=== PATIENT | female | born 1940 | race Caucasian/White ===

== ENCOUNTER 2016-09-05 10:53 | Inpatient (IN) | payer OTHER ==
[~2016-09-05] VITALS: Ht 162.6 cm; Wt 69.8 kg
[2016-09-05] MEDS ORDERED: SODIUM CHLORIDE 0.9% 1000ML 1,000 ML IV STA (11:17)
[2016-09-05] MEDS ORDERED: ONDANSETRON INJ 2 MG/ML 2 ML VIAL IV STA (11:17)
--- NOTE | 2016-09-05 11:19 | EMERGENCY ROOM VISIT NOTE ---
History Report prepared by Radha: Esteban Benjamin Under the Supervision of: Abril EstesO. First contact with patient: 11:10 Chief Complaint: DIARRHEA Stated Complaint: NAUSEA, WEAKNESS, PAGAN, DIARRHEA Nursing Triage Summary: Pt had a colonoscopy approx 1 mo ago, unable to do the whole thing. Pt reports ongoing nausea, diarrhea since May. Upper abd pain. Emesis last night. Also reports wheezing/coughing. History of Present Illness The patient is a 76 year old female who presents to the Emergency Room with complaints of a worsening illness that started around 3 months ago. The patient called her primary care physician's office today, and was recommended to be seen here for evaluation. She says that she has been having nausea, upper abdominal pain, diarrhea, and a cough. She notes that she has been wheezing as well. The patient had a colonoscopy a month ago, but it could not go the whole way. She says that her kidneys are off a bit. The patient says that her nausea and diarrhea have worsened recently, and she has been having trouble eating. She vomited last night. The patient says that her doctor wants the patient to get a CT of her chest. She states that she had an x-ray which showed a possible hiatal hernia. The patient denies any fevers or bleeding. She has diabetes and asthma. The patient does not use tobacco products or drink alcohol. She has a history of an appendectomy. Source of History: patient, family Onset: 3 months ago Position: other (global - illness) Timing: worsening Associated Symptoms: + abdominal pain, + cough, + diarrhea, + nausea, + vomiting, No fevers Note: Associated symptoms: Wheezing. Kidneys off a bit. Denies any bleeding. Review of Systems See HPI for pertinent positives & negatives. A total of 10 systems reviewed and were otherwise negative. Past Medical & Surgical Medical Problems: (1) Asthma (2) Cirrhosis (3) CKD (chronic kidney disease), stage IV (4) DM type 2 (diabetes mellitus, type 2) (5) Dyslipidemia (6) GERRY (generalized anxiety disorder) (7) GERD (gastroesophageal reflux disease) (8) HTN (hypertension) Surgical Problems: (1) H/O sinus surgery (2) History of hysterectomy (3) Hx of appendectomy (4) S/P cardiac cath (5) S/p rectocele repair Family History Family history omitted secondary to patient's advanced age. Social History Smoking Status: Never Smoker Alcohol Use: none Marital Status: Housing Status: lives with family Occupation Status: retired Current/Historical Medications Scheduled Amlodipine (Norvasc), 5 MG PO DAILY Atorvastatin (Lipitor), 10 MG PO HS Buspirone Hcl (Buspirone Hcl), 10 MG PO TID Fluoxetine (Prozac), 40 MG PO DAILY Fluoxetine (Prozac), 20 MG PO DAILY Lutein (Hm Lutein), 1 TAB PO DAILY Multiple Vitamins W/ Minerals (Icaps), 1 CAP PO DAILY Ranitidine Hcl (Zantac), 150 MG PO BID Scheduled PRN Albuterol (Ventolin Hfa), 2 PUFFS INH Q4 PRN for SOB/Wheezing Loperamide Hcl (Imodium), 2 MG PO UD PRN for Diarrhea Lorazepam (Ativan), 0.5 MG PO HS PRN for Anxiety Ondansetron Hcl (Zofran), 4 MG PO Q6H PRN for Nausea Allergies Coded Allergies: Erythromycin (Unverified Allergy, Mild, STOMACH PAIN, 09/05/16) Physical Exam Vital Signs Date Time Temp Pulse Resp B/P Pulse Ox O2 Delivery O2 Flow Rate FiO2 09/05/16 15:13 91 16 09/05/16 15:01 152/78 09/05/16 14:58 91 22 09/05/16 14:43 88 18 09/05/16 14:31 142/85 09/05/16 14:28 90 18 93 09/05/16 14:13 87 20 93 09/05/16 14:01 158/83 09/05/16 13:58 83 18 94 09/05/16 13:43 85 20 96 09/05/16 13:31 132/75 09/05/16 13:28 84 18 94 09/05/16 13:13 83 19 93 09/05/16 13:01 145/84 09/05/16 12:58 87 28 94 09/05/16 12:45 127/89 09/05/16 12:29 88 09/05/16 12:23 86 19 95 09/05/16 12:08 86 19 93 09/05/16 12:01 168/84 09/05/16 11:53 85 16 95 09/05/16 11:44 159/79 09/05/16 11:05 36.8 101 20 145/73 98 Room Air Physical Exam GENERAL: Patient is awake, alert, mildly anxious appearing but comfortable. EYES: The conjunctivae are clear. The pupils are round and reactive. EARS, NOSE, MOUTH AND THROAT: The nose is without any evidence of any deformity. Mucous membranes are moist tongue is midline NECK: The neck is nontender and supple. RESPIRATORY: Normal respiratory effort is noted there is no evidence of wheezing rhonchi or rales CARDIOVASCULAR: Regular rate and rhythm noted there no murmurs rubs or gallops normal S1 normal S2 GASTROINTESTINAL: The abdomen is moderately distended and diffusely tender. Epigastric tenderness to palpation but no guarding or rigidity. MUSCULOSKELETAL/EXTREMITIES: There is no evidence of gross deformity full range of motion is noted in the hips and shoulders SKIN: Trace pedal edema bilaterally. NEUROLOGIC: Patient is awake alert and oriented x3. Medical Decision & Procedures ER Provider Diagnostic Interpretation: CT results as stated below per my review and radiologist interpretation. CHEST CT WITHOUT CONTRAST CT DOSE: HISTORY: Pain chart and abd pain TECHNIQUE: Multiaxial CT images of the chest were performed without contrast. COMPARISON: None. FINDINGS: Fixed hiatal hernia. The bulk of the stomach is superior to the diaphragm. Moderate amount of surrounding and/or reactive fluid within the hiatal hernia. Trace amount of perihepatic ascites. No significant gastric distention. Esophagus is air-filled. Esophagus shows no significant distention. Minimal nonspecific interstitial changes in the left mid to lower lung. No well-defined focal infiltrate is appreciated. No significant mediastinal or hilar adenopathy. Partial substernal extension of the right thyroid. IMPRESSION: 1. Hiatal hernia with the bulk of the stomach superior to the diaphragmatic hiatus. 2. Moderate amount of free fluid surrounding the hiatal hernia presumably reactive. 3. Trace perihepatic ascites. 4. Subtle minimal interstitial change. Electronically signed by: Bud Short M.D. 09/05/2016 12:40 PM Dictated Date/Time: 09/05/2016 12:[address] SCAN OF THE ABDOMEN AND PELVIS WITHOUT IV CONTRAST CLINICAL HISTORY: Epigastric abdominal pain. COMPARISON STUDY: No priors. TECHNIQUE: CT scan of the abdomen and pelvis is performed from the lung bases to the proximal femora. Images are reviewed in the axial, sagittal, and coronal planes. IV contrast was not administered for this examination as per the referring clinician. Note that the examination was performed in significantly suboptimal fashion without oral and IV contrast. Automated dose control exposure was utilized. CT DOSE: 634.71 mGy.cm FINDINGS: Lung bases: The heart is normal in size and there is a small pericardial effusion. There is elevation of left hemidiaphragm with left basilar atelectasis. No airspace consolidation or pleural effusion is identified. Scattered calcified granulomas are noted at the right lung base. Liver: The unenhanced liver is cirrhotic in morphology and heterogeneous in attenuation. There is nodularity of the surface contour and widening of the fissures. There is recanalization of the periumbilical vein. There is mild central intrahepatic biliary ductal dilatation. Gallbladder: Surgically absent noting clips in the gallbladder fossa. Spleen: The spleen is enlarged measuring 15 cm in length. There are perisplenic collateral vessels with evidence of a splenorenal shunt. Pancreas: The unenhanced pancreas is atrophic and grossly unremarkable. Adrenal glands: Unremarkable. Kidneys: The unenhanced kidneys are atrophic and without hydronephrosis. There are least 3 small nonobstructing left renal calculi measuring up to 3 mm. No right renal calculi are identified. There is no evidence of contour deforming renal mass lesion. Subcentimeter cortical hypodensities likely represent cysts but are too small for definitive characterization. Abdominal vasculature: The abdominal aorta is normal in course and caliber noting moderate atherosclerotic calcification. Stomach and bowel: There is a large hiatal hernia with over half of the stomach located in the thoracic cavity. Ascitic fluid is also contained within a hiatal hernia. The duodenum is normal in configuration. A large duodenal diverticulum is noted. There is no bowel obstruction. The appendix is not identified and reported surgically absent. Peritoneum: There is a small volume of abdominopelvic ascites. No intraperitoneal free air is seen. Lymphadenopathy: None. Pelvic viscera: The bladder is decompressed and grossly unremarkable. The uterus is surgically absent. No adnexal lesion is seen. Skeletal structures: The skeletal structures are osteopenic. No lytic or blastic lesions are seen. There is mild lumbosacral spondylosis. Hemangiomas are noted in the lower thoracic levels. IMPRESSION: 1. Significantly suboptimal examination without oral and IV contrast. 2. There are no acute infectious or inflammatory findings in the abdomen or pelvis. 3. Cirrhotic liver morphology with evidence of portal hypertension including splenomegaly, a small volume of abdominopelvic ascites, omental collaterals, and a splenorenal shunt. 4. Large hiatal hernia with over half of the stomach located in the thoracic cavity. 5. Nonobstructing left renal calculi. 6. Additional findings as above. Electronically signed by: Ty Montano M.D. 09/05/2016 1:15 PM Dictated Date/Time: 09/05/2016 12:42 PM Laboratory Results 09/05/16 11:30 Red Blood Count 4.61, Mean Corpuscular Volume 89.2, Mean Corpuscular Hemoglobin 28.2, Mean Corpuscular Hemoglobin Concent 31.6, Mean Platelet Volume 10.4, Neutrophils (%) (Auto) 76.1, Lymphocytes (%) (Auto) 16.4, Monocytes (%) (Auto) 6.6, Eosinophils (%) (Auto) 0.4, Basophils (%) (Auto) 0.3, Neutrophils # (Auto) 10.51, Lymphocytes # (Auto) 2.26, Monocytes # (Auto) 0.91, Eosinophils # (Auto) 0.06, Basophils # (Auto) 0.04 09/05/16 11:30 Test 09/05/16 11:20 09/05/16 11:30 09/05/16 15:25 Urine Color DK YELLOW Urine Appearance CLEAR (CLEAR) Urine pH 5.0 (4.5-7.5) Urine Specific [place] 1.022 (1.000-1.030) Urine Protein NEG (NEG) Urine Glucose (UA) NEG (NEG) Urine Ketones TRACE (NEG) Urine Occult Blood NEG (NEG) Urine Nitrite NEG (NEG) Urine Bilirubin NEG (NEG) Urine Urobilinogen NEG (NEG) Urine Leukocyte Esterase NEG (NEG) White Blood Count 13.81 K/uL (4.8-10.8) Red Blood Count 4.61 M/uL (4.2-5.4) Hemoglobin 13.0 g/dL (12.0-16.0) Hematocrit 41.1 % (37-47) Mean Corpuscular Volume 89.2 fL (80-100) Mean Corpuscular Hemoglobin 28.2 pg (25-34) Mean Corpuscular Hemoglobin Concent 31.6 g/dl (32-36) Platelet Count 214 K/uL (130-400) Mean Platelet Volume 10.4 fL (7.4-10.4) Neutrophils (%) (Auto) 76.1 % Lymphocytes (%) (Auto) 16.4 % Monocytes (%) (Auto) 6.6 % Eosinophils (%) (Auto) 0.4 % Basophils (%) (Auto) 0.3 % Neutrophils # (Auto) 10.51 K/uL (1.4-6.5) Lymphocytes # (Auto) 2.26 K/uL (1.2-3.4) Monocytes # (Auto) 0.91 K/uL (0.11-0.59) Eosinophils # (Auto) 0.06 K/uL (0-0.5) Basophils # (Auto) 0.04 K/uL (0-0.2) RDW Standard Deviation 58.6 fL (36.4-46.3) RDW Coefficient of Variation 18.1 % (11.5-14.5) Immature Granulocyte % (Auto) 0.2 % Immature Granulocyte # (Auto) 0.03 K/uL (0.00-0.02) Prothrombin Time 12.3 SECONDS (9.0-12.0) Prothromb Time International Ratio 1.1 (0.9-1.1) Activated Partial Thromboplast Time 26.9 SECONDS (21.0-31.0) Partial Thromboplastin Ratio 1.0 Anion Gap 9.0 mmol/L (3-11) Est Creatinine Clear Calc Drug Dose 24.2 ml/min Estimated GFR () 29.2 Estimated GFR (Non- 25.2 BUN/Creatinine Ratio 11.7 (10-20) Calcium Level 8.9 mg/dl (8.5-10.1) Total Bilirubin 0.9 mg/dl (0.2-1) Direct Bilirubin 0.4 mg/dl (0-0.2) Aspartate Amino Transf (AST/SGOT) 100 U/L (15-37) Alanine Aminotransferase (ALT/SGPT) 46 U/L (12-78) Alkaline Phosphatase 202 U/L (45-117) Total Creatine Kinase 48 U/L (26-192) Creatine Kinase MB 0.9 ng/ml (0.5-3.6) Creatine Kinase MB Ratio 1.9 (0-3.0) Troponin I 0.023 ng/ml (0-0.045) Total Protein 8.2 gm/dl (6.4-8.2) Albumin 2.9 gm/dl (3.4-5.0) Lipase 177 U/L (73-393) Lactic Acid Level 0.9 mmol/L (0.4-2.0) Laboratory results per my review. Medications Administered Medications (Trade) Dose Ordered Sig/Edilson Route Start Time Stop Time Status Last Admin Dose Admin Sodium Chloride (Nss 1000ml) 1,000 ml @ 999 mls/hr Q1H1M STAT IV 09/05/16 11:17 09/05/16 12:17 DC 09/05/16 11:41 999 MLS/HR Ondansetron HCl 4 mg 4 mg NOW STAT IV 09/05/16 11:17 09/05/16 11:20 DC 09/05/16 11:42 4 MG Pantoprazole Sodium/Syringe (Protonix Inj/ Syringe) 10 ml @ 5 mls/min NOW ONCE IV 09/05/16 11:30 09/05/16 11:31 DC 09/05/16 12:17 5 MLS/MIN ECG Indication: nausea Rate (beats per minute): 96 Rhythm: normal sinus Findings: no ectopy, other (no acute ST segment abnormalities) Comparison ECG Date: no prior available ED Course 1111: The patient was evaluated in room C9. A complete history and physical examination were performed. 1117: Ordered Zofran Inj 4 mg IV, NSS 1000 ml @ 999 mls/hr IV. 1130: Ordered Pantoprazole Sodium 40 mg/Syringe 10 ml @ 5 mls/min IV. 1338: I reevaluated and updated the patient. 1347: I discussed the patient with [facility] - she recommends we discuss the patient with cardiothoracic surgery. 1427: I reevaluated and updated the patient. 1429: I discussed the patient with Dr. [place]derm[place] [facility] [place] - he recommends keeping the patient and doing a formal surgical evaluation to see if the hiatal hernia would be amenable to surgery. 1437: I reevaluated the patient and she is resting comfortably. The patient verbally expressed understanding and agreement with the treatment plan. The patient will be evaluated for further treatment. 1446: I discussed the patient with Dianne Dye. She will evaluate the patient for further treatment. Medical Decision Prior records/ancillary studies reviewed. Triage Nursing notes reviewed. Differential diagnosis: Etiologies such as appendicitis, diverticulitis, PUD, biliary pathology, UTI, pancreatitis, obstruction, mesenteric ischemia, aortic pathology, infections, inflammatory bowel disease, renal colic, as well as others were entertained. The patient is a 76-year-old female who presented to the emergency department for an evaluation of epigastric pain as well as lower chest pain. The patient has had ongoing symptoms for approximately 4 months. The symptoms appear to be significantly debilitating to her and she is unable to eat or drink without having significant pain. The patient had upper abdominal pain to palpation but does not have a surgical abdomen on palpation. The patient was found have a large hiatal hernia on x-ray. CT the abdomen and pelvis as well as chest reveals a very significant hiatal hernia. I feel this explains the patient's symptoms. She was treated with IV fluids as well as proton pump inhibitor in the emergency department. She was also given Zofran in the emergency department. On subsequent reevaluation she was somewhat improved. I initially discussed her case with the on-call airconditioning engineer group. I then discussed her case with cardiothoracic surgery. I feel the patient may require inpatient management for further disposition and possibly testing. Given the size and symptoms that she is having with this hiatal hernia and may be amenable to surgical treatment. The patient was agreeable to this. I discussed her case with the on-call [facility] hospitalist group. They've agreed to evaluate the patient in the emergency department for further management and disposition. Consults Time Called: 1344 Consulting Physician: [facility] Returned Call: 1340 I discussed the patient with [facility] - she recommends we discuss the patient with cardiothoracic surgery. Additional Consults: Time Called: 1415 Consulted Physician: Dr. Baldemar SANTOS CT surgery Returned Call: 1423 Additional Comments: I discussed the patient with Dr. Baldemar SANTOS CT surgery - he recommends keeping the patient and doing a formal surgical evaluation to see if the hiatal hernia would be amenable to surgery. Time Called: 1440 Consulted Physician: Dianne Dye Returned Call: 1443 Additional Comments: I discussed the patient with Dianne Dye. She will evaluate the patient for further treatment. Impression Primary Impression: Hiatal hernia Additional Impressions: Epigastric abdominal pain Nausea Scribe Attestation The scribe's documentation has been prepared under my direction and personally reviewed by me in its entirety. I confirm that the note above accurately reflects all work, treatment, procedures, and medical decision making performed by me. Departure Information Dispostion Being Evaluated By Hospitalist Referrals Marisol Sepulveda M.D. (PCP) Patient Instructions My [facility] Health Problem Qualifiers
[2016-09-05] MEDS ORDERED: PANTOprazole INJ 40 MG in SYRINGE 0 ML IV ONE (11:30)
[2016-09-05 11:42] LABS: BASO % 0.3 %; BASO ABS # 0.04 K/uL (0-0.2); COMPLETE YES; EOS % 0.4 %; HEMATOCRIT 41.1 % (37-47); IG% 0.2 %; LYMPH % 16.4 %; LYMPH ABS # 2.26 K/uL (1.2-3.4); MEAN CELL VOLUME 89.2 fL (80-100); MEAN CORPUSCULAR HEMOGLOBIN 28.2 pg (25-34); MEAN CORPUSCULAR HGB CONC 31.6 g/dl (32-36); MEAN PLATELET VOLUME 10.4 fL (7.4-10.4); MONO % 6.6 %; NEUT % 76.1 %; PLATELET COUNT 214 K/uL (130-400); RED BLOOD COUNT 4.61 M/uL (4.2-5.4); WHITE BLOOD COUNT 13.81 K/uL (4.8-10.8)
[2016-09-05] MEDS ORDERED: IMD/2 PO (11:43)
[2016-09-05] MEDS ORDERED: RANI150T3 PO (11:43)
[2016-09-05] MEDS ORDERED: ONDA4TAB46 PO (11:43)
[2016-09-05 11:46] LABS: URINE APPEARANCE CLEAR (CLEAR); URINE BILIRUBIN NEG (NEG); URINE COLOR DK YELLOW; URINE NITRITE NEG (NEG); URINE SPECIFIC GRAVITY 1.022 (1.000-1.030); UROBILINOGEN NEG (NEG)
[2016-09-05] MEDS ORDERED: ATOR10TA82 PO (11:46)
[2016-09-05] MEDS ORDERED: FLUO20CA35 PO (11:46)
[2016-09-05] MEDS ORDERED: AMLO-110 PO (11:46)
[2016-09-05] MEDS ORDERED: LUTE1CAP4 PO (11:46)
[2016-09-05] MEDS ORDERED: LORA-741 PO (11:46)
[2016-09-05] MEDS ORDERED: MULTCAP98 PO (11:46)
[2016-09-05] MEDS ORDERED: BUSP-8 PO (11:46)
[2016-09-05] MEDS ORDERED: FLUO40CA8 PO (11:46)
[2016-09-05 11:50] LABS: INR 1.1 (0.9-1.1); PROTHROMBIN TIME (PATIENT) 12.3 SECONDS (9.0-12.0)
[2016-09-05 11:55] LABS: MANUAL MICROSCOPIC REQUIRED? NO; REVIEW REQ? NO
[2016-09-05 11:59] LABS: BUN/CREATININE RATIO 11.7 (10-20); CALCIUM 8.9 mg/dl (8.5-10.1); CREATININE 1.9 mg/dl (0.60-1.20); POTASSIUM 4.2 mmol/L (3.5-5.1)
[2016-09-05 12:04] LABS: CKMB/CK RATIO 1.9 (0-3.0)
--- NOTE | 2016-09-05 12:42 | DIAGNOSTIC IMAGING REPORT ---
CHEST CT WITHOUT CONTRAST CT DOSE: HISTORY: Pain chart and abd pain TECHNIQUE: Multiaxial CT images of the chest were performed without contrast. COMPARISON: None. FINDINGS: Fixed hiatal hernia. The bulk of the stomach is superior to the diaphragm. Moderate amount of surrounding and/or reactive fluid within the hiatal hernia. Trace amount of perihepatic ascites. No significant gastric distention. Esophagus is air-filled. Esophagus shows no significant distention. Minimal nonspecific interstitial changes in the left mid to lower lung. No well-defined focal infiltrate is appreciated. No significant mediastinal or hilar adenopathy. Partial substernal extension of the right thyroid. IMPRESSION: 1. Hiatal hernia with the bulk of the stomach superior to the diaphragmatic hiatus. 2. Moderate amount of free fluid surrounding the hiatal hernia presumably reactive. 3. Trace perihepatic ascites. 4. Subtle minimal interstitial change. Electronically signed by: Bud Short M.D. 09/05/2016 12:40 PM Dictated Date/Time: 09/05/2016 12:36 PM
--- NOTE | 2016-09-05 13:16 | DIAGNOSTIC IMAGING REPORT ---
CT SCAN OF THE ABDOMEN AND PELVIS WITHOUT IV CONTRAST CLINICAL HISTORY: Epigastric abdominal pain. COMPARISON STUDY: No priors. TECHNIQUE: CT scan of the abdomen and pelvis is performed from the lung bases to the proximal femora. Images are reviewed in the axial, sagittal, and coronal planes. IV contrast was not administered for this examination as per the referring clinician. Note that the examination was performed in significantly suboptimal fashion without oral and IV contrast. Automated dose control exposure was utilized. CT DOSE: 634.71 mGy.cm FINDINGS: Lung bases: The heart is normal in size and there is a small pericardial effusion. There is elevation of left hemidiaphragm with left basilar atelectasis. No airspace consolidation or pleural effusion is identified. Scattered calcified granulomas are noted at the right lung base. Liver: The unenhanced liver is cirrhotic in morphology and heterogeneous in attenuation. There is nodularity of the surface contour and widening of the fissures. There is recanalization of the periumbilical vein. There is mild central intrahepatic biliary ductal dilatation. Gallbladder: Surgically absent noting clips in the gallbladder fossa. Spleen: The spleen is enlarged measuring 15 cm in length. There are perisplenic collateral vessels with evidence of a splenorenal shunt. Pancreas: The unenhanced pancreas is atrophic and grossly unremarkable. Adrenal glands: Unremarkable. Kidneys: The unenhanced kidneys are atrophic and without hydronephrosis. There are least 3 small nonobstructing left renal calculi measuring up to 3 mm. No right renal calculi are identified. There is no evidence of contour deforming renal mass lesion. Subcentimeter cortical hypodensities likely represent cysts but are too small for definitive characterization. Abdominal vasculature: The abdominal aorta is normal in course and caliber noting moderate atherosclerotic calcification. Stomach and bowel: There is a large hiatal hernia with over half of the stomach located in the thoracic cavity. Ascitic fluid is also contained within a hiatal hernia. The duodenum is normal in configuration. A large duodenal diverticulum is noted. There is no bowel obstruction. The appendix is not identified and reported surgically absent. Peritoneum: There is a small volume of abdominopelvic ascites. No intraperitoneal free air is seen. Lymphadenopathy: None. Pelvic viscera: The bladder is decompressed and grossly unremarkable. The uterus is surgically absent. No adnexal lesion is seen. Skeletal structures: The skeletal structures are osteopenic. No lytic or blastic lesions are seen. There is mild lumbosacral spondylosis. Hemangiomas are noted in the lower thoracic levels. IMPRESSION: 1. Significantly suboptimal examination without oral and IV contrast. 2. There are no acute infectious or inflammatory findings in the abdomen or pelvis. 3. Cirrhotic liver morphology with evidence of portal hypertension including splenomegaly, a small volume of abdominopelvic ascites, omental collaterals, and a splenorenal shunt. 4. Large hiatal hernia with over half of the stomach located in the thoracic cavity. 5. Nonobstructing left renal calculi. 6. Additional findings as above. Electronically signed by: Ty Montano M.D. 09/05/2016 1:15 PM Dictated Date/Time: 09/05/2016 12:42 PM
[2016-09-05] MEDS ORDERED: PRVHFAIN INH (16:00)
[2016-09-05] MEDS ORDERED: ONDANSETRON INJ 2 MG/ML 2 ML VIAL IV PRN (16:00)
[2016-09-05] MEDS ORDERED: LEVALBUTEROL/IPRATROPIUM NEB INH PRN (16:15)
[2016-09-05] MEDS ORDERED: LEVALBUTEROL 0.63MG/3 ML NEB INH PRN (16:45)
[2016-09-05] MEDS ORDERED: IPRATROPIUM BROMIDE NEB SOLN 0.02% 2.5 ML VIAL INH PRN (16:45)
[2016-09-05] MEDS ORDERED: GLUCOSE 40% GEL 15 GM TUBE PO PRN (17:00)
[2016-09-05] MEDS ORDERED: GLUCAGON FOR INJ 1 MG VIAL SQ PRN (17:00)
[2016-09-05] MEDS ORDERED: DEXTROSE 50% 50 ML SYR IV PRN (17:00)
[2016-09-05] MEDS ORDERED: GLUCOSE 10 TABS/TUBE PO PRN (17:00)
--- NOTE | 2016-09-05 17:13 | History and Physical ---
History & Physical Date & Time of Service: September 05, 2016 at 16:03 Chief Complaint: Nausea, Weakness, Pagan, Diarrhea Primary Care Physician: Marisol Sepulveda M.D. History of Present Illness Source: patient, clinic records This is a 76 y/o female with PMH of MD 2, HTN, HL, CKD IV, GERD, asthma, anxiety , and other problems listed below who presents to the ED for N/V. Patient states symptoms started 3 months ago with nausea, dry heaving, diarrhea, pain across the upper abdomen. She reports poor PO intake due to nausea. Only taking sips of liquids. Not able to take in food. She was previously dry heaving but last night developed vomiting and could not keep down her pills. Nausea is improved after IV Zofran given in ED. Abdominal pain is worse if she bends over. Pain is controlled currently. She received IV Protonix in ED. Has occasional reflux. Reports food "getting stuck" when swallowing. Diarrhea has been 4x per day. She reports cough with clear sputum x 2 weeks with wheezing/ SOB, rhinorrhea, PAGAN, chills. She was started on albuterol inhaler by PCP with improvement. Still becomes SOB when she bends forward. Patient has been seen by Dr. Walt Ang of [facility]. Reports having stool studies including culture and C. diff negative in July 2016. Had colonoscopy in [place] with no abnormalities but was only able to scope "part of the way" per patient. Had CXR through primary care on 09/01/16 which showed increase size of density in posterior mediastinum. Pt was informed of these results and was being arranged to have outpatient CT chest. She feels generally weak but has been able to ambulate. Wt trended up 5 lb in past few months per patient. She denies fever, ear ache, sore throat, odynophagia, chest pain, increased abdominal girth, hematemesis, coffee ground emesis, hematochezia, melena, dysuria, frequency, easy bruising, abnormal bleeding, jaundice, confusion, edema, calf pain. No prior dx of cirrhosis. She has never been an alcohol drinker. No hx IVDA. No sick contacts, travel, recent abx. Past Medical/Surgical History Medical Problems: (1) Asthma Status: Chronic (2) CKD (chronic kidney disease), stage IV Status: Chronic (3) DM type 2 (diabetes mellitus, type 2) Status: Chronic (4) Dyslipidemia Status: Chronic (5) GERRY (generalized anxiety disorder) Status: Chronic (6) GERD (gastroesophageal reflux disease) Status: Chronic (7) HTN (hypertension) Status: Chronic Surgical Problems: (1) H/O sinus surgery Status: Chronic (2) History of hysterectomy Status: Chronic (3) Hx of appendectomy Status: Resolved (4) S/P cardiac cath Status: Chronic (5) S/p rectocele repair Status: Chronic Family History Cardiac disorder MOTHER FH: cancer FATHER (lung CA) Social History Smoking Status: Never Smoker Alcohol Use: none Marital Status: Housing status: lives with significant other Occupational Status: retired Allergies Coded Allergies: Erythromycin (Unverified Allergy, Mild, STOMACH PAIN, 09/05/16) Home Medications Scheduled Amlodipine (Norvasc), 5 MG PO DAILY Atorvastatin (Lipitor), 10 MG PO HS Buspirone Hcl (Buspirone Hcl), 10 MG PO TID Fluoxetine (Prozac), 40 MG PO DAILY Fluoxetine (Prozac), 20 MG PO DAILY Lutein (Hm Lutein), 1 TAB PO DAILY Multiple Vitamins W/ Minerals (Icaps), 1 CAP PO DAILY Ranitidine Hcl (Zantac), 150 MG PO BID Scheduled PRN Albuterol (Ventolin Hfa), 2 PUFFS INH Q4 PRN for SOB/Wheezing Loperamide Hcl (Imodium), 2 MG PO UD PRN for Diarrhea Lorazepam (Ativan), 0.5 MG PO HS PRN for Anxiety Ondansetron Hcl (Zofran), 4 MG PO Q6H PRN for Nausea Review of Systems Constitutional: + chills, + weakness (generalized), No fever, No weight loss ENT: + nasal symptoms (rhinorrhea), + trouble swallowing (food "gets stuck" no odynophagia), No sore throat Respiratory: + cough, + shortness of breath (occurs with bending forward), + sputum (clear), + wheezing Cardiovascular: No chest pain, No edema, No orthopnea, No palpitations Abdomen: + diarrhea, + nausea, + pain, + vomiting, No GI bleeding Musculoskeletal: No calf pain Genitourinary - Female: No dysuria, No urinary frequency Neurologic: + problem reported (+ PAGAN intermittent. occasional dizziness with standing. no confusion. ) Psychiatric: + anxiety (worse lately due to illness) Hematologic / Lymphatic: No abnormal bleeding/bruising Integumentary: No color change (no jaundice), No new/changing skin lesions Physical Exam Vital Signs Date Time Temp Pulse Resp B/P Pulse Ox O2 Delivery O2 Flow Rate FiO2 09/05/16 15:13 91 16 09/05/16 15:01 152/78 09/05/16 14:58 91 22 09/05/16 14:43 88 18 09/05/16 14:31 142/85 09/05/16 14:28 90 18 93 09/05/16 14:13 87 20 93 09/05/16 14:01 158/83 09/05/16 13:58 83 18 94 09/05/16 13:43 85 20 96 09/05/16 13:31 132/75 09/05/16 13:28 84 18 94 09/05/16 13:13 83 19 93 09/05/16 13:01 145/84 09/05/16 12:58 87 28 94 09/05/16 12:45 127/89 09/05/16 12:29 88 09/05/16 12:23 86 19 95 09/05/16 12:08 86 19 93 09/05/16 12:01 168/84 09/05/16 11:53 85 16 95 09/05/16 11:44 159/79 09/05/16 11:05 36.8 101 20 145/73 98 Room Air General Appearance: WD/WN, + pertinent finding (alert pleasant anxious 76 year old female, family at bedside) Head: normocephalic, atraumatic Eyes: normal inspection, PERRL, sclerae normal ENT: normal ENT inspection, hearing grossly normal, pharynx normal Neck: supple, trachea midline Respiratory/Chest: lungs clear, normal breath sounds, no respiratory distress, no accessory muscle use Cardiovascular: regular rate, rhythm, no murmur Abdomen/GI: normal bowel sounds, non tender, soft Extremities/Musculoskelatal: no calf tenderness, + pertinent finding (trace pretibial edema bilaterally) Neurologic/Psych: alert, normal mood/affect, oriented x 3, + pertinent finding (no focal deficit on gross examination) Skin: normal color, warm/dry, + pertinent finding (no jaundice, no spider angiomata) Diagnostics Laboratory Results Results Past 24 Hours Test 09/05/16 11:20 09/05/16 11:30 09/05/16 15:25 Range/Units Urine Color DK YELLOW Urine Appearance CLEAR CLEAR Urine pH 5.0 4.5-7.5 Urine Specific [place] 1.022 1.000-1.030 Urine Protein NEG NEG Urine Glucose (UA) NEG NEG Urine Ketones TRACE NEG Urine Occult Blood NEG NEG Urine Nitrite NEG NEG Urine Bilirubin NEG NEG Urine Urobilinogen NEG NEG Urine Leukocyte Esterase NEG NEG White Blood Count 13.81 4.8-10.8 K/uL Red Blood Count 4.61 4.2-5.4 M/uL Hemoglobin 13.0 12.0-16.0 g/dL Hematocrit 41.1 37-47 % Mean Corpuscular Volume 89.2 80-100 fL Mean Corpuscular Hemoglobin 28.2 25-34 pg Mean Corpuscular Hemoglobin Concent 31.6 32-36 g/dl Platelet Count 214 130-400 K/uL Mean Platelet Volume 10.4 7.4-10.4 fL Neutrophils (%) (Auto) 76.1 % Lymphocytes (%) (Auto) 16.4 % Monocytes (%) (Auto) 6.6 % Eosinophils (%) (Auto) 0.4 % Basophils (%) (Auto) 0.3 % Neutrophils # (Auto) 10.51 1.4-6.5 K/uL Lymphocytes # (Auto) 2.26 1.2-3.4 K/uL Monocytes # (Auto) 0.91 0.11-0.59 K/uL Eosinophils # (Auto) 0.06 0-0.5 K/uL Basophils # (Auto) 0.04 0-0.2 K/uL RDW Standard Deviation 58.6 36.4-46.3 fL RDW Coefficient of Variation 18.1 11.5-14.5 % Immature Granulocyte % (Auto) 0.2 % Immature Granulocyte # (Auto) 0.03 0.00-0.02 K/uL Prothrombin Time 12.3 9.0-12.0 SECONDS Prothromb Time International Ratio 1.1 0.9-1.1 Activated Partial Thromboplast Time 26.9 21.0-31.0 SECONDS Partial Thromboplastin Ratio 1.0 Sodium Level 145 136-145 mmol/L Potassium Level 4.2 3.5-5.1 mmol/L Chloride Level 112 98-107 mmol/L Carbon Dioxide Level 24 21-32 mmol/L Anion Gap 9.0 3-11 mmol/L Blood Urea Nitrogen 22 7-18 mg/dl Creatinine 1.90 0.60-1.20 mg/dl Est Creatinine Clear Calc Drug Dose 24.2 ml/min Estimated GFR () 29.2 Estimated GFR (Non- 25.2 BUN/Creatinine Ratio 11.7 10-20 Random Glucose 136 70-99 mg/dl Calcium Level 8.9 8.5-10.1 mg/dl Total Bilirubin 0.9 0.2-1 mg/dl Direct Bilirubin 0.4 0-0.2 mg/dl Aspartate Amino Transf (AST/SGOT) 100 15-37 U/L Alanine Aminotransferase (ALT/SGPT) 46 12-78 U/L Alkaline Phosphatase 202 45-117 U/L Total Creatine Kinase 48 26-192 U/L Creatine Kinase MB 0.9 0.5-3.6 ng/ml Creatine Kinase MB Ratio 1.9 0-3.0 Troponin I 0.023 0-0.045 ng/ml Total Protein 8.2 6.4-8.2 gm/dl Albumin 2.9 3.4-5.0 gm/dl Lipase 177 73-393 U/L Lactic Acid Level 0.9 0.4-2.0 mmol/L Diagnostic Radiology CHEST CT WITHOUT CONTRAST IMPRESSION: 1. Hiatal hernia with the bulk of the stomach superior to the diaphragmatic hiatus. 2. Moderate amount of free fluid surrounding the hiatal hernia presumably reactive. 3. Trace perihepatic ascites. 4. Subtle minimal interstitial change. CT SCAN OF THE ABDOMEN AND PELVIS WITHOUT IV CONTRAST IMPRESSION: 1. Significantly suboptimal examination without oral and IV contrast. 2. There are no acute infectious or inflammatory findings in the abdomen or pelvis. 3. Cirrhotic liver morphology with evidence of portal hypertension including splenomegaly, a small volume of abdominopelvic ascites, omental collaterals, and a splenorenal shunt. 4. Large hiatal hernia with over half of the stomach located in the thoracic cavity. 5. Nonobstructing left renal calculi. 6. Additional findings as above. EKG NSR, 96 bpm, QT prolonged (qtc 490), no ST or T wave abnormality Impression Assessment and Plan ABDOMINAL PAIN Presents with 3 mo hx of upper abdominal pain with diarrhea, nausea, now with vomiting and inability to take in food and pills Outpatient CXR on 09/01/16 showed increase in size of large density in posterior mediastinum, ? worsening large hiatal hernia, space occupying mass cannot be totally excluded, CT chest recommended CT chest shows HH with bulk of stomach superior to diaphragm, moderate free fluid surrounding HH presumably reactive, trace perihepatic ascites, mild interstitial change CT a/p- suboptimal noncontrast exam, no acute infectious/ inflammatory findings , cirrhotic liver morphology with evidence portal hypertension including splenomegaly, small volume abdominopelvic ascites, omental collaterals, splenorenal shunt, large HH, nonobstructing L renal calculi Labs significant for total bili 0.4, AST = 100, alk phos = 202; noted to have normal coags and platelets Cirrhosis is a new diagnosis; non-drinker, low risk for hepatitis, possibly secondary to MORRISON? Clear liquid diet as tolerated IV PPI daily IV lorazepam PRN nausea (will avoid Zofran due to prolonged QT) Consult CT surgery- Dr. Mcdermott aware, next availability to proceed with surgery for HH if needed would be 09/10 Consult GI- June PHILLIPS aware- will see patient tomorrow DIARRHEA Per patient had neg C. diff and stool cx in July 2016 with [facility] Recent colonoscopy in [place] with no abnormalities but was only able to scope "part of the way" per patient Consult GI PROLONGED QT Qtc= 490 Avoid QT prolonging medications Recheck EKG in am HYPERTENSION BP moderately elevated in ER likely due to missed meds this am and anxiety Continue amlodipine 5 mg daily CKD STAGE IV Creat is 1.9; stable from baseline 1.7-2.0 Monitor renal function Avoid nephrotoxins DM TYPE 2 Diet controlled; last A1c 6.5 in 05/2016 Novolog sliding scale BSG AC HS Check A1c in am ASTHMA Not in exacerbation Xopenex nebs PRN ANXIETY Continue fluoxetine and Buspar DYSLIPIDEMIA Hold statin for now DVT PROPHYLAXIS Heparin SQ; needs to be held prior to any procedure CODE STATUS Full code per my discussion w/ the patient. Has a living will. Does not want prolonged life support. DISPOSITION Lives with Follows with Dr. Sepulveda for primary care Patient seen in collaboration with Dr. Dickson. Please see his addendum. VTE Prophylaxis VTE Risk Assessment Done? Y/N: Yes Risk Level: Moderate Note ATTENDING ADDENDUM Record reviewed. Patient interviewed and examined. Care coordinated with Antonia Jacobsen PA-C. Please refer to her documentation for patient's history. Briefly, 76 YO female with history of hypertension, CKD, DM, and other problems. Progressive epigastric discomfort, appetite, and coughing over past few months. EXAM: General- no acute distress VS- as noted HEENT- anicteric Lungs- clear Heart- RRR Abdomen- +BS, slightly distended, mild epigastric discomfort Extremities- 1+ pretibial edema Neuro- alert DATA: Lab studies as noted. CT chest, abdomen, & pelvis: no pulmonary infiltrates large hiatal hernia cirrhosis with portal hypertension, splenomegaly, ascites ASSESSMENT AND PLAN: HIATAL HERNIA Large, symptomatic hiatal hernia. PPI. Consult Thoracic Surgery. CIRRHOSIS Newly diagnosed cirrhosis with portal hypertension. No history of alcohol abuse. Probable NAFLD. Consult GI. DIARRHEA Frequent loose stools. Outpatient work-up negative. Ask GI for their input. Please refer to DANISHA Jacobsen's documentation for discussion of other issues. Louis Dickson MD .
[2016-09-05] MEDS ORDERED: LORAZEPAM 2 MG/ML 1 ML VIAL IV PRN (17:15)
[2016-09-05 17:20] VITALS: BP 164/83; PULSE 103; TEMP 36.7; O2SAT 95
[2016-09-05 18:00] VITALS: Ht 162.6 cm; Wt 69.8 kg
[2016-09-05] MEDS ORDERED: LORAZEPAM INJ 0.5 MG in SYRINGE 0.75 ML IV PRN (18:00)
[2016-09-05] MEDS: SODIUM CHLORIDE 0.9% 1000ML 1,000 ML IV SCH (19:35)
[2016-09-05 19:42] VITALS: BP 147/85; PULSE 90
[2016-09-05] MEDS ORDERED: PANTOprazole INJ 40 MG in SYRINGE 0 ML IV SCH (21:00)
[2016-09-05] MEDS: INSULIN ASPART 100 UNITS/ML 3 ML PEN SC SCH (21:00)
[2016-09-05] MEDS: HEPARIN SOD 5000 UNIT/0.5 ML CARP SQ SCH (21:45)
[2016-09-05 23:11] VITALS: BP 115/65; PULSE 87; TEMP 36.9; O2SAT 93
--- NOTE | 2016-09-06 00:16 | SURGICAL CONSULTATION ---
DATE OF CONSULTATION: 09/05/2016 REASON FOR CONSULTATION: Large hiatal hernia. HISTORY OF PRESENT ILLNESS: This is a very nice 76-year-old female who has multiple medical issues including diabetes mellitus, hypertension, renal insufficiency, gastroesophageal reflux disease and longstanding hiatal hernia who presented to the Emergency Room with a several day history of diarrhea. She then developed nausea, vomiting and then dry heaving. She had pain across her upper abdomen going into her chest. She states that due to her nausea, she took very little in. By the time I saw her on the floor, her abdominal pain had resolved. She did not feel nauseated and was tolerating liquids. She has had diarrhea on and off again for a long period of time and has been worked up by her gastroenterologists including testing her for Clostridium difficile colitis. She recently had a colonoscopy. She became weaker and weaker and finally was admitted here. She has had no fever or chills, no productive cough. She has never used alcohol. She has never used cigarettes. She denies jaundice. PAST MEDICAL HISTORY: 1. Renal insufficiency. 2. Diabetes mellitus. 3. Dyslipidemia. 4. Gastroesophageal reflux disease. 5. Hypertension. 6. Generalized anxiety disorder. 7. Asthma. PAST SURGICAL HISTORY: 1. 2, para 2. 2. History of sinus surgery. 3. Hysterectomy. 4. Appendectomy. 5. Rectocele repair. 6. Cardiac catheterization. MEDICATIONS: 1. Prozac. 2. HM Lutein. 3. Zantac. 4. Buspirone. 5. Lipitor. 6. Norvasc. ALLERGIES: ERYTHROMYCIN UPSETS HER STOMACH. SOCIAL HISTORY: She is and lives with her . She has never smoked cigarettes or used alcohol. Her 2 children and grandchildren are extremely supportive. FAMILY MEDICAL HISTORY: Her father of cancer of the lung. Her mother had "heart issues." Interestingly enough, she has a son who had a hiatal hernia repaired with a fundoplication several years ago. REVIEW OF SYSTEMS: The patient has lost several pounds in the last several weeks. She complains of weakness with some chills occasionally. She denies fevers or night sweats. She complains of food getting stuck in her upper chest. She does have dyspnea on exertion and really has problems bending forward. She also complains of a cough. She has had no yellow or green sputum. She has well-developed wheezing on occasion. She denies palpitations or chest pain other than that described in the history of present illness. She denies joint swelling, but she has had peripheral edema for the first time in her life. She has been quite anxious. She denies any skin breakdown. She has no symptoms. PHYSICAL EXAMINATION: GENERAL: This is a 5 feet 4 inches, 154 pound white female who is quite anxious. She is awake and alert. HEENT: Her extraocular movements are intact. Her pupils are equal, round and reactive. Her sclerae are anicteric. Her tongue is midline. She has no nasolabial flattening. NECK: Supple. She has no supraclavicular or cervical lymphadenopathy, neck vein distention, thyromegaly or carotid bruits. She is actually moving air fairly well. I detect no wheezing; however, she does have some bowel sounds in her chest. HEART: She has a regular rate and rhythm of her heart. She has no significant rub. ABDOMEN: Protuberant. She has active bowel sounds. She is really not tender. I detect no evidence of ascites. She has good femoral pulses. She has good pedal pulses. She has 1+ edema, but no hemosiderin deposition or joint effusions. NEUROLOGIC: She has no asterixis. She has no neuropathic findings. She is awake, alert and oriented. DATA: Her alkaline phosphatase is a bit elevated at 202, but her ALT is within normal limits. Her AST is a bit elevated at 100. Her white count is 13,810 with a hemoglobin of 13. Platelet count is 214,000. I reviewed her CT scan, she does have a very large hiatal hernia; however, she does not appear to have torsion. ASSESSMENT: Very large hiatal hernia. I believe this patient is a candidate for repair of this hiatal hernia. I would like for her to get a barium swallow or an upper endoscopy. The barium swallow would be important to determine whether we would offer her a partial or a full fundoplication. In addition, I believe her esophagus may be shortened, which increases the complexity of this case; however I would still offer it to her. The question of her liver is concerning to me. Gastroenterology will be evaluating her later. Their input on her hepatic issues will help determine her operability. I will be out of town for the next 48 hours. If the wet machine tender and hospitalist concur, I believe this patient could be held and I put her on the schedule early next week. We will perform a laparoscopic repair of her hiatal hernia. PETRA
[2016-09-06] MEDS: SODIUM CHLORIDE 0.9% 1000ML 1,000 ML IV SCH ×3 (03:54→22:05)
[2016-09-06 07:35] VITALS: BP 108/71; PULSE 83; TEMP 36.9; O2SAT 93
[2016-09-06] MEDS: INSULIN ASPART 100 UNITS/ML 3 ML PEN SC SCH ×4 (08:00→21:00)
--- NOTE | 2016-09-06 08:40 | Surgery Progress Note ---
Subjective Date of Service: September 06, 2016. Pt. notes no CP or SOB. She reports diarrhea. She is tolerating liquids well. She notes that at times she has difficulty swallowing solids. Objective Vitals Date Time Temp Pulse Resp B/P Pulse Ox O2 Delivery O2 Flow Rate FiO2 09/06/16 07:35 36.9 83 20 108/71 93 Room Air 09/05/16 23:18 Room Air 09/05/16 23:11 36.9 87 16 115/65 93 Room Air 09/05/16 21:45 Room Air 09/05/16 19:42 90 147/85 09/05/16 18:00 Room Air 09/05/16 17:20 36.7 103 18 164/83 95 Room Air 09/05/16 17:04 64 18 136/75 98 09/05/16 16:53 92 17 94 09/05/16 16:48 93 19 95 09/05/16 16:43 92 15 94 09/05/16 16:38 93 16 93 09/05/16 16:33 93 18 94 09/05/16 16:31 136/75 09/05/16 16:18 93 24 09/05/16 16:03 98 21 09/05/16 16:02 164/88 09/05/16 15:48 91 20 09/05/16 15:33 99 18 09/05/16 15:31 127/80 09/05/16 15:18 93 20 09/05/16 15:13 91 16 09/05/16 15:01 152/78 09/05/16 14:58 91 22 09/05/16 14:43 88 18 09/05/16 14:31 142/85 09/05/16 14:28 90 18 93 09/05/16 14:13 87 20 93 09/05/16 14:01 158/83 09/05/16 13:58 83 18 94 09/05/16 13:43 85 20 96 09/05/16 13:31 132/75 09/05/16 13:28 84 18 94 09/05/16 13:13 83 19 93 09/05/16 13:01 145/84 09/05/16 12:58 87 28 94 09/05/16 12:45 127/89 09/05/16 12:29 88 09/05/16 12:23 86 19 95 09/05/16 12:08 86 19 93 09/05/16 12:01 168/84 09/05/16 11:53 85 16 95 09/05/16 11:44 159/79 09/05/16 11:05 36.8 101 20 145/73 98 Room Air Physical Exam General: + well developed, + well nourished CV: + RRR Pulmonary: + lungs clear, No accessory muscle use, No respiratory distress Abdomen: + non tender, + non-distended, + soft Assessment & Plan 76 year old female with hiatal hernia -GI evaluation pending -consideration for surgical repair of hiatal hernia: -will await GI recommendations about whether barium swallow of EGD to be done
[2016-09-06 08:46] LABS: HEMATOCRIT 36.9 % (37-47); MEAN CELL VOLUME 90.9 fL (80-100); MEAN CORPUSCULAR HEMOGLOBIN 29.1 pg (25-34); MEAN PLATELET VOLUME 10.9 fL (7.4-10.4); PLATELET COUNT 162 K/uL (130-400); RED BLOOD COUNT 4.06 M/uL (4.2-5.4)
[2016-09-06 08:53] LABS: ESTIMATED AVERAGE GLUCOSE 146 mg/dl; HA1C FLAG Normal (Normal)
[2016-09-06] MEDS ORDERED: FLUOXETINE HCL 20 MG CAP PO SCH (09:00)
[2016-09-06] MEDS: AMLODIPINE BESYLATE 5 MG TAB PO SCH (09:03)
[2016-09-06] MEDS: FLUOXETINE HCL 20 MG CAP PO SCH (09:04)
[2016-09-06] MEDS: HEPARIN SOD 5000 UNIT/0.5 ML CARP SQ SCH ×2 (09:09→21:13)
[2016-09-06 09:25] LABS: ALKALINE PHOSPHATASE 167 U/L (45-117); ALT/SGPT 38 U/L (12-78); AST/SGOT 94 U/L (15-37); BLOOD UREA NITROGEN 21 mg/dl (7-18); BUN/CREATININE RATIO 12.1 (10-20); CALCIUM 8.4 mg/dl (8.5-10.1); CARBON DIOXIDE 24 mmol/L (21-32); CHLORIDE 114 mmol/L (98-107); GLUCOSE 120 mg/dl (70-99); POTASSIUM 4.3 mmol/L (3.5-5.1); SODIUM 145 mmol/L (136-145)
[2016-09-06] MEDS ORDERED: DICYCLOMINE HCL 20 MG TAB PO PRN (10:30)
[2016-09-06] MEDS: PANTOprazole INJ 40 MG in SYRINGE 0 ML IV SCH (10:48)
[2016-09-06 12:21] LABS: FERRITIN 64.4 ng/ml (8.0-388.0)
--- NOTE | 2016-09-06 13:07 | Gastrointestinal Consultation ---
Gastrointestinal Consultation Date of Consultation: September 06, 2016 Attending Physician: Kevyn Mcdonald Consulting Physician: Devin Varela Reason for Consultation: Hiatal hernia, nausea, diarrhea, new cirrhosis finding. History of Present Illness Patient is a 76 year old female who presented to ED yesterday w c/o nausea, diarrhea x 3 months. She has been evaluated by [facility] for the diarrhea recently. Denies any new med changes, travel, sick contact, antibx use. She was taking Metformin for DM II up till 6 months ago but this was stopped because of diarrhea. Had stool studies including Cdiff last month which were normal per pt. She also had a recent colonoscopy by Dr. Ang but report they can't "do full exam" and recommended a barium enema study ? virtual colonoscopy. She didn' t manage to get this done as she didn't receive the prep. She also had a previous colonoscopy by Dr. Rhodes 9 yrs ago, normal study per pt. She was told once she has a "spastic colon" tried on Imodium and Bentyl w/o much relief. She is s/p cholecystectomy. Regarding her nausea. She is experiencing trouble w fullness on epigastric area and occasionally getting food stuck around that area as well after eating. Does have reflux symptoms. She reports having SOB when she bends over. She had previously been started w Albuterol by PCP w/o symptoms improvement. She had Chest CT in ED as well as Abd/pelvis CT w/o contrast. Studies showed hiatal hernia w bulk of stomach superior to diaphragm. She has also mod amt of free fluid surrounding the hiatal hernia presumably reactive. She also has trace perihepatic ascites. Incidentally noted cirrhosis liver morphology w evidence of portal HTN including splenomegaly, omental collaterals, splenorenal shunt. Pt denies any known hx of liver disease. She denies hx of illicit drugs, blood transfusions, tattoos, body piercing. Also no family hx of autoimmune diseases. She takes APAP occasionally. LFTs noted to be mildly up: Tbili 0.9, AST 94 ALT 38 Alk phos 167 This AM she is able to tolerate CL diet, but still having diarrhea. Past Medical/Surgical History Medical Problems: (1) Epigastric abdominal pain Status: Acute (2) Hiatal hernia Status: Acute (3) Nausea Status: Acute Past Medical History: Asthma, CKD IV, DM II, Dyslipidemia, GERRY, GERD, HTN Past Surgical History: Sinus surgery, hysterectomy, appendectomy, cardiac cath, rectocele repair Family History Cardiac disorder MOTHER FH: cancer FATHER (lung CA) Social History Smoking Status: Never Smoker Alcohol Use: none Marital Status: Housing Status: lives with family Occupation Status: retired Allergies Coded Allergies: Erythromycin (Unverified Allergy, Mild, STOMACH PAIN, 09/05/16) Current Medications Home Meds and Scripts Medications Dose Route/Sig Max Daily Dose Days Date Category Ventolin Hfa (Albuterol) 60 Puffs/5400 Mcg Aers 2 Puffs INH Q4 PRN 09/05/16 Reported Icaps (Multiple Vitamins W/ Minerals) 1 Cap Cap 1 Cap PO DAILY 09/05/16 Reported Hm Lutein (Lutein) 20 Mg Cap 1 Tab PO DAILY 09/05/16 Reported Norvasc (Amlodipine Besylate) 5 Mg Tab 5 Mg PO DAILY 09/05/16 Reported Prozac (Fluoxetine HCl) 20 Mg Cap 20 Mg PO DAILY 09/05/16 Reported Lipitor (Atorvastatin Calcium) 10 Mg Tab 10 Mg PO HS 09/05/16 Reported Buspirone Hcl 10 Mg Tab 10 Mg PO TID 09/05/16 Reported Prozac (Fluoxetine HCl) 40 Mg Cap 40 Mg PO DAILY 09/05/16 Reported Ativan (Lorazepam) 0.5 Mg Tab 0.5 Mg PO HS PRN 09/05/16 Reported Zofran (Ondansetron HCl) 4 Mg Tab 4 Mg PO Q6H PRN 09/05/16 Reported Zantac (Ranitidine HCl) 150 Mg Tab 150 Mg PO BID 09/05/16 Reported Imodium (Loperamide HCl) 2 Mg Cap 2 Mg PO UD PRN 09/05/16 Reported Review of Systems Constitutional: No chills, No fever Respiratory: No cough, No shortness of breath Cardiac: No chest pain, No edema Abdomen: + diarrhea, + nausea, + pain (epigastric area), No vomiting Physical Exam Date Time Temp Pulse Resp B/P Pulse Ox O2 Delivery O2 Flow Rate FiO2 09/06/16 07:35 36.9 83 20 108/71 93 Room Air 09/06/16 07:15 Room Air 09/05/16 23:18 Room Air 09/05/16 23:11 36.9 87 16 115/65 93 Room Air 09/05/16 21:45 Room Air 09/05/16 19:42 90 147/85 09/05/16 18:00 Room Air 09/05/16 17:20 36.7 103 18 164/83 95 Room Air 09/05/16 17:04 64 18 136/75 98 09/05/16 16:53 92 17 94 09/05/16 16:48 93 19 95 09/05/16 16:43 92 15 94 09/05/16 16:38 93 16 93 09/05/16 16:33 93 18 94 09/05/16 16:31 136/75 09/05/16 16:18 93 24 09/05/16 16:03 98 21 09/05/16 16:02 164/88 09/05/16 15:48 91 20 09/05/16 15:33 99 18 09/05/16 15:31 127/80 09/05/16 15:18 93 20 09/05/16 15:13 91 16 09/05/16 15:01 152/78 09/05/16 14:58 91 22 09/05/16 14:43 88 18 09/05/16 14:31 142/85 09/05/16 14:28 90 18 93 09/05/16 14:13 87 20 93 09/05/16 14:01 158/83 09/05/16 13:58 83 18 94 09/05/16 13:43 85 20 96 09/05/16 13:31 132/75 09/05/16 13:28 84 18 94 09/05/16 13:13 83 19 93 09/05/16 13:01 145/84 09/05/16 12:58 87 28 94 General Appearance: WD/WN, no apparent distress Eyes: normal inspection, PERRL, EOMI Neck: supple, no JVD, trachea midline Respiratory/Chest: normal breath sounds, no respiratory distress, no accessory muscle use Cardiovascular: regular rate, rhythm, no gallop, no murmur Abdomen: normal bowel sounds, non tender, soft Extremities: normal inspection, no pedal edema, no calf tenderness Neurologic/Psych: alert, normal mood/affect, oriented x 3 Skin: normal color, no jaundice, no rash Laboratory Results Last 24 Hours Test 09/05/16 15:25 09/05/16 17:35 09/05/16 20:57 09/06/16 08:30 Lactic Acid Level 0.9 mmol/L Bedside Glucose 110 mg/dl 105 mg/dl White Blood Count 10.70 K/uL Red Blood Count 4.06 M/uL Hemoglobin 11.8 g/dL Hematocrit 36.9 % Mean Corpuscular Volume 90.9 fL Mean Corpuscular Hemoglobin 29.1 pg Mean Corpuscular Hemoglobin Concent 32.0 g/dl RDW Standard Deviation 60.7 fL RDW Coefficient of Variation 18.3 % Platelet Count 162 K/uL Mean Platelet Volume 10.9 fL Sodium Level 145 mmol/L Potassium Level 4.3 mmol/L Chloride Level 114 mmol/L Carbon Dioxide Level 24 mmol/L Anion Gap 7.0 mmol/L Blood Urea Nitrogen 21 mg/dl Creatinine 1.70 mg/dl Est Creatinine Clear Calc Drug Dose 27.0 ml/min Estimated GFR () 33.4 Estimated GFR (Non- 28.8 BUN/Creatinine Ratio 12.1 Random Glucose 120 mg/dl Estimated Average Glucose 146 mg/dl Hemoglobin A1c 6.7 % Calcium Level 8.4 mg/dl Total Bilirubin 0.8 mg/dl Direct Bilirubin mg/dl Aspartate Amino Transf (AST/SGOT) 94 U/L Alanine Aminotransferase (ALT/SGPT) 38 U/L Alkaline Phosphatase 167 U/L Total Protein 6.9 gm/dl Albumin 2.3 gm/dl Test 09/06/16 10:16 09/06/16 11:43 Direct Bilirubin 0.3 mg/dl Iron Level 49 mcg/dl Total Iron Binding Capacity 208 mcg/dl Transferrin 129 mg/dl Transferrin % Saturation 27 % Ferritin 64.4 ng/ml Impression Patient is a 76 year old female w: 1. Hiatal hernia, likely causing her nausea and epigastric abd pain: - CT Surgery following; possible repair next week by Dr. Mcdermott. - CT Surgery recommend Barium swallow vs EGD eval. Pt had CL diet this AM, likely won't clear her stomach well by afternoon given her hernia. Thus we will obtain barium swallow today. Plan for EGD eval tomorrow by Dr. Varela. Keep pt NPO after midnight pls. - Continue Protonix 40mg daily 2. Diarrhea: - Unclear etiology. Had previous Cdiff and stool cx by [facility] which were negative. Thus will defer repeating for now. - She had an incomplete colonoscopy at [facility] and set up for possible ? virtual colonoscopy. - Will try Colestipol 1g BID given cholecystectomy status and Dicyclomine 10mg BID 3. Cirrhosis, likely NAFLD. No signs of decompensation. - Obtain acute hepatitis, autoimmune/hereditary liver disease serologies. - No need for med use to prevent encephalopathy, or diuretics at this time. - Low salt diet, No more than 3g APAP - Encouraged f/u w PCP for management of DM and dyslipidemia - Plan to perform EGD tomorrow which will eval for varices as well. - Need Hep B and C vaccinations if not immune (may be done in outpt setting) - HCC screening [id number]. Plan ATtg addendum: I interviewed and examined pt, reviewed chart and labs. Pt with h/o unexplained diarrhea, also n/v, found to have a large hiatal hernia considering surgical repair. CT showed incidental finding of cirrhosis, splenomegaly, and ascites. Her labs show preserved synthetic function and normal platelets. Regarding her diarrhea - possible overflow diarrhea? pelvic floor dysfunction? microscopic colitis? Would try empiric colestipol. Regarding her surgical risk for HH repair - She is markedly hypoalbuminemic, has pre-existing renal insufficiency, and, despite preservation of bilirubin and plt count, she appears to have portal HTN by imaging. Her MELD score is 12 , and she is CP class B - she is considered at moderate risk for claudio-operative mortality. She is risk for claudio-operative encephalopathy, jaundice, bleeding, renal insufficiency. She is compensated at present, and other than nutritional support, would not recommend any other medical intervention. ASscites - Likely related to hypoalbuminemia, portal HTN. Will request tap.
--- NOTE | 2016-09-06 14:44 | Progress Note ---
Subjective Date of Service: September 06, 2016. Subjective Pt evaluation today including: conversation w/ patient, physical exam, lab review, review of studies, review of inpatient medication list Saw/examined the patient in room 375 She states that she's been having diarrhea since May failed colonoscopy in the past having trouble with nausea/vomiting and PO intake; presented to the ER and found to have hiatal hernia; also found to have cirrhosis Still having nausea/vomiting/diarrhea. No abdominal pain. Problem List Medical Problems: (1) Epigastric abdominal pain Status: Acute (2) Hiatal hernia Status: Acute (3) Nausea Status: Acute Review of Systems Constitutional: No chills, No fever, No weakness Respiratory: No cough, No shortness of breath, No sputum Cardiac: No chest pain Abdomen: + diarrhea, + nausea, + vomiting, No GI bleeding, No constipation, No pain Heme: No abnormal bleeding/bruising Medications Current Inpatient Medications Medications (Trade) Dose Ordered Sig/Edilson Route Start Time Stop Time Status Last Admin Dose Admin Sodium Chloride (Nss 1000ml) 1,000 ml @ 100 mls/hr Q10H IV 09/05/16 16:00 10/05/16 15:59 09/06/16 12:34 100 MLS/HR Amlodipine Besylate (Norvasc Tab) 5 mg DAILY PO 09/06/16 09:00 10/06/16 08:59 09/06/16 09:03 5 MG Fluoxetine HCl (Prozac Cap) 60 mg DAILY PO 09/06/16 09:00 10/06/16 08:59 09/06/16 09:04 60 MG Buspirone HCl 10 mg 10 mg TID PO 09/05/16 21:00 10/05/16 20:59 09/06/16 09:04 10 MG Pantoprazole Sodium/Syringe (Protonix Inj/ Syringe) 10 ml @ 5 mls/min DAILY@11 IV 09/06/16 11:00 10/06/16 10:59 09/06/16 10:48 5 MLS/MIN Heparin Sodium (Porcine) (Heparin Sq 5000 Unit/0.5ml) 5,000 unit Q12 SQ 09/05/16 21:00 10/05/16 20:59 09/06/16 09:09 5,000 UNIT Ipratropium Jenera (Atrovent 0.02% 0.5MG/2.5ML Neb) 0.5 mg Q4R PRN INH 09/05/16 16:45 10/05/16 16:44 Levalbuterol (Xopenex 0.63 Mg/ 3 Ml Neb) 0.63 mg Q4R PRN INH 09/05/16 16:45 10/05/16 16:44 Insulin Aspart (novoLOG ASPART) SLIDING SCALE If C... ACHS SC 09/05/16 21:00 10/05/16 20:59 Glucose (Glucose 40% Gel) 15-30 GRAMS 15 GRAMS... UD PRN PO 09/05/16 17:00 10/05/16 16:59 Glucose (Glucose Chew Tab) 4-8 Tablets 4 Tabl... UD PRN PO 09/05/16 17:00 10/05/16 16:59 Dextrose (Dextrose 50% 50ML Syringe) 25-50ML OF 50% DW IV FOR... UD PRN IV 09/05/16 17:00 10/05/16 16:59 Glucagon 1 mg 1 mg UD PRN SQ 09/05/16 17:00 10/05/16 16:59 Lorazepam/Syringe (Ativan Inj/ Syringe) 1 ml @ 1 mls/min Q6H PRN IV 09/05/16 18:00 10/05/16 17:59 Colestipol HCl (Colestid Tab) 1 gm BID@1000,2200 PO 09/06/16 22:00 10/06/16 21:59 Dicyclomine HCl (Bentyl Tab) 10 mg BID PRN PO 09/06/16 10:30 10/06/16 10:29 Objective Vital Signs Date Time Temp Pulse Resp B/P Pulse Ox O2 Delivery O2 Flow Rate FiO2 09/06/16 07:35 36.9 83 20 108/71 93 Room Air 09/06/16 07:15 Room Air 09/05/16 23:18 Room Air 09/05/16 23:11 36.9 87 16 115/65 93 Room Air 09/05/16 21:45 Room Air 09/05/16 19:42 90 147/85 09/05/16 18:00 Room Air 09/05/16 17:20 36.7 103 18 164/83 95 Room Air 09/05/16 17:04 64 18 136/75 98 5/24/17 16:53 92 17 94 09/05/16 16:48 93 19 95 09/05/16 16:43 92 15 94 09/05/16 16:38 93 16 93 09/05/16 16:33 93 18 94 09/05/16 16:31 136/75 09/05/16 16:18 93 24 09/05/16 16:03 98 21 09/05/16 16:02 164/88 09/05/16 15:48 91 20 09/05/16 15:33 99 18 09/05/16 15:31 127/80 09/05/16 15:18 93 20 09/05/16 15:13 91 16 09/05/16 15:01 152/78 09/05/16 14:58 91 22 09/05/16 14:43 88 18 09/05/16 14:31 142/85 09/05/16 14:28 90 18 93 Physical Exam General Appearance: no apparent distress Respiratory/Chest: no respiratory distress, no accessory muscle use, + decreased breath sounds Cardiovascular: regular rate, rhythm, no edema, no murmur Abdomen: normal bowel sounds, non tender, soft, no organomegaly Extremities: non-tender, normal inspection, no pedal edema Neurologic/Psychiatric: no motor/sensory deficits, alert, normal mood/affect Laboratory Results Last 24 Hours Test 09/05/16 15:25 09/05/16 17:35 09/05/16 20:57 09/06/16 08:04 Lactic Acid Level 0.9 mmol/L Bedside Glucose 110 mg/dl 105 mg/dl 112 mg/dl Test 09/06/16 08:30 09/06/16 10:16 09/06/16 11:43 09/06/16 12:23 White Blood Count 10.70 K/uL Red Blood Count 4.06 M/uL Hemoglobin 11.8 g/dL Hematocrit 36.9 % Mean Corpuscular Volume 90.9 fL Mean Corpuscular Hemoglobin 29.1 pg Mean Corpuscular Hemoglobin Concent 32.0 g/dl RDW Standard Deviation 60.7 fL RDW Coefficient of Variation 18.3 % Platelet Count 162 K/uL Mean Platelet Volume 10.9 fL Sodium Level 145 mmol/L Potassium Level 4.3 mmol/L Chloride Level 114 mmol/L Carbon Dioxide Level 24 mmol/L Anion Gap 7.0 mmol/L Blood Urea Nitrogen 21 mg/dl Creatinine 1.70 mg/dl Est Creatinine Clear Calc Drug Dose 27.0 ml/min Estimated GFR () 33.4 Estimated GFR (Non- 28.8 BUN/Creatinine Ratio 12.1 Random Glucose 120 mg/dl Estimated Average Glucose 146 mg/dl Hemoglobin A1c 6.7 % Calcium Level 8.4 mg/dl Total Bilirubin 0.8 mg/dl Direct Bilirubin mg/dl 0.3 mg/dl Aspartate Amino Transf (AST/SGOT) 94 U/L Alanine Aminotransferase (ALT/SGPT) 38 U/L Alkaline Phosphatase 167 U/L Total Protein 6.9 gm/dl Albumin 2.3 gm/dl Iron Level 49 mcg/dl Total Iron Binding Capacity 208 mcg/dl Transferrin 129 mg/dl Transferrin % Saturation 27 % Ferritin 64.4 ng/ml Hepatitis B Surface Antigen NEG Hepatitis C Antibody NEG Bedside Glucose 102 mg/dl Assessment and Plan This is a 76 year old female with a PMH of CKD stage IV, DM2, HTN, HLD, GERD, hiatal hernia presented with nausea/vomiting/diarrhea, decreased PO intake Large Hiatal Hernia abdominal CT performed - showed large hiatal hernia with half of stomach in thoracic cavity CT surgery following with possible repair next week appreciate GI input - barium swallow to be performed today EGD in AM (09/07) will continue IV PPI for now Zofran PRN NPO after midnight Liver Cirrhosis incidental finding of liver cirrhosis noted 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 colestipol and dicyclomine added as per GI; appreciate input HTN has been controlled today, continue current meds CKD, stage IV creat on admission = 1.9 today = 1.7 baseline is around 1.7-2.0 avoid nephrotoxic agents when able DM2 well controlled, Ha1c < 7% insulin sliding scale while inpatient diet controlled as outpatient Asthma cont. home inhalers Depression/Anxiety continue home medications DVT ppx subq heparin FULL CODE
--- NOTE | 2016-09-06 14:58 | DIAGNOSTIC IMAGING REPORT ---
DOUBLE CONTRAST UPPER GI SERIES CLINICAL HISTORY: Hiatal hernia. COMPARISON STUDY: Abdominal CT dated 09/05/2016. TECHNIQUE: A standard air contrast upper GI series was performed. Spot images of the esophagus and stomach were obtained in multiple obliquities both upright and prone. FINDINGS: The patient swallowed barium without difficulty. The esophagus is structurally normal without evidence of intrinsic or extrinsic mass. There is mild to moderate esophageal dysmotility. The esophageal mucosal pattern is normal. No gastroesophageal reflux was elicited by having the patient perform the Valsalva maneuver. No aspiration was observed during the examination. The gastroesophageal junction distends normally. There is a large hiatal hernia, with the majority of the stomach located above the diaphragm. The gastroesophageal junction is located above the diaphragm, and the right hemidiaphragm is elevated. There is no evidence of gastric mass or ulceration. There was no evidence of gastritis. The duodenal bulb and sweep are normal as imaged noting a large duodenal diverticulum. Fluoroscopy time: 1.4 minutes Fluoroscopic images: 27 IMPRESSION: 1. Esophageal dysmotility. 2. Large hiatal hernia with the majority of the stomach located in the thoracic cavity. This was better characterized on yesterday's abdominal CT. 3. Large duodenal diverticulum. Electronically signed by: Ty Montano M.D. 09/06/2016 2:56 PM Dictated Date/Time: 09/06/2016 2:51 PM
[2016-09-06 15:32] VITALS: BP 137/77; PULSE 89; TEMP 37.2; O2SAT 93
[2016-09-06 17:01] VITALS: BP 137/77; PULSE 89; TEMP 37.2; O2SAT 93
[2016-09-06] MEDS: COLESTIPOL HCL 1 GM TAB PO SCH (22:07)
[2016-09-06 23:06] VITALS: BP 105/64; PULSE 85; TEMP 36.8; O2SAT 94
[2016-09-07] MEDS ORDERED: NURSING VERBAL MED ORDER ONE ×2 (01:30→15:45)
[2016-09-07] MEDS: INSULIN ASPART 100 UNITS/ML 3 ML PEN SC SCH ×4 (06:00→20:53)
[2016-09-07 07:16] LABS: HEMATOCRIT 33.5 % (37-47); MEAN CORPUSCULAR HEMOGLOBIN 29.1 pg (25-34); MEAN CORPUSCULAR HGB CONC 31.9 g/dl (32-36); MEAN PLATELET VOLUME 11.1 fL (7.4-10.4); PLATELET COUNT 157 K/uL (130-400); RED BLOOD COUNT 3.68 M/uL (4.2-5.4)
[2016-09-07 07:41] VITALS: BP 147/81; PULSE 104; TEMP 36.7; O2SAT 94
[2016-09-07 07:42] LABS: CALCIUM 8.1 mg/dl (8.5-10.1); CREATININE 1.7 mg/dl (0.60-1.20); POTASSIUM 4.2 mmol/L (3.5-5.1)
[2016-09-07] MEDS: SODIUM CHLORIDE 0.9% 1000ML 1,000 ML IV SCH ×3 (07:56→22:32)
[2016-09-07 08:00] VITALS: O2SAT 94
[2016-09-07] MEDS ORDERED: ONDANSETRON INJ 2 MG/ML 2 ML VIAL IV STA (09:05)
--- NOTE | 2016-09-07 09:12 | Surgery Progress Note ---
Subjective Date of Service: September 07, 2016. Pt.denies N/V, abdominal pain, or SOB. Objective Vitals Date Time Temp Pulse Resp B/P Pulse Ox O2 Delivery O2 Flow Rate FiO2 09/07/16 07:41 36.7 104 19 147/81 94 Room Air 09/06/16 23:17 Room Air 09/06/16 23:06 36.8 85 18 105/64 94 Room Air 09/06/16 17:01 37.2 89 16 137/77 93 Room Air 09/06/16 17:00 Room Air 09/06/16 15:32 37.2 89 16 137/77 93 Room Air Physical Exam General: + well developed, + well nourished, No distress CV: + RRR Pulmonary: + lungs clear, No accessory muscle use, No respiratory distress Neurologic: + alert & oriented x 3 Assessment & Plan 76 year old female with hiatal hernia -GI evaluation noted: -barium swallow (09/06/16) showed no evidence of extrinsic or intrinsic lesions; dysmotility noted; large hiatal hernia noted; duodenal diverticulum noted -EGD planned for today -d/w hospitalist: -disposition pending findings/recovery from EGD -consideration for surgical repair of hiatal hernia in the future:
[2016-09-07] MEDS ORDERED: ONDANSETRON INJ 2 MG/ML 2 ML VIAL IV PRN (09:15)
[2016-09-07] MEDS: HEPARIN SOD 5000 UNIT/0.5 ML CARP SQ SCH ×2 (09:18→20:56)
[2016-09-07] MEDS ORDERED: PROPOFOL IV EMULSION 10 MG/ML 20 ML VIAL IV ONE (10:49)
[2016-09-07] MEDS ORDERED: LIDOCAINE HCL 2% 2 ML VIAL (20MG/ML) ONE (10:49)
--- NOTE | 2016-09-07 11:35 | Anesthesiology Progress Note ---
Anesthesia Post Op Note Date & Time September 07, 2016 at 11:35 Vital Signs Pain Intensity: 0.0 Vital Signs Past 12 Hours Date Time Temp Pulse Resp B/P Pulse Ox O2 Delivery O2 Flow Rate FiO2 09/07/16 10:44 36.2 82 18 177/79 99 Room Air 09/07/16 08:00 94 Room Air 09/07/16 07:41 36.7 104 19 147/81 94 Room Air Notes Mental Status: alert / awake / arousable, participated in evaluation Pt Amnestic to Procedure: Yes Nausea / Vomiting: adequately controlled Pain: adequately controlled Airway Patency, RR, SpO2: stable & adequate BP & HR: stable & adequate Hydration State: stable & adequate Anesthetic Complications: no major complications apparent
--- NOTE | 2016-09-07 11:59 | GI REPORT ---
Procedure Date: 09/07/2016 11:04 AM Procedure: Upper GI endoscopy Indications: Cirrhosis rule out esophageal varices Medicines: See the Anesthesia note for documentation of the administered medications Complications: No immediate complications. Estimated Blood Loss: Estimated blood loss: none. Procedure: Pre-Anesthesia Assessment: - ASA Grade Assessment: III - A patient with severe systemic disease. After obtaining informed consent, the endoscope was passed under direct vision. Throughout the procedure, the patient's blood pressure, pulse, and oxygen saturations were monitored continuously. The scope was introduced through the mouth, and advanced to the second part of duodenum. The upper GI endoscopy was accomplished without difficulty. The patient tolerated the procedure well. Findings: Three columns of grade II varices were found in the lower third of the esophagus; these were almost, but not quite confluent. No stigmata of recent bleeding were evident and red paola signs were present. One band was successfully placed with incomplete eradication of varices. Because the patient seems at high risk for dysphagia, I only placed one band. The GE junction was at 29 cm. There were no gastric varices. There was no portal gastropathy. There were stripes of nodular erosions in the antrum, suggestive of GAVE. The duodenum was normal. Impression: - Non-bleeding grade II esophageal varices. Incompletely eradicated. Banded. - GAVE. Recommendation: - EGD can be repeated in 4-6 weeks for further banding. I would plan on gradually eradicating her varices - given her age, she seems a poor candidate for aggressive beta blockade, and given her esophageal shortening and large hiatal hernia, she seems at high risk for significant dysphagia if aggressive banding is done. - Discharge patient to floor. Devin Varela M.D. Devin Varela MD 09/07/2016 11:59:23 AM This report has been signed electronically. Note Initiated On: 09/07/2016 11:04 AM I attest to the content of the Intraoperative Record and orders documented therein, exceptions below
[2016-09-07] MEDS ORDERED: BENZOCAIN/TETRACA/BUTAM SPRAY 200 APPLN/20 GM SPRY ONE (12:06)
[2016-09-07 12:40] VITALS: BP 143/83; PULSE 81; TEMP 36.9; O2SAT 93
--- NOTE | 2016-09-07 13:16 | Progress Note ---
Progress Note Date of Service September 07, 2016. Progress Note D/w surgery PA, Saran Freitas, results of EGD. Pt with shortened esophagus that would likely require a Michael gastroplasty, as well as large esophageal varices. She is at high risk for claudio-operative bleeding, based on these results. Would consider doing dx tap of ascites, if technically possible. She is ok for discharge pending these results. Please call with questions over weekend. We will arrange for f/u in our clinic.
[2016-09-07] MEDS: COLESTIPOL HCL 1 GM TAB PO SCH ×2 (14:11→22:32)
[2016-09-07] MEDS: FLUOXETINE HCL 20 MG CAP PO SCH (14:11)
[2016-09-07] MEDS: AMLODIPINE BESYLATE 5 MG TAB PO SCH (14:11)
[2016-09-07] MEDS: PANTOprazole INJ 40 MG in SYRINGE 0 ML IV SCH (14:12)
--- NOTE | 2016-09-07 15:30 | DIAGNOSTIC IMAGING REPORT ---
ULTRASOUND GUIDED PARACENTESIS CLINICAL HISTORY: diagnostic diagnostic paracentesis. Ascites. COMPARISON STUDY: No previous studies for comparison. PROCEDURE: The risks, benefits, and alternatives to the procedure were discussed with the patient including the risk of bleeding, infection and injury to adjacent structures. The patient agreed to the procedure and informed written consent was obtained. The procedure was performed by Dr. Short following a time out. Following real-time ultrasound localization, the skin was prepped and draped. Following local anesthesia with Xylocaine, the sheath paracentesis needle was inserted and approximately 60 cc of straw-colored fluid was removed by vacuum suction. The patient tolerated the procedure well and no immediate complications were evident. IMPRESSION: Ultrasound-guided paracentesis with removal of 60 cc of ascites. No evidence for complication. Electronically signed by: Bud Short M.D. 09/07/2016 3:28 PM Dictated Date/Time: 09/07/2016 3:27 PM
[2016-09-07 15:35] VITALS: BP 154/74; PULSE 85; TEMP 36.8; O2SAT 95
[2016-09-07 16:00] VITALS: O2SAT 95
[2016-09-07 17:15] LABS: PERIT FL WBC 167 /uL (0-300); PERITONEAL FLUID RBC 6000 /uL
--- NOTE | 2016-09-07 21:14 | Progress Note ---
Subjective Date of Service: September 07, 2016. Subjective Pt evaluation today including: conversation w/ patient, physical exam, lab review, review of studies, review of inpatient medication list Saw/examined the patient in room 375 she had her EGD and paracentesis performed today Varices noted and one was banded; 60mL ascitic fluid removed; diagnostic testing sent out She's doing okay today, would like to stay one night in the hospital to make sure she is tolerating her diet Problem List Medical Problems: (1) Epigastric abdominal pain Status: Acute (2) Hiatal hernia Status: Acute (3) Nausea Status: Acute Review of Systems Constitutional: No chills, No fever Respiratory: No shortness of breath Cardiac: No chest pain Abdomen: No GI bleeding, No constipation, No diarrhea, No nausea, No pain, No vomiting Medications Current Inpatient Medications Medications (Trade) Dose Ordered Sig/Edilson Route Start Time Stop Time Status Last Admin Dose Admin Sodium Chloride (Nss 1000ml) 1,000 ml @ 100 mls/hr Q10H IV 09/05/16 16:00 10/05/16 15:59 09/07/16 07:56 100 MLS/HR Amlodipine Besylate (Norvasc Tab) 5 mg DAILY PO 09/06/16 09:00 10/06/16 08:59 09/07/16 14:11 5 MG Fluoxetine HCl (Prozac Cap) 60 mg DAILY PO 09/06/16 09:00 10/06/16 08:59 09/07/16 14:11 60 MG Buspirone HCl 10 mg 10 mg TID PO 09/05/16 21:00 10/05/16 20:59 09/07/16 20:53 10 MG Pantoprazole Sodium/Syringe (Protonix Inj/ Syringe) 10 ml @ 5 mls/min DAILY@11 IV 09/06/16 11:00 10/06/16 10:59 09/07/16 14:12 5 MLS/MIN Heparin Sodium (Porcine) (Heparin Sq 5000 Unit/0.5ml) 5,000 unit Q12 SQ 09/05/16 21:00 10/05/16 20:59 09/07/16 20:56 5,000 UNIT Ipratropium [place] (Atrovent 0.02% 0.5MG/2.5ML Neb) 0.5 mg Q4R PRN INH 09/05/16 16:45 10/05/16 16:44 Levalbuterol (Xopenex 0.63 Mg/ 3 Ml Neb) 0.63 mg Q4R PRN INH 09/05/16 16:45 10/05/16 16:44 Glucose (Glucose 40% Gel) 15-30 GRAMS 15 GRAMS... UD PRN PO 09/05/16 17:00 10/05/16 16:59 Glucose (Glucose Chew Tab) 4-8 Tablets 4 Tabl... UD PRN PO 09/05/16 17:00 10/05/16 16:59 Dextrose (Dextrose 50% 50ML Syringe) 25-50ML OF 50% DW IV FOR... UD PRN IV 09/05/16 17:00 10/05/16 16:59 Glucagon 1 mg 1 mg UD PRN SQ 09/05/16 17:00 10/05/16 16:59 Lorazepam/Syringe (Ativan Inj/ Syringe) 1 ml @ 1 mls/min Q6H PRN IV 09/05/16 18:00 10/05/16 17:59 Colestipol HCl (Colestid Tab) 1 gm BID@1000,2200 PO 09/06/16 22:00 10/06/16 21:59 09/07/16 14:11 1 GM Dicyclomine HCl (Bentyl Tab) 10 mg BID PRN PO 09/06/16 10:30 10/06/16 10:29 Ondansetron HCl (Zofran Inj) 4 mg Q4H PRN IV 09/07/16 09:15 10/07/16 09:14 Insulin Aspart (novoLOG ASPART) SLIDING SCALE If C... ACHS SC 09/07/16 17:15 10/07/16 17:14 09/07/16 18:06 2 UNITS Objective Vital Signs Date Time Temp Pulse Resp B/P Pulse Ox O2 Delivery O2 Flow Rate FiO2 09/07/16 16:00 95 Room Air 09/07/16 15:35 36.8 85 18 154/74 95 Room Air 09/07/16 12:40 36.9 81 18 143/83 93 Room Air 09/07/16 11:50 80 16 144/78 94 Room Air 09/07/16 11:40 89 16 142/75 98 Room Air 09/07/16 11:30 82 16 122/59 94 Room Air 09/07/16 10:44 36.2 82 18 177/79 99 Room Air 09/07/16 08:00 94 Room Air 09/07/16 07:41 36.7 104 19 147/81 94 Room Air 09/06/16 23:17 Room Air 09/06/16 23:06 36.8 85 18 105/64 94 Room Air Physical Exam General Appearance: no apparent distress Respiratory/Chest: lungs clear, normal breath sounds, no respiratory distress, no accessory muscle use Cardiovascular: regular rate, rhythm, no edema, no murmur Abdomen: normal bowel sounds, non tender, soft Neurologic/Psychiatric: no motor/sensory deficits, alert, normal mood/affect Laboratory Results Last 24 Hours Test 09/07/16 00:00 09/07/16 06:02 09/07/16 07:00 09/07/16 12:45 Peritoneal Fluid Color PINKISH YELLOW Peritoneal Fluid Appearance CLOUDY Peritoneal Fluid WBC 167 /uL Peritoneal Fluid RBC 6000 /uL Peritoneal Fld Mononuclear WBCs (%) 79.3 % Peritoneal Fld Polynuclear WBCs (%) 20.7 % Peritoneal Fluid Total Protein 1.0 g/dl Peritoneal Fluid Albumin < 0.6 g/dl Bedside Glucose 121 mg/dl 111 mg/dl White Blood Count 9.40 K/uL Red Blood Count 3.68 M/uL Hemoglobin 10.7 g/dL Hematocrit 33.5 % Mean Corpuscular Volume 91.0 fL Mean Corpuscular Hemoglobin 29.1 pg Mean Corpuscular Hemoglobin Concent 31.9 g/dl RDW Standard Deviation 61.6 fL RDW Coefficient of Variation 18.4 % Platelet Count 157 K/uL Mean Platelet Volume 11.1 fL Nucleated RBC Absolute Count (auto) 0.09 K/uL Nucleated Red Blood Cells % 1.0 % Sodium Level 148 mmol/L Potassium Level 4.2 mmol/L Chloride Level 117 mmol/L Carbon Dioxide Level 25 mmol/L Anion Gap 6.0 mmol/L Blood Urea Nitrogen 20 mg/dl Creatinine 1.70 mg/dl Est Creatinine Clear Calc Drug Dose 27.0 ml/min Estimated GFR () 33.4 Estimated GFR (Non- 28.8 BUN/Creatinine Ratio 12.0 Random Glucose 122 mg/dl Calcium Level 8.1 mg/dl Test 09/07/16 17:11 09/07/16 20:35 Bedside Glucose 126 mg/dl 121 mg/dl Assessment and Plan This is a 76 year old female with a PMH of CKD stage IV, DM2, HTN, HLD, GERD, hiatal hernia presented with nausea/vomiting/diarrhea, decreased PO intake Large Hiatal Hernia 09/07 EGD performed, showing esophageal varices one banded; no b-destini, repeat EGD in 6 weeks for possible additional banding switch to Protonix on discharge, Zofran 09/[address] performed - showed large hiatal hernia with half of stomach in thoracic cavity CT surgery following with possible repair next week appreciate GI input - barium swallow to be performed today EGD in AM (09/07) will continue IV PPI for now Zofran PRN NPO after midnight Liver Cirrhosis 09/07 studies pending s/p paracentesis ascitic fluid sent out for diagnostic testing 09/06 incidental finding of liver cirrhosis noted 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 colestipol and dicyclomine added as per GI; appreciate input HTN has been controlled today, continue current meds CKD, stage IV creat on admission = 1.9 today = 1.7 baseline is around 1.7-2.0 avoid nephrotoxic agents when able DM2 well controlled, Ha1c < 7% insulin sliding scale while inpatient diet controlled as outpatient Asthma cont. home inhalers Depression/Anxiety continue home medications DVT ppx subq heparin FULL CODE
[2016-09-07 23:29] VITALS: BP 154/81; PULSE 85; TEMP 36.8; O2SAT 93
[2016-09-08 06:43] LABS: HEMATOCRIT 34.2 % (37-47); MEAN CELL VOLUME 91.7 fL (80-100); MEAN CORPUSCULAR HEMOGLOBIN 29.2 pg (25-34); MEAN CORPUSCULAR HGB CONC 31.9 g/dl (32-36); MEAN PLATELET VOLUME 10.8 fL (7.4-10.4); PLATELET COUNT 154 K/uL (130-400); RED BLOOD COUNT 3.73 M/uL (4.2-5.4); WHITE BLOOD COUNT 9.31 K/uL (4.8-10.8)
[2016-09-08 07:18] LABS: BUN/CREATININE RATIO 12.3 (10-20); CREATININE 1.6 mg/dl (0.60-1.20); POTASSIUM 3.9 mmol/L (3.5-5.1)
[2016-09-08 07:52] VITALS: BP 107/70; PULSE 79; TEMP 36.6; O2SAT 95
[2016-09-08 08:00] VITALS: O2SAT 95
[2016-09-08] MEDS: FLUOXETINE HCL 20 MG CAP PO SCH (08:40)
[2016-09-08] MEDS: AMLODIPINE BESYLATE 5 MG TAB PO SCH (08:40)
[2016-09-08] MEDS: INSULIN ASPART 100 UNITS/ML 3 ML PEN SC SCH ×2 (08:48→12:00)
[2016-09-08] MEDS: HEPARIN SOD 5000 UNIT/0.5 ML CARP SQ SCH (08:48)
[2016-09-08] MEDS: COLESTIPOL HCL 1 GM TAB PO SCH (11:13)
--- NOTE | 2016-09-08 11:38 | SURGERY PROGRESS NOTE ---
DATE: 09/08/2016 DATE: 09/08/2016. Dr. Varela's input has been greatly appreciated. I agree completely that a shortened esophagus which would require a Michael gastroplasty in the face of a patient with liver failure is a recipe for disaster. We will hold off any thoughts of surgical intervention at this point. I had a very long discussion with the patient. She understands. She does look better and from my standpoint can be discharged at the primary service's leisure. PETRA
--- NOTE | 2016-09-08 11:53 | Progress Note ---
Subjective Date of Service: September 08, 2016. Subjective Pt evaluation today including: conversation w/ patient, physical exam, lab review, review of studies, review of inpatient medication list Saw/examined the patient in room 375 She's doing well, had her breakfast, tolerated it with no nausea/vomiting had a BM this morning which was more solid than yesterday Problem List Medical Problems: (1) Epigastric abdominal pain Status: Acute (2) Hiatal hernia Status: Acute (3) Nausea Status: Acute Review of Systems Constitutional: No chills, No fever Respiratory: No shortness of breath Cardiac: No chest pain Abdomen: + diarrhea (improving), + nausea, No GI bleeding, No constipation, No pain, No vomiting Heme: No abnormal bleeding/bruising Medications Current Inpatient Medications Medications (Trade) Dose Ordered Sig/Edilson Route Start Time Stop Time Status Last Admin Dose Admin Sodium Chloride (Nss 1000ml) 1,000 ml @ 100 mls/hr Q10H IV 09/05/16 16:00 10/05/16 15:59 09/07/16 22:32 100 MLS/HR Amlodipine Besylate (Norvasc Tab) 5 mg DAILY PO 09/06/16 09:00 10/06/16 08:59 09/08/16 08:40 5 MG Fluoxetine HCl (Prozac Cap) 60 mg DAILY PO 09/06/16 09:00 10/06/16 08:59 09/08/16 08:40 60 MG Buspirone HCl 10 mg 10 mg TID PO 09/05/16 21:00 10/05/16 20:59 09/08/16 08:41 10 MG Pantoprazole Sodium/Syringe (Protonix Inj/ Syringe) 10 ml @ 5 mls/min DAILY@11 IV 09/06/16 11:00 10/06/16 10:59 09/07/16 14:12 5 MLS/MIN Heparin Sodium (Porcine) (Heparin Sq 5000 Unit/0.5ml) 5,000 unit Q12 SQ 09/05/16 21:00 10/05/16 20:59 09/08/16 08:48 5,000 UNIT Ipratropium [place] (Atrovent 0.02% 0.5MG/2.5ML Neb) 0.5 mg Q4R PRN INH 09/05/16 16:45 10/05/16 16:44 Levalbuterol (Xopenex 0.63 Mg/ 3 Ml Neb) 0.63 mg Q4R PRN INH 09/05/16 16:45 10/05/16 16:44 Glucose (Glucose 40% Gel) 15-30 GRAMS 15 GRAMS... UD PRN PO 09/05/16 17:00 10/05/16 16:59 Glucose (Glucose Chew Tab) 4-8 Tablets 4 Tabl... UD PRN PO 09/05/16 17:00 10/05/16 16:59 Dextrose (Dextrose 50% 50ML Syringe) 25-50ML OF 50% DW IV FOR... UD PRN IV 09/05/16 17:00 10/05/16 16:59 Glucagon 1 mg 1 mg UD PRN SQ 09/05/16 17:00 10/05/16 16:59 Lorazepam/Syringe (Ativan Inj/ Syringe) 1 ml @ 1 mls/min Q6H PRN IV 09/05/16 18:00 10/05/16 17:59 Colestipol HCl (Colestid Tab) 1 gm BID@1000,2200 PO 09/06/16 22:00 10/06/16 21:59 09/08/16 11:13 1 GM Dicyclomine HCl (Bentyl Tab) 10 mg BID PRN PO 09/06/16 10:30 10/06/16 10:29 Ondansetron HCl (Zofran Inj) 4 mg Q4H PRN IV 09/07/16 09:15 10/07/16 09:14 Insulin Aspart (novoLOG ASPART) SLIDING SCALE If C... ACHS SC 09/07/16 17:15 10/07/16 17:14 09/08/16 08:48 2 UNITS Objective Vital Signs Date Time Temp Pulse Resp B/P Pulse Ox O2 Delivery O2 Flow Rate FiO2 09/08/16 08:00 95 Room Air 09/08/16 07:52 36.6 79 16 107/70 95 Room Air 09/07/16 23:45 Room Air 09/07/16 23:29 36.8 85 16 154/81 93 Room Air 09/07/16 16:00 95 Room Air 09/07/16 15:35 36.8 85 18 154/74 95 Room Air 09/07/16 12:40 36.9 81 18 143/83 93 Room Air Physical Exam General Appearance: no apparent distress Respiratory/Chest: lungs clear, normal breath sounds, no respiratory distress, no accessory muscle use Cardiovascular: regular rate, rhythm, no edema Abdomen: normal bowel sounds, non tender, soft, no organomegaly Extremities: normal inspection, no pedal edema Neurologic/Psychiatric: no motor/sensory deficits, alert, normal mood/affect Laboratory Results Last 24 Hours Test 09/07/16 12:45 09/07/16 17:11 09/07/16 20:35 09/08/16 05:55 Bedside Glucose 111 mg/dl 126 mg/dl 121 mg/dl White Blood Count 9.31 K/uL Red Blood Count 3.73 M/uL Hemoglobin 10.9 g/dL Hematocrit 34.2 % Mean Corpuscular Volume 91.7 fL Mean Corpuscular Hemoglobin 29.2 pg Mean Corpuscular Hemoglobin Concent 31.9 g/dl RDW Standard Deviation 62.4 fL RDW Coefficient of Variation 18.5 % Platelet Count 154 K/uL Mean Platelet Volume 10.8 fL Sodium Level 149 mmol/L Potassium Level 3.9 mmol/L Chloride Level 119 mmol/L Carbon Dioxide Level 21 mmol/L Anion Gap 9.0 mmol/L Blood Urea Nitrogen 20 mg/dl Creatinine 1.60 mg/dl Est Creatinine Clear Calc Drug Dose 28.7 ml/min Estimated GFR () 35.9 Estimated GFR (Non- 31.0 BUN/Creatinine Ratio 12.3 Random Glucose 137 mg/dl Calcium Level 8.0 mg/dl Magnesium Level 2.0 mg/dl Test 09/08/16 07:57 Bedside Glucose 125 mg/dl Assessment and Plan This is a 76 year old female with a PMH of CKD stage IV, DM2, HTN, HLD, GERD, hiatal hernia presented with nausea/vomiting/diarrhea, decreased PO intake Large Hiatal Hernia 09/08 tolerated her dinner and breakfast No diarrhea, no nausea/vomiting can d/c home today 09/07 EGD performed, showing esophageal varices one banded; no b-destini, repeat EGD in 6 weeks for possible additional banding switch to Protonix on discharge, Zofran 09/[address] performed - showed large hiatal hernia with half of stomach in thoracic cavity CT surgery following with possible repair next week appreciate GI input - barium swallow to be performed today EGD in AM (09/07) will continue IV PPI for now Zofran PRN NPO after midnight Liver Cirrhosis 09/07 studies pending s/p paracentesis ascitic fluid sent out for diagnostic testing 09/06 incidental finding of liver cirrhosis noted 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 colestipol and dicyclomine added as per GI; appreciate input HTN has been controlled today, continue current meds CKD, stage IV creat on admission = 1.9 today = 1.7 baseline is around 1.7-2.0 avoid nephrotoxic agents when able DM2 well controlled, Ha1c < 7% insulin sliding scale while inpatient diet controlled as outpatient Asthma cont. home inhalers Depression/Anxiety continue home medications DVT ppx subq heparin FULL CODE
[2016-09-08] MEDS ORDERED: RANI150T3 PO (12:03)
[2016-09-08] MEDS ORDERED: PANT40TA PO (12:03)
[2016-09-08] MEDS ORDERED: ONDA8TAB62 SL (12:03)
[2016-09-08] MEDS ORDERED: CLS1 PO (12:03)
[2016-09-08] MEDS ORDERED: BNT20 PO (12:03)
--- NOTE | 2016-09-08 12:14 | Discharge Instructions ---
Discharge Instructions Date of Service September 08, 2016. Admission Reason for Admission: Cirrhosis Epigastric Abdominal Pain Niatal Hernia Discharge Discharge Diagnosis / Problem: Liver Cirrhosis, Hiatal Hernia, Ascites, Varices , Diarrhea Discharge Goals Goal(s): Decrease discomfort, Improve function, Diagnostic testing, Therapeutic intervention Activity Recommendations Activity Limitations: resume your previous activity . Instructions / Follow-Up Instructions / Follow-Up Please follow-up with Dr. Nunez (covering for Dr. Sepulveda) on September 14 at 2:45PM You will need to follow-up with gastroenterology - you will get a call for a follow-up Current Hospital Diet Patient's current hospital diet: Diabetes Type 2 Diet Discharge Diet Recommended Diet: Diabetes Type 2 Diet Procedures Procedures Performed: EGD WITH BANDING Pending Studies Studies pending at discharge: no Laboratory Results Hemoglobin A1c Test 09/06/16 08:30 Range/Units Estimated Average Glucose 146 mg/dl Hemoglobin A1c 6.7 H 4.5-5.6 % Medical Emergencies . Who to Call and When: Medical Emergencies: If at any time you feel your situation is an emergency, please call 911 immediately. . Non-Emergent Contact Non-Emergency issues call your: Primary Care Provider . . "Provider Documentation" section prepared by Kevyn Mcdonald. . VTE Core Measure Inpt VTE Proph given/why not?: Unfractionated heparin SQ
--- NOTE | 2016-09-08 12:21 | Discharge Summary ---
Discharge Summary Date of Service September 08, 2016. Discharge Summary Admission Date: September 05, 2016 at 15:55 Discharge Date: September 08, 2016 Discharge Disposition: Home Principal Diagnosis: Hiatal Hernia Liver Cirrhosis Ascites Esophageal Varices Medication Reconciliation New Medications: Ondansetron Odt (Zofran Odt) 8 Mg Soltab 8 MG SL Q6H PRN for Nausea for 15 Days, #60 TAB Pantoprazole Sodium (Protonix) 40 Mg Tab 40 MG PO DAILY for 30 Days, #30 TAB Colestipol HCl (Colestid) 1 Gm Tab 1 GM PO BID@1000,2200 for 30 Days, #60 TAB Dicyclomine HCl (Dicyclomine HCl) 20 Mg Tab 10 MG PO BID PRN for diarrhea for 30 Days, #30 TAB Changed Medications: Ranitidine Hcl (Zantac) 150 Mg Tab 150 MG PO DAILY for 30 Days, #30 TAB (Changed from: BID) Continued Medications: Albuterol (Ventolin Hfa) 60 Puffs/5400 Mcg Aers 2 PUFFS INH Q4 PRN for SOB/Wheezing Amlodipine (Norvasc) 5 Mg Tab 5 MG PO DAILY, TAB Atorvastatin (Lipitor) 10 Mg Tab 10 MG PO HS, TAB Buspirone Hcl (Buspirone Hcl) 10 Mg Tab 10 MG PO TID, TAB Fluoxetine (Prozac) 40 Mg Cap 40 MG PO DAILY, CAP Fluoxetine (Prozac) 20 Mg Cap 20 MG PO DAILY, CAP Lorazepam (Ativan) 0.5 Mg Tab 0.5 MG PO HS PRN for Anxiety, TAB Lutein (Hm Lutein) 20 Mg Cap 1 TAB PO DAILY Multiple Vitamins W/ Minerals (Icaps) 1 Cap Cap 1 CAP PO DAILY Ondansetron Hcl (Zofran) 4 Mg Tab 4 MG PO Q6H PRN for Nausea, TAB Discontinued Medications: Loperamide Hcl (Imodium) 2 Mg Cap 2 MG PO UD PRN for Diarrhea, CAP Admission Information HPI (per Admitting provider): This is a 76 y/o female with PMH of MD 2, HTN, HL, CKD IV, GERD, asthma, anxiety , and other problems listed below who presents to the ED for N/V. Patient states symptoms started 3 months ago with nausea, dry heaving, diarrhea, pain across the upper abdomen. She reports poor PO intake due to nausea. Only taking sips of liquids. Not able to take in food. She was previously dry heaving but last night developed vomiting and could not keep down her pills. Nausea is improved after IV Zofran given in ED. Abdominal pain is worse if she bends over. Pain is controlled currently. She received IV Protonix in ED. Has occasional reflux. Reports food "getting stuck" when swallowing. Diarrhea has been 4x per day. She reports cough with clear sputum x 2 weeks with wheezing/ SOB, rhinorrhea, PAGAN, chills. She was started on albuterol inhaler by PCP with improvement. Still becomes SOB when she bends forward. Patient has been seen by Dr. Walt Ang of [facility]. Reports having stool studies including culture and C. diff negative in July 2016. Had colonoscopy in [place] with no abnormalities but was only able to scope "part of the way" per patient. Had CXR through primary care on 09/01/16 which showed increase size of density in posterior mediastinum. Pt was informed of these results and was being arranged to have outpatient CT chest. She feels generally weak but has been able to ambulate. Wt trended up 5 lb in past few months per patient. She denies fever, ear ache, sore throat, odynophagia, chest pain, increased abdominal girth, hematemesis, coffee ground emesis, hematochezia, melena, dysuria, frequency, easy bruising, abnormal bleeding, jaundice, confusion, edema, calf pain. No prior dx of cirrhosis. She has never been an alcohol drinker. No hx IVDA. No sick contacts, travel, recent abx. Physical Exam (per Admitting): General Appearance: WD/WN, + pertinent finding (alert pleasant anxious 76 year old female, family at bedside) Head: normocephalic, atraumatic Eyes: normal inspection, PERRL, sclerae normal ENT: normal ENT inspection, hearing grossly normal, pharynx normal Neck: supple, trachea midline Respiratory/Chest: lungs clear, normal breath sounds, no respiratory distress, no accessory muscle use Cardiovascular: regular rate, rhythm, no murmur Abdomen/GI: normal bowel sounds, non tender, soft Extremities/Musculoskelatal: no calf tenderness, + pertinent finding (trace pretibial edema bilaterally) Neurologic/Psych: alert, normal mood/affect, oriented x 3, + pertinent finding (no focal deficit on gross examination) Skin: normal color, warm/dry, + pertinent finding (no jaundice, no spider angiomata) Hospital Course This is a 76 year old female with a PMH of CKD stage IV, DM2, HTN, HLD, GERD, hiatal hernia presented with nausea/vomiting/diarrhea, decreased PO intake Large Hiatal Hernia 09/08 tolerated her dinner and breakfast No diarrhea, no nausea/vomiting can d/c home today 09/07 EGD performed, showing esophageal varices one banded; no b-destini, repeat EGD in 6 weeks for possible additional banding switch to Protonix on discharge, Zofran 09/[address] performed - showed large hiatal hernia with half of stomach in thoracic cavity CT surgery following with possible repair next week appreciate GI input - barium swallow to be performed today EGD in AM (09/07) will continue IV PPI for now Zofran PRN NPO after midnight Liver Cirrhosis 09/07 studies pending s/p paracentesis ascitic fluid sent out for diagnostic testing 09/06 incidental finding of liver cirrhosis noted 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 colestipol and dicyclomine added as per GI; appreciate input HTN has been controlled today, continue current meds CKD, stage IV creat on admission = 1.9 today = 1.7 baseline is around 1.7-2.0 avoid nephrotoxic agents when able DM2 well controlled, Ha1c < 7% insulin sliding scale while inpatient diet controlled as outpatient Asthma cont. home inhalers Depression/Anxiety continue home medications DVT ppx subq heparin FULL CODE Total time spent on discharge = 40 minutes This includes examination of the patient, discharge planning, medication reconciliation, and communication with other providers. Discharge Instructions Please follow-up with Dr. Nunez (covering for Dr. Sepulveda) on September 14 at 2:45PM You will need to follow-up with gastroenterology - you will get a call for a follow-up
[2016-09-08] MEDS: PANTOprazole INJ 40 MG in SYRINGE 0 ML IV SCH (12:25)
[2016-09-08 13:13] VITALS: BP 107/70; PULSE 79; TEMP 36.6; O2SAT 95
[2016-09-11 14:39] LABS: ALBUMIN 2.5 G/DL (3.8-4.8); ALPHA-1-ANTITRYPSIN TC 67710E 141 MG/DL (83-199); GAMMA GLOBULIN 1.6 G/DL (0.8-1.7); IGA SERUM 529 mg/dL (81-463); TIS TRANS IGA 1 U/mL (<4); TOTAL PROTEIN 6.1 G/DL (6.2-8.3)
[2016-10-29] MEDS ORDERED: PRMT25 PO (11:34)
[2016-10-29] MEDS ORDERED: QSTP PO (11:34)
[2016-10-29] MEDS ORDERED: POTTAB2 PO (11:34)
[2016-12-11] MEDS ORDERED: ATV5 PO (12:18)
[2016-12-11] MEDS ORDERED: BENZ100C7 PO (12:18)
[2016-12-11] MEDS ORDERED: NUTR-7 PO (12:18)
[2016-12-11] MEDS ORDERED: BUSP-8 PO (12:18)
[2016-12-11] MEDS ORDERED: PRMT10 PO (12:18)
[2016-12-11] MEDS ORDERED: OXYC-57 PO (12:18)
[2016-12-11] MEDS ORDERED: RMR15 PO (12:18)
[2016-12-11] MEDS ORDERED: AFRIN (12:18)
[2016-12-11] MEDS ORDERED: POLY335019 PO (12:19)
== END 2016-09-08 13:53 | disposition home health service (06) | DRG 392 ==
LOC: ENRESERVTM → ENRESERVDT → C.EDB 10:56 → C.MSN 15:55 → EDBEDREQSVC 16:01
PROVIDERS: ADMIT Hospitalist; ATTEND Family Medicine
PROC: 06L34CZ Occlusion of Esophageal Vein with Extraluminal Device, Percutaneous Endoscopic Approach (ICD-10-PCS; 2016-09-07)
PROC: 0W9G3ZZ Drainage of Peritoneal Cavity, Percutaneous Approach (ICD-10-PCS; principal; 2016-09-07 11:15)
DX: K44.9 Diaphragmatic hernia without obstruction or gangrene (principal); K76.6 Portal hypertension; N18.4 Chronic kidney disease, stage 4 (severe); I85.00 Esophageal varices without bleeding; K74.60 Unspecified cirrhosis of liver; E11.22 Type 2 diabetes mellitus with diabetic chronic kidney disease; K21.9 Gastro-esophageal reflux disease without esophagitis; I12.9 Hypertensive chronic kidney disease with stage 1 through stage 4 chronic kidney disease, or unspecified chronic kidney disease; E78.5 Hyperlipidemia, unspecified; R19.7 Diarrhea, unspecified; J45.909 Unspecified asthma, uncomplicated; Z79.899 Other long term (current) drug therapy; F41.1 Generalized anxiety disorder; K31.819 Angiodysplasia of stomach and duodenum without bleeding

== ENCOUNTER 2016-09-21 22:59 | Emergency (ER) | payer OTHER ==
[~2016-09-21] VITALS: Ht 162.6 cm; Wt 71.9 kg
[~2016-09-21 22:59] MED LIST: AMLO-110 PO; ATOR10TA82 PO; BNT20 PO; BUSP-8 PO; CLS1 PO; FLUO20CA35 PO; FLUO40CA8 PO; LORA-741 PO; LUTE1CAP4 PO; MULTCAP98 PO; ONDA4TAB46 PO; ONDA8TAB62 SL; PANT40TA PO; PRVHFAIN INH; RANI150T3 PO
[2016-09-21 23:03] VITALS: TEMP 36.5; Ht 162.6 cm; Wt 71.9 kg
--- NOTE | 2016-09-21 23:20 | EMERGENCY ROOM VISIT NOTE ---
History Report prepared by Radha: Gregg Duncan Under the Supervision of: Dr. Gregory Connell D.O. First contact with patient: 23:08 Chief Complaint: URINARY SYMPTOMS Stated Complaint: LEFT FRONT PELVIC AND SIDE PAIN History of Present Illness The patient is a 76 year old female who presents to the Emergency Room with complaints of pressure-like pelvic pain that began 5 hours ago. She rates her current pain a 9/10 in severity. The patient states that her pain began in her back and radiated into her pelvis. She is also having abnormal urinary symptoms. She is having difficulty urinating. She denies any color changes in her urine. She is also feeling very nauseated. She was just placed onto Lasix. She denies any fevers. She has a history of a 50% hiatal hernia and hepatic steatosis. Source of History: patient Onset: 5 hours ago Position: other (Pelvis) Symptom Intensity: 9/10 Quality: pressure Timing: constant Associated Symptoms: + nausea, + urinary symptoms, No fevers Review of Systems See HPI for pertinent positives and negatives. A total of ten systems were reviewed and were otherwise negative. Past Medical & Surgical Medical Problems: (1) Asthma (2) Cirrhosis (3) CKD (chronic kidney disease), stage IV (4) DM type 2 (diabetes mellitus, type 2) (5) Dyslipidemia (6) GERRY (generalized anxiety disorder) (7) GERD (gastroesophageal reflux disease) (8) HTN (hypertension) Surgical Problems: (1) H/O sinus surgery (2) History of hysterectomy (3) Hx of appendectomy (4) S/P cardiac cath (5) S/p rectocele repair Family History Cardiac disorder MOTHER FH: cancer FATHER (lung [place]) Social History Smoking Status: Never Smoker Alcohol Use: none Marital Status: Housing Status: lives with family Occupation Status: retired Current/Historical Medications Scheduled Amlodipine (Norvasc), 5 MG PO DAILY Atorvastatin (Lipitor), 10 MG PO HS Buspirone Hcl (Buspirone Hcl), 10 MG PO TID Colestipol HCl (Colestid), 1 GM PO BID@1000,2200 Fluoxetine (Prozac), 40 MG PO DAILY Fluoxetine (Prozac), 20 MG PO DAILY Lutein (Hm Lutein), 1 TAB PO DAILY Multiple Vitamins W/ Minerals (Icaps), 1 CAP PO DAILY Pantoprazole Sodium (Protonix), 40 MG PO DAILY Ranitidine Hcl (Zantac), 150 MG PO DAILY Scheduled PRN Albuterol (Ventolin Hfa), 2 PUFFS INH Q4 PRN for SOB/Wheezing Dicyclomine HCl (Dicyclomine HCl), 10 MG PO BID PRN for diarrhea Lorazepam (Ativan), 0.5 MG PO HS PRN for Anxiety Ondansetron Hcl (Zofran), 4 MG PO Q6H PRN for Nausea Ondansetron Odt (Zofran Odt), 8 MG SL Q6H PRN for Nausea Allergies Coded Allergies: Erythromycin (Unverified Allergy, Mild, STOMACH PAIN, 09/21/16) Physical Exam Vital Signs Date Time Temp Pulse Resp B/P (MAP) Pulse Ox O2 Delivery O2 Flow Rate FiO2 09/22/16 01:08 90 09/22/16 00:39 93 18 138/78 97 Room Air 09/21/16 23:03 36.5 98 20 138/77 95 Room Air Physical Exam GENERAL: Awake, alert, well-appearing, in no distress HENT: Normocephalic, atraumatic. Oropharynx unremarkable. EYES: Normal conjunctiva. Sclera non-icteric. NECK: Supple. No nuchal rigidity. FROM. No JVD. RESPIRATORY: Clear to auscultation. CARDIAC: Regular rate, normal rhythm. Extremities warm and well perfused. Pulses equal. ABDOMEN: Soft, mildly distended lower quadrant. Tenderness over the bladder to palpation. No rebound or guarding. No masses. RECTAL: Deferred. MUSCULOSKELETAL: Chest examination reveals no tenderness. The back is symmetrical on inspection without obvious abnormality. There is no CVA tenderness to palpation. No joint edema. LOWER EXTREMITIES: Calves are equal size bilaterally and non-tender. No edema. No discoloration. NEURO: Normal sensorium. No sensory or motor deficits noted. SKIN: No rash or jaundice noted. Medical Decision & Procedures ER Provider Diagnostic Interpretation: X ray results as stated below per my interpretation and radiologist interpretation. Other radiology results as stated below per my review and radiologist interpretation CT ABDOMEN & PELVIS: Comparison 09/05/16. Obstructive distal left ureteral stone measuring about 3 mm in size. Nonobstructive left renal stones. Small pleural effusions. Similar-sized small pericardial effusion. Prominent hiatal hernia again noted. Suspected atelectasis. Cirrhotic morphology to liver with evidence of portal hypertension again noted with ascites, splenomegaly and varices. Ascites limits evaluation for localized inflammatory process. Suggest correlation with pancreatic enzymes and other labs. Body wall edema and ascites appear increased compared to the previous. No bowel obstruction. Diverticulosis. Pericolonic fluid is nonspecific given ascites. Cannot completely exclude diverticulitis though not suspected. Portions of bowel appear thick walled. This may be related to under distention and/or liver disease. Correlate for any evidence of enterocolitis. Cholecystectomy, duodenal diverticulum and other unchanged findings. Radiologist: Adam Gavin M.D. Laboratory Results 09/21/16 23:28 Red Blood Count 4.03, Mean Corpuscular Volume 88.6, Mean Corpuscular Hemoglobin 28.5, Mean Corpuscular Hemoglobin Concent 32.2, Mean Platelet Volume 10.4, Neutrophils (%) (Auto) 80.6, Lymphocytes (%) (Auto) 9.8, Monocytes (%) (Auto) 8.5, Eosinophils (%) (Auto) 0.7, Basophils (%) (Auto) 0.2, Neutrophils # (Auto) 10.35, Lymphocytes # (Auto) 1.26, Monocytes # (Auto) 1.09, Eosinophils # (Auto) 0.09, Basophils # (Auto) 0.02 09/21/16 23:28 Test 09/21/16 23:28 09/21/16 23:50 White Blood Count 12.84 K/uL (4.8-10.8) Red Blood Count 4.03 M/uL (4.2-5.4) Hemoglobin 11.5 g/dL (12.0-16.0) Hematocrit 35.7 % (37-47) Mean Corpuscular Volume 88.6 fL (80-100) Mean Corpuscular Hemoglobin 28.5 pg (25-34) Mean Corpuscular Hemoglobin Concent 32.2 g/dl (32-36) Platelet Count 146 K/uL (130-400) Mean Platelet Volume 10.4 fL (7.4-10.4) Neutrophils (%) (Auto) 80.6 % Lymphocytes (%) (Auto) 9.8 % Monocytes (%) (Auto) 8.5 % Eosinophils (%) (Auto) 0.7 % Basophils (%) (Auto) 0.2 % Neutrophils # (Auto) 10.35 K/uL (1.4-6.5) Lymphocytes # (Auto) 1.26 K/uL (1.2-3.4) Monocytes # (Auto) 1.09 K/uL (0.11-0.59) Eosinophils # (Auto) 0.09 K/uL (0-0.5) Basophils # (Auto) 0.02 K/uL (0-0.2) RDW Standard Deviation 61.9 fL (36.4-46.3) RDW Coefficient of Variation 19.1 % (11.5-14.5) Immature Granulocyte % (Auto) 0.2 % Immature Granulocyte # (Auto) 0.03 K/uL (0.00-0.02) Anion Gap 11.0 mmol/L (3-11) Est Creatinine Clear Calc Drug Dose 23.3 ml/min Estimated GFR () 27.4 Estimated GFR (Non- 23.7 BUN/Creatinine Ratio 11.3 (10-20) Calcium Level 8.3 mg/dl (8.5-10.1) Urine Color BROWN Urine Appearance CLOUDY (CLEAR) Urine pH 5.5 (4.5-7.5) Urine Specific [place] 1.025 (1.000-1.030) Urine Protein 1+ (NEG) Urine Glucose (UA) NEG (NEG) Urine Ketones NEG (NEG) Urine Occult Blood 3+ (NEG) Urine Nitrite NEG (NEG) Urine Bilirubin NEG (NEG) Urine Urobilinogen NEG (NEG) Urine Leukocyte Esterase NEG (NEG) Urine RBC >30 /hpf (0-4) Urine WBC 1-5 /hpf (0-5) Urine Epithelial Cells >30 /lpf (0-5) Urine Bacteria NEG (NEG) Urine Hyaline Casts 10-30 /lpf (0-5) Laboratory results reviewed by me Medications Administered Medications (Trade) Dose Ordered Sig/Edilson Route Start Time Stop Time Status Last Admin Dose Admin Ondansetron HCl (Zofran Inj) 4 mg NOW STAT IV 09/22/16 01:26 09/22/16 01:27 DC 09/22/16 01:33 4 MG Morphine Sulfate (MoRPHine SULFATE INJ) 4 mg NOW STAT IV 09/22/16 01:26 09/22/16 01:27 DC 09/22/16 01:33 4 MG Tamsulosin HCl (Flomax Cap) 0.4 mg NOW ONCE PO 09/22/16 01:30 09/22/16 01:31 DC 09/22/16 01:33 0.4 MG ED Course 2308: The patient was evaluated in room A2. A complete history and physical exam was performed. 0126: Ordered Morphine Sulfate 4 mg IV, Zofran Inj 4 mg IV 0130: Ordered Flomax Cap 0.4 mg PO 0140: I reevaluated the patient. She is in no distress. Discussed results and discharge instructions: She and her family verbalized understanding and agreement. The patient is ready for discharge. Medical Decision Differential diagnoses include but are not limited to; kidney stone, UTI, pyelonephritis, urinary retention, and renal insufficiency. Medication Reconciliation: I attest that I have personally reviewed the patient' s current medication list. Blood pressure screening: Patient was found to have normal blood pressure on screening and does not require follow-up. Patient resting on reexamination no distress. I discussed the workup with the patient and the patient's family at bedside. Patient has a 3 mm stone without any evidence of infection at this time. Patient has a baseline creatinine around 2. Patient was given IV pain medicine as well as nausea medicine. Patient will be referred to urology for follow-up Impression Primary Impression: Ureterolithiasis Scribe Attestation The scribe's documentation has been prepared under my direction and personally reviewed by me in its entirety. I confirm that the note above accurately reflects all work, treatment, procedures, and medical decision making performed by me. Departure Information Dispostion Home / Self-Care Prescriptions Tamsulosin Hcl (FLOMAX) 0.4 Mg Cap 0.4 MG PO DAILY, #10 CAP Prov: Gregory Connell, DO 09/22/16 Hydrocodone/Acetaminophen 5MG/325MG ([place] 5MG/325MG) Tab 1 TABLET PO Q6H Y for Pain, #14 TAB Prov: Gregory Connell, DO 09/22/16 Ondasetron Odt (ZOFRAN ODT) 4 Mg Tab 4 MG SL Q6H for Nausea, #6 TAB Prov: Gregory Connell, DO 09/22/16 Referrals Marisol Sepulveda M.D. (PCP) Edmar Jasso M.D. Forms HOME CARE DOCUMENTATION FORM, IMPORTANT VISIT INFORMATION Patient Instructions Kidney Stones - [facility], [facility]
[2016-09-21 23:40] LABS: BASO % 0.2 %; BASO ABS # 0.02 K/uL (0-0.2); COMPLETE YES; EOS % 0.7 %; HEMATOCRIT 35.7 % (37-47); IG% 0.2 %; LYMPH % 9.8 %; LYMPH ABS # 1.26 K/uL (1.2-3.4); MEAN CELL VOLUME 88.6 fL (80-100); MEAN CORPUSCULAR HEMOGLOBIN 28.5 pg (25-34); MEAN CORPUSCULAR HGB CONC 32.2 g/dl (32-36); MEAN PLATELET VOLUME 10.4 fL (7.4-10.4); MONO % 8.5 %; NEUT % 80.6 %; PLATELET COUNT 146 K/uL (130-400); RED BLOOD COUNT 4.03 M/uL (4.2-5.4); WHITE BLOOD COUNT 12.84 K/uL (4.8-10.8)
[2016-09-22 00:12] LABS: MANUAL MICROSCOPIC REQUIRED? YES; URINE APPEARANCE CLOUDY (CLEAR); URINE BILIRUBIN NEG (NEG); URINE COLOR BROWN; URINE NITRITE NEG (NEG); URINE PH 5.5 (4.5-7.5); URINE SPECIFIC GRAVITY 1.025 (1.000-1.030); UROBILINOGEN NEG (NEG)
[2016-09-22 00:13] LABS: REVIEW REQ? NO
[2016-09-22 00:14] LABS: URINE RBC >30 /hpf (0-4)
[2016-09-22 00:16] LABS: BUN/CREATININE RATIO 11.3 (10-20); CALCIUM 8.3 mg/dl (8.5-10.1); POTASSIUM 3.7 mmol/L (3.5-5.1)
[2016-09-22 00:16] LABS: URINE BACTERIA NEG (NEG)
[2016-09-22 00:20] LABS: ZZUR CULT IF INDIC CLEAN CATCH NO
[2016-09-22] MEDS ORDERED: MoRPHine SULFATE 4 MG/ML 1 ML CARP\\VIAL IV STA (01:26)
[2016-09-22] MEDS ORDERED: ONDANSETRON INJ 2 MG/ML 2 ML VIAL IV STA (01:26)
[2016-09-22] MEDS ORDERED: TAMSULOSIN HCL 0.4 MG CAP PO ONE (01:30)
[2016-09-22] MEDS ORDERED: ONDANSETRON HOME PACK 4MG OD TAB PO ONE (01:45)
[2016-09-22] MEDS ORDERED: NORCO 5/325MG HOME PACK PO ONE (01:45)
[2016-09-22] MEDS ORDERED: ONDA4TAB10 SL (01:51)
[2016-09-22] MEDS ORDERED: TAMS0.4C38 PO (01:51)
[2016-09-22] MEDS ORDERED: HYDR-5688 PO (01:51)
[2016-09-22 02:00] VITALS: BP 137/75; PULSE 94; O2SAT 96
--- NOTE | 2016-09-22 07:46 | DIAGNOSTIC IMAGING REPORT ---
CT OF THE ABDOMEN AND PELVIS WITHOUT CONTRAST, STONE PROTOCOL CLINICAL HISTORY: Left flank pain. COMPARISON STUDY: CT of the abdomen and pelvis September 05, 2016. TECHNIQUE: Helical axial images of the abdomen and pelvis were obtained without IV or oral contrast according to renal stone protocol. FINDINGS: A small right pleural effusion is noted with a trace left pleural effusion. A large lateral hernia with intrathoracic stomach is partially imaged. There is ascites within the hernia sac. The liver is cirrhotic. Liver is suboptimally assessed on this unenhanced exam but no hepatic lesions are identified on this exam. Moderate splenomegaly and extensive varices are noted. Small to moderate abdominal and pelvic ascites is noted. There is no evidence for a bowel obstruction. Malrotation of the right kidney is noted. There is moderate right renal atrophy. A 3 mm distal left ureteral calculus results in mild left hydroureteronephrosis. There are several additional left renal calculi that measure up to 4 mm. No suspicious osseous lesions are present. There is no pneumatosis, free air or portal venous gas. Submucosal fat deposition within the colon is a chronic finding. IMPRESSION: 1. 3 mm distal left ureteral calculus with mild left hydroureteronephrosis. 2. Left-sided nephrolithiasis. 3. Cirrhosis with manifestations of portal hypertension including splenomegaly, varices and small to moderate ascites. 4. Small right and trace left pleural effusions. 5. Large hiatal hernia with partially intrathoracic stomach which is partially imaged on this exam. 6. Colonic diverticulosis. Electronically signed by: Gabriel Vieyra M.D. 09/22/2016 7:44 AM Dictated Date/Time: 09/22/2016 7:37 AM
[2016-10-29] MEDS ORDERED: POTTAB2 PO (11:34)
[2016-10-29] MEDS ORDERED: PRMT25 PO (11:34)
[2016-10-29] MEDS ORDERED: QSTP PO (11:34)
[2016-12-11] MEDS ORDERED: PRMT10 PO (12:18)
[2016-12-11] MEDS ORDERED: AFRIN (12:18)
[2016-12-11] MEDS ORDERED: BUSP-8 PO (12:18)
[2016-12-11] MEDS ORDERED: NUTR-7 PO (12:18)
[2016-12-11] MEDS ORDERED: RMR15 PO (12:18)
[2016-12-11] MEDS ORDERED: BENZ100C7 PO (12:18)
[2016-12-11] MEDS ORDERED: ATV5 PO (12:18)
[2016-12-11] MEDS ORDERED: OXYC-57 PO (12:18)
[2016-12-11] MEDS ORDERED: POLY335019 PO (12:19)
== END 2016-09-22 02:02 | disposition home or self-care (01) ==
LOC: C.EDB 23:00 → C.EDA 09-22 02:02
DX: N20.1 Calculus of ureter (principal); K74.60 Unspecified cirrhosis of liver; J45.909 Unspecified asthma, uncomplicated; I12.9 Hypertensive chronic kidney disease with stage 1 through stage 4 chronic kidney disease, or unspecified chronic kidney disease; E11.22 Type 2 diabetes mellitus with diabetic chronic kidney disease; N18.4 Chronic kidney disease, stage 4 (severe); E78.5 Hyperlipidemia, unspecified; F41.1 Generalized anxiety disorder; Z90.89 Acquired absence of other organs; Z90.710 Acquired absence of both cervix and uterus; Z98.890 Other specified postprocedural states; Z80.1 Family history of malignant neoplasm of trachea, bronchus and lung; Z79.899 Other long term (current) drug therapy

== ENCOUNTER 2016-10-18 16:55 | Emergency (ER) | payer OTHER ==
[~2016-10-18] VITALS: Ht 152.4 cm; Wt 68.0 kg
[~2016-10-18 16:55] MED LIST changes: -ATOR10TA82 PO; +ATOR10TA88 PO; +HYDR-5688 PO; +ONDA4TAB10 SL; -ONDA8TAB62 SL; -PANT40TA PO
[2016-10-18 17:01] VITALS: TEMP 36.7; Ht 152.4 cm; Wt 68.0 kg
[2016-10-18] MEDS ORDERED: SODIUM CHLORIDE 0.9% 1000ML 1,000 ML IV STA (17:12)
--- NOTE | 2016-10-18 17:18 | EMERGENCY ROOM VISIT NOTE ---
History Report prepared by Radha: Jeannette Iyer Under the Supervision of: Dr. Steve King M.D. First contact with patient: 17:05 Chief Complaint: REFERRED BY DOCTOR Stated Complaint: DEHYDRATION- PHYSICIAN REFERRED History of Present Illness The patient is a 76 year old female who presents to the Emergency Room with complaints of dehydration beginning today. The patient also reports feeling weak and nauseous this morning. The patient states that she went from taking 20 mg to 40 mg of Lasix beginning 1 week ago. She reports that she went to the doctor's office today and had blood work done that showed kidney failure and was referred to the emergency department. She states that she had a kidney stone that passed last month and also has a scarred liver. The patient denies fevers, vomiting, syncope, abdominal pain, and urinary symptoms. Source of History: patient Onset: today Position: other (global) Quality: other (dehydration ) Associated Symptoms: + nausea, + weakness, No fevers, No vomiting, No abdominal pain, No urinary symptoms Note: also denies: syncope Review of Systems See HPI for pertinent positives & negatives. A total of 10 systems reviewed and were otherwise negative. Past Medical & Surgical Medical Problems: (1) Asthma (2) Cirrhosis (3) CKD (chronic kidney disease), stage IV (4) DM type 2 (diabetes mellitus, type 2) (5) Dyslipidemia (6) GERRY (generalized anxiety disorder) (7) GERD (gastroesophageal reflux disease) (8) HTN (hypertension) Surgical Problems: (1) H/O sinus surgery (2) History of hysterectomy (3) Hx of appendectomy (4) S/P cardiac cath (5) S/p rectocele repair Family History Cardiac disorder MOTHER FH: cancer FATHER (lung [place]) Social History Smoking Status: Never Smoker Alcohol Use: none Marital Status: Housing Status: lives with family Occupation Status: retired Current/Historical Medications Scheduled Amlodipine (Norvasc), 5 MG PO DAILY Atorvastatin (Lipitor), 10 MG PO HS Buspirone Hcl (Buspirone Hcl), 10 MG PO TID Fluoxetine (Prozac), 40 MG PO DAILY Fluoxetine (Prozac), 20 MG PO DAILY Lutein (Hm Lutein), 1 TAB PO DAILY Multiple Vitamins W/ Minerals (Icaps), 1 CAP PO DAILY Ranitidine Hcl (Zantac), 150 MG PO DAILY Scheduled PRN Albuterol (Ventolin Hfa), 2 PUFFS INH Q4 PRN for SOB/Wheezing Dicyclomine HCl (Dicyclomine HCl), 10 MG PO BID PRN for diarrhea Hydrocodone/Acetaminophen 5MG/325MG ([place] 5MG/325MG), 1 TABLET PO Q6H PRN for Pain Ondansetron Hcl (Zofran), 4 MG PO Q6H PRN for Nausea Allergies Coded Allergies: Erythromycin (Unverified Allergy, Mild, STOMACH PAIN, 10/18/16) Butorphanol (Unverified Allergy, Unknown, LOOPY, 10/18/16) Physical Exam Vital Signs Date Time Temp Pulse Resp B/P (MAP) Pulse Ox O2 Delivery O2 Flow Rate FiO2 10/18/16 21:00 89 20 124/68 94 Room Air 10/18/16 19:00 95 20 141/62 93 Room Air 10/18/16 17:01 36.7 98 18 132/68 94 Room Air Physical Exam GENERAL: Patient is tired appearing and in no acute distress. HEENT: No acute trauma, normocephalic atraumatic, mucous membranes moist, no nasal congestion, no scleral icterus. NECK: No stridor, no adenopathy, no meningismus, trachea is midline. LUNGS: No dyspnea. Clear to auscultation and equal bilaterally. No wheeze, no rhonchi. HEART: Regular rate and rhythm. No murmurs, rubs, gallops appreciated. ABDOMEN: Soft, nontender, bowel sounds positive, no masses appreciated, no peritonitis. BACK: No midline tenderness, no CVA tenderness EXTREMITIES: Normal motion all extremities, no cyanosis. Bilateral lower leg edema left greater than right. NEUROLOGIC: Alert and oriented, no acute motor or sensory deficits, no focal weakness, cranial nerves grossly intact. SKIN: No rash, no jaundice, no diaphoresis. Medical Decision & Procedures Laboratory Results 10/18/16 17:35 Red Blood Count 3.92, Mean Corpuscular Volume 89.8, Mean Corpuscular Hemoglobin 28.8, Mean Corpuscular Hemoglobin Concent 32.1, Mean Platelet Volume 10.5, Neutrophils (%) (Auto) 78.7, Lymphocytes (%) (Auto) 9.8, Monocytes (%) (Auto) 10.6, Eosinophils (%) (Auto) 0.6, Basophils (%) (Auto) 0.1, Neutrophils # (Auto ) 10.92, Lymphocytes # (Auto) 1.36, Monocytes # (Auto) 1.47, Eosinophils # (Auto ) 0.09, Basophils # (Auto) 0.02 10/18/16 17:35 Test 10/18/16 17:35 10/18/16 18:00 White Blood Count 13.89 K/uL (4.8-10.8) Red Blood Count 3.92 M/uL (4.2-5.4) Hemoglobin 11.3 g/dL (12.0-16.0) Hematocrit 35.2 % (37-47) Mean Corpuscular Volume 89.8 fL (80-100) Mean Corpuscular Hemoglobin 28.8 pg (25-34) Mean Corpuscular Hemoglobin Concent 32.1 g/dl (32-36) Platelet Count 142 K/uL (130-400) Mean Platelet Volume 10.5 fL (7.4-10.4) Neutrophils (%) (Auto) 78.7 % Lymphocytes (%) (Auto) 9.8 % Monocytes (%) (Auto) 10.6 % Eosinophils (%) (Auto) 0.6 % Basophils (%) (Auto) 0.1 % Neutrophils # (Auto) 10.92 K/uL (1.4-6.5) Lymphocytes # (Auto) 1.36 K/uL (1.2-3.4) Monocytes # (Auto) 1.47 K/uL (0.11-0.59) Eosinophils # (Auto) 0.09 K/uL (0-0.5) Basophils # (Auto) 0.02 K/uL (0-0.2) RDW Standard Deviation 65.7 fL (36.4-46.3) RDW Coefficient of Variation 20.2 % (11.5-14.5) Immature Granulocyte % (Auto) 0.2 % Immature Granulocyte # (Auto) 0.03 K/uL (0.00-0.02) Neutrophils % (Manual) 87.8 % Lymphocytes % (Manual) 8.7 % Monocytes % (Manual) 2.6 % Eosinophils % (Manual) 0.9 % Neutrophils # (Manual) 12.20 K/uL (1.4-6.5) Total Absolute Neutrophils 12.20 K/uL (1.4-6.5) Lymphocytes # (Manual) 1.21 K/uL (1.2-3.4) Total Absolute Lymphocytes 1.21 K/uL (1.2-3.4) Monocytes # (Manual) 0.36 K/uL (0.11-0.59) Eosinophils # (Manual) 0.13 K/uL (0-0.5) Toxic Granulation 1+ Anisocytosis PRESENT Anion Gap 9.0 mmol/L (3-11) Est Creatinine Clear Calc Drug Dose 15.8 ml/min Estimated GFR () 20.0 Estimated GFR (Non- 17.2 BUN/Creatinine Ratio 14.0 (10-20) Calcium Level 8.8 mg/dl (8.5-10.1) Phosphorus Level 2.5 mg/dl (2.5-4.9) Magnesium Level 2.1 mg/dl (1.8-2.4) Total Bilirubin 1.0 mg/dl (0.2-1) Direct Bilirubin 0.5 mg/dl (0-0.2) Aspartate Amino Transf (AST/SGOT) 106 U/L (15-37) Alanine Aminotransferase (ALT/SGPT) 46 U/L (12-78) Alkaline Phosphatase 219 U/L (45-117) Troponin I 0.029 ng/ml (0-0.045) Total Protein 7.1 gm/dl (6.4-8.2) Albumin 2.2 gm/dl (3.4-5.0) Lipase 187 U/L (73-393) Urine Color DK YELLOW Urine Appearance CLOUDY (CLEAR) Urine pH 5.0 (4.5-7.5) Urine Specific [place] 1.021 (1.000-1.030) Urine Protein NEG (NEG) Urine Glucose (UA) NEG (NEG) Urine Ketones NEG (NEG) Urine Occult Blood NEG (NEG) Urine Nitrite NEG (NEG) Urine Bilirubin NEG (NEG) Urine Urobilinogen NEG (NEG) Urine Leukocyte Esterase NEG (NEG) Urine WBC (Auto) 1-5 /hpf (0-5) Urine RBC (Auto) 0-4 /hpf (0-4) Urine Hyaline Casts (Auto) 10-30 /lpf (0-5) Urine Epithelial Cells (Auto) >30 /lpf (0-5) Urine Bacteria (Auto) NEG (NEG) Urine Pathogenic Casts /lpf (0) Laboratory results as reviewed by me. Medications Administered Medications (Trade) Dose Ordered Sig/Edilson Route Start Time Stop Time Status Last Admin Dose Admin Sodium Chloride 1,000 ml @ 75 mls/hr [id number] STAT IV 10/18/16 17:12 10/18/16 21:51 DC 10/18/16 18:07 75 MLS/HR Sodium Chloride 500 ml @ 999 mls/hr Q31M STAT IV 10/18/16 19:43 10/18/16 20:13 DC 10/18/16 20:05 999 MLS/HR ECG Indication: weakness Rate (beats per minute): 93 Rhythm: normal sinus Findings: no acute ischemic change, no ectopy ED Course 1705: The patient was evaluated in room B3. A complete history and physical exam was performed. 1711: Ordered Sodium Chloride 1,000 ml @ 75 mls/hr IV. 0: Discussed the patient's case with Dr. Sanderson. The patient will be evaluated for further treatment and disposition. 0: The patient states that she would be comfortable going home so we re- paged Marnie. 1942: Ordered Sodium Chloride 500 ml @ 999 mls/hr IV. 1999: Discussed the patient's case with Dr. Mcdonald and he said to give her 500 bolus of fluid. 2031:The patient states that she would feel comfortable going home. She will be given 500 ml of fluid and will follow up with a clinic tomorrow for repeat labs. 2039: Reevaluated the patient. Discussed results and discharge instructions: She verbalized understanding and agreement. The patient is ready for discharge. Medical Decision Differential: Sepsis, Infectious (UTI/Pneumonia/Meningitis/etc), Metabolic/ Electrolyte Abnormality, Cardiac, Hepatic, Endocrine, Toxicologic, Neurologic, amongst other pathologies entertained. Blood pressure screening: Patient was found to have a mildly elevated blood pressure and will be evaluated by the hospitalist. Medication Reconciliation: I attest that I have personally reviewed the patient 's current medication list. 76 yr old female sent over by clinic for evaluation of elevated Cr. Double dose lasix over last week with some diarrhea. Cr 2.6, which is up from 2 previously. She is dehydrated but not in overt failure. Some leg swelling which is improved and chronic. She is feeling vastly better after some fluids. Reviewed with Hospitalist and they feel outpatient monitoring reasonable and I think that is OK. Patient agreeable and very much prefers to go home and will contact outpatient office in morning. Reviewed symptoms requiring return and she understands. Consults Time Called: [id number] Consulting Physician: Dr. Sanderson Returned Call: [phone] Discussed the patient's case. The patient will be evaluated for further treatment and disposition. Additional Consults: Time Called: 1949 Consulted Physician: Dr. Mcdonald Returned Call: [phone] Additional Comments: Discussed the patient's case. The patient will be evaluated for further treatment and disposition. Impression Primary Impression: Acute on chronic renal insufficiency Additional Impression: Dehydration Scribe Attestation The scribe's documentation has been prepared under my direction and personally reviewed by me in its entirety. I confirm that the note above accurately reflects all work, treatment, procedures, and medical decision making performed by me. Departure Information Dispostion Home / Self-Care Referrals Marisol Sepulveda M.D. (PCP) Patient Instructions [facility] Additional Instructions Do not take your Lasix tomorrow morning. The next day start back on your normal 20mg Lasix dose. Follow up with your Primary Provider or Iron Installer tomorrow morning to discuss having repeat labs. Return if fevers, vomiting, passing out, weakness or other concerns. We are always here to help. If you develop shortness of breath return for further evaluation. Problem Qualifiers
[2016-10-18 18:16] LABS: BASO % 0.1 %; BASO ABS # 0.02 K/uL (0-0.2); EOS % 0.6 %; HEMATOCRIT 35.2 % (37-47); IG% 0.2 %; LYMPH % 9.8 %; LYMPH ABS # 1.36 K/uL (1.2-3.4); MEAN CELL VOLUME 89.8 fL (80-100); MEAN CORPUSCULAR HEMOGLOBIN 28.8 pg (25-34); MEAN CORPUSCULAR HGB CONC 32.1 g/dl (32-36); MEAN PLATELET VOLUME 10.5 fL (7.4-10.4); MONO % 10.6 %; NEUT % 78.7 %; PLATELET COUNT 142 K/uL (130-400); RED BLOOD COUNT 3.92 M/uL (4.2-5.4); WHITE BLOOD COUNT 13.89 K/uL (4.8-10.8)
[2016-10-18 18:34] LABS: CALCIUM 8.8 mg/dl (8.5-10.1); CREATININE 2.6 mg/dl (0.60-1.20); MAGNESIUM 2.1 mg/dl (1.8-2.4); POTASSIUM 4.2 mmol/L (3.5-5.1)
[2016-10-18 18:37] LABS: PHOSPHORUS 2.5 mg/dl (2.5-4.9)
[2016-10-18 18:39] LABS: URINE APPEARANCE CLOUDY (CLEAR); URINE BILIRUBIN NEG (NEG); URINE COLOR DK YELLOW; URINE EPITHELIAL CELL AUTO >30 /lpf (0-5); URINE NITRITE NEG (NEG); URINE SPECIFIC GRAVITY 1.021 (1.000-1.030); UROBILINOGEN NEG (NEG); ZZUR CULT IF INDIC CLEAN CATCH NO
[2016-10-18 18:41] LABS: MANUAL MICROSCOPIC REQUIRED? NO; REVIEW REQ? YES
[2016-10-18 18:42] LABS: ANISOCYTOSIS PRESENT; COMPLETE YES; EOSINOPHIL % 0.9 %; LYMPH ABS # 1.21 K/uL (1.2-3.4); LYMPHOCYTE % 8.7 %; NEUTROPHILS % 87.8 %; TOXIC GRANULATION 1+
[2016-10-18] MEDS ORDERED: SODIUM CHLORIDE 0.9% 500ML 500 ML IV STA (19:43)
[2016-10-18 21:00] VITALS: BP 124/68; PULSE 89; O2SAT 94
[2016-10-29] MEDS ORDERED: PRMT25 PO (11:34)
[2016-10-29] MEDS ORDERED: QSTP PO (11:34)
[2016-10-29] MEDS ORDERED: POTTAB2 PO (11:34)
[2016-12-11] MEDS ORDERED: ATV5 PO (12:18)
[2016-12-11] MEDS ORDERED: RMR15 PO (12:18)
[2016-12-11] MEDS ORDERED: BENZ100C7 PO (12:18)
[2016-12-11] MEDS ORDERED: AFRIN (12:18)
[2016-12-11] MEDS ORDERED: NUTR-7 PO (12:18)
[2016-12-11] MEDS ORDERED: BUSP-8 PO (12:18)
[2016-12-11] MEDS ORDERED: OXYC-57 PO (12:18)
[2016-12-11] MEDS ORDERED: PRMT10 PO (12:18)
[2016-12-11] MEDS ORDERED: POLY335019 PO (12:19)
== END 2016-10-18 21:22 | disposition home or self-care (01) ==
LOC: C.EDB 16:56
DX: E86.0 Dehydration (principal); Z87.442 Personal history of urinary calculi; J45.909 Unspecified asthma, uncomplicated; K74.60 Unspecified cirrhosis of liver; N18.4 Chronic kidney disease, stage 4 (severe); E11.9 Type 2 diabetes mellitus without complications; E78.5 Hyperlipidemia, unspecified; F41.1 Generalized anxiety disorder; K21.9 Gastro-esophageal reflux disease without esophagitis; I12.9 Hypertensive chronic kidney disease with stage 1 through stage 4 chronic kidney disease, or unspecified chronic kidney disease; Z90.710 Acquired absence of both cervix and uterus; Z80.9 Family history of malignant neoplasm, unspecified; Z79.899 Other long term (current) drug therapy

== ENCOUNTER 2016-10-23 11:32 | Inpatient (IN) | payer OTHER ==
[~2016-10-23] VITALS: Ht 162.6 cm; Wt 69.5 kg
[~2016-10-23 11:32] MED LIST changes: -CLS1 PO; -LORA-741 PO; -ONDA4TAB10 SL
[2016-10-23] MEDS ORDERED: LOPE1TAB25 PO (11:51)
[2016-10-23] MEDS ORDERED: RANI150T3 PO (11:51)
[2016-10-23] MEDS ORDERED: FURO-85 PO (11:51)
--- NOTE | 2016-10-23 12:47 | DIAGNOSTIC IMAGING REPORT ---
SINGLE VIEW CHEST CLINICAL HISTORY: Dyspnea. FINDINGS: An AP, portable, upright chest radiograph is correlated with chest CT dated 09/05/2016. The examination is degraded by portable technique, apical positioning, and patient rotation. The heart is top normal for projection. A large hiatal hernia is identified. There is a left pleural effusion with left basilar consolidation. The right lung appears clear. No pneumothorax is seen. The skeletal structures are osteopenic. The bony thorax is grossly intact. IMPRESSION: 1. There is a left pleural effusion with left basilar consolidation which likely represents atelectasis. Clinical correlation will be required. This is similar to the 09/05/2016 CT scan. 2. Hiatal hernia. Electronically signed by: Ty Montano M.D. 10/23/2016 12:45 PM Dictated Date/Time: 10/23/2016 12:41 PM
[2016-10-23 12:51] LABS: BASO % 0.1 %; BASO ABS # 0.02 K/uL (0-0.2); EOS % 0.4 %; HEMATOCRIT 33.9 % (37-47); IG% 0.3 %; LYMPH % 9.6 %; LYMPH ABS # 1.34 K/uL (1.2-3.4); MEAN CELL VOLUME 87.4 fL (80-100); MEAN CORPUSCULAR HEMOGLOBIN 28.9 pg (25-34); MEAN PLATELET VOLUME 11.4 fL (7.4-10.4); MONO % 8.6 %; PLATELET COUNT 166 K/uL (130-400); RED BLOOD COUNT 3.88 M/uL (4.2-5.4); WHITE BLOOD COUNT 13.91 K/uL (4.8-10.8)
[2016-10-23 13:03] LABS: INR 1.3 (0.9-1.1); PARTIAL THROMBOPLASTIN RATIO 1.1; PROTHROMBIN TIME (PATIENT) 13.7 SECONDS (9.0-12.0)
[2016-10-23 13:12] LABS: URINE APPEARANCE CLOUDY (CLEAR); URINE BILIRUBIN NEG (NEG); URINE COLOR DK YELLOW; URINE EPITHELIAL CELL AUTO >30 /lpf (0-5); URINE NITRITE NEG (NEG); UROBILINOGEN NEG (NEG)
[2016-10-23 13:13] LABS: ANISOCYTOSIS PRESENT; COMPLETE YES
[2016-10-23 13:26] LABS: MANUAL MICROSCOPIC REQUIRED? NO; REVIEW REQ? NO
[2016-10-23 13:30] LABS: BUN/CREATININE RATIO 14.6 (10-20); CALCIUM 8.6 mg/dl (8.5-10.1); CREATININE 2.7 mg/dl (0.60-1.20); POTASSIUM 4.3 mmol/L (3.5-5.1)
[2016-10-23 13:35] LABS: ALB/GLOB RATIO 0.5 (0.9-2)
--- NOTE | 2016-10-23 14:27 | DIAGNOSTIC IMAGING REPORT ---
CT SCAN OF THE ABDOMEN AND PELVIS WITHOUT CONTRAST CLINICAL HISTORY: Abdominal pain. Nausea. COMPARISON STUDY: 09/22/2016 TECHNIQUE: CT scan of the abdomen and pelvis was performed from the lung bases to the proximal femurs. Images are reviewed in the axial, sagittal, and coronal planes. IV contrast was not administered for this examination. CT DOSE: 405.61 mGy.cm FINDINGS: Lower chest: There is a moderate hiatal hernia. There is an increasing moderate right pleural effusion. Liver: The liver has a cirrhotic morphology. No masses are visualized in this noncontrast study. Gallbladder: Surgically absent Spleen: There is mild splenomegaly Pancreas: Unremarkable. Adrenal glands: Unremarkable. Kidneys: There are punctate nonobstructing left renal calculi. There is no hydronephrosis.. 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 No ureteral or bladder calculi are visualized. Bowel: There are no transition zones indicate bowel obstruction. There is subserosal fatty hypertrophy of the colon. By history the appendix is absent. There is no acute diverticulitis. Peritoneum: There is moderate ascites similar to the preceding study. Vasculature: There is no evidence of abdominal aortic aneurysm. Upper abdominal varices remain stable Adenopathy: None. Pelvic viscera: The uterus appears surgically absent Skeletal structures: No destructive osseous lesions are seen. IMPRESSION: 1. Interval passage of the previously identified 3 mm distal left ureteral calculus 2. Punctate nonobstructing left renal calculi 3. No evidence of bowel obstruction. No evidence of free air 4. Increasing moderate right pleural effusion 5. Stable moderate ascites 6. Cirrhotic morphology of the liver. Upper abdominal varices. 7. Large hiatal hernia Electronically signed by: Shayan Bhatt M.D. 10/23/2016 2:25 PM Dictated Date/Time: 10/23/2016 2:17 PM
[2016-10-23] MEDS ORDERED: SODIUM CHLORIDE 0.9% 500ML 500 ML IV STA ×2 (14:38→14:48)
[2016-10-23] MEDS ORDERED: ONDANSETRON INJ 2 MG/ML 2 ML VIAL ONE (15:04)
[2016-10-23] MEDS ORDERED: ACETAMINOPHEN 325 MG TAB PO PRN (15:45)
[2016-10-23] MEDS ORDERED: LOPERAMIDE HCL 2 MG CAP PO PRN (15:45)
[2016-10-23] MEDS ORDERED: PANT40TA PO (15:58)
[2016-10-23] MEDS ORDERED: AMLO2.5T PO (15:58)
[2016-10-23] MEDS ORDERED: FLVHFA110 INH (15:58)
--- NOTE | 2016-10-23 16:04 | Gastrointestinal Consultation ---
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 She was referred to ED by myself last week when her Cr was noted to be increased from 1.8 to 2.5 after her Lasix dose was increased from 20mg to 40mg daily for better ascites/leg edema control. She was treated then w 2L NS bolus, then discharged home. Repeat BMP last Saturday showed Cr increased to 2.7. I had contacted her yesterday to discuss possible admission, though she would like to avoid this but agreeable to repeat labs today and if Cr not improved she is open to hospital admission. Also had discussed about possibly setting her up for paracentesis given her recent outpt u/s showed mod ascites but she refused this as well. She called me this morning stating that she is going to ED due to SOB. Pt's hemodynamically stable. Labs showed mild leukocytosis WBC, anemia (chronic , same as baseline) H/H , INR 1.3, BUN 39, Cr 2.7, Tbili 1.5, AST 108, ALT 40, AP 122. CXR & CT abd/pelvis showed pleural effusions, mod ascites, large hiatal hernia, no bowel obstruction. Pt reports having nausea, vomiting, diarrhea somewhat returning though yesterday seems to be slowed down. She was having good control of the diarrhea on Colestipol and Imodium previously. She denies any abd pain but does feel abd pressure. Denies fever, chills. - EGD on 09/07/[address] Varela Grade II esophageal varices, banded, GAVE, no portal HTN. Repeat EGD on 11/30/16 for variceal banding. She's not a good candidate for beta destini per Dr. Varela. Given varices, her hiatal hernia surgery was also deferred. Previously seen by Dr. Mcdermott. Past Medical/Surgical History Medical Problems: (1) Acute on chronic renal insufficiency Status: Acute (2) Epigastric abdominal pain Status: Acute (3) Hiatal hernia Status: Acute (4) Nausea Status: Acute (5) Ureterolithiasis Status: Acute Past Medical History: Asthma, severity to be determined Benign essential hypertension with target blood pressure below 140/90 Dyslipidemia, goal LDL below 100 Hiatal hernia bulk of stomach above diaphragm Other anxiety states Past Surgical History: COLONOSCOPY 1993 clfd COLONOSCOPY 08/11/2007 internal hemorrhoids; Dr. Freitas CYSTOSCOPY 2004 [facility] EXPLORATION OF MAXILLARY SINUS 2000 Sinus Surgery,and deviated septum MAMMOGRAM, SCREENING, BILAT 03/04/12 fibroglandular densities, simple cyst left breast OTHER 1997 cardiac cath. REPAIR RECTOCELE 1994 Dr. Batista along with hysterectomy TOTAL ABD HYSTERECTOMY W/WO REMOVAL OF TUBE(S) 1994 clfd Family History Cardiac disorder MOTHER FH: cancer FATHER (lung CA) Social History Smoking Status: Never Smoker Alcohol Use: none Drug Use: none Marital Status: Housing Status: lives with family Occupation Status: retired Allergies Coded Allergies: Erythromycin (Unverified Allergy, Mild, STOMACH PAIN, 10/23/16) Butorphanol (Unverified Allergy, Unknown, LOOPY, 10/23/16) Current Medications Home Meds and Scripts Medications Dose Route/Sig Max Daily Dose Days Date Category Dose Instructions Lasix (Furosemide) 20 Mg Tab 20 Mg PO DAILY 10/23/16 Reported Zantac (Ranitidine HCl) 150 Mg Tab 150 Mg PO BID 10/23/16 Reported Loperamide Hcl 2 Mg Tab 2 Mg PO UD PRN 10/23/16 Reported Ventolin Hfa (Albuterol) 60 Puffs/5400 Mcg Aers 2 Puffs INH Q4 PRN 09/05/16 Reported Icaps (Multiple Vitamins W/ Minerals) 1 Cap Cap 1 Cap PO DAILY 09/05/16 Reported Hm Lutein (Lutein) 20 Mg Cap 20 Mg PO DAILY 09/05/16 Reported Norvasc (Amlodipine Besylate) 5 Mg Tab 5 Mg PO HS 09/05/16 Reported Prozac (Fluoxetine HCl) 20 Mg Cap 20 Mg PO DAILY 09/05/16 Reported WITH 40MG CAPS Lipitor (Atorvastatin Calcium) 10 Mg Tab 10 Mg PO HS 09/05/16 Reported Buspirone Hcl 10 Mg Tab 10 Mg PO TID 09/05/16 Reported Prozac (Fluoxetine HCl) 40 Mg Cap 40 Mg PO DAILY 09/05/16 Reported WITH 20MG CAPS Zofran (Ondansetron HCl) 4 Mg Tab 4 Mg PO Q6H PRN 5/24/17 Reported Review of Systems Constitutional: No fever, No chills Respiratory: + shortness of breath, + dyspnea on exertion, No cough Cardiac: No chest pain Abdomen: + nausea, + vomiting, + diarrhea, No pain, No GI bleeding Endo: + fatigue Skin: No rash, No itch, No jaundice Physical Exam Date Time Temp Pulse Resp B/P (MAP) Pulse Ox O2 Delivery O2 Flow Rate FiO2 10/23/16 14:31 91 20 128/66 97 Room Air 10/23/16 13:00 88 20 161/87 98 Room Air 10/23/16 12:39 97 Room Air 10/23/16 12:33 88 10/23/16 12:32 97 Room Air 10/23/16 11:40 36.6 97 18 134/60 95 General Appearance: WD/WN, no apparent distress, + obese Eyes: normal inspection, PERRL, EOMI Neck: supple, no JVD, trachea midline Respiratory/Chest: no respiratory distress, no accessory muscle use, + decreased breath sounds Cardiovascular: regular rate, rhythm, no gallop, no murmur Abdomen: normal bowel sounds, non tender, + distended (mild) Extremities: + swelling (generalized edema on legd) Neurologic/Psych: alert, normal mood/affect, oriented x 3 Skin: normal color, no jaundice, no rash Laboratory Results Last 24 Hours Test 10/23/16 12:15 10/23/16 12:50 White Blood Count 13.91 K/uL Red Blood Count 3.88 M/uL Hemoglobin 11.2 g/dL Hematocrit 33.9 % Mean Corpuscular Volume 87.4 fL Mean Corpuscular Hemoglobin 28.9 pg Mean Corpuscular Hemoglobin Concent 33.0 g/dl Platelet Count 166 K/uL Mean Platelet Volume 11.4 fL Neutrophils (%) (Auto) 81.0 % Lymphocytes (%) (Auto) 9.6 % Monocytes (%) (Auto) 8.6 % Eosinophils (%) (Auto) 0.4 % Basophils (%) (Auto) 0.1 % Neutrophils # (Auto) 11.27 K/uL Lymphocytes # (Auto) 1.34 K/uL Monocytes # (Auto) 1.19 K/uL Eosinophils # (Auto) 0.05 K/uL Basophils # (Auto) 0.02 K/uL RDW Standard Deviation 64.3 fL RDW Coefficient of Variation 20.2 % Immature Granulocyte % (Auto) 0.3 % Immature Granulocyte # (Auto) 0.04 K/uL Anisocytosis PRESENT Prothrombin Time 13.7 SECONDS Prothromb Time International Ratio 1.3 Activated Partial Thromboplast Time 28.5 SECONDS Partial Thromboplastin Ratio 1.1 Sodium Level 140 mmol/L Potassium Level 4.3 mmol/L Chloride Level 107 mmol/L Carbon Dioxide Level 21 mmol/L Anion Gap 12.0 mmol/L Blood Urea Nitrogen 39 mg/dl Creatinine 2.70 mg/dl Est Creatinine Clear Calc Drug Dose 16.8 ml/min Estimated GFR () 19.1 Estimated GFR (Non- 16.5 BUN/Creatinine Ratio 14.6 Random Glucose 110 mg/dl Calcium Level 8.6 mg/dl Total Bilirubin 1.3 mg/dl Aspartate Amino Transf (AST/SGOT) 108 U/L Alanine Aminotransferase (ALT/SGPT) 40 U/L Alkaline Phosphatase 192 U/L Troponin I 0.035 ng/ml Pro-B-Type Natriuretic Peptide 1017 pg/ml Total Protein 6.6 gm/dl Albumin 2.2 gm/dl Globulin 4.4 gm/dl Albumin/Globulin Ratio 0.5 Lipase 233 U/L Urine Color DK YELLOW Urine Appearance CLOUDY Urine pH 5.0 Urine Specific [place] 1.020 Urine Protein NEG Urine Glucose (UA) NEG Urine Ketones TRACE Urine Occult Blood NEG Urine Nitrite NEG Urine Bilirubin NEG Urine Urobilinogen NEG Urine Leukocyte Esterase SMALL Urine WBC (Auto) 10-30 /hpf Urine RBC (Auto) 0-4 /hpf Urine Hyaline Casts (Auto) 5-10 /lpf Urine Epithelial Cells (Auto) >30 /lpf Urine Bacteria (Auto) NEG Impression Patient is a 76 year old female w 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 Cr also up from baseline 1.8 to 2.5 -> noted this from last week and suspected to maybe from diuretic increase. Plan - Hold diuretics, consult Nephrology. - Start Albumin 25% 25g q6hrs. - U/S paracentesis (diagnostic and therapeutic) w fluid analysis. - Check stool cx, Cdiff, giardia - Questran 4g BID, Imodium 2 tabs TID prn diarrhea. - Low salt, heart healthy diet. - Will continue to follow
--- NOTE | 2016-10-23 17:37 | DIAGNOSTIC IMAGING REPORT ---
ULTRASOUND GUIDED DIAGNOSTIC AND THERAPEUTIC PARACENTESIS CLINICAL HISTORY: Ascites. COMPARISON STUDY: CT of the abdomen and pelvis October 23, 2016. PROCEDURE: The risks, benefits, and alternatives to the procedure were discussed with the patient including the risk of bleeding, infection and injury to adjacent structures. The patient agreed to the procedure and informed written consent was obtained. Following real-time ultrasound localization, the skin of the right lower quadrant was prepped and draped. Following local anesthesia with Xylocaine, the sheath paracentesis needle was inserted and approximately 2 liters of straw-colored fluid was removed by vacuum suction. No additional fluid could be withdrawn. Postprocedure ultrasound demonstrated a small amount of residual ascites. The patient tolerated the procedure well and no immediate complications were evident. IMPRESSION: Ultrasound-guided paracentesis with removal of 2 liters of ascites. Electronically signed by: Gabriel Vieyra M.D. 10/23/2016 5:36 PM Dictated Date/Time: 10/23/2016 5:34 PM
--- NOTE | 2016-10-23 17:40 | DIAGNOSTIC IMAGING REPORT ---
BILATERAL CHEST ULTRASOUND TO EVALUATE FOR PLEURAL EFFUSIONS CLINICAL HISTORY: Right-sided pleural effusion. COMPARISON STUDY: CT of the abdomen and pelvis performed earlier today. FINDINGS: Sonography of the right hemithorax demonstrated a moderate right pleural effusion with estimated volume of 606 cc. A suitable right rib interspace was marked for possible subsequent thoracentesis. An apparent left pleural effusion represents abdominal ascites within a hiatal hernia, as demonstrated on abdominal CT. There is no significant left pleural effusion. IMPRESSION: 1. Moderate size right pleural effusion with estimated volume of 606 cc. Suitable right rib interspace marked for possible subsequent thoracentesis. 2. No significant left pleural fluid. Electronically signed by: Gabriel Vieyra M.D. 10/23/2016 5:38 PM Dictated Date/Time: 10/23/2016 5:36 PM
--- NOTE | 2016-10-23 17:50 | EMERGENCY ROOM VISIT NOTE ---
History Report prepared by Radha: Venu Rodriguez Under the Supervision of: Dr. Jeffery Rodirguez D.O. First contact with patient: 12:15 Chief Complaint: NAUSEA Stated Complaint: NAUSEA,WEAKNESS-DOCTOR REFERRED Nursing Triage Summary: pt to the ED with nausea, sob and sent in by PMD for renal failure see orange sheet History of Present Illness The patient is a 76 year old female who presents to the Emergency Room with complaints of persistent generalized weakness beginning last week. She also complains of nausea, abdominal bloating, leg swelling, and SOB. She was referred to the ED by her PCP today after receiving the results of blood work drawn four days ago. The patient states that she has felt nauseated and weak for "a long time", and has had abdominal bloating and leg swelling for about 1.5 months. She has a history of asthma. Her last normal bowel movement was earlier today. Pt denies headache, cough, change in vision, fevers, chest pain, abdominal pain, vomiting, pain with urination, and melena. The patient states that she has been having problems with diarrhea for six months. Source of History: patient Onset: Last week Position: other (generalized) Quality: other (weakness) Timing: other (persistent) Associated Symptoms: + SOB, + nausea, No fevers, No headache, No chest pain , No vomiting, No urinary symptoms Note: The patient also complains of abdominal bloating and leg swelling. Review of Systems See HPI for pertinent positives & negatives. A total of 10 systems reviewed and were otherwise negative. Past Medical & Surgical Medical Problems: (1) ROSANGELA (acute kidney injury) (2) Asthma (3) Cirrhosis (4) CKD (chronic kidney disease), stage IV (5) DM type 2 (diabetes mellitus, type 2) (6) Dyslipidemia (7) GERRY (generalized anxiety disorder) (8) GERD (gastroesophageal reflux disease) (9) HTN (hypertension) Surgical Problems: (1) H/O sinus surgery (2) History of hysterectomy (3) Hx of appendectomy (4) S/P cardiac cath (5) S/p rectocele repair Family History Cardiac disorder MOTHER FH: cancer FATHER (lung CA) Social History Smoking Status: Never Smoker Alcohol Use: none Marital Status: Housing Status: lives with family Occupation Status: retired Current/Historical Medications Scheduled Amlodipine (Norvasc), 2.5 MG PO DAILY Atorvastatin (Lipitor), 10 MG PO HS Buspirone Hcl (Buspirone Hcl), 10 MG PO TID Fluoxetine (Prozac), 40 MG PO DAILY Fluoxetine (Prozac), 20 MG PO DAILY Fluticasone Propionate (Flovent Hfa), 2 PUFFS INH BID Furosemide (Lasix), 20 MG PO DAILY Lutein (Hm Lutein), 20 MG PO DAILY Multiple Vitamins W/ Minerals (Icaps), 1 CAP PO DAILY Pantoprazole (Protonix), 40 MG PO DAILY Scheduled PRN Albuterol (Ventolin Hfa), 2 PUFFS INH Q4 PRN for SOB/Wheezing Loperamide Hcl (Loperamide Hcl), 2 MG PO UD PRN for Constipation Ondansetron Hcl (Zofran), 4 MG PO Q6H PRN for Nausea Allergies Coded Allergies: Erythromycin (Unverified Allergy, Mild, STOMACH PAIN, 10/23/16) Butorphanol (Unverified Allergy, Unknown, LOOPY, 10/23/16) Physical Exam Vital Signs Date Time Temp Pulse Resp B/P (MAP) Pulse Ox O2 Delivery O2 Flow Rate FiO2 10/23/16 14:31 91 20 128/66 97 Room Air 10/23/16 13:00 88 20 161/87 98 Room Air 10/23/16 12:39 97 Room Air 10/23/16 12:33 88 10/23/16 12:32 97 Room Air 10/23/16 11:40 36.6 97 18 134/60 95 Physical Exam GENERAL: Disheveled, chronically ill appearing, talking in full sentences. EYE EXAM: normal conjunctiva. OROPHARYNX: no exudate, no erythema, lips, buccal mucosa, and tongue normal and mucous membranes are moist NECK: supple, no nuchal rigidity, no adenopathy, non-tender LUNGS: Normal chest wall mechanics. Rhonchi bilateral bases. HEART: no murmurs, S1 normal and S2 normal ABDOMEN: abdomen distended, non-tender, normo-active bowel sounds, no masses, no rebound or guarding. BACK: Back is symmetrical on inspection and there is no deformity, no midline tenderness, no CVA tenderness. SKIN: no rashes and no bruising UPPER EXTREMITIES: upper extremities are grossly normal. LOWER EXTREMITIES: Faint pitting edema. NEURO EXAM: Normal sensorium, cranial nerves II-XII grossly intact, normal speech, no gross weakness of arms, no gross weakness of legs. Medical Decision & Procedures ER Provider Diagnostic Interpretation: Radiology results as stated below per my review and the radiologist's interpretation: SINGLE VIEW CHEST FINDINGS: An AP, portable, upright chest radiograph is correlated with chest CT dated 09/05/2016. The examination is degraded by portable technique, apical positioning, and patient rotation. The heart is top normal for projection. A large hiatal hernia is identified. There is a left pleural effusion with left basilar consolidation. The right lung appears clear. No pneumothorax is seen. The skeletal structures are osteopenic. The bony thorax is grossly intact. IMPRESSION: 1. There is a left pleural effusion with left basilar consolidation which likely represents atelectasis. Clinical correlation will be required. This is similar to the 09/05/2016 CT scan. 2. Hiatal hernia. Electronically signed by: Ty Montano M.D. CT SCAN OF THE ABDOMEN AND PELVIS WITHOUT CONTRAST FINDINGS: Lower chest: There is a moderate hiatal hernia. There is an increasing moderate right pleural effusion. Liver: The liver has a cirrhotic morphology. No masses are visualized in this noncontrast study. Gallbladder: Surgically absent Spleen: There is mild splenomegaly Pancreas: Unremarkable. Adrenal glands: Unremarkable. Kidneys: There are punctate nonobstructing left renal calculi. There is no hydronephrosis.. 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 No ureteral or bladder calculi are visualized. Bowel: There are no transition zones indicate bowel obstruction. There is subserosal fatty hypertrophy of the colon. By history the appendix is absent. There is no acute diverticulitis. Peritoneum: There is moderate ascites similar to the preceding study. Vasculature: There is no evidence of abdominal aortic aneurysm. Upper abdominal varices remain stable Adenopathy: None. Pelvic viscera: The uterus appears surgically absent Skeletal structures: No destructive osseous lesions are seen. IMPRESSION: 1. Interval passage of the previously identified 3 mm distal left ureteral calculus 2. Punctate nonobstructing left renal calculi 3. No evidence of bowel obstruction. No evidence of free air 4. Increasing moderate right pleural effusion 5. Stable moderate ascites 6. Cirrhotic morphology of the liver. Upper abdominal varices. 7. Large hiatal hernia Electronically signed by: Shayan Bhatt M.D Laboratory Results 10/23/16 12:15 Red Blood Count 3.88, Mean Corpuscular Volume 87.4, Mean Corpuscular Hemoglobin 28.9, Mean Corpuscular Hemoglobin Concent 33.0, Mean Platelet Volume 11.4, Neutrophils (%) (Auto) 81.0, Lymphocytes (%) (Auto) 9.6, Monocytes (%) (Auto) 8.6, Eosinophils (%) (Auto) 0.4, Basophils (%) (Auto) 0.1, Neutrophils # (Auto) 11.27, Lymphocytes # (Auto) 1.34, Monocytes # (Auto) 1.19, Eosinophils # (Auto) 0.05, Basophils # (Auto) 0.02 10/23/16 12:15 Test 10/23/16 12:15 10/23/16 12:50 White Blood Count 13.91 K/uL (4.8-10.8) Red Blood Count 3.88 M/uL (4.2-5.4) Hemoglobin 11.2 g/dL (12.0-16.0) Hematocrit 33.9 % (37-47) Mean Corpuscular Volume 87.4 fL (80-100) Mean Corpuscular Hemoglobin 28.9 pg (25-34) Mean Corpuscular Hemoglobin Concent 33.0 g/dl (32-36) Platelet Count 166 K/uL (130-400) Mean Platelet Volume 11.4 fL (7.4-10.4) Neutrophils (%) (Auto) 81.0 % Lymphocytes (%) (Auto) 9.6 % Monocytes (%) (Auto) 8.6 % Eosinophils (%) (Auto) 0.4 % Basophils (%) (Auto) 0.1 % Neutrophils # (Auto) 11.27 K/uL (1.4-6.5) Lymphocytes # (Auto) 1.34 K/uL (1.2-3.4) Monocytes # (Auto) 1.19 K/uL (0.11-0.59) Eosinophils # (Auto) 0.05 K/uL (0-0.5) Basophils # (Auto) 0.02 K/uL (0-0.2) RDW Standard Deviation 64.3 fL (36.4-46.3) RDW Coefficient of Variation 20.2 % (11.5-14.5) Immature Granulocyte % (Auto) 0.3 % Immature Granulocyte # (Auto) 0.04 K/uL (0.00-0.02) Anisocytosis PRESENT Prothrombin Time 13.7 SECONDS (9.0-12.0) Prothromb Time International Ratio 1.3 (0.9-1.1) Activated Partial Thromboplast Time 28.5 SECONDS (21.0-31.0) Partial Thromboplastin Ratio 1.1 Anion Gap 12.0 mmol/L (3-11) Est Creatinine Clear Calc Drug Dose 16.8 ml/min Estimated GFR () 19.1 Estimated GFR (Non- 16.5 BUN/Creatinine Ratio 14.6 (10-20) Calcium Level 8.6 mg/dl (8.5-10.1) Total Bilirubin 1.3 mg/dl (0.2-1) Aspartate Amino Transf (AST/SGOT) 108 U/L (15-37) Alanine Aminotransferase (ALT/SGPT) 40 U/L (12-78) Alkaline Phosphatase 192 U/L (45-117) Troponin I 0.035 ng/ml (0-0.045) Pro-B-Type Natriuretic Peptide 1017 pg/ml (0-1800) Total Protein 6.6 gm/dl (6.4-8.2) Albumin 2.2 gm/dl (3.4-5.0) Globulin 4.4 gm/dl (2.5-4.0) Albumin/Globulin Ratio 0.5 (0.9-2) Lipase 233 U/L (73-393) Urine Color DK YELLOW Urine Appearance CLOUDY (CLEAR) Urine pH 5.0 (4.5-7.5) Urine Specific [place] 1.020 (1.000-1.030) Urine Protein NEG (NEG) Urine Glucose (UA) NEG (NEG) Urine Ketones TRACE (NEG) Urine Occult Blood NEG (NEG) Urine Nitrite NEG (NEG) Urine Bilirubin NEG (NEG) Urine Urobilinogen NEG (NEG) Urine Leukocyte Esterase SMALL (NEG) Urine WBC (Auto) 10-30 /hpf (0-5) Urine RBC (Auto) 0-4 /hpf (0-4) Urine Hyaline Casts (Auto) 5-10 /lpf (0-5) Urine Epithelial Cells (Auto) >30 /lpf (0-5) Urine Bacteria (Auto) NEG (NEG) Laboratory results per my review. Medications Administered Medications (Trade) Dose Ordered Sig/Edilson Route Start Time Stop Time Status Last Admin Dose Admin Sodium Chloride 500 ml @ 999 mls/hr Q31M STAT IV 10/23/16 14:38 10/23/16 15:35 DC 10/23/16 15:01 999 MLS/HR Sodium Chloride 500 ml @ 999 mls/hr Q31M STAT IV 10/23/16 14:48 10/23/16 15:35 DC 10/23/16 15:01 999 MLS/HR Ondansetron HCl (Zofran Inj) 4 mg STK-MED ONCE .ROUTE 10/23/16 15:04 10/23/16 15:05 DC 10/23/16 15:08 4 MG ECG Indication: weakness Rate (beats per minute): 89 Rhythm: sinus rhythm Findings: no ectopy, other (Early R-wave progression) ED Course ED COURSE: Vital signs were reviewed and showed hypertension The patients medical record was reviewed The above diagnostic studies were performed and reviewed. ED treatments and interventions as stated above. 1220: The patient was evaluated in room C12B. A complete history and physical examination was performed. 1440: Upon reevaluation, the patient is resting comfortably. I discussed my findings with the patient and she understands and agrees with the treatment plan. Case management set up an appointment with her primary care tomorrow, but the patient declined as she does not like the PA-C. She will follow up in three days. Based on the patients age, coexisting illnesses, exam and lab findings the decision to treat as an inpatient was made. The patient remained stable while under my care. The patient will be evaluated for further management. Medical Decision Differential Diagnosis includes but is not limited to dehydration, stroke, anemia, hypoglycemia, hyponatremia, hypernatremia, urinary tract infection, pneumonia, bronchitis, sepsis, gastroenteritis, additional abdominal pathology, metabolic abnormalities and infections. Blood pressure screening: Patient was found to have an elevated blood pressure and was referred to their primary doctor for recheck and further treatment. Medication Reconciliation: I attest that I have personally reviewed the patient' s current medication list. Patient is a 76-year-old female who presents the ER for weakness associated with nausea sent in by the primary care doctor for persistent elevation in her creatinine. Baseline appears to be around 1.6-1.8. She was seen here previously in the ER was found to have a creatinine of 2.7. She refused admission. She went home her creatinine has continued to elevate today is 2.7. She has not been eating and drinking much. She has no abdominal pain but does admit to nausea. UA has multiple epithelial cells with a small amount of whites. Will not treat at this time. Patient was evaluated by GI. CT of the abd/pelvis shows no acute pathology. Patient was admitted for further workup. Consults Time Called: 1440 Consulting Physician: Ladonna Ridley Returned Call: [phone] I reviewed the patient's case with Ladonna PHILLIPS. Marnie will evaluate the patient for further management. Impression Primary Impression: Acute kidney injury Additional Impression: Nausea Scribe Attestation The scribe's documentation has been prepared under my direction and personally reviewed by me in its entirety. I confirm that the note above accurately reflects all work, treatment, procedures, and medical decision making performed by me. Departure Information Dispostion Being Evaluated By Hospitalist Referrals Marisol Sepulveda M.D. (PCP) Patient Instructions My [facility] Problem Qualifiers
[2016-10-23 17:55] VITALS: BP 147/78; PULSE 87; TEMP 36.5; O2SAT 94; Ht 162.6 cm; Wt 69.5 kg
[2016-10-23] MEDS ORDERED: ALBUMIN HUMAN 25% 12.5 GM/50 ML VIAL IV SCH (18:00)
--- NOTE | 2016-10-23 18:53 | History and Physical ---
History & Physical Date & Time of Service: Oct 23, 2016 ~ 15:30 Chief Complaint: Shortness of Breath Primary Care Physician: Dr. Sepulveda History of Present Illness Source: patient 76 year old female who presents to the ER with shortness of breath. Patient was recently diagnosed with MORRISON a few months ago. A couple of weeks ago, her Lasix was increased from 20mg daily to 40mg daily to help manage ascites. Outpatient labs showed that her creatine went up to 2.5 from a high 1 baseline. She was evaluated in the ED and given IVF and discharged home, Lasix was then reduced back to 20mg daily. Despite these measures, creat remains elevated. Patient reports increasing shortness of breath. She feels as though her abdomen is becoming more distended and pushing on her lungs making it hard to breath. She denies cough or sputum production. No fever or chills. She does not feel as though she is drinking enough water. She denies chest pain, lightheadedness, dizziness, diaphoresis, or syncopal events. She reports chronic diarrhea for the past 6 months. Reports some occasional abdominal cramping before bowel movements otherwise denies abdominal pain. She sometimes has mild regurgitation after eating. She denies hematemesis, coffee ground emesis, BRBPR, or dark tarry stools. She denies urinary symptoms. In the ER, creat is 2.7. CT abd/ pelvis is showing a moderate amount of ascites and right pleural effusion. Past Medical/Surgical History Medical Problems: (1) Asthma Status: Chronic (2) CKD (chronic kidney disease), stage IV Status: Chronic (3) DM type 2 (diabetes mellitus, type 2) Status: Chronic (4) Dyslipidemia Status: Chronic (5) GERRY (generalized anxiety disorder) Status: Chronic (6) GERD (gastroesophageal reflux disease) Status: Chronic (7) HTN (hypertension) Status: Chronic (8) MORRISON (nonalcoholic steatohepatitis) Status: Chronic (9) Varices, esophageal Status: Chronic Surgical Problems: (1) H/O sinus surgery Status: Chronic (2) History of esophagogastroduodenoscopy (EGD) Permanent Comment: 09/07/16 - Grade II esophageal varices banded, GAVE, 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 HTN Status: Chronic (3) History of hysterectomy Status: Chronic (4) Hx of appendectomy Status: Resolved (5) S/P cardiac cath Status: Chronic (6) S/p rectocele repair Status: Chronic Family History Cardiac disorder MOTHER FH: cancer FATHER (lung [place]) Social History Smoking Status: Never Smoker Alcohol Use: none Marital Status: Housing status: lives with significant other Immunizations History of Tetanus Vaccine?: Yes Tetanus Immunization Date: Feb 20, 2013 History of Pneumococcal: Yes Pneumococcal Date: Aug 02, 2015 History of Hepatitis B Vaccine: Yes Hepatitis Immunization Date: Oct 18, 2016 Allergies Coded Allergies: Erythromycin (Unverified Allergy, Mild, STOMACH PAIN, 10/23/16) Butorphanol (Unverified Allergy, Unknown, LOOPY, 10/23/16) Home Medications Scheduled Amlodipine (Norvasc), 2.5 MG PO DAILY Atorvastatin (Lipitor), 10 MG PO HS Buspirone Hcl (Buspirone Hcl), 10 MG PO TID Fluoxetine (Prozac), 40 MG PO DAILY Fluoxetine (Prozac), 20 MG PO DAILY Fluticasone Propionate (Flovent Hfa), 2 PUFFS INH BID Furosemide (Lasix), 20 MG PO DAILY Lutein (Hm Lutein), 20 MG PO DAILY Multiple Vitamins W/ Minerals (Icaps), 1 CAP PO DAILY Pantoprazole (Protonix), 40 MG PO DAILY Scheduled PRN Albuterol (Ventolin Hfa), 2 PUFFS INH Q4 PRN for SOB/Wheezing Loperamide Hcl (Loperamide Hcl), 2 MG PO UD PRN for Constipation Ondansetron Hcl (Zofran), 4 MG PO Q6H PRN for Nausea Review of Systems ROS per HPI, all other systems reviewed and negative Physical Exam Vital Signs Date Time Temp Pulse Resp B/P (MAP) Pulse Ox O2 Delivery O2 Flow Rate FiO2 10/23/16 17:55 36.5 87 16 147/78 94 Room Air 10/23/16 16:16 61 20 128/78 98 Room Air 10/23/16 14:31 91 20 128/66 97 Room Air 10/23/16 13:00 88 20 161/87 98 Room Air 10/23/16 12:39 97 Room Air 10/23/16 12:33 88 10/23/16 12:32 97 Room Air 10/23/16 11:40 36.6 97 18 134/60 95 General Appearance: no apparent distress Head: normocephalic Eyes: normal inspection ENT: hearing grossly normal Neck: supple, no JVD Respiratory/Chest: no respiratory distress, + decreased breath sounds (BL) Cardiovascular: regular rate, rhythm, no edema, normal peripheral pulses Abdomen/GI: normal bowel sounds, + distended (semi firm) Extremities/Musculoskelatal: normal inspection, no calf tenderness Neurologic/Psych: no motor/sensory deficits, alert, normal mood/affect, oriented x 3 Skin: normal color, warm/dry Diagnostics Laboratory Results Results Past 24 Hours Test 10/23/16 12:15 10/23/16 12:50 10/23/16 18:02 Range/Units White Blood Count 13.91 4.8-10.8 K/uL Red Blood Count 3.88 4.2-5.4 M/uL Hemoglobin 11.2 12.0-16.0 g/dL Hematocrit 33.9 37-47 % Mean Corpuscular Volume 87.4 80-100 fL Mean Corpuscular Hemoglobin 28.9 25-34 pg Mean Corpuscular Hemoglobin Concent 33.0 32-36 g/dl Platelet Count 166 130-400 K/uL Mean Platelet Volume 11.4 7.4-10.4 fL Neutrophils (%) (Auto) 81.0 % Lymphocytes (%) (Auto) 9.6 % Monocytes (%) (Auto) 8.6 % Eosinophils (%) (Auto) 0.4 % Basophils (%) (Auto) 0.1 % Neutrophils # (Auto) 11.27 1.4-6.5 K/uL Lymphocytes # (Auto) 1.34 1.2-3.4 K/uL Monocytes # (Auto) 1.19 0.11-0.59 K/uL Eosinophils # (Auto) 0.05 0-0.5 K/uL Basophils # (Auto) 0.02 0-0.2 K/uL RDW Standard Deviation 64.3 36.4-46.3 fL RDW Coefficient of Variation 20.2 11.5-14.5 % Immature Granulocyte % (Auto) 0.3 % Immature Granulocyte # (Auto) 0.04 0.00-0.02 K/uL Anisocytosis PRESENT Prothrombin Time 13.7 9.0-12.0 SECONDS Prothromb Time International Ratio 1.3 0.9-1.1 Activated Partial Thromboplast Time 28.5 21.0-31.0 SECONDS Partial Thromboplastin Ratio 1.1 Sodium Level 140 136-145 mmol/L Potassium Level 4.3 3.5-5.1 mmol/L Chloride Level 107 98-107 mmol/L Carbon Dioxide Level 21 21-32 mmol/L Anion Gap 12.0 3-11 mmol/L Blood Urea Nitrogen 39 7-18 mg/dl Creatinine 2.70 0.60-1.20 mg/dl Est Creatinine Clear Calc Drug Dose 16.8 ml/min Estimated GFR () 19.1 Estimated GFR (Non- 16.5 BUN/Creatinine Ratio 14.6 10-20 Random Glucose 110 70-99 mg/dl Calcium Level 8.6 8.5-10.1 mg/dl Total Bilirubin 1.3 0.2-1 mg/dl Aspartate Amino Transf (AST/SGOT) 108 15-37 U/L Alanine Aminotransferase (ALT/SGPT) 40 12-78 U/L Alkaline Phosphatase 192 45-117 U/L Troponin I 0.035 0-0.045 ng/ml Pro-B-Type Natriuretic Peptide 1017 0-1800 pg/ml Total Protein 6.6 6.4-8.2 gm/dl Albumin 2.2 3.4-5.0 gm/dl Globulin 4.4 2.5-4.0 gm/dl Albumin/Globulin Ratio 0.5 0.9-2 Lipase 233 73-393 U/L Urine Color DK YELLOW Urine Appearance CLOUDY CLEAR Urine pH 5.0 4.5-7.5 Urine Specific [place] 1.020 1.000-1.030 Urine Protein NEG NEG Urine Glucose (UA) NEG NEG Urine Ketones TRACE NEG Urine Occult Blood NEG NEG Urine Nitrite NEG NEG Urine Bilirubin NEG NEG Urine Urobilinogen NEG NEG Urine Leukocyte Esterase SMALL NEG Urine WBC (Auto) 10-30 0-5 /hpf Urine RBC (Auto) 0-4 0-4 /hpf Urine Hyaline Casts (Auto) 5-10 0-5 /lpf Urine Epithelial Cells (Auto) >30 0-5 /lpf Urine Bacteria (Auto) NEG NEG Diagnostic Radiology CXR IMPRESSION: 1. There is a left pleural effusion with left basilar consolidation which likely represents atelectasis. Clinical correlation will be required. This is similar to the 09/05/2016 CT scan. 2. Hiatal hernia. CT ABD/PELVIS IMPRESSION: 1. Interval passage of the previously identified 3 mm distal left ureteral calculus 2. Punctate nonobstructing left renal calculi 3. No evidence of bowel obstruction. No evidence of free air 4. Increasing moderate right pleural effusion 5. Stable moderate ascites 6. Cirrhotic morphology of the liver. Upper abdominal varices. 7. Large hiatal hernia Impression Assessment and Plan ASCITES, PLEURAL EFFUSION, HX MORRISON W/ VARICES ROSANGELA ON CKD STAGE IV - admit to med/surg - patient presenting with increasing shortness of breath; as an outpatient Lasix was increased a couple of weeks ago that resulted in worsening renal function and despite reducing Lasix and receiving IVF, creatinine remains elevated - ? hepatorenal syndrome - prior baseline creat ran in the high 1's, now up to the mid 2's - CT today showing moderate ascites and pleural effusion - both due to MORRISON - will obtain US to quantify effusion - consider therapeutic thoracentesis - case discussed with JACQUELINE Da Silva - will plan for IV Albumin and paracentesis - no not suspect SBP - hold Lasix for now - case discussed with Dr. Seo DIARRHEA - chronic for the past 6 months - check stool studies HIATAL HERNIA - has been evaluated by CT surgery who said she was not a good candidate for repair due to varices HTN - BP controlled, continue amlodipine DEPRESSION / ANXIETY - continue fluoxetine and buspirone HLD - continue statin DVT PROPHYLAXIS - SCDs due to esophageal varices CODE STATUS - Patient is a full code as per my discussion with her. DISPO - In my clinical judgment this beneficiary meets acute admission criteria, established by [facility], that includes being hospitalized through two midnights. Attending Note: Assessment and Plan: Patient is a 76 Yr female who presents for evaluation of worsening SOB, leg swelling, Cr levels, Abdominal distention, nausea and generalized weakness. She had paracentesis in ED per recommendations from GI and currently feels better. Physical Exam: Vitals signs as noted above General Appearance:Moderately built and nourished, no apparent distress Head: normocephalic, Atraumatic Eyes: normal inspection, EOMI, PERRL Neck: supple, Trachea midline Respiratory/Chest: Normal breath sounds, Left base minimal creps, R base decreased BS Cardiovascular: S1, S2, No murmur Abdomen/GI:Soft, Non tender, Bowel sounds present, +Protuberant Extremities/Musculoskelatal:normal inspection, + Non pitting B/L edema Neurologic/Psych:AAOX3, grossly no focal neurological deficits Skin:normal color,warm Volume overload status: Ascites and Pleural effusion S/P paracentesis CT surgery consulted for thoracentesis ROSANGELA on CKD IV Planned for Albumin Infusion GI and Nephrology consulted CXR: Possible Left basilar consolidation Vs atelectasis Denies cough, chest pain, fever, chills Has leukocytosis Check procalcitonin Consider antibiotics if clinically warranted I personally reviewed the record. Patient is interviewed and examined at bedside. Patient's care is coordinated with Ladonna Quiroz ELECTRICAL MAINTENANCE TECHNICIAN. Please refer to the documentation above for details of patient's presentation and for discussion of other issues. Advanced Directives Existing Living Will: No Existing Power of Design Analyst: No VTE Prophylaxis VTE Risk Assessment Done? Y/N: Yes Risk Level: Moderate
[2016-10-23] MEDS: ALBUMIN HUMAN 25% 12.5 GM/50 ML VIAL IV SCH ×3 (19:15→23:38)
[2016-10-23 19:59] LABS: PERIT FL WBC 106 /uL (0-300); PERITONEAL FLUID RBC < 3000 /uL
[2016-10-23] MEDS: FLUTICASONE HFA 110MCG INHALER INH SCH (20:21)
[2016-10-23] MEDS: ATORVASTATIN 10 MG TAB PO SCH (20:22)
[2016-10-23] MEDS: CHOLESTYRAMINE LIGHT 4 GM PKT PO SCH (21:35)
[2016-10-23 23:17] VITALS: BP 144/72; PULSE 87; TEMP 36.7; O2SAT 95
[2016-10-24] VITALS (8 sets, daily range): BP systolic 119–150; BP diastolic 62–81; PULSE 79–90; TEMP 36.4–36.8; O2SAT 93–95
[2016-10-24] MEDS: ALBUMIN HUMAN 25% 12.5 GM/50 ML VIAL IV SCH ×6 (01:48→23:58)
[2016-10-24 06:19] LABS: HEMATOCRIT 31.5 % (37-47); MEAN CELL VOLUME 88.5 fL (80-100); MEAN CORPUSCULAR HEMOGLOBIN 28.4 pg (25-34); MEAN CORPUSCULAR HGB CONC 32.1 g/dl (32-36); MEAN PLATELET VOLUME 10.3 fL (7.4-10.4); PLATELET COUNT 112 K/uL (130-400); RED BLOOD COUNT 3.56 M/uL (4.2-5.4); WHITE BLOOD COUNT 11.62 K/uL (4.8-10.8)
[2016-10-24 06:47] LABS: BUN/CREATININE RATIO 14.4 (10-20); CALCIUM 8.6 mg/dl (8.5-10.1); CREATININE 2.7 mg/dl (0.60-1.20); POTASSIUM 4.1 mmol/L (3.5-5.1)
[2016-10-24 06:58] LABS: ALB/GLOB RATIO 0.7 (0.9-2)
[2016-10-24] MEDS: CEROVITE ADV FORMULA TAB PO SCH (08:00)
[2016-10-24] MEDS ORDERED: FLUOXETINE HCL 20 MG CAP PO SCH (08:00)
[2016-10-24] MEDS ORDERED: LUTEIN 20 MG PO SCH (08:00)
[2016-10-24] MEDS: PANTOprazole SOD 40 MG TAB PO SCH (08:47)
[2016-10-24] MEDS: AMLODIPINE BESYLATE 5 MG TAB PO SCH (08:48)
[2016-10-24] MEDS: FLUOXETINE HCL 20 MG CAP PO SCH (08:49)
[2016-10-24] MEDS: FLUTICASONE HFA 110MCG INHALER INH SCH ×2 (08:50→20:26)
[2016-10-24] MEDS ORDERED: NURSING VERBAL MED ORDER ONE (09:15)
[2016-10-24] MEDS: ONDANSETRON INJ 2 MG/ML 2 ML VIAL IV PRN (09:43)
[2016-10-24] MEDS: CHOLESTYRAMINE LIGHT 4 GM PKT PO SCH ×2 (09:43→21:37)
--- NOTE | 2016-10-24 12:20 | Gastroenterology Progress Note ---
Progress Note Date of Service: Oct 24, 2016 Subjective Pt evaluation today including: conversation w/ patient, physical exam, chart review, lab review, review of inpatient medication list Pt felt tired, reports diarrhea last night. Also some SOB. 2L ascites removal via paracentesis yesterday, fluid analysis w/o SBP. Review of Systems Constitutional: No fever, No chills Respiratory: + shortness of breath, No cough Cardiac: No chest pain Abdomen: + nausea, + diarrhea, No pain, No vomiting Endo: + fatigue Medications Current Inpatient Medications Medications (Trade) Dose Ordered Sig/Edilson Route Start Time Stop Time Status Last Admin Dose Admin Cholestyramine Resin (Questran Powder Light) 4 gm BID@ PO 10/23/16 22:00 11/22/16 21:59 10/24/16 09:43 4 GM Loperamide HCl (Imodium Cap) 2 mg TID PRN PO 10/23/16 15:45 11/22/16 15:44 10/24/16 10:54 2 MG Acetaminophen (Tylenol Tab) 650 mg Q4H PRN PO 10/23/16 15:45 11/22/16 15:44 Ondansetron HCl (Zofran Inj) 4 mg Q6H PRN IV 10/23/16 15:45 11/22/16 15:44 10/24/16 09:43 4 MG Albumin Human (Albumin 25%) 12.5 gm Q6H IV 10/23/16 18:00 10/26/16 17:59 10/24/16 05:52 12.5 GM Amlodipine Besylate (Norvasc Tab) 2.5 mg DAILY PO 10/24/16 08:00 11/23/16 08:59 10/24/16 08:48 2.5 MG Atorvastatin Calcium (Lipitor Tab) 10 mg HS PO 10/23/16 21:00 11/22/16 20:59 10/23/16 20:22 10 MG Fluoxetine HCl (Prozac Cap) 60 mg DAILY PO 10/24/16 08:00 11/23/16 08:59 10/24/16 08:49 60 MG Fluticasone Propionate (Flovent Hfa 110MCG Inhaler) 2 puffs BID INH 10/23/16 20:00 11/22/16 20:59 10/24/16 08:50 2 PUFFS Pantoprazole Sodium (Protonix Tab) 40 mg DAILY PO 10/24/16 08:00 11/23/16 08:59 10/24/16 08:47 40 MG Buspirone HCl (Buspar Tab) 10 mg TID PO 10/23/16 20:00 11/22/16 19:59 10/24/16 08:49 10 MG Multivitamins/ Minerals (Multivitamin W/ Minerals Tab) 1 tab DAILY PO 10/24/16 08:00 11/23/16 07:59 Objective Vital Signs Date Time Temp Pulse Resp B/P (MAP) Pulse Ox O2 Delivery O2 Flow Rate FiO2 10/24/16 08:00 Room Air 10/24/16 07:12 36.8 86 18 121/68 (85) 93 Room Air 10/24/16 05:50 36.6 84 18 119/65 (83) 93 Room Air 10/24/16 03:00 36.7 79 16 126/62 (83) 93 Room Air 10/24/16 01:50 36.8 82 18 122/64 (83) 94 Room Air 10/23/16 23:45 Room Air 10/23/16 23:17 36.7 87 16 144/72 (96) 95 Room Air 10/23/16 17:55 36.5 87 16 147/78 94 Room Air 10/23/16 16:16 61 20 128/78 98 Room Air 10/23/16 14:31 91 20 128/66 97 Room Air 10/23/16 13:00 88 20 161/87 98 Room Air 10/23/16 12:39 97 Room Air 10/23/16 12:33 88 10/23/16 12:32 97 Room Air Physical Exam General Appearance: WD/WN, + mild distress Eyes: normal inspection, PERRL, EOMI Neck: supple, no JVD, trachea midline Respiratory/Chest: no respiratory distress, no accessory muscle use, + decreased breath sounds Cardiovascular: regular rate, rhythm, no gallop, no murmur Abdomen: normal bowel sounds, non tender, soft Extremities: normal inspection, no pedal edema, no calf tenderness Neurologic/Psych: alert, normal mood/affect, oriented x 3 Skin: normal color, no jaundice, no rash Laboratory Results Last 24 Hours Test 10/23/16 12:50 10/23/16 19:02 10/23/16 21:00 10/24/16 04:25 Urine Color DK YELLOW Urine Appearance CLOUDY Urine pH 5.0 Urine Specific [place] 1.020 Urine Protein NEG Urine Glucose (UA) NEG Urine Ketones TRACE Urine Occult Blood NEG Urine Nitrite NEG Urine Bilirubin NEG Urine Urobilinogen NEG Urine Leukocyte Esterase SMALL Urine WBC (Auto) 10-30 /hpf Urine RBC (Auto) 0-4 /hpf Urine Hyaline Casts (Auto) 5-10 /lpf Urine Epithelial Cells (Auto) >30 /lpf Urine Bacteria (Auto) NEG Procalcitonin 1.46 ng/ml Bedside Glucose 110 mg/dl Test 10/24/16 06:05 White Blood Count 11.62 K/uL Red Blood Count 3.56 M/uL Hemoglobin 10.1 g/dL Hematocrit 31.5 % Mean Corpuscular Volume 88.5 fL Mean Corpuscular Hemoglobin 28.4 pg Mean Corpuscular Hemoglobin Concent 32.1 g/dl RDW Standard Deviation 64.9 fL RDW Coefficient of Variation 20.1 % Platelet Count 112 K/uL Mean Platelet Volume 10.3 fL Sodium Level 142 mmol/L Potassium Level 4.1 mmol/L Chloride Level 110 mmol/L Carbon Dioxide Level 24 mmol/L Anion Gap 8.0 mmol/L Blood Urea Nitrogen 39 mg/dl Creatinine 2.70 mg/dl Est Creatinine Clear Calc Drug Dose 16.8 ml/min Estimated GFR () 19.1 Estimated GFR (Non- 16.5 BUN/Creatinine Ratio 14.4 Random Glucose 122 mg/dl Calcium Level 8.6 mg/dl Total Bilirubin 1.2 mg/dl Aspartate Amino Transf (AST/SGOT) 70 U/L Alanine Aminotransferase (ALT/SGPT) 31 U/L Alkaline Phosphatase 145 U/L Total Protein 6.2 gm/dl Albumin 2.6 gm/dl Globulin 3.6 gm/dl Albumin/Globulin Ratio 0.7 Assessment and Plan Patient is a 76 year old female w 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 Cr also up from baseline 1.8 to 2.5 -> noted this from last week and suspected to maybe from diuretic increase. 10/23 - 2L ascites removal via paracentesis Plans - [facility] consult to help manage diuretics, monitor renal function - Possible thoracentesis by CT sx today (R pleural effusion) - Albumin 25% 12.5g q6hrs. - Check stool cx, Cdiff (-), giardia - Questran 4g BID, Imodium 2 tabs TID prn diarrhea. - Low salt, heart healthy diet. - Will continue to follow Late entry: Patient was seen and examined with June Perkins on 10/24. Her note reflects our findings and plan.
--- NOTE | 2016-10-24 13:01 | Medical Consult ---
Consultation Note Date of Service Oct 24, 2016. Consultation Note Thoracic surgery consultation note: Reason for consultation: Bilateral pleural effusions right greater than left. History of present illness: This is 76 that I met about 6 weeks ago when she presented with a large hiatal hernia. 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 I agreed with gastroenterology that she was extremely high risk for a problem with this especially in view of her ascites. Surgery was held and she's done well from a hiatal hernia standpoint however the patient presented with shortness of breath and has been seen to have increasing ascites. She also has pleural effusions. She denies nausea vomiting diarrhea. She does have increasing abdominal girth and increasing dyspnea on exertion. She has not required oxygen. She denies palpitations. She had no fevers or chills or productive cough. No hemoptysis. No epistaxis. She does have edema of her lower extremities left greater than right. No wound breakdown. She denies any visual or auditory symptoms I was asked to evaluate her. This morning the patient is on room air. Saturations are 94%. She states that her dyspnea and her shortness of breath is much improved since she had paracentesis for 2 L last night. I have been asked to comment on this pleural effusion. Past medical history : #1: MORRISON #2: Hiatal hernia #3: Gastroesophageal reflux disease #4: diabetes mellitus #5: generalized anxiety disorder #6: Esophageal varices #7: Dyslipidemia #8: chronic renal insufficiency #9: Hypertension Past surgical history: #1: Cardiac catheterization #2: Repair rectocele #3: appendectomy #4: history of sinus surgery Medications: See chart Allergies: Erythromycin, Butorphanol Social: Patient lives with her . She's never smoked cigarettes. Family medical history: Patient's father from lung cancer in her mother had apparent coronary artery disease. Review of systems: Patient's weight is been relatively stable. She denies night sweats or fevers. She denies hemoptysis, hematemesis, or hematochezia. She denies nausea and vomiting. She's had no neurologic symptoms such as amaurosis fugax or seizure. No visual or auditory symptoms. She's had no wound breakdown. She complained of increasing abdominal girth and increasing dyspnea on exertion. She also had edema of her lower extremities left greater than right. She denies hemoptysis. She does have some increasing dyspnea on exertion. Physical exam: This well-developed well-nourished female. Her stated age. She is awake and alert. Her extraocular movements are intact. Her sclerae are are anicteric. (Her bilirubin is 1.2). She has no nasolabial flattening. Tongue is midline. She is edentulous. Her oral mucosa is dry. Neck is supple. Thickness of the cervical lymphadenopathy. She has a regular rate and rhythm of heart without a rub. She decreased breath sounds at both bases right greater than left. She has no wheezing. Abdomen rate and rhythm her heart. Her abdomen is is obese soft she does have a fluid wave. She has relatively mild tenderness but complains of abdominal distention. She has easily palpable pedal pulses and has 1+ edema on the left and trace edema on the right with no hemosiderin deposition. She has no wound breakdown. Neurologically she is awake alert oriented. She has no asterixis. Assessment/plan: Enlarging right pleural effusion. I agree with gastroenterology and this may well be due to hepatic hydrothorax. In addition her chronic renal insufficiency is been exacerbated. At room air she was 94%. I certainly would not chest tube or an indwelling pleural catheter into this patient however, if her symptoms warrant we can do a diagnostic and therapeutic thoracentesis, however the problem with continuously draining a patient with hepatic hydrothorax is that it never stops. At this point, unless her symptoms warrant it, I would hold off intervening in her chest. She feels subjectively much better since her paracentesis.
--- NOTE | 2016-10-24 17:11 | Progress Note ---
Internal Med Progress Note Date of Service: Oct 24, 2016. Provider Documentation: SUBJECTIVE: The patient was seen and examined S/P Paracentesis SOB is a little better Feels tired OBJECTIVE: Vital Signs-as noted below Exam: General-No distress at rest Eyes-Normal ENT-normal Neck-supple Lungs-decreased breath sound bilateral at the bases ,right more than the left Heart-Regular,no murmur Abdomen-Distended,soft,bowel sound present Extremities-Trace edema bilaterally Neuro-AAOx3 Lab data as noted below. CT of The Abdomen and Pelvis:: IMPRESSION: 1. Interval passage of the previously identified 3 mm distal left ureteral calculus 2. Punctate nonobstructing left renal calculi 3. No evidence of bowel obstruction. No evidence of free air 4. Increasing moderate right pleural effusion 5. Stable moderate ascites 6. Cirrhotic morphology of the liver. Upper abdominal varices. 7. Large hiatal hernia ASSESSMENT & PLAN: ASCITES, PLEURAL EFFUSION, HX MORRISON W/ VARICES Patient presenting with increasing shortness of breath; as an outpatient Lasix was increased a couple of weeks ago that resulted in worsening renal function CT today showing moderate ascites and pleural effusion - both due to MORRISON 10/23 - 2L ascites removal via paracentesis:NO evidence SBP US to quantify effusion >600mls effusion -does not need to be drained as per Thoracic Surgery Appreciate GI input ROSANGELA ON CKD STAGE IV Prior baseline creat ran in the high 1's, now up to the mid 2's Nephrology Consulted Monitor Renal function DIARRHEA Chronic for the past 6 months Check stool studies-culture pending C Diff -negative HIATAL HERNIA has been evaluated by CT surgery who said she was not a good candidate for repair due to varices HTN - BP controlled, continue amlodipine DEPRESSION / ANXIETY - continue fluoxetine and buspirone HLD - continue statin DVT PROPHYLAXIS - SCDs due to esophageal varices CODE STATUS - Patient is a full code as per my discussion with her. DISPO - In my clinical judgment this beneficiary meets acute admission criteria, established by [facility], that includes being hospitalized through two midnights. -likely discharge home Vital Signs: Date Time Temp Pulse Resp B/P (MAP) Pulse Ox O2 Delivery O2 Flow Rate FiO2 10/24/16 16:11 Room Air 10/24/16 15:14 36.4 88 19 145/74 (97) 95 Room Air 10/24/16 12:20 90 16 148/81 (103) 95 Room Air 10/24/16 08:00 Room Air 10/24/16 07:12 36.8 86 18 121/68 (85) 93 Room Air 10/24/16 05:50 36.6 84 18 119/65 (83) 93 Room Air 10/24/16 03:00 36.7 79 16 126/62 (83) 93 Room Air 10/24/16 01:50 36.8 82 18 122/64 (83) 94 Room Air 10/23/16 23:45 Room Air 10/23/16 23:17 36.7 87 16 144/72 (96) 95 Room Air 10/23/16 17:55 36.5 87 16 147/78 94 Room Air Lab Results: Results Past 24 Hours Test 10/23/16 19:02 10/23/16 21:00 10/24/16 04:25 10/24/16 06:05 Range/Units Procalcitonin 1.46 0-0.5 ng/ml Bedside Glucose 110 70-90 mg/dl White Blood Count 11.62 4.8-10.8 K/uL Red Blood Count 3.56 4.2-5.4 M/uL Hemoglobin 10.1 12.0-16.0 g/dL Hematocrit 31.5 37-47 % Mean Corpuscular Volume 88.5 80-100 fL Mean Corpuscular Hemoglobin 28.4 25-34 pg Mean Corpuscular Hemoglobin Concent 32.1 32-36 g/dl RDW Standard Deviation 64.9 36.4-46.3 fL RDW Coefficient of Variation 20.1 11.5-14.5 % Platelet Count 112 130-400 K/uL Mean Platelet Volume 10.3 7.4-10.4 fL Sodium Level 142 136-145 mmol/L Potassium Level 4.1 3.5-5.1 mmol/L Chloride Level 110 98-107 mmol/L Carbon Dioxide Level 24 21-32 mmol/L Anion Gap 8.0 3-11 mmol/L Blood Urea Nitrogen 39 7-18 mg/dl Creatinine 2.70 0.60-1.20 mg/dl Est Creatinine Clear Calc Drug Dose 16.8 ml/min Estimated GFR () 19.1 Estimated GFR (Non- 16.5 BUN/Creatinine Ratio 14.4 10-20 Random Glucose 122 70-99 mg/dl Calcium Level 8.6 8.5-10.1 mg/dl Total Bilirubin 1.2 0.2-1 mg/dl Aspartate Amino Transf (AST/SGOT) 70 15-37 U/L Alanine Aminotransferase (ALT/SGPT) 31 12-78 U/L Alkaline Phosphatase 145 45-117 U/L Total Protein 6.2 6.4-8.2 gm/dl Albumin 2.6 3.4-5.0 gm/dl Globulin 3.6 2.5-4.0 gm/dl Albumin/Globulin Ratio 0.7 0.9-2 Test 10/24/16 07:40 10/24/16 11:28 Range/Units Bedside Glucose 119 150 70-90 mg/dl Microbiology Results 10/24/16 C.difficile Toxin B Gene (PCR) - Final, Complete No C. difficile toxin B gene detected 10/24/16 Shiga Toxin Test, Received Pending 10/24/16 Stool Culture, Received Pending
--- NOTE | 2016-10-24 17:33 | Nephrology Consultation ---
Nephrology Consultation Date of Consultation: Oct 24, 2016. Attending Physician: Deloris Reason for Consultation: arturo History of Present Illness Patient is a 76 year old female with NAFLD with underlying ascites and varices with ckd stage 3 with creatinine of 1.7 at baseline and worsened into the mid 2s in setting of higher doses of lasix. pt feels weak. has more sob. has worsening abdominal distention. sent to the ER earlier in the week and given a liter of fluids and creatinine unchanged. pt underwent a paracentesis on day of admission. holding diuretics and giving albumin. pt breathing better today after paracentesis but overall is very tired. Past Medical/Surgical History Medical Problems: (1) Acute on chronic renal insufficiency Status: Acute (2) Epigastric abdominal pain Status: Acute (3) Hiatal hernia Status: Acute (4) Nausea Status: Acute (5) Ureterolithiasis Status: Acute CKD stage 3/4 with creatinine of 1.8 baseline hiatal hernia nephrolithiasis nafld Family History Cardiac disorder MOTHER FH: cancer FATHER (lung CA) Social History Smoking Status: Never Smoker Alcohol Use: none Drug Use: none Marital Status: Housing Status: lives with family Allergies Coded Allergies: Erythromycin (Unverified Allergy, Mild, STOMACH PAIN, 10/23/16) Butorphanol (Unverified Allergy, Unknown, LOOPY, 10/23/16) Medications Current Inpatient Medications Medications (Trade) Dose Ordered Sig/Edilson Route Start Time Stop Time Status Last Admin Dose Admin Cholestyramine Resin (Questran Powder Light) 4 gm BID@ PO 10/23/16 22:00 11/22/16 21:59 10/24/16 09:43 4 GM Loperamide HCl (Imodium Cap) 2 mg TID PRN PO 10/23/16 15:45 11/22/16 15:44 10/24/16 10:54 2 MG Acetaminophen (Tylenol Tab) 650 mg Q4H PRN PO 10/23/16 15:45 11/22/16 15:44 Ondansetron HCl (Zofran Inj) 4 mg Q6H PRN IV 10/23/16 15:45 11/22/16 15:44 10/24/16 09:43 4 MG Albumin Human (Albumin 25%) 12.5 gm Q6H IV 10/23/16 18:00 10/26/16 17:59 10/24/16 12:23 12.5 GM Amlodipine Besylate (Norvasc Tab) 2.5 mg DAILY PO 10/24/16 08:00 11/23/16 08:59 10/24/16 08:48 2.5 MG Atorvastatin Calcium (Lipitor Tab) 10 mg HS PO 10/23/16 21:00 11/22/16 20:59 10/23/16 20:22 10 MG Fluoxetine HCl (Prozac Cap) 60 mg DAILY PO 10/24/16 08:00 11/23/16 08:59 10/24/16 08:49 60 MG Fluticasone Propionate (Flovent Hfa 110MCG Inhaler) 2 puffs BID INH 10/23/16 20:00 11/22/16 20:59 10/24/16 08:50 2 PUFFS Pantoprazole Sodium (Protonix Tab) 40 mg DAILY PO 10/24/16 08:00 11/23/16 08:59 10/24/16 08:47 40 MG Buspirone HCl (Buspar Tab) 10 mg TID PO 10/23/16 20:00 11/22/16 19:59 10/24/16 15:07 10 MG Multivitamins/ Minerals (Multivitamin W/ Minerals Tab) 1 tab DAILY PO 10/24/16 08:00 11/23/16 07:59 Home Meds and Scripts Medications Dose Route/Sig Max Daily Dose Days Date Category Dose Instructions Norvasc (Amlodipine Besylate) 2.5 Mg Tab 2.5 Mg PO DAILY 10/23/16 Reported Protonix (Pantoprazole Sodium) 40 Mg Tab 40 Mg PO DAILY 10/23/16 Reported Flovent Hfa (Fluticasone Propionate) 120 Puffs/80819 Mcg Aero 2 Puffs INH BID 30 10/23/16 Reported Lasix (Furosemide) 20 Mg Tab 20 Mg PO DAILY 10/23/16 Reported Loperamide Hcl 2 Mg Tab 2 Mg PO UD PRN 10/23/16 Reported Ventolin Hfa (Albuterol) 60 Puffs/5400 Mcg Aers 2 Puffs INH Q4 PRN 09/05/16 Reported Icaps (Multiple Vitamins W/ Minerals) 1 Cap Cap 1 Cap PO DAILY 09/05/16 Reported Hm Lutein (Lutein) 20 Mg Cap 20 Mg PO DAILY 09/05/16 Reported Prozac (Fluoxetine HCl) 20 Mg Cap 20 Mg PO DAILY 09/05/16 Reported WITH 40MG CAPS Lipitor (Atorvastatin Calcium) 10 Mg Tab 10 Mg PO HS 09/05/16 Reported Buspirone Hcl 10 Mg Tab 10 Mg PO TID 09/05/16 Reported Prozac (Fluoxetine HCl) 40 Mg Cap 40 Mg PO DAILY 09/05/16 Reported WITH 20MG CAPS Zofran (Ondansetron HCl) 4 Mg Tab 4 Mg PO Q6H PRN 09/05/16 Reported Review of Systems Constitutional: + fatigue, No fever, No chills ENT: No hearing loss Respiratory: + shortness of breath Cardiac: + edema Abdomen: + nausea, No vomiting Female : No dysuria Neuro: + weakness Endo: + fatigue all other review of systems otherwise negative Physical Exam Date Time Temp Pulse Resp B/P (MAP) Pulse Ox O2 Delivery O2 Flow Rate FiO2 10/24/16 16:11 Room Air 10/24/16 15:14 36.4 88 19 145/74 (97) 95 Room Air 10/24/16 12:20 90 16 148/81 (103) 95 Room Air 10/24/16 08:00 Room Air 10/24/16 07:12 36.8 86 18 121/68 (85) 93 Room Air 10/24/16 05:50 36.6 84 18 119/65 (83) 93 Room Air 10/24/16 03:00 36.7 79 16 126/62 (83) 93 Room Air 10/24/16 01:50 36.8 82 18 122/64 (83) 94 Room Air 10/23/16 23:45 Room Air 10/23/16 23:17 36.7 87 16 144/72 (96) 95 Room Air 10/23/16 17:55 36.5 87 16 147/78 94 Room Air 24-Hour Column 10/25/16 08:00 Intake Total 260 ml Balance 260 ml General Appearance: + mild distress Eyes: normal inspection ENT: normal ENT inspection Neck: supple Respiratory/Chest: + decreased breath sounds Cardiovascular: regular rate, rhythm Abdomen: + distended Extremities: + pedal edema 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, no motor/sensory deficits, alert Skin: normal color Diagnostics Last 24 Hours Test 10/23/16 19:02 10/23/16 21:00 10/24/16 04:25 10/24/16 06:05 Procalcitonin 1.46 ng/ml Bedside Glucose 110 mg/dl White Blood Count 11.62 K/uL Red Blood Count 3.56 M/uL Hemoglobin 10.1 g/dL Hematocrit 31.5 % Mean Corpuscular Volume 88.5 fL Mean Corpuscular Hemoglobin 28.4 pg Mean Corpuscular Hemoglobin Concent 32.1 g/dl RDW Standard Deviation 64.9 fL RDW Coefficient of Variation 20.1 % Platelet Count 112 K/uL Mean Platelet Volume 10.3 fL Sodium Level 142 mmol/L Potassium Level 4.1 mmol/L Chloride Level 110 mmol/L Carbon Dioxide Level 24 mmol/L Anion Gap 8.0 mmol/L Blood Urea Nitrogen 39 mg/dl Creatinine 2.70 mg/dl Est Creatinine Clear Calc Drug Dose 16.8 ml/min Estimated GFR () 19.1 Estimated GFR (Non- 16.5 BUN/Creatinine Ratio 14.4 Random Glucose 122 mg/dl Calcium Level 8.6 mg/dl Total Bilirubin 1.2 mg/dl Aspartate Amino Transf (AST/SGOT) 70 U/L Alanine Aminotransferase (ALT/SGPT) 31 U/L Alkaline Phosphatase 145 U/L Total Protein 6.2 gm/dl Albumin 2.6 gm/dl Globulin 3.6 gm/dl Albumin/Globulin Ratio 0.7 Test 10/24/16 07:40 10/24/16 11:28 Bedside Glucose 119 mg/dl 150 mg/dl Assessment & Plan arturo on ckd stage 3 with baseline creatinine of 1.8 and has worsened into the mid 2s in the setting of liver disease/volume overload/titration up of diuretics. underwent paracentesis yesterday. on albumin. holding diuretics. creatinine not improved and still 2.7. checking random urine sodium. serum albumin temporarily improving with the iv albumin. question if there is an element of hepatorenal syndrome. chekcing urine sodium. for now, giving albumin and holding diuretics. 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 creatinine may need to be higher to allow for more comfort in terms of her volume overload and sob. likely will need diuretics increased as an output and as a consequence will need to settle for a higher creatinine. for now, hodling diuretics and follow creatinine trend. case discussed with JACQUELINE Da Silva.
[2016-10-24] MEDS: ATORVASTATIN 10 MG TAB PO SCH (21:37)
[2016-10-25] VITALS (7 sets, daily range): BP systolic 117–148; BP diastolic 61–75; PULSE 76–86; TEMP 36.8–37.2; O2SAT 92–95
[2016-10-25] MEDS: ALBUMIN HUMAN 25% 12.5 GM/50 ML VIAL IV SCH ×4 (06:00→23:42)
[2016-10-25 06:53] LABS: MEAN CELL VOLUME 89.6 fL (80-100); MEAN CORPUSCULAR HEMOGLOBIN 29.5 pg (25-34); MEAN CORPUSCULAR HGB CONC 32.9 g/dl (32-36); MEAN PLATELET VOLUME 11.4 fL (7.4-10.4); PLATELET COUNT 111 K/uL (130-400); RED BLOOD COUNT 3.46 M/uL (4.2-5.4); WHITE BLOOD COUNT 11.39 K/uL (4.8-10.8)
[2016-10-25 07:26] LABS: BUN/CREATININE RATIO 14.2 (10-20); CALCIUM 8.6 mg/dl (8.5-10.1); CREATININE 2.4 mg/dl (0.60-1.20); MAGNESIUM 2.1 mg/dl (1.8-2.4); PHOSPHORUS 2.3 mg/dl (2.5-4.9); POTASSIUM 4.4 mmol/L (3.5-5.1)
[2016-10-25] MEDS: PANTOprazole SOD 40 MG TAB PO SCH (08:41)
[2016-10-25] MEDS: CEROVITE ADV FORMULA TAB PO SCH (08:41)
[2016-10-25] MEDS: AMLODIPINE BESYLATE 5 MG TAB PO SCH (08:42)
[2016-10-25] MEDS: FLUOXETINE HCL 20 MG CAP PO SCH (08:43)
[2016-10-25] MEDS: FLUTICASONE HFA 110MCG INHALER INH SCH ×2 (08:43→21:12)
--- NOTE | 2016-10-25 10:21 | DIAGNOSTIC IMAGING REPORT ---
CHEST 2 VIEWS ROUTINE CLINICAL HISTORY: 76 years-old Female presenting with pleural effusion . TECHNIQUE: PA and lateral views of the chest were obtained. COMPARISON: 10/23/2016. FINDINGS: Atherosclerosis of the aortic arch. Mildly prominent cardiac silhouette. Eventration of the left hemidiaphragm with hiatal hernia again noted. Minimal left basilar opacity likely atelectasis. Small bilateral pleural effusion present. No pneumothorax. Osseous structures normal. Cholecystectomy clips noted. IMPRESSION: 1. Small bilateral pleural effusions with left basilar atelectasis. Electronically signed by: River Maguire M.D. 10/25/2016 10:20 AM Dictated Date/Time: 10/25/2016 10:17 AM
--- NOTE | 2016-10-25 10:41 | Gastroenterology Progress Note ---
Progress Note Date of Service: Oct 25, 2016 Subjective Pt evaluation today including: conversation w/ patient, physical exam, chart review, lab review, review of inpatient medication list Pt still having some SOB, states not much improved as when she was admitted. Formed BM this AM, no n/v. She admits to feeling depressed since she has many stressors at home and also had been dealing w her illness. Is willing to see someone from psychiatry. Review of Systems Constitutional: No fever, No chills Respiratory: + shortness of breath, No cough Cardiac: No chest pain, No edema Abdomen: No pain, No nausea, No vomiting Psych: + depression symptoms Medications Current Inpatient Medications Medications (Trade) Dose Ordered Sig/Edilson Route Start Time Stop Time Status Last Admin Dose Admin Cholestyramine Resin (Questran Powder Light) 4 gm BID@ PO 10/23/16 22:00 11/22/16 21:59 10/24/16 21:37 4 GM Loperamide HCl (Imodium Cap) 2 mg TID PRN PO 10/23/16 15:45 11/22/16 15:44 10/24/16 10:54 2 MG Acetaminophen (Tylenol Tab) 650 mg Q4H PRN PO 10/23/16 15:45 11/22/16 15:44 Ondansetron HCl (Zofran Inj) 4 mg Q6H PRN IV 10/23/16 15:45 11/22/16 15:44 10/24/16 09:43 4 MG Albumin Human (Albumin 25%) 12.5 gm Q6H IV 10/23/16 18:00 10/26/16 17:59 10/25/16 06:00 12.5 GM Amlodipine Besylate (Norvasc Tab) 2.5 mg DAILY PO 10/24/16 08:00 11/23/16 08:59 10/25/16 08:42 2.5 MG Atorvastatin Calcium (Lipitor Tab) 10 mg HS PO 10/23/16 21:00 11/22/16 20:59 10/24/16 21:37 10 MG Fluoxetine HCl (Prozac Cap) 60 mg DAILY PO 10/24/16 08:00 11/23/16 08:59 10/25/16 08:43 60 MG Fluticasone Propionate (Flovent Hfa 110MCG Inhaler) 2 puffs BID INH 10/23/16 20:00 11/22/16 20:59 10/25/16 08:43 2 PUFFS Pantoprazole Sodium (Protonix Tab) 40 mg DAILY PO 10/24/16 08:00 11/23/16 08:59 10/25/16 08:41 40 MG Buspirone HCl (Buspar Tab) 10 mg TID PO 10/23/16 20:00 11/22/16 19:59 10/25/16 08:41 10 MG Multivitamins/ Minerals (Multivitamin W/ Minerals Tab) 1 tab DAILY PO 10/24/16 08:00 11/23/16 07:59 10/25/16 08:41 1 TAB Objective Vital Signs Date Time Temp Pulse Resp B/P (MAP) Pulse Ox O2 Delivery O2 Flow Rate FiO2 10/25/16 08:00 Room Air 10/25/16 07:14 36.9 86 18 148/70 (96) 93 Room Air 10/25/16 07:06 36.8 83 18 135/71 (92) 94 Room Air 10/25/16 00:00 Room Air 10/24/16 23:07 36.7 80 18 133/76 (95) 93 Room Air 10/24/16 20:00 Room Air 10/24/16 17:41 36.8 86 18 150/74 (99) 94 Room Air 10/24/16 16:11 Room Air 10/24/16 15:14 36.4 88 19 145/74 (97) 95 Room Air 10/24/16 12:20 90 16 148/81 (103) 95 Room Air Physical Exam General Appearance: WD/WN, no apparent distress Eyes: normal inspection, PERRL, EOMI Neck: supple, no JVD, trachea midline Respiratory/Chest: no respiratory distress, no accessory muscle use, + decreased breath sounds Cardiovascular: regular rate, rhythm, no gallop, no murmur Abdomen: normal bowel sounds, non tender, soft Extremities: + swelling (+1 pitting edema on legs) Neurologic/Psych: alert, oriented x 3, + depressed affect Skin: normal color, no jaundice, no rash Laboratory Results Last 24 Hours Test 10/24/16 11:28 10/24/16 16:35 10/24/16 20:12 10/24/16 22:00 Bedside Glucose 150 mg/dl 135 mg/dl 168 mg/dl Urine Random Sodium 20 mEq/L Test 10/25/16 06:27 White Blood Count 11.39 K/uL Red Blood Count 3.46 M/uL Hemoglobin 10.2 g/dL Hematocrit 31.0 % Mean Corpuscular Volume 89.6 fL Mean Corpuscular Hemoglobin 29.5 pg Mean Corpuscular Hemoglobin Concent 32.9 g/dl RDW Standard Deviation 66.4 fL RDW Coefficient of Variation 20.5 % Platelet Count 111 K/uL Mean Platelet Volume 11.4 fL Sodium Level 145 mmol/L Potassium Level 4.4 mmol/L Chloride Level 113 mmol/L Carbon Dioxide Level 24 mmol/L Anion Gap 8.0 mmol/L Blood Urea Nitrogen 34 mg/dl Creatinine 2.40 mg/dl Est Creatinine Clear Calc Drug Dose 19.1 ml/min Estimated GFR () 22.0 Estimated GFR (Non- 19.0 BUN/Creatinine Ratio 14.2 Random Glucose 132 mg/dl Calcium Level 8.6 mg/dl Phosphorus Level 2.3 mg/dl Magnesium Level 2.1 mg/dl Assessment and Plan Patient is a 76 year old female w 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 Cr also up from baseline 1.8 to 2.5 -> noted this from last week and suspected to maybe from diuretic increase. Still having some SOB, nausea improved, no vomiting, no diarrhea w BM this morning. She is feeling depressed due to stressors at home and chronic illness. Cr noted to be down to 2.4 10/23 - 2L ascites removal via paracentesis Plans - Appreciate Nephrology's help to manage diuretics, monitor renal function - Possible thoracentesis by CT sx today (R pleural effusion) -> deferred - Albumin 25% 12.5g q6hrs. - Check stool cx, Cdiff (-), giardia - Questran 4g BID, Imodium 2 tabs TID prn diarrhea. - Low salt, heart healthy diet. - Consult Psych for depression - Will continue to follow Late entry: Patient was seen and examined with June Perkins on 10/25. Her note reflects our findings and plan.
[2016-10-25] MEDS: CHOLESTYRAMINE LIGHT 4 GM PKT PO SCH ×2 (10:43→21:12)
--- NOTE | 2016-10-25 13:54 | Progress Note ---
Internal Med Progress Note Date of Service: Oct 25, 2016. Provider Documentation: SUBJECTIVE: The patient was seen and examined S/P Paracentesis SOB is a little better Feels tired Remains stable with no new symptoms OBJECTIVE: Vital Signs-as noted below Exam: General-No distress at rest Eyes-Normal ENT-normal Neck-supple Lungs-decreased breath sound bilateral at the bases No crackles Heart-Regular,no murmur Abdomen-Distended,soft,bowel sound present Extremities-Trace edema bilaterally Neuro-AAOx3 Lab data as noted below. CT of The Abdomen and Pelvis:: IMPRESSION: 1. Interval passage of the previously identified 3 mm distal left ureteral calculus 2. Punctate nonobstructing left renal calculi 3. No evidence of bowel obstruction. No evidence of free air 4. Increasing moderate right pleural effusion 5. Stable moderate ascites 6. Cirrhotic morphology of the liver. Upper abdominal varices. 7. Large hiatal hernia ASSESSMENT & PLAN: ASCITES, PLEURAL EFFUSION, HX MORRISON W/ VARICES Patient presenting with increasing shortness of breath; as an outpatient Lasix was increased a couple of weeks ago that resulted in worsening renal function CT today showing moderate ascites and pleural effusion - both due to MORRISON 10/23 - 2L ascites removal via paracentesis:NO evidence SBP US to quantify effusion >600mls effusion -does not need to be drained as per Thoracic Surgery Appreciate GI input Repeat CXR-pleural fluid is decreased/stable Continue current treatment ROSANGELA ON CKD STAGE IV Prior baseline creat ran in the high 1's, now up to the mid 2's Could have Hepatorenal syndrome Nephrology Consulted Monitor Renal function Getting Albumin and Lasix is on Hold DIARRHEA Chronic for the past 6 months Check stool [id number] C Diff -negative HIATAL HERNIA has been evaluated by CT surgery who said she was not a good candidate for repair due to varices HTN - BP controlled, continue amlodipine DEPRESSION / ANXIETY - continue fluoxetine and buspirone -psychiatry consulted HLD - continue statin DVT PROPHYLAXIS - SCDs due to esophageal varices CODE STATUS - Patient is a full code as per my discussion with her. DISPO - In my clinical judgment this beneficiary meets acute admission criteria, established by [facility], that includes being hospitalized through two midnights. -likely discharge home -discussed with the and Daughter -discussed about the disease process of Cirrhosis. -Lorena Albumin is causing fluid retention and Liver can not make it adequately and can not be supplied from outside source.Symptomatic management Vital Signs: Date Time Temp Pulse Resp B/P (MAP) Pulse Ox O2 Delivery O2 Flow Rate FiO2 10/25/16 11:42 82 16 131/61 (84) 95 Room Air 10/25/16 08:00 Room Air 10/25/16 07:14 36.9 86 18 148/70 (96) 93 Room Air 10/25/16 07:06 36.8 83 18 135/71 (92) 94 Room Air 10/25/16 00:00 Room Air 10/24/16 23:07 36.7 80 18 133/76 (95) 93 Room Air 10/24/16 20:00 Room Air 10/24/16 17:41 36.8 86 18 150/74 (99) 94 Room Air 10/24/16 16:11 Room Air 10/24/16 15:14 36.4 88 19 145/74 (97) 95 Room Air Lab Results: Results Past 24 Hours Test 10/24/16 16:35 10/24/16 20:12 10/24/16 22:00 10/25/16 06:27 Range/Units Bedside Glucose 135 168 70-90 mg/dl Urine Random Sodium 20 mEq/L White Blood Count 11.39 4.8-10.8 K/uL Red Blood Count 3.46 4.2-5.4 M/uL Hemoglobin 10.2 12.0-16.0 g/dL Hematocrit 31.0 37-47 % Mean Corpuscular Volume 89.6 80-100 fL Mean Corpuscular Hemoglobin 29.5 25-34 pg Mean Corpuscular Hemoglobin Concent 32.9 32-36 g/dl RDW Standard Deviation 66.4 36.4-46.3 fL RDW Coefficient of Variation 20.5 11.5-14.5 % Platelet Count 111 130-400 K/uL Mean Platelet Volume 11.4 7.4-10.4 fL Sodium Level 145 136-145 mmol/L Potassium Level 4.4 3.5-5.1 mmol/L Chloride Level 113 98-107 mmol/L Carbon Dioxide Level 24 21-32 mmol/L Anion Gap 8.0 3-11 mmol/L Blood Urea Nitrogen 34 7-18 mg/dl Creatinine 2.40 0.60-1.20 mg/dl Est Creatinine Clear Calc Drug Dose 19.1 ml/min Estimated GFR () 22.0 Estimated GFR (Non- 19.0 BUN/Creatinine Ratio 14.2 10-20 Random Glucose 132 70-99 mg/dl Calcium Level 8.6 8.5-10.1 mg/dl Phosphorus Level 2.3 2.5-4.9 mg/dl Magnesium Level 2.1 1.8-2.4 mg/dl Test 10/25/16 11:39 Range/Units Bedside Glucose 161 70-90 mg/dl
[2016-10-25 14:19] LABS: O&P GIARDIA AG NOT DETECTED (NOT DETECTED)
--- NOTE | 2016-10-25 14:48 | Progress Note ---
Progress Note Date of Service Oct 25, 2016. Progress Note Thoracic surgery progress note: Patient was seen this morning after eating breakfast. She states that she is a bit more short of breath and she was after her paracentesis. Her chest x- ray today shows her hiatal hernia. I was surprised that her CT scan from 2 days ago did not show much of her stomach in her chest. At any rate, she has very little in the way of pleural effusions on her chest x-ray today. Her subjective shortness of breath I believe has more to do with her ascites than her pleural effusions. Her oxygen saturation is 95% on room air. Having said that, I would be willing to do a thoracentesis under bedside ultrasound guidance , however the effects will be short lived. We will see how she looks in the morning.
--- NOTE | 2016-10-25 15:13 | Nephrology Progress Note ---
Nephrology Progress Note Date of Service: Oct 25, 2016. Subjective 76 yo female with liver disease with arturo on ckd in the setting of higher dose diuretics. diuretics on hold and on albumin now. not enough fluid to do thoracentesis. in room. pt not interested in dialysis if necessary. Objective Date Time Temp Pulse Resp B/P (MAP) Pulse Ox O2 Delivery O2 Flow Rate FiO2 10/25/16 11:42 82 16 131/61 (84) 95 Room Air 10/25/16 08:00 Room Air 10/25/16 07:14 36.9 86 18 148/70 (96) 93 Room Air 10/25/16 07:06 36.8 83 18 135/71 (92) 94 Room Air 10/25/16 00:00 Room Air 10/24/16 23:07 36.7 80 18 133/76 (95) 93 Room Air 10/24/16 20:00 Room Air 10/24/16 17:41 36.8 86 18 150/74 (99) 94 Room Air 10/24/16 16:11 Room Air 10/24/16 15:14 36.4 88 19 145/74 (97) 95 Room Air Physical Exam: General-aaox3 Eyes-no scleral icterus ENT-mmm Neck-supple Lungs-decreased breath sounds at bases Heart-rrr Abdomen-bs+ +distention Extremities-no c/c/e Neuro-nonfocal Current Inpatient Medications Medications (Trade) Dose Ordered Sig/Edilson Route Start Time Stop Time Status Last Admin Dose Admin Cholestyramine Resin (Questran Powder Light) 4 gm BID@, PO 10/23/16 22:00 11/22/16 21:59 10/25/16 10:43 4 GM Loperamide HCl (Imodium Cap) 2 mg TID PRN PO 10/23/16 15:45 11/22/16 15:44 10/24/16 10:54 2 MG Acetaminophen (Tylenol Tab) 650 mg Q4H PRN PO 10/23/16 15:45 11/22/16 15:44 Ondansetron HCl (Zofran Inj) 4 mg Q6H PRN IV 10/23/16 15:45 11/22/16 15:44 10/24/16 09:43 4 MG Albumin Human (Albumin 25%) 12.5 gm Q6H IV 10/23/16 18:00 10/26/16 17:59 10/25/16 11:42 12.5 GM Amlodipine Besylate (Norvasc Tab) 2.5 mg DAILY PO 10/24/16 08:00 11/23/16 08:59 10/25/16 08:42 2.5 MG Atorvastatin Calcium (Lipitor Tab) 10 mg HS PO 10/23/16 21:00 11/22/16 20:59 10/24/16 21:37 10 MG Fluoxetine HCl (Prozac Cap) 60 mg DAILY PO 10/24/16 08:00 11/23/16 08:59 10/25/16 08:43 60 MG Fluticasone Propionate (Flovent Hfa 110MCG Inhaler) 2 puffs BID INH 10/23/16 20:00 11/22/16 20:59 10/25/16 08:43 2 PUFFS Pantoprazole Sodium (Protonix Tab) 40 mg DAILY PO 10/24/16 08:00 11/23/16 08:59 10/25/16 08:41 40 MG Buspirone HCl (Buspar Tab) 10 mg TID PO 10/23/16 20:00 11/22/16 19:59 10/25/16 13:39 10 MG Multivitamins/ Minerals (Multivitamin W/ Minerals Tab) 1 tab DAILY PO 10/24/16 08:00 11/23/16 07:59 10/25/16 08:41 1 TAB Last 24 Hours Test 10/24/16 16:35 10/24/16 20:12 10/24/16 22:00 10/25/16 06:27 Bedside Glucose 135 mg/dl 168 mg/dl Urine Random Sodium 20 mEq/L White Blood Count 11.39 K/uL Red Blood Count 3.46 M/uL Hemoglobin 10.2 g/dL Hematocrit 31.0 % Mean Corpuscular Volume 89.6 fL Mean Corpuscular Hemoglobin 29.5 pg Mean Corpuscular Hemoglobin Concent 32.9 g/dl RDW Standard Deviation 66.4 fL RDW Coefficient of Variation 20.5 % Platelet Count 111 K/uL Mean Platelet Volume 11.4 fL Sodium Level 145 mmol/L Potassium Level 4.4 mmol/L Chloride Level 113 mmol/L Carbon Dioxide Level 24 mmol/L Anion Gap 8.0 mmol/L Blood Urea Nitrogen 34 mg/dl Creatinine 2.40 mg/dl Est Creatinine Clear Calc Drug Dose 19.1 ml/min Estimated GFR () 22.0 Estimated GFR (Non- 19.0 BUN/Creatinine Ratio 14.2 Random Glucose 132 mg/dl Calcium Level 8.6 mg/dl Phosphorus Level 2.3 mg/dl Magnesium Level 2.1 mg/dl Test 10/25/16 11:39 Bedside Glucose 161 mg/dl Assessment & Plan arturo on ckd stage 3 with baseline creatinine of 1.8 and has worsened into the mid 2s in the setting of liver disease/volume overload/titration up of diuretics. on albumin. creatinine slowly improving. urine sodium low and going to start midodrine and octreotide for possible HRS. continue the albumin. pt not interested in dialysis. concerned about her residential prognosis since creatinine worsened with mild increase in diuretics as an outpt. may have issues controlling her ascites and volume while still preserving kidney function.
--- NOTE | 2016-10-25 16:20 | Psychiatric Consultation ---
Consultation Date of Consultation Oct 25, 2016. Identifying Data 76 yo female admitted with MORRISON. Consult requested to evaluate depression. Information is obtained from the patient, her and the electronic medical record, and all considered to be reliable Chief Complaint "I just feel so sick. ". History of Present Illness 76-year-old woman with medical conditions including chronic kidney disease stage IV, type 2 diabetes, dyslipidemia, GERD, hypertension, nonalcoholic steatohepatitis with esophageal varices, is admitted to the hospital with increasing shortness of breath. Apparently she has been on Lasix for ascites which has worsened her renal condition. Lasix was reduced but she has continued to struggle with ascites leading to shortness of breath. We are consulted to evaluate depression. She admits that she has been increasingly depressed since April when her medical conditions started to worsen. She was diagnosed in August with MORRISON. She laments the fact that she gets up in the morning, is short of breath, feeling that she is unable to do anything she used to do. She says she has nothing to look forward to but an increase in the number of physicians visits and is now being asked if she would consider dialysis. She says that she told Dr. Seo that she would rather than consider dialysis. Her and her niece are at the bedside, and encouraged her to reconsider this. She admits that her chronic anxiety, which she started receiving treatment for many years ago through [facility], has worsened as well. She notes a very long chronic pattern of anxiety and at one point had panic attacks, but after being started on Prozac, the panic attacks stopped. She does not currently have any outpatient psychiatric support and has her medications refilled by her PCP. She admits that she has had thoughts of suicide but denies that she has ever had a plan or intent to follow through. She reports that she has felt physically ill with nausea, vomiting, shortness of breath. Today she rates her mood a 1 or 2 out of 10 with 10 being the best mood ever. She reports good sleep but poor appetite. She denies ever having had auditory or visual hallucinations. She denies any symptoms that would be congruent with a bipolar disorder. PHQ9=24 Past Psychiatric History Current OP Treatment: no current treatment Prior OP Treatment: psychiatrist Prior Psych Hospitalizations: none Access to a Gun: Yes Suicide Attempts: No Past Medication Trials Valium in her 30s Past Medical/Surgical History History of Concussion/Seizure: No (1) DM type 2 (diabetes mellitus, type 2) (2) Dyslipidemia (3) HTN (hypertension) (4) CKD (chronic kidney disease), stage IV (5) GERD (gastroesophageal reflux disease) (6) Varices, esophageal (7) Asthma (8) MORRISON (nonalcoholic steatohepatitis) Allergies Allergies: Coded Allergies: Erythromycin (Unverified Allergy, Mild, STOMACH PAIN, 10/23/16) Butorphanol (Unverified Allergy, Unknown, LOOPY, 10/23/16) Home Medications Scheduled Amlodipine (Norvasc), 2.5 MG PO DAILY Atorvastatin (Lipitor), 10 MG PO HS Buspirone Hcl (Buspirone Hcl), 10 MG PO TID Fluoxetine (Prozac), 40 MG PO DAILY Fluoxetine (Prozac), 20 MG PO DAILY Fluticasone Propionate (Flovent Hfa), 2 PUFFS INH BID Furosemide (Lasix), 20 MG PO DAILY Lutein (Hm Lutein), 20 MG PO DAILY Multiple Vitamins W/ Minerals (Icaps), 1 CAP PO DAILY Pantoprazole (Protonix), 40 MG PO DAILY Scheduled PRN Albuterol (Ventolin Hfa), 2 PUFFS INH Q4 PRN for SOB/Wheezing Loperamide Hcl (Loperamide Hcl), 2 MG PO UD PRN for Constipation Ondansetron Hcl (Zofran), 4 MG PO Q6H PRN for Nausea Family History Cardiac disorder MOTHER FH: cancer FATHER (lung CA) History of Suicide: No History of Substance Abuse: No Psychiatric History: Yes (Sr. with depression) Alcohol Use Alcohol Use In Past 12 Months: No Smoking Use Smoking Status: Never Smoker Substance History None Personal History Lives in: [facility]. Education: graduated from high school Work History: Retired. Ran a [employer] home. Relationship History: Children: 2 Spiritual Affiliation: Yazidi Legal History: none Psychological Trauma History: Denies Hx Traumatic Event Review of Systems Constitutional: malaise Eyes: denies: no symptoms, as stated in HPI, eye pain, tearing, itching, redness, discharge, double vision, visual changes, blurred vision, photophobia, other ENT: denies: no symptoms reported, see HPI, ear pain, ear discharge, loss of hearing, tinnitus, nasal pain, nasal congestion, rhinorrhea, epistaxis, sore throat, stidor, throat swelling, mouth pain, mouth swelling, dental pain, gum swelling, other Cardiovascular: denies: no symptoms reported, see HPI, chest pain, chest tightness, chest pressure, diaphoresis, palpitations, syncope, other Respiratory: reports: short of breath Gastrointestinal: denies no symptoms reported, denies see HPI, denies abdominal pain, denies constipation, denies diarrhea, denies nausea, denies vomiting, denies other Genitourinary - Female: denies: no symptoms, see HPI, rash, amenorrhea, dysmenorrhea, menorrhagia, metrorrhagia, , vaginal bleeding, vaginal itching, vaginal discharge, vulvadynia, other Musculoskeletal: denies no symptoms reported, denies see HPI, denies back pain , denies gout, denies joint pain, denies joint swelling, denies muscle pain, denies muscle stiffness, denies neck pain, denies other Integumentary: denies no symptoms reported, denies see HPI, denies change in color, denies change in hair/nails, denies dryness, denies lesions, denies lumps , denies rash, denies other Neurologic: denies: no symptoms, see HPI, headache, numbness, paresthesias, pre -existing deficit, seizure, tingling, tremors, general weakness, tics, focal weakness, vertigo, lethargy, memory loss, dizziness, other Endocrine: denies: no symptoms, as stated in HPI, cold intolerance, heat intolerance, hair changes, goiter, polydipsia, polyuria, skin changes, other Hematologic / Lymphatic: denies: no symptoms, as stated in HPI, abnormal clotting, adenopathy, anemia, easy bleeding, easy bruising, gums bleeding, petechiae, other Examination Physical Examination As per Dr. Seo Vital Signs Vital Signs Past 12 Hours Date Time Temp Pulse Resp B/P (MAP) Pulse Ox O2 Delivery O2 Flow Rate FiO2 10/25/16 11:42 82 16 131/61 (84) 95 Room Air 10/25/16 08:00 Room Air 10/25/16 07:14 36.9 86 18 148/70 (96) 93 Room Air 10/25/16 07:06 36.8 83 18 135/71 (92) 94 Room Air Laboratory Results Last 24 Hours Test 7/12/17 16:35 10/24/16 20:12 10/24/16 22:00 10/25/16 06:27 Bedside Glucose 135 mg/dl 168 mg/dl Urine Random Sodium 20 mEq/L White Blood Count 11.39 K/uL Red Blood Count 3.46 M/uL Hemoglobin 10.2 g/dL Hematocrit 31.0 % Mean Corpuscular Volume 89.6 fL Mean Corpuscular Hemoglobin 29.5 pg Mean Corpuscular Hemoglobin Concent 32.9 g/dl RDW Standard Deviation 66.4 fL RDW Coefficient of Variation 20.5 % Platelet Count 111 K/uL Mean Platelet Volume 11.4 fL Sodium Level 145 mmol/L Potassium Level 4.4 mmol/L Chloride Level 113 mmol/L Carbon Dioxide Level 24 mmol/L Anion Gap 8.0 mmol/L Blood Urea Nitrogen 34 mg/dl Creatinine 2.40 mg/dl Est Creatinine Clear Calc Drug Dose 19.1 ml/min Estimated GFR () 22.0 Estimated GFR (Non- 19.0 BUN/Creatinine Ratio 14.2 Random Glucose 132 mg/dl Calcium Level 8.6 mg/dl Phosphorus Level 2.3 mg/dl Magnesium Level 2.1 mg/dl Test 10/25/16 11:39 Bedside Glucose 161 mg/dl Mental Examination During interview pt is: alert and oriented, cooperative Appearance: appropriately groomed Eye contact is: good Motor behavior is: no abnormal motor movements Speech: normal in rate, rhythm & volume Affect: flat Mood is: depressed, anxious Thought process: goal directed Thought content: reality based without delusions Suicidal thought are: present, Plan: denied, Intent: denied Homicidal thoughts are: denied Hallucinations: denies auditory, denies visual Cognition: memory grossly intact, attention grossly intact, language grossly intact Intelligence estimated to be: average Insight: limited Judgement: limited Impression / Recommendations Impression 76-year-old with multiple medical problems including MORRISON, and renal failure, possibly facing dialysis. We are consulted to evaluate depression. Clearly the patient acknowledges worsening depression and anxiety in the context of her medical conditions. She is not wanting to consider dialysis, feeling overwhelmed with all that would be needed. I had a long discussion with she and her family about treating her anxiety and depression so that she can make the best decisions possible for herself, and not see her medical decisions through depression colored glasses. She agrees to have her Prozac increased 80 mg daily. I have suggested that she may want to return to proper psychiatric care post discharge in order to have her meds adjusted and she seems to be in agreement with this, but again is overwhelmed with having to add one more appointment to the roster. I've asked her to think about this and if she changes her mind and would like for us to establish her with an outpatient psychiatrist, we can do that prior to discharge. Although she has suicidal ideation, she denies plan or intent. I do not think she meets criteria for inpatient mental health treatment. 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 No dosage adjustment necessary in renal disease -I have suggested outpatient psychiatric follow-up. She will think about this. -She meets no criteria for inpatient mental health treatment at this time (2) Generalized anxiety disorder 10/25 -Increase Prozac as above -Encourage to think about outpatient psychiatric follow-up. Has been reviewed with Dr. Gregory Spicer
[2016-10-25] MEDS: MIDODRINE 2.5 MG TAB PO SCH (17:19)
[2016-10-25] MEDS: OCTREOTIDE ACETATE 100 MCG/ML VIAL SQ SCH (17:21)
[2016-10-25] MEDS: ATORVASTATIN 10 MG TAB PO SCH (21:12)
[2016-10-26] VITALS (7 sets, daily range): BP systolic 131–146; BP diastolic 65–80; PULSE 75–85; TEMP 36.6–37.2; O2SAT 92–93
[2016-10-26] MEDS: OCTREOTIDE ACETATE 100 MCG/ML VIAL SQ SCH ×3 (02:09→18:18)
[2016-10-26] MEDS: ALBUMIN HUMAN 25% 12.5 GM/50 ML VIAL IV SCH ×2 (06:03→12:20)
[2016-10-26 07:59] LABS: BUN/CREATININE RATIO 12.9 (10-20); CALCIUM 8.9 mg/dl (8.5-10.1); CREATININE 2.3 mg/dl (0.60-1.20); MAGNESIUM 2.2 mg/dl (1.8-2.4); PHOSPHORUS 2.2 mg/dl (2.5-4.9); POTASSIUM 4.3 mmol/L (3.5-5.1)
[2016-10-26] MEDS: CEROVITE ADV FORMULA TAB PO SCH (08:04)
[2016-10-26] MEDS: FLUTICASONE HFA 110MCG INHALER INH SCH ×2 (08:05→21:03)
[2016-10-26] MEDS: MIDODRINE 2.5 MG TAB PO SCH ×3 (08:05→17:18)
[2016-10-26] MEDS: PANTOprazole SOD 40 MG TAB PO SCH (08:05)
[2016-10-26] MEDS: FLUOXETINE HCL 20 MG CAP PO SCH (08:05)
[2016-10-26] MEDS: AMLODIPINE BESYLATE 5 MG TAB PO SCH (08:05)
--- NOTE | 2016-10-26 08:36 | Surgery Progress Note ---
Subjective Date of Service: Oct 26, 2016. No SOB reported this am. Objective Vitals Date Time Temp Pulse Resp B/P (MAP) Pulse Ox O2 Delivery O2 Flow Rate FiO2 10/26/16 07:29 36.9 75 16 144/78 (100) 92 Room Air 10/26/16 07:04 85 136/74 (94) 10/26/16 06:07 84 131/80 (97) 10/26/16 00:27 83 146/66 (92) 10/26/16 00:01 Room Air 10/25/16 23:49 36.8 79 18 117/65 (82) 93 Room Air 10/25/16 20:00 Room Air 10/25/16 18:41 84 18 133/73 (93) 94 Room Air 10/25/16 18:00 37.2 84 18 127/73 (91) 93 Room Air 10/25/16 16:20 36.8 76 18 126/75 (92) 92 Room Air 10/25/16 15:45 Room Air 10/25/16 11:42 82 16 131/61 (84) 95 Room Air Physical Exam General: + well developed, + well nourished, No distress CV: + RRR Pulmonary: No accessory muscle use, No respiratory distress Neurologic: + alert & oriented x 3 Assessment & Plan 76 year old female with right pleural effusion -pt.'s breathing improved after paracentesis -will hold on any thoracentesis at this time
--- NOTE | 2016-10-26 08:42 | Nephrology Progress Note ---
Nephrology Progress Note Date of Service: Oct 26, 2016. Subjective 76 yo female with liver disease with arturo on ckd in the setting of higher dose diuretics. diuretics on hold and on albumin and midodrine and octreotide. pt depressed this morning. although eating well. Objective Date Time Temp Pulse Resp B/P (MAP) Pulse Ox O2 Delivery O2 Flow Rate FiO2 10/26/16 07:29 36.9 75 16 144/78 (100) 92 Room Air 10/26/16 07:04 85 136/74 (94) 10/26/16 06:07 84 131/80 (97) 10/26/16 00:27 83 146/66 (92) 10/26/16 00:01 Room Air 10/25/16 23:49 36.8 79 18 117/65 (82) 93 Room Air 10/25/16 20:00 Room Air 10/25/16 18:41 84 18 133/73 (93) 94 Room Air 10/25/16 18:00 37.2 84 18 127/73 (91) 93 Room Air 10/25/16 16:20 36.8 76 18 126/75 (92) 92 Room Air 10/25/16 15:45 Room Air 10/25/16 11:42 82 16 131/61 (84) 95 Room Air Physical Exam: General-aaox3 Eyes-no scleral icterus ENT-mmm Neck-supple Lungs-decreased breath sounds at bases Heart-regular Abdomen-bs+ +distention Extremities-no c/c, +2 edema Neuro-nonfocal Current Inpatient Medications Medications (Trade) Dose Ordered Sig/Edilson Route Start Time Stop Time Status Last Admin Dose Admin Cholestyramine Resin (Questran Powder Light) 4 gm BID@ PO 10/23/16 22:00 11/22/16 21:59 10/25/16 21:12 4 GM Loperamide HCl (Imodium Cap) 2 mg TID PRN PO 10/23/16 15:45 11/22/16 15:44 10/24/16 10:54 2 MG Acetaminophen (Tylenol Tab) 650 mg Q4H PRN PO 10/23/16 15:45 11/22/16 15:44 Ondansetron HCl (Zofran Inj) 4 mg Q6H PRN IV 10/23/16 15:45 11/22/16 15:44 10/24/16 09:43 4 MG Albumin Human (Albumin 25%) 12.5 gm Q6H IV 10/23/16 18:00 10/26/16 17:59 10/26/16 06:03 12.5 GM Amlodipine Besylate (Norvasc Tab) 2.5 mg DAILY PO 10/24/16 08:00 11/23/16 08:59 10/26/16 08:05 2.5 MG Atorvastatin Calcium (Lipitor Tab) 10 mg HS PO 10/23/16 21:00 11/22/16 20:59 10/25/16 21:12 10 MG Fluticasone Propionate (Flovent Hfa 110MCG Inhaler) 2 puffs BID INH 10/23/16 20:00 11/22/16 20:59 10/26/16 08:05 2 PUFFS Pantoprazole Sodium (Protonix Tab) 40 mg DAILY PO 10/24/16 08:00 11/23/16 08:59 10/26/16 08:05 40 MG Buspirone HCl (Buspar Tab) 10 mg TID PO 10/23/16 20:00 11/22/16 19:59 10/26/16 08:05 10 MG Multivitamins/ Minerals (Multivitamin W/ Minerals Tab) 1 tab DAILY PO 10/24/16 08:00 11/23/16 07:59 10/26/16 08:04 1 TAB Midodrine (Proamatine Tab) 5 mg TID@08,,17 PO 10/25/16 17:00 11/24/16 16:59 10/26/16 08:05 5 MG Octreotide Acetate (Sandostatin Inj) 100 mcg Q8H SQ 10/25/16 18:00 11/24/16 17:59 10/26/16 02:09 100 MCG Fluoxetine HCl (Prozac Cap) 80 mg QAM PO 10/26/16 08:00 11/25/16 07:59 10/26/16 08:05 80 MG Potassium/ Phosphorus/Sodium (Phospha 250 Neutral 155-852-130 Mg) 1 tab QID PO 10/26/16 12:00 11/25/16 11:59 Last 24 Hours Test 10/25/16 11:39 10/25/16 16:29 10/26/16 07:03 Bedside Glucose 161 mg/dl 123 mg/dl Sodium Level 143 mmol/L Potassium Level 4.3 mmol/L Chloride Level 113 mmol/L Carbon Dioxide Level 21 mmol/L Anion Gap 9.0 mmol/L Blood Urea Nitrogen 30 mg/dl Creatinine 2.30 mg/dl Est Creatinine Clear Calc Drug Dose 19.9 ml/min Estimated GFR () 23.2 Estimated GFR (Non- 20.0 BUN/Creatinine Ratio 12.9 Random Glucose 133 mg/dl Calcium Level 8.9 mg/dl Phosphorus Level 2.2 mg/dl Magnesium Level 2.2 mg/dl Assessment & Plan arturo on ckd stage 3 with baseline creatinine of 1.8 and has worsened into the high 2s and improved to 2.3 off diuretics and on albumin/midodrine/octreotide. hypophos-phos is low and started on phosphate supplements. ESLD-need to restart diuretics to help control the volume. would restart lasix 40mg a day and follow creatinine. may need to accept a higher creatinine to balance volume status.
[2016-10-26] MEDS: CHOLESTYRAMINE LIGHT 4 GM PKT PO SCH ×2 (11:19→21:55)
--- NOTE | 2016-10-26 11:37 | Gastroenterology Progress Note ---
Progress Note Date of Service: Oct 26, 2016 Subjective Pt evaluation today including: conversation w/ patient, physical exam, chart review, lab review, review of inpatient medication list Pt reports having some TAVARES, wheezing last night but improved after sleeping. Denies n/v, no more loose stools. Denies abd pain, n/v. Review of Systems Constitutional: No fever, No chills Respiratory: + wheezing, + dyspnea on exertion, No cough Cardiac: No chest pain Abdomen: No pain, No nausea, No vomiting Psych: + depression symptoms Endo: + fatigue Medications Current Inpatient Medications Medications (Trade) Dose Ordered Sig/Edilson Route Start Time Stop Time Status Last Admin Dose Admin Cholestyramine Resin (Questran Powder Light) 4 gm BID@ PO 10/23/16 22:00 11/22/16 21:59 10/26/16 11:19 4 GM Loperamide HCl (Imodium Cap) 2 mg TID PRN PO 10/23/16 15:45 11/22/16 15:44 10/24/16 10:54 2 MG Acetaminophen (Tylenol Tab) 650 mg Q4H PRN PO 10/23/16 15:45 11/22/16 15:44 Ondansetron HCl (Zofran Inj) 4 mg Q6H PRN IV 10/23/16 15:45 11/22/16 15:44 10/24/16 09:43 4 MG Albumin Human (Albumin 25%) 12.5 gm Q6H IV 10/23/16 18:00 10/26/16 17:59 10/26/16 06:03 12.5 GM Amlodipine Besylate (Norvasc Tab) 2.5 mg DAILY PO 10/24/16 08:00 11/23/16 08:59 10/26/16 08:05 2.5 MG Atorvastatin Calcium (Lipitor Tab) 10 mg HS PO 10/23/16 21:00 11/22/16 20:59 10/25/16 21:12 10 MG Fluticasone Propionate (Flovent Hfa 110MCG Inhaler) 2 puffs BID INH 10/23/16 20:00 11/22/16 20:59 10/26/16 08:05 2 PUFFS Pantoprazole Sodium (Protonix Tab) 40 mg DAILY PO 10/24/16 08:00 11/23/16 08:59 10/26/16 08:05 40 MG Buspirone HCl (Buspar Tab) 10 mg TID PO 10/23/16 20:00 11/22/16 19:59 10/26/16 08:05 10 MG Multivitamins/ Minerals (Multivitamin W/ Minerals Tab) 1 tab DAILY PO 10/24/16 08:00 11/23/16 07:59 10/26/16 08:04 1 TAB Midodrine (Proamatine Tab) 5 mg TID@,, PO 10/25/16 17:00 11/24/16 16:59 10/26/16 08:05 5 MG Octreotide Acetate (Sandostatin Inj) 100 mcg Q8H SQ 10/25/16 18:00 11/24/16 17:59 10/26/16 11:19 100 MCG Fluoxetine HCl (Prozac Cap) 80 mg QAM PO 10/26/16 08:00 11/25/16 07:59 10/26/16 08:05 80 MG Potassium/ Phosphorus/Sodium (Phospha 250 Neutral 155-852-130 Mg) 1 tab QID PO 10/26/16 12:00 11/25/16 11:59 Furosemide (Lasix Tab) 40 mg QAM PO 10/27/16 08:00 11/26/16 07:59 Objective Vital Signs Date Time Temp Pulse Resp B/P (MAP) Pulse Ox O2 Delivery O2 Flow Rate FiO2 10/26/16 08:20 Room Air 10/26/16 07:29 36.9 75 16 144/78 (100) 92 Room Air 10/26/16 07:04 85 136/74 (94) 10/26/16 06:07 84 131/80 (97) 10/26/16 00:27 83 146/66 (92) 10/26/16 00:01 Room Air 10/25/16 23:49 36.8 79 18 117/65 (82) 93 Room Air 10/25/16 20:00 Room Air 10/25/16 18:41 84 18 133/73 (93) 94 Room Air 10/25/16 18:00 37.2 84 18 127/73 (91) 93 Room Air 10/25/16 16:20 36.8 76 18 126/75 (92) 92 Room Air 10/25/16 15:45 Room Air 10/25/16 11:42 82 16 131/61 (84) 95 Room Air Physical Exam General Appearance: WD/WN, no apparent distress Eyes: normal inspection, PERRL, EOMI Neck: supple, no JVD, trachea midline Respiratory/Chest: no respiratory distress, no accessory muscle use, + decreased breath sounds (RLL) Cardiovascular: regular rate, rhythm, no gallop, no murmur Abdomen: normal bowel sounds, non tender, soft Extremities: no calf tenderness, + swelling (Non pitting edema on legs) Neurologic/Psych: alert, oriented x 3, + depressed affect Skin: normal color, no jaundice, no rash Laboratory Results Last 24 Hours Test 10/25/16 11:39 10/25/16 16:29 10/26/16 07:03 Bedside Glucose 161 mg/dl 123 mg/dl Sodium Level 143 mmol/L Potassium Level 4.3 mmol/L Chloride Level 113 mmol/L Carbon Dioxide Level 21 mmol/L Anion Gap 9.0 mmol/L Blood Urea Nitrogen 30 mg/dl Creatinine 2.30 mg/dl Est Creatinine Clear Calc Drug Dose 19.9 ml/min Estimated GFR () 23.2 Estimated GFR (Non- 20.0 BUN/Creatinine Ratio 12.9 Random Glucose 133 mg/dl Calcium Level 8.9 mg/dl Phosphorus Level 2.2 mg/dl Magnesium Level 2.2 mg/dl Assessment and Plan Patient is a 76 year old female w 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 Cr also up from baseline 1.8 to 2.5 -> noted this from last week and suspected to maybe from diuretic increase. Still having some SOB, nausea improved, no vomiting, no diarrhea. She is feeling depressed due to stressors at home and chronic illness. Cr noted to be down to 2.3. Urine Na 20. She was started on Midodrine 5mg TID and Octreotide 100mcg q8hrs yesterday, also Lasix 40mg daily. 10/23 - 2L ascites removal via paracentesis Plans - Appreciate Nephrology's help to manage diuretics, monitor renal function - Possible thoracentesis by CT sx today (R pleural effusion) -> deferred - Albumin 25% 12.5g q6hrs. - Questran 4g BID, Imodium 2 tabs TID prn diarrhea. Stool studied negative. - Low salt, heart healthy diet. - Consult Psych for depression -> Prozac increased to 80mg daily - Will continue to follow; she is not ready for DC home today, anticipate DC over weekend or Saturday
[2016-10-26] MEDS: POT PHOSPHATE MONOBASIC W/ SOD TAB PO SCH ×3 (12:20→21:04)
--- NOTE | 2016-10-26 15:47 | Progress Note ---
Internal Med Progress Note Date of Service: Oct 26, 2016. Provider Documentation: SUBJECTIVE: The patient was seen and examined S/P Paracentesis SOB is a little better Does not feel well and not yet ready to be discharged OBJECTIVE: Vital Signs-as noted below Exam: General-No distress at rest Eyes-Normal ENT-normal Neck-supple Lungs-decreased breath sound bilateral at the bases No crackles Heart-Regular,no murmur Abdomen-Distended,soft,bowel sound present ,no masses Extremities-Trace edema bilaterally Neuro-AAOx3 Lab data as noted below. CT of The Abdomen and Pelvis:: IMPRESSION: 1. Interval passage of the previously identified 3 mm distal left ureteral calculus 2. Punctate nonobstructing left renal calculi 3. No evidence of bowel obstruction. No evidence of free air 4. Increasing moderate right pleural effusion 5. Stable moderate ascites 6. Cirrhotic morphology of the liver. Upper abdominal varices. 7. Large hiatal hernia ASSESSMENT & PLAN: ASCITES, PLEURAL EFFUSION, HX MORRISON W/ VARICES Patient presenting with increasing shortness of breath; as an outpatient Lasix was increased a couple of weeks ago that resulted in worsening renal function CT today showing moderate ascites and pleural effusion - both due to MORRISON 10/23 - 2L ascites removal via paracentesis:NO evidence SBP US to quantify effusion >600mls effusion -does not need to be drained as per Thoracic Surgery Appreciate GI input Repeat CXR-pleural fluid is decreased/stable Continue current treatment ROSANGELA ON CKD STAGE IV Prior baseline creat ran in the high 1's, now up to the mid 2's Could have Hepatorenal syndrome Nephrology Consulted Monitor Renal function Getting Albumin and Lasix is on Hold Renal function is a little better DIARRHEA Chronic for the past 6 months Check stool ilythtp-alpjudy-yakarokw C Diff -negative Settled HIATAL HERNIA has been evaluated by CT surgery who said she was not a good candidate for repair due to varices HTN - BP controlled, continue amlodipine DEPRESSION / ANXIETY - continue fluoxetine and buspirone -psychiatry consulted -appreciate input HLD - continue statin DVT PROPHYLAXIS - SCDs due to esophageal varices CODE STATUS - Patient is a full code as per my discussion with her. DISPO - In my clinical judgment this beneficiary meets acute admission criteria, established by [facility], that includes being hospitalized through two midnights. -likely discharge home -discussed with the and Daughter -discussed about the disease process of Cirrhosis. -Lorena Albumin is causing fluid retention and Liver can not make it adequately and can not be supplied from outside source.Symptomatic management Not yet ready to be discharged Will need to stay over the Week End Vital Signs: Date Time Temp Pulse Resp B/P (MAP) Pulse Ox O2 Delivery O2 Flow Rate FiO2 10/26/16 15:33 37.0 83 18 146/77 (100) 92 Room Air 10/26/16 12:21 36.6 82 18 131/75 (93) 93 Room Air 10/26/16 08:20 Room Air 10/26/16 07:29 36.9 75 16 144/78 (100) 92 Room Air 10/26/16 07:04 85 136/74 (94) 10/26/16 06:07 84 131/80 (97) 10/26/16 00:27 83 146/66 (92) 10/26/16 00:01 Room Air 10/25/16 23:49 36.8 79 18 117/65 (82) 93 Room Air 10/25/16 20:00 Room Air 10/25/16 18:41 84 18 133/73 (93) 94 Room Air 10/25/16 18:00 37.2 84 18 127/73 (91) 93 Room Air 10/25/16 16:20 36.8 76 18 126/75 (92) 92 Room Air 10/25/16 15:45 Room Air Lab Results: Results Past 24 Hours Test 10/25/16 16:29 10/26/16 07:03 Range/Units Bedside Glucose 123 70-90 mg/dl Sodium Level 143 136-145 mmol/L Potassium Level 4.3 3.5-5.1 mmol/L Chloride Level 113 98-107 mmol/L Carbon Dioxide Level 21 21-32 mmol/L Anion Gap 9.0 3-11 mmol/L Blood Urea Nitrogen 30 7-18 mg/dl Creatinine 2.30 0.60-1.20 mg/dl Est Creatinine Clear Calc Drug Dose 19.9 ml/min Estimated GFR () 23.2 Estimated GFR (Non- 20.0 BUN/Creatinine Ratio 12.9 10-20 Random Glucose 133 70-99 mg/dl Calcium Level 8.9 8.5-10.1 mg/dl Phosphorus Level 2.2 2.5-4.9 mg/dl Magnesium Level 2.2 1.8-2.4 mg/dl
[2016-10-26] MEDS: ATORVASTATIN 10 MG TAB PO SCH (21:55)
[2016-10-27] MEDS: OCTREOTIDE ACETATE 100 MCG/ML VIAL SQ SCH ×3 (02:11→18:10)
[2016-10-27] MEDS: ONDANSETRON INJ 2 MG/ML 2 ML VIAL IV PRN (06:29)
[2016-10-27 07:06] LABS: MEAN CELL VOLUME 89.6 fL (80-100); MEAN CORPUSCULAR HGB CONC 31.3 g/dl (32-36); MEAN PLATELET VOLUME 11.1 fL (7.4-10.4); PLATELET COUNT 115 K/uL (130-400); RED BLOOD COUNT 3.57 M/uL (4.2-5.4); WHITE BLOOD COUNT 12.77 K/uL (4.8-10.8)
[2016-10-27 07:32] LABS: CREATININE 2.1 mg/dl (0.60-1.20)
[2016-10-27 07:33] LABS: BUN/CREATININE RATIO 12.7 (10-20); CALCIUM 8.7 mg/dl (8.5-10.1); POTASSIUM 4.2 mmol/L (3.5-5.1)
[2016-10-27 07:36] VITALS: BP 152/82; PULSE 80; TEMP 36.6; O2SAT 94
[2016-10-27] MEDS: FUROSEMIDE 40 MG TAB PO SCH (08:45)
[2016-10-27] MEDS: FLUTICASONE HFA 110MCG INHALER INH SCH ×2 (08:45→20:21)
[2016-10-27] MEDS: CEROVITE ADV FORMULA TAB PO SCH (08:46)
[2016-10-27] MEDS: POT PHOSPHATE MONOBASIC W/ SOD TAB PO SCH ×4 (08:46→20:21)
[2016-10-27] MEDS: MIDODRINE 2.5 MG TAB PO SCH ×3 (08:46→17:35)
[2016-10-27] MEDS: AMLODIPINE BESYLATE 5 MG TAB PO SCH (08:46)
[2016-10-27] MEDS: PANTOprazole SOD 40 MG TAB PO SCH (08:46)
[2016-10-27] MEDS: FLUOXETINE HCL 20 MG CAP PO SCH (08:47)
[2016-10-27] MEDS: CHOLESTYRAMINE LIGHT 4 GM PKT PO SCH ×2 (10:00→20:21)
--- NOTE | 2016-10-27 14:31 | Progress Note ---
Internal Med Progress Note Date of Service: Oct 27, 2016. Provider Documentation: SUBJECTIVE: The patient was seen and examined S/P Paracentesis SOB is a little better Nauseous this Morning -more or less happens every morning OBJECTIVE: Vital Signs-as noted below Exam: General-No distress at rest Eyes-Normal ENT-normal Neck-supple Lungs-decreased breath sound bilateral at the bases No crackles Heart-Regular,no murmur Abdomen-Distended,soft,bowel sound present ,no masses Extremities-1+ edema bilaterally Neuro-AAOx3 Lab data as noted below. CT of The Abdomen and Pelvis:: IMPRESSION: 1. Interval passage of the previously identified 3 mm distal left ureteral calculus 2. Punctate nonobstructing left renal calculi 3. No evidence of bowel obstruction. No evidence of free air 4. Increasing moderate right pleural effusion 5. Stable moderate ascites 6. Cirrhotic morphology of the liver. Upper abdominal varices. 7. Large hiatal hernia ASSESSMENT & PLAN: ASCITES, PLEURAL EFFUSION, HX MORRISON W/ VARICES Patient presenting with increasing shortness of breath; as an outpatient Lasix was increased a couple of weeks ago that resulted in worsening renal function CT today showing moderate ascites and pleural effusion - both due to MORRISON 10/23 - 2L ascites removal via paracentesis:NO evidence SBP US to quantify effusion >600mls effusion -does not need to be drained as per Thoracic Surgery Appreciate GI input Repeat CXR-pleural fluid is decreased/stable Continue current treatment Clinically a little better Ambulating ROSANGELA ON CKD STAGE IV Prior baseline creat ran in the high 1's, now up to the mid 2's Could have Hepatorenal syndrome Nephrology Consulted Monitor Renal function Getting Albumin and Lasix is on Hold Renal function is improving DIARRHEA Chronic for the past 6 months Check stool hyywyjl-qztjadk-pspyyvco C Diff -negative Settled HIATAL HERNIA has been evaluated by CT surgery who said she was not a good candidate for repair due to varices HTN - BP controlled, continue amlodipine DEPRESSION / ANXIETY - continue fluoxetine and buspirone -psychiatry consulted -appreciate input HLD - continue statin DVT PROPHYLAXIS - SCDs due to esophageal varices CODE STATUS - Patient is a full code as per my discussion with her. DISPO - In my clinical judgment this beneficiary meets acute admission criteria, established by [facility], that includes being hospitalized through two midnights. -likely discharge home -discussed with the and Daughter -discussed about the disease process of Cirrhosis. -Lorena Albumin is causing fluid retention and Liver can not make it adequately and can not be supplied from outside source.Symptomatic management Likely home on Saturday Not yet ready to be discharged Will need to stay over the Week End Vital Signs: Date Time Temp Pulse Resp B/P (MAP) Pulse Ox O2 Delivery O2 Flow Rate FiO2 10/27/16 09:00 Room Air 10/27/16 07:36 36.6 80 18 152/82 (105) 94 Room Air 10/27/16 00:00 Room Air 10/26/16 23:08 37.2 79 18 132/65 (87) 93 Room Air 10/26/16 16:00 Room Air 10/26/16 15:33 37.0 83 18 146/77 (100) 92 Room Air Lab Results: Results Past 24 Hours Test 10/27/16 06:21 Range/Units White Blood Count 12.77 4.8-10.8 K/uL Red Blood Count 3.57 4.2-5.4 M/uL Hemoglobin 10.0 12.0-16.0 g/dL Hematocrit 32.0 37-47 % Mean Corpuscular Volume 89.6 80-100 fL Mean Corpuscular Hemoglobin 28.0 25-34 pg Mean Corpuscular Hemoglobin Concent 31.3 32-36 g/dl RDW Standard Deviation 68.1 36.4-46.3 fL RDW Coefficient of Variation 21.1 11.5-14.5 % Platelet Count 115 130-400 K/uL Mean Platelet Volume 11.1 7.4-10.4 fL Sodium Level 146 136-145 mmol/L Potassium Level 4.2 3.5-5.1 mmol/L Chloride Level 116 98-107 mmol/L Carbon Dioxide Level 23 21-32 mmol/L Anion Gap 7.0 3-11 mmol/L Blood Urea Nitrogen 27 7-18 mg/dl Creatinine 2.10 0.60-1.20 mg/dl Est Creatinine Clear Calc Drug Dose 21.8 ml/min Estimated GFR () 25.8 Estimated GFR (Non- 22.3 BUN/Creatinine Ratio 12.7 10-20 Random Glucose 140 70-99 mg/dl Calcium Level 8.7 8.5-10.1 mg/dl
[2016-10-27 15:57] VITALS: BP 107/65; PULSE 72; TEMP 36.7; O2SAT 93
[2016-10-27] MEDS: ATORVASTATIN 10 MG TAB PO SCH (20:21)
[2016-10-27 23:26] VITALS: BP 124/70; PULSE 75; TEMP 37; O2SAT 93
[2016-10-28] MEDS: OCTREOTIDE ACETATE 100 MCG/ML VIAL SQ SCH ×3 (03:16→17:18)
[2016-10-28 07:03] VITALS: BP 148/74; PULSE 77; TEMP 36.8; O2SAT 92
[2016-10-28] MEDS: AMLODIPINE BESYLATE 5 MG TAB PO SCH (08:08)
[2016-10-28] MEDS: POT PHOSPHATE MONOBASIC W/ SOD TAB PO SCH ×4 (08:08→20:30)
[2016-10-28] MEDS: PANTOprazole SOD 40 MG TAB PO SCH (08:09)
[2016-10-28] MEDS: FUROSEMIDE 40 MG TAB PO SCH (08:09)
[2016-10-28] MEDS: FLUOXETINE HCL 20 MG CAP PO SCH (08:09)
[2016-10-28] MEDS: CEROVITE ADV FORMULA TAB PO SCH (08:09)
[2016-10-28] MEDS: MIDODRINE 2.5 MG TAB PO SCH ×3 (08:10→17:17)
[2016-10-28] MEDS: FLUTICASONE HFA 110MCG INHALER INH SCH ×2 (08:10→20:30)
[2016-10-28] MEDS: CHOLESTYRAMINE LIGHT 4 GM PKT PO SCH ×2 (10:31→20:30)
--- NOTE | 2016-10-28 12:35 | Progress Note ---
Internal Med Progress Note Date of Service: Oct 28, 2016. Provider Documentation: SUBJECTIVE: The patient was seen and examined S/P Paracentesis SOB is much little better Ambulating well Will discharge home tomorrow OBJECTIVE: Vital Signs-as noted below Exam: General-No distress at rest Eyes-Normal ENT-normal Neck-supple Lungs-decreased breath sound bilateral at the bases No crackles Heart-Regular,no murmur Abdomen-Distended,soft,bowel sound present ,no masses Extremities-1+ edema bilaterally Neuro-AAOx3 Lab data as noted below. CT of The Abdomen and Pelvis:: IMPRESSION: 1. Interval passage of the previously identified 3 mm distal left ureteral calculus 2. Punctate nonobstructing left renal calculi 3. No evidence of bowel obstruction. No evidence of free air 4. Increasing moderate right pleural effusion 5. Stable moderate ascites 6. Cirrhotic morphology of the liver. Upper abdominal varices. 7. Large hiatal hernia ASSESSMENT & PLAN: ASCITES, PLEURAL EFFUSION, HX MORRISON W/ VARICES Patient presenting with increasing shortness of breath; as an outpatient Lasix was increased a couple of weeks ago that resulted in worsening renal function CT today showing moderate ascites and pleural effusion - both due to MORRISON 10/23 - 2L ascites removal via paracentesis:NO evidence SBP US to quantify effusion >600mls effusion -does not need to be drained as per Thoracic Surgery Appreciate GI input Repeat CXR-pleural fluid is decreased/stable Continue current treatment Clinically a much better Ambulating and wants to go home tomorrow ROSANGELA ON CKD STAGE IV Prior baseline creat ran in the high 1's, now up to the mid 2's Could have Hepatorenal syndrome Nephrology Consulted Monitor Renal function Getting Albumin and Lasix is on Hold Renal function is improving DIARRHEA Chronic for the past 6 months Check stool wrchrqj-yfusbuh-yxpiljgy C Diff -negative Settled HIATAL HERNIA has been evaluated by CT surgery who said she was not a good candidate for repair due to varices No acute symptoms HTN - BP controlled, continue amlodipine DEPRESSION / ANXIETY - continue fluoxetine and buspirone -psychiatry consulted -appreciate input HLD - continue statin DVT PROPHYLAXIS - SCDs due to esophageal varices CODE STATUS - Patient is a full code as per my discussion with her. DISPO - In my clinical judgment this beneficiary meets acute admission criteria, established by [facility], that includes being hospitalized through two midnights. -likely discharge home -discussed with the and Daughter -discussed about the disease process of Cirrhosis. -Phenix Albumin is causing fluid retention and Liver can not make it adequately and can not be supplied from outside source.Symptomatic management Likely home on Saturday Vital Signs: Date Time Temp Pulse Resp B/P (MAP) Pulse Ox O2 Delivery O2 Flow Rate FiO2 10/28/16 08:00 Room Air 10/28/16 07:03 36.8 77 16 148/74 (98) 92 Room Air 10/28/16 01:39 Room Air 10/27/16 23:26 37.0 75 16 124/70 (88) 93 Room Air 10/27/16 23:11 Room Air 10/27/16 16:00 Room Air 10/27/16 15:57 36.7 72 18 107/65 (79) 93 Room Air
[2016-10-28 15:17] VITALS: BP 130/72; PULSE 76; TEMP 36.8; O2SAT 95
[2016-10-28] MEDS: ATORVASTATIN 10 MG TAB PO SCH (20:30)
[2016-10-28 23:28] VITALS: BP 136/71; PULSE 78; TEMP 36.7; O2SAT 94
[2016-10-29] MEDS: OCTREOTIDE ACETATE 100 MCG/ML VIAL SQ SCH ×2 (03:00→10:13)
[2016-10-29 06:07] LABS: BUN/CREATININE RATIO 13.2 (10-20); CALCIUM 8.4 mg/dl (8.5-10.1); CREATININE 1.9 mg/dl (0.60-1.20); MAGNESIUM 1.9 mg/dl (1.8-2.4); POTASSIUM 4.3 mmol/L (3.5-5.1)
[2016-10-29 06:10] LABS: HEMATOCRIT 31.3 % (37-47); MEAN CELL VOLUME 91.5 fL (80-100); MEAN CORPUSCULAR HEMOGLOBIN 30.1 pg (25-34); MEAN CORPUSCULAR HGB CONC 32.9 g/dl (32-36); MEAN PLATELET VOLUME 12.4 fL (7.4-10.4); PLATELET COUNT 103 K/uL (130-400); PLT ESTIMATE DECREASED; RED BLOOD COUNT 3.42 M/uL (4.2-5.4); WHITE BLOOD COUNT 12.71 K/uL (4.8-10.8)
[2016-10-29 07:43] VITALS: BP 133/77; PULSE 78; TEMP 36.3; O2SAT 94
[2016-10-29] MEDS: FLUTICASONE HFA 110MCG INHALER INH SCH (08:06)
[2016-10-29] MEDS: FUROSEMIDE 40 MG TAB PO SCH (08:07)
[2016-10-29] MEDS: AMLODIPINE BESYLATE 5 MG TAB PO SCH (08:08)
[2016-10-29] MEDS: CEROVITE ADV FORMULA TAB PO SCH (08:08)
[2016-10-29] MEDS: MIDODRINE 2.5 MG TAB PO SCH ×2 (08:10→12:33)
[2016-10-29] MEDS: FLUOXETINE HCL 20 MG CAP PO SCH (08:11)
[2016-10-29] MEDS: PANTOprazole SOD 40 MG TAB PO SCH (08:11)
[2016-10-29] MEDS: POT PHOSPHATE MONOBASIC W/ SOD TAB PO SCH ×2 (08:44→12:32)
[2016-10-29] MEDS: CHOLESTYRAMINE LIGHT 4 GM PKT PO SCH (10:09)
--- NOTE | 2016-10-29 11:22 | Surgery Progress Note ---
Subjective Date of Service: Oct 29, 2016. Pt. notes she is currently not SOB and feels well. 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 for d/c home today -we will see her office in 2 weeks with repeat CXR
--- NOTE | 2016-10-29 11:26 | Progress Note ---
Internal Med Progress Note Date of Service: Oct 29, 2016. Provider Documentation: SUBJECTIVE: The patient was seen and examined S/P Paracentesis SOB is much better Ambulating well Denies any other symptoms OBJECTIVE: Vital Signs-as noted below Exam: General-No distress at rest Eyes-Normal ENT-normal Neck-supple Lungs-decreased breath sound bilateral at the bases No crackles Heart-Regular,no murmur Abdomen-Distended,soft,bowel sound present ,no masses Extremities-1+ edema bilaterally Neuro-AAOx3 Lab data as noted below. CT of The Abdomen and Pelvis:: IMPRESSION: 1. Interval passage of the previously identified 3 mm distal left ureteral calculus 2. Punctate nonobstructing left renal calculi 3. No evidence of bowel obstruction. No evidence of free air 4. Increasing moderate right pleural effusion 5. Stable moderate ascites 6. Cirrhotic morphology of the liver. Upper abdominal varices. 7. Large hiatal hernia ASSESSMENT & PLAN: ASCITES, PLEURAL EFFUSION, HX MORRISON W/ VARICES Patient presenting with increasing shortness of breath; as an outpatient Lasix was increased a couple of weeks ago that resulted in worsening renal function CT today showing moderate ascites and pleural effusion - both due to MORRISON 10/23 - 2L ascites removal via paracentesis:NO evidence SBP US to quantify effusion >600mls effusion -does not need to be drained as per Thoracic Surgery Appreciate GI input Repeat CXR-pleural fluid is decreased/stable Continue current treatment Clinically a much better Denies any symptoms Ready to be discharged today ROSANGELA ON CKD STAGE IV Prior baseline creat ran in the high 1's, now up to the mid 2's Could have Hepatorenal syndrome Nephrology Consulted Monitor Renal function Getting Albumin and Lasix is on Hold Renal function is improving but Much better today ,Creatinine 1.9 today DIARRHEA Chronic for the past 6 months Check stool lelqnof-smhpagu-ghabqtsp C Diff -negative Advised to take Imodium PRN HIATAL HERNIA has been evaluated by CT surgery who said she was not a good candidate for repair due to varices No acute symptoms HTN - BP controlled, continue amlodipine DEPRESSION / ANXIETY - continue fluoxetine and buspirone -psychiatry consulted -appreciate input HLD - continue statin DVT PROPHYLAXIS - SCDs due to esophageal varices CODE STATUS - Patient is a full code as per my discussion with her. DISPO - In my clinical judgment this beneficiary meets acute admission criteria, established by [facility], that includes being hospitalized through two midnights. -likely discharge home -discussed with the and Daughter -discussed about the disease process of Cirrhosis. -Low Albumin is causing fluid retention and Liver can not make it adequately and can not be supplied from outside source.Symptomatic management Discharge today Vital Signs: Date Time Temp Pulse Resp B/P (MAP) Pulse Ox O2 Delivery O2 Flow Rate FiO2 10/29/16 08:00 Room Air 10/29/16 07:43 36.3 78 18 133/77 (95) 94 Room Air 10/29/16 02:42 Room Air 10/28/16 23:28 36.7 78 16 136/71 (92) 94 Room Air 10/28/16 21:04 Room Air 10/28/16 16:00 Room Air 10/28/16 15:17 36.8 76 18 130/72 (91) 95 Room Air Lab Results: Results Past 24 Hours Test 10/29/16 05:17 Range/Units White Blood Count 12.71 4.8-10.8 K/uL Red Blood Count 3.42 4.2-5.4 M/uL Hemoglobin 10.3 12.0-16.0 g/dL Hematocrit 31.3 37-47 % Mean Corpuscular Volume 91.5 80-100 fL Mean Corpuscular Hemoglobin 30.1 25-34 pg Mean Corpuscular Hemoglobin Concent 32.9 32-36 g/dl RDW Standard Deviation 70.3 36.4-46.3 fL RDW Coefficient of Variation 21.1 11.5-14.5 % Platelet Count 103 130-400 K/uL Mean Platelet Volume 12.4 7.4-10.4 fL Platelet Estimate DECREASED Sodium Level 148 136-145 mmol/L Potassium Level 4.3 3.5-5.1 mmol/L Chloride Level 115 98-107 mmol/L Carbon Dioxide Level 26 21-32 mmol/L Anion Gap 7.0 3-11 mmol/L Blood Urea Nitrogen 25 7-18 mg/dl Creatinine 1.90 0.60-1.20 mg/dl Est Creatinine Clear Calc Drug Dose 24.1 ml/min Estimated GFR () 29.2 Estimated GFR (Non- 25.2 BUN/Creatinine Ratio 13.2 10-20 Random Glucose 139 70-99 mg/dl Calcium Level 8.4 8.5-10.1 mg/dl Magnesium Level 1.9 1.8-2.4 mg/dl
[2016-10-29] MEDS ORDERED: POTTAB2 PO (11:34)
[2016-10-29] MEDS ORDERED: PRMT25 PO (11:34)
[2016-10-29] MEDS ORDERED: QSTP PO (11:34)
--- NOTE | 2016-10-29 11:38 | Discharge Instructions ---
Discharge Instructions Date of Service Oct 29, 2016. Admission Reason for Admission: ROSANGELA Discharge Discharge Diagnosis / Problem: Ascites,Pleural effusion,Cirrhosis of Liver Discharge Goals Goal(s): Prevent Disease Progression Activity Recommendations Activity Limitations: resume your previous activity . Instructions / Follow-Up Instructions / Follow-Up Your PCP on 11/01/16 at 12:45 PM. GI and Thoracic surgery will call with appointment Current Hospital Diet Patient's current hospital diet: Low Sodium Diet (2gm Na), Renal Diet Discharge Diet Recommended Diet: Low Sodium Diet (2gm Na) Fluid Restriction: 1500 ml (6 cups) Pending Studies Studies pending at discharge: no Laboratory Results Hemoglobin A1c Test 09/06/16 08:30 Range/Units Estimated Average Glucose 146 mg/dl Hemoglobin A1c 6.7 H 4.5-5.6 % Medical Emergencies . Who to Call and When: Medical Emergencies: If at any time you feel your situation is an emergency, please call 911 immediately. . Non-Emergent Contact Non-Emergency issues call your: Primary Care Provider . Past History Medical & Surgical History: (1) Ascites of liver (2) Pleural effusion (3) Generalized anxiety disorder (4) DM type 2 (diabetes mellitus, type 2) (5) HTN (hypertension) (6) CKD (chronic kidney disease), stage IV (7) Asthma (8) MORRISON (nonalcoholic steatohepatitis) (9) H/O sinus surgery (10) S/p rectocele repair (11) History of hysterectomy (12) S/P cardiac cath (13) History of esophagogastroduodenoscopy (EGD) . "Provider Documentation" section prepared by Taz Puentes. . VTE Core Measure Inpt VTE Proph given/why not?: SCD's
[2016-10-29 13:31] VITALS: BP 133/77; PULSE 78; TEMP 36.3; O2SAT 94
--- NOTE | 2016-10-29 17:04 | Discharge Summary ---
Discharge Summary Date of Service Oct 29, 2016. Discharge Summary Admission Date: Oct 23, 2016 at 15:40 Discharge Date: Oct 29, 2016 Discharge Disposition: Home with services Principal Diagnosis: Ascites,Pleural effusion,Cirrhosis of Liver Secondary Diagnoses/Problems: Please see H&P and Hospital Progress note Consultations: GI and Nephrology Medication Reconciliation New Medications: Cholestyramine (Cholestyramine Light) 4 Gm Pack 4 GM PO BID@10,22 for 30 Days, #60 Midodrine (Midodrine HCl) 2.5 Mg Tab 5 MG PO TID@08,12,17 for 30 Days, #90 TAB Pot Phosphate Monobasic W/ Sod (Phospha 250 Neutral) 1 Tab Tab 1 TAB PO QID for 30 Days, #120 TAB Continued Medications: Albuterol (Ventolin Hfa) 60 Puffs/5400 Mcg Aers 2 PUFFS INH Q4 PRN for SOB/Wheezing Amlodipine (Norvasc) 2.5 Mg Tab 2.5 MG PO DAILY, TAB Atorvastatin (Lipitor) 10 Mg Tab 10 MG PO HS, TAB Buspirone Hcl (Buspirone Hcl) 10 Mg Tab 10 MG PO TID, TAB Fluoxetine (Prozac) 40 Mg Cap 80 MG PO DAILY, CAP WITH 20MG CAPS Fluticasone Propionate (Flovent Hfa) 120 Puffs/73421 Mcg Aero 2 PUFFS INH BID for 30 Days, #1 INHALER 2 Refills Furosemide (Lasix) 20 Mg Tab 40 MG PO DAILY, TAB Loperamide Hcl (Loperamide Hcl) 2 Mg Tab 2 MG PO UD PRN for Constipation Lutein (Hm Lutein) 20 Mg Cap 20 MG PO DAILY Multiple Vitamins W/ Minerals (Icaps) 1 Cap Cap 1 CAP PO DAILY Ondansetron Hcl (Zofran) 4 Mg Tab 4 MG PO Q6H PRN for Nausea, TAB Pantoprazole (Protonix) 40 Mg Tab 40 MG PO DAILY, #30 TAB Discontinued Medications: Fluoxetine (Prozac) 20 Mg Cap 20 MG PO DAILY, CAP WITH 40MG CAPS Admission Information HPI (per Admitting provider): 76 year old female who presents to the ER with shortness of breath. Patient was recently diagnosed with MORRISON a few months ago. A couple of weeks ago, her Lasix was increased from 20mg daily to 40mg daily to help manage ascites. Outpatient labs showed that her creatine went up to 2.5 from a high 1 baseline. She was evaluated in the ED and given IVF and discharged home, Lasix was then reduced back to 20mg daily. Despite these measures, creat remains elevated. Patient reports increasing shortness of breath. She feels as though her abdomen is becoming more distended and pushing on her lungs making it hard to breath. She denies cough or sputum production. No fever or chills. She does not feel as though she is drinking enough water. She denies chest pain, lightheadedness, dizziness, diaphoresis, or syncopal events. She reports chronic diarrhea for the past 6 months. Reports some occasional abdominal cramping before bowel movements otherwise denies abdominal pain. She sometimes has mild regurgitation after eating. She denies hematemesis, coffee ground emesis, BRBPR, or dark tarry stools. She denies urinary symptoms. In the ER, creat is 2.7. CT abd/ pelvis is showing a moderate amount of ascites and right pleural effusion. Past Medical/Surgical History Medical Problems: (1) Asthma Status: Chronic (2) CKD (chronic kidney disease), stage IV Status: Chronic (3) DM type 2 (diabetes mellitus, type 2) Status: Chronic (4) Dyslipidemia Status: Chronic (5) GERRY (generalized anxiety disorder) Status: Chronic (6) GERD (gastroesophageal reflux disease) Status: Chronic (7) HTN (hypertension) Status: Chronic (8) MORRISON (nonalcoholic steatohepatitis) Status: Chronic (9) Varices, esophageal Status: Chronic Surgical Problems: (1) H/O sinus surgery Status: Chronic (2) History of esophagogastroduodenoscopy (EGD) Permanent Comment: 09/07/16 - Grade II esophageal varices banded, GAVE, 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 HTN Status: Chronic (3) History of hysterectomy Status: Chronic (4) Hx of appendectomy Status: Resolved (5) S/P cardiac cath Status: Chronic (6) S/p rectocele repair Status: Chronic Family History Cardiac disorder MOTHER FH: cancer FATHER (lung CA) Social History Smoking Status: Never Smoker Alcohol Use: none Marital Status: Housing status: lives with significant other Immunizations History of Tetanus Vaccine?: Yes Tetanus Immunization Date: Feb 20, 2013 History of Pneumococcal: Yes Pneumococcal Date: Aug 02, 2015 History of Hepatitis B Vaccine: Yes Hepatitis Immunization Date: Oct 18, 2016 Allergies Coded Allergies: Erythromycin (Unverified Allergy, Mild, STOMACH PAIN, 10/23/16) Butorphanol (Unverified Allergy, Unknown, LOOPY, 10/23/16) Home Medications Scheduled Amlodipine (Norvasc), 2.5 MG PO DAILY Atorvastatin (Lipitor), 10 MG PO HS Buspirone Hcl (Buspirone Hcl), 10 MG PO TID Fluoxetine (Prozac), 40 MG PO DAILY Fluoxetine (Prozac), 20 MG PO DAILY Fluticasone Propionate (Flovent Hfa), 2 PUFFS INH BID Furosemide (Lasix), 20 MG PO DAILY Lutein (Hm Lutein), 20 MG PO DAILY Multiple Vitamins W/ Minerals (Icaps), 1 CAP PO DAILY Pantoprazole (Protonix), 40 MG PO DAILY Scheduled PRN Albuterol (Ventolin Hfa), 2 PUFFS INH Q4 PRN for SOB/Wheezing Loperamide Hcl (Loperamide Hcl), 2 MG PO UD PRN for Constipation Ondansetron Hcl (Zofran), 4 MG PO Q6H PRN for Nausea Review of Systems ROS per HPI, all other systems reviewed and negative Physical Ex - H&P Physical Exam Vital Signs Date Time Temp Pulse Resp B/P (MAP) Pulse Ox O2 Delivery O2 Flow Rate FiO2 10/23/16 17:55 36.5 87 16 147/78 94 Room Air 10/23/16 16:16 61 20 128/78 98 Room Air 10/23/16 14:31 91 20 128/66 97 Room Air 10/23/16 13:00 88 20 161/87 98 Room Air 10/23/16 12:39 97 Room Air 10/23/16 12:33 88 10/23/16 12:32 97 Room Air 10/23/16 11:40 36.6 97 18 134/60 95 General Appearance: no apparent distress Head: normocephalic Eyes: normal inspection ENT: hearing grossly normal Neck: supple, no JVD Respiratory/Chest: no respiratory distress, + decreased breath sounds (BL) Cardiovascular: regular rate, rhythm, no edema, normal peripheral pulses Abdomen/GI: normal bowel sounds, + distended (semi firm) Extremities/Musculoskelatal: normal inspection, no calf tenderness Neurologic/Psych: no motor/sensory deficits, alert, normal mood/affect, oriented x 3 Skin: normal color, warm/dry Diagnostics - H&P Diagnostics Laboratory Results Results Past 24 Hours Test 10/23/16 12:15 10/23/16 12:50 10/23/16 18:02 Range/Units White Blood Count 13.91 4.8-10.8 K/uL Red Blood Count 3.88 4.2-5.4 M/uL Hemoglobin 11.2 12.0-16.0 g/dL Hematocrit 33.9 37-47 % Mean Corpuscular Volume 87.4 80-100 fL Mean Corpuscular Hemoglobin 28.9 25-34 pg Mean Corpuscular Hemoglobin Concent 33.0 32-36 g/dl Platelet Count 166 130-400 K/uL Mean Platelet Volume 11.4 7.4-10.4 fL Neutrophils (%) (Auto) 81.0 % Lymphocytes (%) (Auto) 9.6 % Monocytes (%) (Auto) 8.6 % Eosinophils (%) (Auto) 0.4 % Basophils (%) (Auto) 0.1 % Neutrophils # (Auto) 11.27 1.4-6.5 K/uL Lymphocytes # (Auto) 1.34 1.2-3.4 K/uL Monocytes # (Auto) 1.19 0.11-0.59 K/uL Eosinophils # (Auto) 0.05 0-0.5 K/uL Basophils # (Auto) 0.02 0-0.2 K/uL RDW Standard Deviation 64.3 36.4-46.3 fL RDW Coefficient of Variation 20.2 11.5-14.5 % Immature Granulocyte % (Auto) 0.3 % Immature Granulocyte # (Auto) 0.04 0.00-0.02 K/uL Anisocytosis PRESENT Prothrombin Time 13.7 9.0-12.0 SECONDS Prothromb Time International Ratio 1.3 0.9-1.1 Activated Partial Thromboplast Time 28.5 21.0-31.0 SECONDS Partial Thromboplastin Ratio 1.1 Sodium Level 140 136-145 mmol/L Potassium Level 4.3 3.5-5.1 mmol/L Chloride Level 107 98-107 mmol/L Carbon Dioxide Level 21 21-32 mmol/L Anion Gap 12.0 3-11 mmol/L Blood Urea Nitrogen 39 7-18 mg/dl Creatinine 2.70 0.60-1.20 mg/dl Est Creatinine Clear Calc Drug Dose 16.8 ml/min Estimated GFR () 19.1 Estimated GFR (Non- 16.5 BUN/Creatinine Ratio 14.6 10-20 Random Glucose 110 70-99 mg/dl Calcium Level 8.6 8.5-10.1 mg/dl Total Bilirubin 1.3 0.2-1 mg/dl Aspartate Amino Transf (AST/SGOT) 108 15-37 U/L Alanine Aminotransferase (ALT/SGPT) 40 12-78 U/L Alkaline Phosphatase 192 45-117 U/L Troponin I 0.035 0-0.045 ng/ml Pro-B-Type Natriuretic Peptide 1017 0-1800 pg/ml Total Protein 6.6 6.4-8.2 gm/dl Albumin 2.2 3.4-5.0 gm/dl Globulin 4.4 2.5-4.0 gm/dl Albumin/Globulin Ratio 0.5 0.9-2 Lipase 233 73-393 U/L Urine Color DK YELLOW Urine Appearance CLOUDY CLEAR Urine pH 5.0 4.5-7.5 Urine Specific [place] 1.020 1.000-1.030 Urine Protein NEG NEG Urine Glucose (UA) NEG NEG Urine Ketones TRACE NEG Urine Occult Blood NEG NEG Urine Nitrite NEG NEG Urine Bilirubin NEG NEG Urine Urobilinogen NEG NEG Urine Leukocyte Esterase SMALL NEG Urine WBC (Auto) 10-30 0-5 /hpf Urine RBC (Auto) 0-4 0-4 /hpf Urine Hyaline Casts (Auto) 5-10 0-5 /lpf Urine Epithelial Cells (Auto) >30 0-5 /lpf Urine Bacteria (Auto) NEG NEG Diagnostic Radiology CXR IMPRESSION: 1. There is a left pleural effusion with left basilar consolidation which likely represents atelectasis. Clinical correlation will be required. This is similar to the 09/05/2016 CT scan. 2. Hi[address] hernia. CT ABD/PELVIS IMPRESSION: 1. Interval passage of the previously identified 3 mm distal left ureteral calculus 2. Punctate nonobstructing left renal calculi 3. No evidence of bowel obstruction. No evidence of free air 4. Increasing moderate right pleural effusion 5. Stable moderate ascites 6. Cirrhotic morphology of the liver. Upper abdominal varices. 7. Large hiatal hernia Impression - H&P Impression Assessment and Plan ASCITES, PLEURAL EFFUSION, HX MORRISON W/ VARICES ROSANGELA ON CKD STAGE IV - admit to med/surg - patient presenting with increasing shortness of breath; as an outpatient Lasix was increased a couple of weeks ago that resulted in worsening renal function and despite reducing Lasix and receiving IVF, creatinine remains elevated - ? hepatorenal syndrome - prior baseline creat ran in the high 1's, now up to the mid 2's - CT today showing moderate ascites and pleural effusion - both due to MORRISON - will obtain US to quantify effusion - consider therapeutic thoracentesis - case discussed with JACQUELINE Da Silva - will plan for IV Albumin and paracentesis - no not suspect SBP - hold Lasix for now - case discussed with Dr. Seo DIARRHEA - chronic for the past 6 months - check stool studies HIATAL HERNIA - has been evaluated by CT surgery who said she was not a good candidate for repair due to varices HTN - BP controlled, continue amlodipine DEPRESSION / ANXIETY - continue fluoxetine and buspirone HLD - continue statin DVT PROPHYLAXIS - SCDs due to esophageal varices CODE STATUS - Patient is a full code as per my discussion with her. DISPO - In my clinical judgment this beneficiary meets acute admission criteria, established by [facility], that includes being hospitalized through two midnights. Attending Note: Assessment and Plan: Patient is a 76 Yr female who presents for evaluation of worsening SOB, leg swelling, Cr levels, Abdominal distention, nausea and generalized weakness. She had paracentesis in ED per recommendations from GI and currently feels better. Physical Exam: Vitals signs as noted above General Appearance:Moderately built and nourished, no apparent distress Head: normocephalic, Atraumatic Eyes: normal inspection, EOMI, PERRL Neck: supple, Trachea midline Respiratory/Chest: Normal breath sounds, Left base minimal creps, R base decreased BS Cardiovascular: S1, S2, No murmur Abdomen/GI:Soft, Non tender, Bowel sounds present, +Protuberant Extremities/Musculoskelatal:normal inspection, + Non pitting B/L edema Neurologic/Psych:AAOX3, grossly no focal neurological deficits Skin:normal color,warm Volume overload status: Ascites and Pleural effusion S/P paracentesis CT surgery consulted for thoracentesis ROSANGELA on CKD IV Planned for Albumin Infusion GI and Nephrology consulted CXR: Possible Left basilar consolidation Vs atelectasis Denies cough, chest pain, fever, chills Has leukocytosis Check procalcitonin Consider antibiotics if clinically warranted I personally reviewed the record. Patient is interviewed and examined at bedside. Patient's care is coordinated with Ladonna Quiroz ARTIFICIAL INTELLIGENCE SPECIALIST. Please refer to the documentation above for details of patient's presentation and for discussion of other issues. Advanced Directives Existing Living Will: No Existing Power of Coating Machine Operator: No VTE Prophylaxis VTE Risk Assessment Done? Y/N: Yes Risk Level: Moderate Physical Exam (per Admitting): General Appearance: no apparent distress Head: normocephalic Eyes: normal inspection ENT: hearing grossly normal Neck: supple, no JVD Respiratory/Chest: no respiratory distress, + decreased breath sounds (BL) Cardiovascular: regular rate, rhythm, no edema, normal peripheral pulses Abdomen/GI: normal bowel sounds, + distended (semi firm) Extremities/Musculoskelatal: normal inspection, no calf tenderness Neurologic/Psych: no motor/sensory deficits, alert, normal mood/affect, oriented x 3 Skin: normal color, warm/dry Hospital Course ASCITES, PLEURAL EFFUSION, HX MORRISON W/ VARICES Patient presenting with increasing shortness of breath; as an outpatient Lasix was increased a couple of weeks ago that resulted in worsening renal function CT today showing moderate ascites and pleural effusion - both due to MORRISON 10/23 - 2L ascites removal via paracentesis:NO evidence SBP US to quantify effusion >600mls effusion -does not need to be drained as per Thoracic Surgery Appreciate GI input Repeat CXR-pleural fluid is decreased/stable Continue current treatment Clinically a much better Denies any symptoms Ready to be discharged today ROSANGELA ON CKD STAGE IV Prior baseline creat ran in the high 1's, now up to the mid 2's Could have Hepatorenal syndrome Nephrology Consulted Monitor Renal function Getting Albumin and Lasix is on Hold Renal function is improving but Much better today ,Creatinine 1.9 today DIARRHEA Chronic for the past 6 months Check stool [id number] C Diff -negative Advised to take Imodium PRN HIATAL HERNIA has been evaluated by CT surgery who said she was not a good candidate for repair due to varices No acute symptoms HTN - BP controlled, continue amlodipine DEPRESSION / ANXIETY - continue fluoxetine and buspirone -psychiatry consulted -appreciate input HLD - continue statin DVT PROPHYLAXIS - SCDs due to esophageal varices CODE STATUS - Patient is a full code as per my discussion with her. DISPO - In my clinical judgment this beneficiary meets acute admission criteria, established by [facility], that includes being hospitalized through two midnights. -likely discharge home -discussed with the and Daughter -discussed about the disease process of Cirrhosis. -Low Albumin is causing fluid retention and Liver can not make it adequately and can not be supplied from outside source.Symptomatic management Discharge today Total time spent on discharge = 35 minutes This includes examination of the patient, discharge planning, medication reconciliation, and communication with other providers. Discharge Instructions Date of Service Oct 29, 2016. Admission Reason for Admission: ROSANGELA Discharge Discharge Diagnosis / Problem: Ascites,Pleural effusion,Cirrhosis of Liver Discharge Goals Goal(s): Prevent Disease Progression Activity Recommendations Activity Limitations: resume your previous activity . Instructions / Follow-Up Instructions / Follow-Up Your PCP on 11/01/16 at 12:45 PM. GI and Thoracic surgery will call with appointment Current Hospital Diet Patient's current hospital diet: Low Sodium Diet (2gm Na), Renal Diet Discharge Diet Recommended Diet: Low Sodium Diet (2gm Na) Fluid Restriction: 1500 ml (6 cups) Pending Studies Studies pending at discharge: no Laboratory Results Hemoglobin A1c Test 09/06/16 08:30 Range/Units Estimated Average Glucose 146 mg/dl Hemoglobin A1c 6.7 H 4.5-5.6 % Medical Emergencies . Who to Call and When: Medical Emergencies: If at any time you feel your situation is an emergency, please call 911 immediately. . Non-Emergent Contact Non-Emergency issues call your: Primary Care Provider . Past History Medical & Surgical History: (1) Ascites of liver (2) Pleural effusion (3) Generalized anxiety disorder (4) DM type 2 (diabetes mellitus, type 2) (5) HTN (hypertension) (6) CKD (chronic kidney disease), stage IV (7) Asthma (8) MORRISON (nonalcoholic steatohepatitis) (9) H/O sinus surgery (10) S/p rectocele repair (11) History of hysterectomy (12) S/P cardiac cath (13) History of esophagogastroduodenoscopy (EGD) . "Provider Documentation" section prepared by Taz Puentes. . VTE Core Measure Inpt VTE Proph given/why not?: SCD's <Electronically signed by Taz Puentes M.D.> Additional Copies To Marisol Sepulveda M.D.
== END 2016-10-29 14:05 | disposition home health service (06) | DRG 432 ==
LOC: C.EDB 11:33 → C.MS4W 15:40 → ENRESERV 16:11
PROVIDERS: ADMIT Internal Medicine; ATTEND Internal Medicine
PROC: 0W9G3ZX Drainage of Peritoneal Cavity, Percutaneous Approach, Diagnostic (ICD-10-PCS; principal; 2016-10-23)
PROC: 0W9G3ZZ Drainage of Peritoneal Cavity, Percutaneous Approach (ICD-10-PCS; principal; 2016-10-23)
DX: K74.60 Unspecified cirrhosis of liver (principal); K76.7 Hepatorenal syndrome; N17.9 Acute kidney failure, unspecified; R18.8 Other ascites; J94.8 Other specified pleural conditions; I85.10 Secondary esophageal varices without bleeding; N18.4 Chronic kidney disease, stage 4 (severe); K75.81 Nonalcoholic steatohepatitis (NASH); F06.30 Mood disorder due to known physiological condition, unspecified; R19.7 Diarrhea, unspecified; E83.39 Other disorders of phosphorus metabolism; F32.9 Major depressive disorder, single episode, unspecified; K44.9 Diaphragmatic hernia without obstruction or gangrene; I12.9 Hypertensive chronic kidney disease with stage 1 through stage 4 chronic kidney disease, or unspecified chronic kidney disease; J45.909 Unspecified asthma, uncomplicated; E78.5 Hyperlipidemia, unspecified; E11.22 Type 2 diabetes mellitus with diabetic chronic kidney disease; K21.9 Gastro-esophageal reflux disease without esophagitis; F41.1 Generalized anxiety disorder; E66.9 Obesity, unspecified; Z79.899 Other long term (current) drug therapy; Z68.26 Body mass index [BMI] 26.0-26.9, adult; Z80.1 Family history of malignant neoplasm of trachea, bronchus and lung; Z82.49 Family history of ischemic heart disease and other diseases of the circulatory system

== ENCOUNTER 2016-11-12 18:04 | Inpatient (IN) | payer OTHER ==
[~2016-11-12] VITALS: Ht 162.6 cm; Wt 65.0 kg
[~2016-11-12 18:04] MED LIST changes: -AMLO-110 PO; +AMLO2.5T PO; -BNT20 PO; -FLUO20CA35 PO; +FLVHFA110 INH; +FURO-85 PO; -HYDR-5688 PO; +LOPE1TAB25 PO; +PANT40TA PO; +POTTAB2 PO; +PRMT25 PO; +QSTP PO; -RANI150T3 PO
[2016-11-12] MEDS ORDERED: SODIUM CHLORIDE 0.9% 1000ML 1,000 ML IV STA (18:16)
--- NOTE | 2016-11-12 18:33 | EMERGENCY ROOM VISIT NOTE ---
History Report prepared by Radha: Hermila Pradhan Under the Supervision of: Dr. Alysha Benitez M.D. First contact with patient: 18:07 Stated Complaint: SHORTNESS OF BREATH History of Present Illness The patient is a 76 year old female who presents to the Emergency Room with complaints of an episode of a fall beginning just DI[employer] EXP[employer]. The patient states that over the last month she has had worsening shortness of breath and has had 2 stays in the hospital. She reports that she has been feeling weak and dizzy and today she slid off of the toilet and fell onto the ground. She notes that she was not able to stand up and someone came to get her after a short period of time. The patient states that she has not been drinking fluids recently and does not like water. She notes that she tries to drink Gatorade but gets heart burn when she does this in the morning. She reports that she does not eat in the morning before taking her medication. The patient complains of some nausea. She denies any fever, head injury, neck pain, abdominal pain, and leg pain. She states that she has a pleural effusion and has an appointment with her doctor tomorrow. Source of History: patient Onset: just DIAM[employer] EXPERT Position: other (global) Quality: other (fall) Timing: other (episode) Associated Symptoms: + SOB, + nausea, + weakness, No fevers, No neck pain, No abdominal pain Note: Pt complains of dizziness. She denies any head injury. Review of Systems See HPI for pertinent positives & negatives. A total of 10 systems reviewed and were otherwise negative. Past Medical & Surgical Medical Problems: (1) Ascites of liver (2) Asthma (3) CKD (chronic kidney disease), stage IV (4) DM type 2 (diabetes mellitus, type 2) (5) Dyslipidemia (6) GERRY (generalized anxiety disorder) (7) Generalized anxiety disorder (8) GERD (gastroesophageal reflux disease) (9) HTN (hypertension) (10) MORRISON (nonalcoholic steatohepatitis) (11) Pleural effusion (12) Varices, esophageal Surgical Problems: (1) H/O sinus surgery (2) History of esophagogastroduodenoscopy (EGD) (3) History of hysterectomy (4) Hx of appendectomy (5) S/P cardiac cath (6) S/p rectocele repair Family History Cardiac disorder MOTHER FH: cancer FATHER (lung CA) Social History Smoking Status: Never Smoker Alcohol Use: none Drug Use: none Marital Status: Housing Status: lives with family Current/Historical Medications Scheduled Amlodipine (Norvasc), 2.5 MG PO DAILY Atorvastatin (Lipitor), 10 MG PO HS Buspirone Hcl (Buspirone Hcl), 10 MG PO TID Cholestyramine (Cholestyramine Light), 4 GM PO BID@10,22 Fluoxetine (Prozac), 80 MG PO DAILY Furosemide (Lasix), 40 MG PO DAILY Lutein (Hm Lutein), 20 MG PO DAILY Midodrine (Midodrine HCl), 5 MG PO TID@08,12,17 Multiple Vitamins W/ Minerals (Icaps), 1 CAP PO DAILY Pantoprazole (Protonix), 40 MG PO DAILY Potassium Phosphate Monobasic (K-Phos), 250 MG PO BID Scheduled PRN Albuterol (Ventolin Hfa), 2 PUFFS INH Q4 PRN for SOB/Wheezing Loperamide Hcl (Loperamide Hcl), 2 MG PO UD PRN for Constipation Ondansetron Hcl (Zofran), 4 MG PO Q6H PRN for Nausea Allergies Coded Allergies: Erythromycin (Unverified Allergy, Mild, STOMACH PAIN, 10/23/16) Butorphanol (Unverified Allergy, Unknown, LOOPY, 10/23/16) Physical Exam Vital Signs Date Time Temp Pulse Resp B/P (MAP) Pulse Ox O2 Delivery O2 Flow Rate FiO2 11/12/16 19:05 85 20 121/69 93 Room Air 11/12/16 18:15 92 11/12/16 18:05 36.4 93 22 124/77 92 Room Air Physical Exam Vital signs reviewed. General: Well-appearing elderly female, in minimal distress, generalized weakness. HEENT: No scleral icterus, PERRLA, neck supple. Atraumatic. Cardiovascular: Regular rate and rhythm, no extra sounds. Pulmonary: Clear to auscultation bilaterally, normal work of breathing. Abdomen: Soft, nontender, nondistended, positive bowel sounds. Musculoskeletal: Atraumatic, no peripheral edema. Neurologic: Patient awake alert and oriented x 3, equal strength in all 4 extremities. Cranial nerves 2 through 12 grossly intact. Skin: Warm, dry, no rash Medical Decision & Procedures ER Provider Diagnostic Interpretation: Radiology results as stated below per my review and radiologist interpretation: CHEST ONE VIEW PORTABLE FINDINGS: Moderate stable cardiomegaly. Fixed lateral hernia. Lungs are clear. IMPRESSION: Chronic change. No acute process. The above report was generated using voice recognition software. It may contain grammatical, syntax or spelling errors. Electronically signed by: Bud Short M.D. 11/12/2016 7:01 PM Dictated Date/Time: 11/12/2016 7:00 PM ULTRASOUND RIGHT UPPER QUADRANT ABDOMEN FINDINGS: Liver: Cirrhotic in morphology and heterogeneous in attenuation. Echotexture is increased consistent with steatosis. There is nodularity of the hepatic surface contour. There is no intrahepatic biliary ductal dilatation. The main portal vein is patent. Reversal of flow suggested in the main portal vein. Gallbladder: The gallbladder is surgically absent. The common bile duct measures up to 0.3 cm in diameter. Pancreas: Visualized portions of the pancreatic head and body are normal in appearance. Right kidney: Survey images of the right kidney show marked cortical atrophy. There is no hydronephrosis. Ascites: There is a small volume of perihepatic ascites. Pleural spaces: There is a small right pleural effusion. IMPRESSION: 1. No acute sonographic abnormality is identified in the right upper quadrant noting status post cholecystectomy. 2. The liver is cirrhotic in morphology and steatotic. 3. There is a small volume of abdominal ascites. 4. Small right pleural effusion. Electronically signed by: Ty Montano M.D. 11/12/2016 8:39 PM Dictated Date/Time: 11/12/2016 8:37 PM Laboratory Results 11/12/16 17:50 Red Blood Count 4.02, Mean Corpuscular Volume 93.0, Mean Corpuscular Hemoglobin 30.8, Mean Corpuscular Hemoglobin Concent 33.2, Neutrophils (%) (Auto) 78.9, Lymphocytes (%) (Auto) 14.0, Monocytes (%) (Auto) 5.8, Eosinophils (%) (Auto) 0.8, Basophils (%) (Auto) 0.2, Neutrophils # (Auto) 12.27, Lymphocytes # (Auto) 2.17, Monocytes # (Auto) 0.90, Eosinophils # (Auto) 0.13, Basophils # (Auto) 0.03 11/12/16 17:50 Test 11/12/16 17:50 11/12/16 18:29 White Blood Count 15.55 K/uL (4.8-10.8) Red Blood Count 4.02 M/uL (4.2-5.4) Hemoglobin 12.4 g/dL (12.0-16.0) Hematocrit 37.4 % (37-47) Mean Corpuscular Volume 93.0 fL (80-100) Mean Corpuscular Hemoglobin 30.8 pg (25-34) Mean Corpuscular Hemoglobin Concent 33.2 g/dl (32-36) Platelet Count 268 K/uL (130-400) Neutrophils (%) (Auto) 78.9 % Lymphocytes (%) (Auto) 14.0 % Monocytes (%) (Auto) 5.8 % Eosinophils (%) (Auto) 0.8 % Basophils (%) (Auto) 0.2 % Neutrophils # (Auto) 12.27 K/uL (1.4-6.5) Lymphocytes # (Auto) 2.17 K/uL (1.2-3.4) Monocytes # (Auto) 0.90 K/uL (0.11-0.59) Eosinophils # (Auto) 0.13 K/uL (0-0.5) Basophils # (Auto) 0.03 K/uL (0-0.2) Immature Granulocyte % (Auto) 0.3 % Immature Granulocyte # (Auto) 0.05 K/uL (0.00-0.02) Anisocytosis PRESENT Echinocytes 1+ Anion Gap 10.0 mmol/L (3-11) Est Creatinine Clear Calc Drug Dose 19.1 ml/min Estimated GFR () 20.9 Estimated GFR (Non- 18.1 BUN/Creatinine Ratio 12.8 (10-20) Calcium Level 8.7 mg/dl (8.5-10.1) Magnesium Level 2.1 mg/dl (1.8-2.4) Total Bilirubin 2.1 mg/dl (0.2-1) Direct Bilirubin 1.1 mg/dl (0-0.2) Aspartate Amino Transf (AST/SGOT) 106 U/L (15-37) Alanine Aminotransferase (ALT/SGPT) 46 U/L (12-78) Alkaline Phosphatase 187 U/L (45-117) Total Creatine Kinase 30 U/L (26-192) Creatine Kinase MB 1.5 ng/ml (0.5-3.6) Creatine Kinase MB Ratio 5.0 (0-3.0) Total Protein 7.0 gm/dl (6.4-8.2) Albumin 2.4 gm/dl (3.4-5.0) Lipase 222 U/L (73-393) Thyroid Stimulating Hormone (TSH) 4.160 uIu/ml (0.300-4.500) Bedside Troponin I 0.060 ng/ml (0-0.045) Laboratory results per my review. Medications Administered Medications (Trade) Dose Ordered Sig/Edilson Route Start Time Stop Time Status Last Admin Dose Admin Sodium Chloride 1,000 ml @ 125 mls/hr Q8H STAT IV 11/12/16 18:16 11/13/16 02:15 11/12/16 18:16 125 MLS/HR Aspirin (Aspirin Chew) 324 mg NOW STAT PO 11/12/16 19:26 11/12/16 19:31 DC 11/12/16 19:38 324 MG ECG Indication: SOB/dyspnea Rate (beats per minute): 90 Rhythm: normal sinus Findings: T-wave inversion (inferior and lateral), other (previous septal infarct) Comparison ECG Date: 10/23/2016 Change: T wave abnormality is new. ED Course 1806: Past medical records reviewed. The patient was evaluated in room C2B. A complete history and physical examination was performed. 1815: Sodium Chloride 1000 ml @ 125 mls/hr IV. 1925: Aspirin 324mg PO. 1947: I reviewed the patient's case with Dr. Dickson of [facility]. He will evaluate the patient for further management. 1955: Upon reevaluation, the patient is resting comfortably. I discussed laboratory and radiographic results with the patient. She verbalized agreement of the treatment plan. I spoke with Dr. Dickson of the [facility] Hospitalist Service. The patient will be evaluated for further management and care. Medical Decision Differential diagnosis: Etiologies such as metabolic, infection, hypo/hyperglycemia, electrolyte abnormalities, cardiac sources, intracerebral event, toxicologic, neurologic, as well as others were entertained. This patient was evaluated and appeared to be in no significant distress. IV access was obtained and laboratory work was drawn. The patient was placed on the cardiac technologist and found to be in a sinus rhythm. Laboratory work reveals an acute on chronic renal insufficiency, mildly elevated troponin, elevated bilirubin. The elevated bilirubin is of uncertain etiology. Ultrasound right upper quadrant was performed and reveals cirrhosis of the liver. Chest x-ray was performed and reveals chronic changes, no congestive change or pulmonary infiltrate. EKG reveals T-wave abnormalities without any evidence of ST elevation [place]. Due to the patient's generalized weakness and falls, laboratory abnormalities, case has been discussed with the hospitalist service, Dr. Dickson will evaluate the patient for further management. Medication Reconcilliation Current Medication List: was personally reviewed by me Blood Pressure Screening Patient's blood pressure: Normal blood pressure Blood pressure disposition: Did not require urgent referral Consults Time Called: 1944 Consulting Physician: Dr. Yessi Dye Returned Call: 1947 I reviewed the patient's case with Dr. Dickson of [facility]. He will evaluate the patient for further management. Impression Primary Impression: Acute kidney injury Additional Impression: Elevated troponin Scribe Attestation The scribe's documentation has been prepared under my direction and personally reviewed by me in its entirety. I confirm that the note above accurately reflects all work, treatment, procedures, and medical decision making performed by me. Departure Information Referrals June Perkins CRNP (PCP) Problem Qualifiers
[2016-11-12 18:44] LABS: BUN/CREATININE RATIO 12.8 (10-20); CALCIUM 8.7 mg/dl (8.5-10.1); CREATININE 2.5 mg/dl (0.60-1.20); MAGNESIUM 2.1 mg/dl (1.8-2.4); POTASSIUM 4.8 mmol/L (3.5-5.1)
[2016-11-12 18:52] LABS: THYROID STIMULATING HORMONE 4.16 uIu/ml (0.300-4.500)
--- NOTE | 2016-11-12 19:02 | DIAGNOSTIC IMAGING REPORT ---
CHEST ONE VIEW PORTABLE CLINICAL HISTORY: fall trauma COMPARISON STUDY: No previous studies for comparison. FINDINGS: Moderate stable cardiomegaly. Fixed lateral hernia. Lungs are clear. IMPRESSION: Chronic change. No acute process. The above report was generated using voice recognition software. It may contain grammatical, syntax or spelling errors. Electronically signed by: Bud Short M.D. 11/12/2016 7:01 PM Dictated Date/Time: 11/12/2016 7:00 PM
[2016-11-12 19:08] LABS: MEAN CORPUSCULAR HGB CONC 33.2 g/dl (32-36); PLATELET COUNT 268 K/uL (130-400)
[2016-11-12 19:19] LABS: ANISOCYTOSIS PRESENT; BASO % 0.2 %; BASO ABS # 0.03 K/uL (0-0.2); COMPLETE YES; ECHINOCYTES 1+; EOS % 0.8 %; HEMATOCRIT 37.4 % (37-47); IG% 0.3 %; LYMPH ABS # 2.17 K/uL (1.2-3.4); MEAN CORPUSCULAR HEMOGLOBIN 30.8 pg (25-34); MONO % 5.8 %; NEUT % 78.9 %; RED BLOOD COUNT 4.02 M/uL (4.2-5.4); WHITE BLOOD COUNT 15.55 K/uL (4.8-10.8)
[2016-11-12] MEDS ORDERED: ASPIRIN 81 MG CHEW PO STA (19:26)
[2016-11-12] MEDS ORDERED: KPH PO (19:49)
--- NOTE | 2016-11-12 20:40 | DIAGNOSTIC IMAGING REPORT ---
ULTRASOUND RIGHT UPPER QUADRANT ABDOMEN CLINICAL HISTORY: Elevated bilirubin. COMPARISON STUDY: Abdominal CT dated 10/23/2016. TECHNIQUE: Real-time, grayscale, and color flow sonography of the right upper quadrant of the abdomen was performed. Images are reviewed in the transverse and longitudinal planes. FINDINGS: Liver: Cirrhotic in morphology and heterogeneous in attenuation. Echotexture is increased consistent with steatosis. There is nodularity of the hepatic surface contour. There is no intrahepatic biliary ductal dilatation. The main portal vein is patent. Reversal of flow suggested in the main portal vein. Gallbladder: The gallbladder is surgically absent. The common bile duct measures up to 0.3 cm in diameter. Pancreas: Visualized portions of the pancreatic head and body are normal in appearance. Right kidney: Survey images of the right kidney show marked cortical atrophy. There is no hydronephrosis. Ascites: There is a small volume of perihepatic ascites. Pleural spaces: There is a small right pleural effusion. IMPRESSION: 1. No acute sonographic abnormality is identified in the right upper quadrant noting status post cholecystectomy. 2. The liver is cirrhotic in morphology and steatotic. 3. There is a small volume of abdominal ascites. 4. Small right pleural effusion. Electronically signed by: Ty Montano M.D. 11/12/2016 8:39 PM Dictated Date/Time: 11/12/2016 8:37 PM
--- NOTE | 2016-11-12 21:42 | History and Physical ---
History & Physical Date & Time of Service: Nov 12, 2016 at 21:42 . Chief Complaint: weakness, fall . Primary Care Physician: Marisol Sepulveda M.D. . History of Present Illness Source: patient, family, clinic records, hospital records 76-year-old female followed by Dr. Sepulveda. 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 She lives at home with her . Hospitalized at [facility] on 09/05/16 with nausea and poor oral intake. Found to have a large hiatal hernia. Evaluated by Thoracic Surgery; felt to be at prohibitively high risk for surgical intervention. Discharge to home on 09/08/16. ED visit on 09/21/16 for ureteral colic. Discharged to home. ED visit on 10/18/16 for worsening renal function attributed to dehydration. Discharged to home. Hospitalized at [facility] on 10/23/16 with acute kidney injury. Paracentesis was performed. No evidence of SBP. Seen in consultation by Nephrology; diuretics were held and albumin administered. Started on midodrine for orthostatic hypotension. Discharge to home on 10/29/16. Has has felt weak since returning home. Today she fell in the bathroom while trying to position herself on the toilet. Generalized weakness and intermittent lightheadedness. No associated syncope, chest pain, focal neurologic symptoms. Intermittent palpitations. She injured her arms when she fell. No apparent head injury or hip injury. . Past Medical/Surgical History Chronic and Resolved Medical Problems: (1) Asthma Status: Chronic (2) CKD (chronic kidney disease), stage IV Status: Chronic (3) DM type 2 (diabetes mellitus, type 2) Status: Chronic (4) Dyslipidemia Status: Chronic (5) GERRY (generalized anxiety disorder) Status: Chronic (6) Generalized anxiety disorder Status: Chronic (7) GERD (gastroesophageal reflux disease) Status: Chronic (8) HTN (hypertension) Status: Chronic (9) MORRISON (nonalcoholic steatohepatitis) Status: Chronic (10) Varices, esophageal Status: Chronic Surgical Problems: (1) H/O sinus surgery Status: Chronic (2) History of esophagogastroduodenoscopy (EGD) Permanent Comment: 09/07/16 - Grade II esophageal varices banded, GAVE, no portal HTN Status: Chronic (3) History of hysterectomy Status: Chronic (4) Hx of appendectomy Status: Resolved (5) S/P cardiac cath Status: Chronic (6) S/p rectocele repair Status: Chronic . Family History FATHER FH: cancer (lung CA) MOTHER Cardiac disorder Social History Smoking Status: Never Smoker Alcohol Use: none Drug Use: none Marital Status: Housing status: lives with significant other Immunizations History of Tetanus Vaccine?: Yes Tetanus Immunization Date: Feb 20, 2013 History of Pneumococcal: Yes Pneumococcal Date: Aug 02, 2015 History of Hepatitis B Vaccine: Yes Hepatitis Immunization Date: Oct 18, 2016 Allergies Coded Allergies: Erythromycin (Unverified Allergy, Mild, STOMACH PAIN, 10/23/16) Butorphanol (Unverified Allergy, Unknown, LOOPY, 10/23/16) Home Medications Scheduled Amlodipine (Norvasc), 2.5 MG PO DAILY Atorvastatin (Lipitor), 10 MG PO HS Buspirone Hcl (Buspirone Hcl), 10 MG PO TID Cholestyramine (Cholestyramine Light), 4 GM PO BID@, Fluoxetine (Prozac), 80 MG PO DAILY Furosemide (Lasix), 40 MG PO DAILY Lutein (Hm Lutein), 20 MG PO DAILY Midodrine (Midodrine HCl), 5 MG PO TID@08,12,17 Multiple Vitamins W/ Minerals (Icaps), 1 CAP PO DAILY Pantoprazole (Protonix), 40 MG PO DAILY Potassium Phosphate Monobasic (K-Phos), 250 MG PO BID Scheduled PRN Albuterol (Ventolin Hfa), 2 PUFFS INH Q4 PRN for SOB/Wheezing Loperamide Hcl (Loperamide Hcl), 2 MG PO UD PRN for Constipation Ondansetron Hcl (Zofran), 4 MG PO Q6H PRN for Nausea Review of Systems Constitutional: No fever, No chills Eyes: + worsening of vision (chronic) ENT: + hearing loss, + sore throat (mild) Respiratory: + cough, + shortness of breath Cardiovascular: + edema, + palpitations, No chest pain Abdomen: + nausea, + problem reported (heartburn), No pain, No vomiting, No diarrhea, No GI bleeding Musculoskeletal: No joint pain, No muscle pain Genitourinary - Female: No dysuria, No hematuria Neurologic: + weakness (generalized) Psychiatric: + depression symptoms, + anxiety Endocrine: + fatigue, No excessive thirst, No excessive urination Hematologic / Lymphatic: + abnormal bleeding/bruising, No swollen lymph nodes Integumentary: No rash, No new/changing skin lesions Physical Exam Vital Signs Date Time Temp Pulse Resp B/P (MAP) Pulse Ox O2 Delivery O2 Flow Rate FiO2 11/12/16 19:05 85 20 121/69 93 Room Air 11/12/16 18:15 92 11/12/16 18:05 36.4 93 22 124/77 92 Room Air General Appearance: WD/WN, no apparent distress Head: normocephalic, atraumatic Eyes: normal inspection, PERRL, EOMI, sclerae normal ENT: hearing grossly normal, pharynx normal, + pertinent finding (poor dentition) Neck: supple, no adenopathy, thyroid normal, trachea midline Respiratory/Chest: lungs clear, no respiratory distress, no accessory muscle use Cardiovascular: regular rate, rhythm, no gallop, no murmur, + JVD, + abnormal peripheral pulses (diminished pedal pulses, capillary refill 1-2 sec), + pertinent finding (1+ pretibial, 2+ pedal edema) Abdomen/GI: normal bowel sounds, non tender, soft, no organomegaly, no pulsatile mass, + pertinent finding (moderately distended) Extremities/Musculoskelatal: no calf tenderness, + pertinent finding (no hip pain / tenderness) Neurologic/Psych: furnace cooler II-XII nml as tested (PERRL, EOMI, no facial palsy, no dysarthria), no motor/sensory deficits (diffuse motor weakness), alert, oriented x 3, + depressed affect, + pertinent finding (anxious) Skin: normal color, warm/dry, no rash Lymphatic: no adenopathy (cervical) Diagnostics Laboratory Results Results Past 24 Hours Test 11/12/16 17:50 11/12/16 18:29 Range/Units White Blood Count 15.55 4.8-10.8 K/uL Red Blood Count 4.02 4.2-5.4 M/uL Hemoglobin 12.4 12.0-16.0 g/dL Hematocrit 37.4 37-47 % Mean Corpuscular Volume 93.0 80-100 fL Mean Corpuscular Hemoglobin 30.8 25-34 pg Mean Corpuscular Hemoglobin Concent 33.2 32-36 g/dl Platelet Count 268 130-400 K/uL Neutrophils (%) (Auto) 78.9 % Lymphocytes (%) (Auto) 14.0 % Monocytes (%) (Auto) 5.8 % Eosinophils (%) (Auto) 0.8 % Basophils (%) (Auto) 0.2 % Neutrophils # (Auto) 12.27 1.4-6.5 K/uL Lymphocytes # (Auto) 2.17 1.2-3.4 K/uL Monocytes # (Auto) 0.90 0.11-0.59 K/uL Eosinophils # (Auto) 0.13 0-0.5 K/uL Basophils # (Auto) 0.03 0-0.2 K/uL Immature Granulocyte % (Auto) 0.3 % Immature Granulocyte # (Auto) 0.05 0.00-0.02 K/uL Anisocytosis PRESENT Echinocytes 1+ Sodium Level 143 136-145 mmol/L Potassium Level 4.8 3.5-5.1 mmol/L Chloride Level 109 98-107 mmol/L Carbon Dioxide Level 24 21-32 mmol/L Anion Gap 10.0 3-11 mmol/L Blood Urea Nitrogen 32 7-18 mg/dl Creatinine 2.50 0.60-1.20 mg/dl Est Creatinine Clear Calc Drug Dose 19.1 ml/min Estimated GFR () 20.9 Estimated GFR (Non- 18.1 BUN/Creatinine Ratio 12.8 10-20 Random Glucose 144 70-99 mg/dl Calcium Level 8.7 8.5-10.1 mg/dl Magnesium Level 2.1 1.8-2.4 mg/dl Total Bilirubin 2.1 0.2-1 mg/dl Direct Bilirubin 1.1 0-0.2 mg/dl Aspartate Amino Transf (AST/SGOT) 106 15-37 U/L Alanine Aminotransferase (ALT/SGPT) 46 12-78 U/L Alkaline Phosphatase 187 45-117 U/L Total Creatine Kinase 30 26-192 U/L Creatine Kinase MB 1.5 0.5-3.6 ng/ml Creatine Kinase MB Ratio 5.0 0-3.0 Total Protein 7.0 6.4-8.2 gm/dl Albumin 2.4 3.4-5.0 gm/dl Lipase 222 73-393 U/L Thyroid Stimulating Hormone (TSH) 4.160 0.300-4.500 uIu/ml Bedside Troponin I 0.060 0-0.045 ng/ml Diagnostic Radiology CHEST ONE VIEW PORTABLE FINDINGS: Moderate stable cardiomegaly. Fixed lateral hernia. Lungs are clear. IMPRESSION: Chronic change. No acute process. The above report was generated using voice recognition software. It may contain grammatical, syntax or spelling errors. Electronically signed by: Bud Short M.D. 11/12/2016 7:01 PM Dictated Date/Time: 11/12/2016 7:00 PM ULTRASOUND RIGHT UPPER QUADRANT ABDOMEN FINDINGS: Liver: Cirrhotic in morphology and heterogeneous in attenuation. Echotexture is increased consistent with steatosis. There is nodularity of the hepatic surface contour. There is no intrahepatic biliary ductal dilatation. The main portal vein is patent. Reversal of flow suggested in the main portal vein. Gallbladder: The gallbladder is surgically absent. The common bile duct measures up to 0.3 cm in diameter. Pancreas: Visualized portions of the pancreatic head and body are normal in appearance. Right kidney: Survey images of the right kidney show marked cortical atrophy. There is no hydronephrosis. Ascites: There is a small volume of perihepatic ascites. Pleural spaces: There is a small right pleural effusion. IMPRESSION: 1. No acute sonographic abnormality is identified in the right upper quadrant noting status post cholecystectomy. 2. The liver is cirrhotic in morphology and steatotic. 3. There is a small volume of abdominal ascites. 4. Small right pleural effusion. Electronically signed by: Ty Montano M.D. 11/12/2016 8:39 PM Dictated Date/Time: 11/12/2016 8:37 PM . EKG EKG performed at 18:10 reviewed and demonstrated normal sinus rhythm at 90/ minute, baseline artifact, inverted T waves lead III, flattened T waves aVF. . Impression Assessment and Plan ACUTE KIDNEY INJURY / CKD IV CKD IV. Creatinine in ED 2.5, compared to 1.9 on 10/29/16. Underlying cirrhosis on diuretic therapy. Seems to be ~ euvolemia. Consult Nephrology. ELEVATED TROPONIN No chest pain. Intermittent palpitations. EKG shows nonspecific T-wave changes. Elevated troponin may be nonspecific, perhaps related to fall. Check repeat cardiac markers in the morning. LEUKOCYTOSIS WBC 15,000. No fever. Generalized weakness. Minimal cough. No infiltrates on chest x-ray. Doubt pneumonia. Minimal ascites. Doubt SBP. No urinary symptoms. UA does not suggest UTI. Follow. 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 Associated portal hypertension, esophageal varices, ascites. Small volume ascites at this time per US. Consult GI for ongoing coordination of care. LARGE HIATAL HERNIA Evaluated by Thoracic Surgery. Surgical intervention not advised due to comorbidities. Elevated head of bed. Upright when eating / drinking. Continue PPI. PLEURAL EFFUSION Evaluated by Thoracic Surgery during recent admission. Attributed to ascites. Follow. ANOREXIA / MALNUTRITION Probably multifactorial- hiatal hernia, GERD, cirrhosis, meds, dentition. Consult Nutrition for recommendations. Try changing anti-depressant from fluoxetine to mirtazapine. HYPERTENSION Continue amlodipine. ORTHOSTATIC HYPOTENSION Continue midodrine. Avoid excessive diuresis. Check orthostatic vitals. Fall precautions. DM TYPE 2 Diet-controlled. Random blood sugar in ED 144. Hgb A1C 6.7 on 09/06/16. ANXIETY / DEPRESSION Fluoxetine may be contributing to anorexia. Try switching from fluoxetine to mirtazapine. Continue buspirone. DVT PROPHYLAXIS Moderately high risk for DVT. No anticoagulants due to fall risk and esophageal varices. SCD's. Ambulated. GENERAL DEBILITATION Multifactorial. PT / OT evals. RESUSCITATION STATUS Full resuscitation per recent discussions. DISPOSITION Admit to Telemetry Unit. Discharge disposition to be determined. May need skilled care. Consult Case Management. Family Medicine follow-up with Dr. Sepulveda. . VTE Prophylaxis VTE Risk Assessment Done? Y/N: Yes Risk Level: Moderate Given or contraindicated: SCD's
[2016-11-12] MEDS ORDERED: ALBUTEROL HFA 8 GM INHALER INH PRN (22:00)
[2016-11-12 22:23] VITALS: BP 133/73; PULSE 88; TEMP 36.8; O2SAT 93; BMI 26.2
[2016-11-12 22:44] LABS: MANUAL MICROSCOPIC REQUIRED? NO; REVIEW REQ? YES; URINE APPEARANCE CLOUDY (CLEAR); URINE BILIRUBIN NEG (NEG); URINE COLOR DK YELLOW; URINE EPITHELIAL CELL AUTO >30 /lpf (0-5); URINE NITRITE NEG (NEG); URINE SPECIFIC GRAVITY 1.022 (1.000-1.030); UROBILINOGEN NEG (NEG)
[2016-11-12 23:02] LABS: URINE PATH CASTS 0-3 GRANULAR CASTS /lpf (0); ZZUR CULT IF INDIC CLEAN CATCH YES
[2016-11-12] MEDS: CHOLESTYRAMINE LIGHT 4 GM PKT PO SCH (23:14)
[2016-11-13] VITALS (13 sets, daily range): BP systolic 107–132; BP diastolic 58–83; PULSE 76–90; TEMP 36.6–36.9; O2SAT 92–96
[2016-11-13 06:35] LABS: BUN/CREATININE RATIO 13.5 (10-20); CALCIUM 8.5 mg/dl (8.5-10.1); CKMB/CK RATIO 9.5 (0-3.0); CREATININE 2.4 mg/dl (0.60-1.20); POTASSIUM 4.5 mmol/L (3.5-5.1)
[2016-11-13] MEDS: MIDODRINE 2.5 MG TAB PO SCH ×3 (07:15→16:22)
[2016-11-13 07:16] LABS: CHOLESTEROL/HDL RATIO 6.2
[2016-11-13] MEDS: FUROSEMIDE 20 MG TAB PO SCH (07:16)
[2016-11-13] MEDS: PANTOprazole SOD 40 MG TAB PO SCH (07:16)
[2016-11-13] MEDS: POT PHOSPHATE MONOBASIC W/ SOD TAB PO SCH ×2 (07:16→19:58)
[2016-11-13] MEDS ORDERED: AMLODIPINE BESYLATE 5 MG TAB PO SCH (09:00)
[2016-11-13] MEDS: CHOLESTYRAMINE LIGHT 4 GM PKT PO SCH ×2 (10:31→21:06)
[2016-11-13] MEDS: ALBUMIN HUMAN 25% 12.5 GM/50 ML VIAL IV SCH ×2 (10:37→19:58)
--- NOTE | 2016-11-13 11:19 | NEPHROLOGY CONSULTATION ---
DATE OF CONSULTATION: 11/13/2016 ATTENDING OF RECORD: Dr. Mcdonald. REASON FOR CONSULTATION: ROSANGELA. HISTORY OF PRESENT ILLNESS: This is a 76-year-old female with chronic kidney disease stage IV with a creatinine tends to vary based on volume status as well as cirrhosis secondary to fatty liver disease with portal hypertension, ascites, and esophageal varices. The patient did have a paracentesis couple weeks ago and volume status is relatively good. The patient is diet-controlled diabetes as well as hypertensive. I saw the patient in October and discharged to home on October 29 with ROSANGELA, where midodrine was initiated for orthostatic hypotension and creatinine upon discharge was 1.7. The patient's Prozac has recently been adjusted. The patient's appetite has been down. She continued to have generalized weakness and intermittent lightheadedness and fell in the bathroom. The patient this morning feels much better. Family is in the room and family states that her color looks much better as well. The patient now has had several hospitalizations over the last couple months, was admitted in August with nausea and poor oral intake and attributed to large hiatal hernia. The patient also had ureteral colic in the Emergency Room in September. The patient had ROSANGELA, where the patient was given IV fluids in the Emergency Room in the beginning of October. The patient was recently admitted from October 23 to October 29 with ROSANGELA and hypotension and was discharged on midodrine. PAST MEDICAL HISTORY: CKD stage IV, diet controlled diabetes, hyperlipidemia, hypertension, orthostatic hypotension, nonalcoholic steatohepatitis, and esophageal varices. PAST SURGICAL HISTORY: Hysterectomy, appendectomy, and rectocele repair. FAMILY HISTORY: Significant for lung cancer and heart disease. SOCIAL HISTORY: No smoking, no alcohol, and no drugs. Is and lives with . CURRENT MEDICATIONS: Lipitor 10 mg at night, Remeron 15 mg at night, Norvasc 2.5 mg p.o. daily, Lasix 40 mg p.o. daily, Protonix 40 mg daily, BuSpar 10 mg p.o. t.i.d., phosphorus supplementation 1 tab p.o. b.i.d., midodrine 5 mg p.o. t.i.d., and Questran 4 grams p.o. b.i.d. REVIEW OF SYSTEMS: Positive fatigue. Positive decreased appetite. Positive poor vision. Positive shortness of breath with exertion. Positive intermittent palpitations. No dysuria or hematuria. Positive generalized weakness. No chest pain. All other review of systems otherwise negative. PHYSICAL EXAMINATION: VITAL SIGNS: Temperature 36.9, pulse 87, respiratory rate 18, blood pressure 121/72, and pulse ox 92% on room air. GENERAL: Awake, alert, and oriented x3. EYES: No scleral icterus. ENT: Moist mucous membranes. NECK: Supple. PULMONARY: Clear to auscultation. CARDIAC: Regular rate and rhythm. ABDOMEN: Bowel sounds positive. Soft. Mildly distended. EXTREMITIES: +1 edema. NEUROLOGICALLY: Nonfocal. DERMATOLOGIC: No rash or ulcers noted. LABORATORY DATA: White count 15.5, H&H 12 and 37, and platelet count is 268. Sodium level is 145, potassium 4.5, chloride 110, bicarbonate is 31, BUN is 32, creatinine is 2.4, glucose 125, and calcium is 8.5. Troponin 3.97. TSH 4.1 and mag is 2.1. T-bili 2.1. Albumin is 2.4. UA is bland with negative nitrite, negative leukocyte esterase, 0-4 RBCs, specific gravity 1.022, and pH of 5. Chest x-ray shows chronic changes. No acute process. Fixed lateral hiatal hernia. Lungs are clear. ASSESSMENT AND PLAN: 1. Chronic kidney disease, stage IV. Creatinine does tend to vary dependent on volume status. Upon discharge several weeks ago, her creatinine was down to 1.7 and now it is 2.4. Volume status appears appropriate. Lungs are clear. Trying to balance maintaining volume status appropriate while keeping the blood pressure stable and preserving kidney function. I did speak to her about her wishes for dialysis in the future. At this time, the patient is not interested in pursuing dialysis if medically necessary. However, she is willing to have the conversation again when the time is appropriate. For now, would like to start albumin low dose 12.5 grams IV b.i.d. in trying to help improve intravascular space while she is here in the hospital. Acceptable with creatinine in the mid 2s and volume status in my opinion appears appropriate. 2. Hypertension/orthostatic hypotension. The patient is on midodrine 5 mg p.o. t.i.d.; however, also on low dose Norvasc as well as Lasix trying to help control the blood pressure. May consider stopping low dose Norvasc completely and treat with the Lasix and midodrine depending on blood pressures. I appreciate the consultation. PETRA
--- NOTE | 2016-11-13 12:47 | Gastrointestinal Consultation ---
Gastrointestinal Consultation Date of Consultation: Nov 13, 2016 Attending Physician: Dr. Mcdonald Consulting Physician: Dr. Jackeline Gamboa Reason for Consultation: MORRISON History of Present Illness Patient is a 76 year old female known to our service with recent hospitalization last month when GI was consulted for MORRISON cirrhosis (hx of esophageal varices), she required a paracentesis at that time and also received albumin and was started on midodrine. Pt is followed by nephrology who has assisted with diuretic management. She is readmitted after feeling weak and fell at home. US this admission showed small amount of ascites, pt does not feel distended and feels she is near her baseline. CXR showed no acute process. Hgb stable, no evidence of bleeding. LFT's not significantly changed from prior. PT not done this admission but MELD last month was around 20 Creat. fluctuates, not significantly worse for her, pt refusing dialysis for now unless absolutely necessary. At time of consultation, pt feeling better, family in room, she is in good spirits. She denies abdominal pain, nausea or vomiting. Past Medical/Surgical History Medical Problems: (1) Acute kidney injury Status: Acute (2) Acute on chronic renal insufficiency Status: Acute (3) Elevated troponin Status: Acute (4) Epigastric abdominal pain Status: Acute (5) Hiatal hernia Status: Acute (6) Nausea Status: Acute (7) Ureterolithiasis Status: Acute Past Medical History: MORRISON cirrhosis hx of esophageal varices CKD Asthma DM2 anxiety GERD HTN Past Surgical History: sinus surgery EGD 08/2016 - grade II esophageal varices, banded hysterectomy appendectomy s/p cardia cath rectocele repair Family History Cardiac disorder MOTHER FH: cancer FATHER (lung [place]) Social History Smoking Status: Never Smoker Alcohol Use: none Drug Use: none Marital Status: Housing Status: lives with family Allergies Coded Allergies: Erythromycin (Unverified Allergy, Mild, STOMACH PAIN, 10/23/16) Butorphanol (Unverified Allergy, Unknown, LOOPY, 10/23/16) Current Medications Home Meds and Scripts Medications Dose Route/Sig Max Daily Dose Days Date Category Dose Instructions K-Phos (Potassium Phosphate Monobasic) 500 Mg Tab 250 Mg PO BID 11/12/16 Reported WITH SODIUM Cholestyramine Light (Cholestyramine) 4 Gm Pack 4 Gm PO BID@10,22 30 10/29/16 Rx Midodrine HCl (Midodrine) 2.5 Mg Tab 5 Mg PO TID@08,12,17 30 10/29/16 Rx Norvasc (Amlodipine Besylate) 2.5 Mg Tab 2.5 Mg PO DAILY 10/23/16 Reported Protonix (Pantoprazole Sodium) 40 Mg Tab 40 Mg PO DAILY 10/23/16 Reported Lasix (Furosemide) 20 Mg Tab 40 Mg PO DAILY 10/23/16 Reported Loperamide Hcl 2 Mg Tab 2 Mg PO UD PRN 10/23/16 Reported Ventolin Hfa (Albuterol) 60 Puffs/5400 Mcg Aers 2 Puffs INH Q4 PRN 09/05/16 Reported Icaps (Multiple Vitamins W/ Minerals) 1 Cap Cap 1 Cap PO DAILY 09/05/16 Reported Hm Lutein (Lutein) 20 Mg Cap 20 Mg PO DAILY 09/05/16 Reported Lipitor (Atorvastatin Calcium) 10 Mg Tab 10 Mg PO HS 09/05/16 Reported Buspirone Hcl 10 Mg Tab 10 Mg PO TID 09/05/16 Reported Prozac (Fluoxetine HCl) 40 Mg Cap 80 Mg PO DAILY 09/05/16 Reported WITH 20MG CAPS Zofran (Ondansetron HCl) 4 Mg Tab 4 Mg PO Q6H PRN 09/05/16 Reported Review of Systems Constitutional: + see HPI, + weakness, + fatigue, No fever, No chills Eyes: No problem reported ENT: No hearing loss Respiratory: No cough, No shortness of breath Cardiac: + problem reported (elevated troponin on admission, pt asymptomatic, managed by primary service), No chest pain Abdomen: + see HPI, + nausea, No vomiting Musculoskeletal: No problem reported Female : No dysuria Neuro: + weakness (no confusion reported) Psych: + problem reported (hx anxiety/depression on meds) Heme: No abnormal bleeding/bruising Skin: No rash, No jaundice Physical Exam Date Time Temp Pulse Resp B/P (MAP) Pulse Ox O2 Delivery O2 Flow Rate FiO2 11/13/16 11:21 36.6 86 18 107/71 (83) 93 11/13/16 08:34 92 Room Air 11/13/16 07:49 36.9 87 18 121/ (40) 92 Room Air 59.0 11/13/16 04:00 94 Room Air 11/13/16 03:30 36.7 84 18 132/72 (92) 92 Room Air 11/13/16 00:00 94 Room Air 11/13/16 00:00 36.8 76 18 119/58 (78) 96 Room Air 11/12/16 22:23 36.8 88 18 133/73 93 Room Air 11/12/16 19:05 85 20 121/69 93 Room Air 11/12/16 18:15 92 11/12/16 18:05 36.4 93 22 124/77 92 Room Air General Appearance: WD/WN, no apparent distress Eyes: PERRL ENT: hearing grossly normal Neck: supple Respiratory/Chest: lungs clear, normal breath sounds, no respiratory distress Cardiovascular: regular rate, rhythm Abdomen: normal bowel sounds, non tender, soft (no significant distention) Extremities: + pedal edema (trace LE edema bilaterally) Neurologic/Psych: alert, normal mood/affect, oriented x 3 Skin: normal color, no jaundice Laboratory Results Last 24 Hours Test 11/12/16 17:50 11/12/16 18:29 11/12/16 22:15 11/13/16 05:33 White Blood Count 15.55 K/uL Red Blood Count 4.02 M/uL Hemoglobin 12.4 g/dL Hematocrit 37.4 % Mean Corpuscular Volume 93.0 fL Mean Corpuscular Hemoglobin 30.8 pg Mean Corpuscular Hemoglobin Concent 33.2 g/dl Platelet Count 268 K/uL Neutrophils (%) (Auto) 78.9 % Lymphocytes (%) (Auto) 14.0 % Monocytes (%) (Auto) 5.8 % Eosinophils (%) (Auto) 0.8 % Basophils (%) (Auto) 0.2 % Neutrophils # (Auto) 12.27 K/uL Lymphocytes # (Auto) 2.17 K/uL Monocytes # (Auto) 0.90 K/uL Eosinophils # (Auto) 0.13 K/uL Basophils # (Auto) 0.03 K/uL Immature Granulocyte % (Auto) 0.3 % Immature Granulocyte # (Auto) 0.05 K/uL Anisocytosis PRESENT Echinocytes 1+ Sodium Level 143 mmol/L 145 mmol/L Potassium Level 4.8 mmol/L 4.5 mmol/L Chloride Level 109 mmol/L 110 mmol/L Carbon Dioxide Level 24 mmol/L 31 mmol/L Anion Gap 10.0 mmol/L 4.0 mmol/L Blood Urea Nitrogen 32 mg/dl 32 mg/dl Creatinine 2.50 mg/dl 2.40 mg/dl Est Creatinine Clear Calc Drug Dose 19.1 ml/min 19.1 ml/min Estimated GFR () 20.9 22.0 Estimated GFR (Non- 18.1 19.0 BUN/Creatinine Ratio 12.8 13.5 Random Glucose 144 mg/dl 125 mg/dl Calcium Level 8.7 mg/dl 8.5 mg/dl Magnesium Level 2.1 mg/dl Total Bilirubin 2.1 mg/dl Direct Bilirubin 1.1 mg/dl Aspartate Amino Transf (AST/SGOT) 106 U/L Alanine Aminotransferase (ALT/SGPT) 46 U/L Alkaline Phosphatase 187 U/L Total Creatine Kinase 30 U/L 40 U/L Creatine Kinase MB 1.5 ng/ml 3.8 ng/ml Creatine Kinase MB Ratio 5.0 9.5 Total Protein 7.0 gm/dl Albumin 2.4 gm/dl Lipase 222 U/L Thyroid Stimulating Hormone (TSH) 4.160 uIu/ml Bedside Troponin I 0.060 ng/ml Urine Color DK YELLOW Urine Appearance CLOUDY Urine pH 5.0 Urine Specific [place] 1.022 Urine Protein NEG Urine Glucose (UA) NEG Urine Ketones NEG Urine Occult Blood NEG Urine Nitrite NEG Urine Bilirubin NEG Urine Urobilinogen NEG Urine Leukocyte Esterase NEG Urine WBC (Auto) 1-5 /hpf Urine RBC (Auto) 0-4 /hpf Urine Hyaline Casts (Auto) 1-5 /lpf Urine Epithelial Cells (Auto) >30 /lpf Urine Bacteria (Auto) 2+ Urine Crystals TALC Urine Pathogenic Casts 0-3 GRANULAR CASTS /lpf Urine Yeast (Auto) PRESENT Troponin I 3.970 ng/ml Triglycerides Level 100 mg/dl Cholesterol Level 74 mg/dl HDL Cholesterol 12 mg/dl LDL Cholesterol, Calculated 42 mg/dl VLDL Cholesterol, Calculated 20 mg/dl Cholesterol/HDL Ratio 6.2 Test 11/13/16 12:00 11/13/16 12:08 Creatine Kinase MB Ratio Impression Patient is a 76 year old female with MORRISON cirrhosis admitted with weakness and fall Plan pt clinically feeling improved since admission no significant ascites by ultrasound, do not think additional paracentesis warranted at this time, pt also feels near her baseline, trace LE edema Appreciate nephrology assistance with diuretic managment in setting of CKD not alot to offer this admission from GI perspective. continue HTN meds/diuretics as per primary service and nephrology. low sodium diet continue routine out patient GI follow up. GI will sign off, please call with questions I saw and evaluated the patient. She has a history of cirrhosis from fatty infiltration of the liver. GI is consultED for questions regarding outpatient care Physical examination No obvious distress, no scleral icterus today, no JVD Impression: Patient with a history of cirrhosis from fatty infiltration of liver. She has a number of comorbid problems to include her chronic renal insufficiency which limits the dosing of diuretics Recommendations Low-sodium diet Appreciate nephrology input Consider addition of Aldactone 50 mg per day Please call with any questions or concerns during the hospital stay
--- NOTE | 2016-11-13 12:50 | ECHOCARDIOGRAM REPORT ---
*NOTICE TO RECEIVING [employer] This information is strictly Confidential and protected under [place] law. [place] law prohibits you from making any further disclosure of this information unless further disclosure is expressly permitted by the written consent of the person to whom it pertains or is authorized by law. A general authorization for the release of medical or other information is not sufficient for this purpose. Hospital accepts no responsibility if the information is made available to any other person, INCLUDING THE PATIENT. Interpretation Summary * Name: SANTIAGO JOHN Study Date: 11/13/2016 07:07 AM BP: 132/72 mmHg * Patient Location: C.2E\S\E205\S\1 HR: 84 * : 1940 (M/d/yyyy) Gender: Female Height: 64 in * Age: 76 yrs Ethnicity: [place] Weight: 153 lb * Ordering Physician: Louis Dickson * Performed By: Mirtha Jacobson * * Reason For Study: ELEVATED TROP * BSA: 1.7 m2 * -- Conclusions -- * Normal LV chamber size and wall thickness. * Normal LV systolic function, EF 60-65%. * No segmental left ventricular wall motion abnormalities are noted. * Grade I diastolic dysfunction. * Mild tricuspid regurgitation. * Small, anterior, loculated pericardial effusion is present without hemodynamic consequence. * Left pleural effusion is present. Procedure Details * A complete two-dimensional transthoracic echocardiogram was performed (2D, M-mode, Doppler and color flow Doppler). Left Ventricle * The left ventricle is normal in size. * There is normal left ventricular wall thickness. * Ejection Fraction = 65-70%. * Left ventricular systolic function is normal. * No segmental left ventricular wall motion abnormalities are noted. * The left ventricular wall motion is normal. Right Ventricle * The right ventricular cavity size is normal (basal dimension <4.2 cm in right ventricular apical 4-chamber view). * The right ventricular systolic function is normal as assessed by tricuspid annular plane systolic excursion (TAPSE) (normal >1.5 cm). Atria * The left atrial size is normal. * Right atrial size is normal. * No ASD detected; PFO is not assessed. Mitral Valve * The mitral valve is normal in structure and function. Tricuspid Valve * The tricuspid valve anatomy is normal. * There is no tricuspid stenosis. * There is mild tricuspid regurgitation. Aortic Valve * The aortic valve is normal in structure and function. Pulmonic Valve * The pulmonary valve is not well seen, but the Doppler examination is normal without significant regurgitation or stenosis. Great Vessels * The aortic root and proximal ascending aorta are normal sized. Pericardium/Pleural * Small pericardial effusion. * A loculated pericardial effusion is noted. * Moderate size left pleural effusion. Left Ventricular Diastolic Function * Grade I diastolic dysfunction, (abnormal relaxation pattern). MMode 2D Measurements and Calculations IVSd 1.0 cm IVSs 1.6 cm LVIDd 3.8 cm LVIDs 2.4 cm LVPWd 1.0 cm LVPWs 1.6 cm IVS/LVPW 0.99 FS 36.7 % EDV(Teich) 63.6 ml ESV(Teich) 20.8 ml EF(Teich) 67.2 % EDV(cubed) 56.7 ml ESV(cubed) 14.4 ml EF(cubed) 74.6 % % IVS thick 52.8 % % LVPW thick 50.6 % LV mass(C)d 124.9 grams LV mass(C)dI 71.5 grams/m\S\2 LV mass(C)s 132.0 grams LV mass(C)sI 75.6 grams/m\S\2 SV(Teich) 42.7 ml SI(Teich) 24.5 ml/m\S\2 SV(cubed) 42.3 ml SI(cubed) 24.2 ml/m\S\2 ACS 1.3 cm LA dimension 3.2 cm asc Aorta Diam 2.4 cm LVOT diam 1.7 cm LVOT area 2.3 cm\S\2 LVAd ap4 22.6 cm\S\2 LVLd ap4 6.7 cm EDV(MOD-sp4) 63.5 ml EDV(sp4-el) 64.6 ml LVAs ap4 11.2 cm\S\2 LVLs ap4 5.0 cm ESV(MOD-sp4) 20.7 ml ESV(sp4-el) 21.1 ml EF(MOD-sp4) 67.4 % EF(sp4-el) 67.4 % LVAd ap2 21.7 cm\S\2 LVLd ap2 7.3 cm EDV(MOD-sp2) 55.3 ml EDV(sp2-el) 54.8 ml LVAs ap2 10.1 cm\S\2 LVLs ap2 4.9 cm ESV(MOD-sp2) 17.1 ml ESV(sp2-el) 17.5 ml EF(MOD-sp2) 69.1 % EF(sp2-el) 68.0 % LVLd %diff 8.0 % EDV(MOD-bp) 62.1 ml LVLs %diff -1.89 % ESV(MOD-bp) 19.1 ml EF(MOD-bp) 69.2 % SV(MOD-sp4) 42.8 ml SI(MOD-sp4) 24.5 ml/m\S\2 SV(MOD-sp2) 38.2 ml SI(MOD-sp2) 21.9 ml/m\S\2 SV(MOD-bp) 43.0 ml SI(MOD-bp) 24.6 ml/m\S\2 SV(sp4-el) 43.6 ml SI(sp4-el) 24.9 ml/m\S\2 SV(sp2-el) 37.2 ml SI(sp2-el) 21.3 ml/m\S\2 Doppler Measurements and Calculations MV E max jackie 83.6 cm/sec MV A max jackie 108.4 cm/sec MV E/A 0.77 MV dec time 0.19 sec Ao V2 max 168.3 cm/sec Ao max PG 11.3 mmHg Ao max PG (full) 2.5 mmHg KURT(V,A) 2.1 cm\S\2 KURT(V,D) 2.1 cm\S\2 LV V1 max PG 8.9 mmHg LV V1 max 148.8 cm/sec PA V2 max 111.1 cm/sec PA max PG 4.9 mmHg TR max jackie 310.7 cm/sec
--- NOTE | 2016-11-13 12:51 | Progress Note ---
Subjective Date of Service: Nov 13, 2016. Subjective Pt evaluation today including: conversation w/ patient, conversation w/ family , physical exam, lab review, review of studies, review of inpatient medication list Saw/examined the patient in room 205 Feeling better this morning Family at bedside they state that she looks better than when she came in, has her "color" back Mild ankle pain, from her fall, but no other symptoms Depression - controlled Problem List Medical Problems: (1) Acute kidney injury Status: Acute (2) Acute on chronic renal insufficiency Status: Acute (3) Elevated troponin Status: Acute (4) Epigastric abdominal pain Status: Acute (5) Hiatal hernia Status: Acute (6) Nausea Status: Acute (7) Ureterolithiasis Status: Acute Review of Systems Constitutional: + weakness, No fever, No chills Respiratory: No cough, No sputum, No shortness of breath Cardiac: + edema, No chest pain Abdomen: No pain, No nausea, No vomiting, No diarrhea Heme: No abnormal bleeding/bruising Medications Current Inpatient Medications Medications (Trade) Dose Ordered Sig/Edilson Route Start Time Stop Time Status Last Admin Dose Admin Albuterol (Ventolin Hfa Inhaler) 2 puffs Q4 PRN INH 11/12/16 22:00 12/12/16 21:59 Atorvastatin Calcium (Lipitor Tab) 10 mg HS PO 11/13/16 21:00 12/13/16 20:59 Cholestyramine Resin (Questran Powder Light) 4 gm BID@,22 PO 11/12/16 22:00 12/12/16 21:59 11/13/16 10:31 4 GM Furosemide (Lasix Tab) 40 mg DAILY PO 11/13/16 09:00 12/13/16 08:59 11/13/16 07:16 40 MG Midodrine (Proamatine Tab) 5 mg TID@08,12,17 PO 11/13/16 08:00 12/13/16 07:59 11/13/16 07:15 5 MG Ondansetron HCl (Zofran Tab) 4 mg Q6H PRN PO 11/12/16 22:00 12/12/16 21:59 Pantoprazole Sodium (Protonix Tab) 40 mg DAILY PO 11/13/16 09:00 12/13/16 08:59 11/13/16 07:16 40 MG Buspirone HCl (Buspar Tab) 10 mg TID PO 11/13/16 09:00 12/13/16 08:59 11/13/16 07:15 10 MG Loperamide HCl (Imodium Cap) 2 mg Q12H PRN PO 11/12/16 22:00 12/12/16 21:59 Potassium/ Phosphorus/Sodium (Phospha 250 Neutral 155-852-130 Mg) 1 tab BID PO 11/13/16 09:00 12/13/16 08:59 11/13/16 07:16 1 TAB Mirtazapine (Remeron Tab) 15 mg HS PO 11/13/16 21:00 12/13/16 20:59 Albumin Human (Albumin 25%) 12.5 gm BID IV 11/13/16 10:30 11/16/16 10:29 11/13/16 10:37 12.5 GM Objective Vital Signs Date Time Temp Pulse Resp B/P (MAP) Pulse Ox O2 Delivery O2 Flow Rate FiO2 11/13/16 11:21 36.6 86 18 107/71 (83) 93 11/13/16 08:34 92 Room Air 11/13/16 07:49 36.9 87 18 121/ (40) 92 Room Air 59.0 11/13/16 04:00 94 Room Air 11/13/16 03:30 36.7 84 18 132/72 (92) 92 Room Air 11/13/16 00:00 94 Room Air 11/13/16 00:00 36.8 76 18 119/58 (78) 96 Room Air 11/12/16 22:23 36.8 88 18 133/73 93 Room Air 11/12/16 19:05 85 20 121/69 93 Room Air 11/12/16 18:15 92 11/12/16 18:05 36.4 93 22 124/77 92 Room Air Physical Exam General Appearance: no apparent distress Respiratory/Chest: chest non-tender, lungs clear, normal breath sounds, no respiratory distress, no accessory muscle use Cardiovascular: regular rate, rhythm, no murmur Abdomen: normal bowel sounds, non tender, soft Extremities: + pertinent finding (+2 pitting edema LLE, +1 pitting edema RLE) Laboratory Results Last 24 Hours Test 11/12/16 17:50 11/12/16 18:29 11/12/16 22:15 11/13/16 05:33 White Blood Count 15.55 K/uL Red Blood Count 4.02 M/uL Hemoglobin 12.4 g/dL Hematocrit 37.4 % Mean Corpuscular Volume 93.0 fL Mean Corpuscular Hemoglobin 30.8 pg Mean Corpuscular Hemoglobin Concent 33.2 g/dl Platelet Count 268 K/uL Neutrophils (%) (Auto) 78.9 % Lymphocytes (%) (Auto) 14.0 % Monocytes (%) (Auto) 5.8 % Eosinophils (%) (Auto) 0.8 % Basophils (%) (Auto) 0.2 % Neutrophils # (Auto) 12.27 K/uL Lymphocytes # (Auto) 2.17 K/uL Monocytes # (Auto) 0.90 K/uL Eosinophils # (Auto) 0.13 K/uL Basophils # (Auto) 0.03 K/uL Immature Granulocyte % (Auto) 0.3 % Immature Granulocyte # (Auto) 0.05 K/uL Anisocytosis PRESENT Echinocytes 1+ Sodium Level 143 mmol/L 145 mmol/L Potassium Level 4.8 mmol/L 4.5 mmol/L Chloride Level 109 mmol/L 110 mmol/L Carbon Dioxide Level 24 mmol/L 31 mmol/L Anion Gap 10.0 mmol/L 4.0 mmol/L Blood Urea Nitrogen 32 mg/dl 32 mg/dl Creatinine 2.50 mg/dl 2.40 mg/dl Est Creatinine Clear Calc Drug Dose 19.1 ml/min 19.1 ml/min Estimated GFR () 20.9 22.0 Estimated GFR (Non- 18.1 19.0 BUN/Creatinine Ratio 12.8 13.5 Random Glucose 144 mg/dl 125 mg/dl Calcium Level 8.7 mg/dl 8.5 mg/dl Magnesium Level 2.1 mg/dl Total Bilirubin 2.1 mg/dl Direct Bilirubin 1.1 mg/dl Aspartate Amino Transf (AST/SGOT) 106 U/L Alanine Aminotransferase (ALT/SGPT) 46 U/L Alkaline Phosphatase 187 U/L Total Creatine Kinase 30 U/L 40 U/L Creatine Kinase MB 1.5 ng/ml 3.8 ng/ml Creatine Kinase MB Ratio 5.0 9.5 Total Protein 7.0 gm/dl Albumin 2.4 gm/dl Lipase 222 U/L Thyroid Stimulating Hormone (TSH) 4.160 uIu/ml Bedside Troponin I 0.060 ng/ml Urine Color DK YELLOW Urine Appearance CLOUDY Urine pH 5.0 Urine Specific [place] 1.022 Urine Protein NEG Urine Glucose (UA) NEG Urine Ketones NEG Urine Occult Blood NEG Urine Nitrite NEG Urine Bilirubin NEG Urine Urobilinogen NEG Urine Leukocyte Esterase NEG Urine WBC (Auto) 1-5 /hpf Urine RBC (Auto) 0-4 /hpf Urine Hyaline Casts (Auto) 1-5 /lpf Urine Epithelial Cells (Auto) >30 /lpf Urine Bacteria (Auto) 2+ Urine Crystals TALC Urine Pathogenic Casts 0-3 GRANULAR CASTS /lpf Urine Yeast (Auto) PRESENT Troponin I 3.970 ng/ml Triglycerides Level 100 mg/dl Cholesterol Level 74 mg/dl HDL Cholesterol 12 mg/dl LDL Cholesterol, Calculated 42 mg/dl VLDL Cholesterol, Calculated 20 mg/dl Cholesterol/HDL Ratio 6.2 Test 11/13/16 12:00 11/13/16 12:08 Creatine Kinase MB Ratio Assessment and Plan This is a 76 year old female with a PMH of CKD stage IV, DM2, HTN, HLD, GERD, hiatal hernia, MORRISON cirrhosis presented with a fall and found to have elevated troponin and creatinine levels Chronic Kidney Disease stage IV appreciate nephrology input creatinine = 2.4 patient seems euvolemic Lasix 40mg PO tablet daily for now Albumin added as per nephrology monitor fluid status daily Elevated Troponin Level no chest pain possibly related to fall as well as kidney injury trend cardiac enzymes, check an echo Mechanical Fall in the setting of Orthostatic Hypotension agree with stopping Norvasc continue Midodrine monitor blood pressure check orthostatics MORRISON cirrhosis with some pleural effusion, likely hepatic hydrothorax stable, GI consulted Depression/Anxiety stopped Prozac, started Remeron patient states she is doing well, depression/anxiety controlled Hiatal Hernia/GERD nonsurgical continue PPI fulfillment coordinator consulted for possible protein shakes DM2 diet-controlled last Ha1c ~ 6.7% fulfillment coordinator consulted DVT ppx SCDs ambulation FULL CODE
[2016-11-13 13:02] LABS: CKMB/CK RATIO 9.2 (0-3.0)
[2016-11-13 19:40] LABS: CKMB/CK RATIO 8.7 (0-3.0)
[2016-11-13] MEDS: BOOST VANILLA PO SCH ×2 (19:57)
[2016-11-13] MEDS: MIRTAZAPINE TAB 15 MG TAB PO SCH (19:59)
[2016-11-13] MEDS: ATORVASTATIN 10 MG TAB PO SCH (20:00)
[2016-11-13] MEDS: LOPERAMIDE HCL 2 MG CAP PO PRN (21:06)
[2016-11-14] VITALS (8 sets, daily range): BP systolic 125–138; BP diastolic 68–83; PULSE 91–103; TEMP 37–37.1; O2SAT 92–94
[2016-11-14] MEDS: POT PHOSPHATE MONOBASIC W/ SOD TAB PO SCH ×2 (07:12→20:59)
[2016-11-14] MEDS: MIDODRINE 2.5 MG TAB PO SCH ×3 (07:12→17:03)
[2016-11-14] MEDS: PANTOprazole SOD 40 MG TAB PO SCH (07:12)
[2016-11-14] MEDS: FUROSEMIDE 20 MG TAB PO SCH (07:12)
[2016-11-14] MEDS: ALBUMIN HUMAN 25% 12.5 GM/50 ML VIAL IV SCH ×2 (07:20→20:58)
[2016-11-14 07:24] LABS: BUN/CREATININE RATIO 13.1 (10-20); CALCIUM 8.3 mg/dl (8.5-10.1); CREATININE 2.5 mg/dl (0.60-1.20); POTASSIUM 4.2 mmol/L (3.5-5.1)
[2016-11-14 07:25] LABS: PHOSPHORUS 3.7 mg/dl (2.5-4.9)
[2016-11-14 07:26] LABS: HEMATOCRIT 30.7 % (37-47); MEAN CELL VOLUME 91.1 fL (80-100); MEAN CORPUSCULAR HEMOGLOBIN 29.4 pg (25-34); MEAN CORPUSCULAR HGB CONC 32.2 g/dl (32-36); MEAN PLATELET VOLUME 11.2 fL (7.4-10.4); PLATELET COUNT 124 K/uL (130-400); RED BLOOD COUNT 3.37 M/uL (4.2-5.4); WHITE BLOOD COUNT 12.95 K/uL (4.8-10.8)
[2016-11-14 07:30] LABS: PLT ESTIMATE DECREASED
--- NOTE | 2016-11-14 09:19 | Nephrology Progress Note ---
Nephrology Progress Note Date of Service: Nov 14, 2016. Subjective 76 yo female with arturo/ckd and liver disease. has distention but is soft. pt comfortable. mild edema. pt tired today. did not sleep well. yesterday, pt was started on albumin to try to help mobilize third spacing. Objective Date Time Temp Pulse Resp B/P (MAP) Pulse Ox O2 Delivery O2 Flow Rate FiO2 11/14/16 07:04 37.1 91 17 130/73 (92) 92 Room Air 11/14/16 04:10 37.0 92 16 125/83 (97) 93 Room Air 11/14/16 04:00 94 Room Air 11/13/16 23:59 94 Room Air 11/13/16 23:00 36.8 85 18 124/67 (86) 93 Room Air 11/13/16 20:00 94 Room Air 11/13/16 19:43 36.8 90 18 129/83 (98) 94 Room Air 11/13/16 16:01 92 Room Air 11/13/16 15:46 36.8 86 16 112/67 (82) 94 Room Air 11/13/16 12:52 92 Room Air 11/13/16 11:21 36.6 86 18 107/71 (83) 93 Physical Exam: General-[id number] Eyes-no scleral icterus ENT-mmm Neck-supple Lungs-decreased breath sounds at right base Heart-rrr Abdomen-bs+ s/mild distention Extremities-+1 edema Neuro-nonfocal Current Inpatient Medications Medications (Trade) Dose Ordered Sig/Edilson Route Start Time Stop Time Status Last Admin Dose Admin Albuterol (Ventolin Hfa Inhaler) 2 puffs Q4 PRN INH 11/12/16 22:00 12/12/16 21:59 Atorvastatin Calcium (Lipitor Tab) 10 mg HS PO 11/13/16 21:00 12/13/16 20:59 11/13/16 20:00 10 MG Cholestyramine Resin (Questran Powder Light) 4 gm BID@10,22 PO 11/12/16 22:00 12/12/16 21:59 11/13/16 10:31 4 GM Furosemide (Lasix Tab) 40 mg DAILY PO 11/13/16 09:00 12/13/16 08:59 11/14/16 07:12 40 MG Midodrine (Proamatine Tab) 5 mg TID@08,, PO 11/13/16 08:00 12/13/16 07:59 11/14/16 07:12 5 MG Ondansetron HCl (Zofran Tab) 4 mg Q6H PRN PO 11/12/16 22:00 12/12/16 21:59 Pantoprazole Sodium (Protonix Tab) 40 mg DAILY PO 11/13/16 09:00 12/13/16 08:59 11/14/16 07:12 40 MG Buspirone HCl (Buspar Tab) 10 mg TID PO 11/13/16 09:00 12/13/16 08:59 11/14/16 07:12 10 MG Loperamide HCl (Imodium Cap) 2 mg Q12H PRN PO 11/12/16 22:00 12/12/16 21:59 11/13/16 21:06 2 MG Potassium/ Phosphorus/Sodium (Phospha 250 Neutral 155-852-130 Mg) 1 tab BID PO 11/13/16 09:00 12/13/16 08:59 11/14/16 07:12 1 TAB Mirtazapine (Remeron Tab) 15 mg HS PO 11/13/16 21:00 12/13/16 20:59 11/13/16 19:59 15 MG Albumin Human (Albumin 25%) 12.5 gm BID IV 11/13/16 10:30 11/16/16 10:29 11/14/16 07:20 12.5 GM Enteral Nutritional Formula (Boost) 1 can BID@1000,2000 PO 11/13/16 20:00 12/13/16 19:59 11/13/16 19:57 1 CAN Last 24 Hours Test 11/13/16 12:08 11/13/16 18:43 11/14/16 05:56 Total Creatine Kinase 39 U/L 39 U/L Creatine Kinase MB 3.6 ng/ml 3.4 ng/ml Creatine Kinase MB Ratio 9.2 8.7 Troponin I 4.040 ng/ml 4.050 ng/ml White Blood Count 12.95 K/uL Red Blood Count 3.37 M/uL Hemoglobin 9.9 g/dL Hematocrit 30.7 % Mean Corpuscular Volume 91.1 fL Mean Corpuscular Hemoglobin 29.4 pg Mean Corpuscular Hemoglobin Concent 32.2 g/dl RDW Standard Deviation 73.0 fL RDW Coefficient of Variation 22.3 % Platelet Count 124 K/uL Mean Platelet Volume 11.2 fL Platelet Estimate DECREASED Sodium Level 144 mmol/L Potassium Level 4.2 mmol/L Chloride Level 110 mmol/L Carbon Dioxide Level 25 mmol/L Anion Gap 9.0 mmol/L Blood Urea Nitrogen 33 mg/dl Creatinine 2.50 mg/dl Est Creatinine Clear Calc Drug Dose 18.5 ml/min Estimated GFR () 20.9 Estimated GFR (Non- 18.1 BUN/Creatinine Ratio 13.1 Random Glucose 163 mg/dl Calcium Level 8.3 mg/dl Phosphorus Level 3.7 mg/dl Vitamin B12 Level 1714 pg/mL 25-Hydroxy Vitamin D Total 21.6 ng/ml Assessment & Plan arturo on ckd-difficult with creatinine trend which varies based on volume status. ok with current creatinine. pt does not want dialysis if needed. for now, continue low rate of albumin and lasix. no spironolactone at this time. albumin 2.4 on admission. orthostatic hypotension-on midodrine. continue current medication.
[2016-11-14] MEDS: CHOLESTYRAMINE LIGHT 4 GM PKT PO SCH ×3 (10:00→21:04)
[2016-11-14] MEDS: BOOST VANILLA PO SCH ×4 (10:12→20:00)
--- NOTE | 2016-11-14 11:00 | Progress Note ---
Subjective Date of Service: Nov 14, 2016. Subjective Pt evaluation today including: conversation w/ patient, physical exam, lab review, review of studies, review of inpatient medication list Saw/examined the patient in room 205 she's doing well today No problems/issues today, denies fevers/chills, denies SOB/chest pain Problem List Medical Problems: (1) Acute kidney injury Status: Acute (2) Acute on chronic renal insufficiency Status: Acute (3) Elevated troponin Status: Acute (4) Epigastric abdominal pain Status: Acute (5) Hiatal hernia Status: Acute (6) Nausea Status: Acute (7) Ureterolithiasis Status: Acute Review of Systems Constitutional: No fever, No chills Respiratory: No cough, No sputum, No shortness of breath Cardiac: No chest pain Abdomen: No pain, No nausea, No vomiting, No diarrhea Heme: No abnormal bleeding/bruising Medications Current Inpatient Medications Medications (Trade) Dose Ordered Sig/Edilson Route Start Time Stop Time Status Last Admin Dose Admin Albuterol (Ventolin Hfa Inhaler) 2 puffs Q4 PRN INH 11/12/16 22:00 12/12/16 21:59 Atorvastatin Calcium (Lipitor Tab) 10 mg HS PO 11/13/16 21:00 12/13/16 20:59 11/13/16 20:00 10 MG Cholestyramine Resin (Questran Powder Light) 4 gm BID@ PO 11/12/16 22:00 12/12/16 21:59 11/13/16 10:31 4 GM Furosemide (Lasix Tab) 40 mg DAILY PO 11/13/16 09:00 12/13/16 08:59 11/14/16 07:12 40 MG Midodrine (Proamatine Tab) 5 mg TID@,, PO 11/13/16 08:00 12/13/16 07:59 11/14/16 07:12 5 MG Ondansetron HCl (Zofran Tab) 4 mg Q6H PRN PO 11/12/16 22:00 12/12/16 21:59 Pantoprazole Sodium (Protonix Tab) 40 mg DAILY PO 11/13/16 09:00 12/13/16 08:59 11/14/16 07:12 40 MG Buspirone HCl (Buspar Tab) 10 mg TID PO 11/13/16 09:00 8/31/17 08:59 11/14/16 07:12 10 MG Loperamide HCl (Imodium Cap) 2 mg Q12H PRN PO 11/12/16 22:00 12/12/16 21:59 11/13/16 21:06 2 MG Potassium/ Phosphorus/Sodium (Phospha 250 Neutral 155-852-130 Mg) 1 tab BID PO 11/13/16 09:00 12/13/16 08:59 11/14/16 07:12 1 TAB Mirtazapine (Remeron Tab) 15 mg HS PO 11/13/16 21:00 12/13/16 20:59 11/13/16 19:59 15 MG Albumin Human (Albumin 25%) 12.5 gm BID IV 11/13/16 10:30 11/16/16 10:29 11/14/16 07:20 12.5 GM Enteral Nutritional Formula (Boost) 1 can BID@1000,2000 PO 11/13/16 20:00 12/13/16 19:59 11/14/16 10:12 1 CAN Objective Vital Signs Date Time Temp Pulse Resp B/P (MAP) Pulse Ox O2 Delivery O2 Flow Rate FiO2 11/14/16 08:01 92 Room Air 11/14/16 07:04 37.1 91 17 130/73 (92) 92 Room Air 11/14/16 04:10 37.0 92 16 125/83 (97) 93 Room Air 11/14/16 04:00 94 Room Air 11/13/16 23:59 94 Room Air 11/13/16 23:00 36.8 85 18 124/67 (86) 93 Room Air 11/13/16 20:00 94 Room Air 11/13/16 19:43 36.8 90 18 129/83 (98) 94 Room Air 11/13/16 16:01 92 Room Air 11/13/16 15:46 36.8 86 16 112/67 (82) 94 Room Air 11/13/16 12:52 92 Room Air 11/13/16 11:21 36.6 86 18 107/71 (83) 93 Physical Exam General Appearance: no apparent distress Respiratory/Chest: chest non-tender, lungs clear, normal breath sounds, no respiratory distress, no accessory muscle use Cardiovascular: regular rate, rhythm, no murmur Abdomen: normal bowel sounds, non tender, soft, + distended Extremities: + pertinent finding (trace pitting edema b/l LE) Neurologic/Psychiatric: no motor/sensory deficits, alert, normal mood/affect Laboratory Results Last 24 Hours Test 11/13/16 12:08 11/13/16 18:43 11/14/16 05:56 Total Creatine Kinase 39 U/L 39 U/L Creatine Kinase MB 3.6 ng/ml 3.4 ng/ml Creatine Kinase MB Ratio 9.2 8.7 Troponin I 4.040 ng/ml 4.050 ng/ml White Blood Count 12.95 K/uL Red Blood Count 3.37 M/uL Hemoglobin 9.9 g/dL Hematocrit 30.7 % Mean Corpuscular Volume 91.1 fL Mean Corpuscular Hemoglobin 29.4 pg Mean Corpuscular Hemoglobin Concent 32.2 g/dl RDW Standard Deviation 73.0 fL RDW Coefficient of Variation 22.3 % Platelet Count 124 K/uL Mean Platelet Volume 11.2 fL Platelet Estimate DECREASED Sodium Level 144 mmol/L Potassium Level 4.2 mmol/L Chloride Level 110 mmol/L Carbon Dioxide Level 25 mmol/L Anion Gap 9.0 mmol/L Blood Urea Nitrogen 33 mg/dl Creatinine 2.50 mg/dl Est Creatinine Clear Calc Drug Dose 18.5 ml/min Estimated GFR () 20.9 Estimated GFR (Non- 18.1 BUN/Creatinine Ratio 13.1 Random Glucose 163 mg/dl Calcium Level 8.3 mg/dl Phosphorus Level 3.7 mg/dl Vitamin B12 Level 1714 pg/mL 25-Hydroxy Vitamin D Total 21.6 ng/ml Assessment and Plan This is a 76 year old female with a PMH of CKD stage IV, DM2, HTN, HLD, GERD, hiatal hernia, MORRISON cirrhosis presented with a fall and found to have elevated troponin and creatinine levels Chronic Kidney Disease stage IV 11/14 creatinine stable as per nephrology; okay with current creatinine level no dialysis as of yet continue albumin/Lasix for now Boost BID added as per passenger car inspector 11/13 appreciate nephrology input creatinine = 2.4 patient seems euvolemic Lasix 40mg PO tablet daily for now Albumin added as per nephrology monitor fluid status daily Elevated Troponin Level no chest pain, no EKG changes, no significant findings on echo possibly related to fall as well as kidney injury Mechanical Fall in the setting of Orthostatic Hypotension agree with stopping Norvasc continue Midodrine monitor blood pressure check orthostatics MORRISON cirrhosis with some pleural effusion, likely hepatic hydrothorax stable, GI consulted Depression/Anxiety stopped Prozac, started Remeron patient states she is doing well, depression/anxiety controlled Hiatal Hernia/GERD nonsurgical continue PPI passenger car inspector consulted for possible protein shakes DM2 diet-controlled last Ha1c ~ 6.7% passenger car inspector consulted DVT ppx SCDs ambulation FULL CODE d/c to rehab/SNF when authorized
[2016-11-14] MEDS: MIRTAZAPINE TAB 15 MG TAB PO SCH (20:59)
[2016-11-14] MEDS: ATORVASTATIN 10 MG TAB PO SCH (20:59)
[2016-11-14] MEDS: LOPERAMIDE HCL 2 MG CAP PO PRN (21:05)
[2016-11-15] VITALS (9 sets, daily range): BP systolic 107–138; BP diastolic 59–84; PULSE 90–102; TEMP 36.4–37; O2SAT 91–95
[2016-11-15 05:55] LABS: MEAN CORPUSCULAR HGB CONC 31.5 g/dl (32-36)
[2016-11-15 06:09] LABS: HEMATOCRIT 31.7 % (37-47); MEAN CELL VOLUME 91.6 fL (80-100); MEAN CORPUSCULAR HEMOGLOBIN 28.9 pg (25-34); RED BLOOD COUNT 3.46 M/uL (4.2-5.4); WHITE BLOOD COUNT 14.62 K/uL (4.8-10.8)
[2016-11-15 06:21] LABS: BUN/CREATININE RATIO 13.3 (10-20); CALCIUM 8.4 mg/dl (8.5-10.1); CREATININE 2.7 mg/dl (0.60-1.20); POTASSIUM 4.4 mmol/L (3.5-5.1)
[2016-11-15 06:36] LABS: MEAN PLATELET VOLUME 11.1 fL (7.4-10.4); PLATELET COUNT 102 K/uL (130-400)
[2016-11-15 06:38] LABS: PLT ESTIMATE DECREASED
[2016-11-15] MEDS: FUROSEMIDE 20 MG TAB PO SCH (07:10)
[2016-11-15] MEDS: POT PHOSPHATE MONOBASIC W/ SOD TAB PO SCH ×2 (07:10→19:50)
[2016-11-15] MEDS: MIDODRINE 2.5 MG TAB PO SCH ×3 (07:10→17:00)
[2016-11-15] MEDS: PANTOprazole SOD 40 MG TAB PO SCH (07:10)
[2016-11-15] MEDS: ALBUMIN HUMAN 25% 12.5 GM/50 ML VIAL IV SCH (07:24)
[2016-11-15] MEDS: BOOST VANILLA PO SCH ×4 (09:56→19:54)
[2016-11-15] MEDS: CHOLESTYRAMINE LIGHT 4 GM PKT PO SCH ×2 (09:56→20:55)
[2016-11-15] MEDS ORDERED: ALBUTEROL 0.5% NEB SOLN 2.5 MG/0.5 ML VIAL INH PRN (17:00)
[2016-11-15] MEDS ORDERED: IPRATROPIUM BROMIDE NEB SOLN 0.02% 2.5 ML VIAL INH PRN (17:00)
--- NOTE | 2016-11-15 17:03 | Nephrology Progress Note ---
Nephrology Progress Note Date of Service: Nov 15, 2016. Subjective 76 yo female with arturo/ckd and liver disease. pt resting today. pt noticing more wheezing recently. had physical therapy yesterday which went well. currently on albumin bid. Objective Date Time Temp Pulse Resp B/P (MAP) Pulse Ox O2 Delivery O2 Flow Rate FiO2 11/15/16 12:17 36.8 93 18 119/67 (84) 93 Room Air 11/15/16 12:03 92 Room Air 11/15/16 08:27 92 Room Air 11/15/16 08:04 37.0 92 17 136/84 (101) 91 Room Air 11/15/16 04:00 Room Air 11/15/16 03:52 37.0 90 18 136/81 (99) 92 Room Air 11/15/16 00:02 37.0 101 18 107/59 (75) 92 Room Air 11/15/16 00:00 Room Air 11/14/16 20:00 Room Air 11/14/16 19:37 37.0 100 22 138/68 (91) 92 Room Air Physical Exam: General-aaox3 Eyes-no scleral icterus ENT-mmm Neck-supple Lungs-+wheezing Heart-rrr Abdomen-bs+ s/mild distention Extremities-+1 edema Neuro-nonfocal Current Inpatient Medications Medications (Trade) Dose Ordered Sig/Edilson Route Start Time Stop Time Status Last Admin Dose Admin Albuterol (Ventolin Hfa Inhaler) 2 puffs Q4 PRN INH 11/12/16 22:00 12/12/16 21:59 Atorvastatin Calcium (Lipitor Tab) 10 mg HS PO 11/13/16 21:00 12/13/16 20:59 11/14/16 20:59 10 MG Cholestyramine Resin (Questran Powder Light) 4 gm BID@, PO 11/12/16 22:00 12/12/16 21:59 11/15/16 09:56 4 GM Furosemide (Lasix Tab) 40 mg DAILY PO 11/13/16 09:00 12/13/16 08:59 11/15/16 07:10 40 MG Midodrine (Proamatine Tab) 5 mg TID@08,12,17 PO 11/13/16 08:00 12/13/16 07:59 11/15/16 11:26 5 MG Ondansetron HCl (Zofran Tab) 4 mg Q6H PRN PO 11/12/16 22:00 12/12/16 21:59 Pantoprazole Sodium (Protonix Tab) 40 mg DAILY PO 11/13/16 09:00 12/13/16 08:59 11/15/16 07:10 40 MG Buspirone HCl (Buspar Tab) 10 mg TID PO 11/13/16 09:00 12/13/16 08:59 11/15/16 13:32 10 MG Loperamide HCl (Imodium Cap) 2 mg Q12H PRN PO 11/12/16 22:00 12/12/16 21:59 11/14/16 21:05 2 MG Potassium/ Phosphorus/Sodium (Phospha 250 Neutral 155-852-130 Mg) 1 tab BID PO 11/13/16 09:00 12/13/16 08:59 11/15/16 07:10 1 TAB Mirtazapine (Remeron Tab) 15 mg HS PO 11/13/16 21:00 12/13/16 20:59 11/14/16 20:59 15 MG Enteral Nutritional Formula (Boost) 1 can BID@1000,2000 PO 11/13/16 20:00 12/13/16 19:59 11/15/16 09:56 1 CAN Furosemide 40 mg/ Syringe 4 ml @ 4 mls/min NOW IV 11/15/16 17:00 12/15/16 16:59 UNV Last 24 Hours Test 11/15/16 05:36 White Blood Count 14.62 K/uL Red Blood Count 3.46 M/uL Hemoglobin 10.0 g/dL Hematocrit 31.7 % Mean Corpuscular Volume 91.6 fL Mean Corpuscular Hemoglobin 28.9 pg Mean Corpuscular Hemoglobin Concent 31.5 g/dl RDW Standard Deviation 72.7 fL RDW Coefficient of Variation 22.2 % Platelet Count 102 K/uL Mean Platelet Volume 11.1 fL Platelet Estimate DECREASED Sodium Level 143 mmol/L Potassium Level 4.4 mmol/L Chloride Level 110 mmol/L Carbon Dioxide Level 28 mmol/L Anion Gap 5.0 mmol/L Blood Urea Nitrogen 36 mg/dl Creatinine 2.70 mg/dl Est Creatinine Clear Calc Drug Dose 17.1 ml/min Estimated GFR () 19.1 Estimated GFR (Non- 16.5 BUN/Creatinine Ratio 13.3 Random Glucose 163 mg/dl Calcium Level 8.4 mg/dl Assessment & Plan arturo on ckd-difficult with creatinine trend which varies based on volume status. was on albumin and feel she is getting fluid overloaded. will stop the albumin , give additional dose of lasix 40 iv x 1 now and given rx for nebs prn. if any difficulty with breathing tonight, give additional lasix iv as needed.
[2016-11-15] MEDS ORDERED: FUROSEMIDE INJ 40 MG in SYRINGE 0 ML IV ONE (17:30)
--- NOTE | 2016-11-15 17:46 | Progress Note ---
Internal Med Progress Note Date of Service: Nov 15, 2016. Provider Documentation: SUBJECTIVE: feels much better today denies of an SOB or cough complains of occasional wheeze specially when getting out of bed or with movements OBJECTIVE: Vital Signs-as noted below Exam: General-no sign of distress, elderly female,pleasant Eyes-mildly icteric sclera ENT-nad Neck-no JVD noted Lungs-diminished Heart-regular , + 2 bilateral pitting edema Abdomen-soft ,non tender Extremities-pitting edema in both upper and lower ext Neuro-no focal deficit Lab data as noted below. ASSESSMENT & PLAN: This is a 76 year old female with a PMH of CKD stage IV, DM2, HTN, HLD, GERD, hiatal hernia, MORRISON cirrhosis presented with a fall and found to have elevated troponin and creatinine levels Chronic Kidney Disease stage IV creatinine remains stable~2 appreciate input form Nephrology no indication for dialysis as of yet Given Albumin for extra vascular fluid mobilization ordered for Lasix for evidence of fluid overload cont to monitor monitor fluid status daily Elevated Troponin Level no chest pain, no EKG changes, no significant findings on echo possible to advanced kidney disease /recant fall Mechanical Fall in the setting of Orthostatic Hypotension agree with stopping Norvasc continue Midodrine PT/OT eval appreciated pt ambulated with rolling walker with minimum assistance MORRISON cirrhosis with some pleural effusion, likely hepatic hydrothorax stable, GI consulted Depression/Anxiety stopped Prozac, started Remeron patient states she is doing well, depression/anxiety controlled Hiatal Hernia/GERD nonsurgical continue PPI electric lift truck driver consulted Boost BID added as per electric lift truck driver DM2 diet-controlled last Ha1c ~ 6.7% DVT ppx SCDs ambulation FULL CODE DISPOSITION PT ambulated 150 ft with PT minimal assist SNF declined by insurance plan for return home with home health visiting nurse Vital Signs: Date Time Temp Pulse Resp B/P (MAP) Pulse Ox O2 Delivery O2 Flow Rate FiO2 11/15/16 17:24 100 16 95 Room Air 11/15/16 16:09 36.4 90 20 138/70 (92) 92 Room Air 11/15/16 16:00 Room Air 11/15/16 12:17 36.8 93 18 119/67 (84) 93 Room Air 11/15/16 12:03 92 Room Air 11/15/16 08:27 92 Room Air 11/15/16 08:04 37.0 92 17 136/84 (101) 91 Room Air 11/15/16 04:00 Room Air 11/15/16 03:52 37.0 90 18 136/81 (99) 92 Room Air 11/15/16 00:02 37.0 101 18 107/59 (75) 92 Room Air 11/15/16 00:00 Room Air 11/14/16 20:00 Room Air 11/14/16 19:37 37.0 100 22 138/68 (91) 92 Room Air Lab Results: Results Past 24 Hours Test 11/15/16 05:36 Range/Units White Blood Count 14.62 4.8-10.8 K/uL Red Blood Count 3.46 4.2-5.4 M/uL Hemoglobin 10.0 12.0-16.0 g/dL Hematocrit 31.7 37-47 % Mean Corpuscular Volume 91.6 80-100 fL Mean Corpuscular Hemoglobin 28.9 25-34 pg Mean Corpuscular Hemoglobin Concent 31.5 32-36 g/dl RDW Standard Deviation 72.7 36.4-46.3 fL RDW Coefficient of Variation 22.2 11.5-14.5 % Platelet Count 102 130-400 K/uL Mean Platelet Volume 11.1 7.4-10.4 fL Platelet Estimate DECREASED Sodium Level 143 136-145 mmol/L Potassium Level 4.4 3.5-5.1 mmol/L Chloride Level 110 98-107 mmol/L Carbon Dioxide Level 28 21-32 mmol/L Anion Gap 5.0 3-11 mmol/L Blood Urea Nitrogen 36 7-18 mg/dl Creatinine 2.70 0.60-1.20 mg/dl Est Creatinine Clear Calc Drug Dose 17.1 ml/min Estimated GFR () 19.1 Estimated GFR (Non- 16.5 BUN/Creatinine Ratio 13.3 10-20 Random Glucose 163 70-99 mg/dl Calcium Level 8.4 8.5-10.1 mg/dl
[2016-11-15] MEDS: MIRTAZAPINE TAB 15 MG TAB PO SCH (19:50)
[2016-11-15] MEDS: ATORVASTATIN 10 MG TAB PO SCH (19:50)
[2016-11-16] VITALS (13 sets, daily range): BP systolic 123–143; BP diastolic 69–92; PULSE 75–100; TEMP 36.5–37.5; O2SAT 90–97
[2016-11-16] MEDS: PANTOprazole SOD 40 MG TAB PO SCH (07:48)
[2016-11-16] MEDS: MIDODRINE 2.5 MG TAB PO SCH ×3 (07:49→17:00)
[2016-11-16] MEDS: FUROSEMIDE 20 MG TAB PO SCH (07:50)
[2016-11-16] MEDS: POT PHOSPHATE MONOBASIC W/ SOD TAB PO SCH ×2 (07:50→20:08)
[2016-11-16] MEDS: CHOLESTYRAMINE LIGHT 4 GM PKT PO SCH ×2 (10:05→20:10)
--- NOTE | 2016-11-16 10:24 | Nephrology Progress Note ---
Nephrology Progress Note Date of Service: Nov 16, 2016. Subjective 76 yo female with arturo/ckd and liver disease. pt was wheezing more yesterday so stopped her albumin and gave her a dose of iv lasix last night. pt slept well last night but this morning, pt has nausea and appears depressed. was unable to eat her breakfast. Objective Date Time Temp Pulse Resp B/P (MAP) Pulse Ox O2 Delivery O2 Flow Rate FiO2 11/16/16 08:00 Room Air 11/16/16 07:32 37.2 98 17 143/71 (95) 90 Room Air 11/16/16 04:48 37.5 100 16 124/82 (96) 91 Room Air 11/16/16 04:00 92 Room Air 11/16/16 00:14 37.2 93 16 137/92 (107) 92 Room Air 11/16/16 00:01 92 Room Air 11/15/16 20:00 Room Air 11/15/16 19:51 36.9 102 20 127/76 (93) 93 Room Air 11/15/16 17:24 100 16 95 Room Air 11/15/16 16:09 36.4 90 20 138/70 (92) 92 Room Air 11/15/16 16:00 Room Air 11/15/16 12:17 36.8 93 18 119/67 (84) 93 Room Air 11/15/16 12:03 92 Room Air Physical Exam: General-aaox3 Eyes-no scleral icterus ENT-mmm Neck-supple Lungs-+rales at bases Heart-rrr Abdomen-bs+ s/+distention Extremities-+1 edema Neuro-nonfocal Current Inpatient Medications Medications (Trade) Dose Ordered Sig/Edilson Route Start Time Stop Time Status Last Admin Dose Admin Albuterol (Ventolin Hfa Inhaler) 2 puffs Q4 PRN INH 11/12/16 22:00 12/12/16 21:59 Atorvastatin Calcium (Lipitor Tab) 10 mg HS PO 11/13/16 21:00 12/13/16 20:59 11/15/16 19:50 10 MG Cholestyramine Resin (Questran Powder Light) 4 gm BID@10,22 PO 11/12/16 22:00 12/12/16 21:59 11/16/16 10:05 4 GM Furosemide (Lasix Tab) 40 mg DAILY PO 11/13/16 09:00 12/13/16 08:59 11/16/16 07:50 40 MG Midodrine (Proamatine Tab) 5 mg TID@08,,17 PO 11/13/16 08:00 12/13/16 07:59 11/16/16 07:49 5 MG Ondansetron HCl (Zofran Tab) 4 mg Q6H PRN PO 11/12/16 22:00 12/12/16 21:59 Pantoprazole Sodium (Protonix Tab) 40 mg DAILY PO 11/13/16 09:00 12/13/16 08:59 11/16/16 07:48 40 MG Buspirone HCl (Buspar Tab) 10 mg TID PO 11/13/16 09:00 12/13/16 08:59 11/16/16 07:49 10 MG Loperamide HCl (Imodium Cap) 2 mg Q12H PRN PO 11/12/16 22:00 12/12/16 21:59 11/14/16 21:05 2 MG Potassium/ Phosphorus/Sodium (Phospha 250 Neutral 155-852-130 Mg) 1 tab BID PO 11/13/16 09:00 12/13/16 08:59 11/16/16 07:50 1 TAB Mirtazapine (Remeron Tab) 15 mg HS PO 11/13/16 21:00 12/13/16 20:59 11/15/16 19:50 15 MG Enteral Nutritional Formula (Boost) 1 can BID@1000,2000 PO 11/13/16 20:00 12/13/16 19:59 11/15/16 19:54 1 CAN Albuterol Sulfate (Ventolin 0.5% 2.5MG/0.5ML Neb) 2.5 mg Q6R PRN INH 11/15/16 17:00 12/15/16 16:59 11/15/16 17:24 2.5 MG Ipratropium [place] (Atrovent 0.02% 0.5MG/2.5ML Neb) 0.5 mg Q6 PRN INH 11/15/16 17:00 12/15/16 16:59 11/15/16 17:24 0.5 MG Last 24 Hours Test 11/16/16 06:43 Bedside Glucose 172 mg/dl Assessment & Plan arturo on ckd-difficult with creatinine trend which varies based on volume status. was on albumin but now appears volume overloaded. given dose of iv lasix last night. will give her another dose of iv lasix today to help with rales. pt showing insight into her medical problems and that her quality of life may not improve. appears depressed. reminded her that if she needs someone to speak with ie psych, to let us know. pt appeared appreciative.
[2016-11-16] MEDS: BOOST VANILLA PO SCH ×4 (10:34→20:04)
--- NOTE | 2016-11-16 12:46 | Progress Note ---
Internal Med Progress Note Date of Service: Nov 16, 2016. Provider Documentation: SUBJECTIVE: mentions of having occasional wheeze specially in AM feels SOB , TAVARES requiring 02 supplement , not on home 02 no cough , no fever or chills appetite remains poor OBJECTIVE: Vital Signs-as noted below Exam: General-no sign of distress, elderly female,pleasant Eyes-mildly icteric sclera ENT-nad Neck-no JVD noted Lungs-diminished Heart-regular , + 2 bilateral pitting edema Abdomen-soft ,non tender Extremities-pitting edema in both upper and lower ext Neuro-no focal deficit Lab data as noted below. ASSESSMENT & PLAN: This is a 76 year old female with a PMH of CKD stage IV, DM2, HTN, HLD, GERD, hiatal hernia, MORRISON cirrhosis presented with a fall and found to have elevated troponin and creatinine levels Chronic Kidney Disease stage IV creatinine remains stable~2 appreciate input form Nephrology no indication for dialysis as of yet Given Albumin for extra vascular fluid mobilization -D/ed now cont Lasix PO ordered for IV Lasix for evidence of fluid overload monitor fluid status daily SOB /Wheeze ; possible due to vol overload cont with diuresis as per Nephrology ordered for Cont Neb tx -pt mentions of improvement of symptom will need 2 step exercise prior to return home pt also requests for home neb machine and Neb solutions Elevated Troponin Level no chest pain, no EKG changes, no significant findings on echo possible to advanced kidney disease /recant fall Mechanical Fall in the setting of Orthostatic Hypotension agree with stopping Norvasc continue Midodrine PT/OT eval appreciated pt ambulated with rolling walker with assistance MORRISON cirrhosis with some pleural effusion, likely hepatic hydrothorax stable, GI consulted Depression/Anxiety stopped Prozac, started Remeron patient states she is doing well, depression/anxiety controlled Hiatal Hernia/GERD nonsurgical continue PPI appeals manager consulted Boost BID added as per appeals manager DM2 diet-controlled last Ha1c ~ 6.7% DVT ppx SCDs ambulation FULL CODE DISPOSITION to be determined SNF declined by insurance repeat PT/OT eval ordered -pt appears to be deconditioned episodes of hypoxia with activity needs 2 step exercise prior to discharged Vital Signs: Date Time Temp Pulse Resp B/P (MAP) Pulse Ox O2 Delivery O2 Flow Rate FiO2 11/16/16 11:55 36.7 98 19 123/69 (87) 96 Nasal Cannula 2.0 11/16/16 08:00 Room Air 11/16/16 07:32 37.2 98 17 143/71 (95) 90 Room Air 11/16/16 04:48 37.5 100 16 124/82 (96) 91 Room Air 11/16/16 04:00 92 Room Air 11/16/16 00:14 37.2 93 16 137/92 (107) 92 Room Air 11/16/16 00:01 92 Room Air 11/15/16 20:00 Room Air 11/15/16 19:51 36.9 102 20 127/76 (93) 93 Room Air 11/15/16 17:24 100 16 95 Room Air 11/15/16 16:09 36.4 90 20 138/70 (92) 92 Room Air 11/15/16 16:00 Room Air Lab Results: Results Past 24 Hours Test 11/16/16 06:43 11/16/16 11:21 Range/Units Bedside Glucose 172 194 70-90 mg/dl
[2016-11-16] MEDS: FUROSEMIDE INJ 40 MG in SYRINGE 0 ML IV SCH (12:51)
[2016-11-16] MEDS: IPRATROPIUM BROMIDE NEB SOLN 0.02% 2.5 ML VIAL INH SCH ×2 (14:17→19:34)
[2016-11-16] MEDS: ALBUTEROL 0.5% NEB SOLN 2.5 MG/0.5 ML VIAL INH SCH ×2 (14:18→19:34)
[2016-11-16] MEDS: SODIUM CHLORIDE 0.9% 1000ML 1,000 ML IV SCH (15:12)
[2016-11-16] MEDS: ATORVASTATIN 10 MG TAB PO SCH (20:08)
[2016-11-16] MEDS: MIRTAZAPINE TAB 15 MG TAB PO SCH (20:08)
[2016-11-17] VITALS (15 sets, daily range): BP systolic 117–160; BP diastolic 61–82; PULSE 90–121; TEMP 36.4–37.2; O2SAT 91–97
[2016-11-17] MEDS: IPRATROPIUM BROMIDE NEB SOLN 0.02% 2.5 ML VIAL INH SCH ×4 (02:06→19:46)
[2016-11-17] MEDS: ALBUTEROL 0.5% NEB SOLN 2.5 MG/0.5 ML VIAL INH SCH ×4 (02:06→19:10)
[2016-11-17 07:00] LABS: BUN/CREATININE RATIO 14.5 (10-20); CALCIUM 8.3 mg/dl (8.5-10.1); CREATININE 2.9 mg/dl (0.60-1.20); POTASSIUM 4.8 mmol/L (3.5-5.1)
[2016-11-17] MEDS: MIDODRINE 2.5 MG TAB PO SCH (08:00)
[2016-11-17] MEDS: POT PHOSPHATE MONOBASIC W/ SOD TAB PO SCH ×2 (08:21→20:54)
[2016-11-17] MEDS: FUROSEMIDE INJ 40 MG in SYRINGE 0 ML IV SCH (08:21)
[2016-11-17] MEDS: PANTOprazole SOD 40 MG TAB PO SCH (08:21)
[2016-11-17] MEDS: FUROSEMIDE 20 MG TAB PO SCH (08:29)
[2016-11-17] MEDS: SODIUM CHLORIDE 0.9% 1000ML 1,000 ML IV SCH (09:13)
[2016-11-17] MEDS: CHOLESTYRAMINE LIGHT 4 GM PKT PO SCH ×2 (10:40→20:55)
[2016-11-17] MEDS: BOOST VANILLA PO SCH ×4 (10:41→20:00)
--- NOTE | 2016-11-17 10:44 | Nephrology Progress Note ---
Nephrology Progress Note Date of Service: Nov 17, 2016. Subjective 76 yo female with arturo/ckd and liver disease. pt was depressed yesterday and having nausea. not eating well. creatinine trending up. given iv fluids yesterday and ate all of her breakfast this morning and appears to be in a better mood. having some constipation as well. Objective Date Time Temp Pulse Resp B/P (MAP) Pulse Ox O2 Delivery O2 Flow Rate FiO2 11/17/16 08:14 37.1 111 24 147/81 (103) 96 Nasal Cannula 2.0 11/17/16 06:59 105 16 93 Nasal Cannula 2.0 11/17/16 04:55 37.2 101 16 148/63 (91) 91 Room Air 11/17/16 04:00 91 Room Air 11/17/16 02:06 90 16 91 Nasal Cannula 2.0 11/17/16 00:14 37.0 95 18 136/61 (86) 91 Room Air 11/17/16 00:01 96 Room Air 11/16/16 20:00 96 Room Air 11/16/16 19:41 36.5 96 20 125/75 (92) 96 Room Air 11/16/16 19:35 96 16 96 Nasal Cannula 2.0 11/16/16 16:00 97 Nasal Cannula 2.0 11/16/16 15:15 36.8 94 18 129/74 (92) 97 Nasal Cannula 2.0 11/16/16 14:17 75 16 92 Nasal Cannula 2.0 11/16/16 12:00 96 Nasal Cannula 2.0 11/16/16 11:55 36.7 98 19 123/69 (87) 96 Nasal Cannula 2.0 Physical Exam: General-aaox3 Eyes-no scleral icterus ENT-mmm Neck-supple Lungs-+rales at bases Heart-tachy Abdomen-bs+ s/+distention Extremities-+2 edema up her legs and into her hips Neuro-nonfocal Current Inpatient Medications Medications (Trade) Dose Ordered Sig/Edilson Route Start Time Stop Time Status Last Admin Dose Admin Albuterol (Ventolin Hfa Inhaler) 2 puffs Q4 PRN INH 11/12/16 22:00 12/12/16 21:59 Atorvastatin Calcium (Lipitor Tab) 10 mg HS PO 11/13/16 21:00 12/13/16 20:59 11/16/16 20:08 10 MG Cholestyramine Resin (Questran Powder Light) 4 gm BID@10,22 PO 11/12/16 22:00 12/12/16 21:59 11/16/16 10:05 4 GM Furosemide (Lasix Tab) 40 mg DAILY PO 11/13/16 09:00 12/13/16 08:59 11/17/16 08:29 40 MG Midodrine (Proamatine Tab) 5 mg TID@,, PO 11/13/16 08:00 12/13/16 07:59 11/16/16 12:01 5 MG Ondansetron HCl (Zofran Tab) 4 mg Q6H PRN PO 11/12/16 22:00 12/12/16 21:59 Pantoprazole Sodium (Protonix Tab) 40 mg DAILY PO 11/13/16 09:00 12/13/16 08:59 11/17/16 08:21 40 MG Buspirone HCl (Buspar Tab) 10 mg TID PO 11/13/16 09:00 12/13/16 08:59 11/17/16 08:21 10 MG Loperamide HCl (Imodium Cap) 2 mg Q12H PRN PO 11/12/16 22:00 12/12/16 21:59 11/14/16 21:05 2 MG Potassium/ Phosphorus/Sodium (Phospha 250 Neutral 155-852-130 Mg) 1 tab BID PO 11/13/16 09:00 12/13/16 08:59 11/17/16 08:21 1 TAB Mirtazapine (Remeron Tab) 15 mg HS PO 11/13/16 21:00 12/13/16 20:59 11/16/16 20:08 15 MG Enteral Nutritional Formula (Boost) 1 can BID@1000,2000 PO 11/13/16 20:00 12/13/16 19:59 11/16/16 20:04 1 CAN Furosemide 40 mg/ Syringe 4 ml @ 4 mls/min DAILY IV 11/16/16 12:30 12/16/16 12:29 11/17/16 08:21 4 MLS/MIN Albuterol Sulfate (Ventolin 0.5% 2.5MG/0.5ML Neb) 2.5 mg Q6R INH 11/16/16 15:00 12/15/16 16:59 11/17/16 06:58 2.5 MG Ipratropium [place] (Atrovent 0.02% 0.5MG/2.5ML Neb) 0.5 mg Q6R INH 11/16/16 15:00 12/16/16 14:59 11/17/16 06:58 0.5 MG Sodium Chloride 1,000 ml @ 50 mls/hr Q20H IV 11/16/16 14:30 12/16/16 14:29 11/17/16 09:13 50 MLS/HR Last 24 Hours Test 11/16/16 11:21 11/16/16 16:26 11/17/16 05:59 11/17/16 07:10 Bedside Glucose 194 mg/dl 180 mg/dl 167 mg/dl Sodium Level 143 mmol/L Potassium Level 4.8 mmol/L Chloride Level 110 mmol/L Carbon Dioxide Level 25 mmol/L Anion Gap 8.0 mmol/L Blood Urea Nitrogen 42 mg/dl Creatinine 2.90 mg/dl Est Creatinine Clear Calc Drug Dose 15.9 ml/min Estimated GFR () 17.5 Estimated GFR (Non- 15.1 BUN/Creatinine Ratio 14.5 Random Glucose 172 mg/dl Calcium Level 8.3 mg/dl Assessment & Plan arturo on ckd-difficult with creatinine trend which varies based on volume status. will stop the iv fluids with her edema in her legs. off midodrine with bp good. will stop the oral lasix and increase her iv lasix. ok with creatinine trending up since need to help optimize her volume status. may need to restart albumin to help mobilize the fluid as well. pt with wheezing in the morning when laying down but improves when she gets out of bed.
--- NOTE | 2016-11-17 11:49 | Progress Note ---
Internal Med Progress Note Date of Service: Nov 17, 2016. Provider Documentation: SUBJECTIVE: feels a bit better today nausea has improved was having wheeze this AM , improved after being OOB got breathing treatment multiple family members visiting pt and her prefers to SNF -[facility] for rehab prior to returning home requiring 2 L 02 cont was not on home 02 prior to admission will update Social service for repeat referral to [place] on Saturday OBJECTIVE: Vital Signs-as noted below Exam: General-no sign of distress, elderly female,pleasant Eyes-mildly icteric sclera ENT-nad Neck-no JVD noted Lungs-diminished Heart-regular , + 2 bilateral pitting edema Abdomen-soft ,non tender Extremities-pitting edema in both upper and lower ext Neuro-no focal deficit Lab data as noted below. ASSESSMENT & PLAN: This is a 76 year old female with a PMH of CKD stage IV, DM2, HTN, HLD, GERD, hiatal hernia, MORRISON cirrhosis presented with a fall and found to have elevated troponin and creatinine levels Chronic Kidney Disease stage IV creatinine remains stable~2 appreciate input form Nephrology no indication for dialysis as of yet started on IV Lasix for vol over load may have to resume Albumin tx as per Nephrology monitor fluid status daily SOB /Wheeze ; possible due to vol overload cont with diuresis as per Nephrology ordered for Cont Neb tx -pt mentions of improvement of symptom will need 2 step exercise prior to return home pt also requests for home neb machine and Neb solutions Elevated Troponin Level no chest pain, no EKG changes, no significant findings on echo possible to advanced kidney disease /recant fall Mechanical Fall in the setting of Orthostatic Hypotension agree with stopping Norvasc continue Midodrine PT/OT eval appreciated per OT 11/16/16 -high fall risk recommend ECF pt ambulated with rolling walker with assistance MORRISON cirrhosis with some pleural effusion, likely hepatic hydrothorax stable, GI consulted Depression/Anxiety stopped Prozac, started Remeron patient states she is doing well, depression/anxiety controlled Hiatal Hernia/GERD nonsurgical continue PPI sas developer consulted Boost BID added as per sas developer DM2 diet-controlled last Ha1c ~ 6.7% DVT ppx SCDs ambulation FULL CODE DISPOSITION to be determined SNF declined by insurance repeat PT/OT eval ordered -pt appears to be deconditioned per OT eval on 8/4/17 : high risk for fall , no safe to return home recommend ECF social service updated pt will benefit with Sk[facility] rehab prior to return home Vital Signs: Date Time Temp Pulse Resp B/P (MAP) Pulse Ox O2 Delivery O2 Flow Rate FiO2 11/17/16 08:14 37.1 111 24 147/81 (103) 96 Nasal Cannula 2.0 11/17/16 06:59 105 16 93 Nasal Cannula 2.0 11/17/16 04:55 37.2 101 16 148/63 (91) 91 Room Air 11/17/16 04:00 91 Room Air 11/17/16 02:06 90 16 91 Nasal Cannula 2.0 11/17/16 00:14 37.0 95 18 136/61 (86) 91 Room Air 11/17/16 00:01 96 Room Air 11/16/16 20:00 96 Room Air 11/16/16 19:41 36.5 96 20 125/75 (92) 96 Room Air 11/16/16 19:35 96 16 96 Nasal Cannula 2.0 11/16/16 16:00 97 Nasal Cannula 2.0 11/16/16 15:15 36.8 94 18 129/74 (92) 97 Nasal Cannula 2.0 11/16/16 14:17 75 16 92 Nasal Cannula 2.0 Lab Results: Results Past 24 Hours Test 11/16/16 16:26 11/17/16 05:59 11/17/16 07:10 11/17/16 11:15 Range/Units Bedside Glucose 180 167 195 70-90 mg/dl Sodium Level 143 136-145 mmol/L Potassium Level 4.8 3.5-5.1 mmol/L Chloride Level 110 98-107 mmol/L Carbon Dioxide Level 25 21-32 mmol/L Anion Gap 8.0 3-11 mmol/L Blood Urea Nitrogen 42 7-18 mg/dl Creatinine 2.90 0.60-1.20 mg/dl Est Creatinine Clear Calc Drug Dose 15.9 ml/min Estimated GFR () 17.5 Estimated GFR (Non- 15.1 BUN/Creatinine Ratio 14.5 10-20 Random Glucose 172 70-99 mg/dl Calcium Level 8.3 8.5-10.1 mg/dl
[2016-11-17] MEDS ORDERED: DEXTROSE 50% 50 ML SYR IV PRN (12:45)
[2016-11-17] MEDS ORDERED: GLUCOSE 10 TABS/TUBE PO PRN (12:45)
[2016-11-17] MEDS ORDERED: GLUCAGON FOR INJ 1 MG VIAL SQ PRN (12:45)
[2016-11-17] MEDS ORDERED: POLYETHYLENE (MIRALAX) 17 GM PACK PO PRN (12:45)
[2016-11-17] MEDS ORDERED: GLUCOSE 40% GEL 15 GM TUBE PO PRN (12:45)
[2016-11-17] MEDS: ALBUMIN 25% 50 ML with FUROSEMIDE INJ 40 MG IV SCH ×4 (13:35→20:55)
[2016-11-17] MEDS: INSULIN HUMAN REGULAR SC SCH ×3 (13:44→20:57)
[2016-11-17] MEDS: MIRTAZAPINE TAB 15 MG TAB PO SCH (20:54)
[2016-11-17] MEDS: ATORVASTATIN 10 MG TAB PO SCH (20:54)
[2016-11-17] MEDS: DOCUSATE SODIUM 100 MG CAP PO SCH (20:54)
[2016-11-18] VITALS (10 sets, daily range): BP systolic 124–157; BP diastolic 55–92; PULSE 97–114; TEMP 36.4–37.1; O2SAT 92–97
[2016-11-18] MEDS: IPRATROPIUM BROMIDE NEB SOLN 0.02% 2.5 ML VIAL INH SCH ×4 (01:39→19:13)
[2016-11-18] MEDS: ALBUTEROL 0.5% NEB SOLN 2.5 MG/0.5 ML VIAL INH SCH ×4 (01:39→19:13)
[2016-11-18 07:27] LABS: BUN/CREATININE RATIO 16.9 (10-20); CALCIUM 8.8 mg/dl (8.5-10.1); POTASSIUM 4.6 mmol/L (3.5-5.1)
[2016-11-18 07:28] LABS: PHOSPHORUS 4.4 mg/dl (2.5-4.9)
[2016-11-18] MEDS: DOCUSATE SODIUM 100 MG CAP PO SCH ×2 (07:41→21:16)
[2016-11-18] MEDS: PANTOprazole SOD 40 MG TAB PO SCH (07:41)
[2016-11-18] MEDS: POT PHOSPHATE MONOBASIC W/ SOD TAB PO SCH ×2 (07:41→21:16)
--- NOTE | 2016-11-18 09:24 | Progress Note ---
Medicine Progress Note Date & Time of Visit: Nov 18, 2016 at 08:54. Subjective Pt was seen and examined Lying in bed with no distress Pt said that she feels a little better today She said that she walked to use the bathroom today with no problem she is not wheezing this morning Denies any chest pain, palpitation, dizziness Objective Last 8 Hrs Date Time Temp Pulse Resp B/P (MAP) Pulse Ox O2 Delivery O2 Flow Rate FiO2 11/18/16 07:33 37.1 100 20 149/92 (111) 97 Nasal Cannula 2.0 11/18/16 07:01 97 16 97 Nasal Cannula 2.0 11/18/16 04:36 36.9 106 18 145/73 (97) 92 Nasal Cannula 11/18/16 04:00 Nasal Cannula 2.0 11/18/16 01:39 99 16 96 Nasal Cannula 2.0 Physical Exam: General- No acute distress Head- atraumatic Eyes- PERRL, EOMI ENT- oropharynx clear Neck- supple, trachea midline Lungs- decrease breath sound Heart- regular rhythm, tachycardia Abdomen- normal bowel sounds, soft Extremities- no calf tenderness, + 2 edema BLE Neuro- alert, oriented x 3; PERRL, EOMI; no facial palsy Skin- warm & dry Laboratory Results: Last 24 Hours Test 11/17/16 11:15 11/17/16 16:24 11/17/16 20:13 11/18/16 06:40 Bedside Glucose 195 mg/dl 256 mg/dl 227 mg/dl Sodium Level 144 mmol/L Potassium Level 4.6 mmol/L Chloride Level 111 mmol/L Carbon Dioxide Level 25 mmol/L Anion Gap 8.0 mmol/L Blood Urea Nitrogen 51 mg/dl Creatinine 3.00 mg/dl Est Creatinine Clear Calc Drug Dose 15.4 ml/min Estimated GFR () 16.8 Estimated GFR (Non- 14.5 BUN/Creatinine Ratio 16.9 Random Glucose 184 mg/dl Calcium Level 8.8 mg/dl Phosphorus Level 4.4 mg/dl Test 11/18/16 06:55 Bedside Glucose 177 mg/dl Assessment & Plan This is a 76 year old female with a PMH of CKD stage IV, DM2, HTN, HLD, GERD, hiatal hernia, MORRISON cirrhosis presented with a fall and found to have elevated troponin and creatinine levels Chronic Kidney Disease stage IV creatinine on admission 2.5 Creatine on 11/01/16 was 1.7 creatine today worsening to 3 Nephrology on board No indication for dialysis as this time Received IV lasix for volume overload Case discussed with Dr. Seo van helper that recommended to continue albumin with lasix Will consider to decrease the lasix to 20mg since her kidney function worsening Continue monitor BMP SOB /Wheeze ; possible due to vol overload cont with diuresis as per Nephrology will need 2 step exercise before discharge Continue neb treatment Will give a script for a nebulizer machine on discharge No wheezing on exam today clinically improved Elevated Troponin Level Possible related to recent fall and elevated creatine no chest pain, no EKG changes, no significant findings on echo Stable Mechanical Fall in the setting of Orthostatic Hypotension Norvasc was discontinued Midodrine was discontinued due to elevated BP Continue PT/OT Fall precaution Consider placement for inpatient rehab MORRISON cirrhosis with some pleural effusion, likely hepatic hydrothorax GI was consulted no additional paracentesis needed stable Thrombocytopenia Related to MORRISON ascites Platelet 102 on 11/15 No sign of bleeding Continue monitor cbc Depression/Anxiety Prozac was discontinued Continue Remeron stable Hiatal Hernia/GERD nonsurgical continue PPI scale adjuster consulted Boost BID added as per scale adjuster DM2 diet-controlled last Ha1c ~ 6.4% on 09/29 DVT ppx SCDs ambulation CODE STATUS FULL CODE DISPOSITION SNF declined by insurance repeat PT/OT eval ordered -pt appears to be deconditioned per OT eval on 11/16/16 : high risk for fall , no safe to return home recommend ECF social service updated pt will benefit with [facility] rehab prior to return home Consultants: Nephrology Current Inpatient Medications: Current Inpatient Medications Medications (Trade) Dose Ordered Sig/Edilson Route Start Time Stop Time Status Last Admin Dose Admin Albuterol (Ventolin Hfa Inhaler) 2 puffs Q4 PRN INH 11/12/16 22:00 12/12/16 21:59 Atorvastatin Calcium (Lipitor Tab) 10 mg HS PO 11/13/16 21:00 12/13/16 20:59 11/17/16 20:54 10 MG Cholestyramine Resin (Questran Powder Light) 4 gm BID@10,22 PO 11/12/16 22:00 12/12/16 21:59 11/17/16 10:40 4 GM Ondansetron HCl (Zofran Tab) 4 mg Q6H PRN PO 11/12/16 22:00 12/12/16 21:59 Pantoprazole Sodium (Protonix Tab) 40 mg DAILY PO 11/13/16 09:00 12/13/16 08:59 11/18/16 07:41 40 MG Buspirone HCl (Buspar Tab) 10 mg TID PO 11/13/16 09:00 12/13/16 08:59 11/18/16 07:41 10 MG Loperamide HCl (Imodium Cap) 2 mg Q12H PRN PO 11/12/16 22:00 12/12/16 21:59 11/14/16 21:05 2 MG Potassium/ Phosphorus/Sodium (Phospha 250 Neutral 155-852-130 Mg) 1 tab BID PO 11/13/16 09:00 12/13/16 08:59 11/18/16 07:41 1 TAB Mirtazapine (Remeron Tab) 15 mg HS PO 11/13/16 21:00 12/13/16 20:59 11/17/16 20:54 15 MG Enteral Nutritional Formula (Boost) 1 can BID@1000,2000 PO 11/13/16 20:00 12/13/16 19:59 11/17/16 20:00 1 CAN Albuterol Sulfate (Ventolin 0.5% 2.5MG/0.5ML Neb) 2.5 mg Q6R INH 11/16/16 15:00 12/15/16 16:59 11/18/16 07:01 2.5 MG Ipratropium [place] (Atrovent 0.02% 0.5MG/2.5ML Neb) 0.5 mg Q6R INH 11/16/16 15:00 12/16/16 14:59 11/18/16 07:01 0.5 MG Furosemide 40 mg/ Albumin Human 54 ml @ 54 mls/hr BID IV 11/17/16 11:30 11/20/16 11:29 11/17/16 20:55 54 MLS/HR Insulin Human Regular (novoLIN-R) SLIDING SCALE IF C... ACHS SC 11/17/16 16:15 12/17/16 16:14 11/17/16 20:57 2 UNITS Glucose (Glucose 40% Gel) 15-30 GRAMS 15 GRAMS... UD PRN PO 11/17/16 12:45 12/17/16 12:44 Glucose (Glucose Chew Tab) 4-8 Tablets 4 Tabl... UD PRN PO 11/17/16 12:45 12/17/16 12:44 Dextrose (Dextrose 50% 50ML Syringe) 25-50ML OF 50% DW IV FOR... UD PRN IV 11/17/16 12:45 12/17/16 12:44 Glucagon (Glucagon Inj) 1 mg UD PRN SQ 11/17/16 12:45 12/17/16 12:44 Polyethylene (Miralax Powder Packet) 17 gm DAILY PRN PO 11/17/16 12:45 12/17/16 12:44 Docusate Sodium (coLACE CAP) 100 mg BID PO 11/17/16 21:00 12/17/16 20:59 11/18/16 07:41 100 MG
[2016-11-18] MEDS: ALBUMIN 25% 50 ML with FUROSEMIDE INJ 40 MG IV SCH ×4 (09:40→21:16)
[2016-11-18] MEDS: INSULIN HUMAN REGULAR SC SCH ×4 (09:43→21:18)
[2016-11-18 09:58] LABS: MEAN CORPUSCULAR HGB CONC 32.9 g/dl (32-36)
[2016-11-18 10:08] LABS: HEMATOCRIT 30.1 % (37-47); MEAN CELL VOLUME 92.9 fL (80-100); MEAN CORPUSCULAR HEMOGLOBIN 30.6 pg (25-34); RED BLOOD COUNT 3.24 M/uL (4.2-5.4); WHITE BLOOD COUNT 13.75 K/uL (4.8-10.8)
[2016-11-18 10:23] LABS: PLATELET COUNT 88 K/uL (130-400); PLT ESTIMATE DECREASED
[2016-11-18] MEDS: CHOLESTYRAMINE LIGHT 4 GM PKT PO SCH ×2 (10:31→21:20)
[2016-11-18] MEDS: BOOST VANILLA PO SCH ×4 (10:31→20:00)
[2016-11-18] MEDS: ATORVASTATIN 10 MG TAB PO SCH (21:16)
[2016-11-18] MEDS: MIRTAZAPINE TAB 15 MG TAB PO SCH (21:16)
[2016-11-19] VITALS (12 sets, daily range): BP systolic 122–145; BP diastolic 64–87; PULSE 102–115; TEMP 36.5–36.9; O2SAT 93–97
[2016-11-19] MEDS: ALBUTEROL 0.5% NEB SOLN 2.5 MG/0.5 ML VIAL INH SCH ×4 (01:41→19:34)
[2016-11-19] MEDS: IPRATROPIUM BROMIDE NEB SOLN 0.02% 2.5 ML VIAL INH SCH ×4 (01:41→19:34)
[2016-11-19 07:16] LABS: MEAN CORPUSCULAR HGB CONC 32.9 g/dl (32-36)
[2016-11-19 07:44] LABS: CALCIUM 9.3 mg/dl (8.5-10.1); CREATININE 2.9 mg/dl (0.60-1.20); POTASSIUM 4.7 mmol/L (3.5-5.1)
[2016-11-19 07:49] LABS: HEMATOCRIT 32.2 % (37-47); MEAN CELL VOLUME 92.5 fL (80-100); MEAN CORPUSCULAR HEMOGLOBIN 30.5 pg (25-34); RED BLOOD COUNT 3.48 M/uL (4.2-5.4); WHITE BLOOD COUNT 16.63 K/uL (4.8-10.8)
[2016-11-19 07:57] LABS: MEAN PLATELET VOLUME 11.9 fL (7.4-10.4); PLATELET COUNT 92 K/uL (130-400)
[2016-11-19 08:00] LABS: PLT ESTIMATE DECREASED
--- NOTE | 2016-11-19 08:22 | Nephrology Progress Note ---
Nephrology Progress Note Date of Service: Nov 19, 2016. Subjective 76 yo female with arturo/ckd and liver disease. pt had some reflux last night so had difficulty sleeping. pt feels her leg swelling is improving. pt interested in rehab. Objective Date Time Temp Pulse Resp B/P (MAP) Pulse Ox O2 Delivery O2 Flow Rate FiO2 11/19/16 08:08 36.9 111 19 122/65 (84) 95 Nasal Cannula 2.0 11/19/16 08:00 Nasal Cannula 2.0 11/19/16 07:04 110 16 93 Nasal Cannula 2.0 11/19/16 04:00 Nasal Cannula 2.0 11/19/16 03:45 36.9 104 18 137/64 (88) 96 Nasal Cannula 2.0 11/19/16 01:41 104 16 96 Nasal Cannula 2.0 11/19/16 00:02 Nasal Cannula 2.0 11/19/16 00:00 36.9 109 20 139/87 (104) 97 Nasal Cannula 2.0 11/18/16 20:29 36.8 114 20 153/87 (109) 96 Nasal Cannula 2.0 11/18/16 20:00 Nasal Cannula 2.0 11/18/16 19:10 111 16 95 Nasal Cannula 2.0 11/18/16 16:00 Nasal Cannula 2.0 11/18/16 15:25 36.4 109 18 128/55 (79) 97 Nasal Cannula 2.0 11/18/16 14:15 36.9 103 20 157/82 (107) 95 2.0 11/18/16 14:05 108 16 96 Nasal Cannula 2.0 11/18/16 12:00 Nasal Cannula 2.0 Physical Exam: General-[id number] Eyes-no scleral icterus ENT-mmm Neck-supple Lungs-+expiratory wheeze Heart-tachycardia Abdomen-bs+ s/+distention Extremities-+1 to 2 edema up her legs Neuro-nonfocal Current Inpatient Medications Medications (Trade) Dose Ordered Sig/Edilson Route Start Time Stop Time Status Last Admin Dose Admin Albuterol (Ventolin Hfa Inhaler) 2 puffs Q4 PRN INH 11/12/16 22:00 12/12/16 21:59 Atorvastatin Calcium (Lipitor Tab) 10 mg HS PO 11/13/16 21:00 12/13/16 20:59 11/18/16 21:16 10 MG Cholestyramine Resin (Questran Powder Light) 4 gm BID@10,22 PO 11/12/16 22:00 12/12/16 21:59 11/18/16 10:31 4 GM Ondansetron HCl (Zofran Tab) 4 mg Q6H PRN PO 11/12/16 22:00 12/12/16 21:59 Pantoprazole Sodium (Protonix Tab) 40 mg DAILY PO 11/13/16 09:00 12/13/16 08:59 11/18/16 07:41 40 MG Buspirone HCl (Buspar Tab) 10 mg TID PO 11/13/16 09:00 12/13/16 08:59 11/18/16 21:16 10 MG Loperamide HCl (Imodium Cap) 2 mg Q12H PRN PO 11/12/16 22:00 12/12/16 21:59 11/14/16 21:05 2 MG Potassium/ Phosphorus/Sodium (Phospha 250 Neutral 155-852-130 Mg) 1 tab BID PO 11/13/16 09:00 12/13/16 08:59 11/18/16 21:16 1 TAB Mirtazapine (Remeron Tab) 15 mg HS PO 11/13/16 21:00 12/13/16 20:59 11/18/16 21:16 15 MG Enteral Nutritional Formula (Boost) 1 can BID@1000,2000 PO 11/13/16 20:00 12/13/16 19:59 11/18/16 20:00 1 CAN Albuterol Sulfate (Ventolin 0.5% 2.5MG/0.5ML Neb) 2.5 mg Q6R INH 11/16/16 15:00 12/15/16 16:59 11/19/16 07:03 2.5 MG Ipratropium [place] (Atrovent 0.02% 0.5MG/2.5ML Neb) 0.5 mg Q6R INH 11/16/16 15:00 12/16/16 14:59 11/19/16 07:03 0.5 MG Furosemide 40 mg/ Albumin Human 54 ml @ 54 mls/hr BID IV 11/17/16 11:30 11/20/16 11:29 11/18/16 21:16 54 MLS/HR Insulin Human Regular (novoLIN-R) SLIDING SCALE IF C... ACHS SC 11/17/16 16:15 12/17/16 16:14 11/18/16 21:18 2 UNITS Glucose (Glucose 40% Gel) 15-30 GRAMS 15 GRAMS... UD PRN PO 11/17/16 12:45 12/17/16 12:44 Glucose (Glucose Chew Tab) 4-8 Tablets 4 Tabl... UD PRN PO 11/17/16 12:45 12/17/16 12:44 Dextrose (Dextrose 50% 50ML Syringe) 25-50ML OF 50% DW IV FOR... UD PRN IV 11/17/16 12:45 12/17/16 12:44 Glucagon (Glucagon Inj) 1 mg UD PRN SQ 11/17/16 12:45 12/17/16 12:44 Polyethylene (Miralax Powder Packet) 17 gm DAILY PRN PO 11/17/16 12:45 12/17/16 12:44 Docusate Sodium (coLACE CAP) 100 mg BID PO 11/17/16 21:00 12/17/16 20:59 11/18/16 21:16 100 MG Last 24 Hours Test 11/18/16 09:32 11/18/16 11:38 11/18/16 16:21 11/18/16 20:33 White Blood Count 13.75 K/uL Red Blood Count 3.24 M/uL Hemoglobin 9.9 g/dL Hematocrit 30.1 % Mean Corpuscular Volume 92.9 fL Mean Corpuscular Hemoglobin 30.6 pg Mean Corpuscular Hemoglobin Concent 32.9 g/dl RDW Standard Deviation 74.7 fL RDW Coefficient of Variation 22.4 % Platelet Count 88 K/uL Mean Platelet Volume 11.0 fL Platelet Estimate DECREASED Bedside Glucose 194 mg/dl 202 mg/dl 193 mg/dl Test 11/19/16 06:33 11/19/16 06:36 White Blood Count 16.63 K/uL Red Blood Count 3.48 M/uL Hemoglobin 10.6 g/dL Hematocrit 32.2 % Mean Corpuscular Volume 92.5 fL Mean Corpuscular Hemoglobin 30.5 pg Mean Corpuscular Hemoglobin Concent 32.9 g/dl RDW Standard Deviation 75.1 fL RDW Coefficient of Variation 22.5 % Platelet Count 92 K/uL Mean Platelet Volume 11.9 fL Platelet Estimate DECREASED Sodium Level 145 mmol/L Potassium Level 4.7 mmol/L Chloride Level 110 mmol/L Carbon Dioxide Level 26 mmol/L Anion Gap 9.0 mmol/L Blood Urea Nitrogen 49 mg/dl Creatinine 2.90 mg/dl Est Creatinine Clear Calc Drug Dose 16.1 ml/min Estimated GFR () 17.5 Estimated GFR (Non- 15.1 BUN/Creatinine Ratio 17.0 Random Glucose 191 mg/dl Calcium Level 9.3 mg/dl Bedside Glucose 183 mg/dl Assessment & Plan arturo on ckd-creatinine in the 2.9 to 3 range. ok with current creatinine as we try to optimize volume status. abdomen distended but leg edema is much better compared to a couple of days ago. usually with wheezing when laying flat but improves when she gets up. pt also states she is feeling better. continue current diuretics and switch to lasix 80 po bid upon discharge.
[2016-11-19 08:23] LABS: ESTIMATED AVERAGE GLUCOSE 148 mg/dl; HA1C FLAG Normal (Normal)
[2016-11-19] MEDS: INSULIN HUMAN REGULAR SC SCH ×4 (08:38→20:54)
[2016-11-19] MEDS: PANTOprazole SOD 40 MG TAB PO SCH (08:42)
[2016-11-19] MEDS: DOCUSATE SODIUM 100 MG CAP PO SCH ×2 (08:42→19:54)
[2016-11-19] MEDS: POT PHOSPHATE MONOBASIC W/ SOD TAB PO SCH ×2 (08:43→19:54)
--- NOTE | 2016-11-19 09:28 | Progress Note ---
Medicine Progress Note Date & Time of Visit: Nov 19, 2016 at 09:15. Subjective Pt was seen and examined lying in bed with no distress Pt said that she feels fine She denies any chest pain, palpitation, dizziness Objective Last 8 Hrs Date Time Temp Pulse Resp B/P (MAP) Pulse Ox O2 Delivery O2 Flow Rate FiO2 11/19/16 08:08 36.9 111 19 122/65 (84) 95 Nasal Cannula 2.0 11/19/16 08:00 Nasal Cannula 2.0 11/19/16 07:04 110 16 93 Nasal Cannula 2.0 11/19/16 04:00 Nasal Cannula 2.0 11/19/16 03:45 36.9 104 18 137/64 (88) 96 Nasal Cannula 2.0 11/19/16 01:41 104 16 96 Nasal Cannula 2.0 Physical Exam: General- No acute distress Head- atraumatic Eyes- PERRL, EOMI ENT- oropharynx clear Neck- supple, trachea midline Lungs- Mild wheezing on expiration Heart- regular rhythm, tachycardia Abdomen- normal bowel sounds, soft Extremities- no calf tenderness, + 2 edema BLE Neuro- alert, oriented x 3; PERRL, EOMI; no facial palsy Skin- warm & dry Laboratory Results: Last 24 Hours Test 11/18/16 09:32 11/18/16 11:38 11/18/16 16:21 11/18/16 20:33 White Blood Count 13.75 K/uL Red Blood Count 3.24 M/uL Hemoglobin 9.9 g/dL Hematocrit 30.1 % Mean Corpuscular Volume 92.9 fL Mean Corpuscular Hemoglobin 30.6 pg Mean Corpuscular Hemoglobin Concent 32.9 g/dl RDW Standard Deviation 74.7 fL RDW Coefficient of Variation 22.4 % Platelet Count 88 K/uL Mean Platelet Volume 11.0 fL Platelet Estimate DECREASED Bedside Glucose 194 mg/dl 202 mg/dl 193 mg/dl Test 11/19/16 06:33 11/19/16 06:36 White Blood Count 16.63 K/uL Red Blood Count 3.48 M/uL Hemoglobin 10.6 g/dL Hematocrit 32.2 % Mean Corpuscular Volume 92.5 fL Mean Corpuscular Hemoglobin 30.5 pg Mean Corpuscular Hemoglobin Concent 32.9 g/dl RDW Standard Deviation 75.1 fL RDW Coefficient of Variation 22.5 % Platelet Count 92 K/uL Mean Platelet Volume 11.9 fL Platelet Estimate DECREASED Sodium Level 145 mmol/L Potassium Level 4.7 mmol/L Chloride Level 110 mmol/L Carbon Dioxide Level 26 mmol/L Anion Gap 9.0 mmol/L Blood Urea Nitrogen 49 mg/dl Creatinine 2.90 mg/dl Est Creatinine Clear Calc Drug Dose 16.1 ml/min Estimated GFR () 17.5 Estimated GFR (Non- 15.1 BUN/Creatinine Ratio 17.0 Random Glucose 191 mg/dl Calcium Level 9.3 mg/dl Bedside Glucose 183 mg/dl Assessment & Plan This is a 76 year old female with a PMH of CKD stage IV, DM2, HTN, HLD, GERD, hiatal hernia, MORRISON cirrhosis presented with a fall and found to have elevated troponin and creatinine levels Chronic Kidney Disease stage IV creatinine on admission 2.5 Creatine on 11/01/16 was 1.7 creatine today worsening to 3 yesterday, today creatine 2.9 Nephrology on board No indication for dialysis as this time Received IV lasix for volume overload Case discussed with Dr. Seo bail bonding agent that recommended to discharge on lasix 80mg BID will need follow with nephrology in 1 month Continue monitor BMP SOB /Wheezing ; possible due to vol overload cont with diuresis as per Nephrology Continue neb treatment Will give a script for a nebulizer machine on discharge will need 2 step exercise before discharge Stable Elevated Troponin Level Possible related to recent fall and elevated creatine no chest pain, no EKG changes, no significant findings on echo Stable Mechanical Fall in the setting of Orthostatic Hypotension Norvasc was discontinued Midodrine was discontinued due to elevated BP Continue PT/OT Fall precaution Waiting for placement for inpatient rehab MORRISON cirrhosis with some pleural effusion, likely hepatic hydrothorax GI was consulted no additional paracentesis needed stable Hypotension BP has been stable Midodrine was discontinue Monitor BP If BP runs low, will consider to resume the midodrine Thrombocytopenia Related to MORRISON ascites Platelet 92 No sign of bleeding Continue monitor cbc Depression/Anxiety Prozac was discontinued Continue Remeron stable Hiatal Hernia/GERD nonsurgical continue PPI degreasing wheel operator consulted Boost BID added as per degreasing wheel operator DM2 diet-controlled last Ha1c ~ 6.4% on 09/29 DVT ppx SCDs ambulation CODE STATUS FULL CODE DISPOSITION SNF declined by insurance repeat PT/OT eval ordered -pt appears to be deconditioned per OT eval on 11/16/16 : high risk for fall , no safe to return home recommend ECF social service updated Waiting for insurance approval to discharge to rehab Consultants: Nephrology Current Inpatient Medications: Current Inpatient Medications Medications (Trade) Dose Ordered Sig/Edilson Route Start Time Stop Time Status Last Admin Dose Admin Albuterol (Ventolin Hfa Inhaler) 2 puffs Q4 PRN INH 11/12/16 22:00 12/12/16 21:59 Atorvastatin Calcium (Lipitor Tab) 10 mg HS PO 11/13/16 21:00 12/13/16 20:59 11/18/16 21:16 10 MG Cholestyramine Resin (Questran Powder Light) 4 gm BID@ PO 11/12/16 22:00 12/12/16 21:59 11/18/16 10:31 4 GM Ondansetron HCl (Zofran Tab) 4 mg Q6H PRN PO 11/12/16 22:00 12/12/16 21:59 Pantoprazole Sodium (Protonix Tab) 40 mg DAILY PO 11/13/16 09:00 12/13/16 08:59 11/19/16 08:42 40 MG Buspirone HCl (Buspar Tab) 10 mg TID PO 11/13/16 09:00 12/13/16 08:59 11/19/16 08:42 10 MG Loperamide HCl (Imodium Cap) 2 mg Q12H PRN PO 11/12/16 22:00 12/12/16 21:59 11/14/16 21:05 2 MG Potassium/ Phosphorus/Sodium (Phospha 250 Neutral 155-852-130 Mg) 1 tab BID PO 11/13/16 09:00 12/13/16 08:59 11/19/16 08:43 1 TAB Mirtazapine (Remeron Tab) 15 mg HS PO 11/13/16 21:00 12/13/16 20:59 11/18/16 21:16 15 MG Enteral Nutritional Formula (Boost) 1 can BID@1000,2000 PO 11/13/16 20:00 12/13/16 19:59 11/18/16 20:00 1 CAN Albuterol Sulfate (Ventolin 0.5% 2.5MG/0.5ML Neb) 2.5 mg Q6R INH 11/16/16 15:00 12/15/16 16:59 11/19/16 07:03 2.5 MG Ipratropium [place] (Atrovent 0.02% 0.5MG/2.5ML Neb) 0.5 mg Q6R INH 11/16/16 15:00 12/16/16 14:59 11/19/16 07:03 0.5 MG Furosemide 40 mg/ Albumin Human 54 ml @ 54 mls/hr BID IV 11/17/16 11:30 11/20/16 11:29 11/18/16 21:16 54 MLS/HR Insulin Human Regular (novoLIN-R) SLIDING SCALE IF C... ACHS SC 11/17/16 16:15 12/17/16 16:14 11/19/16 08:38 1 UNITS Glucose (Glucose 40% Gel) 15-30 GRAMS 15 GRAMS... UD PRN PO 11/17/16 12:45 12/17/16 12:44 Glucose (Glucose Chew Tab) 4-8 Tablets 4 Tabl... UD PRN PO 11/17/16 12:45 12/17/16 12:44 Dextrose (Dextrose 50% 50ML Syringe) 25-50ML OF 50% DW IV FOR... UD PRN IV 11/17/16 12:45 12/17/16 12:44 Glucagon (Glucagon Inj) 1 mg UD PRN SQ 11/17/16 12:45 12/17/16 12:44 Polyethylene (Miralax Powder Packet) 17 gm DAILY PRN PO 11/17/16 12:45 12/17/16 12:44 Docusate Sodium (coLACE CAP) 100 mg BID PO 11/17/16 21:00 12/17/16 20:59 11/19/16 08:42 100 MG
[2016-11-19] MEDS: ALBUMIN 25% 50 ML with FUROSEMIDE INJ 40 MG IV SCH ×4 (09:32→20:54)
[2016-11-19] MEDS: BOOST VANILLA PO SCH ×4 (10:00→19:53)
[2016-11-19] MEDS: CHOLESTYRAMINE LIGHT 4 GM PKT PO SCH ×2 (10:52→20:51)
[2016-11-19] MEDS: ATORVASTATIN 10 MG TAB PO SCH (19:53)
[2016-11-19] MEDS: MIRTAZAPINE TAB 15 MG TAB PO SCH (19:54)
[2016-11-20] VITALS (12 sets, daily range): BP systolic 132–168; BP diastolic 62–96; PULSE 100–110; TEMP 36.9–37; O2SAT 93–99
[2016-11-20] MEDS: IPRATROPIUM BROMIDE NEB SOLN 0.02% 2.5 ML VIAL INH SCH ×6 (02:25→23:30)
[2016-11-20] MEDS: ALBUTEROL 0.5% NEB SOLN 2.5 MG/0.5 ML VIAL INH SCH ×2 (02:25→07:09)
[2016-11-20 06:45] LABS: BUN/CREATININE RATIO 18.1 (10-20); CREATININE 2.9 mg/dl (0.60-1.20); POTASSIUM 4.5 mmol/L (3.5-5.1)
--- NOTE | 2016-11-20 08:09 | Nephrology Progress Note ---
Nephrology Progress Note Date of Service: Nov 20, 2016. Subjective 76 yo female with arturo/ckd and liver disease. pt was doing well last night. however when she woke up this morning and went to bathroom, pt was having difficulty with breathing. pt breathing better now. Objective Date Time Temp Pulse Resp B/P (MAP) Pulse Ox O2 Delivery O2 Flow Rate FiO2 11/20/16 07:05 107 16 93 Nasal Cannula 2.0 11/20/16 04:45 Nasal Cannula 2.0 11/20/16 04:45 37.0 106 18 155/82 (106) 94 Nasal Cannula 2.0 11/20/16 02:26 108 16 95 Nasal Cannula 2.0 11/20/16 00:00 Nasal Cannula 2.0 11/19/16 23:25 36.7 115 22 139/67 (91) 95 Nasal Cannula 2.0 11/19/16 20:32 36.5 111 18 127/75 (92) 96 Nasal Cannula 2.0 11/19/16 20:00 Nasal Cannula 2.0 11/19/16 19:36 107 16 95 Nasal Cannula 2.0 11/19/16 16:00 Nasal Cannula 2.0 11/19/16 15:22 36.7 114 20 136/81 (99) 96 Nasal Cannula 2.0 11/19/16 14:10 102 16 96 Nasal Cannula 2.0 11/19/16 12:00 Nasal Cannula 2.0 11/19/16 11:48 36.8 112 19 145/68 (93) 96 Nasal Cannula 2.0 11/19/16 11:28 96 11/19/16 08:08 36.9 111 19 122/65 (84) 95 Nasal Cannula 2.0 Physical Exam: General-aaox3 Eyes-no scleral icterus ENT-mmm Neck-supple Lungs-+wheeze Heart-tachycardia Abdomen-bs+ s/+distention Extremities-+1 to 2 edema-pitting into her hips Neuro-nonfocal Current Inpatient Medications Medications (Trade) Dose Ordered Sig/Edilson Route Start Time Stop Time Status Last Admin Dose Admin Albuterol (Ventolin Hfa Inhaler) 2 puffs Q4 PRN INH 11/12/16 22:00 12/12/16 21:59 Atorvastatin Calcium (Lipitor Tab) 10 mg HS PO 11/13/16 21:00 12/13/16 20:59 11/19/16 19:53 10 MG Cholestyramine Resin (Questran Powder Light) 4 gm BID@10,22 PO 11/12/16 22:00 12/12/16 21:59 11/19/16 10:52 4 GM Ondansetron HCl (Zofran Tab) 4 mg Q6H PRN PO 11/12/16 22:00 12/12/16 21:59 Pantoprazole Sodium (Protonix Tab) 40 mg DAILY PO 11/13/16 09:00 12/13/16 08:59 11/19/16 08:42 40 MG Buspirone HCl (Buspar Tab) 10 mg TID PO 11/13/16 09:00 12/13/16 08:59 11/19/16 19:53 10 MG Loperamide HCl (Imodium Cap) 2 mg Q12H PRN PO 11/12/16 22:00 12/12/16 21:59 11/14/16 21:05 2 MG Potassium/ Phosphorus/Sodium (Phospha 250 Neutral 155-852-130 Mg) 1 tab BID PO 11/13/16 09:00 12/13/16 08:59 11/19/16 19:54 1 TAB Mirtazapine (Remeron Tab) 15 mg HS PO 11/13/16 21:00 12/13/16 20:59 11/19/16 19:54 15 MG Enteral Nutritional Formula (Boost) 1 can BID@1000,2000 PO 11/13/16 20:00 12/13/16 19:59 11/19/16 19:53 1 CAN Albuterol Sulfate (Ventolin 0.5% 2.5MG/0.5ML Neb) 2.5 mg Q6R INH 11/16/16 15:00 12/15/16 16:59 11/20/16 07:09 2.5 MG Ipratropium [place] (Atrovent 0.02% 0.5MG/2.5ML Neb) 0.5 mg Q6R INH 11/16/16 15:00 12/16/16 14:59 11/20/16 07:08 0.5 MG Furosemide 40 mg/ Albumin Human 54 ml @ 54 mls/hr BID IV 11/17/16 11:30 11/20/16 11:29 11/19/16 20:54 54 MLS/HR Insulin Human Regular (novoLIN-R) SLIDING SCALE IF C... ACHS SC 11/17/16 16:15 12/17/16 16:14 11/19/16 20:54 2 UNITS Glucose (Glucose 40% Gel) 15-30 GRAMS 15 GRAMS... UD PRN PO 11/17/16 12:45 12/17/16 12:44 Glucose (Glucose Chew Tab) 4-8 Tablets 4 Tabl... UD PRN PO 11/17/16 12:45 12/17/16 12:44 Dextrose (Dextrose 50% 50ML Syringe) 25-50ML OF 50% DW IV FOR... UD PRN IV 11/17/16 12:45 12/17/16 12:44 Glucagon (Glucagon Inj) 1 mg UD PRN SQ 11/17/16 12:45 12/17/16 12:44 Polyethylene (Miralax Powder Packet) 17 gm DAILY PRN PO 11/17/16 12:45 12/17/16 12:44 Docusate Sodium (coLACE CAP) 100 mg BID PO 11/17/16 21:00 12/17/16 20:59 11/19/16 19:54 100 MG Last 24 Hours Test 11/19/16 11:16 11/19/16 16:19 11/19/16 20:34 11/20/16 05:49 Bedside Glucose 183 mg/dl 233 mg/dl 194 mg/dl Sodium Level 144 mmol/L Potassium Level 4.5 mmol/L Chloride Level 109 mmol/L Carbon Dioxide Level 27 mmol/L Anion Gap 8.0 mmol/L Blood Urea Nitrogen 52 mg/dl Creatinine 2.90 mg/dl Est Creatinine Clear Calc Drug Dose 16.1 ml/min Estimated GFR () 17.5 Estimated GFR (Non- 15.1 BUN/Creatinine Ratio 18.1 Random Glucose 206 mg/dl Calcium Level 9.0 mg/dl Test 11/20/16 06:39 Bedside Glucose 188 mg/dl Assessment & Plan arturo on ckd-creatinine of 2.9 in the setting of appropriate diuresis trying to help with her edema in the legs. pt with distended abdomen, perhaps may benefit from a paracentesis to help with her breathing. continue current diuretics and edema in legs is improving.
[2016-11-20] MEDS: INSULIN HUMAN REGULAR SC SCH ×4 (08:15→21:00)
[2016-11-20] MEDS: DOCUSATE SODIUM 100 MG CAP PO SCH ×2 (08:16→20:45)
[2016-11-20] MEDS: POT PHOSPHATE MONOBASIC W/ SOD TAB PO SCH ×2 (08:16→20:45)
[2016-11-20] MEDS: BOOST VANILLA PO SCH ×6 (08:17→20:49)
[2016-11-20] MEDS: PANTOprazole SOD 40 MG TAB PO SCH (08:17)
[2016-11-20] MEDS ORDERED: LEVALBUTEROL/IPRATROPIUM NEB INH ONE (09:00)
[2016-11-20] MEDS ORDERED: LEVALBUTEROL 1.25MG/0.5ML NEB INH ONE (09:15)
[2016-11-20] MEDS ORDERED: IPRATROPIUM BROMIDE NEB SOLN 0.02% 2.5 ML VIAL INH ONE (09:15)
--- NOTE | 2016-11-20 09:24 | Progress Note ---
Medicine Progress Note Date & Time of Visit: Nov 20, 2016 at 09:17. Subjective called by DYLAN Gil as patient seemed to be coughing, wheezing after taking pills STAT neb treatment, CXR ordered on exam, patient on face mask, neb treatment in progress, tachypneic with acc muscles then noticed to be coughing up white pieces of pill states she is starting to feel better denies other symptoms Objective Last 8 Hrs Date Time Temp Pulse Resp B/P (MAP) Pulse Ox O2 Delivery O2 Flow Rate FiO2 11/20/16 07:46 36.9 110 20 132/70 (90) 95 Nasal Cannula 2.0 11/20/16 07:05 107 16 93 Nasal Cannula 2.0 11/20/16 04:45 Nasal Cannula 2.0 11/20/16 04:45 37.0 106 18 155/82 (106) 94 Nasal Cannula 2.0 11/20/16 02:26 108 16 95 Nasal Cannula 2.0 Physical Exam: General- oriented x 3, mild tachypnea and acc muscles, speaks in sentences with some effort Head- atraumatic Eyes- EOMI, anicteric ENT- oropharynx clear Neck- supple, no JVD, no adenopathy, no thyromegaly Lungs- (+) scattered rhonchi and wheezing Heart- regular rhythm; no murmur, normal rate Abdomen- normal bowel sounds, soft, nontender Extremities- trace lower leg edema, no calf tenderness Neuro- alert, oriented x 3;no gross focal deficits Skin- warm & dry Laboratory Results: Last 24 Hours Test 11/19/16 11:16 11/19/16 16:19 11/19/16 20:34 11/20/16 05:49 Bedside Glucose 183 mg/dl 233 mg/dl 194 mg/dl Sodium Level 144 mmol/L Potassium Level 4.5 mmol/L Chloride Level 109 mmol/L Carbon Dioxide Level 27 mmol/L Anion Gap 8.0 mmol/L Blood Urea Nitrogen 52 mg/dl Creatinine 2.90 mg/dl Est Creatinine Clear Calc Drug Dose 16.1 ml/min Estimated GFR () 17.5 Estimated GFR (Non- 15.1 BUN/Creatinine Ratio 18.1 Random Glucose 206 mg/dl Calcium Level 9.0 mg/dl Test 11/20/16 06:39 11/20/16 09:10 Bedside Glucose 188 mg/dl Assessment & Plan This is a 76 year old female with a PMH of CKD stage IV, DM2, HTN, HLD, GERD, hiatal hernia, MORRISON cirrhosis presented with a fall and found to have elevated troponin and creatinine levels ACUTE HYPOXIC RESPIRATORY FAILURE POSSIBLE ASPIRATION r/o Pulmonary Edema CXR nebs q4h NPO until Speech Eval Lasix BID ACUTE RENAL FAILURE ON Chronic Kidney Disease stage IV creatinine on admission 2.5 Creatine on 11/01/16 was 1.7 crea still at 2.9 Nephrology on board on Lasix 40mg IV + albumin BID MORRISON cirrhosis with some pleural effusion, likely hepatic hydrothorax -- GI reconsulted Liver US to quantify ascites may need Paracentesis Elevated Troponin Level Possible related to recent fall and elevated creatine no chest pain, no EKG changes, no significant findings on echo Mechanical Fall in the setting of Orthostatic Hypotension Norvasc was discontinued Midodrine was discontinued due to elevated BP Continue PT/OT -- accepted to SNF Hypotension BP has been stable Midodrine was discontinued Thrombocytopenia Related to MORRISON ascites Platelet 92 No sign of bleeding HIT score 2 Depression/Anxiety Prozac was discontinued Continue Remeron stable Hiatal Hernia/GERD nonsurgical continue PPI shuttle car operator consulted Boost BID added as per shuttle car operator DM2 diet-controlled last Ha1c ~ 6.4% on 09/29 DVT ppx SCDs ambulation due to low plt, no anticoagulation CODE STATUS FULL CODE DISPOSITION pending needs to be transitioned to SNF Consultants: Nephrology Consultants: Nephrology Current Inpatient Medications: Current Inpatient Medications Medications (Trade) Dose Ordered Sig/Edilson Route Start Time Stop Time Status Last Admin Dose Admin Albuterol (Ventolin Hfa Inhaler) 2 puffs Q4 PRN INH 11/12/16 22:00 12/12/16 21:59 Atorvastatin Calcium (Lipitor Tab) 10 mg HS PO 11/13/16 21:00 12/13/16 20:59 11/19/16 19:53 10 MG Cholestyramine Resin (Questran Powder Light) 4 gm BID@, PO 11/12/16 22:00 12/12/16 21:59 11/19/16 10:52 4 GM Ondansetron HCl (Zofran Tab) 4 mg Q6H PRN PO 11/12/16 22:00 12/12/16 21:59 Pantoprazole Sodium (Protonix Tab) 40 mg DAILY PO 11/13/16 09:00 12/13/16 08:59 11/20/16 08:17 40 MG Buspirone HCl (Buspar Tab) 10 mg TID PO 11/13/16 09:00 12/13/16 08:59 11/20/16 08:17 10 MG Loperamide HCl (Imodium Cap) 2 mg Q12H PRN PO 11/12/16 22:00 12/12/16 21:59 11/14/16 21:05 2 MG Potassium/ Phosphorus/Sodium (Phospha 250 Neutral 155-852-130 Mg) 1 tab BID PO 11/13/16 09:00 12/13/16 08:59 11/20/16 08:16 1 TAB Mirtazapine (Remeron Tab) 15 mg HS PO 11/13/16 21:00 12/13/16 20:59 11/19/16 19:54 15 MG Enteral Nutritional Formula (Boost) 1 can BID@1000,2000 PO 11/13/16 20:00 12/13/16 19:59 11/20/16 08:17 1 CAN Furosemide 40 mg/ Albumin Human 54 ml @ 54 mls/hr BID IV 11/17/16 11:30 11/20/16 11:29 11/19/16 20:54 54 MLS/HR Insulin Human Regular (novoLIN-R) SLIDING SCALE IF C... ACHS SC 11/17/16 16:15 12/17/16 16:14 11/20/16 08:15 1 UNITS Glucose (Glucose 40% Gel) 15-30 GRAMS 15 GRAMS... UD PRN PO 11/17/16 12:45 12/17/16 12:44 Glucose (Glucose Chew Tab) 4-8 Tablets 4 Tabl... UD PRN PO 11/17/16 12:45 12/17/16 12:44 Dextrose (Dextrose 50% 50ML Syringe) 25-50ML OF 50% DW IV FOR... UD PRN IV 11/17/16 12:45 12/17/16 12:44 Glucagon (Glucagon Inj) 1 mg UD PRN SQ 11/17/16 12:45 12/17/16 12:44 Polyethylene (Miralax Powder Packet) 17 gm DAILY PRN PO 11/17/16 12:45 12/17/16 12:44 Docusate Sodium (coLACE CAP) 100 mg BID PO 11/17/16 21:00 12/17/16 20:59 11/20/16 08:16 100 MG Ipratropium [place] (Atrovent 0.02% 0.5MG/2.5ML Neb) 0.5 mg NOW ONCE INH 11/20/16 09:15 11/20/16 09:16 Levalbuterol (Xopenex 1.25MG/ 0.5ML Neb) 1.25 mg NOW ONCE INH 11/20/16 09:15 11/20/16 09:16 Miscellaneous (Xopenex/ Atrovent Neb) 1 ea Q4H INH 11/20/16 12:00 12/20/16 11:59 UNV
--- NOTE | 2016-11-20 09:31 | DIAGNOSTIC IMAGING REPORT ---
CHEST ONE VIEW PORTABLE CLINICAL HISTORY: Respiratory difficulty COMPARISON STUDY: 11/12/2016 FINDINGS: There is a hiatal hernia present. There is a suspected subpulmonic right pleural effusion with associated right basilar airspace opacities. There are new airspace opacities present within the periphery of the left midlung zone. Slightly prominent markings are also present within the left superhilar region. There is a probable small left pleural effusion.[ IMPRESSION: 1. Bilateral pleural effusions 2. Right basilar airspace opacities, atelectatic versus infectious/inflammatory 3. Interval development of left midlung zone peripheral airspace opacities, likely infectious/inflammatory 4. Radiographic follow-up is recommended Electronically signed by: Shayan Bhatt M.D. 11/20/2016 9:30 AM Dictated Date/Time: 11/20/2016 9:28 AM
[2016-11-20] MEDS: ALBUMIN 25% 50 ML with FUROSEMIDE INJ 40 MG IV SCH ×2 (09:34)
[2016-11-20] MEDS: CHOLESTYRAMINE LIGHT 4 GM PKT PO SCH ×2 (09:35→21:11)
[2016-11-20 09:43] LABS: ARTERIAL BLOOD GAS BASE EXCESS -1.1 mEq/L (-9-1.8); ARTERIAL BLOOD GAS HCO3 23 mmol/L (19-24); ARTERIAL BLOOD GAS PO2 112 mm/Hg (80-95); ARTERIAL BLOOD GAS pH 7.42 (7.35-7.45)
[2016-11-20 09:44] LABS: ALLEN TEST POS (POS); O2 ADMINISTRATION 15 LITER
--- NOTE | 2016-11-20 09:49 | Progress Note ---
Progress Note Date of Service Nov 20, 2016. (Gabriela Pandya ., JACQUELINE) Progress Note GI asked to re-evaluate prior to d/c for paracentesis. Pt aspirated overnight and discharge will be postponed. Will get ABD US for ascites and recommend paracentesis depending on results. Pt tells me she feels distended and would like to get done before she leaves. Dr. Brower at bedside No acute distress. Heart RRR. Lungs with scattered rhonci and coarse breath sounds. ABD + BS, distended. ABD US Therapeutic paracentesis (Gabriela Pandya ., JACQUELINE)
--- NOTE | 2016-11-20 10:50 | DIAGNOSTIC IMAGING REPORT ---
ASCITES-ABDOMEN LIMITED ULTRASOUND CLINICAL HISTORY: quantify ascites COMPARISON STUDY: Abdominal ultrasound 11/12/2016. FINDINGS: Small volume ascites seen throughout the abdomen. This is similar to the prior study. IMPRESSION: No change in the small amount of ascites. Electronically signed by: Jarrett Quiroz M.D. 11/20/2016 10:48 AM Dictated Date/Time: 11/20/2016 10:46 AM
[2016-11-20] MEDS: LEVALBUTEROL 1.25MG/0.5ML NEB INH SCH ×4 (12:00→23:30)
[2016-11-20] MEDS ORDERED: LEVALBUTEROL/IPRATROPIUM NEB INH SCH (12:00)
[2016-11-20] MEDS ORDERED: PIPERACILL/TAZOBAC CONSULT ACTIVE PRN (19:45)
[2016-11-20] MEDS ORDERED: PIPERACILL/TAZOBAC IV 3.375 GM in DEXTROSE 5% 100ML IV SCH (20:00)
[2016-11-20] MEDS: ATORVASTATIN 10 MG TAB PO SCH (20:45)
[2016-11-20] MEDS: MIRTAZAPINE TAB 15 MG TAB PO SCH (20:46)
[2016-11-20] MEDS: INSULIN GLARGINE SOLOSTAR 100 UNITS/ML 3 ML PEN SC SCH (20:53)
[2016-11-21] VITALS (11 sets, daily range): BP systolic 111–148; BP diastolic 61–82; PULSE 81–114; TEMP 36.8–37.3; O2SAT 90–97
[2016-11-21] MEDS: LEVALBUTEROL 1.25MG/0.5ML NEB INH SCH ×5 (04:40→19:19)
[2016-11-21] MEDS: IPRATROPIUM BROMIDE NEB SOLN 0.02% 2.5 ML VIAL INH SCH ×5 (04:40→19:19)
[2016-11-21] MEDS: PIPERACILL/TAZOBAC IV 3.375 GM in DEXTROSE 5% 100ML IV SCH ×2 (06:17→17:29)
[2016-11-21 06:35] LABS: CREATININE 2.9 mg/dl (0.60-1.20)
[2016-11-21] MEDS: INSULIN HUMAN REGULAR SC SCH ×4 (07:00→21:58)
[2016-11-21] MEDS: PANTOprazole SOD 40 MG TAB PO SCH (08:02)
[2016-11-21] MEDS: POT PHOSPHATE MONOBASIC W/ SOD TAB PO SCH ×2 (08:02→20:29)
[2016-11-21] MEDS: DOCUSATE SODIUM 100 MG CAP PO SCH ×2 (08:03→20:29)
[2016-11-21] MEDS: BOOST VANILLA PO SCH ×10 (08:03→20:39)
--- NOTE | 2016-11-21 08:20 | Progress Note ---
Progress Note Date of Service Nov 21, 2016. Progress Note Pt was seen and evaluated this AM. No acute events over night. Denies fever, chills, CP, SOB or abdominal pain. RUQ US with small amount of ascites - pt is not in any abdominal discomfort this AM RUQ US 11/20/16: Small volume ascites seen throughout the abdomen. This is similar to the prior study. No acute distress. Heart RRR. Lungs diminished bilaterally. Abd normal BS, mild distention, soft. Unable to complete therapeutic paracentesis as there is only a small amount of fluid seen on US. GI to sign off. Please call with any questions or concerns.
--- NOTE | 2016-11-21 08:20 | DIAGNOSTIC IMAGING REPORT ---
CHEST ONE VIEW PORTABLE HISTORY: Pleural effusions. Follow-up. COMPARISON: Chest 11/20/2016. FINDINGS: There are low lung findings. Cholecystectomy. Minimal thorax. Perihilar interstitial and vascular thickening is again noted. Left suprahilar density has improved. Left peripheral mid to lower lung zone hazy opacity is again noted. The small bilateral pleural effusions and bibasilar densities persist. Hiatal hernia, unchanged. IMPRESSION: 1. Slight progression of the perihilar interstitial and vascular thickening suggestive of mild pulmonary edema. 2. Cardiomegaly, small bilateral pleural effusions, and bibasilar densities are not significantly changed. Electronically signed by: Jarrett Quiroz M.D. 11/21/2016 8:18 AM Dictated Date/Time: 11/21/2016 8:16 AM
--- NOTE | 2016-11-21 08:45 | Progress Note ---
Medicine Progress Note Date & Time of Visit: Nov 21, 2016 at 08:39. Subjective patient seen resting in bed, comfortable states her breathing is better than yesterday has a dry cough denies chest pain, dyspnea, palpitations, dizziness no other symptoms Objective Last 8 Hrs Date Time Temp Pulse Resp B/P (MAP) Pulse Ox O2 Delivery O2 Flow Rate FiO2 11/21/16 07:33 36.9 101 20 141/63 (89) 94 Nasal Cannula 2.0 11/21/16 07:28 81 12 94 Nasal Cannula 2.0 11/21/16 04:40 101 16 94 Nasal Cannula 2.0 11/21/16 04:30 37.0 105 18 137/68 (91) 94 Nasal Cannula 2.0 11/21/16 04:00 Nasal Cannula 2.0 Physical Exam: General- oriented x 3, not in distress, speaks in sentences with no effort Eyes- anicteric Neck- no JVD Lungs- mild rales bilateral bases Heart- regular rhythm; no murmur Abdomen- normal bowel sounds, soft, nontender Extremities- trace lower leg edema, no calf tenderness Neuro- alert, oriented x 3;no gross focal deficits Skin- warm & dry Laboratory Results: Last 24 Hours Test 11/20/16 09:30 11/20/16 12:32 11/20/16 16:40 11/20/16 20:47 Arterial Blood pH 7.42 Arterial Blood Partial Pressure CO2 36 mmHg Arterial Blood Partial Pressure O2 112 mm/Hg Arterial Blood HCO3 23 mmol/L Arterial Blood Oxygen Saturation 98.0 % Arterial Blood Base Excess -1.1 mEq/L Arterial Blood Gas Delivery 15 LITER Emanuel Test POS Bedside Glucose 187 mg/dl 201 mg/dl 194 mg/dl Test 11/21/16 05:35 Creatinine 2.90 mg/dl Est Creatinine Clear Calc Drug Dose 16.1 ml/min Estimated GFR () 17.5 Estimated GFR (Non- 15.1 Assessment & Plan This is a 76 year old female with a PMH of CKD stage IV, DM2, HTN, HLD, GERD, hiatal hernia, MORRISON cirrhosis presented with a fall and found to have elevated troponin and creatinine levels ACUTE HYPOXIC RESPIRATORY FAILURE SECONDARY TO POSSIBLE ASPIRATION PULMONARY EDEMA -- on Zosyn IV Day 2 Speech Therapy Eval: Dental soft, slippery diet -- on Lasix -- off oxygen mask, wean off nasal cannula ACUTE RENAL FAILURE ON Chronic Kidney Disease stage IV creatinine on admission 2.5 Creatine on 11/01/16 was 1.7 crea still at 2.9 Nephrology on board given Lasix 40mg IV + albumin BID -- changed to Lasix only monitor crea and diuresis MORRISON cirrhosis with some pleural effusion, likely hepatic hydrothorax -- GI reconsulted Liver US to quantify ascites: minimal -- no plans for paracentesis Elevated Troponin Level Possible related to recent fall and elevated creatine no chest pain, no EKG changes, no significant findings on echo Mechanical Fall in the setting of Orthostatic Hypotension Norvasc was discontinued Midodrine was discontinued due to elevated BP Continue PT/OT -- accepted to SNF Hypotension BP has been stable Midodrine was discontinued Thrombocytopenia Related to MORRISON ascites Platelet 92 No sign of bleeding HIT score 2 Depression/Anxiety Prozac was discontinued Continue Remeron stable Hiatal Hernia/GERD nonsurgical continue PPI it security project manager consulted Boost BID added as per it security project manager DM2 diet-controlled last Ha1c ~ 6.4% on 09/29 DVT ppx SCDs ambulation due to low plt, no anticoagulation CODE STATUS FULL CODE DISPOSITION pending needs to be transitioned to SNF Consultants: Nephrology Consultants: Nephrology Current Inpatient Medications: Current Inpatient Medications Medications (Trade) Dose Ordered Sig/Edilson Route Start Time Stop Time Status Last Admin Dose Admin Albuterol (Ventolin Hfa Inhaler) 2 puffs Q4 PRN INH 11/12/16 22:00 12/12/16 21:59 Atorvastatin Calcium (Lipitor Tab) 10 mg HS PO 11/13/16 21:00 12/13/16 20:59 11/20/16 20:45 10 MG Cholestyramine Resin (Questran Powder Light) 4 gm BID@, PO 11/12/16 22:00 12/12/16 21:59 11/19/16 10:52 4 GM Ondansetron HCl (Zofran Tab) 4 mg Q6H PRN PO 11/12/16 22:00 12/12/16 21:59 Pantoprazole Sodium (Protonix Tab) 40 mg DAILY PO 11/13/16 09:00 12/13/16 08:59 11/21/16 08:02 40 MG Buspirone HCl (Buspar Tab) 10 mg TID PO 11/13/16 09:00 12/13/16 08:59 11/21/16 08:02 10 MG Loperamide HCl (Imodium Cap) 2 mg Q12H PRN PO 11/12/16 22:00 12/12/16 21:59 11/14/16 21:05 2 MG Potassium/ Phosphorus/Sodium (Phospha 250 Neutral 155-852-130 Mg) 1 tab BID PO 11/13/16 09:00 12/13/16 08:59 11/21/16 08:02 1 TAB Mirtazapine (Remeron Tab) 15 mg HS PO 11/13/16 21:00 12/13/16 20:59 11/20/16 20:46 15 MG Enteral Nutritional Formula (Boost) 1 can BID@1000,2000 PO 11/13/16 20:00 12/13/16 19:59 11/20/16 08:17 1 CAN Insulin Human Regular (novoLIN-R) SLIDING SCALE IF C... ACHS SC 11/17/16 16:15 12/17/16 16:14 11/20/16 21:00 2 UNITS Glucose (Glucose 40% Gel) 15-30 GRAMS 15 GRAMS... UD PRN PO 11/17/16 12:45 12/17/16 12:44 Glucose (Glucose Chew Tab) 4-8 Tablets 4 Tabl... UD PRN PO 11/17/16 12:45 12/17/16 12:44 Dextrose (Dextrose 50% 50ML Syringe) 25-50ML OF 50% DW IV FOR... UD PRN IV 11/17/16 12:45 12/17/16 12:44 Glucagon (Glucagon Inj) 1 mg UD PRN SQ 11/17/16 12:45 12/17/16 12:44 Polyethylene (Miralax Powder Packet) 17 gm DAILY PRN PO 11/17/16 12:45 12/17/16 12:44 Docusate Sodium (coLACE CAP) 100 mg BID PO 11/17/16 21:00 12/17/16 20:59 11/21/16 08:03 100 MG Ipratropium [place] (Atrovent 0.02% 0.5MG/2.5ML Neb) 0.5 mg Q4R INH 11/20/16 12:00 12/20/16 11:59 11/21/16 07:08 0.5 MG Levalbuterol (Xopenex 1.25MG/ 0.5ML Neb) 1.25 mg Q4R INH 11/20/16 12:00 12/20/16 11:59 11/21/16 07:08 1.25 MG Insulin Glargine (Lantus Solostar Pen) 5 units HS SC 11/20/16 21:00 12/20/16 20:59 11/20/16 20:53 5 UNITS Enteral Nutritional Formula (Boost) 0.5 can QID@0730,1000,1400,1900 PO 11/20/16 19:00 12/20/16 18:59 11/21/16 08:03 0.5 CAN Piperacillin Sod/ Tazobactam Sod (Consult) 1 ea UD PRN N/A 11/20/16 19:45 12/20/16 19:44 Piperacillin Sod/ Tazobactam Sod 3.375 gm/Dextrose 115 ml @ 28.75 mls/ hr Q12H IV 11/21/16 06:00 11/28/16 05:59 11/21/16 06:17 28.75 MLS/HR
--- NOTE | 2016-11-21 08:57 | Nephrology Progress Note ---
Nephrology Progress Note Date of Service: Nov 21, 2016. Subjective 76 yo female with arturo/ckd and liver disease. pt unfortunately aspirated on a phosphate binder. pt with wheezing and cough. pt also with fatigue. pt evaluated for a paracentesis and there was not enough fluid there for a tap. Objective Date Time Temp Pulse Resp B/P (MAP) Pulse Ox O2 Delivery O2 Flow Rate FiO2 11/21/16 07:33 36.9 101 20 141/63 (89) 94 Nasal Cannula 2.0 11/21/16 07:28 81 12 94 Nasal Cannula 2.0 11/21/16 04:40 101 16 94 Nasal Cannula 2.0 11/21/16 04:30 37.0 105 18 137/68 (91) 94 Nasal Cannula 2.0 11/21/16 04:00 Nasal Cannula 2.0 11/21/16 00:09 37.3 114 22 111/61 (78) 95 Nasal Cannula 2.0 11/21/16 00:00 Nasal Cannula 2.0 11/20/16 23:30 109 18 96 Nasal Cannula 2.0 11/20/16 20:00 Nasal Cannula 2.0 11/20/16 19:25 100 16 95 Nasal Cannula 4.0 11/20/16 18:42 36.9 108 20 148/68 (94) 98 Nasal Cannula 3.0 11/20/16 16:00 Nasal Cannula 3.0 11/20/16 15:29 37.0 106 16 134/96 (109) 96 Nasal Cannula 4.0 11/20/16 15:05 104 16 97 Nasal Cannula 4.0 11/20/16 12:00 Nasal Cannula 2.0 11/20/16 10:46 36.9 106 20 134/62 (86) 99 11/20/16 09:15 110 16 93 Mask 15.0 Physical Exam: General-aaox3 Eyes-no scleral icterus ENT-mmm Neck-supple Lungs-+wheeze Heart-tachycardia Abdomen-bs+ s/+distention Extremities-+1 edema-pitting into her hips Neuro-nonfocal Current Inpatient Medications Medications (Trade) Dose Ordered Sig/Edilson Route Start Time Stop Time Status Last Admin Dose Admin Albuterol (Ventolin Hfa Inhaler) 2 puffs Q4 PRN INH 11/12/16 22:00 12/12/16 21:59 Atorvastatin Calcium (Lipitor Tab) 10 mg HS PO 8/1/17 21:00 12/13/16 20:59 11/20/16 20:45 10 MG Cholestyramine Resin (Questran Powder Light) 4 gm BID@10,22 PO 11/12/16 22:00 12/12/16 21:59 11/19/16 10:52 4 GM Ondansetron HCl (Zofran Tab) 4 mg Q6H PRN PO 11/12/16 22:00 12/12/16 21:59 Pantoprazole Sodium (Protonix Tab) 40 mg DAILY PO 11/13/16 09:00 12/13/16 08:59 11/21/16 08:02 40 MG Buspirone HCl (Buspar Tab) 10 mg TID PO 11/13/16 09:00 12/13/16 08:59 11/21/16 08:02 10 MG Loperamide HCl (Imodium Cap) 2 mg Q12H PRN PO 11/12/16 22:00 12/12/16 21:59 11/14/16 21:05 2 MG Potassium/ Phosphorus/Sodium (Phospha 250 Neutral 155-852-130 Mg) 1 tab BID PO 11/13/16 09:00 12/13/16 08:59 11/21/16 08:02 1 TAB Mirtazapine (Remeron Tab) 15 mg HS PO 11/13/16 21:00 12/13/16 20:59 11/20/16 20:46 15 MG Enteral Nutritional Formula (Boost) 1 can BID@1000,2000 PO 11/13/16 20:00 12/13/16 19:59 11/20/16 08:17 1 CAN Insulin Human Regular (novoLIN-R) SLIDING SCALE IF C... ACHS SC 11/17/16 16:15 12/17/16 16:14 11/20/16 21:00 2 UNITS Glucose (Glucose 40% Gel) 15-30 GRAMS 15 GRAMS... UD PRN PO 11/17/16 12:45 12/17/16 12:44 Glucose (Glucose Chew Tab) 4-8 Tablets 4 Tabl... UD PRN PO 11/17/16 12:45 12/17/16 12:44 Dextrose (Dextrose 50% 50ML Syringe) 25-50ML OF 50% DW IV FOR... UD PRN IV 11/17/16 12:45 12/17/16 12:44 Glucagon (Glucagon Inj) 1 mg UD PRN SQ 11/17/16 12:45 12/17/16 12:44 Polyethylene (Miralax Powder Packet) 17 gm DAILY PRN PO 11/17/16 12:45 12/17/16 12:44 Docusate Sodium (coLACE CAP) 100 mg BID PO 11/17/16 21:00 12/17/16 20:59 11/21/16 08:03 100 MG Insulin Glargine (Lantus Solostar Pen) 5 units HS SC 11/20/16 21:00 12/20/16 20:59 11/20/16 20:53 5 UNITS Enteral Nutritional Formula (Boost) 0.5 can QID@0730,1000,1400,1900 PO 11/20/16 19:00 12/20/16 18:59 11/21/16 08:03 0.5 CAN Piperacillin Sod/ Tazobactam Sod (Consult) 1 ea UD PRN N/A 11/20/16 19:45 12/20/16 19:44 Piperacillin Sod/ Tazobactam Sod 3.375 gm/Dextrose 115 ml @ 28.75 mls/ hr Q12H IV 11/21/16 06:00 11/28/16 05:59 11/21/16 06:17 28.75 MLS/HR Ipratropium [place] (Atrovent 0.02% 0.5MG/2.5ML Neb) 0.5 mg Q6R INH 11/21/16 09:00 12/21/16 08:59 Levalbuterol (Xopenex 1.25MG/ 0.5ML Neb) 1.25 mg Q6R INH 11/21/16 09:00 12/21/16 08:59 Last 24 Hours Test 11/20/16 09:30 11/20/16 12:32 11/20/16 16:40 11/20/16 20:47 Arterial Blood pH 7.42 Arterial Blood Partial Pressure CO2 36 mmHg Arterial Blood Partial Pressure O2 112 mm/Hg Arterial Blood HCO3 23 mmol/L Arterial Blood Oxygen Saturation 98.0 % Arterial Blood Base Excess -1.1 mEq/L Arterial Blood Gas Delivery 15 LITER Emanuel Test POS Bedside Glucose 187 mg/dl 201 mg/dl 194 mg/dl Test 11/21/16 05:35 11/21/16 08:38 Creatinine 2.90 mg/dl Est Creatinine Clear Calc Drug Dose 16.1 ml/min Estimated GFR () 17.5 Estimated GFR (Non- 15.1 Assessment & Plan arturo on ckd-creatinine of 2.9 in the setting of appropriate diuresis trying to help with her edema in the legs. pt finished albumin with lasix 40 iv bid and to continue solely lasix 40 iv bid continuing to help improve volume status in her legs. no significant amount of ascites. has wheezing which is a combination of aspiration and fluid. continue appropriate diuresis. case discussed with Dr. Cedeno who is in agreement.
[2016-11-21 09:47] LABS: MEAN CELL VOLUME 93.4 fL (80-100); MEAN CORPUSCULAR HEMOGLOBIN 31.1 pg (25-34); MEAN CORPUSCULAR HGB CONC 33.3 g/dl (32-36); MEAN PLATELET VOLUME 13.3 fL (7.4-10.4); PLATELET COUNT 85 K/uL (130-400); RED BLOOD COUNT 2.89 M/uL (4.2-5.4); WHITE BLOOD COUNT 15.81 K/uL (4.8-10.8)
[2016-11-21 09:52] LABS: ANISOCYTOSIS PRESENT; BASO % 0.2 %; BASO ABS # 0.03 K/uL (0-0.2); COMPLETE YES; EOS % 0.4 %; IG% 0.4 %; LYMPH % 10.2 %; LYMPH ABS # 1.61 K/uL (1.2-3.4); NEUT % 80.8 %; PLT ESTIMATE DECREASED; VACUOLIZATION 2+
[2016-11-21] MEDS: FUROSEMIDE INJ 40 MG in SYRINGE 0 ML IV SCH ×2 (10:10→17:29)
[2016-11-21] MEDS: CHOLESTYRAMINE LIGHT 4 GM PKT PO SCH ×2 (12:57→21:58)
[2016-11-21] MEDS: ATORVASTATIN 10 MG TAB PO SCH (20:28)
[2016-11-21] MEDS: INSULIN GLARGINE SOLOSTAR 100 UNITS/ML 3 ML PEN SC SCH (20:35)
[2016-11-21] MEDS: MIRTAZAPINE TAB 15 MG TAB PO SCH (20:36)
[2016-11-21] MEDS ORDERED: NURSING VERBAL MED ORDER ONE (21:45)
[2016-11-21] MEDS: ALUMINUM/MAGNESIUM SUSP 30 ML UDC PO PRN (21:56)
[2016-11-22] VITALS (14 sets, daily range): BP systolic 120–145; BP diastolic 61–69; PULSE 100–114; TEMP 36.6–37; O2SAT 93–97
[2016-11-22] MEDS: IPRATROPIUM BROMIDE NEB SOLN 0.02% 2.5 ML VIAL INH SCH ×6 (01:45→23:09)
[2016-11-22] MEDS: LEVALBUTEROL 1.25MG/0.5ML NEB INH SCH ×6 (01:45→23:09)
[2016-11-22] MEDS: PIPERACILL/TAZOBAC IV 3.375 GM in DEXTROSE 5% 100ML IV SCH ×2 (05:52→18:05)
[2016-11-22 06:05] LABS: HEMATOCRIT 27.7 % (37-47); MEAN CELL VOLUME 92.3 fL (80-100); MEAN CORPUSCULAR HEMOGLOBIN 29.7 pg (25-34); MEAN CORPUSCULAR HGB CONC 32.1 g/dl (32-36); WHITE BLOOD COUNT 13.94 K/uL (4.8-10.8)
[2016-11-22 06:11] LABS: MEAN PLATELET VOLUME 11.1 fL (7.4-10.4); PLATELET COUNT 94 K/uL (130-400)
[2016-11-22 06:44] LABS: BUN/CREATININE RATIO 18.3 (10-20); CALCIUM 8.4 mg/dl (8.5-10.1); CREATININE 3.3 mg/dl (0.60-1.20); POTASSIUM 4.5 mmol/L (3.5-5.1)
[2016-11-22 06:56] LABS: ANISOCYTOSIS PRESENT; BASO % 0.1 %; BASO ABS # 0.01 K/uL (0-0.2); COMPLETE YES; ECHINOCYTES 1+; EOS % 0.5 %; GIANT PLATELETS 1+; IG% 0.2 %; LYMPH ABS # 1.54 K/uL (1.2-3.4); MONO % 8.5 %; NEUT % 79.7 %
[2016-11-22] MEDS: BOOST VANILLA PO SCH ×8 (07:30→18:08)
[2016-11-22] MEDS ORDERED: LEVALBUTEROL/IPRATROPIUM NEB INH ONE (08:15)
[2016-11-22] MEDS ORDERED: LEVALBUTEROL 1.25MG/0.5ML NEB INH STA (08:19)
[2016-11-22] MEDS ORDERED: IPRATROPIUM BROMIDE NEB SOLN 0.02% 2.5 ML VIAL INH STA (08:19)
--- NOTE | 2016-11-22 08:22 | Progress Note ---
Medicine Progress Note Date & Time of Visit: Nov 22, 2016 at 08:19. Subjective patient seen resting in bed states she does not feel too good today has dyspnea, still has dry cough denies chest pain, palpitations, dizziness no other symptoms Objective Last 8 Hrs Date Time Temp Pulse Resp B/P (MAP) Pulse Ox O2 Delivery O2 Flow Rate FiO2 11/22/16 07:14 102 16 94 Nasal Cannula 2.0 11/22/16 03:55 36.8 104 18 131/68 (89) 93 Nasal Cannula 2.0 11/22/16 01:45 101 16 95 Nasal Cannula 2.0 Physical Exam: General- oriented x 3, not in distress, mild tachypnea, speaks in sentences with no effort Neck- no JVD Lungs- scattered wheeze bilaterally Heart- regular rhythm; no murmur Abdomen- normal bowel sounds, soft, nontender Extremities- trace lower leg edema, no calf tenderness Neuro- alert, oriented x 3;no gross focal deficits Skin- warm & dry Laboratory Results: Last 24 Hours Test 11/21/16 11:33 11/21/16 16:30 11/21/16 20:21 11/22/16 05:36 Bedside Glucose 189 mg/dl 159 mg/dl 198 mg/dl White Blood Count 13.94 K/uL Red Blood Count 3.00 M/uL Hemoglobin 8.9 g/dL Hematocrit 27.7 % Mean Corpuscular Volume 92.3 fL Mean Corpuscular Hemoglobin 29.7 pg Mean Corpuscular Hemoglobin Concent 32.1 g/dl Platelet Count 94 K/uL Mean Platelet Volume 11.1 fL Neutrophils (%) (Auto) 79.7 % Lymphocytes (%) (Auto) 11.0 % Monocytes (%) (Auto) 8.5 % Eosinophils (%) (Auto) 0.5 % Basophils (%) (Auto) 0.1 % Neutrophils # (Auto) 11.11 K/uL Lymphocytes # (Auto) 1.54 K/uL Monocytes # (Auto) 1.18 K/uL Eosinophils # (Auto) 0.07 K/uL Basophils # (Auto) 0.01 K/uL RDW Standard Deviation 72.7 fL RDW Coefficient of Variation 22.4 % Immature Granulocyte % (Auto) 0.2 % Immature Granulocyte # (Auto) 0.03 K/uL Giant Platelets 1+ Anisocytosis PRESENT Echinocytes 1+ Sodium Level 144 mmol/L Potassium Level 4.5 mmol/L Chloride Level 107 mmol/L Carbon Dioxide Level 27 mmol/L Anion Gap 10.0 mmol/L Blood Urea Nitrogen 61 mg/dl Creatinine 3.30 mg/dl Est Creatinine Clear Calc Drug Dose 14.2 ml/min Estimated GFR () 15.0 Estimated GFR (Non- 12.9 BUN/Creatinine Ratio 18.3 Random Glucose 180 mg/dl Calcium Level 8.4 mg/dl Test 11/22/16 06:49 Bedside Glucose 166 mg/dl Assessment & Plan This is a 76 year old female with a PMH of CKD stage IV, DM2, HTN, HLD, GERD, hiatal hernia, MORRISON cirrhosis presented with a fall and found to have elevated troponin and creatinine levels ACUTE HYPOXIC RESPIRATORY FAILURE SECONDARY TO POSSIBLE ASPIRATION PULMONARY EDEMA -- on Zosyn IV Day 06/15 Speech Therapy Eval: Dental soft, slippery diet -- on Lasix BID -- (+) wheezing again today repeat CXR increase nebs again to q4h will discuss Lasix with Nephro on Zoysn IV day 06/15 ACUTE RENAL FAILURE ON Chronic Kidney Disease stage IV creatinine on admission 2.5 Creatine on 11/01/16 was 1.7 Nephrology on board given Lasix 40mg IV + albumin BID -- crea 3.3 will discuss with Nephro re: Lasix MORRISON cirrhosis with some pleural effusion, likely hepatic hydrothorax -- GI reconsulted Liver US to quantify ascites: minimal -- no plans for paracentesis Elevated Troponin Level Possible related to recent fall and elevated creatine no chest pain, no EKG changes, no significant findings on echo Mechanical Fall in the setting of Orthostatic Hypotension Norvasc was discontinued Midodrine was discontinued due to elevated BP Continue PT/OT -- accepted to SNF Hypotension BP has been stable Midodrine was discontinued Thrombocytopenia Related to MORRISON ascites Platelet 92 No sign of bleeding HIT score 2 Depression/Anxiety Prozac was discontinued Continue Remeron stable Hiatal Hernia/GERD nonsurgical continue PPI jig and fixture maker consulted Boost BID added as per jig and fixture maker DM2 diet-controlled last Ha1c ~ 6.4% on 09/29 DVT ppx SCDs ambulation due to low plt, no anticoagulation CODE STATUS FULL CODE DISPOSITION pending needs to be transitioned to SNF Consultants: Nephrology Consultants: Nephrology Current Inpatient Medications: Current Inpatient Medications Medications (Trade) Dose Ordered Sig/Edilson Route Start Time Stop Time Status Last Admin Dose Admin Albuterol (Ventolin Hfa Inhaler) 2 puffs Q4 PRN INH 11/12/16 22:00 12/12/16 21:59 Atorvastatin Calcium (Lipitor Tab) 10 mg HS PO 11/13/16 21:00 12/13/16 20:59 11/21/16 20:28 10 MG Cholestyramine Resin (Questran Powder Light) 4 gm BID@ PO 11/12/16 22:00 12/12/16 21:59 11/21/16 12:57 4 GM Ondansetron HCl (Zofran Tab) 4 mg Q6H PRN PO 11/12/16 22:00 12/12/16 21:59 Pantoprazole Sodium (Protonix Tab) 40 mg DAILY PO 11/13/16 09:00 12/13/16 08:59 11/21/16 08:02 40 MG Buspirone HCl (Buspar Tab) 10 mg TID PO 11/13/16 09:00 12/13/16 08:59 11/21/16 20:28 10 MG Loperamide HCl (Imodium Cap) 2 mg Q12H PRN PO 11/12/16 22:00 12/12/16 21:59 11/14/16 21:05 2 MG Potassium/ Phosphorus/Sodium (Phospha 250 Neutral 155-852-130 Mg) 1 tab BID PO 11/13/16 09:00 12/13/16 08:59 11/21/16 20:29 1 TAB Mirtazapine (Remeron Tab) 15 mg HS PO 11/13/16 21:00 12/13/16 20:59 11/21/16 20:36 15 MG Insulin Human Regular (novoLIN-R) SLIDING SCALE IF C... ACHS SC 11/17/16 16:15 12/17/16 16:14 11/21/16 21:58 3 UNITS Glucose (Glucose 40% Gel) 15-30 GRAMS 15 GRAMS... UD PRN PO 11/17/16 12:45 12/17/16 12:44 Glucose (Glucose Chew Tab) 4-8 Tablets 4 Tabl... UD PRN PO 11/17/16 12:45 12/17/16 12:44 Dextrose (Dextrose 50% 50ML Syringe) 25-50ML OF 50% DW IV FOR... UD PRN IV 11/17/16 12:45 12/17/16 12:44 Glucagon (Glucagon Inj) 1 mg UD PRN SQ 11/17/16 12:45 12/17/16 12:44 Polyethylene (Miralax Powder Packet) 17 gm DAILY PRN PO 11/17/16 12:45 12/17/16 12:44 Docusate Sodium (coLACE CAP) 100 mg BID PO 11/17/16 21:00 12/17/16 20:59 11/21/16 20:29 100 MG Insulin Glargine (Lantus Solostar Pen) 5 units HS SC 11/20/16 21:00 12/20/16 20:59 11/21/16 20:35 5 UNITS Enteral Nutritional Formula (Boost) 0.5 can QID@0730,1000,1400,1900 PO 11/20/16 19:00 12/20/16 18:59 11/21/16 20:39 0.5 CAN Piperacillin Sod/ Tazobactam Sod (Consult) 1 ea UD PRN N/A 11/20/16 19:45 12/20/16 19:44 Piperacillin Sod/ Tazobactam Sod 3.375 gm/Dextrose 115 ml @ 28.75 mls/ hr Q12H IV 11/21/16 06:00 11/28/16 05:59 11/22/16 05:52 28.75 MLS/HR Ipratropium [place] (Atrovent 0.02% 0.5MG/2.5ML Neb) 0.5 mg Q6R INH 11/21/16 09:00 12/21/16 08:59 11/22/16 07:14 0.5 MG Levalbuterol (Xopenex 1.25MG/ 0.5ML Neb) 1.25 mg Q6R INH 11/21/16 09:00 12/21/16 08:59 11/22/16 07:14 1.25 MG Furosemide 40 mg/ Syringe 4 ml @ 4 mls/min BID17 IV 11/21/16 09:00 12/21/16 08:59 11/21/16 17:29 4 MLS/MIN Al Hydroxide/Mg Hydroxide (Maalox Susp) 15 ml Q4H PRN PO 11/21/16 21:45 12/21/16 21:44 11/21/16 21:56 15 ML Miscellaneous (Xopenex/ Atrovent Neb) 1 ea NOW ONCE INH 11/22/16 08:15 11/22/16 08:16 UNV
--- NOTE | 2016-11-22 08:29 | DIAGNOSTIC IMAGING REPORT ---
CHEST ONE VIEW PORTABLE HISTORY: Pleural effusions. Follow-up. COMPARISON: Chest 11/21/2016. FINDINGS: No pneumothorax. Chronic elevation the left hemidiaphragm. The heart is stable in size. Interstitial thickening and the hazy right perihilar airspace opacities have slightly progressed. Slight progression of the left suprahilar density. Suspect small bilateral pleural effusions, unchanged. Left midlung zone peripheral airspace opacity, unchanged. IMPRESSION: Slight progression of the bilateral airspace opacities which may represent pulmonary edema or pneumonia. Small bilateral pleural effusions persist. Electronically signed by: Jarrett Quiroz M.D. 11/22/2016 8:28 AM Dictated Date/Time: 11/22/2016 8:26 AM
[2016-11-22] MEDS: POT PHOSPHATE MONOBASIC W/ SOD TAB PO SCH ×2 (09:13→21:37)
[2016-11-22] MEDS: FUROSEMIDE INJ 80 MG in SYRINGE 0 ML IV SCH ×2 (09:13→18:05)
[2016-11-22] MEDS: PANTOprazole SOD 40 MG TAB PO SCH (09:13)
[2016-11-22] MEDS: DOCUSATE SODIUM 100 MG CAP PO SCH ×2 (09:13→21:37)
[2016-11-22] MEDS: INSULIN HUMAN REGULAR SC SCH ×4 (09:15→21:41)
[2016-11-22] MEDS: CHOLESTYRAMINE LIGHT 4 GM PKT PO SCH ×2 (10:00→21:44)
--- NOTE | 2016-11-22 14:09 | DIAGNOSTIC IMAGING REPORT ---
(CHEST) THORAX WITHOUT CLINICAL HISTORY: hypoxia COMPARISON STUDY: 09/05/2016 CT DOSE: 275.15 mGy.cm TECHNIQUE: CT of the thorax was performed from the thoracic inlet to the lung bases. Images are reviewed in the axial, sagittal, and coronal planes. IV contrast was not administered for this examination. A dose lowering technique was utilized adhering to the principles of ALARA. FINDINGS: Thyroid: Imaged portions of the thyroid gland are normal in appearance. Thoracic aorta: The thoracic aorta is normal in course and caliber, noting standard 3 vessel arch anatomy. Heart: There is a small pericardial effusion Lungs and pleural spaces: There is a moderate right pleural effusion and small left pleural effusion. There is a hiatal hernia. There are dependent atelectatic changes. There are left upper lobe groundglass opacities, which were not present the prior study. This may represent a pneumonitis. There is also a small 15 mm groundglass opacity within the right upper lobe, likely inflammatory. Mediastinum: There is no mediastinal lymphadenopathy. Betty: There is no evidence of pathologic hilar adenopathy given the limitations of a noncontrast study Axilla: Clear. Upper abdomen: There is ascites. There is splenomegaly. The gallbladder surgically absent. Skeletal structures: There are no lytic or blastic osseous lesions. IMPRESSION: 1. Moderate right pleural effusion and small left pleural effusion with basilar atelectasis 2. Groundglass left upper lobe opacities, suspicious for a pneumonitis. Clinical and imaging follow-up is recommended 3. Large hiatal hernia 4. Ascites. Splenomegaly. Electronically signed by: Shayan Bhatt M.D. 11/22/2016 2:08 PM Dictated Date/Time: 11/22/2016 2:02 PM
--- NOTE | 2016-11-22 14:29 | Nephrology Progress Note ---
Nephrology Progress Note Date of Service: Nov 22, 2016. Subjective 76 yo female with arturo/ckd and liver disease who had aspiration and now developing significant pneumonia. ct scan shows ground glass opacities suggestive of pneumonia with underlying bibasilar effusions. pt emotional. increased lasix dose and only with 400cc out. creatinine trending up. Objective Date Time Temp Pulse Resp B/P (MAP) Pulse Ox O2 Delivery O2 Flow Rate FiO2 11/22/16 12:31 37.0 114 20 133/61 (85) 95 Nasal Cannula 2.0 11/22/16 11:24 110 16 95 Nasal Cannula 2.0 11/22/16 09:01 100 16 96 Nasal Cannula 3.0 11/22/16 08:00 Nasal Cannula 2.0 11/22/16 07:28 36.8 106 20 135/64 (87) 95 Nasal Cannula 2.0 11/22/16 07:14 102 16 94 Nasal Cannula 2.0 11/22/16 03:55 36.8 104 18 131/68 (89) 93 Nasal Cannula 2.0 11/22/16 01:45 101 16 95 Nasal Cannula 2.0 11/22/16 00:05 36.8 102 20 133/65 (87) 96 Nasal Cannula 2.0 11/21/16 19:19 88 12 95 Nasal Cannula 2.0 11/21/16 19:02 36.9 111 24 121/66 (84) 96 2.0 11/21/16 16:00 Nasal Cannula 2.0 11/21/16 15:06 36.8 108 22 116/82 (93) 96 Nasal Cannula 2.0 Physical Exam: General-aaox3 Eyes-no scleral icterus ENT-mmm Neck-supple Lungs-+wheeze Heart-tachycardia Abdomen-bs+ s/nd Extremities-+1 edema-pitting Neuro-nonfocal Current Inpatient Medications Medications (Trade) Dose Ordered Sig/Edilson Route Start Time Stop Time Status Last Admin Dose Admin Albuterol (Ventolin Hfa Inhaler) 2 puffs Q4 PRN INH 11/12/16 22:00 12/12/16 21:59 Atorvastatin Calcium (Lipitor Tab) 10 mg HS PO 11/13/16 21:00 12/13/16 20:59 11/21/16 20:28 10 MG Cholestyramine Resin (Questran Powder Light) 4 gm BID@10,22 PO 11/12/16 22:00 12/12/16 21:59 11/21/16 12:57 4 GM Ondansetron HCl (Zofran Tab) 4 mg Q6H PRN PO 11/12/16 22:00 12/12/16 21:59 Pantoprazole Sodium (Protonix Tab) 40 mg DAILY PO 11/13/16 09:00 12/13/16 08:59 11/22/16 09:13 40 MG Buspirone HCl (Buspar Tab) 10 mg TID PO 11/13/16 09:00 12/13/16 08:59 11/22/16 09:13 10 MG Loperamide HCl (Imodium Cap) 2 mg Q12H PRN PO 11/12/16 22:00 12/12/16 21:59 11/14/16 21:05 2 MG Potassium/ Phosphorus/Sodium (Phospha 250 Neutral 155-852-130 Mg) 1 tab BID PO 11/13/16 09:00 12/13/16 08:59 11/22/16 09:13 1 TAB Mirtazapine (Remeron Tab) 15 mg HS PO 11/13/16 21:00 12/13/16 20:59 11/21/16 20:36 15 MG Insulin Human Regular (novoLIN-R) SLIDING SCALE IF C... ACHS SC 11/17/16 16:15 12/17/16 16:14 11/22/16 12:03 4 UNITS Glucose (Glucose 40% Gel) 15-30 GRAMS 15 GRAMS... UD PRN PO 11/17/16 12:45 12/17/16 12:44 Glucose (Glucose Chew Tab) 4-8 Tablets 4 Tabl... UD PRN PO 11/17/16 12:45 12/17/16 12:44 Dextrose (Dextrose 50% 50ML Syringe) 25-50ML OF 50% DW IV FOR... UD PRN IV 11/17/16 12:45 12/17/16 12:44 Glucagon (Glucagon Inj) 1 mg UD PRN SQ 11/17/16 12:45 12/17/16 12:44 Polyethylene (Miralax Powder Packet) 17 gm DAILY PRN PO 11/17/16 12:45 12/17/16 12:44 Docusate Sodium (coLACE CAP) 100 mg BID PO 11/17/16 21:00 12/17/16 20:59 11/22/16 09:13 100 MG Insulin Glargine (Lantus Solostar Pen) 5 units HS SC 11/20/16 21:00 12/20/16 20:59 11/21/16 20:35 5 UNITS Enteral Nutritional Formula (Boost) 0.5 can QID@0730,1000,1400,1900 PO 11/20/16 19:00 12/20/16 18:59 11/22/16 10:00 0.5 CAN Piperacillin Sod/ Tazobactam Sod (Consult) 1 ea UD PRN N/A 11/20/16 19:45 12/20/16 19:44 Piperacillin Sod/ Tazobactam Sod 3.375 gm/Dextrose 115 ml @ 28.75 mls/ hr Q12H IV 11/21/16 06:00 11/28/16 05:59 11/22/16 05:52 28.75 MLS/HR Al Hydroxide/Mg Hydroxide (Maalox Susp) 15 ml Q4H PRN PO 11/21/16 21:45 12/21/16 21:44 11/21/16 21:56 15 ML Ipratropium [place] (Atrovent 0.02% 0.5MG/2.5ML Neb) 0.5 mg Q4R INH 11/22/16 12:00 12/22/16 11:59 11/22/16 11:18 0.5 MG Levalbuterol (Xopenex 1.25MG/ 0.5ML Neb) 1.25 mg Q4R INH 11/22/16 12:00 12/22/16 11:59 11/22/16 11:19 1.25 MG Furosemide 80 mg/ Syringe 8 ml @ 4 mls/min BID17 IV 11/22/16 09:00 12/22/16 08:59 11/22/16 09:13 4 MLS/MIN Last 24 Hours Test 11/21/16 16:30 11/21/16 20:21 11/22/16 05:36 11/22/16 06:49 Bedside Glucose 159 mg/dl 198 mg/dl 166 mg/dl White Blood Count 13.94 K/uL Red Blood Count 3.00 M/uL Hemoglobin 8.9 g/dL Hematocrit 27.7 % Mean Corpuscular Volume 92.3 fL Mean Corpuscular Hemoglobin 29.7 pg Mean Corpuscular Hemoglobin Concent 32.1 g/dl Platelet Count 94 K/uL Mean Platelet Volume 11.1 fL Neutrophils (%) (Auto) 79.7 % Lymphocytes (%) (Auto) 11.0 % Monocytes (%) (Auto) 8.5 % Eosinophils (%) (Auto) 0.5 % Basophils (%) (Auto) 0.1 % Neutrophils # (Auto) 11.11 K/uL Lymphocytes # (Auto) 1.54 K/uL Monocytes # (Auto) 1.18 K/uL Eosinophils # (Auto) 0.07 K/uL Basophils # (Auto) 0.01 K/uL RDW Standard Deviation 72.7 fL RDW Coefficient of Variation 22.4 % Immature Granulocyte % (Auto) 0.2 % Immature Granulocyte # (Auto) 0.03 K/uL Giant Platelets 1+ Anisocytosis PRESENT Echinocytes 1+ Sodium Level 144 mmol/L Potassium Level 4.5 mmol/L Chloride Level 107 mmol/L Carbon Dioxide Level 27 mmol/L Anion Gap 10.0 mmol/L Blood Urea Nitrogen 61 mg/dl Creatinine 3.30 mg/dl Est Creatinine Clear Calc Drug Dose 14.2 ml/min Estimated GFR () 15.0 Estimated GFR (Non- 12.9 BUN/Creatinine Ratio 18.3 Random Glucose 180 mg/dl Calcium Level 8.4 mg/dl Test 11/22/16 11:33 Bedside Glucose 199 mg/dl Assessment & Plan arturo on ckd-creatinine of 3.2. pt with atn and likely creatinine will trend up. pt with 400cc of urine output after increasing lasix to 80 iv bid. adding metolazone 5mg once now. ct scan shows pleural effusions and signs of pneumonia. hold on adding albumin at this time given worsening breathing. will check a random urine sodium. pt was recently evaluated for ascites and was negative.
[2016-11-22] MEDS ORDERED: METOLAZONE 5 MG TAB PO ONE (14:30)
--- NOTE | 2016-11-22 19:18 | PULMONARY CONSULTATION ---
DATE OF CONSULTATION: 11/22/2016 TIME: 05:05 p.m. HISTORY OF PRESENT ILLNESS: The patient is a 76-year-old female who is being seen because of significant shortness of breath. Her history is that she suffered a fall on the date of admission. She fell in the bathroom. Her could not get her up. They called other family members to assist. The patient was not exactly sure why she fell. She may have passed out for just a few seconds. Ultimately, 911 was called. She has had increasing shortness of breath for about a month. She has been hospitalized on multiple occasions fairly recently. She was hospitalized from September 05 through September 08 of this year with nausea. Her diagnosis was listed as hiatal hernia, liver cirrhosis, ascites and varices. Endoscopy was done on September 07. Reportedly, no varices were seen and there was no portal gastropathy. There were stripes of nodular erosions in the antrum. Subsequently, the patient was seen in the Emergency Room on September 21 with ureterolithiasis. She came to the Emergency Room on October 18. Her complaint at that time was weakness and nausea and was thought to be related to dehydration. She was admitted from October 23 through October 29 with acute kidney injury. The patient was admitted at this time on November 12. She had been doing generally better. However, on November 20, she had an episode of probable aspiration at that time she was swallowing a pill. She states she had cut the pill in half and was trying to swallow it. The pill subsequently was able to be coughed out according to the patient, but she had some respiratory distress in the interim. At the present time, the patient remains short of breath. She complains of wheezing. She does have a history of asthma since her 50s. She has been on medicines for asthma over the last several years. She does have an albuterol inhaler at home. She states she had been on some prednisone at some point in time for her asthma and did well with it. She has never smoked. 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 She thought that those places of work may have contributed to her asthma. At home, she has been gradually getting more and more short of breath. She cannot do any significant exertion. She has trouble doing anything more than minor housekeeping. She states she has a birdfeeder that she takes care of. She has to walk somewhat uphill to the birdfeeder and she has found it difficult to do this. She could not tell me how far that was. She has been getting respiratory treatments in here. She is not sure whether they have actually improved her breathing significantly or not. She has not had any chills, fevers or sweats. She has had some cough, but with little sputum. Her appetite had been decreased, but has been improving over the last couple of days. Having said that, she has a very small meal currently with only some watermelon and ice creams, so I do believe she is eating a whole lot. The patient has had a paracentesis done on one of her prior hospital stays. They had checked an ultrasound and they do not feel she has enough fluid to do a tap. Her x-rays have been showing pleural effusion. She did undergo a CAT scan of the chest today. A CAT scan shows at least a moderate sized right pleural effusion with a very small left effusion. She has quite a large hiatal hernia, which is mainly affecting the left lung. She has some left upper lobe ground-glass opacities not seen on a prior CAT scan done in August and this likely represents some pneumonitis and possibly from aspiration. She also has a 15-mm ground-glass opacity in the right upper lobe. No adenopathy was noted. Splenomegaly was noted. Some ascites was noted. PAST SURGICAL HISTORY: 1. Sinus surgery. 2. Hysterectomy. 3. Appendectomy. 4. Cardiac catheterization. 5. Rectocele. PAST MEDICAL HISTORY: 1. Asthma. 2. Chronic kidney disease, stage IV. 3. Diabetes mellitus. 4. Hyperlipidemia. 5. Hypertension. 6. Anxiety. 7. Reflux. 8. MORRISON. 9. Esophageal varices. 10. Hiatal hernia. FAMILY HISTORY: The patient's father had black lung. The history and physical in the chart says it was lung cancer, but when I questioned the patient carefully, it was black lung. He had been a minor. Mother had heart disease. SOCIAL HISTORY: Tobacco never. ETOH -- None. ALLERGIES: ERYTHROMYCIN, WHICH CAUSED ABDOMINAL PAIN AND BUTORPHANOL, WHICH APPARENTLY GAVE SOME PSYCHIATRIC REACTION. MEDICATIONS AT HOME: 1. Amlodipine 2.5 mg daily. 2. Atorvastatin 10 mg daily. 3. Buspirone 10 mg t.i.d. 4. Cholestyramine 4 grams b.i.d. 5. Fluoxetine 80 mg daily. 6. Furosemide 40 mg daily. 7. Lutein 20 mg daily. 8. Midodrine 5 mg t.i.d. 9. Pantoprazole 40 mg daily. 10. Potassium b.i.d. 11. Ventolin HFA p.r.n. 12. Loperamide p.r.n. 13. Ondansetron p.r.n. REVIEW OF SYSTEMS: GENERAL: The patient's energy level has been very poor. NEUROLOGIC: She did have a fall at home as noted with questionable loss of consciousness. She has been overall weak. OPHTHALMIC: No visual complaints. ENT: Has hearing loss. CARDIAC: No chest pain. She has noticed some palpitations. PULMONARY: As noted above. GASTROINTESTINAL: As noted above. GENITOURINARY: She states she is not urinating a whole lot now. She does have a Clark in place. MUSCULOSKELETAL: No acute complaints of myalgias or arthralgias. DERMATOLOGIC: No rashes. She has had significant edema. ENDOCRINE: No lymphadenopathy. PHYSICAL EXAMINATION: GENERAL: The patient is a 76-year-old female who seems quite weak. She was in no distress at rest. She was cooperative, alert and oriented. She seemed depressed. VITAL SIGNS: Temperature was 36.7. Heart rate was 112 per minute. The rhythm was regular. Blood pressure 145/69. HEENT: Pupils were reactive to light. Nares were clear. Mouth exam shows that she has a few teeth on the bottom. She has no teeth on top. She states her top dentures gag her. NECK: Veins are distended. This is with the patient sitting upright. CHEST: Normal development. Percussion reveals dullness in the right lower one half. Auscultation revealed decreased breath sounds in the right lower one half. Wheezes were heard bilaterally on expiration. Saturation was 97% on 3 liters. ABDOMEN: Seems like it was distended. The bowel sounds were active. There was some tympany to percussion. There was no tenderness to palpation. The margin of the liver was palpable. EXTREMITIES: Revealed a support hose up to the knees. She is noted to have significant edema up to the pelvis. DIAGNOSTIC STUDIES: Gallbladder ultrasound showed a cirrhotic liver. She is status post cholecystectomy. There was only a small volume of ascites. This study, which was done November 12, reported a small right pleural effusion. LABORATORY DATA: White blood cell count today is 13.94. Hemoglobin is 8.9. Platelets are 94,000. She did have a blood gas done in November 20 showing a pH of 7.42 with a pCO2 of 36 and a pO2 of 112 on 15 liters of oxygen. BUN today is 61 with a creatinine of 3.3. On admission, her BUN was 32 with a creatinine of 2.5. Blood sugar was 199 today. The patient's troponin levels on admission were as high as 4.05. IMPRESSIONS: 1. Moderate right pleural effusion and small left effusion. 2. Asthma by history. 3. Pneumonia, left upper lobe -- likely due to aspiration. 4. Chronic kidney disease, stage IV. 5. Large hiatal hernia. 6. Nonalcoholic steatohepatitis. 7. Splenomegaly. COMMENTS AND RECOMMENDATIONS: The patient sounds overall modestly tight. She also has a moderate sized right pleural effusion. I am going to estimate if she would have 500 mL or more. The pleural effusion may well be related to her underlying liver disease or kidney disease. Cannot exclude other causes. She did have an echo done in this hospital stay that shows a normal LV function with an ejection fraction of 60%-65%. Grade 1 diastolic dysfunction was noted. There was a small loculated anterior pericardial effusion without hemodynamic consequence. The patient is receiving neb treatments with levalbuterol and ipratropium. She is on Zosyn presumably for the possible aspiration pneumonia. I believe the patient would benefit from a thoracentesis. I explained this procedure to the patient. This gives an opportunity to see if removing the pleural fluid significantly improves her breathing. It also allows us to analyze the fluid. Dr. Phoenix will do a thoracentesis early in the morning tomorrow. I am going to give the patient some Solu-Medrol to see if this would help with her wheezing as well. She is diabetic and needs to have her sugars followed carefully. Thank you very much for asking me to assist in her care. PETRA
[2016-11-22] MEDS: ATORVASTATIN 10 MG TAB PO SCH (21:37)
[2016-11-22] MEDS: MIRTAZAPINE TAB 15 MG TAB PO SCH (21:39)
[2016-11-22] MEDS: INSULIN GLARGINE SOLOSTAR 100 UNITS/ML 3 ML PEN SC SCH (21:42)
[2016-11-23] VITALS (12 sets, daily range): BP systolic 127–144; BP diastolic 55–83; PULSE 84–114; TEMP 36.7–37.2; O2SAT 94–99
[2016-11-23] MEDS: IPRATROPIUM BROMIDE NEB SOLN 0.02% 2.5 ML VIAL INH SCH ×6 (03:31→23:09)
[2016-11-23] MEDS: LEVALBUTEROL 1.25MG/0.5ML NEB INH SCH ×6 (03:32→23:09)
[2016-11-23] MEDS: PIPERACILL/TAZOBAC IV 3.375 GM in DEXTROSE 5% 100ML IV SCH ×2 (05:52→17:10)
[2016-11-23 06:50] LABS: BUN/CREATININE RATIO 17.5 (10-20); CALCIUM 8.6 mg/dl (8.5-10.1); CREATININE 3.6 mg/dl (0.60-1.20); POTASSIUM 4.3 mmol/L (3.5-5.1)
[2016-11-23] MEDS: BOOST VANILLA PO SCH ×2 (07:30)
--- NOTE | 2016-11-23 08:18 | Nephrology Progress Note ---
Nephrology Progress Note Date of Service: Nov 23, 2016. Subjective 76 yo female with arturo/ckd and liver disease who had aspiration and now with pneumonia and continues to have pleural effusions as well. in an attempt to help improve her pulmonary function, increased her diuretics with minimal response and creatinine continues to subsequently trend up. pt underwent thoracentesis this morning and removed about 800cc. pt more comfortable. Objective Date Time Temp Pulse Resp B/P (MAP) Pulse Ox O2 Delivery O2 Flow Rate FiO2 11/23/16 07:19 109 22 144/83 (103) 94 Nasal Cannula 2.0 11/23/16 07:08 84 14 95 Nasal Cannula 2.0 11/23/16 04:15 Nasal Cannula 3.0 11/23/16 03:41 37.0 102 20 140/71 (94) 95 Nasal Cannula 2.0 11/23/16 03:32 104 14 95 Nasal Cannula 2.0 11/23/16 00:01 Nasal Cannula 3.0 11/23/16 00:00 37.2 114 22 136/69 (91) 94 Nasal Cannula 2.0 11/22/16 23:09 110 16 95 Nasal Cannula 2.0 11/22/16 20:00 95 Nasal Cannula 3.0 11/22/16 18:57 36.6 112 21 120/63 (82) 95 Oxymask 2.0 11/22/16 18:54 114 16 95 Nasal Cannula 2.0 11/22/16 16:00 Nasal Cannula 2.0 11/22/16 15:31 112 16 97 Nasal Cannula 3.0 11/22/16 15:17 36.7 109 14 145/69 (94) 95 Room Air 11/22/16 12:31 37.0 114 20 133/61 (85) 95 Nasal Cannula 2.0 11/22/16 12:00 Nasal Cannula 2.0 11/22/16 12:00 Nasal Cannula 2.0 11/22/16 11:24 110 16 95 Nasal Cannula 2.0 11/22/16 09:01 100 16 96 Nasal Cannula 3.0 Physical Exam: General-aaox3 Eyes-no scleral icterus ENT-mmm Neck-supple Lungs-cta Heart-tachycardia Abdomen-bs+ s/nd Extremities-+1 edema-pitting Neuro-nonfocal Current Inpatient Medications Medications (Trade) Dose Ordered Sig/Edilson Route Start Time Stop Time Status Last Admin Dose Admin Albuterol (Ventolin Hfa Inhaler) 2 puffs Q4 PRN INH 11/12/16 22:00 12/12/16 21:59 Atorvastatin Calcium (Lipitor Tab) 10 mg HS PO 11/13/16 21:00 12/13/16 20:59 11/22/16 21:37 10 MG Cholestyramine Resin (Questran Powder Light) 4 gm BID@10,22 PO 11/12/16 22:00 12/12/16 21:59 11/21/16 12:57 4 GM Ondansetron HCl (Zofran Tab) 4 mg Q6H PRN PO 11/12/16 22:00 12/12/16 21:59 Pantoprazole Sodium (Protonix Tab) 40 mg DAILY PO 11/13/16 09:00 12/13/16 08:59 11/22/16 09:13 40 MG Buspirone HCl (Buspar Tab) 10 mg TID PO 11/13/16 09:00 12/13/16 08:59 11/22/16 21:39 10 MG Loperamide HCl (Imodium Cap) 2 mg Q12H PRN PO 11/12/16 22:00 12/12/16 21:59 11/14/16 21:05 2 MG Potassium/ Phosphorus/Sodium (Phospha 250 Neutral 155-852-130 Mg) 1 tab BID PO 11/13/16 09:00 12/13/16 08:59 11/22/16 21:37 1 TAB Mirtazapine (Remeron Tab) 15 mg HS PO 11/13/16 21:00 12/13/16 20:59 11/22/16 21:39 15 MG Insulin Human Regular (novoLIN-R) SLIDING SCALE IF C... ACHS SC 11/17/16 16:15 12/17/16 16:14 11/22/16 21:41 2 UNITS Glucose (Glucose 40% Gel) 15-30 GRAMS 15 GRAMS... UD PRN PO 11/17/16 12:45 12/17/16 12:44 Glucose (Glucose Chew Tab) 4-8 Tablets 4 Tabl... UD PRN PO 11/17/16 12:45 12/17/16 12:44 Dextrose (Dextrose 50% 50ML Syringe) 25-50ML OF 50% DW IV FOR... UD PRN IV 11/17/16 12:45 12/17/16 12:44 Glucagon (Glucagon Inj) 1 mg UD PRN SQ 11/17/16 12:45 12/17/16 12:44 Polyethylene (Miralax Powder Packet) 17 gm DAILY PRN PO 11/17/16 12:45 12/17/16 12:44 Docusate Sodium (coLACE CAP) 100 mg BID PO 11/17/16 21:00 12/17/16 20:59 11/22/16 21:37 100 MG Insulin Glargine (Lantus Solostar Pen) 5 units HS SC 11/20/16 21:00 12/20/16 20:59 11/22/16 21:42 5 UNITS Enteral Nutritional Formula (Boost) 0.5 can QID@0730,1000,1400,1900 PO 11/20/16 19:00 12/20/16 18:59 11/22/16 18:08 0.5 CAN Piperacillin Sod/ Tazobactam Sod (Consult) 1 ea UD PRN N/A 11/20/16 19:45 12/20/16 19:44 Piperacillin Sod/ Tazobactam Sod 3.375 gm/Dextrose 115 ml @ 28.75 mls/ hr Q12H IV 11/21/16 06:00 11/28/16 05:59 11/23/16 05:52 28.75 MLS/HR Al Hydroxide/Mg Hydroxide (Maalox Susp) 15 ml Q4H PRN PO 11/21/16 21:45 12/21/16 21:44 11/21/16 21:56 15 ML Ipratropium [place] (Atrovent 0.02% 0.5MG/2.5ML Neb) 0.5 mg Q4R INH 11/22/16 12:00 12/22/16 11:59 11/23/16 07:07 0.5 MG Levalbuterol (Xopenex 1.25MG/ 0.5ML Neb) 1.25 mg Q4R INH 11/22/16 12:00 12/22/16 11:59 11/23/16 07:07 1.25 MG Furosemide 80 mg/ Syringe 8 ml @ 4 mls/min BID17 IV 11/22/16 09:00 12/22/16 08:59 11/22/16 18:05 4 MLS/MIN Last 24 Hours Test 11/22/16 11:33 11/22/16 16:00 11/23/16 05:44 11/23/16 06:30 Bedside Glucose 199 mg/dl 173 mg/dl 163 mg/dl Sodium Level 142 mmol/L Potassium Level 4.3 mmol/L Chloride Level 106 mmol/L Carbon Dioxide Level 26 mmol/L Anion Gap 10.0 mmol/L Blood Urea Nitrogen 63 mg/dl Creatinine 3.60 mg/dl Est Creatinine Clear Calc Drug Dose 13.1 ml/min Estimated GFR () 13.5 Estimated GFR (Non- 11.6 BUN/Creatinine Ratio 17.5 Random Glucose 150 mg/dl Calcium Level 8.6 mg/dl Assessment & Plan arturo on ckd-creatinine was in the low 3s and has been trending up in the setting of increased diuretics to 3.6. pt had a liter out yesterday and difficult with her low protein stores. will reduce the lasix to albumin with lasix 40 iv bid.
--- NOTE | 2016-11-23 08:23 | Procedure Note ---
Procedure Note Date of Service Nov 23, 2016. Procedure Note Procedures: Right sided Thoracentesis Consent: obtained via the patient and placed into the chart Pre-Procedural Dx: Right-sided pleural effusion Post-Procedural Dx: Right-sided pleural effusion Analgesia: 8cc of 1% Liquid Lidocaine Procedure: The patient was placed in an upright position and thoracic US was used to select a spot for the procedure. A spot along the posterior axillary line was marked in the 7th intercostal space. The patient was then draped and prepped in a sterile fashion. A modified Seldinger technique was then used for catheter placement. Flowing this approximately 800cc of yellow pleural fluid was removed. The patient was then cleaned and placed at a 60 degree angle in the bed were the US was used to evaluate for possible pneumothorax. The US showed good lung sliding and [place] signs. EBL: none Complications: none
[2016-11-23 09:29] LABS: PLEURAL FLUID TOTAL PROTEIN 2.2 g/dl
[2016-11-23] MEDS ORDERED: PHARMACY GLYCEMIC MGMT CONSULT PRN (09:47)
[2016-11-23] MEDS: PANTOprazole SOD 40 MG TAB PO SCH (09:48)
[2016-11-23] MEDS: DOCUSATE SODIUM 100 MG CAP PO SCH ×2 (09:48→20:32)
--- NOTE | 2016-11-23 09:48 | Progress Note ---
Medicine Progress Note Date & Time of Visit: Nov 23, 2016 at 09:42. Subjective patient seen resting in bed s/p thoracentesis states her breathing seems to have improved still has dry cough, less denies chest pain, palpitations, dizziness no other symptoms Objective Last 8 Hrs Date Time Temp Pulse Resp B/P (MAP) Pulse Ox O2 Delivery O2 Flow Rate FiO2 11/23/16 07:19 109 22 144/83 (103) 94 Nasal Cannula 2.0 11/23/16 07:08 84 14 95 Nasal Cannula 2.0 11/23/16 04:15 Nasal Cannula 3.0 11/23/16 03:41 37.0 102 20 140/71 (94) 95 Nasal Cannula 2.0 11/23/16 03:32 104 14 95 Nasal Cannula 2.0 Physical Exam: General- oriented x 3, not in distress, mild tachypnea, speaks in sentences with no effort Neck- no JVD Lungs- scattered wheeze bilaterally Heart- regular rhythm; no murmur, mild tachycardia Abdomen- normal bowel sounds, soft, nontender Extremities- trace lower leg edema, no calf tenderness Neuro- alert, oriented x 3;no gross focal deficits Skin- warm & dry Laboratory Results: Last 24 Hours Test 11/22/16 11:33 11/22/16 16:00 11/23/16 05:44 11/23/16 06:30 Bedside Glucose 199 mg/dl 173 mg/dl 163 mg/dl Sodium Level 142 mmol/L Potassium Level 4.3 mmol/L Chloride Level 106 mmol/L Carbon Dioxide Level 26 mmol/L Anion Gap 10.0 mmol/L Blood Urea Nitrogen 63 mg/dl Creatinine 3.60 mg/dl Est Creatinine Clear Calc Drug Dose 13.1 ml/min Estimated GFR () 13.5 Estimated GFR (Non- 11.6 BUN/Creatinine Ratio 17.5 Random Glucose 150 mg/dl Calcium Level 8.6 mg/dl Test 11/23/16 08:00 11/23/16 09:21 Pleural Fluid Total Protein 2.2 g/dl Pleural Fluid LDH 101 IU Pleural Fluid Glucose 162 mg/dl Pleural Fluid Amylase 11 U/L Date/Time Source Procedure Growth Status 11/23/16 08:00 Pleural Fluid (Thoracentesis) Right Acid Fast Stain Pending Received 11/23/16 08:00 Pleural Fluid (Thoracentesis) Right Mycobacterial Culture Pending Received 11/23/16 08:00 Pleural Fluid (Thoracentesis) Right Gram Stain Pending Received 11/23/16 08:00 Pleural Fluid (Thoracentesis) Right Bacterial Culture Pending Received Assessment & Plan This is a 76 year old female with a PMH of CKD stage IV, DM2, HTN, HLD, GERD, hiatal hernia, MORRISON cirrhosis presented with a fall and found to have elevated troponin and creatinine levels ACUTE HYPOXIC RESPIRATORY FAILURE SECONDARY TO RIGHT PLEURAL EFFUSION POSSIBLE ASPIRATION PULMONARY EDEMA -- s/p Thoracentesis 11/23/[address] Phoenix drained 800cc PF studies pending -- on Zosyn IV Day 4 Speech Therapy Eval: Dental soft, slippery diet will check procalcitonin, if negative, d/c Zosyn will add Solumedrol 40mg IV bid Pharm Glycemic Control consult placed -- on Lasix 40mg IV + albumin ACUTE RENAL FAILURE ON Chronic Kidney Disease stage IV creatinine on admission 2.5 Creatine on 11/01/16 was 1.7 Nephrology on board -- crea 3.6 resumed Lasix 40mg IV + albumin BID MORRISON cirrhosis -- with some pleural effusion, likely hepatic hydrothorax -- GI reconsulted Liver US to quantify ascites: minimal -- no plans for paracentesis Elevated Troponin Level Possible related to recent fall and elevated creatine no chest pain, no EKG changes, no significant findings on echo Mechanical Fall in the setting of Orthostatic Hypotension Norvasc was discontinued Midodrine was discontinued due to elevated BP Continue PT/OT -- accepted to SNF Hypotension BP has been stable Midodrine was discontinued Thrombocytopenia Related to MORRISON ascites Platelet 92 No sign of bleeding HIT score 2 Depression/Anxiety Prozac was discontinued Continue Remeron stable Hiatal Hernia/GERD nonsurgical continue PPI emergency manager consulted Boost BID added as per emergency manager DM2 diet-controlled last Ha1c ~ 6.4% on 09/29 DVT ppx SCDs ambulation due to low plt, no anticoagulation CODE STATUS FULL CODE DISPOSITION pending needs to be transitioned to SNF Consultants: Nephrology Consultants: Nephrology Current Inpatient Medications: Current Inpatient Medications Medications (Trade) Dose Ordered Sig/Edilson Route Start Time Stop Time Status Last Admin Dose Admin Albuterol (Ventolin Hfa Inhaler) 2 puffs Q4 PRN INH 11/12/16 22:00 12/12/16 21:59 Atorvastatin Calcium (Lipitor Tab) 10 mg HS PO 11/13/16 21:00 12/13/16 20:59 11/22/16 21:37 10 MG Cholestyramine Resin (Questran Powder Light) 4 gm BID@10,22 PO 11/12/16 22:00 12/12/16 21:59 11/21/16 12:57 4 GM Ondansetron HCl (Zofran Tab) 4 mg Q6H PRN PO 11/12/16 22:00 12/12/16 21:59 Pantoprazole Sodium (Protonix Tab) 40 mg DAILY PO 11/13/16 09:00 12/13/16 08:59 11/22/16 09:13 40 MG Buspirone HCl (Buspar Tab) 10 mg TID PO 11/13/16 09:00 12/13/16 08:59 11/22/16 21:39 10 MG Loperamide HCl (Imodium Cap) 2 mg Q12H PRN PO 11/12/16 22:00 12/12/16 21:59 11/14/16 21:05 2 MG Potassium/ Phosphorus/Sodium (Phospha 250 Neutral 155-852-130 Mg) 1 tab BID PO 11/13/16 09:00 12/13/16 08:59 11/22/16 21:37 1 TAB Mirtazapine (Remeron Tab) 15 mg HS PO 11/13/16 21:00 12/13/16 20:59 11/22/16 21:39 15 MG Insulin Human Regular (novoLIN-R) SLIDING SCALE IF C... ACHS SC 11/17/16 16:15 12/17/16 16:14 11/22/16 21:41 2 UNITS Glucose (Glucose 40% Gel) 15-30 GRAMS 15 GRAMS... UD PRN PO 11/17/16 12:45 12/17/16 12:44 Glucose (Glucose Chew Tab) 4-8 Tablets 4 Tabl... UD PRN PO 11/17/16 12:45 12/17/16 12:44 Dextrose (Dextrose 50% 50ML Syringe) 25-50ML OF 50% DW IV FOR... UD PRN IV 11/17/16 12:45 12/17/16 12:44 Glucagon (Glucagon Inj) 1 mg UD PRN SQ 11/17/16 12:45 12/17/16 12:44 Polyethylene (Miralax Powder Packet) 17 gm DAILY PRN PO 11/17/16 12:45 12/17/16 12:44 Docusate Sodium (coLACE CAP) 100 mg BID PO 11/17/16 21:00 12/17/16 20:59 11/22/16 21:37 100 MG Insulin Glargine (Lantus Solostar Pen) 5 units HS SC 11/20/16 21:00 12/20/16 20:59 11/22/16 21:42 5 UNITS Enteral Nutritional Formula (Boost) 0.5 can QID@0730,1000,1400,1900 PO 11/20/16 19:00 12/20/16 18:59 11/22/16 18:08 0.5 CAN Piperacillin Sod/ Tazobactam Sod (Consult) 1 ea UD PRN N/A 11/20/16 19:45 12/20/16 19:44 Piperacillin Sod/ Tazobactam Sod 3.375 gm/Dextrose 115 ml @ 28.75 mls/ hr Q12H IV 11/21/16 06:00 11/28/16 05:59 11/23/16 05:52 28.75 MLS/HR Al Hydroxide/Mg Hydroxide (Maalox Susp) 15 ml Q4H PRN PO 11/21/16 21:45 12/21/16 21:44 11/21/16 21:56 15 ML Ipratropium [place] (Atrovent 0.02% 0.5MG/2.5ML Neb) 0.5 mg Q4R INH 11/22/16 12:00 12/22/16 11:59 11/23/16 07:07 0.5 MG Levalbuterol (Xopenex 1.25MG/ 0.5ML Neb) 1.25 mg Q4R INH 11/22/16 12:00 12/22/16 11:59 11/23/16 07:07 1.25 MG Furosemide 40 mg/ Albumin Human 54 ml @ 54 mls/hr BID IV 11/23/16 09:00 11/26/16 08:59
[2016-11-23] MEDS: INSULIN HUMAN REGULAR SC SCH (09:57)
[2016-11-23] MEDS: CHOLESTYRAMINE LIGHT 4 GM PKT PO SCH ×2 (10:00→20:29)
[2016-11-23] MEDS ORDERED: INSULIN GLARGINE SOLOSTAR 100 UNITS/ML 3 ML PEN SC ONE (10:00)
[2016-11-23 10:24] LABS: PLEURAL FLUID APPEARANCE HAZY; PLEURAL FLUID COLOR YELLOW; PLEURAL FLUID MONONUC RELAT 85.8 %; PLEURAL FLUID POLYNUC 14.2 %; PLEURAL FLUID SOURCE RIGHT LUNG; PLEURAL FLUID WBC (A) 198 /uL
[2016-11-23] MEDS: METHYLPREDNISOLONE IV 40 MG in SYRINGE 0 ML IV SCH ×2 (10:26→20:34)
[2016-11-23] MEDS: ALBUMIN 25% 50 ML with FUROSEMIDE INJ 40 MG IV SCH ×4 (10:26→20:37)
[2016-11-23] MEDS: BOOST GLUCOSE CONTROL PO SCH ×3 (10:34→20:37)
[2016-11-23] MEDS: POT PHOSPHATE MONOBASIC W/ SOD TAB PO SCH ×2 (12:11→20:34)
[2016-11-23] MEDS: INSULIN ASPART 100 UNITS/ML 3 ML PEN SC SCH ×3 (12:13→20:33)
--- NOTE | 2016-11-23 12:21 | Pharmacy Progress Note ---
Glycemic Control Intl Consult Date of Service Nov 23, 2016. Scope Glycemic Pharmacist consulted by Dr Brower on 11/23/2016 for glycemic control and to write orders per [facility] inpatient glycemic control protocol Objective Weight (Kilograms): 73.600 Accuchecks BSG (last 24hrs): Test 11/22/16 11:33 11/22/16 16:00 11/23/16 05:44 11/23/16 06:30 Bedside Glucose 199 mg/dl (70-90) 173 mg/dl (70-90) 163 mg/dl (70-90) Random Glucose 150 mg/dl (70-99) Laboratory Data (last 24hrs) Test 11/23/16 05:44 Anion Gap 10.0 mmol/L BUN/Creatinine Ratio 17.5 Blood Urea Nitrogen 63 mg/dl Creatinine 3.60 mg/dl Potassium Level 4.3 mmol/L Sodium Level 142 mmol/L HbA1c Test 11/18/16 06:40 Hemoglobin A1c 6.8 % (4.5-5.6) H Recent Pertinent Medications Outpatient Anti-diabetic Regimen: * diet controlled The patient is currently receiving: * Basal insulin: Lantus 5 units every 24 hours at bedtime * Correctional Insulin: Regular Correction per scale ACHS Goal Range: Low 100 mg/dL - High 140 mg/dL Correction Factor: 30 mg/dL/unit * Prandial insulin: Per carb ratio of 1 unit per 10 grams CHO consumed Risk Factors for Insulin Resistance: * Steroids: started methylprednisolone 40 mg IV q12 this morning * Infection: possible aspiration PNA, on Zosyn day 3 * Recent Surgery: POD 0 for thoracentesis * Diet: type 2 diabetic diet Assessment & Plan ASSESSMENT: * ADA & AACE recommend a goal blood sugar range 140-180 mg/dl for the majority of critically ill & non-critically ill patients. However, more stringent targets may be selected in individual cases. Will utilize more stringent goal of 110-140mg/dl based on patient age & comorbidities. Additionally, tighter glycemic control is warranted to facilitate infection healing. * Ms Ng is a 76 y/o F admitted for a R pleural effusion after a fall at home. She has had several admissions in the past couple of months. The patient has had difficult with breathing and coughing; it is believed she recently aspirated. Her hospital stay has been complicated by worsening kidney function, MORRISON with ascites and esophageal varices. The patient underwent a thoracentesis today. * Over her hospital, the patient has had increasing insulin requirements from correctional insulin with regular insulin to the addition of Lantus at bedtime. Now with the addition of steroids, pharmacy has been consulted to provide additional help. Patient's fasting blood sugar remains elevated even with addition of Lantus 5 units. Start weight-based stress of 1-2 Lantus dosing twice daily. This provides more flexibility in Lantus dosing with changing steroid dosing. * For correctional insulin, change from Regular insulin to Novolog to prevent stacking. Tighten to weight based stress of 2-3 as weight based stress of 2 was appropriate for patient without steroids. Spoke to dietary to change Boost to Boost glucose control with meals to provide better carbohydrate coverage. PLAN FOR INPATIENT GLYCEMIC CONTROL: * Basal insulin with LANTUS 5-10 units SQ BID (Lantus 5 units if blood sugar less than 140 mg/dL; Lantus 10 units if blood sugar 140 mg/dL or greater) * Correctional Insulin with NOVOLOG per scale ACHS * Goal Range: Low 110 mg/dL - High 140 mg/dL * Correction Factor: 25 mg/dL/unit * Nutritional / Prandial insulin per carb ratio of 1 unit per 8 grams CHO consumed RECOMMENDATIONS FOR DISCHARGE * Patient's HbA1C is reasonably controlled for age and co-morbidities. May continue diet control at home. * Please note that the plan above was derived based on current level of insulin resistance and hospital stress. These recommendations are appropriate for inpatient admission only. Plan of care upon discharge will need to be reassessed to avoid potential outpatient hypo/hyperglycemia. Thank you.
[2016-11-23] MEDS: MIRTAZAPINE TAB 15 MG TAB PO SCH (20:32)
[2016-11-23] MEDS: ATORVASTATIN 10 MG TAB PO SCH (20:34)
[2016-11-23] MEDS ORDERED: INSULIN GLARGINE SOLOSTAR 100 UNITS/ML 3 ML PEN SC SCH (21:00)
[2016-11-24] VITALS (15 sets, daily range): BP systolic 119–148; BP diastolic 57–65; PULSE 98–110; TEMP 36.5–37; O2SAT 92–97
[2016-11-24] MEDS: LEVALBUTEROL 1.25MG/0.5ML NEB INH SCH ×6 (03:30→23:19)
[2016-11-24] MEDS: IPRATROPIUM BROMIDE NEB SOLN 0.02% 2.5 ML VIAL INH SCH ×6 (03:30→23:19)
[2016-11-24] MEDS: PIPERACILL/TAZOBAC IV 3.375 GM in DEXTROSE 5% 100ML IV SCH ×2 (05:52→17:17)
[2016-11-24 06:48] LABS: BUN/CREATININE RATIO 18.3 (10-20); CALCIUM 8.7 mg/dl (8.5-10.1); CREATININE 3.9 mg/dl (0.60-1.20); POTASSIUM 4.1 mmol/L (3.5-5.1)
[2016-11-24] MEDS: PANTOprazole SOD 40 MG TAB PO SCH (08:03)
[2016-11-24] MEDS: POT PHOSPHATE MONOBASIC W/ SOD TAB PO SCH ×2 (08:03→19:29)
[2016-11-24] MEDS: DOCUSATE SODIUM 100 MG CAP PO SCH ×2 (08:03→19:28)
[2016-11-24] MEDS: BOOST GLUCOSE CONTROL PO SCH ×4 (08:04→21:00)
[2016-11-24] MEDS: INSULIN ASPART 100 UNITS/ML 3 ML PEN SC SCH ×4 (08:08→21:16)
[2016-11-24] MEDS: INSULIN GLARGINE SOLOSTAR 100 UNITS/ML 3 ML PEN SC SCH ×2 (08:09→21:10)
[2016-11-24] MEDS: ALBUMIN 25% 50 ML with FUROSEMIDE INJ 40 MG IV SCH ×2 (08:16)
--- NOTE | 2016-11-24 08:55 | PULMONARY PROGRESS NOTE ---
DATE: 11/24/2016 TIME: 8:05 a.m. SUBJECTIVE: The patient is sitting out of bed in a chair. She is feeling moderately better. She had a thoracentesis yesterday with removal of 800 mL of fluid. She feels less short of breath and she notices the wheezing is less. Her appetite is still not great. She has only a relatively small amount for breakfast. OBJECTIVE: GENERAL: The patient appears comfortable. VITAL SIGNS: Temperature is 36.9. She has not had any fevers in the past 24 hours. ENT: Unchanged from prior. HEART: The patient's heart rate is 110 per minute. The rhythm is regular. Her blood pressure this morning is 128/64. CHEST: Respiratory rate is 20 breaths per minute. The breath sounds are diminished in both lower lung sellers. There was very mild egophony at the right lower lung field. No wheezing was heard at this time. Saturations were 96% on 2-liter nasal cannula. EXTREMITIES: Continue to show significant edema all the way up to the pelvis. LABORATORY DATA: Pleural fluid analysis shows pleural fluid LDH of 101 and a pleural total protein of 2.2. This is consistent with a transudate. Pleural glucose was 162 and amylase was 11. Electrolytes today show sodium 143, potassium 4.1, chloride 107, bicarb 27. The BUN today is 71 and the prior BUN yesterday was 63. The creatinine today is 3.9 and a creatinine yesterday was 3.6. Blood sugar this morning was 219. Pleural fluid Gram stain showed many WBCs, but no organisms. Pleural fluid AFB is pending. IMPRESSIONS: 1. Pleural effusion -- transudative -- likely secondary to the patient's underlying renal disease or liver disease. 2. Asthma by history. 3. Possible aspiration pneumonia, left upper lobe. 4. Chronic kidney disease stage IV. 5. Large hiatal hernia. 6. Nonalcoholic steatohepatitis. 7. Splenomegaly. COMMENTS AND RECOMMENDATIONS: The patient is better post thoracentesis. Her wheezing seems to have resolved. This is likely secondary to the thoracentesis, but she has been getting some methylprednisolone. I believe we can discontinue that. If her wheezing worsens, then she might be a candidate for some oral prednisone for a few days. She will ultimately need a followup x-ray to see if the fluid is reaccumulating as it may well.
--- NOTE | 2016-11-24 10:00 | Pharmacy Progress Note ---
Glycemic Control Progress Note Date of Service Nov 24, 2016. Scope Glycemic Pharmacist consulted for glycemic control to write orders per [facility] inpatient glycemic control protocol. Objective Accuchecks BSG (last 24hrs): Test 11/23/16 11:04 11/23/16 16:01 11/23/16 20:00 11/24/16 05:34 Bedside Glucose 167 mg/dl (70-90) 228 mg/dl (70-90) 226 mg/dl (70-90) Random Glucose 221 mg/dl (70-99) Test 11/24/16 06:26 Bedside Glucose 219 mg/dl (70-90) HbA1c: Test 11/18/16 06:40 Hemoglobin A1c 6.8 % (4.5-5.6) H Recent Pertinent Medications The patient is currently receiving: * Basal insulin: Lantus SQ BID; 5 units if BSG less than 140 or 10 units if BSG 140 or greater * Correctional Insulin: Novolog Correction per scale ACHS Goal Range: Low 110 mg/dL - High 140 mg/dL Correction Factor: 25 mg/dL/unit * Prandial insulin: Per carb ratio of 1 unit per 8 grams CHO consumed * Oral Agents: none currently Outpatient Anti-Diabetic Meds none; diet controlled Assessment & Plan ASSESSMENT: 11/24/16: * BSGs have ranged 163-228 over the last 24 hrs despite receiving 46 units of SQ insulin * Fasting BSG elevated this AM with 20 units of Lantus on board - will continue to titrate Lantus dose upward while on current Solu-medrol dose * BSGs did not climb significantly post-prandially after CF and CR were adjusted in the afternoon yesterday. Will continue the same CR for now however will increase the correctional insulin dose at this time due to basal insulin deficiency. This will provide more insulin until basal deficiency corrected. PLAN FOR INPATIENT GLYCEMIC CONTROL: * Increasing Lantus SQ BID to 8 units if BSG less than 140, 16 units if BSG 140 or greater * Changing correction factor to 20 mg/dl/unit * Continuing carb ratio 1 unit per 8 grams CHO consumed * Continuing goal range Low 110 mg/dL - High 140 mg/dL * Add BSG check at 0200 tonight and cover with Novolog as above * Reeval insulin requirements with each step down in steroid dose RECOMMENDATIONS FOR DISCHARGE: * * Please note that the plan above was derived based on current level of insulin resistance and hospital stress. These recommendations are appropriate for inpatient admission only. Plan of care upon discharge will need to be reassessed to avoid potential outpatient hypo/hyperglycemia. Thank you.
[2016-11-24] MEDS: CHOLESTYRAMINE LIGHT 4 GM PKT PO SCH ×2 (10:08→21:17)
[2016-11-24] MEDS ORDERED: INSULIN GLARGINE SOLOSTAR 100 UNITS/ML 3 ML PEN SC ONE (13:30)
--- NOTE | 2016-11-24 15:14 | Progress Note ---
Medicine Progress Note Date & Time of Visit: Nov 24, 2016 at 15:03. Subjective patient seen resting in bed, comfortable states breathing is somewhat better today still has dry cough no other symptoms Objective Last 8 Hrs Date Time Temp Pulse Resp B/P (MAP) Pulse Ox O2 Delivery O2 Flow Rate FiO2 11/24/16 12:00 Nasal Cannula 2.0 11/24/16 11:13 106 16 97 Nasal Cannula 2.0 11/24/16 11:03 36.5 104 22 146/65 (92) 97 Nasal Cannula 2.0 11/24/16 08:00 Nasal Cannula 2.0 11/24/16 07:23 104 18 96 Nasal Cannula 2.0 11/24/16 07:10 36.9 99 20 128/64 (85) 94 Nasal Cannula 2.0 Physical Exam: General- oriented x 3, not in distress, speaks in sentences with no effort Neck- no JVD Lungs- mild rales bilateral bases, no wheezing Heart- regular rhythm; no murmur, mild tachycardia Abdomen- normal bowel sounds, soft, nontender Extremities- trace lower leg edema, no calf tenderness Neuro- alert, oriented x 3;no gross focal deficits Skin- warm & dry Laboratory Results: Last 24 Hours Test 11/23/16 16:01 11/23/16 20:00 11/24/16 05:34 11/24/16 06:26 Bedside Glucose 228 mg/dl 226 mg/dl 219 mg/dl Sodium Level 143 mmol/L Potassium Level 4.1 mmol/L Chloride Level 107 mmol/L Carbon Dioxide Level 27 mmol/L Anion Gap 9.0 mmol/L Blood Urea Nitrogen 71 mg/dl Creatinine 3.90 mg/dl Est Creatinine Clear Calc Drug Dose 12.1 ml/min Estimated GFR () 12.2 Estimated GFR (Non- 10.5 BUN/Creatinine Ratio 18.3 Random Glucose 221 mg/dl Calcium Level 8.7 mg/dl Test 11/24/16 11:02 Bedside Glucose 242 mg/dl Assessment & Plan This is a 76 year old female with a PMH of CKD stage IV, DM2, HTN, HLD, GERD, hiatal hernia, MORRISON cirrhosis presented with a fall and found to have elevated troponin and creatinine levels ACUTE HYPOXIC RESPIRATORY FAILURE SECONDARY TO RIGHT PLEURAL EFFUSION POSSIBLE ASPIRATION PULMONARY EDEMA -- s/p Thoracentesis 11/23/[address] Waddington drained 800cc PF studies pending -- on Zosyn IV Day 5 Speech Therapy Eval: Dental soft, slippery diet given Solumedrol 40mg IV bid Pharm Glycemic Control consult placed -- on Lasix 40mg IV + albumin off solumedrol -- improving appreciate Nephro and Pulm SVC input ACUTE RENAL FAILURE ON Chronic Kidney Disease stage IV creatinine on admission 2.5 Creatine on 11/01/16 was 1.7 Nephrology on board -- crea 3.9 on Lasix 40mg IV + albumin BID hold lasix for now as crea is rising MORRISON cirrhosis -- with some pleural effusion, likely hepatic hydrothorax -- GI reconsulted Liver US to quantify ascites: minimal -- no plans for paracentesis Elevated Troponin Level Possible related to recent fall and elevated creatine no chest pain, no EKG changes, no significant findings on echo Mechanical Fall in the setting of Orthostatic Hypotension Norvasc was discontinued Midodrine was discontinued due to elevated BP Continue PT/OT -- accepted to SNF Hypotension BP has been stable Midodrine was discontinued Thrombocytopenia Related to MORRISON ascites Platelet 92 No sign of bleeding HIT score 2 Depression/Anxiety Prozac was discontinued Continue Remeron stable Hiatal Hernia/GERD nonsurgical continue PPI yarn mercerizer operator consulted Boost BID added as per yarn mercerizer operator DM2 diet-controlled last Ha1c ~ 6.4% on 09/29 DVT ppx SCDs ambulation due to low plt, no anticoagulation CODE STATUS FULL CODE DISPOSITION pending needs to be transitioned to SNF Consultants: Nephrology Consultants: Nephrology Current Inpatient Medications: Current Inpatient Medications Medications (Trade) Dose Ordered Sig/Edilson Route Start Time Stop Time Status Last Admin Dose Admin Albuterol (Ventolin Hfa Inhaler) 2 puffs Q4 PRN INH 11/12/16 22:00 12/12/16 21:59 Atorvastatin Calcium (Lipitor Tab) 10 mg HS PO 11/13/16 21:00 12/13/16 20:59 11/23/16 20:34 10 MG Cholestyramine Resin (Questran Powder Light) 4 gm BID@10,22 PO 11/12/16 22:00 12/12/16 21:59 11/24/16 10:08 4 GM Ondansetron HCl (Zofran Tab) 4 mg Q6H PRN PO 11/12/16 22:00 12/12/16 21:59 Pantoprazole Sodium (Protonix Tab) 40 mg DAILY PO 11/13/16 09:00 12/13/16 08:59 11/24/16 08:03 40 MG Buspirone HCl (Buspar Tab) 10 mg TID PO 11/13/16 09:00 12/13/16 08:59 11/24/16 08:03 10 MG Loperamide HCl (Imodium Cap) 2 mg Q12H PRN PO 11/12/16 22:00 12/12/16 21:59 11/14/16 21:05 2 MG Potassium/ Phosphorus/Sodium (Phospha 250 Neutral 155-852-130 Mg) 1 tab BID PO 11/13/16 09:00 12/13/16 08:59 11/24/16 08:03 1 TAB Mirtazapine (Remeron Tab) 15 mg HS PO 11/13/16 21:00 12/13/16 20:59 11/23/16 20:32 15 MG Glucose (Glucose 40% Gel) 15-30 GRAMS 15 GRAMS... UD PRN PO 11/17/16 12:45 12/17/16 12:44 Glucose (Glucose Chew Tab) 4-8 Tablets 4 Tabl... UD PRN PO 11/17/16 12:45 12/17/16 12:44 Dextrose (Dextrose 50% 50ML Syringe) 25-50ML OF 50% DW IV FOR... UD PRN IV 11/17/16 12:45 12/17/16 12:44 Glucagon (Glucagon Inj) 1 mg UD PRN SQ 11/17/16 12:45 12/17/16 12:44 Polyethylene (Miralax Powder Packet) 17 gm DAILY PRN PO 11/17/16 12:45 12/17/16 12:44 Docusate Sodium (coLACE CAP) 100 mg BID PO 11/17/16 21:00 12/17/16 20:59 11/24/16 08:03 100 MG Piperacillin Sod/ Tazobactam Sod (Consult) 1 ea UD PRN N/A 11/20/16 19:45 12/20/16 19:44 Piperacillin Sod/ Tazobactam Sod 3.375 gm/Dextrose 115 ml @ 28.75 mls/ hr Q12H IV 11/21/16 06:00 11/28/16 05:59 11/24/16 05:52 28.75 MLS/HR Al Hydroxide/Mg Hydroxide (Maalox Susp) 15 ml Q4H PRN PO 11/21/16 21:45 12/21/16 21:44 11/21/16 21:56 15 ML Ipratropium [place] (Atrovent 0.02% 0.5MG/2.5ML Neb) 0.5 mg Q4R INH 11/22/16 12:00 12/22/16 11:59 11/24/16 11:13 0.5 MG Levalbuterol (Xopenex 1.25MG/ 0.5ML Neb) 1.25 mg Q4R INH 11/22/16 12:00 12/22/16 11:59 11/24/16 11:13 1.25 MG Furosemide 40 mg/ Albumin Human 54 ml @ 54 mls/hr BID IV 11/23/16 09:00 11/26/16 08:59 11/24/16 08:16 54 MLS/HR Miscellaneous Information (Consult Glycemic Management Pharmacy) 1 ea UD PRN N/A 11/23/16 09:47 12/23/16 09:46 Enteral Nutritional Formula (Boost Glucose Control) 0.5 can ACHS PO 11/23/16 11:00 12/23/16 10:59 11/24/16 11:52 0.5 CAN Insulin Aspart (novoLOG ASPART) SLIDING SCALE ACHS SC 11/23/16 11:00 11/24/16 18:00 11/24/16 11:54 10 UNITS Insulin Glargine (Lantus Solostar Pen) SEE PROTOCOL BID SC 11/24/16 09:00 12/24/16 08:59 11/24/16 08:09 16 UNITS Insulin Aspart (novoLOG ASPART) SLIDING SCALE TODAY@0200 ONCE SC 11/25/16 02:00 11/25/16 02:01 Insulin Aspart (novoLOG ASPART) SLIDING SCALE ACHS SC 11/24/16 21:00 12/24/16 20:59
[2016-11-24] MEDS: BENZONATATE 100MG CAP PO PRN (17:17)
[2016-11-24] MEDS: ATORVASTATIN 10 MG TAB PO SCH (19:28)
[2016-11-24] MEDS: MIRTAZAPINE TAB 15 MG TAB PO SCH (19:30)
[2016-11-25] VITALS (15 sets, daily range): BP systolic 116–164; BP diastolic 51–95; PULSE 66–117; TEMP 36.8–37.3; O2SAT 90–99
[2016-11-25] MEDS ORDERED: INSULIN ASPART 100 UNITS/ML 3 ML PEN SC ONE (02:00)
[2016-11-25] MEDS: LEVALBUTEROL 1.25MG/0.5ML NEB INH SCH ×2 (03:26→06:59)
[2016-11-25] MEDS: IPRATROPIUM BROMIDE NEB SOLN 0.02% 2.5 ML VIAL INH SCH ×6 (03:26→23:37)
[2016-11-25] MEDS: PIPERACILL/TAZOBAC IV 3.375 GM in DEXTROSE 5% 100ML IV SCH ×2 (05:15→16:55)
[2016-11-25 06:33] LABS: BUN/CREATININE RATIO 19.6 (10-20); CALCIUM 8.7 mg/dl (8.5-10.1); CREATININE 4.1 mg/dl (0.60-1.20); POTASSIUM 4.3 mmol/L (3.5-5.1)
[2016-11-25 06:45] LABS: HEMATOCRIT 27.5 % (37-47); MEAN CELL VOLUME 92.9 fL (80-100); MEAN CORPUSCULAR HEMOGLOBIN 30.1 pg (25-34); MEAN CORPUSCULAR HGB CONC 32.4 g/dl (32-36); MEAN PLATELET VOLUME 11.4 fL (7.4-10.4); PLATELET COUNT 90 K/uL (130-400); RED BLOOD COUNT 2.96 M/uL (4.2-5.4); WHITE BLOOD COUNT 16.88 K/uL (4.8-10.8)
[2016-11-25 06:46] LABS: ANISOCYTOSIS PRESENT; BASO % 0.1 %; BASO ABS # 0.01 K/uL (0-0.2); COMPLETE YES; EOS % 0.1 %; IG% 0.4 %; LYMPH % 6.4 %; LYMPH ABS # 1.08 K/uL (1.2-3.4); MONO % 8.1 %; NEUT % 84.9 %; PLT ESTIMATE DECREASED; TARGET CELLS 1+
[2016-11-25] MEDS: INSULIN ASPART 100 UNITS/ML 3 ML PEN SC SCH ×4 (07:54→20:14)
[2016-11-25] MEDS: LOPERAMIDE HCL 2 MG CAP PO PRN (07:59)
[2016-11-25] MEDS: BOOST GLUCOSE CONTROL PO SCH ×4 (07:59→20:05)
[2016-11-25] MEDS: DOCUSATE SODIUM 100 MG CAP PO SCH ×2 (08:00→20:07)
[2016-11-25] MEDS: PANTOprazole SOD 40 MG TAB PO SCH (08:00)
[2016-11-25] MEDS: POT PHOSPHATE MONOBASIC W/ SOD TAB PO SCH ×2 (08:00→20:09)
[2016-11-25] MEDS: INSULIN GLARGINE SOLOSTAR 100 UNITS/ML 3 ML PEN SC SCH ×2 (08:01→20:16)
--- NOTE | 2016-11-25 08:19 | Pharmacy Progress Note ---
Glycemic Control Progress Note Date of Service Nov 25, 2016. Scope Glycemic Pharmacist consulted for glycemic control to write orders per [facility] inpatient glycemic control protocol. Objective Accuchecks BSG (last 24hrs): Test 11/24/16 11:02 11/24/16 16:22 11/24/16 20:58 11/25/16 02:04 Bedside Glucose 242 mg/dl (70-90) 203 mg/dl (70-90) 211 mg/dl (70-90) 171 mg/dl (70-90) Test 11/25/16 05:34 11/25/16 06:49 Random Glucose 169 mg/dl (70-99) Bedside Glucose 179 mg/dl (70-90) HbA1c: Test 11/18/16 06:40 Hemoglobin A1c 6.8 % (4.5-5.6) H Recent Pertinent Medications The patient is currently receiving: * Basal insulin: Lantus SQ BID; 16 units in the AM and 10 units in the PM yesterday * Correctional Insulin: Novolog Correction per scale ACHS Goal Range: Low 110 mg/dL - High 140 mg/dL Correction Factor: 25 mg/dL/unit * Prandial insulin: Per carb ratio of 1 unit per 10 grams CHO consumed * Oral Agents: none currently Outpatient Anti-Diabetic Meds diet controlled Assessment & Plan ASSESSMENT: 11/24/16: * BSGs have ranged 163-228 over the last 24 hrs despite receiving 46 units of SQ insulin * Fasting BSG elevated this AM with 20 units of Lantus on board - will continue to titrate Lantus dose upward while on current Solu-medrol dose * BSGs did not climb significantly post-prandially after CF and CR were adjusted in the afternoon yesterday. Will continue the same CR for now however will increase the correctional insulin dose at this time due to basal insulin deficiency. This will provide more insulin until basal deficiency corrected. 11/25/16 * Yesterday Solu-medrol IV d/c'd in AM leading me to adjust insulin doses in anticipation of improved insulin sensitivity in diet controlled diabetic * BSGs have ranged 171-242 over the last 24 hours; the majority of BSGs greater than 200 * The effects of last dose of Solu-Medrol should be minimal at this time as last dose given > 36 hours ago * Fasting BSG slightly improved this AM however still not at goal, FBS 179 with 26 units of Lantus on board * Overnight BSG check 171 however correctional insulin not administered? * For a patient that appears well controlled with diet alone she is requiring a considerable amount of insulin at this time due to infection * Will continue moderate dose insulin SQ based upon anticipated total daily requirement of ~45 units (0.6units/kg/day) with current stressors. May need to titrate the doses upwards if BSGs not improving. It's still difficult to estimate needs due to influence on steroids on insulin resistance yesterday. PLAN FOR INPATIENT GLYCEMIC CONTROL: * Lantus SQ BID: 5 units if BSG less than 140, 10 units if BSG 140 or greater * Correction factor to 25 mg/dl/unit * Continuing carb ratio 1 unit per 10 grams CHO consumed * Continuing goal range Low 110 mg/dL - High 140 mg/dL RECOMMENDATIONS FOR DISCHARGE: * May resume dietary measures for control of diabetes on discharge unless patient still requiring insulin on day of discharge due to stress of infection * Please note that the plan above was derived based on current level of insulin resistance and hospital stress. These recommendations are appropriate for inpatient admission only. Plan of care upon discharge will need to be reassessed to avoid potential outpatient hypo/hyperglycemia. Thank you.
[2016-11-25] MEDS: ONDANSETRON 4 MG TAB PO PRN (09:36)
[2016-11-25] MEDS: CHOLESTYRAMINE LIGHT 4 GM PKT PO SCH ×2 (10:14→20:04)
[2016-11-25] MEDS ORDERED: OXYMETAZOLINE HCL 0.05% NA SPR 15 ML BTL PRN (11:00)
[2016-11-25] MEDS: LEVALBUTEROL 0.63MG/3 ML NEB INH SCH ×4 (11:15→23:37)
--- NOTE | 2016-11-25 11:39 | PULMONARY PROGRESS NOTE ---
DATE: 11/25/2016 TIME: 10:30 a.m. SUBJECTIVE: The patient feels like she had a bad night. She could not sleep. She states that she felt like her stomach contents were coming up as if she were refluxing. She did indicate that she had to drink some liquids late in the evening shortly before bed. This probably was her Questran and her Boost. Unfortunately, the Questran is for 10:00 p.m. The patient was very anxious during the night. Nursing states that when she realized her oxygen was off, she got more panicky. Her oxygen saturations did go down slightly into the upper 80s transiently. She has been sitting out of bed this morning. OBJECTIVE: GENERAL: The patient was comfortable but anxious. She appears relatively weak. ENT: Unchanged from prior. HEART: Current heart rate is 118 per minute. The rhythm is sinus tachycardia. Blood pressure is 164/81. LUNGS: Respiratory rate is 20. Her breath sounds are diminished at both bases. She has some dullness at both bases but especially on the right. Her oxygen saturation at present is 98% on 2 liters. EXTREMITIES: Reveal +2 edema bilaterally. There is no cyanosis or clubbing. Yesterday, her intake was 1190 and output was 750 for a net positive of 440. LABORATORY DATA: CBC today shows a white count elevated at 16.88. On 11/22/2016, it had been 13.94. Hemoglobin is 8.9. Platelets are 90,000. Electrolytes show sodium 143, potassium 4.3, chloride 106, bicarb 25. The BUN is 80 with a creatinine of 4.1. Yesterday, the BUN was 71 with a creatinine of 3.9. Back on 11/22/2016, her creatinine had been 3.3. AFB smear of pleural fluid was negative stain. IMPRESSIONS: 1. Transudative pleural effusion, likely secondary to underlying renal disease or liver disease. 2. Asthma by history. 3. Possible aspiration pneumonia left upper lobe as per CAT scan report. 4. Chronic kidney disease stage IV. 5. Large hiatal hernia. 6. Nonalcoholic steatohepatitis. 7. Splenomegaly. The patient remains marginal likely due to her severe chronic disease. Her kidney function continues to worsen. We will check an x-ray tomorrow to see if there has been any significant reaccumulation of pleural fluid. I believe she should be able to get in her late night medicines well before going to bed. Nursing staff will speak with the pharmacy and see if that is feasible. Some of the medicines need to be given in a spaced out fashion because they can interact with other drugs. Nonetheless, for a person with reflux and hiatal hernia, she should not be having a lot of liquids just at bedtime. I explained to the patient that if she is having reflux, she should tell the nurse and the head of her bed could be put higher which may help those symptoms. In light of the increased heart rate will decrease the dose of levalbuterol. Dr. Clark will be on pulmonary service as of tomorrow. PETRA
--- NOTE | 2016-11-25 12:25 | Progress Note ---
Medicine Progress Note Date & Time of Visit: Nov 25, 2016 at 12:21. Subjective seen sitting up in bedside chair had a "rough night"- was having reflux, some dyspnea, anxiety better this morning breathing is ok, intermittent cough no abdominal pain/distention no other symptoms Objective Last 8 Hrs Date Time Temp Pulse Resp B/P (MAP) Pulse Ox O2 Delivery O2 Flow Rate FiO2 11/25/16 11:41 36.8 113 22 125/51 (75) 96 Nasal Cannula 2.0 11/25/16 11:16 115 18 98 Nasal Cannula 2.0 11/25/16 08:00 Nasal Cannula 2.0 11/25/16 07:24 36.9 66 20 164/81 (108) 99 Mechanical Ventilator 11/25/16 07:21 37.1 116 20 153/69 (97) 91 Room Air 11/25/16 06:59 112 20 90 Room Air Physical Exam: General- oriented x 3, not in distress, speaks in sentences with no effort Neck- no JVD Lungs- mild rhonchi left base, mild decreased breath sounds on the right Heart- regular rhythm; no murmur, mild tachycardia Abdomen- normal bowel sounds, soft, nontender Extremities- grade 1 leg edema, no calf tenderness Neuro- alert, oriented x 3;no gross focal deficits Skin- warm & dry Laboratory Results: Last 24 Hours Test 11/24/16 16:22 11/24/16 20:58 11/25/16 02:04 11/25/16 05:34 Bedside Glucose 203 mg/dl 211 mg/dl 171 mg/dl White Blood Count 16.88 K/uL Red Blood Count 2.96 M/uL Hemoglobin 8.9 g/dL Hematocrit 27.5 % Mean Corpuscular Volume 92.9 fL Mean Corpuscular Hemoglobin 30.1 pg Mean Corpuscular Hemoglobin Concent 32.4 g/dl Platelet Count 90 K/uL Mean Platelet Volume 11.4 fL Neutrophils (%) (Auto) 84.9 % Lymphocytes (%) (Auto) 6.4 % Monocytes (%) (Auto) 8.1 % Eosinophils (%) (Auto) 0.1 % Basophils (%) (Auto) 0.1 % Neutrophils # (Auto) 14.34 K/uL Lymphocytes # (Auto) 1.08 K/uL Monocytes # (Auto) 1.37 K/uL Eosinophils # (Auto) 0.02 K/uL Basophils # (Auto) 0.01 K/uL RDW Standard Deviation 74.5 fL RDW Coefficient of Variation 22.7 % Immature Granulocyte % (Auto) 0.4 % Immature Granulocyte # (Auto) 0.06 K/uL Platelet Estimate DECREASED Anisocytosis PRESENT Target Cells 1+ Sodium Level 143 mmol/L Potassium Level 4.3 mmol/L Chloride Level 106 mmol/L Carbon Dioxide Level 25 mmol/L Anion Gap 12.0 mmol/L Blood Urea Nitrogen 80 mg/dl Creatinine 4.10 mg/dl Est Creatinine Clear Calc Drug Dose 11.6 ml/min Estimated GFR () 11.5 Estimated GFR (Non- 9.9 BUN/Creatinine Ratio 19.6 Random Glucose 169 mg/dl Calcium Level 8.7 mg/dl Test 11/25/16 06:49 11/25/16 11:12 Bedside Glucose 179 mg/dl 231 mg/dl Assessment & Plan This is a 76 year old female with a PMH of CKD stage IV, DM2, HTN, HLD, GERD, hiatal hernia, MORRISON cirrhosis presented with a fall and found to have elevated troponin and creatinine levels ACUTE HYPOXIC RESPIRATORY FAILURE SECONDARY TO RIGHT PLEURAL EFFUSION POSSIBLE ASPIRATION PULMONARY EDEMA -- s/p Thoracentesis 11/23/[address] Phoenix drained 800cc PF studies ordered -- on Zosyn IV Day 09/19 Speech Therapy Eval: Dental soft, slippery diet given Solumedrol 40mg IV bid Pharm Glycemic Control consult placed -- on Lasix 40mg IV + albumin: held for increasing crea will discuss with Nephro -- improving appreciate Nephro and Pulm SVC input ACUTE RENAL FAILURE ON Chronic Kidney Disease stage IV creatinine on admission 2.5 Creatine on 11/01/16 was 1.7 Nephrology on board -- crea 3.9 on Lasix 40mg IV + albumin BID hold lasix for now as crea is rising, will discuss with Nephro MORRISON cirrhosis -- with some pleural effusion, likely hepatic hydrothorax -- GI reconsulted Liver US to quantify ascites: minimal -- no plans for paracentesis Elevated Troponin Level Possible related to recent fall and elevated creatine no chest pain, no EKG changes, no significant findings on echo Mechanical Fall in the setting of Orthostatic Hypotension Norvasc was discontinued Midodrine was discontinued due to elevated BP Continue PT/OT -- accepted to SNF Hypotension BP has been stable Midodrine was discontinued Thrombocytopenia Related to MORRISON ascites Platelet 92 No sign of bleeding HIT score 2 Depression/Anxiety Prozac was discontinued Continue Remeron stable Hiatal Hernia/GERD nonsurgical continue PPI finishing supervisor consulted Boost BID added as per finishing supervisor DM2 diet-controlled last Ha1c ~ 6.4% on 09/29 DVT ppx SCDs ambulation due to low plt, no anticoagulation CODE STATUS FULL CODE DISPOSITION pending needs to be transitioned to SNF Consultants: Nephrology Consultants: Nephrology Current Inpatient Medications: Current Inpatient Medications Medications (Trade) Dose Ordered Sig/Edilson Route Start Time Stop Time Status Last Admin Dose Admin Albuterol (Ventolin Hfa Inhaler) 2 puffs Q4 PRN INH 11/12/16 22:00 12/12/16 21:59 Atorvastatin Calcium (Lipitor Tab) 10 mg HS PO 11/13/16 21:00 12/13/16 20:59 11/24/16 19:28 10 MG Cholestyramine Resin (Questran Powder Light) 4 gm BID@ PO 11/12/16 22:00 12/12/16 21:59 11/25/16 10:14 4 GM Ondansetron HCl (Zofran Tab) 4 mg Q6H PRN PO 11/12/16 22:00 12/12/16 21:59 11/25/16 09:36 4 MG Pantoprazole Sodium (Protonix Tab) 40 mg DAILY PO 11/13/16 09:00 12/13/16 08:59 11/25/16 08:00 40 MG Buspirone HCl (Buspar Tab) 10 mg TID PO 11/13/16 09:00 12/13/16 08:59 11/25/16 07:59 10 MG Loperamide HCl (Imodium Cap) 2 mg Q12H PRN PO 11/12/16 22:00 12/12/16 21:59 11/25/16 07:59 2 MG Potassium/ Phosphorus/Sodium (Phospha 250 Neutral 155-852-130 Mg) 1 tab BID PO 11/13/16 09:00 12/13/16 08:59 11/25/16 08:00 1 TAB Mirtazapine (Remeron Tab) 15 mg HS PO 11/13/16 21:00 12/13/16 20:59 11/24/16 19:30 15 MG Glucose (Glucose 40% Gel) 15-30 GRAMS 15 GRAMS... UD PRN PO 11/17/16 12:45 12/17/16 12:44 Glucose (Glucose Chew Tab) 4-8 Tablets 4 Tabl... UD PRN PO 11/17/16 12:45 12/17/16 12:44 Dextrose (Dextrose 50% 50ML Syringe) 25-50ML OF 50% DW IV FOR... UD PRN IV 11/17/16 12:45 12/17/16 12:44 Glucagon (Glucagon Inj) 1 mg UD PRN SQ 11/17/16 12:45 12/17/16 12:44 Polyethylene (Miralax Powder Packet) 17 gm DAILY PRN PO 11/17/16 12:45 12/17/16 12:44 Docusate Sodium (coLACE CAP) 100 mg BID PO 11/17/16 21:00 12/17/16 20:59 11/25/16 08:00 100 MG Piperacillin Sod/ Tazobactam Sod (Consult) 1 ea UD PRN N/A 11/20/16 19:45 12/20/16 19:44 Piperacillin Sod/ Tazobactam Sod 3.375 gm/Dextrose 115 ml @ 28.75 mls/ hr Q12H IV 11/21/16 06:00 11/28/16 05:59 11/25/16 05:15 28.75 MLS/HR Al Hydroxide/Mg Hydroxide (Maalox Susp) 15 ml Q4H PRN PO 11/21/16 21:45 12/21/16 21:44 11/21/16 21:56 15 ML Ipratropium [place] (Atrovent 0.02% 0.5MG/2.5ML Neb) 0.5 mg Q4R INH 11/22/16 12:00 12/22/16 11:59 11/25/16 11:15 0.5 MG Miscellaneous Information (Consult Glycemic Management Pharmacy) 1 ea UD PRN N/A 11/23/16 09:47 12/23/16 09:46 Enteral Nutritional Formula (Boost Glucose Control) 0.5 can ACHS PO 11/23/16 11:00 12/23/16 10:59 11/25/16 07:59 0.5 CAN Insulin Glargine (Lantus Solostar Pen) SEE PROTOCOL BID SC 11/24/16 09:00 12/24/16 08:59 11/25/16 08:01 10 UNITS Insulin Aspart (novoLOG ASPART) SLIDING SCALE ACHS SC 11/24/16 21:00 12/24/16 20:59 11/25/16 07:54 5 UNITS Benzonatate (Tessalon Perles Cap) 100 mg TID PRN PO 11/24/16 15:00 12/24/16 14:59 11/24/16 17:17 100 MG Levalbuterol (Xopenex 0.63 Mg/ 3 Ml Neb) 0.63 mg Q4R INH 11/25/16 12:00 12/22/16 11:59 11/25/16 11:15 0.63 MG Oxymetazoline HCl (Afrin 0.05% Nasal [place]) 1 sprays Q6H PRN NA 11/25/16 11:00 12/25/16 10:59
--- NOTE | 2016-11-25 13:49 | PROGRESS NOTE ---
DATE: 11/25/2016 SUBJECTIVE: The patient is a 76-year-old female admitted with acute kidney injury secondary to ATN with underlying CKD as well as liver disease. She also had aspiration as well as pneumonia. She continues to decline. She is complaining of significant shortness of breath as well as orthopnea. She does have bilateral lower extremity edema which seems to be getting worse as well as ascites. Her renal function is getting worse despite cut down of the Lasix. OBJECTIVE: VITAL SIGNS: Blood pressure is 125/51, 96% on 2 liter nasal cannula, pulse rate 113 per minute, temperature 36.8 degrees Celsius. GENERAL: Elderly white female who appears chronically ill. She is in respiratory distress. NECK: Supple. Jugular venous distention cannot be tested. LUNGS: Bilateral very decreased breath sounds with crackles as well as wheezing. CARDIOVASCULAR: Tachycardic, soft systolic murmur heard. ABDOMEN: Soft, ascites plus. EXTREMITIES: 2-3+ bilateral pitting edema. LABORATORY TESTS: Renal function continues to get worse this morning. Sodium is 143, potassium 4.3, BUN is up to 80, creatinine is 4.1. Hemoglobin is 8.9, WBC count is also going up, it is up to 16.88. Urinalysis done at the time of admission is consistent with ATN with granular cast, high urine sodium of 94, negative blood, negative protein. It was dark yellow and cloudy in nature. ASSESSMENT AND PLAN: A 76-year-old female who currently has acute kidney injury. This is secondary to acute tubular necrosis. Her urine sodium of 94, the rising creatinine, decreasing urine output is all consistent with an acute tubular necrosis like picture in the setting of pneumonia. She is clearly fluid overloaded and is symptomatic from this. I am more worried about her decompensating and having severe pulmonary edema. She needs IV Lasix and a lot of it. I would write 80 mg IV Lasix now as well as q.12 hour. She needs to have significant diuresis. It is quite possible that she may need dialysis, but regardless of the creatinine she needs diuresis for the time being. I did explain to her that if the creatinine continues to get worse, we do have to have a discussion about dialysis. She did not say anything. ZUCKER HILLSIDE HOSPITALNeri
[2016-11-25] MEDS: ALBUMIN 25% 50 ML with FUROSEMIDE INJ 80 MG IV SCH ×4 (14:05→21:58)
--- NOTE | 2016-11-25 15:42 | DIAGNOSTIC IMAGING REPORT ---
ABDOMINAL ULTRASOUND TO ASSESS ASCITES CLINICAL HISTORY: Quantify ascites. COMPARISON STUDY: Ascites ultrasound November 20, 2016. FINDINGS: There has been mild increase in a small to moderate amount of ascites since exam of November 20, 2016. Bilateral pleural effusions are incidentally noted. IMPRESSION: 1. Small to moderate ascites, increased since exam of November 20, 2016. 2. Bilateral pleural effusions, right larger than left. Electronically signed by: Gabriel Vieyra M.D. 11/25/2016 3:41 PM Dictated Date/Time: 11/25/2016 3:38 PM
[2016-11-25] MEDS: ATORVASTATIN 10 MG TAB PO SCH (20:08)
[2016-11-25] MEDS: MIRTAZAPINE TAB 15 MG TAB PO SCH (20:10)
[2016-11-26] VITALS (13 sets, daily range): BP systolic 114–143; BP diastolic 52–86; PULSE 102–116; TEMP 36.7–37.1; O2SAT 91–100; Ht 162.6 cm; Wt 65.0 kg
[2016-11-26] MEDS: IPRATROPIUM BROMIDE NEB SOLN 0.02% 2.5 ML VIAL INH SCH ×5 (03:19→19:50)
[2016-11-26] MEDS: LEVALBUTEROL 0.63MG/3 ML NEB INH SCH ×5 (03:19→19:51)
[2016-11-26] MEDS: PIPERACILL/TAZOBAC IV 3.375 GM in DEXTROSE 5% 100ML IV SCH ×2 (05:43→17:59)
[2016-11-26 05:46] LABS: HEMATOCRIT 23.6 % (37-47); MEAN CELL VOLUME 92.5 fL (80-100); MEAN CORPUSCULAR HEMOGLOBIN 30.6 pg (25-34); MEAN CORPUSCULAR HGB CONC 33.1 g/dl (32-36); MEAN PLATELET VOLUME 11.2 fL (7.4-10.4); PLATELET COUNT 82 K/uL (130-400); RED BLOOD COUNT 2.55 M/uL (4.2-5.4); WHITE BLOOD COUNT 16.04 K/uL (4.8-10.8)
[2016-11-26 06:04] LABS: ANISOCYTOSIS PRESENT; COMPLETE YES; EOS % 0.2 %; IG% 0.3 %; LYMPH % 9.4 %; LYMPH ABS # 1.51 K/uL (1.2-3.4); MONO % 7.1 %; TARGET CELLS 1+
[2016-11-26 06:41] LABS: BUN/CREATININE RATIO 20.5 (10-20); CALCIUM 8.5 mg/dl (8.5-10.1); CREATININE 4.6 mg/dl (0.60-1.20); POTASSIUM 4.3 mmol/L (3.5-5.1)
[2016-11-26] MEDS: BOOST GLUCOSE CONTROL PO SCH ×4 (07:00→19:40)
--- NOTE | 2016-11-26 07:17 | DIAGNOSTIC IMAGING REPORT ---
CHEST ONE VIEW PORTABLE CLINICAL HISTORY: f/u on effusions and CALIN infiltrate dyspnea COMPARISON STUDY: 11/22/2016 FINDINGS: Mild improvement of aeration the hemithoraces bilaterally. Persistent consolidative/atelectatic changes left base. Improved perihilar infiltrates. Chronic elevation left hemidiaphragm. Trace pleural fluid right base improved. IMPRESSION: Improved exam. Mild residual bibasilar consolidative/effusion-type change. The above report was generated using voice recognition software. It may contain grammatical, syntax or spelling errors. Electronically signed by: Bud Short M.D. 11/26/2016 7:15 AM Dictated Date/Time: 11/26/2016 7:14 AM
[2016-11-26] MEDS: PANTOprazole SOD 40 MG TAB PO SCH (08:56)
[2016-11-26] MEDS: POT PHOSPHATE MONOBASIC W/ SOD TAB PO SCH ×2 (08:56→21:02)
[2016-11-26] MEDS: ALBUMIN 25% 50 ML with FUROSEMIDE INJ 80 MG IV SCH ×4 (08:57→21:03)
[2016-11-26] MEDS: INSULIN ASPART 100 UNITS/ML 3 ML PEN SC SCH ×4 (09:00→21:05)
[2016-11-26] MEDS: DOCUSATE SODIUM 100 MG CAP PO SCH ×2 (09:00→21:02)
[2016-11-26] MEDS: INSULIN GLARGINE SOLOSTAR 100 UNITS/ML 3 ML PEN SC SCH ×2 (09:01→21:05)
--- NOTE | 2016-11-26 09:58 | Pulmonology Progress Note ---
Pulmonary Progress Note Date of Service Nov 26, 2016. Attending Dr. Clark Subjective Patient seen and examined at bedside. She states that she is feeling ok. She slept well last night. She still complains of dry cough, however denies any fever, chills, chest pain or palpitations. Objective VS reviewed. She is saturating 95% on 2L NC at the time of my examination. O/E: Gen: AAOx3, NAD, speaking in full sentences. No acute respiratory distress. No use of accessory muscles of respiration. HEENT: AT/NC, PERRL, EOMI, ears--hearing normal, nose-normal nasal turbinates; there is a nasal canula in place, throat--no tonsillar exudates CVS: S1, S2, RRR Lungs: expiratory wheezes bilaterally, with prolonged expiratory phase, coughing intermittently during exam Abd: distended, nontender, BS+ Ext: pitting edema up to knees bilaterally about +3, no cyanosis or clubbing noted Clark catheter in place Labs reviewed Creatinine 4.6, WBC 16, Hgb 7.8, Platelets 82 CXR 11/26/2016--FINDINGS: Mild improvement of aeration the hemithoraces bilaterally. Persistent consolidative/atelectatic changes left base. Improved perihilar infiltrates. Chronic elevation left hemidiaphragm. Trace pleural fluid right base improved. IMPRESSION: Improved exam. Mild residual bibasilar consolidative/effusion-type change. Abdominal U/S 11/26/2016 IMPRESSION: 1. Small to moderate ascites, increased since exam of November 20, 2016. 2. Bilateral pleural effusions, right larger than left. CT Chest 11/20/2016 IMPRESSION: 1. Moderate right pleural effusion and small left pleural effusion with basilar atelectasis 2. Groundglass left upper lobe opacities, suspicious for a pneumonitis. Clinical and imaging follow-up is recommended 3. Large hiatal hernia 4. Ascites. Splenomegaly Medications from a respiratory standpoint include: Xopenex, Atrovent, Tessalon Perles, Zosyn 3.375 mg and Lasix 80 mg BID. 1.5 cm nodule in RUL, will need follow up CT imaging in 6 weeks to evaluate for interval resolution. Assessment & Plan 1. Transudative pleural effusion, likely secondary to underlying renal disease or liver disease. 2. Asthma by history. 3. Possible aspiration pneumonia left upper lobe, CAT scan report. 4. RUL 1.5 cm ground glass nodule 5. Chronic kidney disease stage IV. 6. Large hiatal hernia. 7. Nonalcoholic steatohepatitis. 8. Splenomegaly. Ms. Ng appears to be improving from a respiratory standpoint. She continues to have expiratory wheezing today. Despite this her oxygen requirements are minimal. Continue to keep her SaO2>92%. I will order and encourage flutter valve. Her CXR today shows interval improvement of right pleural effusion. Pathology is still pending. Cultures are negative thus far. AFB is still pending. Pleural effusions are likely from underlying kidney and liver disease. I would continue with albuterol and xopenex for bronchodilatory agents. Yesterday, dose of xopenex was decreased due to persistent tachycardia. CTA is negative for PE. Continue with Zosyn for aspiration pneumonia to complete total of 7 days. I would recommend interval follow up of CT as an outpatient to evaluate for resolution in a 6 weeks. Patient appears fluid overloaded, non responsive to diuretics with rising creatinine. Nephrology service is on board and following. In regards to [facility], she is known to GI and they are following. Data Medications: Current Inpatient Medications Medications (Trade) Dose Ordered Sig/Edilson Route Start Time Stop Time Status Last Admin Dose Admin Albuterol (Ventolin Hfa Inhaler) 2 puffs Q4 PRN INH 11/12/16 22:00 12/12/16 21:59 Atorvastatin Calcium (Lipitor Tab) 10 mg HS PO 11/13/16 21:00 12/13/16 20:59 11/25/16 20:08 10 MG Cholestyramine Resin (Questran Powder Light) 4 gm BID@, PO 11/12/16 22:00 12/12/16 21:59 11/25/16 10:14 4 GM Ondansetron HCl (Zofran Tab) 4 mg Q6H PRN PO 11/12/16 22:00 12/12/16 21:59 11/25/16 09:36 4 MG Pantoprazole Sodium (Protonix Tab) 40 mg DAILY PO 11/13/16 09:00 12/13/16 08:59 11/26/16 08:56 40 MG Buspirone HCl (Buspar Tab) 10 mg TID PO 11/13/16 09:00 12/13/16 08:59 11/26/16 08:56 10 MG Loperamide HCl (Imodium Cap) 2 mg Q12H PRN PO 11/12/16 22:00 12/12/16 21:59 11/25/16 07:59 2 MG Potassium/ Phosphorus/Sodium (Phospha 250 Neutral 155-852-130 Mg) 1 tab BID PO 11/13/16 09:00 12/13/16 08:59 11/26/16 08:56 1 TAB Mirtazapine (Remeron Tab) 15 mg HS PO 11/13/16 21:00 12/13/16 20:59 11/25/16 20:10 15 MG Glucose (Glucose 40% Gel) 15-30 GRAMS 15 GRAMS... UD PRN PO 11/17/16 12:45 12/17/16 12:44 Glucose (Glucose Chew Tab) 4-8 Tablets 4 Tabl... UD PRN PO 11/17/16 12:45 12/17/16 12:44 Dextrose (Dextrose 50% 50ML Syringe) 25-50ML OF 50% DW IV FOR... UD PRN IV 11/17/16 12:45 12/17/16 12:44 Glucagon (Glucagon Inj) 1 mg UD PRN SQ 11/17/16 12:45 12/17/16 12:44 Polyethylene (Miralax Powder Packet) 17 gm DAILY PRN PO 11/17/16 12:45 12/17/16 12:44 Docusate Sodium (coLACE CAP) 100 mg BID PO 11/17/16 21:00 12/17/16 20:59 11/25/16 20:07 100 MG Piperacillin Sod/ Tazobactam Sod (Consult) 1 ea UD PRN N/A 11/20/16 19:45 12/20/16 19:44 Piperacillin Sod/ Tazobactam Sod 3.375 gm/Dextrose 115 ml @ 28.75 mls/ hr Q12H IV 11/21/16 06:00 11/27/16 05:59 11/26/16 05:43 28.75 MLS/HR Al Hydroxide/Mg Hydroxide (Maalox Susp) 15 ml Q4H PRN PO 11/21/16 21:45 12/21/16 21:44 11/21/16 21:56 15 ML Ipratropium [place] (Atrovent 0.02% 0.5MG/2.5ML Neb) 0.5 mg Q4R INH 11/22/16 12:00 12/22/16 11:59 11/26/16 07:19 0.5 MG Miscellaneous Information (Consult Glycemic Management Pharmacy) 1 ea UD PRN N/A 11/23/16 09:47 12/23/16 09:46 Enteral Nutritional Formula (Boost Glucose Control) 0.5 can ACHS PO 11/23/16 11:00 12/23/16 10:59 11/26/16 07:00 0.5 CAN Insulin Glargine (Lantus Solostar Pen) SEE PROTOCOL BID SC 11/24/16 09:00 12/24/16 08:59 11/26/16 09:01 12 UNITS Insulin Aspart (novoLOG ASPART) SLIDING SCALE ACHS SC 11/24/16 21:00 12/24/16 20:59 11/26/16 09:00 8 UNITS Benzonatate (Tessalon Perles Cap) 100 mg TID PRN PO 11/24/16 15:00 12/24/16 14:59 11/24/16 17:17 100 MG Levalbuterol (Xopenex 0.63 Mg/ 3 Ml Neb) 0.63 mg Q4R INH 11/25/16 12:00 12/22/16 11:59 11/26/16 07:19 0.63 MG Oxymetazoline HCl (Afrin 0.05% Nasal [place]) 1 sprays Q6H PRN NA 11/25/16 11:00 12/25/16 10:59 Furosemide 80 mg/ Albumin Human 58 ml @ 54 mls/hr BID IV 11/25/16 13:30 11/28/16 13:29 11/26/16 08:57 54 MLS/HR Vital Signs: Date Time Temp Pulse Resp B/P (MAP) Pulse Ox O2 Delivery O2 Flow Rate FiO2 11/26/16 08:46 37.0 108 20 131/86 (101) 96 Nasal Cannula 2.0 11/26/16 07:30 Room Air 2.0 11/26/16 07:22 106 16 91 Room Air 11/26/16 04:05 97 Room Air 11/26/16 04:00 37.0 107 19 114/57 (76) 91 Nasal Cannula 2.0 11/26/16 03:19 107 16 91 Nasal Cannula 2.0 11/26/16 00:07 97 Room Air 11/26/16 00:00 37.1 116 20 137/52 (80) 94 Nasal Cannula 2.0 11/25/16 23:40 114 16 94 Nasal Cannula 2.0 11/25/16 20:00 97 Room Air 11/25/16 19:17 37.3 94 22 141/52 (81) 97 Nasal Cannula 2.0 11/25/16 19:03 115 16 97 Nasal Cannula 2.0 11/25/16 16:00 Nasal Cannula 2.0 11/25/16 15:23 117 16 96 Nasal Cannula 2.0 11/25/16 15:20 36.9 114 12 133/60 (84) 95 Nasal Cannula 2.0 11/25/16 12:00 Nasal Cannula 2.0 11/25/16 11:41 36.8 113 22 125/51 (75) 96 Nasal Cannula 2.0 11/25/16 11:16 115 18 98 Nasal Cannula 2.0 Laboratory Results: Last 24 Hours Test 11/25/16 11:12 11/25/16 15:50 11/25/16 20:04 11/26/16 05:29 Bedside Glucose 231 mg/dl 189 mg/dl 177 mg/dl White Blood Count 16.04 K/uL Red Blood Count 2.55 M/uL Hemoglobin 7.8 g/dL Hematocrit 23.6 % Mean Corpuscular Volume 92.5 fL Mean Corpuscular Hemoglobin 30.6 pg Mean Corpuscular Hemoglobin Concent 33.1 g/dl Platelet Count 82 K/uL Mean Platelet Volume 11.2 fL Neutrophils (%) (Auto) 83.0 % Lymphocytes (%) (Auto) 9.4 % Monocytes (%) (Auto) 7.1 % Eosinophils (%) (Auto) 0.2 % Basophils (%) (Auto) 0.0 % Neutrophils # (Auto) 13.30 K/uL Lymphocytes # (Auto) 1.51 K/uL Monocytes # (Auto) 1.14 K/uL Eosinophils # (Auto) 0.04 K/uL Basophils # (Auto) 0.00 K/uL RDW Standard Deviation 75.0 fL RDW Coefficient of Variation 22.6 % Immature Granulocyte % (Auto) 0.3 % Immature Granulocyte # (Auto) 0.05 K/uL Anisocytosis PRESENT Target Cells 1+ Sodium Level 142 mmol/L Potassium Level 4.3 mmol/L Chloride Level 105 mmol/L Carbon Dioxide Level 26 mmol/L Anion Gap 11.0 mmol/L Blood Urea Nitrogen 94 mg/dl Creatinine 4.60 mg/dl Est Creatinine Clear Calc Drug Dose 10.4 ml/min Estimated GFR () 10.0 Estimated GFR (Non- 8.6 BUN/Creatinine Ratio 20.5 Random Glucose 185 mg/dl Calcium Level 8.5 mg/dl Test 11/26/16 06:49 Bedside Glucose 370 mg/dl
[2016-11-26] MEDS: CHOLESTYRAMINE LIGHT 4 GM PKT PO SCH ×2 (10:00→21:03)
--- NOTE | 2016-11-26 11:43 | Pharmacy Progress Note ---
Glycemic Control Progress Note Date of Service Nov 26, 2016. Scope Glycemic Pharmacist consulted for glycemic control to write orders per [facility] inpatient glycemic control protocol. Objective Accuchecks BSG (last 24hrs): Test 11/25/16 15:50 11/25/16 20:04 11/26/16 05:29 11/26/16 06:49 Bedside Glucose 189 mg/dl (70-90) 177 mg/dl (70-90) 370 mg/dl (70-90) Random Glucose 185 mg/dl (70-99) HbA1c: Test 11/18/16 06:40 Hemoglobin A1c 6.8 % (4.5-5.6) H Recent Pertinent Medications The patient is currently receiving: * Basal insulin: Lantus 10 units SQ BID * Correctional Insulin: Novolog Correction per scale ACHS Goal Range: Low 110 mg/dL - High 140 mg/dL Correction Factor: 25 mg/dL/unit * Prandial insulin: Per carb ratio of 1 unit per 8 grams CHO consumed * Oral Agents: none currently Outpatient Anti-Diabetic Meds diet controlled Assessment & Plan ASSESSMENT: 11/25/16 * Yesterday Solu-medrol IV d/c'd in AM leading me to adjust insulin doses in anticipation of improved insulin sensitivity in diet controlled diabetic * BSGs have ranged 171-242 over the last 24 hours; the majority of BSGs greater than 200 * The effects of last dose of Solu-Medrol should be minimal at this time as last dose given > 36 hours ago * Fasting BSG slightly improved this AM however still not at goal, FBS 179 with 26 units of Lantus on board * Overnight BSG check 171 however correctional insulin not administered? * For a patient that appears well controlled with diet alone she is requiring a considerable amount of insulin at this time due to infection * Will continue moderate dose insulin SQ based upon anticipated total daily requirement of ~45 units (0.6units/kg/day) with current stressors. May need to titrate the doses upwards if BSGs not improving. It's still difficult to estimate needs due to influence on steroids on insulin resistance yesterday. 11/26/16 * Similar to yesterday, for a patient that appears well controlled with diet alone she is requiring a considerable amount of insulin at this time due to physiologic stress. Steroid effects from 11/23 are not likely contributing at this time. * Recent hyperglycemia likely multifactorial * Significant physiologic stress * CHO in Boost not covered at HS yesterday * POC BSG's today at breakfast and lunch were both post-prandial Breakfast: POC BSG 370 mg/dL this AM, but patient was actively eating at the time per RN. Random BSG drawn in fasting state and was 185 mg /dL Lunch: patient was eating a popcicle @ 1100 per special educator (Melania), POC BSG @ 1145 * Fasting BSG of 185 mg/dL elevated. OK to increase Lantus by 20% * Difficult to determine if Novolog needs to be adjusted as both BSG's today are post-prandial. Will continue for now, but add overnight check. PLAN FOR INPATIENT GLYCEMIC CONTROL: * Increase Lantus SQ 12 units BID (6 units if BSG less than 120 mg/dL) * Continue correction factor of 25 mg/dl/unit * Continue carb ratio of 1 unit per 8 grams CHO consumed * Continue goal range Low 110 mg/dL - High 140 mg/dL * Add overnight Novolog check x1 * Please note that the plan above was derived based on current level of insulin resistance and hospital stress. These recommendations are appropriate for inpatient admission only. Plan of care upon discharge will need to be reassessed to avoid potential outpatient hypo/hyperglycemia. Thank you.
--- NOTE | 2016-11-26 13:54 | DIAGNOSTIC IMAGING REPORT ---
VENOUS DOPPLER LW EXT BILAT HISTORY: Pain. Edema. r/o DVT COMPARISON STUDY: None. FINDINGS: There is normal compressibility, flow, and augmentation within the bilateral lower extremity deep venous systems. IMPRESSION: No DVT within the right or left lower extremity. The above report was generated using voice recognition software. It may contain grammatical, syntax or spelling errors. Electronically signed by: Bud Short M.D. 11/26/2016 1:53 PM Dictated Date/Time: 11/26/2016 1:52 PM
--- NOTE | 2016-11-26 15:58 | Nephrology Progress Note ---
Nephrology Progress Note Date of Service: Nov 26, 2016. Subjective 76 yo female with arturo in setting of cirrhosis with aspiration pneumonia and urinating less. creatinine continues to worsen. pt is agreeable to temporary dialysis if needed. pts breathing is ok today in her opinion and appetite is ok as well. Objective Date Time Temp Pulse Resp B/P (MAP) Pulse Ox O2 Delivery O2 Flow Rate FiO2 11/26/16 15:27 36.9 110 20 140/63 (88) 100 Oxymask 7.0 11/26/16 15:16 104 16 94 Nasal Cannula 2.0 11/26/16 15:15 Room Air 11/26/16 11:45 36.7 111 20 143/61 (88) 97 Nasal Cannula 1.0 11/26/16 11:16 Room Air 11/26/16 11:10 111 16 97 Nasal Cannula 2.0 11/26/16 08:46 37.0 108 20 131/86 (101) 96 Nasal Cannula 2.0 11/26/16 07:30 Room Air 2.0 11/26/16 07:22 106 16 91 Room Air 11/26/16 04:05 97 Room Air 11/26/16 04:00 37.0 107 19 114/57 (76) 91 Nasal Cannula 2.0 11/26/16 03:19 107 16 91 Nasal Cannula 2.0 11/26/16 00:07 97 Room Air 11/26/16 00:00 37.1 116 20 137/52 (80) 94 Nasal Cannula 2.0 11/25/16 23:40 114 16 94 Nasal Cannula 2.0 11/25/16 20:00 97 Room Air 11/25/16 19:17 37.3 94 22 141/52 (81) 97 Nasal Cannula 2.0 11/25/16 19:03 115 16 97 Nasal Cannula 2.0 11/25/16 16:00 Nasal Cannula 2.0 Physical Exam: General-aaox3 Eyes-no scleral icterus ENT-mmm Neck-supple Lungs-diffuse wheezing/tight Heart-tachycardia Abdomen-bs+ s/+distention Extremities-+2 edema-pitting Neuro-nonfocal Current Inpatient Medications Medications (Trade) Dose Ordered Sig/Edilson Route Start Time Stop Time Status Last Admin Dose Admin Albuterol (Ventolin Hfa Inhaler) 2 puffs Q4 PRN INH 11/12/16 22:00 12/12/16 21:59 Atorvastatin Calcium (Lipitor Tab) 10 mg HS PO 11/13/16 21:00 12/13/16 20:59 11/25/16 20:08 10 MG Cholestyramine Resin (Questran Powder Light) 4 gm BID@10,22 PO 11/12/16 22:00 12/12/16 21:59 11/25/16 10:14 4 GM Ondansetron HCl (Zofran Tab) 4 mg Q6H PRN PO 11/12/16 22:00 12/12/16 21:59 11/25/16 09:36 4 MG Pantoprazole Sodium (Protonix Tab) 40 mg DAILY PO 11/13/16 09:00 12/13/16 08:59 11/26/16 08:56 40 MG Buspirone HCl (Buspar Tab) 10 mg TID PO 11/13/16 09:00 12/13/16 08:59 11/26/16 08:56 10 MG Loperamide HCl (Imodium Cap) 2 mg Q12H PRN PO 11/12/16 22:00 12/12/16 21:59 11/25/16 07:59 2 MG Potassium/ Phosphorus/Sodium (Phospha 250 Neutral 155-852-130 Mg) 1 tab BID PO 11/13/16 09:00 12/13/16 08:59 11/26/16 08:56 1 TAB Mirtazapine (Remeron Tab) 15 mg HS PO 11/13/16 21:00 12/13/16 20:59 11/25/16 20:10 15 MG Glucose (Glucose 40% Gel) 15-30 GRAMS 15 GRAMS... UD PRN PO 11/17/16 12:45 12/17/16 12:44 Glucose (Glucose Chew Tab) 4-8 Tablets 4 Tabl... UD PRN PO 11/17/16 12:45 12/17/16 12:44 Dextrose (Dextrose 50% 50ML Syringe) 25-50ML OF 50% DW IV FOR... UD PRN IV 11/17/16 12:45 12/17/16 12:44 Glucagon (Glucagon Inj) 1 mg UD PRN SQ 11/17/16 12:45 12/17/16 12:44 Polyethylene (Miralax Powder Packet) 17 gm DAILY PRN PO 11/17/16 12:45 12/17/16 12:44 Docusate Sodium (coLACE CAP) 100 mg BID PO 11/17/16 21:00 12/17/16 20:59 11/25/16 20:07 100 MG Piperacillin Sod/ Tazobactam Sod (Consult) 1 [facility] PRN N/A 11/20/16 19:45 12/20/16 19:44 Piperacillin Sod/ Tazobactam Sod 3.375 gm/Dextrose 115 ml @ 28.75 mls/ hr Q12H IV 11/21/16 06:00 11/27/16 05:59 11/26/16 05:43 28.75 MLS/HR Al Hydroxide/Mg Hydroxide (Maalox Susp) 15 ml Q4H PRN PO 11/21/16 21:45 12/21/16 21:44 11/21/16 21:56 15 ML Ipratropium [place] (Atrovent 0.02% 0.5MG/2.5ML Neb) 0.5 mg Q4R INH 11/22/16 12:00 12/22/16 11:59 11/26/16 15:14 0.5 MG Miscellaneous Information (Consult Glycemic Management Pharmacy) 1 [facility] PRN N/A 11/23/16 09:47 12/23/16 09:46 Enteral Nutritional Formula (Boost Glucose Control) 0.5 can ACHS PO 11/23/16 11:00 12/23/16 10:59 11/26/16 11:00 0.5 CAN Insulin Glargine (Lantus Solostar Pen) SEE PROTOCOL BID SC 11/24/16 09:00 12/24/16 08:59 11/26/16 09:01 12 UNITS Insulin Aspart (novoLOG ASPART) SLIDING SCALE ACHS SC 11/24/16 21:00 12/24/16 20:59 11/26/16 11:00 9 UNITS Benzonatate (Tessalon Perles Cap) 100 mg TID PRN PO 11/24/16 15:00 12/24/16 14:59 11/24/16 17:17 100 MG Levalbuterol (Xopenex 0.63 Mg/ 3 Ml Neb) 0.63 mg Q4R INH 11/25/16 12:00 9/9/17 11:59 11/26/16 15:14 0.63 MG Oxymetazoline HCl (Afrin 0.05% Nasal [place]) 1 sprays Q6H PRN NA 11/25/16 11:00 12/25/16 10:59 Furosemide 80 mg/ Albumin Human 58 ml @ 54 mls/hr BID IV 11/25/16 13:30 11/28/16 13:29 11/26/16 08:57 54 MLS/HR Insulin Aspart (novoLOG ASPART) SLIDING SCALE TODAY@0200 ONCE SC 11/27/16 02:00 11/27/16 02:01 Last 24 Hours Test 11/25/16 20:04 11/26/16 05:29 11/26/16 06:49 11/26/16 11:44 Bedside Glucose 177 mg/dl 370 mg/dl 184 mg/dl White Blood Count 16.04 K/uL Red Blood Count 2.55 M/uL Hemoglobin 7.8 g/dL Hematocrit 23.6 % Mean Corpuscular Volume 92.5 fL Mean Corpuscular Hemoglobin 30.6 pg Mean Corpuscular Hemoglobin Concent 33.1 g/dl Platelet Count 82 K/uL Mean Platelet Volume 11.2 fL Neutrophils (%) (Auto) 83.0 % Lymphocytes (%) (Auto) 9.4 % Monocytes (%) (Auto) 7.1 % Eosinophils (%) (Auto) 0.2 % Basophils (%) (Auto) 0.0 % Neutrophils # (Auto) 13.30 K/uL Lymphocytes # (Auto) 1.51 K/uL Monocytes # (Auto) 1.14 K/uL Eosinophils # (Auto) 0.04 K/uL Basophils # (Auto) 0.00 K/uL RDW Standard Deviation 75.0 fL RDW Coefficient of Variation 22.6 % Immature Granulocyte % (Auto) 0.3 % Immature Granulocyte # (Auto) 0.05 K/uL Anisocytosis PRESENT Target Cells 1+ Sodium Level 142 mmol/L Potassium Level 4.3 mmol/L Chloride Level 105 mmol/L Carbon Dioxide Level 26 mmol/L Anion Gap 11.0 mmol/L Blood Urea Nitrogen 94 mg/dl Creatinine 4.60 mg/dl Est Creatinine Clear Calc Drug Dose 10.4 ml/min Estimated GFR () 10.0 Estimated GFR (Non- 8.6 BUN/Creatinine Ratio 20.5 Random Glucose 185 mg/dl Calcium Level 8.5 mg/dl Assessment & Plan arturo on ckd-creatinine continues to trend up. will check inr tomorrow and consult surgery for tunneled line for tomorrow and initiation of dialysis. pt with wheezing of lungs and not responding to diuretics. urination trending down.
--- NOTE | 2016-11-26 17:18 | Progress Note ---
Medicine Progress Note Date & Time of Visit: Nov 26, 2016 at 16:00. Subjective patient seen resting in bedside chair, comfortable overall states breathing is OK has minimal intermittent cough denies chest pain, dizziness, palpitations no other symptoms Objective Last 8 Hrs Date Time Temp Pulse Resp B/P (MAP) Pulse Ox O2 Delivery O2 Flow Rate FiO2 11/26/16 15:27 36.9 110 20 140/63 (88) 100 Oxymask 7.0 11/26/16 15:16 104 16 94 Nasal Cannula 2.0 11/26/16 15:15 Room Air 11/26/16 11:45 36.7 111 20 143/61 (88) 97 Nasal Cannula 1.0 11/26/16 11:16 Room Air 11/26/16 11:10 111 16 97 Nasal Cannula 2.0 11/26/16 08:46 37.0 108 20 131/86 (101) 96 Nasal Cannula 2.0 Physical Exam: General- oriented x 3, not in distress, speaks in sentences with no effort Neck- no JVD Lungs- mild rales bilateral bases Heart- regular rhythm; no murmur, mild tachycardia Abdomen- normal bowel sounds, soft, nontender Extremities- grade 1 leg edema, no calf tenderness Neuro- alert, oriented x 3;no gross focal deficits Skin- warm & dry Laboratory Results: Last 24 Hours Test 11/25/16 20:04 11/26/16 05:29 11/26/16 06:49 11/26/16 11:44 Bedside Glucose 177 mg/dl 370 mg/dl 184 mg/dl White Blood Count 16.04 K/uL Red Blood Count 2.55 M/uL Hemoglobin 7.8 g/dL Hematocrit 23.6 % Mean Corpuscular Volume 92.5 fL Mean Corpuscular Hemoglobin 30.6 pg Mean Corpuscular Hemoglobin Concent 33.1 g/dl Platelet Count 82 K/uL Mean Platelet Volume 11.2 fL Neutrophils (%) (Auto) 83.0 % Lymphocytes (%) (Auto) 9.4 % Monocytes (%) (Auto) 7.1 % Eosinophils (%) (Auto) 0.2 % Basophils (%) (Auto) 0.0 % Neutrophils # (Auto) 13.30 K/uL Lymphocytes # (Auto) 1.51 K/uL Monocytes # (Auto) 1.14 K/uL Eosinophils # (Auto) 0.04 K/uL Basophils # (Auto) 0.00 K/uL RDW Standard Deviation 75.0 fL RDW Coefficient of Variation 22.6 % Immature Granulocyte % (Auto) 0.3 % Immature Granulocyte # (Auto) 0.05 K/uL Anisocytosis PRESENT Target Cells 1+ Sodium Level 142 mmol/L Potassium Level 4.3 mmol/L Chloride Level 105 mmol/L Carbon Dioxide Level 26 mmol/L Anion Gap 11.0 mmol/L Blood Urea Nitrogen 94 mg/dl Creatinine 4.60 mg/dl Est Creatinine Clear Calc Drug Dose 10.4 ml/min Estimated GFR () 10.0 Estimated GFR (Non- 8.6 BUN/Creatinine Ratio 20.5 Random Glucose 185 mg/dl Calcium Level 8.5 mg/dl Assessment & Plan This is a 76 year old female with a PMH of CKD stage IV, DM2, HTN, HLD, GERD, hiatal hernia, MORRISON cirrhosis presented with a fall and found to have elevated troponin and creatinine levels ACUTE HYPOXIC RESPIRATORY FAILURE SECONDARY TO RIGHT PLEURAL EFFUSION POSSIBLE ASPIRATION PULMONARY EDEMA -- s/p Thoracentesis 11/23/[address] Phoenix drained 800cc PF studies ordered -- on Zosyn IV Day 10/19 Speech Therapy Eval: Dental soft, slippery diet was already given Solumedrol 40mg IV bid Pharm Glycemic Control consult placed -- on Lasix 40mg IV + albumin crea still rising discussed with Nephro, may need HD if with no improvement of volume overload ACUTE RENAL FAILURE ON Chronic Kidney Disease stage IV creatinine on admission 2.5 Creatine on 11/01/16 was 1.7 Nephrology on board -- on Lasix 40mg IV + albumin BID crea still rising discussed with Nephro, may need HD if with no improvement of volume overload MORRISON cirrhosis -- with some pleural effusion, likely hepatic hydrothorax -- GI reconsulted Liver US to quantify ascites: minimal -- repeat liver US: small to moderate ascites monitor for progression, may need Paracentesis Elevated Troponin Level Possible related to recent fall and elevated creatine no chest pain, no EKG changes, no significant findings on echo Mechanical Fall in the setting of Orthostatic Hypotension Norvasc was discontinued Midodrine was discontinued due to elevated BP Continue PT/OT -- accepted to SNF Hypotension BP has been stable Midodrine was discontinued Thrombocytopenia Related to MORRISON ascites Platelet 92 No sign of bleeding HIT score 2 Depression/Anxiety Prozac was discontinued Continue Remeron stable Hiatal Hernia/GERD nonsurgical continue PPI software installation engineer consulted Boost BID added as per software installation engineer DM2 diet-controlled last Ha1c ~ 6.4% on 09/29 DVT ppx SCDs ambulation due to low plt, no anticoagulation CODE STATUS FULL CODE DISPOSITION pending needs to be transitioned to SNF Consultants: Nephrology Consultants: Nephrology Current Inpatient Medications: Current Inpatient Medications Medications (Trade) Dose Ordered Sig/Edilson Route Start Time Stop Time Status Last Admin Dose Admin Albuterol (Ventolin Hfa Inhaler) 2 puffs Q4 PRN INH 11/12/16 22:00 12/12/16 21:59 Atorvastatin Calcium (Lipitor Tab) 10 mg HS PO 11/13/16 21:00 12/13/16 20:59 11/25/16 20:08 10 MG Cholestyramine Resin (Questran Powder Light) 4 gm BID@10,22 PO 11/12/16 22:00 12/12/16 21:59 11/25/16 10:14 4 GM Ondansetron HCl (Zofran Tab) 4 mg Q6H PRN PO 11/12/16 22:00 12/12/16 21:59 11/25/16 09:36 4 MG Pantoprazole Sodium (Protonix Tab) 40 mg DAILY PO 11/13/16 09:00 12/13/16 08:59 11/26/16 08:56 40 MG Buspirone HCl (Buspar Tab) 10 mg TID PO 11/13/16 09:00 12/13/16 08:59 11/26/16 08:56 10 MG Loperamide HCl (Imodium Cap) 2 mg Q12H PRN PO 11/12/16 22:00 12/12/16 21:59 11/25/16 07:59 2 MG Potassium/ Phosphorus/Sodium (Phospha 250 Neutral 155-852-130 Mg) 1 tab BID PO 11/13/16 09:00 12/13/16 08:59 11/26/16 08:56 1 TAB Mirtazapine (Remeron Tab) 15 mg HS PO 11/13/16 21:00 12/13/16 20:59 11/25/16 20:10 15 MG Glucose (Glucose 40% Gel) 15-30 GRAMS 15 GRAMS... UD PRN PO 11/17/16 12:45 12/17/16 12:44 Glucose (Glucose Chew Tab) 4-8 Tablets 4 Tabl... UD PRN PO 11/17/16 12:45 12/17/16 12:44 Dextrose (Dextrose 50% 50ML Syringe) 25-50ML OF 50% DW IV FOR... UD PRN IV 11/17/16 12:45 12/17/16 12:44 Glucagon (Glucagon Inj) 1 mg UD PRN SQ 11/17/16 12:45 12/17/16 12:44 Polyethylene (Miralax Powder Packet) 17 gm DAILY PRN PO 11/17/16 12:45 12/17/16 12:44 Docusate Sodium (coLACE CAP) 100 mg BID PO 11/17/16 21:00 12/17/16 20:59 11/25/16 20:07 100 MG Piperacillin Sod/ Tazobactam Sod (Consult) 1 ea UD PRN N/A 11/20/16 19:45 12/20/16 19:44 Piperacillin Sod/ Tazobactam Sod 3.375 gm/Dextrose 115 ml @ 28.75 mls/ hr Q12H IV 11/21/16 06:00 11/27/16 05:59 11/26/16 05:43 28.75 MLS/HR Al Hydroxide/Mg Hydroxide (Maalox Susp) 15 ml Q4H PRN PO 11/21/16 21:45 12/21/16 21:44 11/21/16 21:56 15 ML Ipratropium [place] (Atrovent 0.02% 0.5MG/2.5ML Neb) 0.5 mg Q4R INH 11/22/16 12:00 12/22/16 11:59 11/26/16 15:14 0.5 MG Miscellaneous Information (Consult Glycemic Management Pharmacy) 1 ea UD PRN N/A 11/23/16 09:47 12/23/16 09:46 Enteral Nutritional Formula (Boost Glucose Control) 0.5 can ACHS PO 11/23/16 11:00 12/23/16 10:59 11/26/16 15:59 0.5 CAN Insulin Glargine (Lantus Solostar Pen) SEE PROTOCOL BID SC 11/24/16 09:00 12/24/16 08:59 11/26/16 09:01 12 UNITS Insulin Aspart (novoLOG ASPART) SLIDING SCALE ACHS SC 11/24/16 21:00 12/24/16 20:59 11/26/16 11:00 9 UNITS Benzonatate (Tessalon Perles Cap) 100 mg TID PRN PO 11/24/16 15:00 12/24/16 14:59 11/24/16 17:17 100 MG Levalbuterol (Xopenex 0.63 Mg/ 3 Ml Neb) 0.63 mg Q4R INH 11/25/16 12:00 12/22/16 11:59 11/26/16 15:14 0.63 MG Oxymetazoline HCl (Afrin 0.05% Nasal [place]) 1 sprays Q6H PRN NA 11/25/16 11:00 12/25/16 10:59 Furosemide 80 mg/ Albumin Human 58 ml @ 54 mls/hr BID IV 11/25/16 13:30 11/28/16 13:29 11/26/16 08:57 54 MLS/HR Insulin Aspart (novoLOG ASPART) SLIDING SCALE TODAY@0200 ONCE SC 11/27/16 02:00 11/27/16 02:01
[2016-11-26] MEDS: ATORVASTATIN 10 MG TAB PO SCH (21:02)
[2016-11-26] MEDS: MIRTAZAPINE TAB 15 MG TAB PO SCH (21:02)
[2016-11-27] VITALS (24 sets, daily range): BP systolic 78–128; BP diastolic 41–86; PULSE 97–109; TEMP 36.4–37.1; O2SAT 90–99
[2016-11-27] MEDS ORDERED: INSULIN ASPART 100 UNITS/ML 3 ML PEN SC ONE (02:00)
[2016-11-27] MEDS: IPRATROPIUM BROMIDE NEB SOLN 0.02% 2.5 ML VIAL INH SCH ×7 (03:22→23:08)
[2016-11-27] MEDS: LEVALBUTEROL 0.63MG/3 ML NEB INH SCH ×7 (03:22→23:08)
[2016-11-27 05:53] LABS: MEAN CORPUSCULAR HGB CONC 32.8 g/dl (32-36)
[2016-11-27 05:59] LABS: INR 1.4 (0.9-1.1); PROTHROMBIN TIME (PATIENT) 15.1 SECONDS (9.0-12.0)
[2016-11-27] MEDS ORDERED: CEFAZOLIN 1000MG/55 ML D5W IV SCH (06:00)
[2016-11-27 06:03] LABS: HEMATOCRIT 23.5 % (37-47); MEAN CELL VOLUME 92.5 fL (80-100); MEAN CORPUSCULAR HEMOGLOBIN 30.3 pg (25-34); RED BLOOD COUNT 2.54 M/uL (4.2-5.4)
[2016-11-27 06:29] LABS: PLATELET COUNT 79 K/uL (130-400)
[2016-11-27 06:36] LABS: ANISOCYTOSIS PRESENT; BASO % 0.1 %; BASO ABS # 0.01 K/uL (0-0.2); COMPLETE YES; EOS % 0.7 %; IG% 0.2 %; LARGE PLATELETS 1+; LYMPH % 9.8 %; MONO % 6.6 %; NEUT % 82.6 %; PLT ESTIMATE DECREASED
[2016-11-27 06:38] LABS: BUN/CREATININE RATIO 19.1 (10-20); CALCIUM 8.8 mg/dl (8.5-10.1); CREATININE 5.2 mg/dl (0.60-1.20)
[2016-11-27] MEDS: INSULIN ASPART 100 UNITS/ML 3 ML PEN SC SCH ×4 (07:00→21:01)
[2016-11-27] MEDS ORDERED: CEFAZOLIN SOD 1000MG/55 ML D5W IV ONE (07:16)
[2016-11-27] MEDS ORDERED: HEPARIN SOD (PORCINE) 5000 UNIT/ML 1 ML VIAL ONE (07:18)
[2016-11-27] MEDS ORDERED: MIDAZOLAM HCL 1 MG/ML 2ML VIAL ONE (07:19)
[2016-11-27] MEDS ORDERED: FENTANYL CITRATE INJ 50 MCG/1 ML 2 ML VIAL ONE (07:19)
[2016-11-27] MEDS ORDERED: NURSING VERBAL MED ORDER ONE (07:30)
--- NOTE | 2016-11-27 07:31 | Surgery Consultation ---
Consultation Date of Service Nov 27, 2016. (Duyen Wright, CINDY) Chief Complaint acute on chronic renal failure (Duyen Wright, CINDY) History of Present Illness The patient is a 76 year old female with HTN, admitted with acute on chronic renal failure, seen in consultation for insertion of TDC for HD. Pt admits fatigue, malaise. Denies PAGAN, fever, chills, chest pain, abd pain, N/V, rest pain, claudication, other complaints. (Duyen Wright, CINDY) Vitals Vital Signs Past 12 Hours Date Time Temp Pulse Resp B/P (MAP) Pulse Ox O2 Delivery O2 Flow Rate FiO2 11/27/16 04:01 Nasal Cannula 2.0 Humidified Oxygen 11/27/16 04:00 37.1 102 19 120/46 (70) 96 Nasal Cannula 2.0 11/27/16 03:23 101 16 97 Nasal Cannula 2.0 11/27/16 00:05 Nasal Cannula 2.0 Humidified Oxygen 11/27/16 00:02 37.0 101 19 120/54 (76) 95 Nasal Cannula 2.0 11/27/16 00:00 100 16 94 Nasal Cannula 2.0 11/26/16 20:00 Nasal Cannula 2.0 Humidified Oxygen 11/26/16 19:53 102 18 94 Nasal Cannula 2.0 (Duyen Wright, CINDY) Allergies Coded Allergies: Erythromycin (Unverified Allergy, Mild, STOMACH PAIN, 10/23/16) Butorphanol (Unverified Allergy, Unknown, LOOPY, 10/23/16) Home Medications Scheduled Amlodipine (Norvasc), 2.5 MG PO DAILY Atorvastatin (Lipitor), 10 MG PO HS Buspirone Hcl (Buspirone Hcl), 10 MG PO TID Cholestyramine (Cholestyramine Light), 4 GM PO BID@ Fluoxetine (Prozac), 80 MG PO DAILY Furosemide (Lasix), 40 MG PO DAILY Lutein (Hm Lutein), 20 MG PO DAILY Midodrine (Midodrine HCl), 5 MG PO TID@08,12,17 Multiple Vitamins W/ Minerals (Icaps), 1 CAP PO DAILY Pantoprazole (Protonix), 40 MG PO DAILY Potassium Phosphate Monobasic (K-Phos), 250 MG PO BID Scheduled PRN Albuterol (Ventolin Hfa), 2 PUFFS INH Q4 PRN for SOB/Wheezing Loperamide Hcl (Loperamide Hcl), 2 MG PO UD PRN for Constipation Ondansetron Hcl (Zofran), 4 MG PO Q6H PRN for Nausea Problem List Medical Problems: (1) Ascites of liver (2) Asthma (3) CKD (chronic kidney disease), stage IV (4) DM type 2 (diabetes mellitus, type 2) (5) Dyslipidemia (6) GERRY (generalized anxiety disorder) (7) Generalized anxiety disorder (8) GERD (gastroesophageal reflux disease) (9) HTN (hypertension) (10) MORRISON (nonalcoholic steatohepatitis) (11) Pleural effusion (12) Varices, esophageal Surgical Problems: (1) H/O sinus surgery (2) History of esophagogastroduodenoscopy (EGD) (3) History of hysterectomy (4) Hx of appendectomy (5) S/P cardiac cath (6) S/p rectocele repair (Duyen Wright PA-C) Surgical / Medical History Hx Cardiac Surgery: Yes (Cardiac Cath) Hx Abdominal Surgery: Yes (gallbladder, appy, hysterectomy) Hx Cancer Surgery: No Hx Thoracic Surgery: No Hx Orthopedic: No Hx Urinary Tract Surgery: No HX Other Surgery: No Past Medical/Surgical History: Hypertension, Kidney Disease (Duyen Wright PA-C) Family History Cardiac disorder MOTHER FH: cancer FATHER (lung CA) (Duyen Wright PA-C) Cardiac disorder MOTHER FH: cancer FATHER (lung CA) (Torin Manzanares M.D.) Social History Smoking Status: Never Smoker Hx Tobacco Use In Past Year?: No Hx Alcohol Use - Type & Amnt: No Hx Substance Use -Type & Amnt: No (Duyen Wright PA-C) Review of Systems Constitutional: + malaise, No chills Skin: No change in color Eyes: No visual changes ENMT: No sore throat Respiratory: No cough, No hemoptysis, No short of breath Cardiovascular: + edema, No chest pain, No palpitations, No syncope, No intermittent claudication Gastrointestinal: No abdominal pain, No nausea, No vomiting Genitourinary - Female: No dysuria, No hematuria Neurologic: No dizziness, No headache, No numbness (Duyen Wright, POLOC) Physical Exam Constitutional: General Apperance: well-nourished, well-developed Level of Distress: NAD, acutely ill, chronically ill Psychiatric: Mental Status: active & alert, normal mood, normal affect Orientation: oriented except where noted, to time, to place, to person Memory: recent memory abnormal, remote memory abnormal Head: normocephalic, atraumatic Eyes: EOM: EOMI ENMT: normal ENT inspection, hearing grossly normal Neck: supple, trachea midline Lungs: Respiratory effort: no dyspnea Auscultation: no wheezing, no rhonchi Cardiovascular: Apical Impulse: not displaced Heart Auscultation: no rubs, no gallops Peripheral Pulses: Pulses: full and equal, in all extremities except if noted Bruits: none appreciated Carotid Pulse: normal on the left, normal on the right Brachial Pulses: normal on the left, normal on the right Radial Pulse: normal on the left, normal on the right Femoral Pulse: normal on the left, normal on the right Posterior Tibialis Pulse: decreased on the left, decreased on the right Dorsalis Pedis Pulse: decreased on the left, decreased on the right Abdomen: Bowel Sounds: normal Inspection & Palpation: soft, non-distended, no tenderness, guarding & rebound Musculoskeletal: normal strength (5/5 throughout), normal tone Extremities: Upper Right: no cyanosis, no varicosities, edema Upper Left: no cyanosis, no varicosities, no palpable cord, edema Lower Right: no cyanosis, no varicosities, no palpable cord, edema Lower Left: no cyanosis, no varicosities, edema Neurologic: Cranial Nerves: grossly intact Sensation: grossly intact (Duyen Wright, POLOC) Assessment and Plan ASSESSMENT adn PLAN: Acute on chronic renal failure Pt for TDC insertion this AM by Dr Manzanares. Procedure, risks, benefits and alternatives discussed with pt, she expresses understanding and agreement. (Duyen Wright, POLOC) Patient was seen, examined, and chart reviewed. Agree with exam and treatment plan of the Vascular PA. Patient for permcath insertion I have discussed the risks options and benefits of the procedure with the patient. The patient understands the risks options and benefits and agrees to the procedure. (Torin Manzanares M.D.)
--- NOTE | 2016-11-27 07:45 | Procedure Note ---
Pre-Mod Sedation Assessment General Date of Moderate Sedation: Nov 27, 2016. Vital Signs: Vital Signs Past 12 Hours Date Time Temp Pulse Resp B/P (MAP) Pulse Ox O2 Delivery O2 Flow Rate FiO2 11/27/16 04:01 Nasal Cannula 2.0 Humidified Oxygen 11/27/16 04:00 37.1 102 19 120/46 (70) 96 Nasal Cannula 2.0 11/27/16 03:23 101 16 97 Nasal Cannula 2.0 11/27/16 00:05 Nasal Cannula 2.0 Humidified Oxygen 11/27/16 00:02 37.0 101 19 120/54 (76) 95 Nasal Cannula 2.0 11/27/16 00:00 100 16 94 Nasal Cannula 2.0 11/26/16 20:00 Nasal Cannula 2.0 Humidified Oxygen 11/26/16 19:53 102 18 94 Nasal Cannula 2.0 Pre-Sedation Airway Assessment Oral Cavity: Dentures Short Thick Neck: Yes Hx of Sleep Apnea: No Smoking Status: Never Smoker Mallampati Classification: Class I ASA Classification: Class IV Notes The planned sedation has been discussed with the patient and consent obtained. I have identified the patient, determined the appropriateness of sedation and have assessed the patient immediately prior to the procedure. All medicine(s) and interventions are by my order.
[2016-11-27] MEDS ORDERED: LIDOCAINE HCL 1% 20 ML VIAL INJ ONE ×2 (08:02→08:18)
[2016-11-27] MEDS ORDERED: MIDAZOLAM HCL 1 MG/ML 2ML VIAL IV ONE (08:03)
--- NOTE | 2016-11-27 08:15 | [facility] Post Operative Brief Note ---
Immediate Operative Summary Operative Date Nov 27, 2016. Pre-Operative Diagnosis Acute renal failure Post-Operative Diagnosis Same Procedure(s) Performed Insertion right internal jugular vein permcath usn localization of int jugular vein fluoro for positioing conscious sedaton ([id number]) Surgeon Praveen Husker Operator Surgeon(s) Faisal Weinstein MD Estimated Blood Loss 3 Findings tip in distal SVC Specimens none Anesthesia Local with sedation Complication(s) None Disposition
[2016-11-27] MEDS ORDERED: HEPARIN SOD (PORCINE) 5000 UNIT/ML 1 ML VIAL IV ONE (08:18)
--- NOTE | 2016-11-27 08:20 | [facility] Operative Report ---
Operative Report Operative Date Nov 27, 2016. Pre-Operative Diagnosis Acute renal failure Post-Operative Diagnosis Same Procedure(s) Performed Insertion right internal jugular vein permcath usn localization of int jugular vein fluoro for positioing conscious sedaton ([id number]) Surgeon Praveen Motor And Generator Brush Maker Surgeon(s) Faisal Weinstein MD Estimated Blood Loss 3 Findings tip of the permcath is in the SVC Specimens none Anesthesia Local with sedation Complication(s) None Disposition Indications 76 yo Female with CKD now admitted with Acute on chronic renal failure requiring HD. Description of Procedure Patient was takent to the angio suite and placed in the supine position. The right side of the neck and chest wall were prepped and draped in a sterile manner. Local anesthesia was then administered to the appropriate areas of the neck and chest wall. Ultrasound was then used to locate the right internal jugular vein. The vein compressed easily, had no filing defects, and was patent. The vein was then punctured under direct ultrasound imaging. A guidewire was then passed centrally under fluoroscopic imaging. A stab wound was then made in the anterior chest wall and a 19 cm permcath was passed from the stab wound on the chest wall to the puncture site on the neck. The puncture site was then dilated till the 14Fr peel away sheath was inserted. The permcath was then inserted through the sheath to a central position in the distal superior vena cava. The peel away sheath was then removed. The catheter was then sutured in place using nylon sutures. The puncture was then closed using a 4-0 Vicryl subcuticular suture. Dermabond was used for a dressing on the puncture site. Both ports aspirated and flushed easily and were then packed with heparin. A sterile dressing was applied to the catheter. The patient left the angio suite in good condition and tolerated the procedure well. I, Dr. Morton was present and scrubbed for the entire procedure. I attest to the content of the Intraoperative Record and any orders documented therein. Any exceptions are noted below.
[2016-11-27] MEDS: BOOST GLUCOSE CONTROL PO SCH ×4 (08:49→20:57)
[2016-11-27] MEDS: INSULIN GLARGINE SOLOSTAR 100 UNITS/ML 3 ML PEN SC SCH ×2 (08:59→21:00)
[2016-11-27] MEDS: ALBUMIN 25% 50 ML with FUROSEMIDE INJ 80 MG IV SCH ×2 (09:00)
[2016-11-27] MEDS: DOCUSATE SODIUM 100 MG CAP PO SCH ×2 (09:00→20:57)
--- NOTE | 2016-11-27 09:08 | Nephrology Progress Note ---
Nephrology Progress Note Date of Service: Nov 27, 2016. Subjective 76 yo female with arturo in setting of cirrhosis with aspiration pneumonia and not responding to diuretics. npo this morning and had tunneled line placed. pt sleepy this morning after line placement but arousable. comfortable. Objective Date Time Temp Pulse Resp B/P (MAP) Pulse Ox O2 Delivery O2 Flow Rate FiO2 11/27/16 08:19 101 16 103/67 99 Mask 6 11/27/16 04:01 Nasal Cannula 2.0 Humidified Oxygen 11/27/16 04:00 37.1 102 19 120/46 (70) 96 Nasal Cannula 2.0 11/27/16 03:23 101 16 97 Nasal Cannula 2.0 11/27/16 00:05 Nasal Cannula 2.0 Humidified Oxygen 11/27/16 00:02 37.0 101 19 120/54 (76) 95 Nasal Cannula 2.0 11/27/16 00:00 100 16 94 Nasal Cannula 2.0 11/26/16 20:00 Nasal Cannula 2.0 Humidified Oxygen 11/26/16 19:53 102 18 94 Nasal Cannula 2.0 11/26/16 19:06 37.0 111 14 131/58 (82) 95 Nasal Cannula 1.5 11/26/16 15:27 36.9 110 20 140/63 (88) 100 Oxymask 7.0 11/26/16 15:16 104 16 94 Nasal Cannula 2.0 11/26/16 15:15 Room Air 11/26/16 11:45 36.7 111 20 143/61 (88) 97 Nasal Cannula 1.0 11/26/16 11:16 Room Air 11/26/16 11:10 111 16 97 Nasal Cannula 2.0 Physical Exam: General-[id number] Eyes-no scleral icterus ENT-mmm Neck-supple Lungs-+wheezing Heart-tachycardia Abdomen-bs+ s/+distention Extremities-+2 edema-pitting Neuro-nonfocal Current Inpatient Medications Medications (Trade) Dose Ordered Sig/Edilson Route Start Time Stop Time Status Last Admin Dose Admin Albuterol (Ventolin Hfa Inhaler) 2 puffs Q4 PRN INH 11/12/16 22:00 12/12/16 21:59 Atorvastatin Calcium (Lipitor Tab) 10 mg HS PO 11/13/16 21:00 12/13/16 20:59 11/26/16 21:02 10 MG Cholestyramine Resin (Questran Powder Light) 4 gm BID@10,22 PO 11/12/16 22:00 12/12/16 21:59 11/25/16 10:14 4 GM Ondansetron HCl (Zofran Tab) 4 mg Q6H PRN PO 11/12/16 22:00 12/12/16 21:59 11/25/16 09:36 4 MG Pantoprazole Sodium (Protonix Tab) 40 mg DAILY PO 11/13/16 09:00 12/13/16 08:59 11/26/16 08:56 40 MG Buspirone HCl (Buspar Tab) 10 mg TID PO 11/13/16 09:00 12/13/16 08:59 11/26/16 21:02 10 MG Loperamide HCl (Imodium Cap) 2 mg Q12H PRN PO 11/12/16 22:00 12/12/16 21:59 11/25/16 07:59 2 MG Potassium/ Phosphorus/Sodium (Phospha 250 Neutral 155-852-130 Mg) 1 tab BID PO 11/13/16 09:00 12/13/16 08:59 11/26/16 21:02 1 TAB Mirtazapine (Remeron Tab) 15 mg HS PO 11/13/16 21:00 12/13/16 20:59 11/26/16 21:02 15 MG Glucose (Glucose 40% Gel) 15-30 GRAMS 15 GRAMS... UD PRN PO 11/17/16 12:45 12/17/16 12:44 Glucose (Glucose Chew Tab) 4-8 Tablets 4 Tabl... UD PRN PO 11/17/16 12:45 12/17/16 12:44 Dextrose (Dextrose 50% 50ML Syringe) 25-50ML OF 50% DW IV FOR... UD PRN IV 11/17/16 12:45 12/17/16 12:44 Glucagon (Glucagon Inj) 1 mg UD PRN SQ 11/17/16 12:45 12/17/16 12:44 Polyethylene (Miralax Powder Packet) 17 gm DAILY PRN PO 11/17/16 12:45 12/17/16 12:44 Docusate Sodium (coLACE CAP) 100 mg BID PO 11/17/16 21:00 12/17/16 20:59 8/14/17 21:02 100 MG Al Hydroxide/Mg Hydroxide (Maalox Susp) 15 ml Q4H PRN PO 11/21/16 21:45 12/21/16 21:44 11/21/16 21:56 15 ML Ipratropium [place] (Atrovent 0.02% 0.5MG/2.5ML Neb) 0.5 mg Q4R INH 11/22/16 12:00 12/22/16 11:59 11/27/16 03:22 0.5 MG Miscellaneous Information (Consult Glycemic Management Pharmacy) 1 ea UD PRN N/A 11/23/16 09:47 12/23/16 09:46 Enteral Nutritional Formula (Boost Glucose Control) 0.5 can ACHS PO 11/23/16 11:00 12/23/16 10:59 11/27/16 08:49 0.5 CAN Insulin Glargine (Lantus Solostar Pen) SEE PROTOCOL BID SC 11/24/16 09:00 12/24/16 08:59 11/27/16 08:59 12 UNITS Insulin Aspart (novoLOG ASPART) SLIDING SCALE ACHS SC 11/24/16 21:00 12/24/16 20:59 11/26/16 21:05 2 UNITS Benzonatate (Tessalon Perles Cap) 100 mg TID PRN PO 11/24/16 15:00 12/24/16 14:59 11/24/16 17:17 100 MG Levalbuterol (Xopenex 0.63 Mg/ 3 Ml Neb) 0.63 mg Q4R INH 11/25/16 12:00 12/22/16 11:59 11/27/16 03:22 0.63 MG Oxymetazoline HCl (Afrin 0.05% Nasal [place]) 1 sprays Q6H PRN NA 11/25/16 11:00 12/25/16 10:59 Furosemide 80 mg/ Albumin Human 58 ml @ 54 mls/hr BID IV 11/25/16 13:30 11/28/16 13:29 11/26/16 21:03 54 MLS/HR Cefazolin Sodium 55 ml @ 100 mls/hr PREOP IV 11/27/16 06:00 11/27/16 18:00 11/27/16 07:25 100 MLS/HR Last 24 Hours Test 11/26/16 11:44 11/26/16 16:05 11/26/16 20:00 11/27/16 02:10 Bedside Glucose 184 mg/dl 181 mg/dl 188 mg/dl 193 mg/dl Test 11/27/16 05:22 11/27/16 06:33 11/27/16 08:09 White Blood Count 16.40 K/uL Red Blood Count 2.54 M/uL Hemoglobin 7.7 g/dL Hematocrit 23.5 % Mean Corpuscular Volume 92.5 fL Mean Corpuscular Hemoglobin 30.3 pg Mean Corpuscular Hemoglobin Concent 32.8 g/dl Platelet Count 79 K/uL Neutrophils (%) (Auto) 82.6 % Lymphocytes (%) (Auto) 9.8 % Monocytes (%) (Auto) 6.6 % Eosinophils (%) (Auto) 0.7 % Basophils (%) (Auto) 0.1 % Neutrophils # (Auto) 13.55 K/uL Lymphocytes # (Auto) 1.60 K/uL Monocytes # (Auto) 1.09 K/uL Eosinophils # (Auto) 0.11 K/uL Basophils # (Auto) 0.01 K/uL RDW Standard Deviation 75.3 fL RDW Coefficient of Variation 22.6 % Immature Granulocyte % (Auto) 0.2 % Immature Granulocyte # (Auto) 0.04 K/uL Platelet Estimate DECREASED Large Platelets 1+ Anisocytosis PRESENT Prothrombin Time 15.1 SECONDS Prothromb Time International Ratio 1.4 Sodium Level 139 mmol/L Potassium Level 4.0 mmol/L Chloride Level 102 mmol/L Carbon Dioxide Level 24 mmol/L Anion Gap 13.0 mmol/L Blood Urea Nitrogen 99 mg/dl Creatinine 5.20 mg/dl Est Creatinine Clear Calc Drug Dose 9.3 ml/min Estimated GFR () 8.6 Estimated GFR (Non- 7.5 BUN/Creatinine Ratio 19.1 Random Glucose 147 mg/dl Calcium Level 8.8 mg/dl Bedside Glucose 164 mg/dl Assessment & Plan arturo on ckd-creatinine continues to trend up. needs to start dialysis to help with uremic symptoms and volume removal. not responding to lasix and will d/c it for now and dialyze daily with fluid removal as bp tolerates. anemia-hg levels are trending down. will check iron sat and ferritin levels. hold on procrit at this time. would need to discuss risks and benefits of procrit before initiating. for now, transfuse prn.
--- NOTE | 2016-11-27 09:24 | Pulmonology Progress Note ---
Pulmonary Progress Note Date of Service Nov 27, 2016. Attending Dr. Clark Subjective Patient seen and examined. She states that she feels worn out. She denies any fever, chills, chest pain, cough. She has mild shortness of breath. She is s/p right IJ tunnel catheter placement for temporary hemodialysis. Objective VS today. Afebrile 37.1, BP 103/67, P 100-105, RR 16-19. She is saturating 94-99 % on 2-6 L NC. Her cumulative balance today is 1423 ml +. O/E: Gen: AAOx3, NAD, speaking in full sentences. No acute respiratory distress. No use of accessory muscles of respiration. HEENT: AT/NC, PERRL, EOMI, ears--hearing normal, nose-normal nasal turbinates; there is a nasal canula in place, throat--no tonsillar exudates CVS: S1, S2, tachycardic Lungs: diminished breath sounds b/l, bibasilar crackles Abd: distended, nontender, BS+ Ext: pitting edema up to knees bilaterally about +3, no cyanosis or clubbing noted Eduardo catheter in place Labs reviewed and significant for creatinine is 5.20 and platelet 79 today. Imaging reviewed. Venous Doppler b/l LE: 10/26/2016No DVT within right or left lower extremity. CXR 11/26/2016--FINDINGS: Mild improvement of aeration the hemithoraces bilaterally. Persistent consolidative/atelectatic changes left base. Improved perihilar infiltrates. Chronic elevation left hemidiaphragm. Trace pleural fluid right base improved. IMPRESSION: Improved exam. Mild residual bibasilar consolidative/effusion-type change. Abdominal U/S 11/26/2016 IMPRESSION: 1. Small to moderate ascites, increased since exam of November 20, 2016. 2. Bilateral pleural effusions, right larger than left. CT Chest 11/20/2016 IMPRESSION: 1. Moderate right pleural effusion and small left pleural effusion with basilar atelectasis 2. Groundglass left upper lobe opacities, suspicious for a pneumonitis. Clinical and imaging follow-up is recommended 3. Large hiatal hernia 4. Ascites. Splenomegaly Medications from a respiratory standpoint include: Xopenex, Atrovent, Tessalon Perles, Zosyn 3.375 mg and Lasix 80 mg BID. Assessment & Plan 1. Transudative pleural effusion, likely secondary to underlying renal disease or liver disease. 2. Asthma by history. 3. Possible aspiration pneumonia left upper lobe, CAT scan report. 4. RUL 1.5 cm ground glass nodule 5. Chronic kidney disease stage IV. 6. Large hiatal hernia. 7. Nonalcoholic steatohepatitis. 8. Splenomegaly. Patient has failed diuretic treatment. Hemodialysis should help with fluid overload and should alleviate some of dyspnea. Continue to keep her SaO2>92%. Her CXR from 11/26/2016 showed interval improvement of right pleural effusion. Pathology is still pending. Cultures are negative thus far. AFB is still pending. Pleural effusions are likely from underlying kidney and liver disease. I would continue with albuterol and xopenex for bronchodilatory agents. CTA is negative for PE. Continue with Zosyn for aspiration pneumonia to complete total of 7 days. I would recommend interval follow up of CT as an outpatient to evaluate for resolution in a 6 weeks. In regards to MORRISON, she is known to GI and they are following. Data Medications: Current Inpatient Medications Medications (Trade) Dose Ordered Sig/Edilson Route Start Time Stop Time Status Last Admin Dose Admin Albuterol (Ventolin Hfa Inhaler) 2 puffs Q4 PRN INH 11/12/16 22:00 12/12/16 21:59 Atorvastatin Calcium (Lipitor Tab) 10 mg HS PO 11/13/16 21:00 12/13/16 20:59 11/26/16 21:02 10 MG Cholestyramine Resin (Questran Powder Light) 4 gm BID@ PO 11/12/16 22:00 12/12/16 21:59 11/25/16 10:14 4 GM Ondansetron HCl (Zofran Tab) 4 mg Q6H PRN PO 11/12/16 22:00 12/12/16 21:59 11/25/16 09:36 4 MG Pantoprazole Sodium (Protonix Tab) 40 mg DAILY PO 11/13/16 09:00 12/13/16 08:59 11/26/16 08:56 40 MG Buspirone HCl (Buspar Tab) 10 mg TID PO 11/13/16 09:00 12/13/16 08:59 11/26/16 21:02 10 MG Loperamide HCl (Imodium Cap) 2 mg Q12H PRN PO 11/12/16 22:00 12/12/16 21:59 11/25/16 07:59 2 MG Potassium/ Phosphorus/Sodium (Phospha 250 Neutral 155-852-130 Mg) 1 tab BID PO 11/13/16 09:00 12/13/16 08:59 11/26/16 21:02 1 TAB Mirtazapine (Remeron Tab) 15 mg HS PO 11/13/16 21:00 12/13/16 20:59 11/26/16 21:02 15 MG Glucose (Glucose 40% Gel) 15-30 GRAMS 15 GRAMS... UD PRN PO 11/17/16 12:45 12/17/16 12:44 Glucose (Glucose Chew Tab) 4-8 Tablets 4 Tabl... UD PRN PO 11/17/16 12:45 12/17/16 12:44 Dextrose (Dextrose 50% 50ML Syringe) 25-50ML OF 50% DW IV FOR... UD PRN IV 11/17/16 12:45 12/17/16 12:44 Glucagon (Glucagon Inj) 1 mg UD PRN SQ 11/17/16 12:45 12/17/16 12:44 Polyethylene (Miralax Powder Packet) 17 gm DAILY PRN PO 11/17/16 12:45 12/17/16 12:44 Docusate Sodium (coLACE CAP) 100 mg BID PO 11/17/16 21:00 12/17/16 20:59 11/26/16 21:02 100 MG Al Hydroxide/Mg Hydroxide (Maalox Susp) 15 ml Q4H PRN PO 11/21/16 21:45 12/21/16 21:44 11/21/16 21:56 15 ML Ipratropium [place] (Atrovent 0.02% 0.5MG/2.5ML Neb) 0.5 mg Q4R INH 11/22/16 12:00 12/22/16 11:59 11/27/16 03:22 0.5 MG Miscellaneous Information (Consult Glycemic Management Pharmacy) 1 ea UD PRN N/A 11/23/16 09:47 12/23/16 09:46 Enteral Nutritional Formula (Boost Glucose Control) 0.5 can ACHS PO 11/23/16 11:00 12/23/16 10:59 11/27/16 08:49 0.5 CAN Insulin Glargine (Lantus Solostar Pen) SEE PROTOCOL BID SC 11/24/16 09:00 12/24/16 08:59 11/27/16 08:59 12 UNITS Insulin Aspart (novoLOG ASPART) SLIDING SCALE ACHS SC 11/24/16 21:00 12/24/16 20:59 11/26/16 21:05 2 UNITS Benzonatate (Tessalon Perles Cap) 100 mg TID PRN PO 11/24/16 15:00 12/24/16 14:59 11/24/16 17:17 100 MG Levalbuterol (Xopenex 0.63 Mg/ 3 Ml Neb) 0.63 mg Q4R INH 11/25/16 12:00 12/22/16 11:59 11/27/16 03:22 0.63 MG Oxymetazoline HCl (Afrin 0.05% Nasal [place]) 1 sprays Q6H PRN NA 11/25/16 11:00 12/25/16 10:59 Furosemide 80 mg/ Albumin Human 58 ml @ 54 mls/hr BID IV 11/25/16 13:30 11/28/16 13:29 11/26/16 21:03 54 MLS/HR Cefazolin Sodium 55 ml @ 100 mls/hr PREOP IV 11/27/16 06:00 11/27/16 18:00 11/27/16 07:25 100 MLS/HR Vital Signs: Date Time Temp Pulse Resp B/P (MAP) Pulse Ox O2 Delivery O2 Flow Rate FiO2 11/27/16 08:19 101 16 103/67 99 Mask 6 11/27/16 04:01 Nasal Cannula 2.0 Humidified Oxygen 11/27/16 04:00 37.1 102 19 120/46 (70) 96 Nasal Cannula 2.0 11/27/16 03:23 101 16 97 Nasal Cannula 2.0 11/27/16 00:05 Nasal Cannula 2.0 Humidified Oxygen 11/27/16 00:02 37.0 101 19 120/54 (76) 95 Nasal Cannula 2.0 11/27/16 00:00 100 16 94 Nasal Cannula 2.0 11/26/16 20:00 Nasal Cannula 2.0 Humidified Oxygen 11/26/16 19:53 102 18 94 Nasal Cannula 2.0 11/26/16 19:06 37.0 111 14 131/58 (82) 95 Nasal Cannula 1.5 11/26/16 15:27 36.9 110 20 140/63 (88) 100 Oxymask 7.0 11/26/16 15:16 104 16 94 Nasal Cannula 2.0 11/26/16 15:15 Room Air 11/26/16 11:45 36.7 111 20 143/61 (88) 97 Nasal Cannula 1.0 11/26/16 11:16 Room Air 11/26/16 11:10 111 16 97 Nasal Cannula 2.0 Laboratory Results: Last 24 Hours Test 11/26/16 11:44 11/26/16 16:05 11/26/16 20:00 11/27/16 02:10 Bedside Glucose 184 mg/dl 181 mg/dl 188 mg/dl 193 mg/dl Test 11/27/16 05:22 11/27/16 06:33 11/27/16 08:09 White Blood Count 16.40 K/uL Red Blood Count 2.54 M/uL Hemoglobin 7.7 g/dL Hematocrit 23.5 % Mean Corpuscular Volume 92.5 fL Mean Corpuscular Hemoglobin 30.3 pg Mean Corpuscular Hemoglobin Concent 32.8 g/dl Platelet Count 79 K/uL Neutrophils (%) (Auto) 82.6 % Lymphocytes (%) (Auto) 9.8 % Monocytes (%) (Auto) 6.6 % Eosinophils (%) (Auto) 0.7 % Basophils (%) (Auto) 0.1 % Neutrophils # (Auto) 13.55 K/uL Lymphocytes # (Auto) 1.60 K/uL Monocytes # (Auto) 1.09 K/uL Eosinophils # (Auto) 0.11 K/uL Basophils # (Auto) 0.01 K/uL RDW Standard Deviation 75.3 fL RDW Coefficient of Variation 22.6 % Immature Granulocyte % (Auto) 0.2 % Immature Granulocyte # (Auto) 0.04 K/uL Platelet Estimate DECREASED Large Platelets 1+ Anisocytosis PRESENT Prothrombin Time 15.1 SECONDS Prothromb Time International Ratio 1.4 Sodium Level 139 mmol/L Potassium Level 4.0 mmol/L Chloride Level 102 mmol/L Carbon Dioxide Level 24 mmol/L Anion Gap 13.0 mmol/L Blood Urea Nitrogen 99 mg/dl Creatinine 5.20 mg/dl Est Creatinine Clear Calc Drug Dose 9.3 ml/min Estimated GFR () 8.6 Estimated GFR (Non- 7.5 BUN/Creatinine Ratio 19.1 Random Glucose 147 mg/dl Calcium Level 8.8 mg/dl Bedside Glucose 164 mg/dl
[2016-11-27] MEDS: CHOLESTYRAMINE LIGHT 4 GM PKT PO SCH ×2 (10:00→21:07)
[2016-11-27 11:19] LABS: HEPATITIS B AB NEG
[2016-11-27] MEDS ORDERED: MoRPHine SULFATE 4 MG/ML 1 ML CARP\\VIAL IV PRN (11:45)
[2016-11-27] MEDS: PANTOprazole SOD 40 MG TAB PO SCH (12:04)
[2016-11-27] MEDS: POT PHOSPHATE MONOBASIC W/ SOD TAB PO SCH ×2 (12:04→20:58)
--- NOTE | 2016-11-27 18:34 | Progress Note ---
Internal Med Progress Note Date of Service: Nov 27, 2016. Provider Documentation: SUBJECTIVE: s/p initiation of dialysis patient complained of right sided chest pain going to back but then resolved afebrile no sob no nausea hemodynamics stable currently OBJECTIVE: Vital Signs-as noted below Exam: General-alert and awake. ENT-normal hearing Neck-no neck masses Lungs-cta b/l no wheezing or crackles Heart-s1 and s2 heard regular rhythm no murmurs Abdomen-soft bowel sounds present non tender no distension Extremities-no edema no erythema Neuro-alert and oriented moves extremities Lab data as noted below. ASSESSMENT & PLAN: This is a 76 year old female with a PMH of CKD stage IV, DM2, HTN, HLD, GERD, hiatal hernia, MORRISON cirrhosis presented with a fall and found to have elevated troponin and creatinine levels ACUTE HYPOXIC RESPIRATORY FAILURE SECONDARY TO RIGHT PLEURAL EFFUSION POSSIBLE ASPIRATION PULMONARY EDEMA s/p Thoracentesis 11/23/[address] Phoenix drained 800cc PF studies ordered on Zosyn IV Day 10/19- will stop in am Speech Therapy Eval: Dental soft, slippery diet received Solumedrol 40mg IV bid received on Lasix 40mg IV + albumin crea still rising s/p right IJ tunnel catheter nephrology initialed dialyses will monitor ACUTE RENAL FAILURE ON Chronic Kidney Disease stage IV creatinine on admission 2.5 Creatine on 11/01/16 was 1.7 Nephrology on board received Lasix 40mg IV + albumin BID crea still rising HD as above MORRISON cirrhosis with some pleural effusion, likely hepatic hydrothorax GI reconsulted Liver US to quantify ascites: minimal repeat liver US: small to moderate ascites monitor for progression, may need Paracentesis Elevated Troponin Level NSTEMI mostly demand ischemia from hypoxia Possible related to recent fall and elevated creatine no chest pain, no EKG changes, no significant findings on echo Mechanical Fall in the setting of Orthostatic Hypotension Norvasc was discontinued Midodrine was discontinued due to elevated BP Continue PT/OT accepted to SNF Hypotension BP has been stable Midodrine was discontinued Thrombocytopenia Related to MORRISON ascites Platelet 92 Depression/Anxiety Prozac was discontinued on Remeron stable Hiatal Hernia/GERD nonsurgical continue PPI ada accommodation consultant consulted Boost BID added as per ada accommodation consultant DM2 diet-controlled last Ha1c ~ 6.4% on 09/29 DVT ppx SCDs ambulation due to low plt, no anticoagulation CODE STATUS FULL CODE DISPOSITION to be determined pt/ot social service for d/c planning Vital Signs: Date Time Temp Pulse Resp B/P (MAP) Pulse Ox O2 Delivery O2 Flow Rate FiO2 11/27/16 16:00 Nasal Cannula 2.0 11/27/16 15:14 36.8 108 14 128/51 (76) 98 Oxymask 11/27/16 15:10 107 20 96 Nasal Cannula 2.0 11/27/16 11:25 Nasal Cannula 2.0 11/27/16 11:20 36.7 102 99/41 (60) 11/27/16 11:15 100 81/58 11/27/16 11:08 100 20 99 Nasal Cannula 2.0 11/27/16 11:04 36.7 104 20 78/66 (70) 99 11/27/16 11:00 105 97/78 11/27/16 10:45 109 98/73 11/27/16 10:30 104 112/76 11/27/16 10:15 108 123/86 11/27/16 10:00 109 116/72 11/27/16 10:00 105 16 125/70 (88) 96 Nasal Cannula 2.0 11/27/16 09:45 106 105/70 11/27/16 09:30 104 16 105/70 (82) 96 Nasal Cannula 2.0 11/27/16 09:30 105 108/53 11/27/16 09:15 104 16 105/72 (83) 96 Nasal Cannula 2.0 11/27/16 09:15 104 118/74 11/27/16 09:00 103 16 114/72 (86) 96 Nasal Cannula 2.0 11/27/16 09:00 36.5 104 116/70 (85) 11/27/16 08:30 Nasal Cannula 2.0 11/27/16 08:30 36.9 107 16 118/47 (70) 96 Nasal Cannula 2.0 11/27/16 08:19 101 16 103/67 99 Mask 6 11/27/16 04:01 Nasal Cannula 2.0 Humidified Oxygen 11/27/16 04:00 37.1 102 19 120/46 (70) 96 Nasal Cannula 2.0 11/27/16 03:23 101 16 97 Nasal Cannula 2.0 11/27/16 00:05 Nasal Cannula 2.0 Humidified Oxygen 11/27/16 00:02 37.0 101 19 120/54 (76) 95 Nasal Cannula 2.0 11/27/16 00:00 100 16 94 Nasal Cannula 2.0 11/26/16 20:00 Nasal Cannula 2.0 Humidified Oxygen 11/26/16 19:53 102 18 94 Nasal Cannula 2.0 11/26/16 19:06 37.0 111 14 131/58 (82) 95 Nasal Cannula 1.5 Lab Results: Results Past 24 Hours Test 11/26/16 20:00 11/27/16 02:10 11/27/16 05:22 11/27/16 06:33 Range/Units Bedside Glucose 188 193 164 70-90 mg/dl White Blood Count 16.40 4.8-10.8 K/uL Red Blood Count 2.54 4.2-5.4 M/uL Hemoglobin 7.7 12.0-16.0 g/dL Hematocrit 23.5 37-47 % Mean Corpuscular Volume 92.5 80-100 fL Mean Corpuscular Hemoglobin 30.3 25-34 pg Mean Corpuscular Hemoglobin Concent 32.8 32-36 g/dl Platelet Count 79 130-400 K/uL Neutrophils (%) (Auto) 82.6 % Lymphocytes (%) (Auto) 9.8 % Monocytes (%) (Auto) 6.6 % Eosinophils (%) (Auto) 0.7 % Basophils (%) (Auto) 0.1 % Neutrophils # (Auto) 13.55 1.4-6.5 K/uL Lymphocytes # (Auto) 1.60 1.2-3.4 K/uL Monocytes # (Auto) 1.09 0.11-0.59 K/uL Eosinophils # (Auto) 0.11 0-0.5 K/uL Basophils # (Auto) 0.01 0-0.2 K/uL RDW Standard Deviation 75.3 36.4-46.3 fL RDW Coefficient of Variation 22.6 11.5-14.5 % Immature Granulocyte % (Auto) 0.2 % Immature Granulocyte # (Auto) 0.04 0.00-0.02 K/uL Platelet Estimate DECREASED Large Platelets 1+ Anisocytosis PRESENT Prothrombin Time 15.1 9.0-12.0 SECONDS Prothromb Time International Ratio 1.4 0.9-1.1 Sodium Level 139 136-145 mmol/L Potassium Level 4.0 3.5-5.1 mmol/L Chloride Level 102 98-107 mmol/L Carbon Dioxide Level 24 21-32 mmol/L Anion Gap 13.0 3-11 mmol/L Blood Urea Nitrogen 99 7-18 mg/dl Creatinine 5.20 0.60-1.20 mg/dl Est Creatinine Clear Calc Drug Dose 9.3 ml/min Estimated GFR () 8.6 Estimated GFR (Non- 7.5 BUN/Creatinine Ratio 19.1 10-20 Random Glucose 147 70-99 mg/dl Calcium Level 8.8 8.5-10.1 mg/dl Test 11/27/16 10:28 11/27/16 11:08 11/27/16 16:27 Range/Units Hepatitis B Surface Antigen NEG NEG Hepatitis B Surface Antibody NEG Bedside Glucose 134 190 70-90 mg/dl
[2016-11-27] MEDS: ATORVASTATIN 10 MG TAB PO SCH (20:57)
[2016-11-27] MEDS: MIRTAZAPINE TAB 15 MG TAB PO SCH (20:58)
[2016-11-27] MEDS: BENZONATATE 100MG CAP PO PRN (20:58)
[2016-11-28] VITALS (29 sets, daily range): BP systolic 100–145; BP diastolic 48–62; PULSE 91–111; TEMP 36.5–37.1; O2SAT 90–100
[2016-11-28] MEDS: IPRATROPIUM BROMIDE NEB SOLN 0.02% 2.5 ML VIAL INH SCH ×6 (03:10→23:15)
[2016-11-28] MEDS: LEVALBUTEROL 0.63MG/3 ML NEB INH SCH ×6 (03:11→23:15)
--- NOTE | 2016-11-28 05:33 | Clinical Documentation Query ---
CLINICAL DOCUMENTATION QUERY Query #1/2 On AM of 11/20 patient had an episode of respiratory failure 2/2 possible aspirating after taking some pills. In your clinical opinion is this patient being managed for: ( ) Aspiration pneumonitis causing acute respiratory failure on AM of 11/20 treated with IV Zosyn and Nebs. ( ) Other explanation of clinical findings (Please Explain) ( ) Unable to determine (Please Define) ( ) Need to Discuss ( ) Not Agree The medical record reflects the following clinical findings, treatment, and risk factors. Clinical Indicators: Reports of coughing, wheezing after taking pills. Described as tachypneic with accessory muscle use. CXR showed at that time a interval development of left midlung zone peripheral airspace opacities, likely infectious/inflammatory. Treatment: O2 via mask, IV Zosyn, IV Cefazolin Risk Factors:Age, deconditioned state Query #2/2 Threw out this patient's stay this patient has been treated with IV Diuretics, IV Albumin, and now hemodialysis. Patient by CXR is showing pulmonary edema and bibasilar rales by exam. In your clinical opinion is this patient being managed for: ( ) Acute diastolic (preserved EF) heart failure ( ) Other explanation of clinical findings (Please Explain) ( ) Unable to determine (Please Define) ( ) Need to Discuss ( ) Not Agree The medical record reflects the following clinical findings, treatment, and risk factors. Clinical Indicators: As above. Echo showed EF 60-65% with grade I diastolic dysfunction Treatment: Echocardiogram, ECG, serial cardiac markers, IV Lasix and Albumin, IV Lasix, HD Risk Factors: Age, ROSANGELA requiring HD, HTN, Please clarify and document your clinical opinion in the progress notes and discharge summary. Terms such as "probable", "suspected", "likely", "questionable", "possible", or "still to be ruled out" are acceptable. IF IN AGREEMENT, YOU MUST DOCUMENT ABOVE DIAGNOSTIC STATEMENT IN DAILY PROGRESS NOTES AND DISCHARGE SUMMARY. This document is not part of the patient's record. Thank You, Osmar Lofton RN [phone]
[2016-11-28 06:31] LABS: MEAN CORPUSCULAR HGB CONC 33.3 g/dl (32-36)
[2016-11-28 06:46] LABS: HEMATOCRIT 23.7 % (37-47); MEAN CELL VOLUME 91.9 fL (80-100); MEAN CORPUSCULAR HEMOGLOBIN 30.6 pg (25-34); RED BLOOD COUNT 2.58 M/uL (4.2-5.4)
[2016-11-28] MEDS: BOOST GLUCOSE CONTROL PO SCH ×4 (07:00→20:54)
[2016-11-28 07:13] LABS: MEAN PLATELET VOLUME 11.4 fL (7.4-10.4); PLATELET COUNT 85 K/uL (130-400)
[2016-11-28 07:14] LABS: FERRITIN 123.2 ng/ml (8.0-388.0)
[2016-11-28 07:18] LABS: ANISOCYTOSIS PRESENT; BASO % 0.1 %; BASO ABS # 0.02 K/uL (0-0.2); COMPLETE YES; EOS % 0.6 %; IG% 0.4 %; LARGE PLATELETS 1+; LYMPH % 7.7 %; LYMPH ABS # 1.21 K/uL (1.2-3.4); MONO % 7.6 %; NEUT % 83.6 %; PLT ESTIMATE DECREASED; POIKILOCYTOSIS PRESENT; TARGET CELLS 1+
[2016-11-28] MEDS: PANTOprazole SOD 40 MG TAB PO SCH (07:57)
[2016-11-28] MEDS: DOCUSATE SODIUM 100 MG CAP PO SCH ×2 (07:57→20:49)
[2016-11-28] MEDS: POT PHOSPHATE MONOBASIC W/ SOD TAB PO SCH ×2 (07:57→20:49)
[2016-11-28] MEDS: INSULIN GLARGINE SOLOSTAR 100 UNITS/ML 3 ML PEN SC SCH ×2 (07:59→21:20)
[2016-11-28] MEDS: INSULIN ASPART 100 UNITS/ML 3 ML PEN SC SCH ×4 (08:02→21:19)
--- NOTE | 2016-11-28 08:39 | Nephrology Progress Note ---
Nephrology Progress Note Date of Service: Nov 28, 2016. Subjective 76 yo female with arturo in setting of cirrhosis with aspiration pneumonia. underwent tunneled line yesterday and had 1600cc uf removed on dialysis. towards end of dialysis, pt developed chest pain with low blood pressures, given fluid back and taken off machine and bp improved and chest pain improved. pt woke up early this morning and felt good. ate her breakfast. appears to be breathing better. Objective Date Time Temp Pulse Resp B/P (MAP) Pulse Ox O2 Delivery O2 Flow Rate FiO2 11/28/16 07:43 93 18 90 Room Air 11/28/16 07:37 36.9 99 20 125/56 (79) 90 Room Air 11/28/16 04:00 93 Room Air 11/28/16 04:00 36.5 103 21 139/53 (81) 93 Room Air 11/28/16 03:11 104 18 90 Room Air 11/28/16 00:00 36.9 97 19 131/48 (75) 90 Room Air 11/27/16 23:59 Room Air 11/27/16 23:08 97 20 90 Room Air 11/27/16 20:00 Room Air 11/27/16 19:41 101 20 98 Nasal Cannula 2.0 11/27/16 19:09 36.4 106 22 124/53 (76) 92 Nasal Cannula 2.0 11/27/16 16:00 Nasal Cannula 2.0 11/27/16 15:14 36.8 108 14 128/51 (76) 98 Oxymask 11/27/16 15:10 107 20 96 Nasal Cannula 2.0 11/27/16 11:25 Nasal Cannula 2.0 11/27/16 11:20 36.7 102 99/41 (60) 11/27/16 11:15 100 81/58 11/27/16 11:08 100 20 99 Nasal Cannula 2.0 11/27/16 11:04 36.7 104 20 78/66 (70) 99 11/27/16 11:00 105 97/78 11/27/16 10:45 109 98/73 11/27/16 10:30 104 112/76 11/27/16 10:15 108 123/86 11/27/16 10:00 109 116/72 11/27/16 10:00 105 16 125/70 (88) 96 Nasal Cannula 2.0 11/27/16 09:45 106 105/70 11/27/16 09:30 104 16 105/70 (82) 96 Nasal Cannula 2.0 11/27/16 09:30 105 108/53 11/27/16 09:15 104 16 105/72 (83) 96 Nasal Cannula 2.0 11/27/16 09:15 104 118/74 11/27/16 09:00 103 16 114/72 (86) 96 Nasal Cannula 2.0 11/27/16 09:00 36.5 104 116/70 (85) Physical Exam: General-aaox3 Eyes-no scleral icterus ENT-mmm Neck-supple Lungs-decreased at bases, no wheezing heard Heart-tachycardia Abdomen-bs+ s/+distention Extremities-+2 edema-pitting Neuro-nonfocal Current Inpatient Medications Medications (Trade) Dose Ordered Sig/Edilson Route Start Time Stop Time Status Last Admin Dose Admin Albuterol (Ventolin Hfa Inhaler) 2 puffs Q4 PRN INH 11/12/16 22:00 12/12/16 21:59 Atorvastatin Calcium (Lipitor Tab) 10 mg HS PO 11/13/16 21:00 12/13/16 20:59 11/27/16 20:57 10 MG Cholestyramine Resin (Questran Powder Light) 4 gm BID@, PO 11/12/16 22:00 12/12/16 21:59 11/25/16 10:14 4 GM Ondansetron HCl (Zofran Tab) 4 mg Q6H PRN PO 11/12/16 22:00 12/12/16 21:59 11/25/16 09:36 4 MG Pantoprazole Sodium (Protonix Tab) 40 mg DAILY PO 11/13/16 09:00 12/13/16 08:59 11/28/16 07:57 40 MG Buspirone HCl (Buspar Tab) 10 mg TID PO 11/13/16 09:00 12/13/16 08:59 11/28/16 07:57 10 MG Loperamide HCl (Imodium Cap) 2 mg Q12H PRN PO 11/12/16 22:00 12/12/16 21:59 11/25/16 07:59 2 MG Potassium/ Phosphorus/Sodium (Phospha 250 Neutral 155-852-130 Mg) 1 tab BID PO 11/13/16 09:00 12/13/16 08:59 11/28/16 07:57 1 TAB Mirtazapine (Remeron Tab) 15 mg HS PO 11/13/16 21:00 12/13/16 20:59 11/27/16 20:58 15 MG Glucose (Glucose 40% Gel) 15-30 GRAMS 15 GRAMS... UD PRN PO 11/17/16 12:45 12/17/16 12:44 Glucose (Glucose Chew Tab) 4-8 Tablets 4 Tabl... UD PRN PO 11/17/16 12:45 12/17/16 12:44 Dextrose (Dextrose 50% 50ML Syringe) 25-50ML OF 50% DW IV FOR... UD PRN IV 11/17/16 12:45 12/17/16 12:44 Glucagon (Glucagon Inj) 1 mg UD PRN SQ 11/17/16 12:45 12/17/16 12:44 Polyethylene (Miralax Powder Packet) 17 gm DAILY PRN PO 11/17/16 12:45 12/17/16 12:44 Docusate Sodium (coLACE CAP) 100 mg BID PO 11/17/16 21:00 12/17/16 20:59 11/28/16 07:57 100 MG Al Hydroxide/Mg Hydroxide (Maalox Susp) 15 ml Q4H PRN PO 11/21/16 21:45 12/21/16 21:44 11/21/16 21:56 15 ML Ipratropium [place] (Atrovent 0.02% 0.5MG/2.5ML Neb) 0.5 mg Q4R INH 11/22/16 12:00 12/22/16 11:59 11/28/16 07:43 0.5 MG Miscellaneous Information (Consult Glycemic Management Pharmacy) 1 ea UD PRN N/A 11/23/16 09:47 12/23/16 09:46 Enteral Nutritional Formula (Boost Glucose Control) 0.5 can ACHS PO 11/23/16 11:00 12/23/16 10:59 11/28/16 07:00 0.5 CAN Insulin Glargine (Lantus Solostar Pen) SEE PROTOCOL BID SC 11/24/16 09:00 12/24/16 08:59 11/28/16 07:59 12 UNITS Insulin Aspart (novoLOG ASPART) SLIDING SCALE ACHS SC 11/24/16 21:00 12/24/16 20:59 11/28/16 08:02 13 UNITS Benzonatate (Tessalon Perles Cap) 100 mg TID PRN PO 11/24/16 15:00 12/24/16 14:59 11/27/16 20:58 100 MG Levalbuterol (Xopenex 0.63 Mg/ 3 Ml Neb) 0.63 mg Q4R INH 11/25/16 12:00 12/22/16 11:59 11/28/16 07:43 0.63 MG Oxymetazoline HCl (Afrin 0.05% Nasal [place]) 1 sprays Q6H PRN NA 11/25/16 11:00 12/25/16 10:59 Morphine Sulfate (MoRPHine SULFATE INJ) 3 mg Q3HWA PRN IV 11/27/16 11:45 12/11/16 11:44 Albumin Human (Albumin 25%) 12.5 gm TODAY@0900 IV 11/28/16 09:00 11/28/16 18:00 Last 24 Hours Test 11/27/16 10:28 11/27/16 11:08 11/27/16 16:27 11/27/16 19:50 Hepatitis B Surface Antigen NEG Hepatitis B Surface Antibody NEG Bedside Glucose 134 mg/dl 190 mg/dl 197 mg/dl Test 11/28/16 05:49 11/28/16 06:49 White Blood Count 15.70 K/uL Red Blood Count 2.58 M/uL Hemoglobin 7.9 g/dL Hematocrit 23.7 % Mean Corpuscular Volume 91.9 fL Mean Corpuscular Hemoglobin 30.6 pg Mean Corpuscular Hemoglobin Concent 33.3 g/dl Platelet Count 85 K/uL Mean Platelet Volume 11.4 fL Neutrophils (%) (Auto) 83.6 % Lymphocytes (%) (Auto) 7.7 % Monocytes (%) (Auto) 7.6 % Eosinophils (%) (Auto) 0.6 % Basophils (%) (Auto) 0.1 % Neutrophils # (Auto) 13.11 K/uL Lymphocytes # (Auto) 1.21 K/uL Monocytes # (Auto) 1.20 K/uL Eosinophils # (Auto) 0.09 K/uL Basophils # (Auto) 0.02 K/uL RDW Standard Deviation 73.5 fL RDW Coefficient of Variation 22.7 % Immature Granulocyte % (Auto) 0.4 % Immature Granulocyte # (Auto) 0.07 K/uL Platelet Estimate DECREASED Large Platelets 1+ Poikilocytosis PRESENT Anisocytosis PRESENT Target Cells 1+ Iron Level 27 mcg/dl Total Iron Binding Capacity 102 mcg/dl Transferrin 73 mg/dl Transferrin % Saturation 27 % Ferritin 123.2 ng/ml Bedside Glucose 215 mg/dl Assessment & Plan arturo on ckd-underwent dialysis yesterday and will plan on dialysis today with albumin with a goal of one liter uf. still doing slow dialysis with less time and less blood flow as pt gets used to dialysis.
[2016-11-28] MEDS ORDERED: ALBUMIN HUMAN 25% 12.5 GM/50 ML VIAL IV SCH (09:00)
[2016-11-28] MEDS: CHOLESTYRAMINE LIGHT 4 GM PKT PO SCH ×2 (10:00→21:20)
--- NOTE | 2016-11-28 12:47 | Pharmacy Progress Note ---
Glycemic Control Progress Note Date of Service Nov 28, 2016. Scope Glycemic Pharmacist consulted for glycemic control to write orders per [facility] inpatient glycemic control protocol. Objective Accuchecks BSG (last 24hrs): Test 11/27/16 16:27 11/27/16 19:50 11/28/16 06:49 11/28/16 11:25 Bedside Glucose 190 mg/dl (70-90) 197 mg/dl (70-90) 215 mg/dl (70-90) 96 mg/dl (70-90) HbA1c: Test 11/18/16 06:40 Hemoglobin A1c 6.8 % (4.5-5.6) H Recent Pertinent Medications The patient is currently receiving: * Basal insulin: Lantus 12 units every 12 hours * Correctional Insulin: Novolog Correction per scale ACHS Goal Range: Low 110 mg/dL - High 140 mg/dL Correction Factor: 25 mg/dL/unit * Prandial insulin: Per carb ratio of 1 unit per 8 grams CHO consumed Outpatient Anti-Diabetic Meds DIET CONTROLLED Assessment & Plan ASSESSMENT: * 76 yo F s/p TDC yesterday, BSGs ranging 134-193 over the past 24 hours * Initially pharmacy consulted to help managed steroid-induced hyperglycemia in a "diet-controlled" diabetic * However, since the discontinuation of steroids nearly 72 hrs ago, BSGs have remained elevated and patient continues to require basal/bolus insulin * Yesterday I did not titrate insulin since patient was going to receiving HD for the first time and I did not know how insulin sensitivity was going to be effected * Fasting BSG this AM 215 so patient still requiring insulin and needing tighter adjustments * I tightened Novolog this AM and plan to increase Lantus by 20% starting tonight * Lunch BSG responded well and came down to 96 * I am less concerned that coverage is too tight as patient's fasting BSG was so elevated that she received more insulin than she normally would on this scale * Reassess tomorrow morning as patient is to have dialysis again today PLAN FOR INPATIENT GLYCEMIC CONTROL: * Increase Lantus to 14 units BID * Tighten correction factor to 20 mg/dl/unit * Tighten carb ratio to 1 unit per 7 grams CHO consumed * Continue goal range of Low 110 mg/dL - High 140 mg/dL * Please note that the plan above was derived based on current level of insulin resistance and hospital stress. These recommendations are appropriate for inpatient admission only. Plan of care upon discharge will need to be reassessed to avoid potential outpatient hypo/hyperglycemia. Thank you.
--- NOTE | 2016-11-28 17:42 | Progress Note ---
Internal Med Progress Note Date of Service: Nov 28, 2016. Provider Documentation: SUBJECTIVE: sob was better in the morning but after moving around feeling little more sob denies chest pain afebrile no nausea OBJECTIVE: Vital Signs-as noted below Exam: General-alert and awake. ENT-normal hearing Neck-no neck masses Lungs-cta b/l no wheezing or crackles Heart-s1 and s2 heard regular rhythm no murmurs Abdomen-soft bowel sounds present non tender no distension Extremities-no edema no erythema Neuro-alert and oriented moves extremities Lab data as noted below. ASSESSMENT & PLAN: This is a 76 year old female with a PMH of CKD stage IV, DM2, HTN, HLD, GERD, hiatal hernia, MORRISON cirrhosis presented with a fall and found to have elevated troponin and creatinine levels ACUTE HYPOXIC RESPIRATORY FAILURE SECONDARY TO RIGHT PLEURAL EFFUSION POSSIBLE ASPIRATION Pneumonitis PULMONARY EDEMA pleural effusion and pulmonary edema mostly from renal failure and liver cirrhosis s/p Thoracentesis 11/23/[address] Phoenix drained 800cc PF studies ordered on Zosyn IV Day 10/19- will stop in am Speech Therapy Eval: Dental soft, slippery diet received Solumedrol 40mg IV bid received on Lasix 40mg IV + albumin crea still rising s/p right IJ tunnel catheter nephrology initialed dialyses 11/27/16 will monitor ACUTE RENAL FAILURE ON Chronic Kidney Disease stage IV creatinine on admission 2.5 Creatine on 11/01/16 was 1.7 Nephrology on board received Lasix 40mg IV + albumin BID crea still rising Initiated on HD as above MORRISON cirrhosis with some pleural effusion, likely hepatic hydrothorax GI reconsulted Liver US to quantify ascites: minimal repeat liver US: small to moderate ascites monitor for progression, may need Paracentesis will monitor Elevated Troponin Level NSTEMI mostly demand ischemia from hypoxia Possible related to recent fall and elevated creatine no chest pain, no EKG changes, no significant findings on echo Mechanical Fall in the setting of Orthostatic Hypotension Norvasc was discontinued Midodrine was discontinued due to elevated BP Continue PT/OT accepted to SNF Hypotension BP has been stable Midodrine was discontinued will monitor Thrombocytopenia Related to MORRISON ascites Platelet 85 Depression/Anxiety Prozac was discontinued on Remeron stable Hiatal Hernia/GERD nonsurgical continue PPI agricultural chemicals inspector consulted Boost BID added as per agricultural chemicals inspector DM2 diet-controlled last Ha1c ~ 6.4% on 09/29 DVT ppx SCDs ambulation due to low plt, no anticoagulation CODE STATUS FULL CODE DISPOSITION to be determined pt/ot social service for d/c planning Vital Signs: Date Time Temp Pulse Resp B/P (MAP) Pulse Ox O2 Delivery O2 Flow Rate FiO2 11/28/16 16:13 94 Nasal Cannula 2.0 11/28/16 15:40 36.6 107 20 136/57 (83) 99 11/28/16 15:32 107 18 98 Room Air 11/28/16 12:35 36.6 96 113/55 (74) 11/28/16 12:00 103 100/54 11/28/16 11:52 36.6 104 16 116/53 (74) 100 Room Air 11/28/16 11:45 104 116/53 11/28/16 11:30 101 109/57 11/28/16 11:26 103 18 94 Room Air 11/28/16 11:15 100 114/51 11/28/16 11:00 101 108/56 11/28/16 10:45 102 113/58 11/28/16 10:30 104 111/50 11/28/16 10:15 102 108/50 11/28/16 10:00 104 118/56 11/28/16 09:45 103 133/57 11/28/16 09:40 103 132/57 11/28/16 09:30 36.5 108 119/54 (75) 11/28/16 08:00 96 Room Air 11/28/16 07:43 93 18 90 Room Air 11/28/16 07:37 36.9 99 20 125/56 (79) 90 Room Air 11/28/16 04:00 93 Room Air 11/28/16 04:00 36.5 103 21 139/53 (81) 93 Room Air 11/28/16 03:11 104 18 90 Room Air 11/28/16 00:00 36.9 97 19 131/48 (75) 90 Room Air 11/27/16 23:59 Room Air 11/27/16 23:08 97 20 90 Room Air 11/27/16 20:00 Room Air 11/27/16 19:41 101 20 98 Nasal Cannula 2.0 11/27/16 19:09 36.4 106 22 124/53 (76) 92 Nasal Cannula 2.0 Lab Results: Results Past 24 Hours Test 11/27/16 19:50 11/28/16 05:49 11/28/16 06:49 11/28/16 11:25 Range/Units Bedside Glucose 197 215 96 70-90 mg/dl White Blood Count 15.70 4.8-10.8 K/uL Red Blood Count 2.58 4.2-5.4 M/uL Hemoglobin 7.9 12.0-16.0 g/dL Hematocrit 23.7 37-47 % Mean Corpuscular Volume 91.9 80-100 fL Mean Corpuscular Hemoglobin 30.6 25-34 pg Mean Corpuscular Hemoglobin Concent 33.3 32-36 g/dl Platelet Count 85 130-400 K/uL Mean Platelet Volume 11.4 7.4-10.4 fL Neutrophils (%) (Auto) 83.6 % Lymphocytes (%) (Auto) 7.7 % Monocytes (%) (Auto) 7.6 % Eosinophils (%) (Auto) 0.6 % Basophils (%) (Auto) 0.1 % Neutrophils # (Auto) 13.11 1.4-6.5 K/uL Lymphocytes # (Auto) 1.21 1.2-3.4 K/uL Monocytes # (Auto) 1.20 0.11-0.59 K/uL Eosinophils # (Auto) 0.09 0-0.5 K/uL Basophils # (Auto) 0.02 0-0.2 K/uL RDW Standard Deviation 73.5 36.4-46.3 fL RDW Coefficient of Variation 22.7 11.5-14.5 % Immature Granulocyte % (Auto) 0.4 % Immature Granulocyte # (Auto) 0.07 0.00-0.02 K/uL Platelet Estimate DECREASED Large Platelets 1+ Poikilocytosis PRESENT Anisocytosis PRESENT Target Cells 1+ Iron Level 27 35-150 mcg/dl Total Iron Binding Capacity 102 250-450 mcg/dl Transferrin 73 200-360 mg/dl Transferrin % Saturation 27 15-50 % Ferritin 123.2 8.0-388.0 ng/ml Test 11/28/16 16:21 Range/Units Bedside Glucose 222 70-90 mg/dl
--- NOTE | 2016-11-28 19:31 | Pulmonology Progress Note ---
Pulmonary Progress Note Date of Service Nov 28, 2016. Attending Dr. Clark Subjective Patient seen and examined. She feels in better spirits today. Much better than yesterday. She still feels short of breath with minimal exertion. Using flutter valve. Objective VS reviewed. O/E: Gen: AAOx3, NAD, speaking in full sentences. No acute respiratory distress. No use of accessory muscles of respiration. HEENT: AT/NC, PERRL, EOMI, ears--hearing normal, nose-normal nasal turbinates; there is a nasal canula in place, throat--no tonsillar exudates CVS: S1, S2, tachycardic Lungs: diminished breath sounds b/l, bibasilar crackles, chest wall right permacath in place. Abd: distended, nontender, BS+ Ext: pitting edema up to knees bilaterally about +3, no cyanosis or clubbing noted Clark catheter in place Labs reviewed and significant for creatinine is 5.20 on 11/27/2016. No repeat chemistry done today Imaging reviewed. Venous Doppler b/l LE: 10/26/2016No DVT within right or left lower extremity. CXR 11/26/2016--FINDINGS: Mild improvement of aeration the hemithoraces bilaterally. Persistent consolidative/atelectatic changes left base. Improved perihilar infiltrates. Chronic elevation left hemidiaphragm. Trace pleural fluid right base improved. IMPRESSION: Improved exam. Mild residual bibasilar consolidative/effusion-type change. Abdominal U/S 11/26/2016 IMPRESSION: 1. Small to moderate ascites, increased since exam of November 20, 2016. 2. Bilateral pleural effusions, right larger than left. CT Chest 11/20/2016 IMPRESSION: 1. Moderate right pleural effusion and small left pleural effusion with basilar atelectasis 2. Groundglass left upper lobe opacities, suspicious for a pneumonitis. Clinical and imaging follow-up is recommended 3. Large hiatal hernia 4. Ascites. Splenomegaly Medications from a respiratory standpoint include: Xopenex, Atrovent, Tessalon Perles, Zosyn 3.375 mg and Lasix 80 mg BID. Assessment & Plan 1. Transudative pleural effusion, likely secondary to underlying renal disease or liver disease. 2. Asthma by history. 3. Possible aspiration pneumonia left upper lobe, CAT scan report. 4. RUL 1.5 cm ground glass nodule 5. Chronic kidney disease stage IV. 6. Large hiatal hernia. 7. Nonalcoholic steatohepatitis. 8. Splenomegaly. Patient has failed diuretic treatment. Hemodialysis started on 11/27/2016. No fluid was removed. She had 1L of fluid removed today. Her oxygen requirements are minimal. Continue to keep her SaO2>92%. Her CXR from 11/26/2016 showed interval improvement of right pleural effusion. Pathology is negative for malignancy. Cultures are negative thus far. AFB is still pending. Pleural effusions are likely from underlying kidney and liver disease. I would continue with albuterol and xopenex for bronchodilatory agents. CTA is negative for PE. Continue with Zosyn for aspiration pneumonia to complete total of 7 days. Continue with flutter valve. I would recommend interval follow up of CT as an outpatient to evaluate for resolution in a 6 weeks. Consider PT/OT evaluation. Will sign off case today. Please call me if you have any further questions or concerns. Data Medications: Current Inpatient Medications Medications (Trade) Dose Ordered Sig/Edilson Route Start Time Stop Time Status Last Admin Dose Admin Albuterol (Ventolin Hfa Inhaler) 2 puffs Q4 PRN INH 11/12/16 22:00 12/12/16 21:59 Atorvastatin Calcium (Lipitor Tab) 10 mg HS PO 11/13/16 21:00 12/13/16 20:59 11/27/16 20:57 10 MG Cholestyramine Resin (Questran Powder Light) 4 gm BID@, PO 11/12/16 22:00 12/12/16 21:59 11/28/16 10:00 4 GM Ondansetron HCl (Zofran Tab) 4 mg Q6H PRN PO 11/12/16 22:00 12/12/16 21:59 11/25/16 09:36 4 MG Pantoprazole Sodium (Protonix Tab) 40 mg DAILY PO 11/13/16 09:00 12/13/16 08:59 11/28/16 07:57 40 MG Buspirone HCl (Buspar Tab) 10 mg TID PO 11/13/16 09:00 12/13/16 08:59 11/28/16 13:34 10 MG Loperamide HCl (Imodium Cap) 2 mg Q12H PRN PO 11/12/16 22:00 12/12/16 21:59 11/25/16 07:59 2 MG Potassium/ Phosphorus/Sodium (Phospha 250 Neutral 155-852-130 Mg) 1 tab BID PO 11/13/16 09:00 12/13/16 08:59 11/28/16 07:57 1 TAB Mirtazapine (Remeron Tab) 15 mg HS PO 11/13/16 21:00 12/13/16 20:59 11/27/16 20:58 15 MG Glucose (Glucose 40% Gel) 15-30 GRAMS 15 GRAMS... UD PRN PO 11/17/16 12:45 12/17/16 12:44 Glucose (Glucose Chew Tab) 4-8 Tablets 4 Tabl... UD PRN PO 11/17/16 12:45 12/17/16 12:44 Dextrose (Dextrose 50% 50ML Syringe) 25-50ML OF 50% DW IV FOR... UD PRN IV 11/17/16 12:45 12/17/16 12:44 Glucagon (Glucagon Inj) 1 mg UD PRN SQ 11/17/16 12:45 12/17/16 12:44 Polyethylene (Miralax Powder Packet) 17 gm DAILY PRN PO 11/17/16 12:45 12/17/16 12:44 Docusate Sodium (coLACE CAP) 100 mg BID PO 11/17/16 21:00 12/17/16 20:59 11/28/16 07:57 100 MG Al Hydroxide/Mg Hydroxide (Maalox Susp) 15 ml Q4H PRN PO 11/21/16 21:45 12/21/16 21:44 11/21/16 21:56 15 ML Ipratropium [place] (Atrovent 0.02% 0.5MG/2.5ML Neb) 0.5 mg Q4R INH 11/22/16 12:00 12/22/16 11:59 11/28/16 15:32 0.5 MG Miscellaneous Information (Consult Glycemic Management Pharmacy) 1 ea UD PRN N/A 11/23/16 09:47 12/23/16 09:46 Enteral Nutritional Formula (Boost Glucose Control) 0.5 can ACHS PO 11/23/16 11:00 12/23/16 10:59 8/16/17 16:15 0.5 CAN Insulin Glargine (Lantus Solostar Pen) SEE PROTOCOL BID SC 11/24/16 09:00 12/24/16 08:59 11/28/16 07:59 12 UNITS Insulin Aspart (novoLOG ASPART) SLIDING SCALE ACHS SC 11/24/16 21:00 12/24/16 20:59 11/28/16 18:14 11 UNITS Benzonatate (Tessalon Perles Cap) 100 mg TID PRN PO 11/24/16 15:00 12/24/16 14:59 11/27/16 20:58 100 MG Levalbuterol (Xopenex 0.63 Mg/ 3 Ml Neb) 0.63 mg Q4R INH 11/25/16 12:00 12/22/16 11:59 11/28/16 15:32 0.63 MG Oxymetazoline HCl (Afrin 0.05% Nasal Comfort) 1 sprays Q6H PRN NA 11/25/16 11:00 12/25/16 10:59 Morphine Sulfate (MoRPHine SULFATE INJ) 3 mg Q3HWA PRN IV 11/27/16 11:45 12/11/16 11:44 I & O: 24-Hour Column 11/29/16 07:59 Intake Total 200 ml Output Total 1100 ml Balance -900 ml Vital Signs: Date Time Temp Pulse Resp B/P (MAP) Pulse Ox O2 Delivery O2 Flow Rate FiO2 11/28/16 16:13 94 Nasal Cannula 2.0 11/28/16 15:40 36.6 107 20 136/57 (83) 99 11/28/16 15:32 107 18 98 Room Air 11/28/16 12:35 36.6 96 113/55 (74) 11/28/16 12:00 103 100/54 11/28/16 11:52 36.6 104 16 116/53 (74) 100 Room Air 11/28/16 11:45 104 116/53 11/28/16 11:30 101 109/57 11/28/16 11:26 103 18 94 Room Air 11/28/16 11:15 100 114/51 11/28/16 11:00 101 108/56 11/28/16 10:45 102 113/58 11/28/16 10:30 104 111/50 11/28/16 10:15 102 108/50 11/28/16 10:00 104 118/56 11/28/16 09:45 103 133/57 11/28/16 09:40 103 132/57 11/28/16 09:30 36.5 108 119/54 (75) 11/28/16 08:00 96 Room Air 11/28/16 07:43 93 18 90 Room Air 11/28/16 07:37 36.9 99 20 125/56 (79) 90 Room Air 11/28/16 04:00 93 Room Air 11/28/16 04:00 36.5 103 21 139/53 (81) 93 Room Air 11/28/16 03:11 104 18 90 Room Air 11/28/16 00:00 36.9 97 19 131/48 (75) 90 Room Air 11/27/16 23:59 Room Air 11/27/16 23:08 97 20 90 Room Air 11/27/16 20:00 Room Air 11/27/16 19:41 101 20 98 Nasal Cannula 2.0 Laboratory Results: Last 24 Hours Test 11/27/16 19:50 11/28/16 05:49 11/28/16 06:49 11/28/16 11:25 Bedside Glucose 197 mg/dl 215 mg/dl 96 mg/dl White Blood Count 15.70 K/uL Red Blood Count 2.58 M/uL Hemoglobin 7.9 g/dL Hematocrit 23.7 % Mean Corpuscular Volume 91.9 fL Mean Corpuscular Hemoglobin 30.6 pg Mean Corpuscular Hemoglobin Concent 33.3 g/dl Platelet Count 85 K/uL Mean Platelet Volume 11.4 fL Neutrophils (%) (Auto) 83.6 % Lymphocytes (%) (Auto) 7.7 % Monocytes (%) (Auto) 7.6 % Eosinophils (%) (Auto) 0.6 % Basophils (%) (Auto) 0.1 % Neutrophils # (Auto) 13.11 K/uL Lymphocytes # (Auto) 1.21 K/uL Monocytes # (Auto) 1.20 K/uL Eosinophils # (Auto) 0.09 K/uL Basophils # (Auto) 0.02 K/uL RDW Standard Deviation 73.5 fL RDW Coefficient of Variation 22.7 % Immature Granulocyte % (Auto) 0.4 % Immature Granulocyte # (Auto) 0.07 K/uL Platelet Estimate DECREASED Large Platelets 1+ Poikilocytosis PRESENT Anisocytosis PRESENT Target Cells 1+ Iron Level 27 mcg/dl Total Iron Binding Capacity 102 mcg/dl Transferrin 73 mg/dl Transferrin % Saturation 27 % Ferritin 123.2 ng/ml Test 11/28/16 16:21 Bedside Glucose 222 mg/dl
[2016-11-28] MEDS: ATORVASTATIN 10 MG TAB PO SCH (20:49)
[2016-11-28] MEDS: MIRTAZAPINE TAB 15 MG TAB PO SCH (20:49)
[2016-11-29] VITALS (26 sets, daily range): BP systolic 89–142; BP diastolic 42–91; PULSE 82–107; TEMP 36.5–37; O2SAT 93–99
[2016-11-29] MEDS: LEVALBUTEROL 0.63MG/3 ML NEB INH SCH ×6 (03:26→23:02)
[2016-11-29] MEDS: IPRATROPIUM BROMIDE NEB SOLN 0.02% 2.5 ML VIAL INH SCH ×6 (03:26→23:02)
[2016-11-29 06:04] LABS: MEAN CORPUSCULAR HGB CONC 31.5 g/dl (32-36)
[2016-11-29 06:45] LABS: BUN/CREATININE RATIO 13.4 (10-20); CALCIUM 8.9 mg/dl (8.5-10.1); CREATININE 4.2 mg/dl (0.60-1.20); PHOSPHORUS 6.4 mg/dl (2.5-4.9); POTASSIUM 4.3 mmol/L (3.5-5.1)
[2016-11-29] MEDS ORDERED: ALBUMIN HUMAN 25% 12.5 GM/50 ML VIAL IV STA (07:17)
--- NOTE | 2016-11-29 07:18 | Nephrology Progress Note ---
Nephrology Progress Note Date of Service: Nov 29, 2016. Subjective 76 yo female with arturo in setting of cirrhosis with aspiration pneumonia. has had two dialysis treatments. pt is lightheaded when she stands up but also is very sob with exertion. weak. Objective Date Time Temp Pulse Resp B/P (MAP) Pulse Ox O2 Delivery O2 Flow Rate FiO2 11/29/16 04:00 Nasal Cannula 2.0 11/29/16 03:36 36.8 106 20 142/62 (88) 95 Nasal Cannula 2.0 11/29/16 03:26 101 18 95 Room Air 11/29/16 00:00 Nasal Cannula 2.0 11/28/16 23:15 91 18 99 Room Air 11/28/16 23:00 37.1 106 22 145/62 (89) 96 Nasal Cannula 2.0 11/28/16 20:01 94 Nasal Cannula 2.0 11/28/16 19:36 107 18 100 Room Air 11/28/16 19:20 36.8 111 18 130/57 (81) 97 Oxyhood 2.0 11/28/16 16:13 94 Nasal Cannula 2.0 11/28/16 15:40 36.6 107 20 136/57 (83) 99 11/28/16 15:32 107 18 98 Room Air 11/28/16 12:35 36.6 96 113/55 (74) 11/28/16 12:00 103 100/54 11/28/16 11:52 36.6 104 16 116/53 (74) 100 Room Air 11/28/16 11:45 104 116/53 11/28/16 11:30 101 109/57 11/28/16 11:26 103 18 94 Room Air 11/28/16 11:15 100 114/51 11/28/16 11:00 101 108/56 11/28/16 10:45 102 113/58 11/28/16 10:30 104 111/50 11/28/16 10:15 102 108/50 11/28/16 10:00 104 118/56 11/28/16 09:45 103 133/57 11/28/16 09:40 103 132/57 11/28/16 09:30 36.5 108 119/54 (75) 11/28/16 08:00 96 Room Air 11/28/16 07:43 93 18 90 Room Air 11/28/16 07:37 36.9 99 20 125/56 (79) 90 Room Air Physical Exam: General-[id number] Eyes-no scleral icterus ENT-mmm Neck-supple Lungs-decreased at right base with end expiratory wheeze Heart-tachycardia Abdomen-bs+ s/+distention Extremities-+2 edema-pitting Neuro-nonfocal Current Inpatient Medications Medications (Trade) Dose Ordered Sig/Edilson Route Start Time Stop Time Status Last Admin Dose Admin Albuterol (Ventolin Hfa Inhaler) 2 puffs Q4 PRN INH 11/12/16 22:00 12/12/16 21:59 Atorvastatin Calcium (Lipitor Tab) 10 mg HS PO 11/13/16 21:00 12/13/16 20:59 11/28/16 20:49 10 MG Cholestyramine Resin (Questran Powder Light) 4 gm BID@10,22 PO 11/12/16 22:00 12/12/16 21:59 11/28/16 10:00 4 GM Ondansetron HCl (Zofran Tab) 4 mg Q6H PRN PO 11/12/16 22:00 12/12/16 21:59 11/25/16 09:36 4 MG Pantoprazole Sodium (Protonix Tab) 40 mg DAILY PO 11/13/16 09:00 12/13/16 08:59 11/28/16 07:57 40 MG Buspirone HCl (Buspar Tab) 10 mg TID PO 11/13/16 09:00 12/13/16 08:59 11/28/16 20:49 10 MG Loperamide HCl (Imodium Cap) 2 mg Q12H PRN PO 11/12/16 22:00 12/12/16 21:59 11/25/16 07:59 2 MG Potassium/ Phosphorus/Sodium (Phospha 250 Neutral 155-852-130 Mg) 1 tab BID PO 11/13/16 09:00 12/13/16 08:59 11/28/16 20:49 1 TAB Mirtazapine (Remeron Tab) 15 mg HS PO 11/13/16 21:00 12/13/16 20:59 11/28/16 20:49 15 MG Glucose (Glucose 40% Gel) 15-30 GRAMS 15 GRAMS... UD PRN PO 11/17/16 12:45 12/17/16 12:44 Glucose (Glucose Chew Tab) 4-8 Tablets 4 Tabl... UD PRN PO 11/17/16 12:45 12/17/16 12:44 Dextrose (Dextrose 50% 50ML Syringe) 25-50ML OF 50% DW IV FOR... UD PRN IV 11/17/16 12:45 12/17/16 12:44 Glucagon (Glucagon Inj) 1 mg UD PRN SQ 11/17/16 12:45 12/17/16 12:44 Polyethylene (Miralax Powder Packet) 17 gm DAILY PRN PO 11/17/16 12:45 12/17/16 12:44 Docusate Sodium (coLACE CAP) 100 mg BID PO 11/17/16 21:00 12/17/16 20:59 11/28/16 20:49 100 MG Al Hydroxide/Mg Hydroxide (Maalox Susp) 15 ml Q4H PRN PO 11/21/16 21:45 12/21/16 21:44 11/21/16 21:56 15 ML Ipratropium [place] (Atrovent 0.02% 0.5MG/2.5ML Neb) 0.5 mg Q4R INH 11/22/16 12:00 12/22/16 11:59 11/29/16 03:26 0.5 MG Miscellaneous Information (Consult Glycemic Management Pharmacy) 1 ea UD PRN N/A 11/23/16 09:47 12/23/16 09:46 Enteral Nutritional Formula (Boost Glucose Control) 0.5 can ACHS PO 11/23/16 11:00 12/23/16 10:59 11/28/16 16:15 0.5 CAN Insulin Glargine (Lantus Solostar Pen) SEE PROTOCOL BID SC 11/24/16 09:00 12/24/16 08:59 11/28/16 21:20 14 UNITS Insulin Aspart (novoLOG ASPART) SLIDING SCALE ACHS SC 11/24/16 21:00 12/24/16 20:59 11/28/16 21:19 1 UNITS Benzonatate (Tessalon Perles Cap) 100 mg TID PRN PO 11/24/16 15:00 12/24/16 14:59 11/27/16 20:58 100 MG Levalbuterol (Xopenex 0.63 Mg/ 3 Ml Neb) 0.63 mg Q4R INH 11/25/16 12:00 12/22/16 11:59 11/29/16 03:26 0.63 MG Oxymetazoline HCl (Afrin 0.05% Nasal [place]) 1 sprays Q6H PRN NA 11/25/16 11:00 12/25/16 10:59 Morphine Sulfate (MoRPHine SULFATE INJ) 3 mg Q3HWA PRN IV 11/27/16 11:45 12/11/16 11:44 Last 24 Hours Test 11/28/16 11:25 11/28/16 16:21 11/28/16 20:21 11/28/16 20:57 Bedside Glucose 96 mg/dl 222 mg/dl 184 mg/dl 144 mg/dl Test 11/29/16 05:26 11/29/16 06:45 Mean Corpuscular Hemoglobin Concent 31.5 g/dl Sodium Level 138 mmol/L Potassium Level 4.3 mmol/L Chloride Level 103 mmol/L Carbon Dioxide Level 26 mmol/L Anion Gap 9.0 mmol/L Blood Urea Nitrogen 56 mg/dl Creatinine 4.20 mg/dl Est Creatinine Clear Calc Drug Dose 11.5 ml/min Estimated GFR () 11.2 Estimated GFR (Non- 9.6 BUN/Creatinine Ratio 13.4 Random Glucose 173 mg/dl Calcium Level 8.9 mg/dl Phosphorus Level 6.4 mg/dl Bedside Glucose 164 mg/dl Assessment & Plan arturo on ckd-has tunneled line and underwent two short dialysis treatments. pt is lightheaded when she stands up so will start midodrine 2.5mg po tid to help with bp. continue to try to diurese patient since she has significant volume overload. plan on dialysis today and tomorrow with 1 liter uf on each day as we slowly try to remove fluid. overall, though, pt with a poor prognosis. liver disease with third spacing, difficult for patient to tolerate aggressive uf. 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 too early to say, but feel pt may not recover kidney function.
[2016-11-29] MEDS: BOOST GLUCOSE CONTROL PO SCH ×4 (07:30→21:00)
[2016-11-29] MEDS: ONDANSETRON 4 MG TAB PO PRN (07:47)
[2016-11-29 07:48] LABS: ANISOCYTOSIS PRESENT; BASO % 0.1 %; BASO ABS # 0.01 K/uL (0-0.2); COMPLETE YES; EOS % 0.4 %; HEMATOCRIT 26.7 % (37-47); IG% 0.5 %; LARGE PLATELETS 1+; LYMPH % 8.7 %; LYMPH ABS # 1.19 K/uL (1.2-3.4); MEAN CELL VOLUME 94.3 fL (80-100); MEAN CORPUSCULAR HEMOGLOBIN 29.7 pg (25-34); MEAN PLATELET VOLUME 12.6 fL (7.4-10.4); MONO % 8.3 %; PLATELET COUNT 79 K/uL (130-400); POIKILOCYTOSIS PRESENT; RED BLOOD COUNT 2.83 M/uL (4.2-5.4); WHITE BLOOD COUNT 13.71 K/uL (4.8-10.8)
[2016-11-29] MEDS: MIDODRINE 2.5 MG TAB PO SCH ×3 (09:22→17:01)
[2016-11-29] MEDS: INSULIN ASPART 100 UNITS/ML 3 ML PEN SC SCH ×4 (09:30→21:17)
--- NOTE | 2016-11-29 09:53 | Pulmonology Progress Note ---
Pulmonary Progress Note Date of Service Nov 29, 2016. Attending Subjective Patient seen and examined today. Feeling a little down about her liver disease. She is wondering how long she is going to need dialysis and the quality of life she is going to have from now on . She states that she is breathing better today. She is less short of breath. She is now able to lie flat without dyspnea. She denies cough or chest pain. Objective VS reviewed. O/E: Gen: AAOx3, NAD, speaking in full sentences. No acute respiratory distress. No use of accessory muscles of respiration. HEENT: AT/NC, PERRL, EOMI, ears--hearing normal, nose-normal nasal turbinates; there is a nasal canula in place, throat--no tonsillar exudates CVS: S1, S2, tachycardic Lungs: diminished breath sounds b/l, bibasilar crackles, chest wall right permacath in place. Abd: distended, nontender, BS+ Ext: pitting edema up to knees bilaterally about +3, no cyanosis or clubbing noted Labs reviewed and significant for creatinine is 4.20 today. WBC is also trending down 13.7 from 15.7. Imaging reviewed. Venous Doppler b/l LE: 10/26/2016No DVT within right or left lower extremity. CXR 11/26/2016--FINDINGS: Mild improvement of aeration the hemithoraces bilaterally. Persistent consolidative/atelectatic changes left base. Improved perihilar infiltrates. Chronic elevation left hemidiaphragm. Trace pleural fluid right base improved. IMPRESSION: Improved exam. Mild residual bibasilar consolidative/effusion-type change. Abdominal U/S 11/26/2016 IMPRESSION: 1. Small to moderate ascites, increased since exam of November 20, 2016. 2. Bilateral pleural effusions, right larger than left. CT Chest 11/20/2016 IMPRESSION: 1. Moderate right pleural effusion and small left pleural effusion with basilar atelectasis 2. Groundglass left upper lobe opacities, suspicious for a pneumonitis. Clinical and imaging follow-up is recommended 3. Large hiatal hernia 4. Ascites. Splenomegaly Medications from a respiratory standpoint include: Xopenex, Atrovent, Tessalon Perles, Zosyn 3.375 mg and Lasix 80 mg BID. Assessment & Plan 1. Transudative pleural effusion, likely secondary to underlying renal disease or liver disease. 2. Asthma by history. 3. Possible aspiration pneumonia left upper lobe, CAT scan report. 4. RUL 1.5 cm ground glass nodule 5. Chronic kidney disease stage IV. 6. Large hiatal hernia. 7. Nonalcoholic steatohepatitis. 8. Splenomegaly. Patient has failed diuretic treatment. Hemodialysis started on 11/27/2016. No fluid was removed. She had 1L of fluid removed today. Her oxygen requirements are minimal. Continue to keep her SaO2>92%. Her CXR from 11/26/2016 showed interval improvement of right pleural effusion. Pathology is negative for malignancy. Cultures are negative thus far. AFB is still pending. Pleural effusions are likely from underlying kidney and liver disease. I would continue with albuterol and xopenex for bronchodilatory agents. CTA is negative for PE. Continue with Zosyn for aspiration pneumonia to complete total of 7 days. Continue with flutter valve. I would recommend interval follow up of CT as an outpatient to evaluate for resolution in a 6 weeks. Consider PT/OT evaluation. Will sign off case today. Please call me if you have any further questions or concerns. Data Medications: Current Inpatient Medications Medications (Trade) Dose Ordered Sig/Edilson Route Start Time Stop Time Status Last Admin Dose Admin Albuterol (Ventolin Hfa Inhaler) 2 puffs Q4 PRN INH 11/12/16 22:00 12/12/16 21:59 Atorvastatin Calcium (Lipitor Tab) 10 mg HS PO 11/13/16 21:00 12/13/16 20:59 11/28/16 20:49 10 MG Cholestyramine Resin (Questran Powder Light) 4 gm BID@ PO 11/12/16 22:00 12/12/16 21:59 11/28/16 10:00 4 GM Ondansetron HCl (Zofran Tab) 4 mg Q6H PRN PO 11/12/16 22:00 12/12/16 21:59 11/29/16 07:47 4 MG Pantoprazole Sodium (Protonix Tab) 40 mg DAILY PO 11/13/16 09:00 12/13/16 08:59 11/28/16 07:57 40 MG Buspirone HCl (Buspar Tab) 10 mg TID PO 11/13/16 09:00 12/13/16 08:59 11/28/16 20:49 10 MG Loperamide HCl (Imodium Cap) 2 mg Q12H PRN PO 11/12/16 22:00 12/12/16 21:59 11/25/16 07:59 2 MG Potassium/ Phosphorus/Sodium (Phospha 250 Neutral 155-852-130 Mg) 1 tab BID PO 11/13/16 09:00 12/13/16 08:59 11/28/16 20:49 1 TAB Mirtazapine (Remeron Tab) 15 mg HS PO 11/13/16 21:00 12/13/16 20:59 11/28/16 20:49 15 MG Glucose (Glucose 40% Gel) 15-30 GRAMS 15 GRAMS... UD PRN PO 11/17/16 12:45 12/17/16 12:44 Glucose (Glucose Chew Tab) 4-8 Tablets 4 Tabl... UD PRN PO 11/17/16 12:45 12/17/16 12:44 Dextrose (Dextrose 50% 50ML Syringe) 25-50ML OF 50% DW IV FOR... UD PRN IV 11/17/16 12:45 12/17/16 12:44 Glucagon (Glucagon Inj) 1 mg UD PRN SQ 11/17/16 12:45 12/17/16 12:44 Polyethylene (Miralax Powder Packet) 17 gm DAILY PRN PO 11/17/16 12:45 12/17/16 12:44 Docusate Sodium (coLACE CAP) 100 mg BID PO 11/17/16 21:00 12/17/16 20:59 11/28/16 20:49 100 MG Al Hydroxide/Mg Hydroxide (Maalox Susp) 15 ml Q4H PRN PO 11/21/16 21:45 12/21/16 21:44 11/21/16 21:56 15 ML Ipratropium [employer] (Atrovent 0.02% 0.5MG/2.5ML Neb) 0.5 mg Q4R INH 11/22/16 12:00 12/22/16 11:59 11/29/16 07:23 0.5 MG Miscellaneous Information (Consult Glycemic Management Pharmacy) 1 ea UD PRN N/A 11/23/16 09:47 12/23/16 09:46 Enteral Nutritional Formula (Boost Glucose Control) 0.5 can ACHS PO 11/23/16 11:00 12/23/16 10:59 11/28/16 16:15 0.5 CAN Insulin Glargine (Lantus Solostar Pen) SEE PROTOCOL BID SC 11/24/16 09:00 12/24/16 08:59 11/28/16 21:20 14 UNITS Insulin Aspart (novoLOG ASPART) SLIDING SCALE ACHS SC 11/24/16 21:00 12/24/16 20:59 11/28/16 21:19 1 UNITS Benzonatate (Tessalon Perles Cap) 100 mg TID PRN PO 11/24/16 15:00 12/24/16 14:59 11/27/16 20:58 100 MG Levalbuterol (Xopenex 0.63 Mg/ 3 Ml Neb) 0.63 mg Q4R INH 11/25/16 12:00 12/22/16 11:59 11/29/16 07:23 0.63 MG Oxymetazoline HCl (Afrin 0.05% Nasal [place]) 1 sprays Q6H PRN NA 11/25/16 11:00 12/25/16 10:59 Morphine Sulfate (MoRPHine SULFATE INJ) 3 mg Q3HWA PRN IV 11/27/16 11:45 12/11/16 11:44 Midodrine (Proamatine Tab) 2.5 mg TID@,,17 PO 11/29/16 08:00 12/29/16 07:59 11/29/16 09:22 2.5 MG Vital Signs: Date Time Temp Pulse Resp B/P (MAP) Pulse Ox O2 Delivery O2 Flow Rate FiO2 11/29/16 09:30 102 102/53 11/29/16 09:15 101 128/91 11/29/16 09:00 103 121/55 11/29/16 08:45 101 128/59 11/29/16 08:30 100 130/55 11/29/16 08:15 36.5 100 135/55 (81) 11/29/16 07:53 36.9 105 18 133/56 (81) 93 Nasal Cannula 2.0 11/29/16 07:23 102 18 95 Nasal Cannula 2.0 11/29/16 04:00 Nasal Cannula 2.0 11/29/16 03:36 36.8 106 20 142/62 (88) 95 Nasal Cannula 2.0 11/29/16 03:26 101 18 95 Room Air 11/29/16 00:00 Nasal Cannula 2.0 11/28/16 23:15 91 18 99 Room Air 11/28/16 23:00 37.1 106 22 145/62 (89) 96 Nasal Cannula 2.0 11/28/16 20:01 94 Nasal Cannula 2.0 11/28/16 19:36 107 18 100 Room Air 11/28/16 19:20 36.8 111 18 130/57 (81) 97 Oxyhood 2.0 11/28/16 16:13 94 Nasal Cannula 2.0 11/28/16 15:40 36.6 107 20 136/57 (83) 99 11/28/16 15:32 107 18 98 Room Air 11/28/16 12:35 36.6 96 113/55 (74) 11/28/16 12:00 103 100/54 11/28/16 11:52 36.6 104 16 116/53 (74) 100 Room Air 11/28/16 11:45 104 116/53 11/28/16 11:30 101 109/57 11/28/16 11:26 103 18 94 Room Air 11/28/16 11:15 100 114/51 11/28/16 11:00 101 108/56 11/28/16 10:45 102 113/58 11/28/16 10:30 104 111/50 11/28/16 10:15 102 108/50 11/28/16 10:00 104 118/56 Laboratory Results: Last 24 Hours Test 11/28/16 11:25 11/28/16 16:21 11/28/16 20:21 11/28/16 20:57 Bedside Glucose 96 mg/dl 222 mg/dl 184 mg/dl 144 mg/dl Test 11/29/16 05:26 11/29/16 06:45 White Blood Count 13.71 K/uL Red Blood Count 2.83 M/uL Hemoglobin 8.4 g/dL Hematocrit 26.7 % Mean Corpuscular Volume 94.3 fL Mean Corpuscular Hemoglobin 29.7 pg Mean Corpuscular Hemoglobin Concent 31.5 g/dl Platelet Count 79 K/uL Mean Platelet Volume 12.6 fL Neutrophils (%) (Auto) 82.0 % Lymphocytes (%) (Auto) 8.7 % Monocytes (%) (Auto) 8.3 % Eosinophils (%) (Auto) 0.4 % Basophils (%) (Auto) 0.1 % Neutrophils # (Auto) 11.24 K/uL Lymphocytes # (Auto) 1.19 K/uL Monocytes # (Auto) 1.14 K/uL Eosinophils # (Auto) 0.06 K/uL Basophils # (Auto) 0.01 K/uL RDW Standard Deviation 77.5 fL RDW Coefficient of Variation 23.5 % Immature Granulocyte % (Auto) 0.5 % Immature Granulocyte # (Auto) 0.07 K/uL Large Platelets 1+ Poikilocytosis PRESENT Anisocytosis PRESENT Sodium Level 138 mmol/L Potassium Level 4.3 mmol/L Chloride Level 103 mmol/L Carbon Dioxide Level 26 mmol/L Anion Gap 9.0 mmol/L Blood Urea Nitrogen 56 mg/dl Creatinine 4.20 mg/dl Est Creatinine Clear Calc Drug Dose 11.5 ml/min Estimated GFR () 11.2 Estimated GFR (Non- 9.6 BUN/Creatinine Ratio 13.4 Random Glucose 173 mg/dl Calcium Level 8.9 mg/dl Phosphorus Level 6.4 mg/dl Bedside Glucose 164 mg/dl
[2016-11-29] MEDS: INSULIN GLARGINE SOLOSTAR 100 UNITS/ML 3 ML PEN SC SCH ×2 (09:55→21:16)
[2016-11-29] MEDS: CHOLESTYRAMINE LIGHT 4 GM PKT PO SCH ×3 (10:00→22:00)
[2016-11-29] MEDS: POT PHOSPHATE MONOBASIC W/ SOD TAB PO SCH ×2 (12:22→21:21)
[2016-11-29] MEDS: DOCUSATE SODIUM 100 MG CAP PO SCH ×2 (12:22→21:00)
[2016-11-29] MEDS: PANTOprazole SOD 40 MG TAB PO SCH (12:23)
--- NOTE | 2016-11-29 14:09 | Pharmacy Progress Note ---
Glycemic Control Progress Note Date of Service Nov 29, 2016. Scope Glycemic Pharmacist consulted for glycemic control to write orders per [facility] inpatient glycemic control protocol. Objective Accuchecks BSG (last 24hrs): Test 11/28/16 16:21 11/28/16 20:21 11/28/16 20:57 11/29/16 05:26 Bedside Glucose 222 mg/dl (70-90) 184 mg/dl (70-90) 144 mg/dl (70-90) Random Glucose 173 mg/dl (70-99) Test 11/29/16 06:45 11/29/16 09:29 11/29/16 11:06 Bedside Glucose 164 mg/dl (70-90) 128 mg/dl (70-90) 105 mg/dl (70-90) HbA1c: Test 11/18/16 06:40 Hemoglobin A1c 6.8 % (4.5-5.6) H Recent Pertinent Medications The patient is currently receiving: * Basal insulin: Lantus 14 units every 12 hours * Correctional Insulin: Novolog Correction per scale ACHS Goal Range: Low 110 mg/dL - High 140 mg/dL Correction Factor: 20 mg/dL/unit * Prandial insulin: Per carb ratio of 1 unit per 7 grams CHO consumed Outpatient Anti-Diabetic Meds diet controlled Assessment & Plan ASSESSMENT: 11/28/16 * 76 yo F s/p TDC yesterday, BSGs ranging 134-193 over the past 24 hours * Initially pharmacy consulted to help managed steroid-induced hyperglycemia in a "diet-controlled" diabetic * However, since the discontinuation of steroids nearly 72 hrs ago, BSGs have remained elevated and patient continues to require basal/bolus insulin * Yesterday I did not titrate insulin since patient was going to receiving HD for the first time and I did not know how insulin sensitivity was going to be effected * Fasting BSG this AM 215 so patient still requiring insulin and needing tighter adjustments * I tightened Novolog this AM and plan to increase Lantus by 20% starting tonight * Lunch BSG responded well and came down to 96 * I am less concerned that coverage is too tight as patient's fasting BSG was so elevated that she received more insulin than she normally would on this scale * Reassess tomorrow morning as patient is to have dialysis again today 11/29/16 * Patient is currently receiving an average of ~57 units of insulin per day * 26 units of basal insulin * 31 units of prandial/correctional insulin * BSGs ranging 96 - 222 over the past 24hrs * Anticipating insulin regimen will need decreased for the next 24hrs d/t BSG trend over the past 8 hours * AM Fasting BSG = 164; Per nurse, patient very nauseated and unable to eat breakfast * BSG trended down to 105 at lunch; patient still lethargic with poor po intake * Since oral intake has decreased I assume she will require far less insulin over the next 24 hours * Of note, patient is to continue with another dialysis treatment today * Back Lantus dosing down based on BSG trend tonight and Loosen CF/CR PLAN FOR INPATIENT GLYCEMIC CONTROL: * Continue Lantus based on BSG trend: * If BSG <120: 0 units * If BSG 121-180: 7 units * If BSG >181: 14 units * Loosen correction factor to 30 mg/dl/unit * Loosen carb ratio to 1 unit per 10 grams CHO consumed * Continue goal range of Low 110 mg/dL - High 140 mg/dL * Please note that the plan above was derived based on current level of insulin resistance and hospital stress. These recommendations are appropriate for inpatient admission only. Plan of care upon discharge will need to be reassessed to avoid potential outpatient hypo/hyperglycemia. Thank you.
--- NOTE | 2016-11-29 15:50 | Progress Note ---
Internal Med Progress Note Date of Service: Nov 29, 2016. Provider Documentation: SUBJECTIVE: sob is better no chest pain nauseous and could not eat much asking if she will able to ambulate and take care of herself. OBJECTIVE: Vital Signs-as noted below Exam: General-alert and awake. ENT-normal hearing Neck-no neck masses Lungs-cta b/l no wheezing or crackles Heart-s1 and s2 heard regular rhythm no murmurs Abdomen-soft bowel sounds present non tender no distension Extremities-no edema no erythema Neuro-alert and oriented moves extremities Lab data as noted below. ASSESSMENT & PLAN: This is a 76 year old female with a PMH of CKD stage IV, DM2, HTN, HLD, GERD, hiatal hernia, MORRISON cirrhosis presented with a fall and found to have elevated troponin and creatinine levels ACUTE HYPOXIC RESPIRATORY FAILURE SECONDARY TO RIGHT PLEURAL EFFUSION POSSIBLE ASPIRATION Pneumonitis PULMONARY EDEMA pleural effusion and pulmonary edema mostly from renal failure and liver cirrhosis s/p Thoracentesis 11/23/[address] Phoenix drained 800cc PF studies ordered on Zosyn IV Day 10/19- and stopped Speech Therapy Eval: Dental soft, slippery diet received Solumedrol 40mg IV bid received on Lasix 40mg IV + albumin crea still rising s/p right IJ tunnel catheter nephrology initialed dialyses 11/27/16 to continue dialysis as per nephrology ACUTE RENAL FAILURE ON Chronic Kidney Disease stage IV creatinine on admission 2.5 Creatine on 11/01/16 was 1.7 Nephrology on board received Lasix 40mg IV + albumin BID crea still rising Initiated on HD as above MORRISON cirrhosis with some pleural effusion, likely hepatic hydrothorax GI reconsulted Liver US to quantify ascites: minimal repeat liver US: small to moderate ascites monitor for progression, may need Paracentesis will monitor Elevated Troponin Level NSTEMI mostly demand ischemia from hypoxia Possible related to recent fall and elevated creatine no chest pain, no EKG changes, no significant findings on echo Mechanical Fall in the setting of Orthostatic Hypotension Norvasc was discontinued Midodrine was discontinued due to elevated BP Continue PT/OT midodrine 2.5mg tid restarted 11/29/16 will monitor Hypotension Midodrine restarted will monitor Thrombocytopenia Related to MORRISON ascites Platelet 85 Depression/Anxiety Prozac was discontinued on Remeron stable Hiatal Hernia/GERD nonsurgical continue PPI director nurses' registry consulted Boost BID added as per director nurses' registry DM2 diet-controlled last Ha1c ~ 6.4% on 09/29 DVT ppx SCDs ambulation due to low plt, no anticoagulation CODE STATUS FULL CODE DISPOSITION to be determined pt/ot social service for d/c planning Vital Signs: Date Time Temp Pulse Resp B/P (MAP) Pulse Ox O2 Delivery O2 Flow Rate FiO2 11/29/16 15:32 36.8 100 20 120/51 (74) 97 Nasal Cannula 2.0 11/29/16 12:01 36.7 99 18 105/47 (66) 98 Nasal Cannula 2.0 11/29/16 12:00 Nasal Cannula 2.0 11/29/16 11:51 36.5 97 96/58 (71) 11/29/16 11:30 99 89/52 11/29/16 11:28 84 18 97 Nasal Cannula 2.0 11/29/16 11:15 98 106/49 11/29/16 11:00 99 99/48 11/29/16 10:45 102 108/43 11/29/16 10:30 99 95/47 11/29/16 10:15 99 112/42 11/29/16 10:00 104 116/53 11/29/16 09:45 107 124/57 11/29/16 09:30 102 102/53 11/29/16 09:15 101 128/91 11/29/16 09:00 103 121/55 11/29/16 08:45 101 128/59 11/29/16 08:30 100 130/55 11/29/16 08:15 36.5 100 135/55 (81) 11/29/16 08:00 Nasal Cannula 11/29/16 07:53 36.9 105 18 133/56 (81) 93 Nasal Cannula 2.0 11/29/16 07:23 102 18 95 Nasal Cannula 2.0 11/29/16 04:00 Nasal Cannula 2.0 11/29/16 03:36 36.8 106 20 142/62 (88) 95 Nasal Cannula 2.0 11/29/16 03:26 101 18 95 Room Air 11/29/16 00:00 Nasal Cannula 2.0 11/28/16 23:15 91 18 99 Room Air 11/28/16 23:00 37.1 106 22 145/62 (89) 96 Nasal Cannula 2.0 11/28/16 20:01 94 Nasal Cannula 2.0 11/28/16 19:36 107 18 100 Room Air 11/28/16 19:20 36.8 111 18 130/57 (81) 97 Oxyhood 2.0 11/28/16 16:13 94 Nasal Cannula 2.0 Lab Results: Results Past 24 Hours Test 11/28/16 16:21 11/28/16 20:21 11/28/16 20:57 11/29/16 05:26 Range/Units Bedside Glucose 222 184 144 70-90 mg/dl White Blood Count 13.71 4.8-10.8 K/uL Red Blood Count 2.83 4.2-5.4 M/uL Hemoglobin 8.4 12.0-16.0 g/dL Hematocrit 26.7 37-47 % Mean Corpuscular Volume 94.3 80-100 fL Mean Corpuscular Hemoglobin 29.7 25-34 pg Mean Corpuscular Hemoglobin Concent 31.5 32-36 g/dl Platelet Count 79 130-400 K/uL Mean Platelet Volume 12.6 7.4-10.4 fL Neutrophils (%) (Auto) 82.0 % Lymphocytes (%) (Auto) 8.7 % Monocytes (%) (Auto) 8.3 % Eosinophils (%) (Auto) 0.4 % Basophils (%) (Auto) 0.1 % Neutrophils # (Auto) 11.24 1.4-6.5 K/uL Lymphocytes # (Auto) 1.19 1.2-3.4 K/uL Monocytes # (Auto) 1.14 0.11-0.59 K/uL Eosinophils # (Auto) 0.06 0-0.5 K/uL Basophils # (Auto) 0.01 0-0.2 K/uL RDW Standard Deviation 77.5 36.4-46.3 fL RDW Coefficient of Variation 23.5 11.5-14.5 % Immature Granulocyte % (Auto) 0.5 % Immature Granulocyte # (Auto) 0.07 0.00-0.02 K/uL Large Platelets 1+ Poikilocytosis PRESENT Anisocytosis PRESENT Sodium Level 138 136-145 mmol/L Potassium Level 4.3 3.5-5.1 mmol/L Chloride Level 103 98-107 mmol/L Carbon Dioxide Level 26 21-32 mmol/L Anion Gap 9.0 3-11 mmol/L Blood Urea Nitrogen 56 7-18 mg/dl Creatinine 4.20 0.60-1.20 mg/dl Est Creatinine Clear Calc Drug Dose 11.5 ml/min Estimated GFR () 11.2 Estimated GFR (Non- 9.6 BUN/Creatinine Ratio 13.4 10-20 Random Glucose 173 70-99 mg/dl Calcium Level 8.9 8.5-10.1 mg/dl Phosphorus Level 6.4 2.5-4.9 mg/dl Test 11/29/16 06:45 11/29/16 09:29 11/29/16 11:06 Range/Units Bedside Glucose 164 128 105 70-90 mg/dl
[2016-11-29] MEDS: ATORVASTATIN 10 MG TAB PO SCH (21:21)
[2016-11-29] MEDS: MIRTAZAPINE TAB 15 MG TAB PO SCH (21:22)
[2016-11-30] VITALS (26 sets, daily range): BP systolic 87–142; BP diastolic 44–60; PULSE 93–106; TEMP 36.5–37.2; O2SAT 91–99
[2016-11-30] MEDS: IPRATROPIUM BROMIDE NEB SOLN 0.02% 2.5 ML VIAL INH SCH ×6 (03:30→23:09)
[2016-11-30] MEDS: LEVALBUTEROL 0.63MG/3 ML NEB INH SCH ×6 (03:30→23:09)
[2016-11-30 05:57] LABS: MEAN CORPUSCULAR HGB CONC 33.3 g/dl (32-36)
[2016-11-30 06:08] LABS: MEAN CELL VOLUME 93.8 fL (80-100); MEAN CORPUSCULAR HEMOGLOBIN 31.3 pg (25-34); RED BLOOD COUNT 2.56 M/uL (4.2-5.4); WHITE BLOOD COUNT 13.98 K/uL (4.8-10.8)
[2016-11-30 06:24] LABS: MEAN PLATELET VOLUME 11.3 fL (7.4-10.4); PLATELET COUNT 89 K/uL (130-400)
[2016-11-30 06:25] LABS: ANISOCYTOSIS PRESENT; BASO % 0.1 %; BASO ABS # 0.02 K/uL (0-0.2); COMPLETE YES; EOS % 0.9 %; IG% 0.6 %; LYMPH % 9.5 %; LYMPH ABS # 1.33 K/uL (1.2-3.4); MONO % 7.4 %; NEUT % 81.5 %; PLT ESTIMATE DECREASED
[2016-11-30 06:26] LABS: CREATININE 3.4 mg/dl (0.60-1.20)
[2016-11-30 06:27] LABS: BUN/CREATININE RATIO 10.2 (10-20); CALCIUM 8.2 mg/dl (8.5-10.1); POTASSIUM 4.2 mmol/L (3.5-5.1)
--- NOTE | 2016-11-30 06:48 | Nephrology Progress Note ---
Nephrology Progress Note Date of Service: Nov 30, 2016. Subjective 76 yo female with arturo in setting of cirrhosis with aspiration pneumonia. pts color is better and appears more comfortable. pt had a good night last night. company visited her. not as lightheaded but she felt her equilibrium was off when she stood up. started on midodrine yesterday to help with bp while removing fluid. Objective Date Time Temp Pulse Resp B/P (MAP) Pulse Ox O2 Delivery O2 Flow Rate FiO2 11/30/16 04:00 Nasal Cannula 2.0 11/30/16 04:00 37.1 104 18 142/60 (87) 93 2.0 11/30/16 03:30 99 18 94 Nasal Cannula 2.0 11/30/16 00:44 36.8 99 16 116/46 (69) 95 2.0 11/30/16 00:00 Nasal Cannula 2.0 11/29/16 23:02 101 18 99 Nasal Cannula 2.0 11/29/16 20:00 Nasal Cannula 2.0 11/29/16 19:28 105 18 98 Nasal Cannula 2.0 11/29/16 19:15 37.0 106 22 118/56 (76) 97 Nasal Cannula 2.0 11/29/16 16:00 Nasal Cannula 2.0 11/29/16 15:55 82 18 97 Nasal Cannula 2.0 11/29/16 15:32 36.8 100 20 120/51 (74) 97 Nasal Cannula 2.0 11/29/16 12:01 36.7 99 18 105/47 (66) 98 Nasal Cannula 2.0 11/29/16 12:00 Nasal Cannula 2.0 11/29/16 11:51 36.5 97 96/58 (71) 11/29/16 11:30 99 89/52 11/29/16 11:28 84 18 97 Nasal Cannula 2.0 11/29/16 11:15 98 106/49 11/29/16 11:00 99 99/48 11/29/16 10:45 102 108/43 11/29/16 10:30 99 95/47 11/29/16 10:15 99 112/42 11/29/16 10:00 104 116/53 11/29/16 09:45 107 124/57 11/29/16 09:30 102 102/53 11/29/16 09:15 101 128/91 11/29/16 09:00 103 121/55 11/29/16 08:45 101 128/59 11/29/16 08:30 100 130/55 11/29/16 08:15 36.5 100 135/55 (81) 11/29/16 08:00 Nasal Cannula 11/29/16 07:53 36.9 105 18 133/56 (81) 93 Nasal Cannula 2.0 11/29/16 07:23 102 18 95 Nasal Cannula 2.0 Physical Exam: General-aaox3 Eyes-no scleral icterus ENT-mmm Neck-supple Lungs-basilar rales Heart-tachycardia Abdomen-bs+ s/+distention Extremities-+2 edema-pitting Neuro-nonfocal Current Inpatient Medications Medications (Trade) Dose Ordered Sig/Edilson Route Start Time Stop Time Status Last Admin Dose Admin Albuterol (Ventolin Hfa Inhaler) 2 puffs Q4 PRN INH 11/12/16 22:00 12/12/16 21:59 Atorvastatin Calcium (Lipitor Tab) 10 mg HS PO 11/13/16 21:00 12/13/16 20:59 11/29/16 21:21 10 MG Cholestyramine Resin (Questran Powder Light) 4 gm BID@10, PO 11/12/16 22:00 12/12/16 21:59 11/28/16 10:00 4 GM Ondansetron HCl (Zofran Tab) 4 mg Q6H PRN PO 11/12/16 22:00 12/12/16 21:59 11/29/16 07:47 4 MG Pantoprazole Sodium (Protonix Tab) 40 mg DAILY PO 11/13/16 09:00 12/13/16 08:59 11/29/16 12:23 40 MG Buspirone HCl (Buspar Tab) 10 mg TID PO 11/13/16 09:00 12/13/16 08:59 11/29/16 21:21 10 MG Loperamide HCl (Imodium Cap) 2 mg Q12H PRN PO 11/12/16 22:00 12/12/16 21:59 11/25/16 07:59 2 MG Potassium/ Phosphorus/Sodium (Phospha 250 Neutral 155-852-130 Mg) 1 tab BID PO 11/13/16 09:00 12/13/16 08:59 11/29/16 21:21 1 TAB Mirtazapine (Remeron Tab) 15 mg HS PO 11/13/16 21:00 12/13/16 20:59 11/29/16 21:22 15 MG Glucose (Glucose 40% Gel) 15-30 GRAMS 15 GRAMS... UD PRN PO 11/17/16 12:45 12/17/16 12:44 Glucose (Glucose Chew Tab) 4-8 Tablets 4 Tabl... UD PRN PO 11/17/16 12:45 12/17/16 12:44 Dextrose (Dextrose 50% 50ML Syringe) 25-50ML OF 50% DW IV FOR... UD PRN IV 11/17/16 12:45 12/17/16 12:44 Glucagon (Glucagon Inj) 1 mg UD PRN SQ 11/17/16 12:45 12/17/16 12:44 Polyethylene (Miralax Powder Packet) 17 gm DAILY PRN PO 11/17/16 12:45 12/17/16 12:44 Docusate Sodium (coLACE CAP) 100 mg BID PO 11/17/16 21:00 12/17/16 20:59 11/29/16 12:22 100 MG Al Hydroxide/Mg Hydroxide (Maalox Susp) 15 ml Q4H PRN PO 11/21/16 21:45 12/21/16 21:44 11/21/16 21:56 15 ML Ipratropium [place] (Atrovent 0.02% 0.5MG/2.5ML Neb) 0.5 mg Q4R INH 11/22/16 12:00 12/22/16 11:59 11/30/16 03:30 0.5 MG Miscellaneous Information (Consult Glycemic Management Pharmacy) 1 ea UD PRN N/A 11/23/16 09:47 12/23/16 09:46 Enteral Nutritional Formula (Boost Glucose Control) 0.5 can ACHS PO 11/23/16 11:00 12/23/16 10:59 11/29/16 17:38 0.5 CAN Insulin Glargine (Lantus Solostar Pen) SEE PROTOCOL BID SC 11/24/16 09:00 12/24/16 08:59 11/29/16 21:16 7 UNITS Insulin Aspart (novoLOG ASPART) SLIDING SCALE ACHS SC 11/24/16 21:00 12/24/16 20:59 11/29/16 21:17 1 UNITS Benzonatate (Tessalon Perles Cap) 100 mg TID PRN PO 11/24/16 15:00 12/24/16 14:59 11/27/16 20:58 100 MG Levalbuterol (Xopenex 0.63 Mg/ 3 Ml Neb) 0.63 mg Q4R INH 11/25/16 12:00 12/22/16 11:59 11/30/16 03:30 0.63 MG Oxymetazoline HCl (Afrin 0.05% Nasal [place]) 1 sprays Q6H PRN NA 11/25/16 11:00 12/25/16 10:59 Morphine Sulfate (MoRPHine SULFATE INJ) 3 mg Q3HWA PRN IV 11/27/16 11:45 12/11/16 11:44 Midodrine (Proamatine Tab) 2.5 mg TID@08,,17 PO 11/29/16 08:00 12/29/16 07:59 11/29/16 17:01 2.5 MG Last 24 Hours Test 11/29/16 09:29 11/29/16 11:06 11/29/16 16:30 11/29/16 20:20 Bedside Glucose 128 mg/dl 105 mg/dl 164 mg/dl 169 mg/dl Test 11/30/16 05:34 White Blood Count 13.98 K/uL Red Blood Count 2.56 M/uL Hemoglobin 8.0 g/dL Hematocrit 24.0 % Mean Corpuscular Volume 93.8 fL Mean Corpuscular Hemoglobin 31.3 pg Mean Corpuscular Hemoglobin Concent 33.3 g/dl Platelet Count 89 K/uL Mean Platelet Volume 11.3 fL Neutrophils (%) (Auto) 81.5 % Lymphocytes (%) (Auto) 9.5 % Monocytes (%) (Auto) 7.4 % Eosinophils (%) (Auto) 0.9 % Basophils (%) (Auto) 0.1 % Neutrophils # (Auto) 11.38 K/uL Lymphocytes # (Auto) 1.33 K/uL Monocytes # (Auto) 1.03 K/uL Eosinophils # (Auto) 0.13 K/uL Basophils # (Auto) 0.02 K/uL RDW Standard Deviation 78.8 fL RDW Coefficient of Variation 23.5 % Immature Granulocyte % (Auto) 0.6 % Immature Granulocyte # (Auto) 0.09 K/uL Platelet Estimate DECREASED Anisocytosis PRESENT Sodium Level 139 mmol/L Potassium Level 4.2 mmol/L Chloride Level 103 mmol/L Carbon Dioxide Level 28 mmol/L Anion Gap 8.0 mmol/L Blood Urea Nitrogen 35 mg/dl Creatinine 3.40 mg/dl Est Creatinine Clear Calc Drug Dose 13.9 ml/min Estimated GFR () 14.4 Estimated GFR (Non- 12.5 BUN/Creatinine Ratio 10.2 Random Glucose 155 mg/dl Calcium Level 8.2 mg/dl Assessment & Plan arturo on ckd-getting daily dialysis with gently fluid removal. on midodrine to help with bp while removing fluid. plan on dialysis again today and then re- evaluate over the weekend. Anemia-multifactorial. pt agrees to the procrit and will dose it today. hg stable but below goal of 10 to 11.
[2016-11-30] MEDS ORDERED: ALBUMIN HUMAN 25% 12.5 GM/50 ML VIAL IV SCH (07:30)
[2016-11-30] MEDS ORDERED: EPOETIN ALFA 4000 UNITS/ML VIAL IV. SCH (07:30)
[2016-11-30] MEDS: BOOST GLUCOSE CONTROL PO SCH ×4 (07:30→19:30)
[2016-11-30] MEDS: INSULIN ASPART 100 UNITS/ML 3 ML PEN SC SCH ×4 (08:18→21:50)
[2016-11-30] MEDS: INSULIN GLARGINE SOLOSTAR 100 UNITS/ML 3 ML PEN SC SCH ×2 (08:19→21:50)
[2016-11-30] MEDS: DOCUSATE SODIUM 100 MG CAP PO SCH ×2 (08:22→19:32)
[2016-11-30] MEDS: MIDODRINE 2.5 MG TAB PO SCH ×3 (08:22→17:50)
[2016-11-30] MEDS: POT PHOSPHATE MONOBASIC W/ SOD TAB PO SCH ×2 (08:23→19:32)
[2016-11-30] MEDS: PANTOprazole SOD 40 MG TAB PO SCH (08:23)
[2016-11-30] MEDS: CHOLESTYRAMINE LIGHT 4 GM PKT PO SCH ×2 (10:00→19:30)
--- NOTE | 2016-11-30 18:07 | Progress Note ---
Internal Med Progress Note Date of Service: Nov 30, 2016. Provider Documentation: SUBJECTIVE: sob is better nausea is better and ate better today no chest pain afebrile no cough OBJECTIVE: Vital Signs-as noted below Exam: General-alert and awake. ENT-normal hearing Neck-no neck masses Lungs-cta b/l no wheezing or crackles Heart-s1 and s2 heard regular rhythm no murmurs Abdomen-soft bowel sounds present non tender no distension Extremities-no edema no erythema Neuro-alert and oriented moves extremities Lab data as noted below. ASSESSMENT & PLAN: This is a 76 year old female with a PMH of CKD stage IV, DM2, HTN, HLD, GERD, hiatal hernia, MORRISON cirrhosis presented with a fall and found to have elevated troponin and creatinine levels ACUTE HYPOXIC RESPIRATORY FAILURE SECONDARY TO RIGHT PLEURAL EFFUSION POSSIBLE ASPIRATION Pneumonitis PULMONARY EDEMA pleural effusion and pulmonary edema mostly from renal failure and liver cirrhosis s/p Thoracentesis 11/23/[address] Phoenix drained 800cc PF studies ordered on Zosyn IV Day 10/19- and stopped Speech Therapy Eval: Dental soft, slippery diet received Solumedrol 40mg IV bid received on Lasix 40mg IV + albumin crea still rising s/p right IJ tunnel catheter nephrology initialed dialyses 11/27/16 to continue dialysis as per nephrology may need assembler metal furniture dialysis ACUTE RENAL FAILURE ON Chronic Kidney Disease stage IV creatinine on admission 2.5 Creatine on 11/01/16 was 1.7 Nephrology on board received Lasix 40mg IV + albumin BID crea still rising Initiated on HD as above MORRISON cirrhosis with some pleural effusion, likely hepatic hydrothorax GI reconsulted Liver US to quantify ascites: minimal repeat liver US: small to moderate ascites monitor for progression, may need Paracentesis on HD now will monitor Elevated Troponin Level NSTEMI mostly demand ischemia from hypoxia Possible related to recent fall and elevated creatine no chest pain, no EKG changes, no significant findings on echo Mechanical Fall in the setting of Orthostatic Hypotension Norvasc was discontinued Midodrine was discontinued due to elevated BP Continue PT/OT midodrine 2.5mg tid restarted 11/29/16 will monitor BP improved Hypotension Midodrine restarted will monitor Thrombocytopenia Related to MORRISON ascites Platelet 85 Depression/Anxiety Prozac was discontinued on Remeron stable Hiatal Hernia/GERD nonsurgical continue PPI quality management coordinator consulted Boost BID added as per quality management coordinator DM2 diet-controlled last Ha1c ~ 6.4% on 09/29 DVT ppx SCDs ambulation due to low plt, no anticoagulation CODE STATUS FULL CODE DISPOSITION to be determined will consult palliative care pt/ot social service for d/c planning Vital Signs: Date Time Temp Pulse Resp B/P (MAP) Pulse Ox O2 Delivery O2 Flow Rate FiO2 11/30/16 16:33 Nasal Cannula 2.0 11/30/16 15:46 37.1 102 22 120/50 (73) 94 Nasal Cannula 2.0 11/30/16 15:30 101 16 95 Nasal Cannula 2.0 11/30/16 14:34 104 106/44 (64) 11/30/16 12:26 36.5 104 16 125/44 (71) 99 Nasal Cannula 2.0 11/30/16 12:05 36.6 95 122/53 (76) 11/30/16 12:00 Nasal Cannula 2.0 11/30/16 11:45 98 112/50 11/30/16 11:30 98 114/48 11/30/16 11:15 97 115/52 11/30/16 11:15 97 18 96 Nasal Cannula 2.0 11/30/16 11:00 93 113/45 11/30/16 10:45 98 114/55 11/30/16 10:30 99 121/49 11/30/16 10:15 96 110/50 11/30/16 10:00 98 117/48 11/30/16 09:45 99 87/50 11/30/16 09:30 99 119/55 11/30/16 09:24 36.5 101 129/48 (75) 11/30/16 09:15 101 123/52 11/30/16 09:00 100 124/57 11/30/16 08:55 100 125/56 11/30/16 08:01 36.7 104 20 140/54 (82) 91 Nasal Cannula 2.0 11/30/16 08:00 Nasal Cannula 2.0 11/30/16 06:58 97 18 94 Nasal Cannula 2.0 11/30/16 04:00 Nasal Cannula 2.0 11/30/16 04:00 37.1 104 18 142/60 (87) 93 2.0 11/30/16 03:30 99 18 94 Nasal Cannula 2.0 11/30/16 00:44 36.8 99 16 116/46 (69) 95 2.0 11/30/16 00:00 Nasal Cannula 2.0 11/29/16 23:02 101 18 99 Nasal Cannula 2.0 11/29/16 20:00 Nasal Cannula 2.0 11/29/16 19:28 105 18 98 Nasal Cannula 2.0 11/29/16 19:15 37.0 106 22 118/56 (76) 97 Nasal Cannula 2.0 Lab Results: Results Past 24 Hours Test 11/29/16 20:20 11/30/16 05:34 11/30/16 06:33 11/30/16 11:32 Range/Units Bedside Glucose 169 171 101 70-90 mg/dl White Blood Count 13.98 4.8-10.8 K/uL Red Blood Count 2.56 4.2-5.4 M/uL Hemoglobin 8.0 12.0-16.0 g/dL Hematocrit 24.0 37-47 % Mean Corpuscular Volume 93.8 80-100 fL Mean Corpuscular Hemoglobin 31.3 25-34 pg Mean Corpuscular Hemoglobin Concent 33.3 32-36 g/dl Platelet Count 89 130-400 K/uL Mean Platelet Volume 11.3 7.4-10.4 fL Neutrophils (%) (Auto) 81.5 % Lymphocytes (%) (Auto) 9.5 % Monocytes (%) (Auto) 7.4 % Eosinophils (%) (Auto) 0.9 % Basophils (%) (Auto) 0.1 % Neutrophils # (Auto) 11.38 1.4-6.5 K/uL Lymphocytes # (Auto) 1.33 1.2-3.4 K/uL Monocytes # (Auto) 1.03 0.11-0.59 K/uL Eosinophils # (Auto) 0.13 0-0.5 K/uL Basophils # (Auto) 0.02 0-0.2 K/uL RDW Standard Deviation 78.8 36.4-46.3 fL RDW Coefficient of Variation 23.5 11.5-14.5 % Immature Granulocyte % (Auto) 0.6 % Immature Granulocyte # (Auto) 0.09 0.00-0.02 K/uL Platelet Estimate DECREASED Anisocytosis PRESENT Sodium Level 139 136-145 mmol/L Potassium Level 4.2 3.5-5.1 mmol/L Chloride Level 103 98-107 mmol/L Carbon Dioxide Level 28 21-32 mmol/L Anion Gap 8.0 3-11 mmol/L Blood Urea Nitrogen 35 7-18 mg/dl Creatinine 3.40 0.60-1.20 mg/dl Est Creatinine Clear Calc Drug Dose 13.9 ml/min Estimated GFR () 14.4 Estimated GFR (Non- 12.5 BUN/Creatinine Ratio 10.2 10-20 Random Glucose 155 70-99 mg/dl Calcium Level 8.2 8.5-10.1 mg/dl Test 11/30/16 16:25 Range/Units Bedside Glucose 174 70-90 mg/dl
[2016-11-30] MEDS: MIRTAZAPINE TAB 15 MG TAB PO SCH (19:32)
[2016-11-30] MEDS: ATORVASTATIN 10 MG TAB PO SCH (19:32)
[2016-12-01] VITALS (13 sets, daily range): BP systolic 121–149; BP diastolic 45–57; PULSE 93–103; TEMP 36.7–36.9; O2SAT 92–96
[2016-12-01] MEDS: LEVALBUTEROL 0.63MG/3 ML NEB INH SCH ×6 (01:54→23:13)
[2016-12-01] MEDS: IPRATROPIUM BROMIDE NEB SOLN 0.02% 2.5 ML VIAL INH SCH ×6 (01:54→23:13)
[2016-12-01 06:51] LABS: CALCIUM 8.6 mg/dl (8.5-10.1); POTASSIUM 4.3 mmol/L (3.5-5.1)
[2016-12-01] MEDS: CHOLESTYRAMINE LIGHT 4 GM PKT PO SCH ×2 (07:26→22:00)
[2016-12-01] MEDS: BOOST GLUCOSE CONTROL PO SCH ×4 (07:27→21:14)
[2016-12-01] MEDS: DOCUSATE SODIUM 100 MG CAP PO SCH ×2 (07:29→21:07)
[2016-12-01] MEDS: PANTOprazole SOD 40 MG TAB PO SCH (07:29)
[2016-12-01] MEDS: POT PHOSPHATE MONOBASIC W/ SOD TAB PO SCH ×2 (07:29→21:07)
[2016-12-01] MEDS: MIDODRINE 2.5 MG TAB PO SCH ×3 (07:29→17:07)
[2016-12-01] MEDS: INSULIN ASPART 100 UNITS/ML 3 ML PEN SC SCH ×4 (07:53→21:00)
[2016-12-01] MEDS: INSULIN GLARGINE SOLOSTAR 100 UNITS/ML 3 ML PEN SC SCH ×2 (07:54→21:13)
--- NOTE | 2016-12-01 09:52 | Pharmacy Progress Note ---
Glycemic Control Progress Note Date of Service Dec 01, 2016. Scope Glycemic Pharmacist consulted for glycemic control to write orders per [facility] inpatient glycemic control protocol. Objective Accuchecks BSG (last 24hrs): Test 11/30/16 11:32 11/30/16 16:25 11/30/16 20:21 12/01/16 05:47 Bedside Glucose 101 mg/dl (70-90) 174 mg/dl (70-90) 205 mg/dl (70-90) Random Glucose 151 mg/dl (70-99) Test 12/01/16 07:01 Bedside Glucose 154 mg/dl (70-90) HbA1c: Test 11/18/16 06:40 Hemoglobin A1c 6.8 % (4.5-5.6) H Recent Pertinent Medications Outpatient Anti-diabetic Regimen: * diet controlled The patient is currently receiving: * Basal insulin: Lantus 14 units every 12 hours * Correctional Insulin: Regular Correction per scale ACHS Goal Range: Low 100 mg/dL - High 140 mg/dL Correction Factor: 30 mg/dL/unit * Prandial insulin: Per carb ratio of 1 unit per 10 grams CHO consumed Risk Factors for Insulin Resistance: * Recent Surgery: POD 4 for insertion of permcath * Diet: type 2 diabetic diet Outpatient Anti-Diabetic Meds diabetic diet Assessment & Plan ASSESSMENT: * ADA & AACE recommend a goal blood sugar range 140-180 mg/dl for the majority of critically ill & non-critically ill patients. However, more stringent targets may be selected in individual cases. Will utilize more stringent goal of 110-140mg/dl based on patient age & comorbidities. Additionally, tighter glycemic control is warranted to facilitate infection healing. * Ms Ng is a 76 y/o F admitted for a R pleural effusion after a fall at home. She has had several admissions in the past couple of months. The patient has had difficult with breathing and coughing; it is believed she recently aspirated. Her hospital stay has been complicated by worsening kidney function necessitating daily dialysis, MORRISON with ascites and esophageal varices. The patient underwent a thoracentesis and then a perm catheter insertion (now POD 4) . * The patient's fasting blood sugar this morning was 154 mg/dL which was reduced from 171 mg/dL yesterday. Continue Lantus 14 units SQ BID. Patient mostly requiring basal insulin but her food intake is low. This fasting is reasonable in a 76 y/o F on dialysis. * Pre-prandial blood sugars are slightly higher than goal blood sugar range. Will continue current regimen as blood sugars fluctuate greatly depending on how much patient eats and discrepancies in carbohydrate intake documented vs Boost intake documented. Carbohydrates from Boost may not be covered correctly so will continue to monitor. * Daily insulin dose fluctuating with yesterday requiring 43 units/day and the day before 27 units. Believe that patient will require around 50-60 units whenever her diet improves. Continue current regimen. PLAN FOR INPATIENT GLYCEMIC CONTROL: * Basal insulin with LANTUS 14 units SQ BID * Correctional Insulin with NOVOLOG per scale ACHS * Goal Range: Low 110 mg/dL - High 140 mg/dL * Correction Factor: 30 mg/dL/unit * Nutritional / Prandial insulin per carb ratio of 1 unit per 10 grams CHO consumed RECOMMENDATIONS FOR DISCHARGE * Patient's HbA1C is reasonably controlled for age and co-morbidities. May continue diet control at home. * Please note that the plan above was derived based on current level of insulin resistance and hospital stress. These recommendations are appropriate for inpatient admission only. Plan of care upon discharge will need to be reassessed to avoid potential outpatient hypo/hyperglycemia. Thank you.
[2016-12-01] MEDS ORDERED: OXYCODONE/ACETAMINOPHEN 5-325 TAB PO PRN (13:30)
--- NOTE | 2016-12-01 18:41 | Progress Note ---
Internal Med Progress Note Date of Service: Dec 01, 2016. Provider Documentation: SUBJECTIVE: patient says sob is better while resting but when gets and walk getting sob after short distance denies chest pain didn't eat much afebrile OBJECTIVE: Vital Signs-as noted below Exam: General-alert and awake. ENT-normal hearing Neck-no neck masses Lungs-cta b/l no wheezing or crackles Heart-s1 and s2 heard regular rhythm no murmurs Abdomen-soft bowel sounds present non tender no distension Extremities-no edema no erythema Neuro-alert and oriented moves extremities Lab data as noted below. ASSESSMENT & PLAN: This is a 76 year old female with a PMH of CKD stage IV, DM2, HTN, HLD, GERD, hiatal hernia, MORRISON cirrhosis presented with a fall and found to have elevated troponin and creatinine levels ACUTE HYPOXIC RESPIRATORY FAILURE SECONDARY TO RIGHT PLEURAL EFFUSION POSSIBLE ASPIRATION Pneumonitis PULMONARY EDEMA pleural effusion and pulmonary edema mostly from renal failure and liver cirrhosis s/p Thoracentesis 11/23/[address] Phoenix drained 800cc PF studies ordered on Zosyn IV Day 10/19- and stopped Speech Therapy Eval: Dental soft, slippery diet received Solumedrol 40mg IV bid received on Lasix 40mg IV + albumin crea still rising s/p right IJ tunnel catheter nephrology initialed dialyses 11/27/16 to continue dialysis as per nephrology may need [facility] dialysis to continue same patient ok with palliative care consult ACUTE RENAL FAILURE ON Chronic Kidney Disease stage IV creatinine on admission 2.5 Creatine on 11/01/16 was 1.7 Nephrology on board received Lasix 40mg IV + albumin BID crea still rising Initiated on HD as above MORRISON cirrhosis with some pleural effusion, likely hepatic hydrothorax GI reconsulted Liver US to quantify ascites: minimal repeat liver US: small to moderate ascites monitor for progression, may need Paracentesis on HD now will get repeat US will monitor Stable conditions: Elevated Troponin Level NSTEMI mostly demand ischemia from hypoxia Possible related to recent fall and elevated creatine no chest pain, no EKG changes, no significant findings on echo Mechanical Fall in the setting of Orthostatic Hypotension Norvasc was discontinued Midodrine was discontinued due to elevated BP Continue PT/OT midodrine 2.5mg tid restarted 11/29/16 will monitor BP improved Hypotension Midodrine restarted will monitor Thrombocytopenia Related to MORRISON ascites Platelet 85 Depression/Anxiety Prozac was discontinued on Remeron stable Hiatal Hernia/GERD nonsurgical continue PPI apprentice cosmetologist consulted Boost BID added as per apprentice cosmetologist DM2 diet-controlled last Ha1c ~ 6.4% on 09/29 DVT ppx SCDs ambulation due to low plt, no anticoagulation CODE STATUS FULL CODE DISPOSITION to be determined will consult palliative care pt/ot social service for d/c planning Vital Signs: Date Time Temp Pulse Resp B/P (MAP) Pulse Ox O2 Delivery O2 Flow Rate FiO2 12/01/16 16:12 96 Nasal Cannula 2.0 12/01/16 16:05 97 16 95 Nasal Cannula 2.0 12/01/16 15:25 36.8 100 18 145/53 (83) 93 Nasal Cannula 2.0 12/01/16 12:36 96 Nasal Cannula 2.0 12/01/16 11:58 36.7 93 19 131/45 (73) 95 Nasal Cannula 2.0 12/01/16 11:22 99 16 96 Nasal Cannula 2.0 12/01/16 08:14 36.7 97 20 133/55 (81) 95 Nasal Cannula 2.0 12/01/16 08:01 96 Nasal Cannula 2.0 12/01/16 07:03 94 16 96 Nasal Cannula 2.0 12/01/16 04:30 36.8 101 22 121/56 (77) 96 Nasal Cannula 2.0 12/01/16 04:00 Nasal Cannula 2.0 12/01/16 00:05 36.9 103 20 149/57 (87) 92 Nasal Cannula 2.0 12/01/16 00:00 Nasal Cannula 2.0 11/30/16 20:00 Nasal Cannula 2.0 11/30/16 19:36 37.2 105 20 138/48 (78) 96 Nasal Cannula 2.0 11/30/16 19:17 106 16 95 Nasal Cannula 2.0 Lab Results: Results Past 24 Hours Test 11/30/16 20:21 12/01/16 05:47 12/01/16 07:01 12/01/16 11:06 Range/Units Bedside Glucose 205 154 117 70-90 mg/dl Sodium Level 136 136-145 mmol/L Potassium Level 4.3 3.5-5.1 mmol/L Chloride Level 102 98-107 mmol/L Carbon Dioxide Level 25 21-32 mmol/L Anion Gap 9.0 3-11 mmol/L Blood Urea Nitrogen 24 7-18 mg/dl Creatinine 3.00 0.60-1.20 mg/dl Est Creatinine Clear Calc Drug Dose 15.3 ml/min Estimated GFR () 16.8 Estimated GFR (Non- 14.5 BUN/Creatinine Ratio 8.0 10-20 Random Glucose 151 70-99 mg/dl Calcium Level 8.6 8.5-10.1 mg/dl Test 12/01/16 16:05 Range/Units Bedside Glucose 160 70-90 mg/dl
[2016-12-01] MEDS: MIRTAZAPINE TAB 15 MG TAB PO SCH (21:07)
[2016-12-01] MEDS: ATORVASTATIN 10 MG TAB PO SCH (21:07)
[2016-12-02] VITALS (22 sets, daily range): BP systolic 93–179; BP diastolic 38–80; PULSE 69–109; TEMP 36.6–36.7; O2SAT 88–99
[2016-12-02] MEDS: IPRATROPIUM BROMIDE NEB SOLN 0.02% 2.5 ML VIAL INH SCH ×6 (03:07→23:15)
[2016-12-02] MEDS: LEVALBUTEROL 0.63MG/3 ML NEB INH SCH ×6 (03:07→23:15)
[2016-12-02 06:44] LABS: BUN/CREATININE RATIO 8.3 (10-20); CALCIUM 8.6 mg/dl (8.5-10.1); POTASSIUM 4.8 mmol/L (3.5-5.1)
[2016-12-02] MEDS: BOOST GLUCOSE CONTROL PO SCH ×4 (07:00→21:00)
[2016-12-02] MEDS: INSULIN ASPART 100 UNITS/ML 3 ML PEN SC SCH ×4 (07:00→20:51)
[2016-12-02] MEDS: MIDODRINE 2.5 MG TAB PO SCH ×2 (07:36→14:29)
[2016-12-02] MEDS: DOCUSATE SODIUM 100 MG CAP PO SCH ×2 (07:37→20:46)
[2016-12-02] MEDS: PANTOprazole SOD 40 MG TAB PO SCH (07:37)
[2016-12-02] MEDS: INSULIN GLARGINE SOLOSTAR 100 UNITS/ML 3 ML PEN SC SCH ×2 (07:56→20:52)
[2016-12-02] MEDS ORDERED: VANCOMYCIN CONSULT ACTIVE PRN (08:00)
[2016-12-02] MEDS ORDERED: PIPERACILL/TAZOBAC CONSULT ACTIVE PRN (08:00)
[2016-12-02] MEDS ORDERED: PIPERACILL/TAZOBAC IV 4.5 GM in DEXTROSE 5% 100ML 100 ML IV SCH (08:00)
[2016-12-02] MEDS ORDERED: VANCOMYCIN INJ 1,500 MG in SODIUM CHLORIDE 0.9% 500ML 500 ML IV ONE (08:00)
[2016-12-02] MEDS ORDERED: PIPERACILL/TAZOBAC IV 3.375 GM in DEXTROSE 5% 100ML IV ONE (08:30)
--- NOTE | 2016-12-02 08:31 | DIAGNOSTIC IMAGING REPORT ---
SINGLE VIEW CHEST CLINICAL HISTORY: Chest congestion. FINDINGS: An AP, portable, upright chest radiograph is compared to study dated 11/26/2016 and correlated with chest CT dated 11/22/2016. A right internal jugular central venous catheter is new from previous. The cardiac silhouette is obscured. There is evidence of pulmonary vascular congestion. There is chronic elevation of left hemidiaphragm. There are moderate right and small left pleural effusions with associated consolidation. These have enlarged from previous. No pneumothorax is seen. The skeletal structures are osteopenic. The bony thorax is grossly intact. Cholecystectomy clips are identified in the right upper quadrant. IMPRESSION: 1. There is evidence of pulmonary vascular congestion. 2. Pleural effusions have enlarged from 11/26/2016. 3. Bibasilar consolidation likely represents atelectasis. Clinical correlation will be required. 4. A right internal jugular central venous catheter is new from previous. Electronically signed by: Ty Montano M.D. 12/02/2016 8:30 AM Dictated Date/Time: 12/02/2016 8:28 AM
[2016-12-02] MEDS: POT PHOSPHATE MONOBASIC W/ SOD TAB PO SCH ×2 (09:00→20:53)
--- NOTE | 2016-12-02 09:40 | DIAGNOSTIC IMAGING REPORT ---
CT SCAN OF THE CHEST WITHOUT IV CONTRAST CLINICAL HISTORY: Dyspnea. COMPARISON STUDY: Chest x-ray dated 12/02/2016. Chest CT scans dated 11/22/2016 and 09/05/2016. TECHNIQUE: CT scan of the thorax was performed from the thoracic inlet to the upper abdomen. Images are reviewed in the axial, sagittal, and coronal planes. IV contrast was not administered for this examination as per the referring clinician. The examination is degraded by motion artifact. A dose lowering technique was utilized adhering to the principles of ALARA. CT DOSE: 173.07 mGy.cm FINDINGS: Thyroid: Imaged portions of the thyroid gland are mildly enlarged and heterogeneous in attenuation. Thoracic aorta: There is atherosclerotic calcification of the thoracic aorta, which is normal in caliber and demonstrates standard 3-vessel arch anatomy. A right internal jugular central venous catheter is in place. Heart: The heart is enlarged and there is a small pericardial effusion. The pulmonary trunk is dilated, measuring 3.1 cm in diameter. This suggests pulmonary artery hypertension. Lungs and pleural spaces: Evaluation of the lung parenchyma is degraded by motion artifact. There is chronic elevation of left hemidiaphragm. There is a large right pleural effusion with near-complete atelectasis of the right lung. This has significantly increased in size from 11/22/2016. A small pleural effusion is seen on the left with left basilar consolidation. Mild airspace opacities are present in the left upper lobe. The trachea and central airways are clear. Mediastinum: There is no mediastinal lymphadenopathy. Betty: Not well assessed without IV contrast. Axillae: There is no axillary lymphadenopathy. Upper abdomen: There is a large hiatal hernia, with the majority the stomach located in the thoracic cavity. Nodularity of the hepatic surface contour suggests changes of cirrhosis. The spleen is enlarged. Perihepatic ascites is noted. Skeletal structures: The skeletal structures are osteopenic. No lytic or blastic bony lesions are seen. IMPRESSION: 1. There is a large right pleural effusion with near-complete atelectasis the right lung. This has significantly increased in size from 11/22/2016. 2. There is a small left pleural effusion with left basilar consolidation. This likely represents atelectasis. Clinical correlation will be required. 3. Cardiomegaly. 4. Mild groundglass change is seen throughout the left upper lobe. This could represent a component of pulmonary edema and/or an infectious/inflammatory pneumonitis. Clinical correlation will be essential. 5. Cirrhotic liver morphology with evidence of portal hypertension. 6. Large hiatal hernia. Electronically signed by: Ty Montano M.D. 12/02/2016 9:38 AM Dictated Date/Time: 12/02/2016 9:33 AM
[2016-12-02] MEDS: CHOLESTYRAMINE LIGHT 4 GM PKT PO SCH ×2 (10:00→20:53)
[2016-12-02] MEDS ORDERED: FENTANYL CITRATE INJ 50 MCG/1 ML 2 ML VIAL ONE (11:02)
--- NOTE | 2016-12-02 11:49 | Procedure Note ---
Procedure Note Date of Service Dec 02, 2016. Procedure Note Critical Care Medicine Procedure Date: 12/02/16 Procedure: Thal-quick Tube Thoracostomy Pre-procedure Diagnosis: recurrent right pleural effusion, acute hypoxic respiratory failure Post-procedure Diagnosis: same as above Prior to Procedure: Informed Consent: The risks, benefits, indications, potential complications, and alternatives were explained to the patient/family and informed consent obtained. Attending Staff: Adilene Leija D.O. Resident/Physician Military Nurse: NA Indications: The patient is a 76 y/o female with acute hypoxic respiratory failure secondary to compressive atelectasis secondary to right pleural effusion The identity of the patient was confirmed and a bedside time out was performed. Description of Procedure: Patient positioned, prepped and draped in usual sterile fashion. Fluid collection identified at bedside by US on the right side. 1% Lidocaine without epinephrine (5 mL) was used to anesthetize the area. Using dynamic ultrasound guidance, A Thal-Quick chest tube tray kit was used to enter the plural space, pleural fluid was aspirated, and a wire was introduced through the needle. The tract was dilated serially, and the 16 Fr thoracostomy tube was inserted via seldinger technique to 10 cm to the skin, and secured with 2-0 silk suture. Post procedure chest x-ray pending. Complications: None Findings: blood tinged serous fluid was removed Total Fluid Removed: 1600 mL, then clamped Color of Fluid: bloody tinged Sent for: Gram Stain, culture, cell count, LDH, Estimated blood loss: none Images obtained are saved for permanent record Yes
[2016-12-02] MEDS ORDERED: FENTANYL CITRATE INJ 50 MCG/1 ML 2 ML VIAL IV PRN (12:00)
--- NOTE | 2016-12-02 12:11 | DIAGNOSTIC IMAGING REPORT ---
SINGLE VIEW CHEST CLINICAL HISTORY: Chest tube placement. FINDINGS: An AP, portable, upright chest radiograph is compared to chest x-ray and chest CT performed earlier the same day 12/02/2016. The examination is degraded by portable technique and patient rotation. A right internal jugular central venous catheter is unchanged in position. The cardiac silhouette is obscured. Pulmonary gastric congestion appears improved from previous. There is chronic elevation of left hemidiaphragm. A chest tube has been placed at the right lung base. There is a small residual right pleural effusion which has decreased in size from earlier today. There is a small right apical pneumothorax with approximately 1.5 cm pleural separation. A small left pleural effusion is identified with left basilar consolidation. The skeletal structures are osteopenic. The bony thorax is grossly intact. Cholecystectomy clips are identified in the right upper quadrant. IMPRESSION: 1. A chest tube is in place at the right lung base. There is a small residual right pleural effusion which has significantly decreased in size from earlier today. 2. There is a small right apical pneumothorax. 3. There is a small left pleural effusion with left basilar consolidation, similar to previous. 4. Congestive change appears improved from previous. Electronically signed by: Ty Montano M.D. 12/02/2016 12:09 PM Dictated Date/Time: 12/02/2016 12:07 PM
[2016-12-02 12:27] LABS: BASO % 0.1 %; BASO ABS # 0.03 K/uL (0-0.2); EOS % 0.1 %; HEMATOCRIT 26.8 % (37-47); IG% 0.5 %; LYMPH % 4.1 %; LYMPH ABS # 0.82 K/uL (1.2-3.4); MEAN CELL VOLUME 95.4 fL (80-100); MEAN CORPUSCULAR HEMOGLOBIN 31.3 pg (25-34); NEUT % 92.2 %; PLATELET COUNT 121 K/uL (130-400); RED BLOOD COUNT 2.81 M/uL (4.2-5.4); WHITE BLOOD COUNT 20.05 K/uL (4.8-10.8)
--- NOTE | 2016-12-02 12:29 | Critical Care Consultation ---
Critical Care Consultation Date of Consultation: Dec 02, 2016. Attending Physician: Federico Stephenson MD Reason for Consultation: Acute hypoxic respiratory failure secondary to compressive atelectasis secondary to large recurrent right pleural effusion secondary either hepatic insufficiency secondary to fatty liver disease or renal insufficiency or combination thereof. History of Present Illness Patient was initially admitted on 11/13/2016 secondary to generalized weakness and falling. Patient was found to have an acute kidney injury without significant recovery ultimately leading to placement on dialysis on 11/27/2016, she underwent a insertion of her right internal jugular permacath on 2016. Due to a right-sided pleural effusion she has been seen by pulmonary and initially underwent a thoracentesis on 11/23/2016 with removal of 800 mL of fluid. Per pulmonary note she was found to have a transudate of pleural effusion, right upper lobe 1.57 m groundglass nodule with recommended CT follow- up in 6 weeks, possible aspiration pneumonia completing a total of 7 days of Zosyn 11/20/2016 2 November 26 2016. A second course of Zosyn was started today . She has been followed by gastroenterology, it does not appear she has undergone a paracentesis at this time. She underwent a echocardiogram on 11/13/2016 finding of which: EF 65-70%, normal TAPSE, there is a loculated pericardial effusion noted, grade 1 diastolic dysfunction. I have been consult in secondary to acute hypoxic respiratory failure in the setting of recurrent pleural effusion leading to compressive atelectasis. Past Medical/Surgical History As noted above Type 2 diabetes Dyslipidemia Hypertension Chronic kidney disease stage IV Esophageal varices GERD Asthma Nonalcoholic steatohepatitis Pericardial effusion Pleural effusion Ascites of the liver Acute kidney injury Family History Cardiac disorder MOTHER FH: cancer FATHER (lung CA) Social History Smoking Status: Never Smoker Alcohol Use: none Drug Use: none Marital Status: Housing Status: lives with family Allergies Coded Allergies: Erythromycin (Unverified Allergy, Mild, STOMACH PAIN, 10/23/16) Butorphanol (Unverified Allergy, Unknown, LOOPY, 10/23/16) Home Medications Scheduled Amlodipine (Norvasc), 2.5 MG PO DAILY Atorvastatin (Lipitor), 10 MG PO HS Buspirone Hcl (Buspirone Hcl), 10 MG PO TID Cholestyramine (Cholestyramine Light), 4 GM PO BID@ Fluoxetine (Prozac), 80 MG PO DAILY Furosemide (Lasix), 40 MG PO DAILY Lutein (Hm Lutein), 20 MG PO DAILY Midodrine (Midodrine HCl), 5 MG PO TID@,, Multiple Vitamins W/ Minerals (Icaps), 1 CAP PO DAILY Pantoprazole (Protonix), 40 MG PO DAILY Potassium Phosphate Monobasic (K-Phos), 250 MG PO BID Scheduled PRN Albuterol (Ventolin Hfa), 2 PUFFS INH Q4 PRN for SOB/Wheezing Loperamide Hcl (Loperamide Hcl), 2 MG PO UD PRN for Constipation Ondansetron Hcl (Zofran), 4 MG PO Q6H PRN for Nausea Current Inpatient Medications Current Inpatient Medications Medications (Trade) Dose Ordered Sig/Edilson Route Start Time Stop Time Status Last Admin Dose Admin Albuterol (Ventolin Hfa Inhaler) 2 puffs Q4 PRN INH 11/12/16 22:00 12/12/16 21:59 Atorvastatin Calcium (Lipitor Tab) 10 mg HS PO 11/13/16 21:00 12/13/16 20:59 12/01/16 21:07 10 MG Cholestyramine Resin (Questran Powder Light) 4 gm BID@ PO 11/12/16 22:00 12/12/16 21:59 11/28/16 10:00 4 GM Ondansetron HCl (Zofran Tab) 4 mg Q6H PRN PO 11/12/16 22:00 12/12/16 21:59 11/29/16 07:47 4 MG Pantoprazole Sodium (Protonix Tab) 40 mg DAILY PO 11/13/16 09:00 12/13/16 08:59 12/02/16 07:37 40 MG Buspirone HCl (Buspar Tab) 10 mg TID PO 11/13/16 09:00 12/13/16 08:59 12/02/16 07:37 10 MG Loperamide HCl (Imodium Cap) 2 mg Q12H PRN PO 11/12/16 22:00 12/12/16 21:59 11/25/16 07:59 2 MG Potassium/ Phosphorus/Sodium (Phospha 250 Neutral 155-852-130 Mg) 1 tab BID PO 11/13/16 09:00 12/13/16 08:59 12/02/16 09:00 1 TAB Mirtazapine (Remeron Tab) 15 mg HS PO 11/13/16 21:00 12/13/16 20:59 12/01/16 21:07 15 MG Glucose (Glucose 40% Gel) 15-30 GRAMS 15 GRAMS... UD PRN PO 11/17/16 12:45 12/17/16 12:44 Glucose (Glucose Chew Tab) 4-8 Tablets 4 Tabl... UD PRN PO 11/17/16 12:45 12/17/16 12:44 Dextrose (Dextrose 50% 50ML Syringe) 25-50ML OF 50% DW IV FOR... UD PRN IV 11/17/16 12:45 12/17/16 12:44 Glucagon (Glucagon Inj) 1 mg UD PRN SQ 11/17/16 12:45 12/17/16 12:44 Polyethylene (Miralax Powder Packet) 17 gm DAILY PRN PO 11/17/16 12:45 12/17/16 12:44 Docusate Sodium (coLACE CAP) 100 mg BID PO 11/17/16 21:00 12/17/16 20:59 12/01/16 21:07 100 MG Al Hydroxide/Mg Hydroxide (Maalox Susp) 15 ml Q4H PRN PO 11/21/16 21:45 12/21/16 21:44 11/21/16 21:56 15 ML Ipratropium [place] (Atrovent 0.02% 0.5MG/2.5ML Neb) 0.5 mg Q4R INH 11/22/16 12:00 12/22/16 11:59 12/02/16 07:30 0.5 MG Miscellaneous Information (Consult Glycemic Management Pharmacy) 1 ea UD PRN N/A 11/23/16 09:47 12/23/16 09:46 Enteral Nutritional Formula (Boost Glucose Control) 0.5 can ACHS PO 11/23/16 11:00 12/23/16 10:59 12/02/16 07:00 0.5 CAN Insulin Aspart (novoLOG ASPART) SLIDING SCALE ACHS SC 11/24/16 21:00 12/24/16 20:59 12/01/16 17:11 1 UNITS Benzonatate (Tessalon Perles Cap) 100 mg TID PRN PO 11/24/16 15:00 12/24/16 14:59 11/27/16 20:58 100 MG Levalbuterol (Xopenex 0.63 Mg/ 3 Ml Neb) 0.63 mg Q4R INH 11/25/16 12:00 12/22/16 11:59 12/02/16 07:30 0.63 MG Oxymetazoline HCl (Afrin 0.05% Nasal [place]) 1 sprays Q6H PRN NA 11/25/16 11:00 12/25/16 10:59 Morphine Sulfate (MoRPHine SULFATE INJ) 3 mg Q3HWA PRN IV 11/27/16 11:45 12/11/16 11:44 Midodrine (Proamatine Tab) 2.5 mg TID@,, PO 11/29/16 08:00 12/29/16 07:59 12/02/16 07:36 2.5 MG Insulin Glargine (Lantus Solostar Pen) 14 units BID SC 12/01/16 21:00 12/31/16 20:59 12/02/16 07:56 14 UNITS Oxycodone/ Acetaminophen (Percocet 5-325mg Tab) 1 tab Q4H PRN PO 12/01/16 13:30 12/15/16 13:29 Piperacillin Sod/ Tazobactam Sod (Consult) 1 ea UD PRN N/A 12/02/16 08:00 01/01/17 07:59 Vancomycin HCl (Consult) 1 ea UD PRN N/A 12/02/16 08:00 01/01/17 07:59 Piperacillin Sod/ Tazobactam Sod 3.375 gm/Dextrose 115 ml @ 28.75 mls/ hr Q12@0400,1600 IV 12/02/16 16:00 12/09/16 15:59 Fentanyl Citrate (Fentanyl Inj) 100 mcg ONE PRN IV 12/02/16 12:00 12/02/16 12:30 Review of Systems Constitutional: + weakness, + fatigue Eyes: No worsening of vision, No eye pain, No redness, No discharge, No diplopia, No problem reported Cardiovascular: + orthopnea, + PND, + edema, No chest pain, No claudication, No palpitations, No problem reported Abdomen: No nausea, No vomiting Neurologic: + weakness (generalized), No memory loss Physical Exam Date Time Temp Pulse Resp B/P (MAP) Pulse Ox O2 Delivery O2 Flow Rate FiO2 12/02/16 10:35 36.6 95 28 91 15.0 12/02/16 08:52 91 Nasal Cannula 2.0 12/02/16 07:30 95 28 88 Nasal Cannula 2.0 12/02/16 07:27 36.6 98 34 151/62 (91) 92 Nasal Cannula 3.0 12/02/16 04:00 Nasal Cannula 2.0 12/02/16 04:00 36.7 96 22 139/57 (84) 92 Nasal Cannula 2.0 12/02/16 00:02 Nasal Cannula 2.0 12/02/16 00:00 36.7 103 20 179/80 (113) 92 Nasal Cannula 2.0 12/01/16 20:00 Nasal Cannula 2.0 12/01/16 19:41 36.9 98 18 121/57 (78) 93 Nasal Cannula 2.0 12/01/16 19:00 98 16 92 Nasal Cannula 2.0 12/01/16 16:12 96 Nasal Cannula 2.0 12/01/16 16:05 97 16 95 Nasal Cannula 2.0 12/01/16 15:25 36.8 100 18 145/53 (83) 93 Nasal Cannula 2.0 12/01/16 12:36 96 Nasal Cannula 2.0 General Appearance: mild distress Head: normocephalic, atraumatic Eyes: PERRLA, scleral icterus (mild) Neck: normal range of motion, no tenderness Respiratory: rhonchi (scattered and left lung), other (dullness to percussion right chest) Cardiovasular: regular rate/rhythm Abdomen: non tender Back: normal inspection Upper Extremities: edema (1+) Lower Extremities: edema (2+) Pulses: radial (R) (2+), radial (L) (2+) Neuro: alert, oriented x 3 Laboratory Results Last 24 Hours Test 12/01/16 16:05 12/01/16 20:42 12/02/16 06:01 12/02/16 06:27 Bedside Glucose 160 mg/dl 127 mg/dl 137 mg/dl Sodium Level 137 mmol/L Potassium Level 4.8 mmol/L Chloride Level 102 mmol/L Carbon Dioxide Level 24 mmol/L Anion Gap 11.0 mmol/L Blood Urea Nitrogen 33 mg/dl Creatinine 4.00 mg/dl Est Creatinine Clear Calc Drug Dose 11.7 ml/min Estimated GFR () 11.9 Estimated GFR (Non- 10.2 BUN/Creatinine Ratio 8.3 Random Glucose 140 mg/dl Calcium Level 8.6 mg/dl Test 12/02/16 11:45 12/02/16 11:58 Diagnostic Results SINGLE VIEW CHEST CLINICAL HISTORY: Chest tube placement. FINDINGS: An AP, portable, upright chest radiograph is compared to chest x-ray and chest CT performed earlier the same day 12/02/2016. The examination is degraded by portable technique and patient rotation. A right internal jugular central venous catheter is unchanged in position. The cardiac silhouette is obscured. Pulmonary gastric congestion appears improved from previous. There is chronic elevation of left hemidiaphragm. A chest tube has been placed at the right lung base. There is a small residual right pleural effusion which has decreased in size from earlier today. There is a small right apical pneumothorax with approximately 1.5 cm pleural separation. A small left pleural effusion is identified with left basilar consolidation. The skeletal structures are osteopenic. The bony thorax is grossly intact. Cholecystectomy clips are identified in the right upper quadrant. IMPRESSION: 1. A chest tube is in place at the right lung base. There is a small residual right pleural effusion which has significantly decreased in size from earlier today. 2. There is a small right apical pneumothorax. 3. There is a small left pleural effusion with left basilar consolidation, similar to previous. 4. Congestive change appears improved from previous. Venous duplex report from 11/26/2016 reviewed and no obvious DVT in bilateral lower extremities Abdominal ultrasound dated 11/25/2016 reviewed: [id number] ascites increased since exam of 11/20/2016 Assessment & Plan Reason Critically Ill: Patient critically ill due to acute hypoxic respiratory failure requiring 15 L oxygen mask and urgent pleural drainage PLAN: Neuro: Pain well-controlled * At risk for hepatic encephalopathy * Will check ammonia level IV baseline Resp: * Acute hypoxic respiratory failure * Large right recurrent pleural effusion, transudative in nature * Status post pleural drain placed 12/02/2016 * Right upper lobe groundglass nodule, follow-up CT recommended in 6 weeks * Patient finished course of Zosyn for aspiration pneumonia * Started on Zosyn and they will check pro calcitonin and treat according to procalcitonin levels up to 7 day course CV: * Loculated pericardial effusion * Will repeat limited echo to see if interval change in size * On Midrin for hypotension associated with dialysis Fluids/Renal: Chronic kidney disease stage IV now on hemodialysis * Nephrology following ID: Finish seven-day course of Zosyn for possible aspiration pneumonia * Day 1 of 7 second course Zosyn * Will treat to clinical response and procalcitonin levels GI/Nutrition: * Hepatic insufficiency secondary to nonalcoholic steatohepatitis * Small amount of ascites, no indication for paracentesis at this time * Low salt diet, will consider additional propranolol for cirrhosis and associated ascites * Additional daily Feosol and vitamin C, and zinc Heme: Chronic anemia * Epo dosing per nephrology Endocrine: * Type 2 diabetes, on insulin sliding scale blood sugars within acceptable range Vascular access: Right permacath Peripheral IVs CODE STATUS: Full code I have personally spent 60 minutes of critical care time in the direct management of this patient. This is a life/limb threatening event. This includes time spent evaluating patient, direct bedside care, chart review, placing orders, interpretation of diagnostic studies, discussion with consultants, patient, and family members, as well as other required patient management activities. This time is exclusive of all separately billable procedures, and teaching time and separate from and in addition to any other critical care service time.
[2016-12-02 12:33] LABS: MEAN CORPUSCULAR HGB CONC 32.8 g/dl (32-36)
[2016-12-02 12:39] LABS: INR 1.4 (0.9-1.1); PARTIAL THROMBOPLASTIN RATIO 1.3; PROTHROMBIN TIME (PATIENT) 15.4 SECONDS (9.0-12.0)
[2016-12-02 12:50] LABS: ANISOCYTOSIS PRESENT; COMPLETE YES
[2016-12-02 13:02] LABS: PLEURAL FLUID APPEARANCE BLOODY; PLEURAL FLUID COLOR RED; PLEURAL FLUID SOURCE RIGHT LUNG; PLEURAL FLUID WBC (A) 162 /uL
[2016-12-02 13:02] LABS: ALB/GLOB RATIO 0.5 (0.9-2); BUN/CREATININE RATIO 8.3 (10-20); CALCIUM 8.7 mg/dl (8.5-10.1); CREATININE 4.3 mg/dl (0.60-1.20); POTASSIUM 5.5 mmol/L (3.5-5.1); PREALBUMIN 9.7 mg/dl (20-40)
--- NOTE | 2016-12-02 15:07 | Nephrology Progress Note ---
Nephrology Progress Note Date of Service: Dec 02, 2016. Subjective moved to ICU this am d/t worsening hypoxia > CT chest showed recurrent R large pl effusion; got chest tube placed w/ 1.6 L blood tinged fluid removed adn studies pending; 02 requirement much improved and weaning down; c/o some pain at CT insertion site but not intolerable; no other pain, dypsnea currently, edema, N Objective Date Time Temp Pulse Resp B/P (MAP) Pulse Ox O2 Delivery O2 Flow Rate FiO2 12/02/16 10:35 36.6 95 28 91 15.0 12/02/16 08:52 91 Nasal Cannula 2.0 12/02/16 07:30 95 28 88 Nasal Cannula 2.0 12/02/16 07:27 36.6 98 34 151/62 (91) 92 Nasal Cannula 3.0 12/02/16 04:00 Nasal Cannula 2.0 12/02/16 04:00 36.7 96 22 139/57 (84) 92 Nasal Cannula 2.0 12/02/16 00:02 Nasal Cannula 2.0 12/02/16 00:00 36.7 103 20 179/80 (113) 92 Nasal Cannula 2.0 12/01/16 20:00 Nasal Cannula 2.0 12/01/16 19:41 36.9 98 18 121/57 (78) 93 Nasal Cannula 2.0 12/01/16 19:00 98 16 92 Nasal Cannula 2.0 12/01/16 16:12 96 Nasal Cannula 2.0 12/01/16 16:05 97 16 95 Nasal Cannula 2.0 12/01/16 15:25 36.8 100 18 145/53 (83) 93 Nasal Cannula 2.0 Physical Exam: General-on o2 face mask; nad, a& O x 3 Eyes-eomi ENT-dry mm Neck-supple Lungs-very diminished Heart-regularly spaced beats in 100s; 2+ BL ankle/pedal edema Abdomen-soft NT + bs Extremities-no c/c Neuro-mendes, fluent speech Current Inpatient Medications Medications (Trade) Dose Ordered Sig/Edilson Route Start Time Stop Time Status Last Admin Dose Admin Albuterol (Ventolin Hfa Inhaler) 2 puffs Q4 PRN INH 11/12/16 22:00 12/12/16 21:59 Atorvastatin Calcium (Lipitor Tab) 10 mg HS PO 11/13/16 21:00 12/13/16 20:59 12/01/16 21:07 10 MG Cholestyramine Resin (Questran Powder Light) 4 gm BID@, PO 11/12/16 22:00 12/12/16 21:59 11/28/16 10:00 4 GM Ondansetron HCl (Zofran Tab) 4 mg Q6H PRN PO 11/12/16 22:00 12/12/16 21:59 11/29/16 07:47 4 MG Pantoprazole Sodium (Protonix Tab) 40 mg DAILY PO 11/13/16 09:00 12/13/16 08:59 12/02/16 07:37 40 MG Buspirone HCl (Buspar Tab) 10 mg TID PO 11/13/16 09:00 12/13/16 08:59 12/02/16 07:37 10 MG Loperamide HCl (Imodium Cap) 2 mg Q12H PRN PO 11/12/16 22:00 12/12/16 21:59 11/25/16 07:59 2 MG Potassium/ Phosphorus/Sodium (Phospha 250 Neutral 155-852-130 Mg) 1 tab BID PO 11/13/16 09:00 12/13/16 08:59 12/02/16 09:00 1 TAB Mirtazapine (Remeron Tab) 15 mg HS PO 11/13/16 21:00 12/13/16 20:59 12/01/16 21:07 15 MG Glucose (Glucose 40% Gel) 15-30 GRAMS 15 GRAMS... UD PRN PO 11/17/16 12:45 12/17/16 12:44 Glucose (Glucose Chew Tab) 4-8 Tablets 4 Tabl... UD PRN PO 11/17/16 12:45 12/17/16 12:44 Dextrose (Dextrose 50% 50ML Syringe) 25-50ML OF 50% DW IV FOR... UD PRN IV 11/17/16 12:45 12/17/16 12:44 Glucagon (Glucagon Inj) 1 mg UD PRN SQ 11/17/16 12:45 12/17/16 12:44 Polyethylene (Miralax Powder Packet) 17 gm DAILY PRN PO 11/17/16 12:45 12/17/16 12:44 Docusate Sodium (coLACE CAP) 100 mg BID PO 11/17/16 21:00 12/17/16 20:59 12/01/16 21:07 100 MG Al Hydroxide/Mg Hydroxide (Maalox Susp) 15 ml Q4H PRN PO 11/21/16 21:45 12/21/16 21:44 11/21/16 21:56 15 ML Ipratropium [place] (Atrovent 0.02% 0.5MG/2.5ML Neb) 0.5 mg Q4R INH 11/22/16 12:00 12/22/16 11:59 12/02/16 07:30 0.5 MG Miscellaneous Information (Consult Glycemic Management Pharmacy) 1 ea UD PRN N/A 11/23/16 09:47 12/23/16 09:46 Enteral Nutritional Formula (Boost Glucose Control) 0.5 can ACHS PO 11/23/16 11:00 12/23/16 10:59 12/02/16 07:00 0.5 CAN Insulin Aspart (novoLOG ASPART) SLIDING SCALE ACHS SC 11/24/16 21:00 12/24/16 20:59 12/01/16 17:11 1 UNITS Benzonatate (Tessalon Perles Cap) 100 mg TID PRN PO 11/24/16 15:00 12/24/16 14:59 11/27/16 20:58 100 MG Levalbuterol (Xopenex 0.63 Mg/ 3 Ml Neb) 0.63 mg Q4R INH 11/25/16 12:00 12/22/16 11:59 12/02/16 07:30 0.63 MG Oxymetazoline HCl (Afrin 0.05% Nasal [place]) 1 sprays Q6H PRN NA 11/25/16 11:00 12/25/16 10:59 Morphine Sulfate (MoRPHine SULFATE INJ) 3 mg Q3HWA PRN IV 11/27/16 11:45 12/11/16 11:44 Midodrine (Proamatine Tab) 2.5 mg TID@,,17 PO 11/29/16 08:00 12/29/16 07:59 12/02/16 07:36 2.5 MG Oxycodone/ Acetaminophen (Percocet 5-325mg Tab) 1 tab Q4H PRN PO 12/01/16 13:30 9/2/17 13:29 Piperacillin Sod/ Tazobactam Sod (Consult) 1 ea UD PRN N/A 12/02/16 08:00 01/01/17 07:59 Vancomycin HCl (Consult) 1 ea UD PRN N/A 12/02/16 08:00 01/01/17 07:59 Piperacillin Sod/ Tazobactam Sod 3.375 gm/Dextrose 115 ml @ 28.75 mls/ hr Q12@0400,1600 IV 12/02/16 16:00 12/09/16 15:59 Propranolol HCl (Inderal Tab) 10 mg TID PO 12/02/16 14:00 01/01/17 13:59 Insulin Glargine (Lantus Solostar Pen) SEE PROTOCOL BID SC 12/02/16 21:00 01/01/17 20:59 Ferrous Sulfate (Feosol [place]) 325 mg QAM PO 12/03/16 09:00 01/02/17 08:59 Ascorbic Acid (Vitamin C Tab) 500 mg QAM PO 12/03/16 09:00 01/02/17 08:59 Zinc Sulfate (Zinc Sulfate Cap) 220 mg QAM PO 12/03/16 09:00 01/02/17 08:59 Last 24 Hours Test 12/01/16 16:05 12/01/16 20:42 12/02/16 06:01 12/02/16 06:27 Bedside Glucose 160 mg/dl 127 mg/dl 137 mg/dl Sodium Level 137 mmol/L Potassium Level 4.8 mmol/L Chloride Level 102 mmol/L Carbon Dioxide Level 24 mmol/L Anion Gap 11.0 mmol/L Blood Urea Nitrogen 33 mg/dl Creatinine 4.00 mg/dl Est Creatinine Clear Calc Drug Dose 11.7 ml/min Estimated GFR () 11.9 Estimated GFR (Non- 10.2 BUN/Creatinine Ratio 8.3 Random Glucose 140 mg/dl Calcium Level 8.6 mg/dl Test 12/02/16 11:56 12/02/16 11:58 12/02/16 12:11 12/02/16 13:20 Bedside Glucose 115 mg/dl Pleural Fluid Source RIGHT LUNG Pleural Fluid Color RED Pleural Fluid Appearance BLOODY Pleural Fluid WBC 162 /uL Pleural Fluid RBC 48795 /uL Pleural Fluid Polynuclear WBCs % 31.0 % Pleural Fluid Mononuclear WBCs % 69.0 % Pleural Fluid LDH 97 IU White Blood Count 20.05 K/uL Red Blood Count 2.81 M/uL Hemoglobin 8.8 g/dL Hematocrit 26.8 % Mean Corpuscular Volume 95.4 fL Mean Corpuscular Hemoglobin 31.3 pg Mean Corpuscular Hemoglobin Concent 32.8 g/dl Platelet Count 121 K/uL Mean Platelet Volume 11.0 fL Neutrophils (%) (Auto) 92.2 % Lymphocytes (%) (Auto) 4.1 % Monocytes (%) (Auto) 3.0 % Eosinophils (%) (Auto) 0.1 % Basophils (%) (Auto) 0.1 % Neutrophils # (Auto) 18.46 K/uL Lymphocytes # (Auto) 0.82 K/uL Monocytes # (Auto) 0.61 K/uL Eosinophils # (Auto) 0.02 K/uL Basophils # (Auto) 0.03 K/uL RDW Standard Deviation 80.9 fL RDW Coefficient of Variation 23.5 % Immature Granulocyte % (Auto) 0.5 % Immature Granulocyte # (Auto) 0.11 K/uL Anisocytosis PRESENT Prothrombin Time 15.4 SECONDS Prothromb Time International Ratio 1.4 Activated Partial Thromboplast Time 33.1 SECONDS Partial Thromboplastin Ratio 1.3 Sodium Level 136 mmol/L Potassium Level 5.5 mmol/L Chloride Level 103 mmol/L Carbon Dioxide Level 25 mmol/L Anion Gap 8.0 mmol/L Blood Urea Nitrogen 36 mg/dl Creatinine 4.30 mg/dl Est Creatinine Clear Calc Drug Dose 10.9 ml/min Estimated GFR () 10.9 Estimated GFR (Non- 9.4 BUN/Creatinine Ratio 8.3 Random Glucose 122 mg/dl Calcium Level 8.7 mg/dl Total Bilirubin 2.3 mg/dl Aspartate Amino Transf (AST/SGOT) 107 U/L Alanine Aminotransferase (ALT/SGPT) 38 U/L Alkaline Phosphatase 214 U/L Lactate Dehydrogenase 245 U/L Total Protein 7.0 gm/dl Albumin 2.4 gm/dl Globulin 4.6 gm/dl Albumin/Globulin Ratio 0.5 Prealbumin 9.7 mg/dl Ammonia 14.0 umol/L Date/Time Source Procedure Growth Status 12/02/16 08:30 Nasal MRSA DNA Surveillance Screen - Final Specimen Negative for MRSA by DNA Probe Complete 12/02/16 11:58 Pleural Fluid (Thoracentesis) Right Gram Stain - Final Resulted 12/02/16 11:58 Pleural Fluid (Thoracentesis) Right Bacterial Culture Pending Resulted Other Studies: CT chest today 1. There is a large right pleural effusion with near-complete atelectasis the right lung. This has significantly increased in size from 11/22/2016. 2. There is a small left pleural effusion with left basilar consolidation. This likely represents atelectasis. Clinical correlation will be required. 3. Cardiomegaly. 4. Mild groundglass change is seen throughout the left upper lobe. This could represent a component of pulmonary edema and/or an infectious/inflammatory pneumonitis. Clinical correlation will be essential. 5. Cirrhotic liver morphology with evidence of portal hypertension. 6. Large hiatal hernia. Assessment & Plan 76 yo female with arturo in setting of cirrhosis with aspiration pneumonia. started on midodrine 11/29 to help with bp while removing fluid. on 12/02 had acute hypoxic respiratory failure and moved to ICU > got C Tube on R. arturo on ckd-getting daily dialysis with gentle fluid removal. on midodrine to help with bp while removing fluid. plan on dialysis again tomorrow. had HD on and minimal tolerance of UF (1L only) d/t hypotension. hyperkalemia -- worsening since this am; plan recheck and medical tx if possible Anemia-multifactorial. use Fe, procrit for goal of 10 to [address] effusion and w/ acute hypoxic respiratory failure -s/p 12/02 chest tube w/ 1.6L fluid removed Care coordinated w/ Dr Stephenson.
--- NOTE | 2016-12-02 15:31 | ECHOCARDIOGRAM REPORT ---
*NOTICE TO RECEIVING [employer] This information is strictly Confidential and protected under [place] law. [place] law prohibits you from making any further disclosure of this information unless further disclosure is expressly permitted by the written consent of the person to whom it pertains or is authorized by law. A general authorization for the release of medical or other information is not sufficient for this purpose. Hospital accepts no responsibility if the information is made available to any other person, INCLUDING THE PATIENT. Interpretation Summary * Name: SANTIAGO JOHN Study Date: 12/02/2016 01:40 PM BP: 151/62 mmHg * Patient Location: .MSICU\[id number]\E105\S\1 HR: 95 * : 1940 (M/d/yyy) Gender: Female Height: 64 in * Age: 76 yrs Ethnicity: [place] Weight: 161 lb * Ordering Physician: Luis Leija * Performed By: Mirtha Jacobson * * Reason For Study: LIMITED FOLLOW-UP, PERICARDIAL EFFUSION * BSA: 1.8 m2 * Compared to prior study, changes are noted. * -- Conclusions -- * Small loculated apical and posterior pericardial effusion. * There are no echocardiographic indications of cardiac tamponade. * Compared to prior study, pericardial effusion is smaller. Procedure Details * Left Ventricle Ejection Fraction = >70 %. * Pericardium/Pleural Small loculated apical and posterior pericardial effusion. There are no echocardiographic indications of cardiac tamponade. * * MMode 2D Measurements and Calculations * IVSd 1.1 cm * IVSs 1.8 cm * * LVIDd 3.8 cm * LVIDs 2.4 cm * LVPWd 0.83 cm * LVPWs 0.97 cm * * IVS/LVPW 1.3 * FS 38.6 % * EDV(Teich) 63.4 ml * ESV(Teich) 19.2 ml * EF(Teich) 69.7 % * * EDV(cubed) 56.5 ml * ESV(cubed) 13.1 ml * EF(cubed) 76.9 % * % IVS thick 67.1 % * % LVPW thick 17.4 % * * LV mass(C)d 112.3 grams * LV mass(C)dI 62.9 grams/m\S\2 * LV mass(C)s 103.3 grams * LV mass(C)sI 57.9 grams/m\S\2 * * SV(Teich) 44.2 ml * SI(Teich) 24.8 ml/m\S\2 * SV(cubed) 43.5 ml * SI(cubed) 24.4 ml/m\S\2 * * LA dimension 2.7 cm * * *
[2016-12-02] MEDS: PIPERACILL/TAZOBAC IV 3.375 GM in DEXTROSE 5% 100ML IV SCH (16:47)
[2016-12-02] MEDS: PROPRANOLOL HCL 10 MG TAB PO SCH ×2 (16:48→20:48)
[2016-12-02 17:24] LABS: BUN/CREATININE RATIO 8.6 (10-20); CALCIUM 8.7 mg/dl (8.5-10.1); CREATININE 4.3 mg/dl (0.60-1.20); POTASSIUM 5.2 mmol/L (3.5-5.1)
--- NOTE | 2016-12-02 17:43 | Progress Note ---
Internal Med Progress Note Date of Service: Dec 02, 2016. Provider Documentation: SUBJECTIVE: patient was having difficulty breathing today morning was tachypneic afebrile some chest pressure initially required 2lts oxygen but deteriorated and required 15lts oxygen to keep sats around 90% ct scan showed large right pleural effusion and complete collapse of right lung was transferred to ICU and s/p chest tube placement and 1600ml fluid taken out currently saturating finr on 3-4 lts oxygen nasal canula Currently feeling much better patient and family ok to d/w palliative care tomorrow about future goals. OBJECTIVE: Vital Signs-as noted below Exam: General-alert and awake. and oriented. Was in resp distress earlier ENT-normal hearing Neck-no neck masses Lungs-cta b/l tachypneic(earlier)no wheezing bibasilar crackles present Heart-s1 and s2 heard regular rhythm no murmurs Abdomen-soft bowel sounds present non tender mild distension Extremities-lower extremity edema present no erythema Neuro-alert and oriented moves extremities Lab data as noted below. ASSESSMENT & PLAN: This is a 76 year old female with a PMH of CKD stage IV, DM2, HTN, HLD, GERD, hiatal hernia, MORRISON cirrhosis presented with a fall and found to have elevated troponin and creatinine levels. fall thpought to be from orthostatic hypotension. Norvasc was stopped and midodrine continued. Patient received varying doses of Lasix and albumin for volume overload and sob. Lasix was stopped as Creatine was rising and was s/p thoracocentesis on 11/23/16. Nephrology initiated HD as cr worsening and not responding to diuretics. Seemed to tolerated HD ok. But again today 12/02/16 became sob and was in Resp distress requiring 15lts oxygen and Ct scan showed Large right pleural effusion with complete collapse of right lung. Was transferred to ICU and s/p right chest tube placed and 1600ml bloody fluid drained out. Res status improved after chest tube placement. Acute hypoxic Resp failure(12/02/16) secondary to large right pleural effusion with complete collapse of right lung transferred to ICU and s/p right chest tube placed - 1600ml bloody fluid drained post procedure patient feeling much better and resp status much improved Pleural effusion mostly from liver failure and renal failure- vermin exterminator goal? on iv zosyn started today- await cx from thoracocentesis Appreciate critical care help similar episode prior ACUTE HYPOXIC RESPIRATORY FAILURE ( 11/20/16)( SECONDARY TO RIGHT PLEURAL EFFUSION POSSIBLE ASPIRATION Pneumonitis PULMONARY EDEMA pleural effusion and pulmonary edema mostly from renal failure and liver cirrhosis s/p Thoracentesis 11/23/[address] Phoenix drained 800cc cx no growth received Zosyn IV Day 10/19- and stopped Speech Therapy Eval: Dental soft, slippery diet received Solumedrol 40mg IV bid received on Lasix 40mg IV + albumin crea was still rising s/p right IJ tunnel catheter nephrology initialed dialyses 11/27/16 to continue dialysis as per nephrology may need vermin exterminator dialysis patient and family ok with palliative care consult ACUTE RENAL FAILURE ON Chronic Kidney Disease stage IV creatinine on admission 2.5 Creatine on 11/01/16 was 1.7 Nephrology on board received Lasix 40mg IV + albumin BID crea was still rising Initiated on HD as above MORRISON cirrhosis with some pleural effusion, likely hepatic hydrothorax GI reconsulted Liver US to quantify ascites: minimal repeat liver US: small to moderate ascites monitor for progression, may need Paracentesis on HD now repeating US- will f/u will monitor Elevated Troponin Level on presentation NSTEMI mostly demand ischemia from hypoxia Possible related to recent fall and elevated creatine no chest pain, no EKG changes, no significant findings on echo stable Mechanical Fall in the setting of Orthostatic Hypotension on presentation Norvasc was discontinued Midodrine was discontinued during initial hospital stay due to elevated BP midodrine 2.5mg tid restarted 11/29/16 will monitor BP improved pt/ot when stable Hypotension Midodrine restarted will monitor Thrombocytopenia Related to MORRISON ascites Platelet 121 today Depression/Anxiety Prozac was discontinued on Remeron stable Hiatal Hernia/GERD nonsurgical continue PPI sustainability project manager consulted Boost BID added as per sustainability project manager DM2 diet-controlled last Ha1c ~ 6.4% on 09/29 DVT ppx SCDs ambulation due to low plt, no anticoagulation CODE STATUS FULL CODE DISPOSITION transferred to ICU consulted palliative care pt/ot when able social service for d/c planning Vital Signs: Date Time Temp Pulse Resp B/P (MAP) Pulse Ox O2 Delivery O2 Flow Rate FiO2 12/02/16 16:00 94 Nasal Cannula 6.0 12/02/16 15:00 103 125/63 (83) 94 Nasal Cannula 4.0 12/02/16 14:30 104 96 8/20/17 14:00 103 123/56 (78) 95 Oxymask 10.0 12/02/16 13:30 103 96 12/02/16 13:00 104 106/50 (68) 96 Oxymask 12.0 12/02/16 12:30 103 99 12/02/16 12:15 90 Oxymask 15.0 12/02/16 12:00 36.6 102 105/53 (70) 95 Oxymask 15.0 12/02/16 10:35 36.6 95 28 91 15.0 12/02/16 08:52 91 Nasal Cannula 2.0 12/02/16 07:30 95 28 88 Nasal Cannula 2.0 12/02/16 07:27 36.6 98 34 151/62 (91) 92 Nasal Cannula 3.0 12/02/16 04:00 Nasal Cannula 2.0 12/02/16 04:00 36.7 96 22 139/57 (84) 92 Nasal Cannula 2.0 12/02/16 00:02 Nasal Cannula 2.0 12/02/16 00:00 36.7 103 20 179/80 (113) 92 Nasal Cannula 2.0 12/01/16 20:00 Nasal Cannula 2.0 12/01/16 19:41 36.9 98 18 121/57 (78) 93 Nasal Cannula 2.0 12/01/16 19:00 98 16 92 Nasal Cannula 2.0 Lab Results: Results Past 24 Hours Test 12/01/16 20:42 12/02/16 06:01 12/02/16 06:27 12/02/16 11:56 Range/Units Bedside Glucose 127 137 115 70-90 mg/dl Sodium Level 137 136-145 mmol/L Potassium Level 4.8 3.5-5.1 mmol/L Chloride Level 102 98-107 mmol/L Carbon Dioxide Level 24 21-32 mmol/L Anion Gap 11.0 3-11 mmol/L Blood Urea Nitrogen 33 7-18 mg/dl Creatinine 4.00 0.60-1.20 mg/dl Est Creatinine Clear Calc Drug Dose 11.7 ml/min Estimated GFR () 11.9 Estimated GFR (Non- 10.2 BUN/Creatinine Ratio 8.3 10-20 Random Glucose 140 70-99 mg/dl Calcium Level 8.6 8.5-10.1 mg/dl Test 12/02/16 11:58 12/02/16 12:11 12/02/16 13:20 12/02/16 16:46 Range/Units Pleural Fluid Source RIGHT LUNG Pleural Fluid Color RED Pleural Fluid Appearance BLOODY Pleural Fluid WBC 162 /uL Pleural Fluid RBC 19330 /uL Pleural Fluid Polynuclear WBCs % 31.0 % Pleural Fluid Mononuclear WBCs % 69.0 % Pleural Fluid LDH 97 IU White Blood Count 20.05 4.8-10.8 K/uL Red Blood Count 2.81 4.2-5.4 M/uL Hemoglobin 8.8 12.0-16.0 g/dL Hematocrit 26.8 37-47 % Mean Corpuscular Volume 95.4 80-100 fL Mean Corpuscular Hemoglobin 31.3 25-34 pg Mean Corpuscular Hemoglobin Concent 32.8 32-36 g/dl Platelet Count 121 130-400 K/uL Mean Platelet Volume 11.0 7.4-10.4 fL Neutrophils (%) (Auto) 92.2 % Lymphocytes (%) (Auto) 4.1 % Monocytes (%) (Auto) 3.0 % Eosinophils (%) (Auto) 0.1 % Basophils (%) (Auto) 0.1 % Neutrophils # (Auto) 18.46 1.4-6.5 K/uL Lymphocytes # (Auto) 0.82 1.2-3.4 K/uL Monocytes # (Auto) 0.61 0.11-0.59 K/uL Eosinophils # (Auto) 0.02 0-0.5 K/uL Basophils # (Auto) 0.03 0-0.2 K/uL RDW Standard Deviation 80.9 36.4-46.3 fL RDW Coefficient of Variation 23.5 11.5-14.5 % Immature Granulocyte % (Auto) 0.5 % Immature Granulocyte # (Auto) 0.11 0.00-0.02 K/uL Anisocytosis PRESENT Prothrombin Time 15.4 9.0-12.0 SECONDS Prothromb Time International Ratio 1.4 0.9-1.1 Activated Partial Thromboplast Time 33.1 21.0-31.0 SECONDS Partial Thromboplastin Ratio 1.3 Sodium Level 136 136-145 mmol/L Potassium Level 5.5 3.5-5.1 mmol/L Chloride Level 103 98-107 mmol/L Carbon Dioxide Level 25 21-32 mmol/L Anion Gap 8.0 3-11 mmol/L Blood Urea Nitrogen 36 7-18 mg/dl Creatinine 4.30 0.60-1.20 mg/dl Est Creatinine Clear Calc Drug Dose 10.9 ml/min Estimated GFR () 10.9 Estimated GFR (Non- 9.4 BUN/Creatinine Ratio 8.3 10-20 Random Glucose 122 70-99 mg/dl Calcium Level 8.7 8.5-10.1 mg/dl Total Bilirubin 2.3 0.2-1 mg/dl Aspartate Amino Transf (AST/SGOT) 107 15-37 U/L Alanine Aminotransferase (ALT/SGPT) 38 12-78 U/L Alkaline Phosphatase 214 45-117 U/L Lactate Dehydrogenase 245 84-246 U/L Total Protein 7.0 6.4-8.2 gm/dl Albumin 2.4 3.4-5.0 gm/dl Globulin 4.6 2.5-4.0 gm/dl Albumin/Globulin Ratio 0.5 0.9-2 Prealbumin 9.7 20-40 mg/dl Ammonia 14.0 11-32 umol/L Procalcitonin 1.43 0-0.5 ng/ml Microbiology Results 12/02/16 MRSA DNA Surveillance Screen - Final, Complete Specimen Negative for MRSA by DNA Probe 12/02/16 Gram Stain - Final, Resulted 12/02/16 Bacterial Culture, Resulted Pending
--- NOTE | 2016-12-02 18:54 | DIAGNOSTIC IMAGING REPORT ---
ULTRASOUND BILATERAL LOWER EXTREMITY VENOUS CLINICAL HISTORY: Lower extremity edema. COMPARISON STUDY: Bilateral lower extremity ultrasound dated 11/26/2016. TECHNIQUE: Real-time, grayscale, and color Doppler sonography of the deep veins of the right and left lower extremity was performed from the inguinal crease to the calf. Compression and augmentation were utilized. FINDINGS: There is no sonographic evidence of deep venous thrombosis identified in the right or left lower extremity. The common femoral, superficial femoral, and popliteal veins are patent and normally compressible bilaterally. The greater saphenous vein and the profunda femoris vein at the junction with the common femoral vein are clear in both legs. Question trace nonocclusive and chronic appearing thrombus in the left peroneal vein. The remainder of the visualized calf veins are patent bilaterally. Subcutaneous soft tissue edema is present in both legs. IMPRESSION: 1. There is no convincing sonographic evidence of acute deep venous thrombosis identified in the right or left lower extremity. 2. Question trace and chronic appearing deep venous thrombosis in the left peroneal vein. Electronically signed by: Ty Montano M.D. 12/02/2016 6:53 PM Dictated Date/Time: 12/02/2016 6:50 PM
--- NOTE | 2016-12-02 19:10 | DIAGNOSTIC IMAGING REPORT ---
ULTRASOUND ASCITES CHECK CLINICAL HISTORY: Abdominal distention. COMPARISON STUDY: Abdominal CT dated 10/23/2016. FINDINGS: Real-time grayscale sonography of all 4 quadrants of the abdomen was performed to assess for abdominal ascites. There is a small volume of abdominal ascites identified. Cirrhotic liver morphology is incidentally noted. IMPRESSION: Small volume of abdominal ascites. Electronically signed by: Ty Montano M.D. 12/02/2016 7:08 PM Dictated Date/Time: 12/02/2016 7:07 PM
[2016-12-02] MEDS: MIRTAZAPINE TAB 15 MG TAB PO SCH (20:45)
[2016-12-02] MEDS: ATORVASTATIN 10 MG TAB PO SCH (20:47)
[2016-12-03] VITALS (49 sets, daily range): BP systolic 71–117; BP diastolic 32–59; PULSE 60–78; TEMP 36.5–36.9; O2SAT 83–100
[2016-12-03] MEDS: LEVALBUTEROL 0.63MG/3 ML NEB INH SCH ×2 (03:08→07:12)
[2016-12-03] MEDS: IPRATROPIUM BROMIDE NEB SOLN 0.02% 2.5 ML VIAL INH SCH ×2 (03:08→07:12)
[2016-12-03] MEDS: PIPERACILL/TAZOBAC IV 3.375 GM in DEXTROSE 5% 100ML IV SCH ×2 (04:20→16:42)
[2016-12-03 06:00] LABS: HEMATOCRIT 23.8 % (37-47); MEAN CELL VOLUME 94.4 fL (80-100); MEAN CORPUSCULAR HEMOGLOBIN 30.6 pg (25-34); MEAN CORPUSCULAR HGB CONC 32.4 g/dl (32-36); RED BLOOD COUNT 2.52 M/uL (4.2-5.4); WHITE BLOOD COUNT 16.57 K/uL (4.8-10.8)
[2016-12-03 06:07] LABS: MEAN PLATELET VOLUME 10.7 fL (7.4-10.4); PLATELET COUNT 95 K/uL (130-400)
[2016-12-03 06:40] LABS: BUN/CREATININE RATIO 9.6 (10-20); CALCIUM 8.1 mg/dl (8.5-10.1); CREATININE 4.8 mg/dl (0.60-1.20); MAGNESIUM 2.1 mg/dl (1.8-2.4); PHOSPHORUS 7.8 mg/dl (2.5-4.9); POTASSIUM 5.1 mmol/L (3.5-5.1)
[2016-12-03] MEDS: BOOST GLUCOSE CONTROL PO SCH ×4 (06:45→21:00)
[2016-12-03] MEDS ORDERED: EPOETIN ALFA 10,000 UNITS/ML VIAL IV. ONE (07:30)
--- NOTE | 2016-12-03 07:50 | DIAGNOSTIC IMAGING REPORT ---
CHEST ONE VIEW PORTABLE CLINICAL HISTORY: 76 years-old Female presenting with Chest Tube in place for Recurrent Effusion. TECHNIQUE: Portable upright AP view of the chest was obtained. COMPARISON: 12/02/2016. FINDINGS: Right internal jugular tunneled dialysis catheter terminates in the right atrium. Large bore right pleural drain terminates at the lung base. Cardiomediastinal silhouette within normal limits with partial obscuration of the left heart border secondary to left hemidiaphragm elevation, which is unchanged. Slight interval decrease in pulmonary vascular prominence. Persistent small right apical pneumothorax, which measures 13 mm in thickness, previously 15 mm. Minimal blunting of the right costophrenic angle may suggest trace effusion. Left basilar opacity secondary to diaphragmatic elevation. No other focal infiltrate. Osseous structures normal. Upper abdomen normal. IMPRESSION: 1. Persistent small right apical pneumothorax, stable to slightly decreased in size. 2. Right pleural drain position at the lung base. Electronically signed by: River Maguire M.D. 12/03/2016 7:49 AM Dictated Date/Time: 12/03/2016 7:45 AM
--- NOTE | 2016-12-03 07:55 | Critical Care Progress Note ---
Critical Care Progress Note Date of Service Dec 03, 2016. ICU Day ICU Day Number: [address] Pandya Subjective Patient is a 76-year-old female admitted to the ICU last evening secondary to respiratory distress. RIGHT Thal quick placed yesterday. No complications noted overnight. Patient reports no discomfort. She reports feeling much better after the chest tube in place actually. She rates her discomfort a 2/ 10. She denies any headaches, chest pain, palpitations, shortness of breath, nausea, vomiting, abdominal pain, or extremity pain. There were no reported events overnight. Objective VITAL SIGNS - Vital signs and nursing notes were reviewed. GENERAL - 76-year-old female appearing her stated age who is in no acute distress. Communicates well with provider and answers questions appropriately. LUNGS - Chest wall symmetric without accessory muscle use, intercostals retractions, or central cyanosis. RIGHT sided Thal quick in place to the RIGHT lateral chest wall with clear yellowish serosanguineous fluid. Normal vesicular breath sounds CTA B/L. No wheezes or rhonchi appreciated. RIGHT greater than left basilar rales appreciated. CARDIAC - RRR with S1/S2. No murmur, rubs, or gallops appreciated. No reproducible tenderness to palpation appreciated over the anterior chest wall. ABDOMEN - Abdominal contour obese and without pulsations or visible masses. BS normoactive all four quadrants. No tenderness or palpable masses appreciated. EXTREMITIES - No clubbing or peripheral cyanosis. Moderate bilateral pretibial edema present. +2/5 radial and dorsalis pedis pulses palpated throughout. +5/5 strength noted in UE/LE bilaterally. NEUROLOGIC - Cranial nerves II through XII grossly intact. Sensory intact to light touch throughout. PSYCH - A&Ox3 and cooperates fully with examiner. Pt is very pleasant and interacts well with examiner. Current SOFA Score SOFA Score Response (Comments) Value Platelets (x10) < 100 2 Bilirubin (mg/dL) 2.0 - 5.9 2 [place] Coma Score 15 0 Level of Hypotension MAP less than 70 1 Creatinine (mg/dL) 3.5 - 4.9 3 Total 8 Assessment & Plan (1) Acute respiratory failure with hypoxia (2) Transudative pleural effusion (3) DM type 2 (diabetes mellitus, type 2) (4) CKD (chronic kidney disease), stage IV (5) Varices, esophageal (6) MORRISON (nonalcoholic steatohepatitis) (7) Asthma (8) Pericardial effusion (9) Ascites of liver (10) Elevated troponin (11) Acute kidney injury Reason Critically Ill: 76-year-old female with acute hypoxic respiratory failure secondary to large recurrent RIGHT pleural effusion requiring ThalQuick Neuro - * CAM ICU: NEGATIVE * History of Depression/Anxiety - well controlled on Remeron. Cardiac - * Hypotension - continue Midodrine while requiring dialysis. * Orthostasis - to be reassessed after HD. * Loculated Pericardial Effusion - likely chronic. * Echo demonstrates no significant changes or restrictive component. * RESULTS: * Small loculated apical and posterior pericardial effusion. * There are no echocardiographic indications of cardiac tamponade. * Compared to prior study, pericardial effusion is smaller. * Elevated Troponin on admission - ruled out during early hospital course. * EKGs for any c/o Chest Pain. * Monitor on Telemetry. Respiratory - * Acute Hypoxic Respiratory Failure Secondary to Compressive Atelectasis from Impressive Recurrent RIGHT Pleural Effusion: * Emergent Thal-Quick placed in ICU with moderate output and resolve of pleural effusion. * Small RIGHT Apical Pneumothorax - not uncommon w/ procedure. Will place on 20 cmH2O suction for the next 24 hours. Will repeat CXR in AM for evaluation. * May consider placement of PleurX Catheter for continued management. * Aspiration Pneumonia. * Finished 7 day course of IV Zosyn. * Started on second 7 day course yesterday in setting of new respiratory distress. Will complete this course. * Will recheck Procalcitonin tomorrow AM. Continue to monitor/trend as needed. * Supplemental O2 as needed. * Wean as tolerated. * Continue to monitor pulse oximetry. GI - * MORRISON w/ Hepatic Insufficiency. * Scant ascites. * Likely contributing to recurrence of RIGHT pleural effusion. * Continue Rx per GI * Portal Hypertension with Esophageal Varices: * Per patient - has never had GI Bleeding. Did have banding x1 performed prophylactically. Was to have f/u appointment, but was hospitalized. * Will monitor for any bleeding. * GERD * Continue PO Protonix RENAL/LYTES - * ROSANGELA on Chronic Kidney Disease IV: * Progressed to need for HD - continue per Nephro recommendations. * Hyperkalemia - HD managed. * Appreciated Nephrology guidance. * Monitor Lytes daily. - * No Clark - Aneuric. ENDO - * History of T2DM: * ISS for goal BSGs. HEME - * Chronic Anemia in the setting of CKD. * Continue Iron supplementation. * Epogen per Nephro. * Improving leukocytosis. Will monitor in the setting of concerns for possible aspirations pneumonia. * Adding Heparin - will monitor Platelets in the setting of borderline thrombocytopenia. ID - * Aspiration Pneumonia: * Finished 7 day course of Zosyn. * Restarted yesterday in setting of Acute Respiratory Failure. Will complete 7 day course. * Trend Procalcitonin levels to gauge clinical response. * Monitor fever curve. LINES/IV ACCESS - * PIVs intact. * RIGHT IJ Permcath in place. * RIGHT Thal-Quick in place to 20 cmH2O suction. DVT PROPHYLAXIS - * Will add Heparin 5,000 U sq BID. Question of chronic DVT of LLE noted on US yesterday. I have personally spent 35 minutes of critical care time in the direct management of this patient. This is a life/limb threatening event. This includes time spent evaluating patient, direct bedside care, chart review, placing orders, interpretation of diagnostic studies, discussion with consultants, patient, and family members, as well as other required patient management activities. This time is exclusive of all separately billable procedures, and teaching time and separate from and in addition to any other critical care service time. Thank you for this consultation allow us to be part of this patient's care. Please refer to my attending physician's documentation for any further recommendations. Resident Physician Supervision Note: I was present with Maninder Hull PA-C during the history and exam. I discussed the case with the resident and agree with the findings and plan as documented in the note. Any exceptions or clarifications are listed here: Patient with respiratory failure secondary to transudative right pleural effusion. Improved after chest tube placement. The etiology is a mix of liver disease and renal disease Will likely benefit from conversion to PleurX catheter. Continue hemodialysis as scheduled Finish course of Zosyn. OOB to chair Physical therapy DVT prophylaxis - SC heparin Documented By: Everette Pandya MD Critical care time spent greater than 25 minutes Consults & Procedures Consultants: KAREL - [facility] Nephrology - Dr. Pacheco Pulm - Dr. [place] Procedures: RIGHT IJ Permcath in place Data Medications: Current Inpatient Medications Medications (Trade) Dose Ordered Sig/Edilson Route Start Time Stop Time Status Last Admin Dose Admin Albuterol (Ventolin Hfa Inhaler) 2 puffs Q4 PRN INH 11/12/16 22:00 12/12/16 21:59 Atorvastatin Calcium (Lipitor Tab) 10 mg HS PO 11/13/16 21:00 12/13/16 20:59 12/02/16 20:47 10 MG Cholestyramine Resin (Questran Powder Light) 4 gm BID@10,22 PO 11/12/16 22:00 12/12/16 21:59 11/28/16 10:00 4 GM Ondansetron HCl (Zofran Tab) 4 mg Q6H PRN PO 11/12/16 22:00 12/12/16 21:59 11/29/16 07:47 4 MG Pantoprazole Sodium (Protonix Tab) 40 mg DAILY PO 11/13/16 09:00 12/13/16 08:59 12/02/16 07:37 40 MG Buspirone HCl (Buspar Tab) 10 mg TID PO 11/13/16 09:00 12/13/16 08:59 12/02/16 20:46 10 MG Loperamide HCl (Imodium Cap) 2 mg Q12H PRN PO 11/12/16 22:00 12/12/16 21:59 11/25/16 07:59 2 MG Potassium/ Phosphorus/Sodium (Phospha 250 Neutral 155-852-130 Mg) 1 tab BID PO 11/13/16 09:00 12/13/16 08:59 12/02/16 09:00 1 TAB Mirtazapine (Remeron Tab) 15 mg HS PO 11/13/16 21:00 12/13/16 20:59 12/02/16 20:45 15 MG Glucose (Glucose 40% Gel) 15-30 GRAMS 15 GRAMS... UD PRN PO 11/17/16 12:45 12/17/16 12:44 Glucose (Glucose Chew Tab) 4-8 Tablets 4 Tabl... UD PRN PO 11/17/16 12:45 12/17/16 12:44 Dextrose (Dextrose 50% 50ML Syringe) 25-50ML OF 50% DW IV FOR... UD PRN IV 11/17/16 12:45 12/17/16 12:44 Glucagon (Glucagon Inj) 1 mg UD PRN SQ 11/17/16 12:45 12/17/16 12:44 Polyethylene (Miralax Powder Packet) 17 gm DAILY PRN PO 11/17/16 12:45 12/17/16 12:44 Docusate Sodium (coLACE CAP) 100 mg BID PO 11/17/16 21:00 12/17/16 20:59 12/02/16 20:46 100 MG Al Hydroxide/Mg Hydroxide (Maalox Susp) 15 ml Q4H PRN PO 11/21/16 21:45 12/21/16 21:44 11/21/16 21:56 15 ML Ipratropium [place] (Atrovent 0.02% 0.5MG/2.5ML Neb) 0.5 mg Q4R INH 11/22/16 12:00 12/22/16 11:59 12/03/16 07:12 0.5 MG Miscellaneous Information (Consult Glycemic Management Pharmacy) 1 ea UD PRN N/A 11/23/16 09:47 12/23/16 09:46 Enteral Nutritional Formula (Boost Glucose Control) 0.5 can ACHS PO 11/23/16 11:00 12/23/16 10:59 12/02/16 16:54 0.5 CAN Insulin Aspart (novoLOG ASPART) SLIDING SCALE ACHS SC 11/24/16 21:00 12/24/16 20:59 12/02/16 20:51 3 UNITS Benzonatate (Tessalon Perles Cap) 100 mg TID PRN PO 11/24/16 15:00 12/24/16 14:59 11/27/16 20:58 100 MG Levalbuterol (Xopenex 0.63 Mg/ 3 Ml Neb) 0.63 mg Q4R INH 11/25/16 12:00 12/22/16 11:59 12/03/16 07:12 0.63 MG Oxymetazoline HCl (Afrin 0.05% Nasal [place]) 1 sprays Q6H PRN NA 11/25/16 11:00 12/25/16 10:59 Morphine Sulfate (MoRPHine SULFATE INJ) 3 mg Q3HWA PRN IV 11/27/16 11:45 12/11/16 11:44 12/02/16 14:29 3 MG Midodrine (Proamatine Tab) 2.5 mg TID@,,17 PO 11/29/16 08:00 12/29/16 07:59 12/02/16 14:29 2.5 MG Oxycodone/ Acetaminophen (Percocet 5-325mg Tab) 1 tab Q4H PRN PO 12/01/16 13:30 12/15/16 13:29 Piperacillin Sod/ Tazobactam Sod (Consult) 1 ea UD PRN N/A 12/02/16 08:00 01/01/17 07:59 Piperacillin Sod/ Tazobactam Sod 3.375 gm/Dextrose 115 ml @ 28.75 mls/ hr Q12@0400,1600 IV 12/02/16 16:00 12/09/16 15:59 12/03/16 04:20 28.75 MLS/HR Propranolol HCl (Inderal Tab) 10 mg TID PO 12/02/16 14:00 01/01/17 13:59 12/02/16 20:48 10 MG Insulin Glargine (Lantus Solostar Pen) SEE PROTOCOL BID SC 12/02/16 21:00 01/01/17 20:59 12/02/16 20:52 14 UNITS Ferrous Sulfate (Feosol Elix) 325 mg QAM PO 12/03/16 09:00 01/02/17 08:59 Ascorbic Acid (Vitamin C Tab) 500 mg QAM PO 12/03/16 09:00 01/02/17 08:59 Zinc Sulfate (Zinc Sulfate Cap) 220 mg QAM PO 12/03/16 09:00 01/02/17 08:59 Epoetin Samm (Procrit Inj) 12,000 units ONE ONCE IV. 12/03/16 07:30 12/03/16 07:31 UNV Heparin Sodium (Porcine) (No Heparin In Dialysis) 1 ea ONE ONCE N/A 12/03/16 07:30 12/03/16 07:31 UNV Albumin Human (Albumin 25%) 25 gm ONE ONCE IV 12/03/16 07:30 12/03/16 07:31 UNV Vital Signs: Date Time Temp Pulse Resp B/P (MAP) Pulse Ox O2 Delivery O2 Flow Rate FiO2 12/03/16 07:14 69 18 95 Nasal Cannula 4.0 12/03/16 07:00 66 20 88/43 (58) 95 12/03/16 06:01 65 18 97/39 (58) 96 12/03/16 05:00 70 15 98/39 (58) 96 12/03/16 04:27 96 Nasal Cannula 4.0 12/03/16 04:00 68 16 98/46 (63) 87 Nasal Cannula 4.0 12/03/16 03:00 66 20 93/39 (57) 91 Nasal Cannula 4.0 12/03/16 02:00 71 17 94/39 (57) 95 Nasal Cannula 4.0 12/03/16 01:00 72 17 93/38 (56) 96 Nasal Cannula 4.0 12/03/16 00:51 96 Nasal Cannula 4.0 12/03/16 00:00 36.7 78 17 97/51 (66) 91 Nasal Cannula 4.0 12/02/16 23:00 69 17 99/42 (61) 93 Nasal Cannula 4.0 12/02/16 22:00 72 18 93/38 (56) 94 Nasal Cannula 4.0 12/02/16 21:00 85 27 125/49 (74) 91 Nasal Cannula 4.0 12/02/16 20:03 96 Nasal Cannula 4.0 12/02/16 20:00 36.7 86 26 125/51 (75) 92 Nasal Cannula 4.0 12/02/16 19:00 86 24 120/62 (81) 93 Nasal Cannula 4.0 12/02/16 18:42 103 18 96 Nasal Cannula 4.0 12/02/16 17:00 109 137/48 (77) 94 Nasal Cannula 4.0 12/02/16 16:00 94 Nasal Cannula 6.0 12/02/16 16:00 36.7 104 122/51 (74) 98 12/02/16 15:00 103 125/63 (83) 94 12/02/16 15:00 103 125/63 (83) 94 Nasal Cannula 4.0 12/02/16 14:30 104 96 12/02/16 14:00 103 123/56 (78) 95 Oxymask 10.0 12/02/16 13:30 103 96 12/02/16 13:00 104 106/50 (68) 96 Oxymask 12.0 12/02/16 12:30 103 99 12/02/16 12:15 90 Oxymask 15.0 12/02/16 12:00 36.6 102 105/53 (70) 95 Oxymask 15.0 12/02/16 10:35 36.6 95 28 91 15.0 12/02/16 08:52 91 Nasal Cannula 2.0 Laboratory Results: Last 24 Hours Test 12/02/16 11:56 12/02/16 11:58 12/02/16 12:11 12/02/16 13:20 Bedside Glucose 115 mg/dl Pleural Fluid Source RIGHT LUNG Pleural Fluid Color RED Pleural Fluid Appearance BLOODY Pleural Fluid WBC 162 /uL Pleural Fluid RBC 87807 /uL Pleural Fluid Polynuclear WBCs % 31.0 % Pleural Fluid Mononuclear WBCs % 69.0 % Pleural Fluid LDH 97 IU White Blood Count 20.05 K/uL Red Blood Count 2.81 M/uL Hemoglobin 8.8 g/dL Hematocrit 26.8 % Mean Corpuscular Volume 95.4 fL Mean Corpuscular Hemoglobin 31.3 pg Mean Corpuscular Hemoglobin Concent 32.8 g/dl Platelet Count 121 K/uL Mean Platelet Volume 11.0 fL Neutrophils (%) (Auto) 92.2 % Lymphocytes (%) (Auto) 4.1 % Monocytes (%) (Auto) 3.0 % Eosinophils (%) (Auto) 0.1 % Basophils (%) (Auto) 0.1 % Neutrophils # (Auto) 18.46 K/uL Lymphocytes # (Auto) 0.82 K/uL Monocytes # (Auto) 0.61 K/uL Eosinophils # (Auto) 0.02 K/uL Basophils # (Auto) 0.03 K/uL RDW Standard Deviation 80.9 fL RDW Coefficient of Variation 23.5 % Immature Granulocyte % (Auto) 0.5 % Immature Granulocyte # (Auto) 0.11 K/uL Anisocytosis PRESENT Prothrombin Time 15.4 SECONDS Prothromb Time International Ratio 1.4 Activated Partial Thromboplast Time 33.1 SECONDS Partial Thromboplastin Ratio 1.3 Sodium Level 136 mmol/L Potassium Level 5.5 mmol/L Chloride Level 103 mmol/L Carbon Dioxide Level 25 mmol/L Anion Gap 8.0 mmol/L Blood Urea Nitrogen 36 mg/dl Creatinine 4.30 mg/dl Est Creatinine Clear Calc Drug Dose 10.9 ml/min Estimated GFR () 10.9 Estimated GFR (Non- 9.4 BUN/Creatinine Ratio 8.3 Random Glucose 122 mg/dl Calcium Level 8.7 mg/dl Total Bilirubin 2.3 mg/dl Aspartate Amino Transf (AST/SGOT) 107 U/L Alanine Aminotransferase (ALT/SGPT) 38 U/L Alkaline Phosphatase 214 U/L Lactate Dehydrogenase 245 U/L Total Protein 7.0 gm/dl Albumin 2.4 gm/dl Globulin 4.6 gm/dl Albumin/Globulin Ratio 0.5 Prealbumin 9.7 mg/dl Ammonia 14.0 umol/L Procalcitonin 1.43 ng/ml Test 12/02/16 16:46 12/02/16 16:52 12/02/16 20:43 12/03/16 01:05 Sodium Level 137 mmol/L Potassium Level 5.2 mmol/L Chloride Level 103 mmol/L Carbon Dioxide Level 26 mmol/L Anion Gap 8.0 mmol/L Blood Urea Nitrogen 37 mg/dl Creatinine 4.30 mg/dl Est Creatinine Clear Calc Drug Dose 10.9 ml/min Estimated GFR () 10.9 Estimated GFR (Non- 9.4 BUN/Creatinine Ratio 8.6 Random Glucose 115 mg/dl Calcium Level 8.7 mg/dl Bedside Glucose 121 mg/dl 228 mg/dl 164 mg/dl Test 12/03/16 05:32 White Blood Count 16.57 K/uL Red Blood Count 2.52 M/uL Hemoglobin 7.7 g/dL Hematocrit 23.8 % Mean Corpuscular Volume 94.4 fL Mean Corpuscular Hemoglobin 30.6 pg Mean Corpuscular Hemoglobin Concent 32.4 g/dl RDW Standard Deviation 81.2 fL RDW Coefficient of Variation 23.7 % Platelet Count 95 K/uL Mean Platelet Volume 10.7 fL Sodium Level 139 mmol/L Potassium Level 5.1 mmol/L Chloride Level 104 mmol/L Carbon Dioxide Level 25 mmol/L Anion Gap 10.0 mmol/L Blood Urea Nitrogen 46 mg/dl Creatinine 4.80 mg/dl Est Creatinine Clear Calc Drug Dose 9.4 ml/min Estimated GFR () 9.5 Estimated GFR (Non- 8.2 BUN/Creatinine Ratio 9.6 Random Glucose 141 mg/dl Calcium Level 8.1 mg/dl Phosphorus Level 7.8 mg/dl Magnesium Level 2.1 mg/dl Problem Qualifiers (1) DM type 2 (diabetes mellitus, type 2): Diabetes mellitus complication status: with unspecified complications Diabetes mellitus fci insulin use: without exterminator helper termite use Qualified Codes : E11.8 - Type 2 diabetes mellitus with unspecified complications (2) Varices, esophageal: Esophageal varices type: unspecified type
[2016-12-03] MEDS: MIDODRINE 2.5 MG TAB PO SCH ×3 (08:20→18:50)
[2016-12-03] MEDS: PANTOprazole SOD 40 MG TAB PO SCH (08:21)
[2016-12-03] MEDS: ASCORBIC ACID 500 MG TAB PO SCH (08:21)
[2016-12-03] MEDS: POT PHOSPHATE MONOBASIC W/ SOD TAB PO SCH ×2 (08:21→21:00)
[2016-12-03] MEDS: ZINC SULFATE 220 MG CAP PO SCH (08:21)
[2016-12-03] MEDS: PROPRANOLOL HCL 10 MG TAB PO SCH ×3 (08:22→21:00)
[2016-12-03] MEDS: FERROUS SULFATE 325 MG/7.4 ML UDP PO SCH (08:23)
[2016-12-03] MEDS: DOCUSATE SODIUM 100 MG CAP PO SCH ×2 (08:23→21:01)
[2016-12-03] MEDS ORDERED: EPOETIN ALFA INJ 12,000 UNITS in SYRINGE 0 ML IV. SCH (08:30)
[2016-12-03] MEDS ORDERED: ALBUT/IPRATROP 3MG/0.5MG NEB 3 ML VIAL INH PRN (08:45)
[2016-12-03] MEDS: INSULIN ASPART 100 UNITS/ML 3 ML PEN SC SCH ×4 (08:56→21:14)
[2016-12-03] MEDS: INSULIN GLARGINE SOLOSTAR 100 UNITS/ML 3 ML PEN SC SCH ×2 (08:57→21:14)
[2016-12-03] MEDS: ALBUMIN HUMAN 25% 12.5 GM/50 ML VIAL IV SCH ×2 (09:30→10:59)
[2016-12-03] MEDS: CHOLESTYRAMINE LIGHT 4 GM PKT PO SCH ×2 (10:00→22:00)
--- NOTE | 2016-12-03 10:01 | Dialysis Progress Note ---
Nephrology Dialysis Note Date of Service: Dec 03, 2016. Subjective 3L out w/ CT; on 02NC; denies pain, dypsnea currently, edema, N Objective Date Time Temp Pulse Resp B/P (MAP) Pulse Ox O2 Delivery O2 Flow Rate FiO2 12/03/16 09:51 36.5 70 92/45 (61) 12/03/16 07:14 69 18 95 Nasal Cannula 4.0 12/03/16 07:00 66 20 88/43 (58) 95 12/03/16 06:01 65 18 97/39 (58) 96 12/03/16 05:00 70 15 98/39 (58) 96 12/03/16 04:27 96 Nasal Cannula 4.0 12/03/16 04:00 68 16 98/46 (63) 87 Nasal Cannula 4.0 12/03/16 03:00 66 20 93/39 (57) 91 Nasal Cannula 4.0 12/03/16 02:00 71 17 94/39 (57) 95 Nasal Cannula 4.0 12/03/16 01:00 72 17 93/38 (56) 96 Nasal Cannula 4.0 12/03/16 00:51 96 Nasal Cannula 4.0 12/03/16 00:00 36.7 78 17 97/51 (66) 91 Nasal Cannula 4.0 12/02/16 23:00 69 17 99/42 (61) 93 Nasal Cannula 4.0 12/02/16 22:00 72 18 93/38 (56) 94 Nasal Cannula 4.0 12/02/16 21:00 85 27 125/49 (74) 91 Nasal Cannula 4.0 12/02/16 20:03 96 Nasal Cannula 4.0 12/02/16 20:00 36.7 86 26 125/51 (75) 92 Nasal Cannula 4.0 12/02/16 19:00 86 24 120/62 (81) 93 Nasal Cannula 4.0 12/02/16 18:42 103 18 96 Nasal Cannula 4.0 12/02/16 17:00 109 137/48 (77) 94 Nasal Cannula 4.0 12/02/16 16:00 94 Nasal Cannula 6.0 12/02/16 16:00 36.7 104 122/51 (74) 98 12/02/16 15:00 103 125/63 (83) 94 12/02/16 15:00 103 125/63 (83) 94 Nasal Cannula 4.0 12/02/16 14:30 104 96 12/02/16 14:00 103 123/56 (78) 95 Oxymask 10.0 12/02/16 13:30 103 96 12/02/16 13:00 104 106/50 (68) 96 Oxymask 12.0 12/02/16 12:30 103 99 12/02/16 12:15 90 Oxymask 15.0 12/02/16 12:00 36.6 102 105/53 (70) 95 Oxymask 15.0 12/02/16 10:35 36.6 95 28 91 15.0 Physical Exam: General-on o2 NC; nad, a& O x 3 but tired Eyes-eomi ENT-dry mm Neck-supple Lungs-very diminished Heart-RRR; 1+ BL ankle/pedal edema Abdomen-soft NT + bs Extremities-no c/c Neuro-mendes, fluent speech Current Inpatient Medications Medications (Trade) Dose Ordered Sig/Edilson Route Start Time Stop Time Status Last Admin Dose Admin Albuterol (Ventolin Hfa Inhaler) 2 puffs Q4 PRN INH 11/12/16 22:00 12/12/16 21:59 Atorvastatin Calcium (Lipitor Tab) 10 mg HS PO 11/13/16 21:00 12/13/16 20:59 12/02/16 20:47 10 MG Cholestyramine Resin (Questran Powder Light) 4 gm BID@10,22 PO 11/12/16 22:00 12/12/16 21:59 11/28/16 10:00 4 GM Ondansetron HCl (Zofran Tab) 4 mg Q6H PRN PO 11/12/16 22:00 12/12/16 21:59 11/29/16 07:47 4 MG Pantoprazole Sodium (Protonix Tab) 40 mg DAILY PO 11/13/16 09:00 12/13/16 08:59 12/03/16 08:21 40 MG Buspirone HCl (Buspar Tab) 10 mg TID PO 11/13/16 09:00 12/13/16 08:59 12/03/16 08:20 10 MG Loperamide HCl (Imodium Cap) 2 mg Q12H PRN PO 11/12/16 22:00 12/12/16 21:59 11/25/16 07:59 2 MG Potassium/ Phosphorus/Sodium (Phospha 250 Neutral 155-852-130 Mg) 1 tab BID PO 11/13/16 09:00 12/13/16 08:59 12/03/16 08:21 1 TAB Mirtazapine (Remeron Tab) 15 mg HS PO 11/13/16 21:00 12/13/16 20:59 12/02/16 20:45 15 MG Glucose (Glucose 40% Gel) 15-30 GRAMS 15 GRAMS... UD PRN PO 11/17/16 12:45 12/17/16 12:44 Glucose (Glucose Chew Tab) 4-8 Tablets 4 Tabl... UD PRN PO 11/17/16 12:45 12/17/16 12:44 Dextrose (Dextrose 50% 50ML Syringe) 25-50ML OF 50% DW IV FOR... UD PRN IV 11/17/16 12:45 12/17/16 12:44 Glucagon (Glucagon Inj) 1 mg UD PRN SQ 11/17/16 12:45 12/17/16 12:44 Polyethylene (Miralax Powder Packet) 17 gm DAILY PRN PO 11/17/16 12:45 12/17/16 12:44 Docusate Sodium (coLACE CAP) 100 mg BID PO 11/17/16 21:00 12/17/16 20:59 12/03/16 08:23 100 MG Al Hydroxide/Mg Hydroxide (Maalox Susp) 15 ml Q4H PRN PO 11/21/16 21:45 12/21/16 21:44 11/21/16 21:56 15 ML Miscellaneous Information (Consult Glycemic Management Pharmacy) 1 ea UD PRN N/A 11/23/16 09:47 12/23/16 09:46 Enteral Nutritional Formula (Boost Glucose Control) 0.5 can ACHS PO 11/23/16 11:00 12/23/16 10:59 12/03/16 06:45 0.5 CAN Insulin Aspart (novoLOG ASPART) SLIDING SCALE ACHS SC 11/24/16 21:00 12/24/16 20:59 12/03/16 08:56 4 UNITS Benzonatate (Tessalon Perles Cap) 100 mg TID PRN PO 11/24/16 15:00 12/24/16 14:59 11/27/16 20:58 100 MG Oxymetazoline HCl (Afrin 0.05% Nasal [place]) 1 sprays Q6H PRN NA 11/25/16 11:00 12/25/16 10:59 Morphine Sulfate (MoRPHine SULFATE INJ) 3 mg Q3HWA PRN IV 11/27/16 11:45 12/11/16 11:44 12/02/16 14:29 3 MG Midodrine (Proamatine Tab) 2.5 mg TID@,, PO 11/29/16 08:00 12/29/16 07:59 12/03/16 08:20 2.5 MG Oxycodone/ Acetaminophen (Percocet 5-325mg Tab) 1 tab Q4H PRN PO 12/01/16 13:30 12/15/16 13:29 Piperacillin Sod/ Tazobactam Sod (Consult) 1 ea UD PRN N/A 12/02/16 08:00 01/01/17 07:59 Piperacillin Sod/ Tazobactam Sod 3.375 gm/Dextrose 115 ml @ 28.75 mls/ hr Q12@0400,1600 IV 12/02/16 16:00 12/09/16 15:59 12/03/16 04:20 28.75 MLS/HR Propranolol HCl (Inderal Tab) 10 mg TID PO 12/02/16 14:00 01/01/17 13:59 12/03/16 08:22 10 MG Insulin Glargine (Lantus Solostar Pen) SEE PROTOCOL BID SC 12/02/16 21:00 01/01/17 20:59 12/03/16 08:57 14 UNITS Ferrous Sulfate (Feosol Elix) 325 mg QAM PO 12/03/16 09:00 01/02/17 08:59 12/03/16 08:23 325 MG Ascorbic Acid (Vitamin C Tab) 500 mg QAM PO 12/03/16 09:00 01/02/17 08:59 12/03/16 08:21 500 MG Zinc Sulfate (Zinc Sulfate Cap) 220 mg QAM PO 12/03/16 09:00 01/02/17 08:59 12/03/16 08:21 220 MG Heparin Sodium (Porcine) (No Heparin In Dialysis) 1 ea TODAY@0830 N/A 12/03/16 08:30 12/03/16 23:59 Albumin Human (Albumin 25%) 12.5 gm TODAY@0830,1000 IV 12/03/16 08:30 12/03/16 23:59 Epoetin Samm 80566 units/ Syringe 0.6 ml @ 1 mls/min TODAY@0830 IV. 12/03/16 08:30 12/03/16 23:59 Albuterol/ Ipratropium (Duoneb) 3 ml Q4R PRN INH 12/03/16 08:45 01/02/17 08:44 UNV Last 24 Hours Test 12/02/16 11:56 12/02/16 11:58 12/02/16 12:11 12/02/16 13:20 Bedside Glucose 115 mg/dl Pleural Fluid Source RIGHT LUNG Pleural Fluid Color RED Pleural Fluid Appearance BLOODY Pleural Fluid WBC 162 /uL Pleural Fluid RBC 73126 /uL Pleural Fluid Polynuclear WBCs % 31.0 % Pleural Fluid Mononuclear WBCs % 69.0 % Pleural Fluid LDH 97 IU White Blood Count 20.05 K/uL Red Blood Count 2.81 M/uL Hemoglobin 8.8 g/dL Hematocrit 26.8 % Mean Corpuscular Volume 95.4 fL Mean Corpuscular Hemoglobin 31.3 pg Mean Corpuscular Hemoglobin Concent 32.8 g/dl Platelet Count 121 K/uL Mean Platelet Volume 11.0 fL Neutrophils (%) (Auto) 92.2 % Lymphocytes (%) (Auto) 4.1 % Monocytes (%) (Auto) 3.0 % Eosinophils (%) (Auto) 0.1 % Basophils (%) (Auto) 0.1 % Neutrophils # (Auto) 18.46 K/uL Lymphocytes # (Auto) 0.82 K/uL Monocytes # (Auto) 0.61 K/uL Eosinophils # (Auto) 0.02 K/uL Basophils # (Auto) 0.03 K/uL RDW Standard Deviation 80.9 fL RDW Coefficient of Variation 23.5 % Immature Granulocyte % (Auto) 0.5 % Immature Granulocyte # (Auto) 0.11 K/uL Anisocytosis PRESENT Prothrombin Time 15.4 SECONDS Prothromb Time International Ratio 1.4 Activated Partial Thromboplast Time 33.1 SECONDS Partial Thromboplastin Ratio 1.3 Sodium Level 136 mmol/L Potassium Level 5.5 mmol/L Chloride Level 103 mmol/L Carbon Dioxide Level 25 mmol/L Anion Gap 8.0 mmol/L Blood Urea Nitrogen 36 mg/dl Creatinine 4.30 mg/dl Est Creatinine Clear Calc Drug Dose 10.9 ml/min Estimated GFR () 10.9 Estimated GFR (Non- 9.4 BUN/Creatinine Ratio 8.3 Random Glucose 122 mg/dl Calcium Level 8.7 mg/dl Total Bilirubin 2.3 mg/dl Aspartate Amino Transf (AST/SGOT) 107 U/L Alanine Aminotransferase (ALT/SGPT) 38 U/L Alkaline Phosphatase 214 U/L Lactate Dehydrogenase 245 U/L Total Protein 7.0 gm/dl Albumin 2.4 gm/dl Globulin 4.6 gm/dl Albumin/Globulin Ratio 0.5 Prealbumin 9.7 mg/dl Ammonia 14.0 umol/L Procalcitonin 1.43 ng/ml Test 12/02/16 16:46 12/02/16 16:52 12/02/16 20:43 12/03/16 01:05 Sodium Level 137 mmol/L Potassium Level 5.2 mmol/L Chloride Level 103 mmol/L Carbon Dioxide Level 26 mmol/L Anion Gap 8.0 mmol/L Blood Urea Nitrogen 37 mg/dl Creatinine 4.30 mg/dl Est Creatinine Clear Calc Drug Dose 10.9 ml/min Estimated GFR () 10.9 Estimated GFR (Non- 9.4 BUN/Creatinine Ratio 8.6 Random Glucose 115 mg/dl Calcium Level 8.7 mg/dl Bedside Glucose 121 mg/dl 228 mg/dl 164 mg/dl Test 12/03/16 05:32 White Blood Count 16.57 K/uL Red Blood Count 2.52 M/uL Hemoglobin 7.7 g/dL Hematocrit 23.8 % Mean Corpuscular Volume 94.4 fL Mean Corpuscular Hemoglobin 30.6 pg Mean Corpuscular Hemoglobin Concent 32.4 g/dl RDW Standard Deviation 81.2 fL RDW Coefficient of Variation 23.7 % Platelet Count 95 K/uL Mean Platelet Volume 10.7 fL Sodium Level 139 mmol/L Potassium Level 5.1 mmol/L Chloride Level 104 mmol/L Carbon Dioxide Level 25 mmol/L Anion Gap 10.0 mmol/L Blood Urea Nitrogen 46 mg/dl Creatinine 4.80 mg/dl Est Creatinine Clear Calc Drug Dose 9.4 ml/min Estimated GFR () 9.5 Estimated GFR (Non- 8.2 BUN/Creatinine Ratio 9.6 Random Glucose 141 mg/dl Calcium Level 8.1 mg/dl Phosphorus Level 7.8 mg/dl Magnesium Level 2.1 mg/dl Date/Time Source Procedure Growth Status 12/02/16 11:58 Pleural Fluid (Thoracentesis) Right Gram Stain - Final Resulted 12/02/16 11:58 Pleural Fluid (Thoracentesis) Right Bacterial Culture Pending Resulted Assessment & Plan 76 yo female with arturo in setting of cirrhosis with aspiration pneumonia. started on midodrine 11/29 to help with bp while removing fluid. on 12/02 had acute hypoxic respiratory failure and moved to ICU > got C Tube on R. arturo on ckd-getting daily dialysis with gentle fluid removal. on midodrine to help with bp while removing fluid. plan on dialysis again tomorrow. had HD on and minimal tolerance of UF (1L only) d/t hypotension. for HD today; also plan again tomorrow and likely 12/05 d/t effusion/vol status as BP tolerates Anemia-multifactorial. use Fe, procrit for goal of 10 to [address]. [address] effusion and w/ acute hypoxic respiratory failure -s/p 12/02 chest tube w/ 1.6L fluid removed immediately and ongoing large output Care coordinated w/ critical care attending.
--- NOTE | 2016-12-03 10:36 | Pharmacy Progress Note ---
Glycemic Control Progress Note Date of Service Dec 03, 2016. Scope Glycemic Pharmacist consulted for glycemic control to write orders per [facility] inpatient glycemic control protocol. Objective Accuchecks BSG (last 24hrs): Test 12/02/16 11:56 12/02/16 12:11 12/02/16 16:46 12/02/16 16:52 Bedside Glucose 115 mg/dl (70-90) 121 mg/dl (70-90) Random Glucose 122 mg/dl (70-99) 115 mg/dl (70-99) Test 12/02/16 20:43 12/03/16 01:05 12/03/16 05:32 Bedside Glucose 228 mg/dl (70-90) 164 mg/dl (70-90) Random Glucose 141 mg/dl (70-99) HbA1c: Test 11/18/16 06:40 Hemoglobin A1c 6.8 % (4.5-5.6) H Recent Pertinent Medications The patient is currently receiving: * Basal insulin: Lantus SQ BID; 10 units if BSG less than 140, 14 units if BSG 140 or greater * Correctional Insulin: Novolog Correction per scale ACHS Goal Range: Low 110 mg/dL - High 140 mg/dL Correction Factor: 30 mg/dL/unit * Prandial insulin: Per carb ratio of 1 unit per 10 grams CHO consumed * Oral Agents: none currently Outpatient Anti-Diabetic Meds diet controlled; A1c = 6.8% Assessment & Plan ASSESSMENT: 12/03/16 * Glycemic control has been quite good over the last 24 hrs, all BSGs at goal with the exception of HS BSG of 228 which may have been due to lack of carb coverage with dinner (patient may have had Boost w/ dinner). All other BSGs 115 -164 * Fasting BSG 141-164 this AM with 28 units basal insulin on board. Given low PO intake over the last few days and most BSGs yesterday 115-140, I am hesitant to increase the basal insulin dose at this time. A small dose increase may be tolerated well, however most BSGs at goal at this time. * Given low PO intake it is difficult to assess CR, but plan to continue the same for now and follow post-prandial BSGs PLAN FOR INPATIENT GLYCEMIC CONTROL: * Lantus SQ BID: 10 units if BSG less than 140, 14 units if BSG 140 or greater * Correction factor to 30 mg/dl/unit * Continuing carb ratio 1 unit per 10 grams CHO consumed * Continuing goal range Low 110 mg/dL - High 140 mg/dL RECOMMENDATIONS FOR DISCHARGE: * May resume dietary measures for control of diabetes on discharge unless patient still requiring insulin on day of discharge due to stress of infection * Please note that the plan above was derived based on current level of insulin resistance and hospital stress. These recommendations are appropriate for inpatient admission only. Plan of care upon discharge will need to be reassessed to avoid potential outpatient hypo/hyperglycemia. Thank you.
--- NOTE | 2016-12-03 20:29 | Progress Note ---
Medicine Progress Note Date & Time of Visit: Dec 03, 2016 at 08:50 . Subjective Transferred to ICU yesterday with worsening respiratory status due to large right pleural effusion. Chest tube placed with improvement of dyspnea. No fever. No cough. No anginal symptoms. No nausea or vomiting. . Objective Last 8 Hrs Date Time Temp Pulse Resp B/P (MAP) Pulse Ox O2 Delivery O2 Flow Rate FiO2 12/03/16 18:00 69 20 103/45 (64) 99 12/03/16 16:00 36.9 69 17 95/42 (59) 100 12/03/16 16:00 100 Nasal Cannula 6.0 12/03/16 14:00 76 17 110/49 (69) 99 12/03/16 13:20 36.5 64 94/39 (57) 12/03/16 12:45 64 92/46 12/03/16 12:30 65 82/46 Physical Exam: General- no distress Lungs- rales right base Heart- regular Thorax- right chest tube Abdomen- distended, soft, nontender Extremities- trace pretibial edema; no calf tenderness Neuro- alert . Laboratory Results: Last 24 Hours Test 12/02/16 20:43 12/03/16 01:05 12/03/16 05:32 12/03/16 11:28 Bedside Glucose 228 mg/dl 164 mg/dl 113 mg/dl White Blood Count 16.57 K/uL Red Blood Count 2.52 M/uL Hemoglobin 7.7 g/dL Hematocrit 23.8 % Mean Corpuscular Volume 94.4 fL Mean Corpuscular Hemoglobin 30.6 pg Mean Corpuscular Hemoglobin Concent 32.4 g/dl RDW Standard Deviation 81.2 fL RDW Coefficient of Variation 23.7 % Platelet Count 95 K/uL Mean Platelet Volume 10.7 fL Sodium Level 139 mmol/L Potassium Level 5.1 mmol/L Chloride Level 104 mmol/L Carbon Dioxide Level 25 mmol/L Anion Gap 10.0 mmol/L Blood Urea Nitrogen 46 mg/dl Creatinine 4.80 mg/dl Est Creatinine Clear Calc Drug Dose 9.4 ml/min Estimated GFR () 9.5 Estimated GFR (Non- 8.2 BUN/Creatinine Ratio 9.6 Random Glucose 141 mg/dl Calcium Level 8.1 mg/dl Phosphorus Level 7.8 mg/dl Magnesium Level 2.1 mg/dl Test 12/03/16 16:38 Bedside Glucose 127 mg/dl Assessment & Plan ACUTE HYPOXIC RESPIRATORY FAILURE Secondary to large right pleural effusion. Pleural effusion most likely secondary to underlying ascites. Chest tube placed with improvement. ACUTE KIDNEY INJURY / CKD IV CKD IV. Creatinine in ED 2.5, compared to 1.9 on 10/29/16. Underlying cirrhosis on diuretic therapy. Nephrology consulted. Creatinine worsened and hemodialysis initiated. Ongoing management per Nephrology. ELEVATED TROPONIN No chest pain. Intermittent palpitations. EKG shows nonspecific T-wave changes. Serum troponin as high as 4.050. Total CPKs repeatedly normal; CPK-MB's essentially normal. Echocardiogram on 11/13/16 did not show any wall motion abnormalities. Elevated troponin probably nonspecific, perhaps related to fall. Check repeat cardiac markers in the morning. ASPIRATION PNEUMONIA Treated with course of piperacillin / tazobactam. 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 Associated portal hypertension, esophageal varices, ascites. GI consulted. LARGE HIATAL HERNIA Evaluated in past by Thoracic Surgery. Surgical intervention not advised due to comorbidities. Elevated head of bed. Upright when eating / drinking. Continue PPI. ANOREXIA / MALNUTRITION Probably multifactorial- hiatal hernia, GERD, cirrhosis, meds, dentition. Nutrition consulted for recommendations. Changed anti-depressant from fluoxetine to mirtazapine. HYPERTENSION Blood pressures running low. Amlodipine discontinued. ORTHOSTATIC HYPOTENSION Continue midodrine. Avoid excessive diuresis. Check orthostatic vitals. Fall precautions. DM TYPE 2 Usually diet-controlled. Random blood sugar in ED 144. Hgb A1C 6.7 on 09/06/16. Fasting blood sugar this morning = 141. ANXIETY / DEPRESSION On fluoxetine at time of admission that may be contributing to anorexia. Swithced from fluoxetine to mirtazapine. Continue buspirone. DVT PROPHYLAXIS Moderately high risk for DVT. SQ heparin. Ambulate as able. GENERAL DEBILITATION Multifactorial. PT / OT evals. RESUSCITATION STATUS Full resuscitation per recent discussions. DISPOSITION Discharge disposition to be determined. May need skilled care or inpatient rehab. Case Management consulted. Family Medicine follow-up with Dr. Sepulveda. . Consultants: Nephrology Current Inpatient Medications: Current Inpatient Medications Medications (Trade) Dose Ordered Sig/Edilson Route Start Time Stop Time Status Last Admin Dose Admin Albuterol (Ventolin Hfa Inhaler) 2 puffs Q4 PRN INH 11/12/16 22:00 12/12/16 21:59 Atorvastatin Calcium (Lipitor Tab) 10 mg HS PO 11/13/16 21:00 12/13/16 20:59 12/02/16 20:47 10 MG Cholestyramine Resin (Questran Powder Light) 4 gm BID@10,22 PO 11/12/16 22:00 12/12/16 21:59 11/28/16 10:00 4 GM Ondansetron HCl (Zofran Tab) 4 mg Q6H PRN PO 11/12/16 22:00 12/12/16 21:59 11/29/16 07:47 4 MG Pantoprazole Sodium (Protonix Tab) 40 mg DAILY PO 11/13/16 09:00 12/13/16 08:59 12/03/16 08:21 40 MG Buspirone HCl (Buspar Tab) 10 mg TID PO 11/13/16 09:00 12/13/16 08:59 12/03/16 14:53 10 MG Loperamide HCl (Imodium Cap) 2 mg Q12H PRN PO 11/12/16 22:00 12/12/16 21:59 11/25/16 07:59 2 MG Potassium/ Phosphorus/Sodium (Phospha 250 Neutral 155-852-130 Mg) 1 tab BID PO 11/13/16 09:00 12/13/16 08:59 12/03/16 08:21 1 TAB Mirtazapine (Remeron Tab) 15 mg HS PO 11/13/16 21:00 12/13/16 20:59 12/02/16 20:45 15 MG Glucose (Glucose 40% Gel) 15-30 GRAMS 15 GRAMS... UD PRN PO 11/17/16 12:45 12/17/16 12:44 Glucose (Glucose Chew Tab) 4-8 Tablets 4 Tabl... UD PRN PO 11/17/16 12:45 12/17/16 12:44 Dextrose (Dextrose 50% 50ML Syringe) 25-50ML OF 50% DW IV FOR... UD PRN IV 11/17/16 12:45 12/17/16 12:44 Glucagon (Glucagon Inj) 1 mg UD PRN SQ 11/17/16 12:45 12/17/16 12:44 Polyethylene (Miralax Powder Packet) 17 gm DAILY PRN PO 11/17/16 12:45 12/17/16 12:44 Docusate Sodium (coLACE CAP) 100 mg BID PO 11/17/16 21:00 12/17/16 20:59 12/03/16 08:23 100 MG Al Hydroxide/Mg Hydroxide (Maalox Susp) 15 ml Q4H PRN PO 11/21/16 21:45 12/21/16 21:44 11/21/16 21:56 15 ML Miscellaneous Information (Consult Glycemic Management Pharmacy) 1 UD PRN N/A 11/23/16 09:47 12/23/16 09:46 Enteral Nutritional Formula (Boost Glucose Control) 0.5 can ACHS PO 11/23/16 11:00 12/23/16 10:59 12/03/16 16:00 0.5 CAN Insulin Aspart (novoLOG ASPART) SLIDING SCALE ACHS SC 11/24/16 21:00 12/24/16 20:59 12/03/16 08:56 4 UNITS Benzonatate (Tessalon Perles Cap) 100 mg TID PRN PO 11/24/16 15:00 12/24/16 14:59 11/27/16 20:58 100 MG Oxymetazoline HCl (Afrin 0.05% Nasal [place]) 1 sprays Q6H PRN NA 11/25/16 11:00 12/25/16 10:59 Morphine Sulfate (MoRPHine SULFATE INJ) 3 mg Q3HWA PRN IV 11/27/16 11:45 12/11/16 11:44 12/02/16 14:29 3 MG Midodrine (Proamatine Tab) 2.5 mg TID@,, PO 11/29/16 08:00 12/29/16 07:59 12/03/16 18:50 2.5 MG Oxycodone/ Acetaminophen (Percocet 5-325mg Tab) 1 tab Q4H PRN PO 12/01/16 13:30 12/15/16 13:29 Piperacillin Sod/ Tazobactam Sod (Consult) 1 UD PRN N/A 12/02/16 08:00 01/01/17 07:59 Piperacillin Sod/ Tazobactam Sod 3.375 gm/Dextrose 115 ml @ 28.75 mls/ hr Q12@0400,1600 IV 12/02/16 16:00 12/09/16 15:59 12/03/16 16:42 28.75 MLS/HR Propranolol HCl (Inderal Tab) 10 mg TID PO 12/02/16 14:00 01/01/17 13:59 12/03/16 14:54 10 MG Insulin Glargine (Lantus Solostar Pen) SEE PROTOCOL BID SC 12/02/16 21:00 01/01/17 20:59 12/03/16 08:57 14 UNITS Ferrous Sulfate (Feosol Elix) 325 mg QAM PO 12/03/16 09:00 01/02/17 08:59 12/03/16 08:23 325 MG Ascorbic Acid (Vitamin C Tab) 500 mg QAM PO 12/03/16 09:00 01/02/17 08:59 12/03/16 08:21 500 MG Zinc Sulfate (Zinc Sulfate Cap) 220 mg QAM PO 12/03/16 09:00 01/02/17 08:59 12/03/16 08:21 220 MG Heparin Sodium (Porcine) (No Heparin In Dialysis) 1 ea TODAY@0830 N/A 12/03/16 08:30 12/03/16 23:59 Albumin Human (Albumin 25%) 12.5 gm TODAY@0830,1000 IV 12/03/16 08:30 12/03/16 23:59 Epoetin Samm 87411 units/ Syringe 0.6 ml @ 1 mls/min TODAY@0830 IV. 12/03/16 08:30 12/03/16 23:59 Albuterol/ Ipratropium (Duoneb) 3 ml Q4R PRN INH 12/03/16 08:45 01/02/17 08:44 Heparin Sodium (Porcine) (Heparin Sq 5000 Unit/0.5ml) 5,000 unit Q12 SQ 12/03/16 21:00 01/03/17 20:59
[2016-12-03] MEDS: ATORVASTATIN 10 MG TAB PO SCH (21:02)
[2016-12-03] MEDS: MIRTAZAPINE TAB 15 MG TAB PO SCH (21:04)
[2016-12-03] MEDS: HEPARIN SOD 5000 UNIT/0.5 ML CARP SQ SCH (21:09)
[2016-12-04] VITALS (38 sets, daily range): BP systolic 61–116; BP diastolic 31–56; PULSE 60–75; TEMP 36.5–37.8; O2SAT 91–100
[2016-12-04] MEDS: ALUMINUM/MAGNESIUM SUSP 30 ML UDC PO PRN (02:37)
[2016-12-04] MEDS: PIPERACILL/TAZOBAC IV 3.375 GM in DEXTROSE 5% 100ML IV SCH ×2 (04:08→16:52)
[2016-12-04 05:45] LABS: MEAN CORPUSCULAR HGB CONC 31.4 g/dl (32-36)
[2016-12-04 05:55] LABS: HEMATOCRIT 27.4 % (37-47); MEAN CELL VOLUME 95.1 fL (80-100); MEAN CORPUSCULAR HEMOGLOBIN 29.9 pg (25-34); RED BLOOD COUNT 2.88 M/uL (4.2-5.4); WHITE BLOOD COUNT 16.02 K/uL (4.8-10.8)
[2016-12-04 06:25] LABS: MEAN PLATELET VOLUME 11.1 fL (7.4-10.4); PLATELET COUNT 99 K/uL (130-400)
[2016-12-04 06:26] LABS: ANISOCYTOSIS PRESENT; BASO % 0.2 %; BASO ABS # 0.03 K/uL (0-0.2); COMPLETE YES; EOS % 1.1 %; IG% 0.6 %; LARGE PLATELETS 1+; LYMPH % 14.2 %; LYMPH ABS # 2.28 K/uL (1.2-3.4); MONO % 8.7 %; NEUT % 75.2 %; PLT ESTIMATE DECREASED
[2016-12-04 06:29] LABS: ALB/GLOB RATIO 0.6 (0.9-2); BUN/CREATININE RATIO 8.1 (10-20); CALCIUM 7.7 mg/dl (8.5-10.1); CREATININE 3.5 mg/dl (0.60-1.20); POTASSIUM 3.8 mmol/L (3.5-5.1)
[2016-12-04] MEDS: BOOST GLUCOSE CONTROL PO SCH ×4 (06:45→21:32)
--- NOTE | 2016-12-04 07:19 | DIAGNOSTIC IMAGING REPORT ---
CHEST ONE VIEW PORTABLE HISTORY: 76 years-old Female Eval RIGHT pleural effusion/RIGHT Apical pneumothorax COMPARISON: Portable chest radiograph 12/03/2016 TECHNIQUE: Portable upright AP view of the chest FINDINGS: Cardiac silhouette is again enlarged. There remains hazy bibasilar left greater than right opacities with small left and trace right pleural effusions. There is mild pulmonary vascular congestion. Small right-sided pneumothorax is unchanged with visceral pleural separation of 1.2 cm. Dual lumen right internal jugular hemodialysis catheter is present with distal tip again in the right atrium. Drainage catheter is again seen at the level of the right lung base. Cholecystectomy clips are noted. The bones are grossly intact. IMPRESSION: 1. Persistent unchanged size of small right apical pneumothorax. 2. The remainder of the study is also unchanged from comparison as above. The above report was generated using voice recognition software. It may contain grammatical, syntax or spelling errors. Electronically signed by: Yovani Vivar M.D. 12/04/2016 7:18 AM Dictated Date/Time: 12/04/2016 7:15 AM
[2016-12-04] MEDS ORDERED: EPOETIN ALFA 10,000 UNITS/ML VIAL IV. ONE (07:45)
[2016-12-04] MEDS: ASCORBIC ACID 500 MG TAB PO SCH (07:59)
[2016-12-04] MEDS: FERROUS SULFATE 325 MG/7.4 ML UDP PO SCH (08:00)
[2016-12-04] MEDS: PANTOprazole SOD 40 MG TAB PO SCH (08:00)
[2016-12-04] MEDS: ZINC SULFATE 220 MG CAP PO SCH (08:00)
[2016-12-04] MEDS ORDERED: EPOETIN ALFA INJ 12,000 UNITS in SYRINGE 0 ML IV. SCH (08:00)
[2016-12-04] MEDS: DOCUSATE SODIUM 100 MG CAP PO SCH ×3 (08:00→21:32)
[2016-12-04] MEDS: PROPRANOLOL HCL 10 MG TAB PO SCH ×3 (08:34→21:32)
[2016-12-04] MEDS: INSULIN ASPART 100 UNITS/ML 3 ML PEN SC SCH ×4 (08:39→21:31)
[2016-12-04] MEDS: INSULIN GLARGINE SOLOSTAR 100 UNITS/ML 3 ML PEN SC SCH ×2 (08:40→21:29)
[2016-12-04] MEDS: HEPARIN SOD 5000 UNIT/0.5 ML CARP SQ SCH ×2 (08:41→21:31)
[2016-12-04] MEDS: LOPERAMIDE HCL 2 MG CAP PO PRN (08:44)
[2016-12-04] MEDS: MIDODRINE 2.5 MG TAB PO SCH ×3 (08:44→16:50)
[2016-12-04] MEDS: ONDANSETRON 4 MG TAB PO PRN ×2 (08:45→18:49)
--- NOTE | 2016-12-04 09:55 | Palliative Care Consultation ---
Consultation Date of Consultation: Dec 04, 2016. Requesting Physician: Dr. Stephenson Attending Physician: Dr. 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 Most of history obtained from record, some from patient. Ms. Ng was admitted to [facility] in October for ROSANGELA at which time she had a paracentesis, no sign of SBP per record. She had several admissions prior to that as well. extensive PMH listed below. During October admission she was also started on midodrine for orthostatic hypotension. She was discharged home on 10/29/16. At home, patient was weak, had a fall, overall not feeling well so she came to hospital. Creatine was initially 2.5, peaked at 5.2. Patient is followed by GI, pulmonary and nephrology. She had a right thoracentesis on 11/23/2016 where 800ml fluid was taken. ROSANGELA worsened and patient was started on dialysis 11/27/16 through a right IJ perm cath that was inserted on 11/27/16. She has had daily dialysis treatments since then. On 12/02/16 patient had acute respiratory failure and was transferred to ICU, chest tube placed for large pleural effusion. She is now back on nasal cannula. Patient has expressed frustration with the situation and was unsure of whether or not she really wanted long-term dialysis. Palliative care consulted for extra layer of care and to discuss goals of care. I met with the patient today in room 105. She is sitting up in chair in no apparent distress. She is frail, denies any pain. Does c/o being "foggy-headed, " and recalls that staff had a difficult time waking her up this morning. Is also slightly nauseated this morning. Patient described some of what she has experienced since May when she says she initially got sick. Knew she had kidney problems, but the liver disease "was a big surprise." Patient says there have been times during this admission when she was so sick an miserable she did care whether she lived or (she is not suicidal). Patient wants to continue to live, but does not want to be kept alive by heroic measures if she has no quality of life. She is okay with continuing current care, including dialysis, for the time being as she does feel "a little better." However, if she worsens/ declines and does not feel she has a good quality of life to look forward to, she would just want to be made comfortable and allow nature to take its course without any life-prolonging measures. She does not have a living will, I will request for one to be done. Her Oni, son Shane, and daughter Rosario, would be her decision-makers. 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 HTN History of hysterectomy Hx of appendectomy S/P cardiac cath S/p rectocele repair Social History Smoking Status: Never Smoker History of Alcohol Use: No Drug Use: none Marital Status: Housing Status: lives with significant other Review of Systems Constitutional: + weakness ENT: No trouble swallowing Respiratory: No cough, No shortness of breath Cardiac: + edema, No chest pain Abdomen: + nausea, No pain, No vomiting Female : + problem reported (oliguria) Psychiatric: + depression symptoms, No anxiety Allergies Coded Allergies: Erythromycin (Unverified Allergy, Mild, STOMACH PAIN, 10/23/16) Butorphanol (Unverified Allergy, Unknown, LOOPY, 10/23/16) Medications Current Inpatient Medications Medications (Trade) Dose Ordered Sig/Edilson Route Start Time Stop Time Status Last Admin Dose Admin Albuterol (Ventolin Hfa Inhaler) 2 puffs Q4 PRN INH 11/12/16 22:00 12/12/16 21:59 Atorvastatin Calcium (Lipitor Tab) 10 mg HS PO 11/13/16 21:00 12/13/16 20:59 12/03/16 21:02 10 MG Cholestyramine Resin (Questran Powder Light) 4 gm BID@ PO 11/12/16 22:00 12/12/16 21:59 11/28/16 10:00 4 GM Ondansetron HCl (Zofran Tab) 4 mg Q6H PRN PO 11/12/16 22:00 12/12/16 21:59 12/04/16 08:45 4 MG Pantoprazole Sodium (Protonix Tab) 40 mg DAILY PO 11/13/16 09:00 12/13/16 08:59 12/04/16 08:00 40 MG Buspirone HCl (Buspar Tab) 10 mg TID PO 11/13/16 09:00 12/13/16 08:59 12/04/16 08:01 10 MG Loperamide HCl (Imodium Cap) 2 mg Q12H PRN PO 11/12/16 22:00 12/12/16 21:59 12/04/16 08:44 2 MG Potassium/ Phosphorus/Sodium (Phospha 250 Neutral 155-852-130 Mg) 1 tab BID PO 11/13/16 09:00 12/13/16 08:59 Future Hold 12/03/16 21:00 1 TAB Glucose (Glucose 40% Gel) 15-30 GRAMS 15 GRAMS... UD PRN PO 11/17/16 12:45 12/17/16 12:44 Glucose (Glucose Chew Tab) 4-8 Tablets 4 Tabl... UD PRN PO 11/17/16 12:45 12/17/16 12:44 Dextrose (Dextrose 50% 50ML Syringe) 25-50ML OF 50% DW IV FOR... UD PRN IV 11/17/16 12:45 12/17/16 12:44 Glucagon (Glucagon Inj) 1 mg UD PRN SQ 11/17/16 12:45 12/17/16 12:44 Polyethylene (Miralax Powder Packet) 17 gm DAILY PRN PO 11/17/16 12:45 12/17/16 12:44 Docusate Sodium (coLACE CAP) 100 mg BID PO 11/17/16 21:00 12/17/16 20:59 12/03/16 21:01 100 MG Al Hydroxide/Mg Hydroxide (Maalox Susp) 15 ml Q4H PRN PO 11/21/16 21:45 12/21/16 21:44 12/04/16 02:37 15 ML Miscellaneous Information (Consult Glycemic Management Pharmacy) 1 ea UD PRN N/A 11/23/16 09:47 12/23/16 09:46 Enteral Nutritional Formula (Boost Glucose Control) 0.5 can ACHS PO 11/23/16 11:00 12/23/16 10:59 12/04/16 06:45 0.5 CAN Insulin Aspart (novoLOG ASPART) SLIDING SCALE ACHS SC 11/24/16 21:00 12/24/16 20:59 12/04/16 08:39 7 UNITS Benzonatate (Tessalon Perles Cap) 100 mg TID PRN PO 11/24/16 15:00 12/24/16 14:59 11/27/16 20:58 100 MG Oxymetazoline HCl (Afrin 0.05% Nasal [place]) 1 sprays Q6H PRN NA 11/25/16 11:00 12/25/16 10:59 Morphine Sulfate (MoRPHine SULFATE INJ) 3 mg Q3HWA PRN IV 11/27/16 11:45 12/11/16 11:44 12/02/16 14:29 3 MG Oxycodone/ Acetaminophen (Percocet 5-325mg Tab) 1 tab Q4H PRN PO 12/01/16 13:30 12/15/16 13:29 Piperacillin Sod/ Tazobactam Sod (Consult) 1 ea UD PRN N/A 12/02/16 08:00 01/01/17 07:59 Piperacillin Sod/ Tazobactam Sod 3.375 gm/Dextrose 115 ml @ 28.75 mls/ hr Q12@0400,1600 IV 12/02/16 16:00 12/09/16 15:59 12/04/16 04:08 28.75 MLS/HR Propranolol HCl (Inderal Tab) 10 mg TID PO 12/02/16 14:00 01/01/17 13:59 12/04/16 08:34 10 MG Insulin Glargine (Lantus Solostar Pen) SEE PROTOCOL BID SC 12/02/16 21:00 01/01/17 20:59 12/04/16 08:40 14 UNITS Ferrous Sulfate (Feosol Elix) 325 mg QAM PO 12/03/16 09:00 01/02/17 08:59 12/04/16 08:00 325 MG Ascorbic Acid (Vitamin C Tab) 500 mg QAM PO 12/03/16 09:00 01/02/17 08:59 12/04/16 07:59 500 MG Zinc Sulfate (Zinc Sulfate Cap) 220 mg QAM PO 12/03/16 09:00 01/02/17 08:59 12/04/16 08:00 220 MG Albuterol/ Ipratropium (Duoneb) 3 ml Q4R PRN INH 12/03/16 08:45 01/02/17 08:44 Heparin Sodium (Porcine) (Heparin Sq 5000 Unit/0.5ml) 5,000 unit Q12 SQ 12/03/16 21:00 01/03/17 20:59 12/04/16 08:41 5,000 UNIT Heparin Sodium (Porcine) (No Heparin In Dialysis) 1 ea TODAY@0800 N/A 12/04/16 08:00 12/04/16 18:00 Albumin Human (Albumin 25%) 12.5 gm 0800,0930 IV 12/04/16 08:00 12/04/16 18:00 Epoetin Samm 09617 units/ Syringe 0.6 ml @ 1 mls/min TODAY@0800 IV. 12/04/16 08:00 12/04/16 18:00 Midodrine (Proamatine Tab) 7.5 mg TID@08,12,17 PO 12/04/16 08:00 12/29/16 07:59 12/04/16 08:44 7.5 MG Mirtazapine (Remeron Tab) 7.5 mg HS PO 12/04/16 21:00 12/13/16 20:59 Physical Exam Date Time Temp Pulse Resp B/P (MAP) Pulse Ox O2 Delivery O2 Flow Rate FiO2 12/04/16 07:00 66 20 97/44 (61) 97 12/04/16 06:45 69 19 116/52 (73) 97 12/04/16 06:30 67 19 89/40 (56) 97 12/04/16 06:24 65 18 94/51 (65) 97 12/04/16 06:15 64 19 94/51 (65) 97 12/04/16 06:05 65 20 81/38 (52) 12/04/16 06:00 65 15 61/42 (48) 97 12/04/16 04:15 66 15 88/35 (52) 99 12/04/16 04:00 36.9 66 16 86/36 (53) 99 12/04/16 04:00 98 Nasal Cannula 2.0 12/04/16 02:30 70 16 107/51 (69) 99 12/04/16 02:15 74 18 94/44 (61) 98 12/04/16 02:00 72 17 84/41 (55) 97 12/04/16 00:00 37.0 68 19 85/40 (55) 98 12/03/16 23:59 98 Nasal Cannula 2.0 12/03/16 23:45 70 18 89/45 (60) 99 12/03/16 23:30 67 14 87/38 (54) 98 12/03/16 23:15 69 14 90/33 (52) 99 12/03/16 23:00 69 21 85/38 (54) 99 12/03/16 22:45 69 20 89/37 (54) 99 12/03/16 22:30 69 16 86/34 (51) 100 12/03/16 22:15 71 17 85/36 (52) 99 12/03/16 22:00 69 17 86/32 (50) 99 12/03/16 21:45 69 15 92/43 (59) 99 12/03/16 21:30 72 20 98/41 (60) 98 12/03/16 21:16 76 23 71/52 (58) 12/03/16 21:00 72 14 89/34 (52) 100 12/03/16 20:45 69 15 77/40 (52) 100 12/03/16 20:30 69 21 87/39 (55) 83 12/03/16 20:15 68 31 101/39 (59) 94 12/03/16 20:01 36.6 75 26 92/56 (68) 94 12/03/16 20:00 Nasal Cannula 3.0 12/03/16 18:00 69 20 103/45 (64) 99 12/03/16 16:00 36.9 69 17 95/42 (59) 100 12/03/16 16:00 100 Nasal Cannula 6.0 12/03/16 14:00 76 17 110/49 (69) 99 12/03/16 13:20 36.5 64 94/39 (57) 12/03/16 12:45 64 92/46 12/03/16 12:30 65 82/46 12/03/16 12:15 64 93/45 12/03/16 12:15 66 18 93/45 (61) 98 8/21/17 12:00 95 Nasal Cannula 6.0 12/03/16 12:00 36.7 65 19 86/59 (68) 95 Nasal Cannula 6.0 12/03/16 12:00 66 86/59 12/03/16 11:45 61 91/46 12/03/16 11:30 62 77/42 12/03/16 11:15 62 80/35 12/03/16 11:00 60 87/37 12/03/16 10:45 63 86/36 12/03/16 10:30 65 88/35 12/03/16 10:15 63 86/36 12/03/16 10:00 66 16 90/46 (61) 97 Nasal Cannula 6.0 12/03/16 10:00 65 90/46 12/03/16 09:51 36.5 70 92/45 (61) 12/03/16 09:45 65 80/35 12/03/16 09:30 61 93/44 General Appearance: no apparent distress, + pertinent finding (frail) ENT: hearing grossly normal Neck: supple, no JVD Respiratory: no respiratory distress, no accessory muscle use, + decreased breath sounds (R>L) Cardiovascular: regular rate, rhythm, + pertinent finding (+3 pitting edema to BL feet and ankles) Abdomen: normal bowel sounds, non tender, soft Neurologic/Psychiatric: alert, normal mood/affect, oriented x 3 Laboratory Results Last 24 Hours Test 12/03/16 11:28 12/03/16 16:38 12/03/16 21:09 12/04/16 05:11 Bedside Glucose 113 mg/dl 127 mg/dl 173 mg/dl White Blood Count 16.02 K/uL Red Blood Count 2.88 M/uL Hemoglobin 8.6 g/dL Hematocrit 27.4 % Mean Corpuscular Volume 95.1 fL Mean Corpuscular Hemoglobin 29.9 pg Mean Corpuscular Hemoglobin Concent 31.4 g/dl Platelet Count 99 K/uL Mean Platelet Volume 11.1 fL Neutrophils (%) (Auto) 75.2 % Lymphocytes (%) (Auto) 14.2 % Monocytes (%) (Auto) 8.7 % Eosinophils (%) (Auto) 1.1 % Basophils (%) (Auto) 0.2 % Neutrophils # (Auto) 12.06 K/uL Lymphocytes # (Auto) 2.28 K/uL Monocytes # (Auto) 1.39 K/uL Eosinophils # (Auto) 0.17 K/uL Basophils # (Auto) 0.03 K/uL RDW Standard Deviation 81.6 fL RDW Coefficient of Variation 24.0 % Immature Granulocyte % (Auto) 0.6 % Immature Granulocyte # (Auto) 0.09 K/uL Platelet Estimate DECREASED Large Platelets 1+ Anisocytosis PRESENT Sodium Level 138 mmol/L Potassium Level 3.8 mmol/L Chloride Level 101 mmol/L Carbon Dioxide Level 27 mmol/L Anion Gap 10.0 mmol/L Blood Urea Nitrogen 28 mg/dl Creatinine 3.50 mg/dl Est Creatinine Clear Calc Drug Dose 12.9 ml/min Estimated GFR () 13.9 Estimated GFR (Non- 12.0 BUN/Creatinine Ratio 8.1 Random Glucose 146 mg/dl Calcium Level 7.7 mg/dl Total Bilirubin 1.6 mg/dl Aspartate Amino Transf (AST/SGOT) 88 U/L Alanine Aminotransferase (ALT/SGPT) 32 U/L Alkaline Phosphatase 224 U/L Total Protein 5.9 gm/dl Albumin 2.1 gm/dl Globulin 3.8 gm/dl Albumin/Globulin Ratio 0.6 Procalcitonin 1.72 ng/ml Test 12/04/16 06:35 12/04/16 07:47 12/04/16 08:12 Bedside Glucose 169 mg/dl 192 mg/dl Assessment & Plan Palliative Performance Scale: 50 % Problem list: Acute respiratory failure 2/2 large right pleural effusion ROSANGELA on CKD- now on dialysis Aspiration pneumonia Cirrhosis/portal htn 2/2 MORRISON Ascites Esophageal varices Large hiatal hernia Anorexia/malnutrition Orthostatic hypotension Anxiety/depression Poor functional status Generalized weakness Goals of care (Z51.5) Palliative care recs: -Code status was not specifically addressed during my conversation. -Patient is okay with continuing current treatment, including dialysis. -She is unsure of her long-term goals at this point, as it will really depend on this hospital course. -If patient at end-stage, she would not want her life to be prolonged by heroic measures. If she has no good quality of life, she would want to be made comfortable and allow natural . It is important to her to be able to spend meaningful time with her family and others. She does not want to be tired and "worn out all the time." -Patient is agreeable and thinks it's a good idea to complete a living will- will request patient rep. -Case management is following for discharge planning. -Would consider decreasing or discontinuing Remeron as patient was difficult to arouse this morning and is now foggy headed. Thank you kindly for this consult. I will follow.
[2016-12-04] MEDS: CHOLESTYRAMINE LIGHT 4 GM PKT PO SCH ×2 (10:00→21:32)
[2016-12-04] MEDS: ALBUMIN HUMAN 25% 12.5 GM/50 ML VIAL IV SCH ×2 (10:15→11:25)
--- NOTE | 2016-12-04 10:19 | Critical Care Progress Note ---
Critical Care Progress Note Date of Service Dec 04, 2016. ICU Day ICU Day Number: [address] Pandya Subjective Patient is a 76-year-old female admitted to the ICU secondary to hypoxic respiratory failure in the setting of atelectatic compressive lung changes from recurrent RIGHT pleural effusion. The patient had a chest tube placed 2 days ago. She has had significant output from the chest tube. Apparently, they had trouble waking the patient this morning. She did awaken with a cold washcloth. The patient does report feeling somewhat drowsy, but overall, reports feeling much better than the day previous. She offers no complaints this time. Objective VITAL SIGNS - Vital signs and nursing notes were reviewed. GENERAL - 76-year-old female appearing her stated age who is in no acute distress. Communicates well with provider and answers questions appropriately. LUNGS - Chest wall symmetric without accessory muscle use, intercostals retractions, or central cyanosis. RIGHT sided Thal quick in place to the RIGHT lateral chest wall with clear yellowish serosanguineous fluid. Normal vesicular breath sounds CTA B/L. No wheezes or rhonchi appreciated. RIGHT greater than left basilar rales appreciated. CARDIAC - RRR with S1/S2. No murmur, rubs, or gallops appreciated. No reproducible tenderness to palpation appreciated over the anterior chest wall. ABDOMEN - Abdominal contour obese and without pulsations or visible masses. BS normoactive all four quadrants. No tenderness or palpable masses appreciated. EXTREMITIES - No clubbing or peripheral cyanosis. Moderate bilateral pretibial edema present. +2/5 radial and dorsalis pedis pulses palpated throughout. +5/5 strength noted in UE/LE bilaterally. NEUROLOGIC - Cranial nerves II through XII grossly intact. Sensory intact to light touch throughout. PSYCH - A&Ox3 and cooperates fully with examiner. Pt is very pleasant and interacts well with examiner. Current SOFA Score SOFA Score Response (Comments) Value Platelets (x10) < 100 2 Bilirubin (mg/dL) 1.2 - 1.9 1 Abhay Coma Score 15 0 Level of Hypotension MAP less than 70 1 Creatinine (mg/dL) 3.5 - 4.9 3 Total 7 Previous SOFA Scores 8 Assessment & Plan (1) Acute respiratory failure with hypoxia (2) Transudative pleural effusion (3) DM type 2 (diabetes mellitus, type 2) (4) CKD (chronic kidney disease), stage IV (5) Varices, esophageal (6) MORRISON (nonalcoholic steatohepatitis) (7) Asthma (8) Pericardial effusion (9) Ascites of liver (10) Elevated troponin (11) Acute kidney injury Reason Critically Ill: 76-year-old female with acute hypoxic respiratory failure secondary to large recurrent RIGHT pleural effusion requiring Thal-Quick Neuro - * CAM ICU: NEGATIVE * History of Depression/Anxiety - well controlled on Remeron. * Difficulty with waking patient this morning. She reports feeling drowsy on evaluation. Will discontinue her Remeron. Cardiac - * Hypotension - continue Midodrine while requiring dialysis. * Increased her Midodrine dosing to 7.5 mg. * Orthostasis - to be reassessed after HD. * Loculated Pericardial Effusion - likely chronic. * EKGs for any c/o Chest Pain. * Monitor on Telemetry. Respiratory - * Acute Hypoxic Respiratory Failure Secondary to Compressive Atelectasis from Impressive Recurrent RIGHT Pleural Effusion: * Emergent Thal-Quick placed in ICU with moderate output and resolve of pleural effusion. * Small RIGHT Apical Pneumothorax s/p Thal-Quick Placement: * AM CXR shows persistence without progression. Will continue to monitor daily. * Discontinued suction. * Aspiration Pneumonia. * Finished 7 day course of IV Zosyn. * Started on second 7 day course yesterday in setting of new respiratory distress. Will complete this course. * Will recheck Procalcitonin tomorrow AM. Continue to monitor/trend as needed. * Supplemental O2 as needed. * Wean as tolerated. * Continue to monitor pulse oximetry. * Appreciate Pulmonary Consultation for evaluation of PleurX Catheter placement for continued management of recurrent RIGHT Pleural Effusion. GI - * MORRISON w/ Hepatic Insufficiency. * Scant ascites. * Likely contributing to recurrence of RIGHT pleural effusion. * Continue Rx per GI * Portal Hypertension with Esophageal Varices: * Per patient - has never had GI Bleeding. Did have banding x1 performed prophylactically. Was to have f/u appointment, but was hospitalized. * Will monitor for any bleeding. * GERD * Continue PO Protonix RENAL/LYTES - * ROSANGELA on Chronic Kidney Disease IV: * Progressed to need for HD - continue per Nephro recommendations. * Hyperkalemia - HD managed. * Hyperphosphatemia - 7.8. Repeat labs today. * Appreciated Nephrology guidance. * Monitor Lytes daily. - * No Clark - Aneuric. ENDO - * History of T2DM: * ISS for goal BSGs. HEME - * Chronic Anemia in the setting of CKD. * Continue Iron supplementation. * Epogen per Nephro. * Improving leukocytosis. Will monitor in the setting of concerns for possible aspirations pneumonia. * No drop in platelets over 24 hr w/ Heparin administration. ID - * Aspiration Pneumonia: * Finished 7 day course of Zosyn. * Restarted yesterday in setting of Acute Respiratory Failure. Will complete 7 day course. * Procalcitonin mildly elevated. Continue to trend. Continue antibiotics for now. * Monitor fever curve. LINES/IV ACCESS - * PIVs intact. * RIGHT IJ Permcath in place. * RIGHT Thal-Quick in place. DVT PROPHYLAXIS - * Heparin 5,000 U sq BID. I have personally spent 35 minutes of critical care time in the direct management of this patient. This is a life/limb threatening event. This includes time spent evaluating patient, direct bedside care, chart review, placing orders, interpretation of diagnostic studies, discussion with consultants, patient, and family members, as well as other required patient management activities. This time is exclusive of all separately billable procedures, and teaching time and separate from and in addition to any other critical care service time. Thank you for this consultation allow us to be part of this patient's care. Please refer to my attending physician's documentation for any further recommendations. I was present with Maninder Hull PA-C during the history and exam. I discussed the case with him and agree with the findings and plan as documented in the note. Any exceptions or clarifications are listed here: Patient with respiratory failure secondary to transudative right pleural effusion. Improved after chest tube placement. The etiology is a mix of liver disease and renal disease, but quite concerning for hepatic hydrothorax. She continues to have significant output from the chest tube on the third day. At this point, will clamp the tube and monitor radiographically and symptomatically. Hopefully dialysis initiation will help to some extent For now, will hold off on a PleurX catheter in case this is hepatic hydrothorax. There is a small right apical pneumothorax, which remains stable. No air leak in the chest tube. No need for further intervention, there may a small component of lung entrapment. Increase Midodrine Continue hemodialysis as scheduled Finish course of Zosyn. OOB to chair Physical therapy DVT prophylaxis - SC heparin Documented By: Everette Pandya MD Critical care time spent greater than 25 minutes Consults & Procedures Consultants: GI - Marnie Nephrology - Dr. Pacheco Pulm - Dr. Phoenix Procedures: RIGHT IJ Permcath in place Data Medications: Current Inpatient Medications Medications (Trade) Dose Ordered Sig/Edilson Route Start Time Stop Time Status Last Admin Dose Admin Albuterol (Ventolin Hfa Inhaler) 2 puffs Q4 PRN INH 11/12/16 22:00 12/12/16 21:59 Atorvastatin Calcium (Lipitor Tab) 10 mg HS PO 11/13/16 21:00 12/13/16 20:59 12/03/16 21:02 10 MG Cholestyramine Resin (Questran Powder Light) 4 gm BID@ PO 11/12/16 22:00 12/12/16 21:59 11/28/16 10:00 4 GM Ondansetron HCl (Zofran Tab) 4 mg Q6H PRN PO 11/12/16 22:00 12/12/16 21:59 12/04/16 08:45 4 MG Pantoprazole Sodium (Protonix Tab) 40 mg DAILY PO 11/13/16 09:00 12/13/16 08:59 12/04/16 08:00 40 MG Buspirone HCl (Buspar Tab) 10 mg TID PO 11/13/16 09:00 12/13/16 08:59 12/04/16 08:01 10 MG Loperamide HCl (Imodium Cap) 2 mg Q12H PRN PO 11/12/16 22:00 12/12/16 21:59 12/04/16 08:44 2 MG Glucose (Glucose 40% Gel) 15-30 GRAMS 15 GRAMS... UD PRN PO 11/17/16 12:45 12/17/16 12:44 Glucose (Glucose Chew Tab) 4-8 Tablets 4 Tabl... UD PRN PO 11/17/16 12:45 12/17/16 12:44 Dextrose (Dextrose 50% 50ML Syringe) 25-50ML OF 50% DW IV FOR... UD PRN IV 11/17/16 12:45 12/17/16 12:44 Glucagon (Glucagon Inj) 1 mg UD PRN SQ 11/17/16 12:45 12/17/16 12:44 Polyethylene (Miralax Powder Packet) 17 gm DAILY PRN PO 11/17/16 12:45 12/17/16 12:44 Docusate Sodium (coLACE CAP) 100 mg BID PO 11/17/16 21:00 12/17/16 20:59 12/03/16 21:01 100 MG Al Hydroxide/Mg Hydroxide (Maalox Susp) 15 ml Q4H PRN PO 11/21/16 21:45 12/21/16 21:44 12/04/16 02:37 15 ML Miscellaneous Information (Consult Glycemic Management Pharmacy) 1 UD PRN N/A 11/23/16 09:47 12/23/16 09:46 Enteral Nutritional Formula (Boost Glucose Control) 0.5 can ACHS PO 11/23/16 11:00 12/23/16 10:59 12/04/16 06:45 0.5 CAN Insulin Aspart (novoLOG ASPART) SLIDING SCALE ACHS SC 11/24/16 21:00 12/24/16 20:59 12/04/16 08:39 7 UNITS Benzonatate (Tessalon Perles Cap) 100 mg TID PRN PO 11/24/16 15:00 12/24/16 14:59 11/27/16 20:58 100 MG Oxymetazoline HCl (Afrin 0.05% Nasal [place]) 1 sprays Q6H PRN NA 11/25/16 11:00 12/25/16 10:59 Morphine Sulfate (MoRPHine SULFATE INJ) 3 mg Q3HWA PRN IV 11/27/16 11:45 12/11/16 11:44 12/02/16 14:29 3 MG Oxycodone/ Acetaminophen (Percocet 5-325mg Tab) 1 tab Q4H PRN PO 12/01/16 13:30 12/15/16 13:29 Piperacillin Sod/ Tazobactam Sod (Consult) 1 UD PRN N/A 12/02/16 08:00 01/01/17 07:59 Piperacillin Sod/ Tazobactam Sod 3.375 gm/Dextrose 115 ml @ 28.75 mls/ hr Q12@0400,1600 IV 12/02/16 16:00 12/09/16 15:59 12/04/16 04:08 28.75 MLS/HR Propranolol HCl (Inderal Tab) 10 mg TID PO 12/02/16 14:00 01/01/17 13:59 12/04/16 08:34 10 MG Ascorbic Acid (Vitamin C Tab) 500 mg QAM PO 12/03/16 09:00 01/02/17 08:59 12/04/16 07:59 500 MG Zinc Sulfate (Zinc Sulfate Cap) 220 mg QAM PO 12/03/16 09:00 01/02/17 08:59 12/04/16 08:00 220 MG Albuterol/ Ipratropium (Duoneb) 3 ml Q4R PRN INH 12/03/16 08:45 01/02/17 08:44 Heparin Sodium (Porcine) (Heparin Sq 5000 Unit/0.5ml) 5,000 unit Q12 SQ 12/03/16 21:00 01/03/17 20:59 12/04/16 08:41 5,000 UNIT Heparin Sodium (Porcine) (No Heparin In Dialysis) 1 ea TODAY@0800 N/A 12/04/16 08:00 12/04/16 18:00 Albumin Human (Albumin 25%) 12.5 gm 0800,0930 IV 12/04/16 08:00 12/04/16 18:00 Epoetin Samm 80596 units/ Syringe 0.6 ml @ 1 mls/min TODAY@0800 IV. 12/04/16 08:00 12/04/16 18:00 Midodrine (Proamatine Tab) 7.5 mg TID@08,,17 PO 12/04/16 08:00 12/29/16 07:59 12/04/16 08:44 7.5 MG Mirtazapine (Remeron Tab) 7.5 mg HS PO 12/04/16 21:00 12/13/16 20:59 Ferrous Sulfate (Feosol Tab) 325 mg TIDM PO 12/04/16 11:30 01/03/17 11:29 Insulin Glargine (Lantus Solostar Pen) SEE PROTOCOL BID SC 12/04/16 21:00 01/03/17 20:59 Vital Signs: Date Time Temp Pulse Resp B/P (MAP) Pulse Ox O2 Delivery O2 Flow Rate FiO2 12/04/16 07:00 66 20 97/44 (61) 97 12/04/16 06:45 69 19 116/52 (73) 97 12/04/16 06:30 67 19 89/40 (56) 97 12/04/16 06:24 65 18 94/51 (65) 97 12/04/16 06:15 64 19 94/51 (65) 97 12/04/16 06:05 65 20 81/38 (52) 12/04/16 06:00 65 15 61/42 (48) 97 12/04/16 04:15 66 15 88/35 (52) 99 12/04/16 04:00 36.9 66 16 86/36 (53) 99 12/04/16 04:00 98 Nasal Cannula 2.0 12/04/16 02:30 70 16 107/51 (69) 99 12/04/16 02:15 74 18 94/44 (61) 98 12/04/16 02:00 72 17 84/41 (55) 97 12/04/16 00:00 37.0 68 19 85/40 (55) 98 12/03/16 23:59 98 Nasal Cannula 2.0 12/03/16 23:45 70 18 89/45 (60) 99 12/03/16 23:30 67 14 87/38 (54) 98 12/03/16 23:15 69 14 90/33 (52) 99 12/03/16 23:00 69 21 85/38 (54) 99 12/03/16 22:45 69 20 89/37 (54) 99 12/03/16 22:30 69 16 86/34 (51) 100 12/03/16 22:15 71 17 85/36 (52) 99 12/03/16 22:00 69 17 86/32 (50) 99 12/03/16 21:45 69 15 92/43 (59) 99 12/03/16 21:30 72 20 98/41 (60) 98 12/03/16 21:16 76 23 71/52 (58) 12/03/16 21:00 72 14 89/34 (52) 100 12/03/16 20:45 69 15 77/40 (52) 100 12/03/16 20:30 69 21 87/39 (55) 83 12/03/16 20:15 68 31 101/39 (59) 94 12/03/16 20:01 36.6 75 26 92/56 (68) 94 12/03/16 20:00 Nasal Cannula 3.0 12/03/16 18:00 69 20 103/45 (64) 99 12/03/16 16:00 36.9 69 17 95/42 (59) 100 12/03/16 16:00 100 Nasal Cannula 6.0 12/03/16 14:00 76 17 110/49 (69) 99 12/03/16 13:20 36.5 64 94/39 (57) 12/03/16 12:45 64 92/46 12/03/16 12:30 65 82/46 12/03/16 12:15 64 93/45 12/03/16 12:15 66 18 93/45 (61) 98 12/03/16 12:00 95 Nasal Cannula 6.0 12/03/16 12:00 36.7 65 19 86/59 (68) 95 Nasal Cannula 6.0 12/03/16 12:00 66 86/59 12/03/16 11:45 61 91/46 12/03/16 11:30 62 77/42 12/03/16 11:15 62 80/35 12/03/16 11:00 60 87/37 12/03/16 10:45 63 86/36 12/03/16 10:30 65 88/35 12/03/16 10:15 63 86/36 12/03/16 10:00 66 16 90/46 (61) 97 Nasal Cannula 6.0 12/03/16 10:00 65 90/46 Laboratory Results: Last 24 Hours Test 12/03/16 11:28 12/03/16 16:38 12/03/16 21:09 12/04/16 05:11 Bedside Glucose 113 mg/dl 127 mg/dl 173 mg/dl White Blood Count 16.02 K/uL Red Blood Count 2.88 M/uL Hemoglobin 8.6 g/dL Hematocrit 27.4 % Mean Corpuscular Volume 95.1 fL Mean Corpuscular Hemoglobin 29.9 pg Mean Corpuscular Hemoglobin Concent 31.4 g/dl Platelet Count 99 K/uL Mean Platelet Volume 11.1 fL Neutrophils (%) (Auto) 75.2 % Lymphocytes (%) (Auto) 14.2 % Monocytes (%) (Auto) 8.7 % Eosinophils (%) (Auto) 1.1 % Basophils (%) (Auto) 0.2 % Neutrophils # (Auto) 12.06 K/uL Lymphocytes # (Auto) 2.28 K/uL Monocytes # (Auto) 1.39 K/uL Eosinophils # (Auto) 0.17 K/uL Basophils # (Auto) 0.03 K/uL RDW Standard Deviation 81.6 fL RDW Coefficient of Variation 24.0 % Immature Granulocyte % (Auto) 0.6 % Immature Granulocyte # (Auto) 0.09 K/uL Platelet Estimate DECREASED Large Platelets 1+ Anisocytosis PRESENT Sodium Level 138 mmol/L Potassium Level 3.8 mmol/L Chloride Level 101 mmol/L Carbon Dioxide Level 27 mmol/L Anion Gap 10.0 mmol/L Blood Urea Nitrogen 28 mg/dl Creatinine 3.50 mg/dl Est Creatinine Clear Calc Drug Dose 12.9 ml/min Estimated GFR () 13.9 Estimated GFR (Non- 12.0 BUN/Creatinine Ratio 8.1 Random Glucose 146 mg/dl Calcium Level 7.7 mg/dl Total Bilirubin 1.6 mg/dl Aspartate Amino Transf (AST/SGOT) 88 U/L Alanine Aminotransferase (ALT/SGPT) 32 U/L Alkaline Phosphatase 224 U/L Total Protein 5.9 gm/dl Albumin 2.1 gm/dl Globulin 3.8 gm/dl Albumin/Globulin Ratio 0.6 Procalcitonin 1.72 ng/ml Test 12/04/16 06:35 12/04/16 07:47 12/04/16 08:12 Bedside Glucose 169 mg/dl 192 mg/dl Problem Qualifiers (1) DM type 2 (diabetes mellitus, type 2): Diabetes mellitus complication status: with unspecified complications Diabetes mellitus oil heaterman insulin use: without oil heaterman use Qualified Codes : E11.8 - Type 2 diabetes mellitus with unspecified complications (2) Varices, esophageal: Esophageal varices type: unspecified type
--- NOTE | 2016-12-04 13:24 | Pharmacy Progress Note ---
Glycemic Control Progress Note Date of Service Dec 04, 2016. Scope Glycemic Pharmacist consulted for glycemic control to write orders per [facility] inpatient glycemic control protocol. Objective Accuchecks BSG (last 24hrs): Test 12/03/16 16:38 12/03/16 21:09 12/04/16 05:11 12/04/16 06:35 Bedside Glucose 127 mg/dl (70-90) 173 mg/dl (70-90) 169 mg/dl (70-90) Random Glucose 146 mg/dl (70-99) Test 12/04/16 07:47 Bedside Glucose 192 mg/dl (70-90) HbA1c: Test 11/18/16 06:40 Hemoglobin A1c 6.8 % (4.5-5.6) H Recent Pertinent Medications The patient is currently receiving: * Basal insulin: Lantus SQ BID; 10 units if BSG less than 140, 14 units if BSG 140 or greater * Correctional Insulin: Novolog Correction per scale ACHS Goal Range: Low 110 mg/dL - High 140 mg/dL Correction Factor: 30 mg/dL/unit * Prandial insulin: Per carb ratio of 1 unit per 10 grams CHO consumed * Oral Agents: none currently Outpatient Anti-Diabetic Meds Diet controlled A1c 6.8% 11/18/16 Assessment & Plan ASSESSMENT: 12/03/16 * Glycemic control has been quite good over the last 24 hrs, all BSGs at goal with the exception of HS BSG of 228 which may have been due to lack of carb coverage with dinner (patient may have had Boost w/ dinner). All other BSGs 115 -164 * Fasting BSG 141-164 this AM with 28 units basal insulin on board. Given low PO intake over the last few days and most BSGs yesterday 115-140, I am hesitant to increase the basal insulin dose at this time. A small dose increase may be tolerated well, however most BSGs at goal at this time. * Given low PO intake it is difficult to assess CR, but plan to continue the same for now and follow post-prandial BSGs 12/04/16 * BSGs have ranged 113-173 over the last 24 hrs * PO intake was poor yesterday however patient did consume 3 servings of Boost per eMAR * Fasting BSG 146-169 this AM with 28 units on Lantus on board - current dose should be reflective of steady-state; will titrate up today * Post-prandial BSGs well controlled yesterday however CR was not used despite patient consuming Boost supplements; will follow BSG trend today as CR was used with breakfast this AM PLAN FOR INPATIENT GLYCEMIC CONTROL: * Increase Lantus SQ BID: to 12 units if BSG less than 140, 16 units if BSG 140 or greater * Continue correction factor of 30 mg/dl/unit * Continuing carb ratio 1 unit per 10 grams CHO consumed * Continuing goal range Low 110 mg/dL - High 140 mg/dL RECOMMENDATIONS FOR DISCHARGE: * May resume dietary measures for control of diabetes on discharge unless patient still requiring insulin on day of discharge due to stress of infection * Please note that the plan above was derived based on current level of insulin resistance and hospital stress. These recommendations are appropriate for inpatient admission only. Plan of care upon discharge will need to be reassessed to avoid potential outpatient hypo/hyperglycemia. Thank you.
[2016-12-04 13:32] LABS: MAGNESIUM 1.9 mg/dl (1.8-2.4); PHOSPHORUS 1.9 mg/dl (2.5-4.9)
[2016-12-04] MEDS: FERROUS SULFATE 325 MG TAB PO SCH ×2 (14:22→16:49)
--- NOTE | 2016-12-04 14:28 | Pulmonology Progress Note ---
Pulmonary Progress Note Date of Service Dec 04, 2016. Attending Dr. Phoenix Subjective Patient initially was admitted for concerns of increasing SOB. She had been having increasing SOB for about 1 month [employer] along with TAVARES. The patient does have history of cirrhosis, ascites, and esophageal varices. The patient has had paracentesis in the past as well. On initial CT evaluation, the patient was noted to have moderate right pleural effusion and small left pleural effusion with atelectasis associated. She also had a ground glass CALIN opacity suspicious for pneumonitis. Ascites and splenomegaly was noted. Repeat CT scan of the chest showed large right pleural effusion with near-complete atelectasis of the right lung- increased in size from prior CT. CALIN opacity still was noted. Cirrhosis with evidence of portal HTN was also noted. Right internal jugular vein permcath inserted on 11/27/16 Chest tube inserted on 12/02/16 for concerns of recurrent right pleural effusion , acute hypoxic respiratory failure. Small right apical pneumonthorax noted post-procedure. 20 cmH2O suction was placed for 24 hours after. Repeat CXR showed continued, small right apical pneumo. Patient is feeling much improved today. She states that breathing is easier, and she does not really have any pain. She complains of mild discomfort around the chest tube, but otherwise no radiating pain. Pulmonary was reconsulted to assess the possibility of PleurX catheter insertion. Workup: Right Chest Tube drainage: 12/02: 3030 mL 12/03: 2170 mL 12/04 (so far today): 650 mL WBC count today was 16.02. H/H 8.6/27.4 Creatinine 3.50 Total Bilirubin 1.6 AST 88 ALT 32 Alk Phos 224 Serum Albumin 2.1 Total Protein 5.9 CXR showed persistent, unchanged small right apical pneumothorax, trace b/l pleural effusions, and bibasilar opacities L>R. Pleural Fluid Analysis 11/23/16: Total protein 2.2 Glucose 162 Amylase [address] 4000 Pleural fluid Cx: No growth Pleural fluid AFB: pending final- no AFB seen on gram stain MRSA nasal swab: Negative Objective General: Patient is awake, alert, cooperative, and in no acute distress. Well developed. Well-nourished. Skin: Normal appearance, texture, and temperature. No apparent rash or ecchymoses. HEENT: Normocephalic and atraumatic. Eyes are anicteric and non-erythematous. EOMI c PERRLA. Hearing intact and without difficulty. Nose appears normal and without drainage. Trachea midline. Thyroid appears normal, and neck is supple. Lungs: Mild coarse breath sounds right base, otherwise clear. No accessory muscle use. Chest is nontender to palpation. Chest tube right-sided/ posterior. Heart: Regular rate and rhythm. Normal S1 and S2 heard. Systolic murmur appreciated. Abdomen: Active bowel sounds heard throughout all 4 quadrants. Abdomen is soft and nontender with no organomegally or masses to palpation. Extremities: No cyanosis or edema. Freely moving extremities during exam. Neuro: Alert. CN II-XII grossly intact. Sensation and motor function grossly intact. Psych: Mood and affect are normal. 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 Currently patient has right-sided chest tube in place. After discussion with ICU team, agreed to clamp tube and monitor patient closely for fluid accumulation/symptoms. Ultimately, the patient may need removal of tube due to concerns with continued drainage of hepatic hydrothorax including dehydration, renal failure, etc. Small apical right-sided pneumothorax: Agree with monitoring. No aggressive treatment necessary at this time. Nonalcoholic steatohepatitis: Likely the cause of her recurrent pleural effusion. Patient may ultimately need evaluation for transplant. Chronic kidney disease: Also possible cause of right-sided pleural effusion. Will send pleural fluid creatinine for possibility of urinothorax. Supplemental O2 therapy to be continued and titrated as tolerated. Patient indicates reviewed and agree with plan Data Medications: Current Inpatient Medications Medications (Trade) Dose Ordered Sig/Edilson Route Start Time Stop Time Status Last Admin Dose Admin Albuterol (Ventolin Hfa Inhaler) 2 puffs Q4 PRN INH 11/12/16 22:00 12/12/16 21:59 Atorvastatin Calcium (Lipitor Tab) 10 mg HS PO 11/13/16 21:00 12/13/16 20:59 12/03/16 21:02 10 MG Cholestyramine Resin (Questran Powder Light) 4 gm BID@, PO 11/12/16 22:00 12/12/16 21:59 11/28/16 10:00 4 GM Ondansetron HCl (Zofran Tab) 4 mg Q6H PRN PO 11/12/16 22:00 12/12/16 21:59 12/04/16 08:45 4 MG Pantoprazole Sodium (Protonix Tab) 40 mg DAILY PO 11/13/16 09:00 12/13/16 08:59 12/04/16 08:00 40 MG Buspirone HCl (Buspar Tab) 10 mg TID PO 11/13/16 09:00 12/13/16 08:59 12/04/16 08:01 10 MG Loperamide HCl (Imodium Cap) 2 mg Q12H PRN PO 11/12/16 22:00 12/12/16 21:59 12/04/16 08:44 2 MG Glucose (Glucose 40% Gel) 15-30 GRAMS 15 GRAMS... UD PRN PO 11/17/16 12:45 12/17/16 12:44 Glucose (Glucose Chew Tab) 4-8 Tablets 4 Tabl... UD PRN PO 11/17/16 12:45 12/17/16 12:44 Dextrose (Dextrose 50% 50ML Syringe) 25-50ML OF 50% DW IV FOR... UD PRN IV 11/17/16 12:45 12/17/16 12:44 Glucagon (Glucagon Inj) 1 mg UD PRN SQ 11/17/16 12:45 12/17/16 12:44 Polyethylene (Miralax Powder Packet) 17 gm DAILY PRN PO 11/17/16 12:45 12/17/16 12:44 Docusate Sodium (coLACE CAP) 100 mg BID PO 11/17/16 21:00 12/17/16 20:59 12/03/16 21:01 100 MG Al Hydroxide/Mg Hydroxide (Maalox Susp) 15 ml Q4H PRN PO 11/21/16 21:45 12/21/16 21:44 12/04/16 02:37 15 ML Miscellaneous Information (Consult Glycemic Management Pharmacy) 1 ea UD PRN N/A 11/23/16 09:47 12/23/16 09:46 Enteral Nutritional Formula (Boost Glucose Control) 0.5 can ACHS PO 11/23/16 11:00 12/23/16 10:59 12/04/16 06:45 0.5 CAN Insulin Aspart (novoLOG ASPART) SLIDING SCALE ACHS SC 11/24/16 21:00 12/24/16 20:59 12/04/16 08:39 7 UNITS Benzonatate (Tessalon Perles Cap) 100 mg TID PRN PO 11/24/16 15:00 12/24/16 14:59 11/27/16 20:58 100 MG Oxymetazoline HCl (Afrin 0.05% Nasal [place]) 1 sprays Q6H PRN NA 11/25/16 11:00 12/25/16 10:59 Morphine Sulfate (MoRPHine SULFATE INJ) 3 mg Q3HWA PRN IV 11/27/16 11:45 12/11/16 11:44 12/02/16 14:29 3 MG Oxycodone/ Acetaminophen (Percocet 5-325mg Tab) 1 tab Q4H PRN PO 12/01/16 13:30 12/15/16 13:29 Piperacillin Sod/ Tazobactam Sod (Consult) 1 ea UD PRN N/A 12/02/16 08:00 01/01/17 07:59 Piperacillin Sod/ Tazobactam Sod 3.375 gm/Dextrose 115 ml @ 28.75 mls/ hr Q12@0400,1600 IV 12/02/16 16:00 12/09/16 15:59 12/04/16 04:08 28.75 MLS/HR Propranolol HCl (Inderal Tab) 10 mg TID PO 12/02/16 14:00 01/01/17 13:59 12/04/16 08:34 10 MG Ascorbic Acid (Vitamin C Tab) 500 mg QAM PO 12/03/16 09:00 01/02/17 08:59 12/04/16 07:59 500 MG Zinc Sulfate (Zinc Sulfate Cap) 220 mg QAM PO 12/03/16 09:00 01/02/17 08:59 12/04/16 08:00 220 MG Albuterol/ Ipratropium (Duoneb) 3 ml Q4R PRN INH 12/03/16 08:45 01/02/17 08:44 Heparin Sodium (Porcine) (Heparin Sq 5000 Unit/0.5ml) 5,000 unit Q12 SQ 12/03/16 21:00 01/03/17 20:59 12/04/16 08:41 5,000 UNIT Heparin Sodium (Porcine) (No Heparin In Dialysis) 1 ea TODAY@0800 N/A 12/04/16 08:00 12/04/16 18:00 Albumin Human (Albumin 25%) 12.5 gm 0800,0930 IV 12/04/16 08:00 12/04/16 18:00 Epoetin Samm 41015 units/ Syringe 0.6 ml @ 1 mls/min TODAY@0800 IV. 12/04/16 08:00 12/04/16 18:00 Midodrine (Proamatine Tab) 7.5 mg TID@, PO 12/04/16 08:00 12/29/16 07:59 12/04/16 08:44 7.5 MG Mirtazapine (Remeron Tab) 7.5 mg HS PO 12/04/16 21:00 12/13/16 20:59 Ferrous Sulfate (Feosol Tab) 325 mg TIDM PO 12/04/16 11:30 01/03/17 11:29 Insulin Glargine (Lantus Solostar Pen) SEE PROTOCOL BID SC 12/04/16 21:00 01/03/17 20:59 Vital Signs: Date Time Temp Pulse Resp B/P (MAP) Pulse Ox O2 Delivery O2 Flow Rate FiO2 12/04/16 07:00 66 20 97/44 (61) 97 12/04/16 06:45 69 19 116/52 (73) 97 12/04/16 06:30 67 19 89/40 (56) 97 12/04/16 06:24 65 18 94/51 (65) 97 12/04/16 06:15 64 19 94/51 (65) 97 12/04/16 06:05 65 20 81/38 (52) 12/04/16 06:00 65 15 61/42 (48) 97 12/04/16 04:15 66 15 88/35 (52) 99 12/04/16 04:00 36.9 66 16 86/36 (53) 99 12/04/16 04:00 98 Nasal Cannula 2.0 12/04/16 02:30 70 16 107/51 (69) 99 12/04/16 02:15 74 18 94/44 (61) 98 12/04/16 02:00 72 17 84/41 (55) 97 12/04/16 00:00 37.0 68 19 85/40 (55) 98 12/03/16 23:59 98 Nasal Cannula 2.0 12/03/16 23:45 70 18 89/45 (60) 99 12/03/16 23:30 67 14 87/38 (54) 98 12/03/16 23:15 69 14 90/33 (52) 99 12/03/16 23:00 69 21 85/38 (54) 99 12/03/16 22:45 69 20 89/37 (54) 99 12/03/16 22:30 69 16 86/34 (51) 100 12/03/16 22:15 71 17 85/36 (52) 99 12/03/16 22:00 69 17 86/32 (50) 99 12/03/16 21:45 69 15 92/43 (59) 99 12/03/16 21:30 72 20 98/41 (60) 98 12/03/16 21:16 76 23 71/52 (58) 12/03/16 21:00 72 14 89/34 (52) 100 12/03/16 20:45 69 15 77/40 (52) 100 12/03/16 20:30 69 21 87/39 (55) 83 12/03/16 20:15 68 31 101/39 (59) 94 12/03/16 20:01 36.6 75 26 92/56 (68) 94 12/03/16 20:00 Nasal Cannula 3.0 12/03/16 18:00 69 20 103/45 (64) 99 12/03/16 16:00 36.9 69 17 95/42 (59) 100 12/03/16 16:00 100 Nasal Cannula 6.0 12/03/16 14:00 76 17 110/49 (69) 99 12/03/16 13:20 36.5 64 94/39 (57) 12/03/16 12:45 64 92/46 12/03/16 12:30 65 82/46 12/03/16 12:15 64 93/45 12/03/16 12:15 66 18 93/45 (61) 98 12/03/16 12:00 95 Nasal Cannula 6.0 12/03/16 12:00 36.7 65 19 86/59 (68) 95 Nasal Cannula 6.0 12/03/16 12:00 66 86/59 12/03/16 11:45 61 91/46 12/03/16 11:30 62 77/42 12/03/16 11:15 62 80/35 12/03/16 11:00 60 87/37 12/03/16 10:45 63 86/36 12/03/16 10:30 65 88/35 12/03/16 10:15 63 86/36 Laboratory Results: Last 24 Hours Test 12/03/16 11:28 12/03/16 16:38 12/03/16 21:09 12/04/16 05:11 Bedside Glucose 113 mg/dl 127 mg/dl 173 mg/dl White Blood Count 16.02 K/uL Red Blood Count 2.88 M/uL Hemoglobin 8.6 g/dL Hematocrit 27.4 % Mean Corpuscular Volume 95.1 fL Mean Corpuscular Hemoglobin 29.9 pg Mean Corpuscular Hemoglobin Concent 31.4 g/dl Platelet Count 99 K/uL Mean Platelet Volume 11.1 fL Neutrophils (%) (Auto) 75.2 % Lymphocytes (%) (Auto) 14.2 % Monocytes (%) (Auto) 8.7 % Eosinophils (%) (Auto) 1.1 % Basophils (%) (Auto) 0.2 % Neutrophils # (Auto) 12.06 K/uL Lymphocytes # (Auto) 2.28 K/uL Monocytes # (Auto) 1.39 K/uL Eosinophils # (Auto) 0.17 K/uL Basophils # (Auto) 0.03 K/uL RDW Standard Deviation 81.6 fL RDW Coefficient of Variation 24.0 % Immature Granulocyte % (Auto) 0.6 % Immature Granulocyte # (Auto) 0.09 K/uL Platelet Estimate DECREASED Large Platelets 1+ Anisocytosis PRESENT Sodium Level 138 mmol/L Potassium Level 3.8 mmol/L Chloride Level 101 mmol/L Carbon Dioxide Level 27 mmol/L Anion Gap 10.0 mmol/L Blood Urea Nitrogen 28 mg/dl Creatinine 3.50 mg/dl Est Creatinine Clear Calc Drug Dose 12.9 ml/min Estimated GFR () 13.9 Estimated GFR (Non- 12.0 BUN/Creatinine Ratio 8.1 Random Glucose 146 mg/dl Calcium Level 7.7 mg/dl Total Bilirubin 1.6 mg/dl Aspartate Amino Transf (AST/SGOT) 88 U/L Alanine Aminotransferase (ALT/SGPT) 32 U/L Alkaline Phosphatase 224 U/L Total Protein 5.9 gm/dl Albumin 2.1 gm/dl Globulin 3.8 gm/dl Albumin/Globulin Ratio 0.6 Procalcitonin 1.72 ng/ml Test 12/04/16 06:35 12/04/16 07:47 12/04/16 08:12 Bedside Glucose 169 mg/dl 192 mg/dl
--- NOTE | 2016-12-04 18:41 | Nephrology Progress Note ---
Nephrology Progress Note Date of Service: Dec 04, 2016. Subjective CT w/ ongoing large output; clamped today though and for eval for pleurex. tolerated HD; on RA now and denies dypsnea; still swollen; + N , no appetite Objective Date Time Temp Pulse Resp B/P (MAP) Pulse Ox O2 Delivery O2 Flow Rate FiO2 12/04/16 16:00 92 Room Air 12/04/16 16:00 36.6 75 18 106/44 (64) 95 Room Air 12/04/16 13:08 36.6 63 99/33 (55) 12/04/16 12:43 62 105/40 12/04/16 12:15 62 87/41 12/04/16 12:01 36.9 69 20 97/53 (68) 91 Room Air 12/04/16 12:00 97 Room Air 12/04/16 12:00 60 97/53 12/04/16 12:00 69 25 91 12/04/16 11:45 68 96/56 12/04/16 11:30 68 89/35 12/04/16 11:15 60 97/39 12/04/16 11:00 61 86/45 12/04/16 10:45 68 98/42 12/04/16 10:30 68 98/49 12/04/16 10:25 36.5 66 88/36 (53) 12/04/16 10:15 67 17 99/39 (59) 94 Room Air 12/04/16 10:12 65 99/39 12/04/16 10:00 69 24 77/52 (60) 94 Room Air 12/04/16 08:00 36.6 66 16 87/33 (51) 94 Room Air 12/04/16 08:00 94 Room Air 12/04/16 07:00 66 20 97/44 (61) 97 12/04/16 06:45 69 19 116/52 (73) 97 12/04/16 06:30 67 19 89/40 (56) 97 12/04/16 06:24 65 18 94/51 (65) 97 12/04/16 06:15 64 19 94/51 (65) 97 12/04/16 06:05 65 20 81/38 (52) 12/04/16 06:00 65 15 61/42 (48) 97 12/04/16 04:15 66 15 88/35 (52) 99 12/04/16 04:00 36.9 66 16 86/36 (53) 99 12/04/16 04:00 98 Nasal Cannula 2.0 12/04/16 02:30 70 16 107/51 (69) 99 12/04/16 02:15 74 18 94/44 (61) 98 12/04/16 02:00 72 17 84/41 (55) 97 12/04/16 00:00 37.0 68 19 85/40 (55) 98 12/03/16 23:59 98 Nasal Cannula 2.0 12/03/16 23:45 70 18 89/45 (60) 99 12/03/16 23:30 67 14 87/38 (54) 98 12/03/16 23:15 69 14 90/33 (52) 99 12/03/16 23:00 69 21 85/38 (54) 99 12/03/16 22:45 69 20 89/37 (54) 99 12/03/16 22:30 69 16 86/34 (51) 100 12/03/16 22:15 71 17 85/36 (52) 99 12/03/16 22:00 69 17 86/32 (50) 99 12/03/16 21:45 69 15 92/43 (59) 99 12/03/16 21:30 72 20 98/41 (60) 98 12/03/16 21:16 76 23 71/52 (58) 12/03/16 21:00 72 14 89/34 (52) 100 12/03/16 20:45 69 15 77/40 (52) 100 12/03/16 20:30 69 21 87/39 (55) 83 12/03/16 20:15 68 31 101/39 (59) 94 12/03/16 20:01 36.6 75 26 92/56 (68) 94 12/03/16 20:00 Nasal Cannula 3.0 Physical Exam: General-RA, occasional cough and sob w/ speech; nad, a& O x 3 but tired Eyes-eomi ENT-dry mm Neck-supple Lungs-very diminished Heart-RRR; 2-3+ BL ankle/pedal edema Abdomen-soft NT + bs, no garcia Extremities-no c/c Neuro-mendes, fluent speech Current Inpatient Medications Medications (Trade) Dose Ordered Sig/Edilson Route Start Time Stop Time Status Last Admin Dose Admin Albuterol (Ventolin Hfa Inhaler) 2 puffs Q4 PRN INH 11/12/16 22:00 12/12/16 21:59 Atorvastatin Calcium (Lipitor Tab) 10 mg HS PO 11/13/16 21:00 12/13/16 20:59 12/03/16 21:02 10 MG Cholestyramine Resin (Questran Powder Light) 4 gm BID@ PO 11/12/16 22:00 12/12/16 21:59 11/28/16 10:00 4 GM Ondansetron HCl (Zofran Tab) 4 mg Q6H PRN PO 11/12/16 22:00 12/12/16 21:59 12/04/16 08:45 4 MG Pantoprazole Sodium (Protonix Tab) 40 mg DAILY PO 11/13/16 09:00 12/13/16 08:59 12/04/16 08:00 40 MG Buspirone HCl (Buspar Tab) 10 mg TID PO 11/13/16 09:00 12/13/16 08:59 12/04/16 14:00 10 MG Loperamide HCl (Imodium Cap) 2 mg Q12H PRN PO 11/12/16 22:00 12/12/16 21:59 12/04/16 08:44 2 MG Glucose (Glucose 40% Gel) 15-30 GRAMS 15 GRAMS... UD PRN PO 11/17/16 12:45 12/17/16 12:44 Glucose (Glucose Chew Tab) 4-8 Tablets 4 Tabl... UD PRN PO 11/17/16 12:45 12/17/16 12:44 Dextrose (Dextrose 50% 50ML Syringe) 25-50ML OF 50% DW IV FOR... UD PRN IV 11/17/16 12:45 12/17/16 12:44 Glucagon (Glucagon Inj) 1 mg UD PRN SQ 11/17/16 12:45 12/17/16 12:44 Polyethylene (Miralax Powder Packet) 17 gm DAILY PRN PO 11/17/16 12:45 12/17/16 12:44 Docusate Sodium (coLACE CAP) 100 mg BID PO 11/17/16 21:00 12/17/16 20:59 12/03/16 21:01 100 MG Al Hydroxide/Mg Hydroxide (Maalox Susp) 15 ml Q4H PRN PO 11/21/16 21:45 12/21/16 21:44 12/04/16 02:37 15 ML Miscellaneous Information (Consult Glycemic Management Pharmacy) [address] [facility] PRN N/A 11/23/16 09:47 12/23/16 09:46 Enteral Nutritional Formula (Boost Glucose Control) 0.5 can ACHS PO 11/23/16 11:00 12/23/16 10:59 12/04/16 16:00 0.5 CAN Insulin Aspart (novoLOG ASPART) SLIDING SCALE ACHS SC 11/24/16 21:00 12/24/16 20:59 12/04/16 16:51 6 UNITS Benzonatate (Tessalon Perles Cap) 100 mg TID PRN PO 11/24/16 15:00 12/24/16 14:59 11/27/16 20:58 100 MG Oxymetazoline HCl (Afrin 0.05% Nasal [place]) 1 sprays Q6H PRN NA 11/25/16 11:00 12/25/16 10:59 Morphine Sulfate (MoRPHine SULFATE INJ) 3 mg Q3HWA PRN IV 11/27/16 11:45 12/11/16 11:44 12/02/16 14:29 3 MG Oxycodone/ Acetaminophen (Percocet 5-325mg Tab) 1 tab Q4H PRN PO 12/01/16 13:30 12/15/16 13:29 Piperacillin Sod/ Tazobactam Sod (Consult) [address] [facility] PRN N/A 12/02/16 08:00 01/01/17 07:59 Piperacillin Sod/ Tazobactam Sod 3.375 gm/Dextrose 115 ml @ 28.75 mls/ hr Q12@0400,1600 IV 12/02/16 16:00 12/09/16 15:59 12/04/16 16:52 28.75 MLS/HR Propranolol HCl (Inderal Tab) 10 mg TID PO 12/02/16 14:00 01/01/17 13:59 12/04/16 14:00 10 MG Ascorbic Acid (Vitamin C Tab) 500 mg QAM PO 12/03/16 09:00 01/02/17 08:59 12/04/16 07:59 500 MG Zinc Sulfate (Zinc Sulfate Cap) 220 mg QAM PO 12/03/16 09:00 01/02/17 08:59 12/04/16 08:00 220 MG Albuterol/ Ipratropium (Duoneb) 3 ml Q4R PRN INH 12/03/16 08:45 01/02/17 08:44 Heparin Sodium (Porcine) (Heparin Sq 5000 Unit/0.5ml) 5,000 unit Q12 SQ 12/03/16 21:00 01/03/17 20:59 12/04/16 08:41 5,000 UNIT Midodrine (Proamatine Tab) 7.5 mg TID@ PO 12/04/16 08:00 12/29/16 07:59 12/04/16 16:50 7.5 MG Mirtazapine (Remeron Tab) 7.5 mg HS PO 12/04/16 21:00 12/13/16 20:59 Ferrous Sulfate (Feosol Tab) 325 mg TIDM PO 12/04/16 11:30 01/03/17 11:29 12/04/16 16:49 325 MG Insulin Glargine (Lantus Solostar Pen) SEE PROTOCOL BID SC 12/04/16 21:00 01/03/17 20:59 Last 24 Hours Test 12/03/16 21:09 12/04/16 05:11 12/04/16 06:35 12/04/16 07:47 Bedside Glucose 173 mg/dl 169 mg/dl 192 mg/dl White Blood Count 16.02 K/uL Red Blood Count 2.88 M/uL Hemoglobin 8.6 g/dL Hematocrit 27.4 % Mean Corpuscular Volume 95.1 fL Mean Corpuscular Hemoglobin 29.9 pg Mean Corpuscular Hemoglobin Concent 31.4 g/dl Platelet Count 99 K/uL Mean Platelet Volume 11.1 fL Neutrophils (%) (Auto) 75.2 % Lymphocytes (%) (Auto) 14.2 % Monocytes (%) (Auto) 8.7 % Eosinophils (%) (Auto) 1.1 % Basophils (%) (Auto) 0.2 % Neutrophils # (Auto) 12.06 K/uL Lymphocytes # (Auto) 2.28 K/uL Monocytes # (Auto) 1.39 K/uL Eosinophils # (Auto) 0.17 K/uL Basophils # (Auto) 0.03 K/uL RDW Standard Deviation 81.6 fL RDW Coefficient of Variation 24.0 % Immature Granulocyte % (Auto) 0.6 % Immature Granulocyte # (Auto) 0.09 K/uL Platelet Estimate DECREASED Large Platelets 1+ Anisocytosis PRESENT Sodium Level 138 mmol/L Potassium Level 3.8 mmol/L Chloride Level 101 mmol/L Carbon Dioxide Level 27 mmol/L Anion Gap 10.0 mmol/L Blood Urea Nitrogen 28 mg/dl Creatinine 3.50 mg/dl Est Creatinine Clear Calc Drug Dose 12.9 ml/min Estimated GFR () 13.9 Estimated GFR (Non- 12.0 BUN/Creatinine Ratio 8.1 Random Glucose 146 mg/dl Calcium Level 7.7 mg/dl Total Bilirubin 1.6 mg/dl Aspartate Amino Transf (AST/SGOT) 88 U/L Alanine Aminotransferase (ALT/SGPT) 32 U/L Alkaline Phosphatase 224 U/L Total Protein 5.9 gm/dl Albumin 2.1 gm/dl Globulin 3.8 gm/dl Albumin/Globulin Ratio 0.6 Procalcitonin 1.72 ng/ml Test 12/04/16 12:47 12/04/16 14:16 12/04/16 16:46 Phosphorus Level 1.9 mg/dl Magnesium Level 1.9 mg/dl Total Bilirubin 2.4 mg/dl Direct Bilirubin 1.3 mg/dl Aspartate Amino Transf (AST/SGOT) 104 U/L Alanine Aminotransferase (ALT/SGPT) 38 U/L Alkaline Phosphatase 262 U/L Total Protein 7.6 gm/dl Albumin 3.1 gm/dl Bedside Glucose 147 mg/dl 160 mg/dl Assessment & Plan 76 yo female with arturo in setting of cirrhosis with aspiration pneumonia. started on midodrine 11/29 to help with bp while removing fluid. on 12/02 had acute hypoxic respiratory failure and moved to ICU > got C Tube on R. arturo on ckd-getting daily dialysis with gentle fluid removal. on midodrine to help with bp while removing fluid. plan on dialysis again tomorrow. Started HD 11/27; anuric currently. getting near daily HD to optimize fluid removal. for HD today; also plan again tomorrow and likely 12/06 d/t effusion/vol status as BP tolerates Anemia-multifactorial. use Fe, procrit for goal of 10 to [address]. [address] effusion and w/ acute hypoxic respiratory failure -s/p 12/02 chest tube w/ 1.6L fluid removed immediately and ongoing large output Appreciate consult.
[2016-12-04] MEDS: MIRTAZAPINE TAB 15 MG TAB PO SCH (21:32)
[2016-12-04] MEDS: ATORVASTATIN 10 MG TAB PO SCH (21:32)
--- NOTE | 2016-12-04 22:11 | Progress Note ---
Medicine Progress Note Date & Time of Visit: Dec 04, 2016 at 15:40 . Subjective Tired. No fever. Dyspnea improved since chest tube placed. Minimal nonproductive cough. No anginal symptoms. No nausea, vomiting, diarrhea. Minimal urine output. Underwent hemodialysis earlier today. . Objective Last 8 Hrs Date Time Temp Pulse Resp B/P (MAP) Pulse Ox O2 Delivery O2 Flow Rate FiO2 12/04/16 20:00 37.8 12/04/16 20:00 93 Room Air 12/04/16 18:00 69 23 100/35 (56) 93 12/04/16 16:00 92 Room Air 12/04/16 16:00 36.6 75 18 106/44 (64) 95 Room Air Physical Exam: General- no distress Lungs- rales right base Heart- regular Thorax- right chest tube Abdomen- distended, + BS, soft, nontender Extremities- 2+ pretibial edema; no calf tenderness Neuro- alert . Laboratory Results: Last 24 Hours Test 12/04/16 05:11 12/04/16 06:35 12/04/16 07:47 12/04/16 12:47 White Blood Count 16.02 K/uL Red Blood Count 2.88 M/uL Hemoglobin 8.6 g/dL Hematocrit 27.4 % Mean Corpuscular Volume 95.1 fL Mean Corpuscular Hemoglobin 29.9 pg Mean Corpuscular Hemoglobin Concent 31.4 g/dl Platelet Count 99 K/uL Mean Platelet Volume 11.1 fL Neutrophils (%) (Auto) 75.2 % Lymphocytes (%) (Auto) 14.2 % Monocytes (%) (Auto) 8.7 % Eosinophils (%) (Auto) 1.1 % Basophils (%) (Auto) 0.2 % Neutrophils # (Auto) 12.06 K/uL Lymphocytes # (Auto) 2.28 K/uL Monocytes # (Auto) 1.39 K/uL Eosinophils # (Auto) 0.17 K/uL Basophils # (Auto) 0.03 K/uL RDW Standard Deviation 81.6 fL RDW Coefficient of Variation 24.0 % Immature Granulocyte % (Auto) 0.6 % Immature Granulocyte # (Auto) 0.09 K/uL Platelet Estimate DECREASED Large Platelets 1+ Anisocytosis PRESENT Sodium Level 138 mmol/L Potassium Level 3.8 mmol/L Chloride Level 101 mmol/L Carbon Dioxide Level 27 mmol/L Anion Gap 10.0 mmol/L Blood Urea Nitrogen 28 mg/dl Creatinine 3.50 mg/dl Est Creatinine Clear Calc Drug Dose 12.9 ml/min Estimated GFR () 13.9 Estimated GFR (Non- 12.0 BUN/Creatinine Ratio 8.1 Random Glucose 146 mg/dl Calcium Level 7.7 mg/dl Total Bilirubin 1.6 mg/dl 2.4 mg/dl Aspartate Amino Transf (AST/SGOT) 88 U/L 104 U/L Alanine Aminotransferase (ALT/SGPT) 32 U/L 38 U/L Alkaline Phosphatase 224 U/L 262 U/L Total Protein 5.9 gm/dl 7.6 gm/dl Albumin 2.1 gm/dl 3.1 gm/dl Globulin 3.8 gm/dl Albumin/Globulin Ratio 0.6 Procalcitonin 1.72 ng/ml Bedside Glucose 169 mg/dl 192 mg/dl Phosphorus Level 1.9 mg/dl Magnesium Level 1.9 mg/dl Direct Bilirubin 1.3 mg/dl Test 12/04/16 14:16 12/04/16 16:46 12/04/16 21:25 Bedside Glucose 147 mg/dl 160 mg/dl 189 mg/dl Assessment & Plan ACUTE HYPOXIC RESPIRATORY FAILURE Secondary to large right pleural effusion. Pleural effusion most likely secondary to underlying ascites. Chest tube placed with improvement. Management per Pulmonary Medicine. ACUTE KIDNEY INJURY / CKD IV CKD IV. Creatinine in ED 2.5, compared to 1.9 on 10/29/16. Underlying cirrhosis on diuretic therapy. Nephrology consulted. Creatinine worsened and hemodialysis initiated. Ongoing management per Nephrology. ELEVATED TROPONIN No chest pain. Intermittent palpitations. EKG shows nonspecific T-wave changes. Serum troponin as high as 4.050. Total CPKs repeatedly normal; CPK-MB's essentially normal. Echocardiogram on 11/13/16 did not show any wall motion abnormalities. Elevated troponin probably nonspecific, perhaps related to fall. ASPIRATION PNEUMONIA Treated with course of piperacillin / tazobactam. 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 Associated portal hypertension, esophageal varices, ascites. Management per GI. LARGE HIATAL HERNIA Evaluated in past by Thoracic Surgery. Surgical intervention not advised due to comorbidities. Elevated head of bed. Upright when eating / drinking. Continue PPI. ANOREXIA / MALNUTRITION Probably multifactorial- hiatal hernia, GERD, cirrhosis, meds, dentition. Nutrition consulted for recommendations. Changed anti-depressant from fluoxetine to mirtazapine. HYPERTENSION Blood pressures running low. Amlodipine discontinued. ORTHOSTATIC HYPOTENSION Continue midodrine. Watch volume status. Fall precautions. DM TYPE 2 Usually diet-controlled. Random blood sugar in ED 144. Hgb A1C 6.7 on 09/06/16. Fasting blood sugar this morning = 192. ANXIETY / DEPRESSION On fluoxetine at time of admission that may be contributing to anorexia. Switched from fluoxetine to mirtazapine. Continue buspirone. DVT PROPHYLAXIS Moderately high risk for DVT. SQ heparin. Ambulate as able. GENERAL DEBILITATION Multifactorial. PT / OT evals. ADVANCED DIRECTIVES / RESUSCITATION STATUS Multiple chronic and acute medical concerns. Full resuscitation per recent discussions. Palliative Care consultation requested. DISPOSITION Discharge disposition to be determined. May need skilled care or inpatient rehab. Case Management consulted. Family Medicine follow-up with Dr. Sepulveda. . Consultants: Nephrology Current Inpatient Medications: Current Inpatient Medications Medications (Trade) Dose Ordered Sig/Edilson Route Start Time Stop Time Status Last Admin Dose Admin Albuterol (Ventolin Hfa Inhaler) 2 puffs Q4 PRN INH 11/12/16 22:00 12/12/16 21:59 Atorvastatin Calcium (Lipitor Tab) 10 mg HS PO 11/13/16 21:00 12/13/16 20:59 12/04/16 21:32 10 MG Cholestyramine Resin (Questran Powder Light) 4 gm BID@, PO 11/12/16 22:00 12/12/16 21:59 12/04/16 21:32 4 GM Ondansetron HCl (Zofran Tab) 4 mg Q6H PRN PO 11/12/16 22:00 12/12/16 21:59 12/04/16 18:49 4 MG Pantoprazole Sodium (Protonix Tab) 40 mg DAILY PO 11/13/16 09:00 12/13/16 08:59 12/04/16 08:00 40 MG Buspirone HCl (Buspar Tab) 10 mg TID PO 11/13/16 09:00 12/13/16 08:59 12/04/16 21:32 10 MG Loperamide HCl (Imodium Cap) 2 mg Q12H PRN PO 11/12/16 22:00 12/12/16 21:59 12/04/16 08:44 2 MG Glucose (Glucose 40% Gel) 15-30 GRAMS 15 GRAMS... UD PRN PO 11/17/16 12:45 12/17/16 12:44 Glucose (Glucose Chew Tab) 4-8 Tablets 4 Tabl... UD PRN PO 11/17/16 12:45 12/17/16 12:44 Dextrose (Dextrose 50% 50ML Syringe) 25-50ML OF 50% DW IV FOR... UD PRN IV 11/17/16 12:45 12/17/16 12:44 Glucagon (Glucagon Inj) 1 mg UD PRN SQ 11/17/16 12:45 12/17/16 12:44 Polyethylene (Miralax Powder Packet) 17 gm DAILY PRN PO 11/17/16 12:45 12/17/16 12:44 Docusate Sodium (coLACE CAP) 100 mg BID PO 11/17/16 21:00 12/17/16 20:59 12/03/16 21:01 100 MG Al Hydroxide/Mg Hydroxide (Maalox Susp) 15 ml Q4H PRN PO 11/21/16 21:45 12/21/16 21:44 12/04/16 02:37 15 ML Miscellaneous Information (Consult Glycemic Management Pharmacy) 1 ea UD PRN N/A 11/23/16 09:47 12/23/16 09:46 Enteral Nutritional Formula (Boost Glucose Control) 0.5 can ACHS PO 11/23/16 11:00 12/23/16 10:59 12/04/16 21:32 0.5 CAN Insulin Aspart (novoLOG ASPART) SLIDING SCALE ACHS SC 11/24/16 21:00 12/24/16 20:59 12/04/16 21:31 2 UNITS Benzonatate (Tessalon Perles Cap) 100 mg TID PRN PO 11/24/16 15:00 12/24/16 14:59 11/27/16 20:58 100 MG Oxymetazoline HCl (Afrin 0.05% Nasal [place]) 1 sprays Q6H PRN NA 11/25/16 11:00 12/25/16 10:59 Morphine Sulfate (MoRPHine SULFATE INJ) 3 mg Q3HWA PRN IV 11/27/16 11:45 12/11/16 11:44 12/02/16 14:29 3 MG Oxycodone/ Acetaminophen (Percocet 5-325mg Tab) 1 tab Q4H PRN PO 12/01/16 13:30 12/15/16 13:29 Piperacillin Sod/ Tazobactam Sod (Consult) 1 ea UD PRN N/A 12/02/16 08:00 01/01/17 07:59 Piperacillin Sod/ Tazobactam Sod 3.375 gm/Dextrose 115 ml @ 28.75 mls/ hr Q12@0400,1600 IV 12/02/16 16:00 12/09/16 15:59 12/04/16 16:52 28.75 MLS/HR Propranolol HCl (Inderal Tab) 10 mg TID PO 12/02/16 14:00 01/01/17 13:59 12/04/16 14:00 10 MG Ascorbic Acid (Vitamin C Tab) 500 mg QAM PO 12/03/16 09:00 01/02/17 08:59 12/04/16 07:59 500 MG Zinc Sulfate (Zinc Sulfate Cap) 220 mg QAM PO 12/03/16 09:00 01/02/17 08:59 12/04/16 08:00 220 MG Albuterol/ Ipratropium (Duoneb) 3 ml Q4R PRN INH 12/03/16 08:45 01/02/17 08:44 Heparin Sodium (Porcine) (Heparin Sq 5000 Unit/0.5ml) 5,000 unit Q12 SQ 12/03/16 21:00 01/03/17 20:59 12/04/16 21:31 5,000 UNIT Midodrine (Proamatine Tab) 7.5 mg TID@ PO 12/04/16 08:00 12/29/16 07:59 12/04/16 16:50 7.5 MG Mirtazapine (Remeron Tab) 7.5 mg HS PO 12/04/16 21:00 12/13/16 20:59 12/04/16 21:32 7.5 MG Ferrous Sulfate (Feosol Tab) 325 mg TIDM PO 12/04/16 11:30 01/03/17 11:29 12/04/16 16:49 325 MG Insulin Glargine (Lantus Solostar Pen) SEE PROTOCOL BID SC 12/04/16 21:00 01/03/17 20:59 12/04/16 21:29 16 UNITS
[2016-12-05] VITALS (39 sets, daily range): BP systolic 70–103; BP diastolic 26–62; PULSE 56–73; TEMP 36.4–37.4; O2SAT 91–100
[2016-12-05] MEDS: PIPERACILL/TAZOBAC IV 3.375 GM in DEXTROSE 5% 100ML IV SCH ×2 (03:48→16:28)
[2016-12-05 05:32] LABS: MEAN CORPUSCULAR HGB CONC 32.3 g/dl (32-36)
[2016-12-05 05:53] LABS: HEMATOCRIT 24.8 % (37-47); MEAN CELL VOLUME 93.6 fL (80-100); MEAN CORPUSCULAR HEMOGLOBIN 30.2 pg (25-34); RED BLOOD COUNT 2.65 M/uL (4.2-5.4); WHITE BLOOD COUNT 16.35 K/uL (4.8-10.8)
[2016-12-05 06:04] LABS: BUN/CREATININE RATIO 7.2 (10-20); CALCIUM 7.5 mg/dl (8.5-10.1); CREATININE 3.3 mg/dl (0.60-1.20); MAGNESIUM 1.8 mg/dl (1.8-2.4); POTASSIUM 3.6 mmol/L (3.5-5.1)
[2016-12-05 06:11] LABS: MEAN PLATELET VOLUME 11.8 fL (7.4-10.4); PLATELET COUNT 90 K/uL (130-400)
[2016-12-05 06:12] LABS: PLT ESTIMATE DECREASED
[2016-12-05 06:14] LABS: ALB/GLOB RATIO 0.6 (0.9-2); PHOSPHORUS 4.1 mg/dl (2.5-4.9)
--- NOTE | 2016-12-05 06:57 | DIAGNOSTIC IMAGING REPORT ---
CHEST ONE VIEW PORTABLE HISTORY: 76 years-old Female RIGHT apical pneumothroax COMPARISON: Portable chest radiograph 12/04/2016 TECHNIQUE: Portable upright AP view of the chest FINDINGS: Cardiac silhouette is again enlarged. Right internal jugular dual-lumen hemodialysis catheter is noted with distal tip in the right atrium. There is atherosclerosis of the aorta. Small right apical pneumothorax is again seen, pleural separation of 1.1 cm which is unchanged. Small bilateral pleural effusions are redemonstrated with mildly worsened bibasilar opacities. There is mild pulmonary vascular congestion with background interstitial coarsening. The bones appear intact. IMPRESSION: 1. Unchanged appearance of small right apical pneumothorax. 2. Cardiomegaly with mild edema and progressive bibasilar opacities suggesting atelectasis with trace effusions. The above report was generated using voice recognition software. It may contain grammatical, syntax or spelling errors. Electronically signed by: Yovani Vivar M.D. 12/05/2016 6:56 AM Dictated Date/Time: 12/05/2016 6:54 AM
[2016-12-05] MEDS ORDERED: EPOETIN ALFA 10,000 UNITS/ML VIAL IV. ONE (07:30)
[2016-12-05] MEDS ORDERED: EPOETIN ALFA INJ 12,000 UNITS in SYRINGE 0 ML IV. SCH (07:30)
[2016-12-05] MEDS: ZINC SULFATE 220 MG CAP PO SCH (08:00)
[2016-12-05] MEDS: BOOST GLUCOSE CONTROL PO SCH ×4 (08:00→21:00)
[2016-12-05] MEDS: MIDODRINE 2.5 MG TAB PO SCH (08:01)
[2016-12-05] MEDS: ASCORBIC ACID 500 MG TAB PO SCH (08:01)
[2016-12-05] MEDS: FERROUS SULFATE 325 MG TAB PO SCH ×3 (08:01→18:21)
[2016-12-05] MEDS: PANTOprazole SOD 40 MG TAB PO SCH (08:02)
[2016-12-05] MEDS: PROPRANOLOL HCL 10 MG TAB PO SCH ×2 (09:00→20:10)
[2016-12-05] MEDS: DOCUSATE SODIUM 100 MG CAP PO SCH ×3 (09:00→21:06)
[2016-12-05] MEDS: INSULIN ASPART 100 UNITS/ML 3 ML PEN SC SCH ×4 (09:03→21:12)
[2016-12-05] MEDS: INSULIN GLARGINE SOLOSTAR 100 UNITS/ML 3 ML PEN SC SCH ×2 (09:05→21:13)
[2016-12-05] MEDS: ALBUMIN HUMAN 25% 12.5 GM/50 ML VIAL IV SCH ×2 (09:06→10:30)
--- NOTE | 2016-12-05 09:07 | Critical Care Progress Note ---
Critical Care Progress Note Date of Service Dec 05, 2016. ICU Day ICU Day Number: [address] Pandya Objective VITAL SIGNS - Vital signs and nursing notes were reviewed. GENERAL - 76-year-old female appearing her stated age who is in no acute distress. Communicates well with provider and answers questions appropriately. LUNGS - Chest wall symmetric without accessory muscle use, intercostals retractions, or central cyanosis. RIGHT sided Thal quick in place to the RIGHT lateral chest wall with clear yellowish serosanguineous fluid. Normal vesicular breath sounds CTA B/L. No wheezes or rhonchi appreciated. RIGHT greater than left basilar rales appreciated. CARDIAC - RRR with S1/S2. No murmur, rubs, or gallops appreciated. No reproducible tenderness to palpation appreciated over the anterior chest wall. ABDOMEN - Abdominal contour obese and without pulsations or visible masses. BS normoactive all four quadrants. No tenderness or palpable masses appreciated. EXTREMITIES - No clubbing or peripheral cyanosis. Moderate bilateral pretibial edema present. +2/5 radial and dorsalis pedis pulses palpated throughout. +5/5 strength noted in UE/LE bilaterally. NEUROLOGIC - Cranial nerves II through XII grossly intact. Sensory intact to light touch throughout. PSYCH - A&Ox3 and cooperates fully with examiner. Pt is very pleasant and interacts well with examiner. Current SOFA Score SOFA Score Response (Comments) Value Platelets (x10) < 100 2 Bilirubin (mg/dL) 1.2 - 1.9 1 [place] Coma Score 15 0 Level of Hypotension MAP less than 70 1 Creatinine (mg/dL) 2.0 - 3.4 2 Total 6 Previous SOFA Scores 7 Assessment & Plan (1) Acute respiratory failure with hypoxia (2) Transudative pleural effusion (3) DM type 2 (diabetes mellitus, type 2) (4) CKD (chronic kidney disease), stage IV (5) Varices, esophageal (6) MORRISON (nonalcoholic steatohepatitis) (7) Asthma (8) Pericardial effusion (9) Ascites of liver (10) Elevated troponin (11) Acute kidney injury Reason Critically Ill: 76-year-old female with acute hypoxic respiratory failure secondary to large recurrent RIGHT pleural effusion requiring Thal-Quick Neuro - * CAM ICU: NEGATIVE * History of Depression/Anxiety . * Remeron discontinued. More alert this AM. Cardiac - * Hypotension - continue Midodrine while requiring dialysis. * Increased Midodrine to 10 mg - can titrate up as needed for hypotension and persistently low MAP. * Orthostasis - to be reassessed after HD. * Loculated Pericardial Effusion - likely chronic. * EKGs for any c/o Chest Pain. * Monitor on Telemetry. Respiratory - * Acute Hypoxic Respiratory Failure Secondary to Compressive Atelectasis from Impressive Recurrent RIGHT Pleural Effusion: * Emergent Thal-Quick placed in ICU with moderate output and resolve of pleural effusion. * Small RIGHT Apical Pneumothorax s/p Thal-Quick Placement: * AM CXR shows persistence without progression. Will continue to monitor daily. * Discontinued suction - Will continue to keep clamped today. Did note some mild reaccumulation of pleural fluid. Will continue to monitor. * Aspiration Pneumonia. * Finished 7 day course of IV Zosyn. * Started on second 7 day course yesterday in setting of new respiratory distress. Will complete this course. * Procalcitonin trending down. * Supplemental O2 as needed. * Wean as tolerated. * Continue to monitor pulse oximetry. * Appreciate Pulmonary Consultation. * Not felt to be a good candidate at this point for PleuX catheter 2/2 likelihood of Hepatic Hydrothroax. Will continue to monitor for reaccumulation while clamped. Will appreciate continued guidance from a pulmonary standpoint. GI - * MORRISON w/ Hepatic Insufficiency. * Scant ascites. 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 * Portal Hypertension with Esophageal Varices: * Per patient - has never had GI Bleeding. Did have banding x1 performed prophylactically. Was to have f/u appointment, but was hospitalized. * Will monitor for any bleeding. * GERD * Continue PO Protonix * Appreciated GI Consult 2/2 improvement of pulmonary and nephro status. Patient has been optimized from this standpoint. Concern is for continued reaccumulation of pleural fluid in the setting of Hepatic Hydrothorax despite maximization of therapy in the acute phase of Hepatorenal Syndrome. Will defer to GI for continued guidance in the setting. RENAL/LYTES - * ROSANGELA on Chronic Kidney Disease IV: * Progressed to need for HD - continue per Nephro recommendations. * Hyperkalemia - HD managed. * Hyperphosphatemia - improved today. * Appreciated Nephrology guidance. * Monitor Lytes daily. - * No Clark - Aneuric. ENDO - * History of T2DM: * ISS for goal BSGs. HEME - * Chronic Anemia in the setting of CKD. * Continue Iron supplementation. * Epogen per Nephro. * Improving leukocytosis. Will monitor in the setting of concerns for possible aspirations pneumonia. ID - * Aspiration Pneumonia: * Finished 7 day course of Zosyn. * Restarted yesterday in setting of Acute Respiratory Failure. Will complete 7 day course. * Procalcitonin improving. Continue antibiotic course. * Monitor fever curve. LINES/IV ACCESS - * PIVs intact. * RIGHT IJ Permcath in place. * RIGHT Thal-Quick in place. DVT PROPHYLAXIS - * Heparin 5,000 U sq BID. At this point, the patient can be downgraded from the ICU. I have personally spent 35 minutes of critical care time in the direct management of this patient. This is a life/limb threatening event. This includes time spent evaluating patient, direct bedside care, chart review, placing orders, interpretation of diagnostic studies, discussion with consultants, patient, and family members, as well as other required patient management activities. This time is exclusive of all separately billable procedures, and teaching time and separate from and in addition to any other critical care service time. Thank you for this consultation allow us to be part of this patient's care. Please refer to my attending physician's documentation for any further recommendations. Attending Physician Supervision Note: I was present with Maninder Hull PA-C during the history and exam. I discussed the case with him and agree with the findings and plan as documented in the note. Any exceptions or clarifications are listed here: Patient with respiratory failure secondary to transudative right pleural effusion. Improved after chest tube placement. The etiology is a mix of liver disease and renal disease, but quite concerning for hepatic hydrothorax. Had significant output for the first three days, so yesterday the chest tube was clamped Continue to monitor radiographically and symptomatically. Hopefully she will not reaccumulate to the same degree There is a small right apical pneumothorax, which remains stable. No air leak in the chest tube. No need for further intervention, there may a small component of lung entrapment. Keep chest tube in for the time being Hopefully dialysis initiation will help to some extent If she continues to reaccumulate massively, then she may require TIPS procedure GI follow up appreciated Increased Midodrine yesterday, HD stable. BP borderline, but expected in a cirrhotic. Continue hemodialysis as scheduled, had another session today Finish course of Zosyn. OOB to chair Physical therapy DVT prophylaxis - SC heparin May be transferred to a monitored bed from a critical care standpoint. Documented By: Everette Pandya MD Critical care time spent greater than 25 minutes Consults & Procedures Consultants: GI - Marnie Nephrology - Dr. Pacheco Pulm - Dr. Phoenix Procedures: RIGHT IJ Permcath in place Data Medications: Current Inpatient Medications Medications (Trade) Dose Ordered Sig/Edilson Route Start Time Stop Time Status Last Admin Dose Admin Albuterol (Ventolin Hfa Inhaler) 2 puffs Q4 PRN INH 11/12/16 22:00 12/12/16 21:59 Atorvastatin Calcium (Lipitor Tab) 10 mg HS PO 11/13/16 21:00 12/13/16 20:59 12/04/16 21:32 10 MG Cholestyramine Resin (Questran Powder Light) 4 gm BID@, PO 11/12/16 22:00 12/12/16 21:59 12/04/16 21:32 4 GM Ondansetron HCl (Zofran Tab) 4 mg Q6H PRN PO 11/12/16 22:00 12/12/16 21:59 12/04/16 18:49 4 MG Pantoprazole Sodium (Protonix Tab) 40 mg DAILY PO 11/13/16 09:00 12/13/16 08:59 12/05/16 08:02 40 MG Buspirone HCl (Buspar Tab) 10 mg TID PO 11/13/16 09:00 12/13/16 08:59 12/05/16 08:00 10 MG Loperamide HCl (Imodium Cap) 2 mg Q12H PRN PO 11/12/16 22:00 12/12/16 21:59 12/04/16 08:44 2 MG Glucose (Glucose 40% Gel) 15-30 GRAMS 15 GRAMS... UD PRN PO 11/17/16 12:45 12/17/16 12:44 Glucose (Glucose Chew Tab) 4-8 Tablets 4 Tabl... UD PRN PO 11/17/16 12:45 12/17/16 12:44 Dextrose (Dextrose 50% 50ML Syringe) 25-50ML OF 50% DW IV FOR... UD PRN IV 11/17/16 12:45 12/17/16 12:44 Glucagon (Glucagon Inj) 1 mg UD PRN SQ 11/17/16 12:45 12/17/16 12:44 Polyethylene (Miralax Powder Packet) 17 gm DAILY PRN PO 11/17/16 12:45 12/17/16 12:44 Docusate Sodium (coLACE CAP) 100 mg BID PO 11/17/16 21:00 12/17/16 20:59 12/03/16 21:01 100 MG Al Hydroxide/Mg Hydroxide (Maalox Susp) 15 ml Q4H PRN PO 11/21/16 21:45 12/21/16 21:44 12/04/16 02:37 15 ML Miscellaneous Information (Consult Glycemic Management Pharmacy) 1 ea UD PRN N/A 11/23/16 09:47 12/23/16 09:46 Enteral Nutritional Formula (Boost Glucose Control) 0.5 can ACHS PO 11/23/16 11:00 12/23/16 10:59 12/04/16 21:32 0.5 CAN Insulin Aspart (novoLOG ASPART) SLIDING SCALE ACHS SC 11/24/16 21:00 12/24/16 20:59 12/04/16 21:31 2 UNITS Benzonatate (Tessalon Perles Cap) 100 mg TID PRN PO 11/24/16 15:00 12/24/16 14:59 11/27/16 20:58 100 MG Oxymetazoline HCl (Afrin 0.05% Nasal [place]) 1 sprays Q6H PRN NA 11/25/16 11:00 12/25/16 10:59 Morphine Sulfate (MoRPHine SULFATE INJ) 3 mg Q3HWA PRN IV 11/27/16 11:45 12/11/16 11:44 12/02/16 14:29 3 MG Oxycodone/ Acetaminophen (Percocet 5-325mg Tab) 1 tab Q4H PRN PO 12/01/16 13:30 12/15/16 13:29 Piperacillin Sod/ Tazobactam Sod (Consult) 1 ea UD PRN N/A 12/02/16 08:00 01/01/17 07:59 Piperacillin Sod/ Tazobactam Sod 3.375 gm/Dextrose 115 ml @ 28.75 mls/ hr Q12@0400,1600 IV 12/02/16 16:00 12/09/16 15:59 12/05/16 03:48 28.75 MLS/HR Propranolol HCl (Inderal Tab) 10 mg TID PO 12/02/16 14:00 01/01/17 13:59 12/04/16 14:00 10 MG Ascorbic Acid (Vitamin C Tab) 500 mg QAM PO 12/03/16 09:00 01/02/17 08:59 12/05/16 08:01 500 MG Zinc Sulfate (Zinc Sulfate Cap) 220 mg QAM PO 12/03/16 09:00 01/02/17 08:59 12/05/16 08:00 220 MG Albuterol/ Ipratropium (Duoneb) 3 ml Q4R PRN INH 12/03/16 08:45 01/02/17 08:44 Heparin Sodium (Porcine) (Heparin Sq 5000 Unit/0.5ml) 5,000 unit Q12 SQ 12/03/16 21:00 01/03/17 20:59 12/04/16 21:31 5,000 UNIT Midodrine (Proamatine Tab) 7.5 mg TID@08,,17 PO 12/04/16 08:00 12/29/16 07:59 12/05/16 08:01 7.5 MG Mirtazapine (Remeron Tab) 7.5 mg HS PO 12/04/16 21:00 12/13/16 20:59 12/04/16 21:32 7.5 MG Ferrous Sulfate (Feosol Tab) 325 mg TIDM PO 12/04/16 11:30 01/03/17 11:29 12/05/16 08:01 325 MG Insulin Glargine (Lantus Solostar Pen) SEE PROTOCOL BID SC 12/04/16 21:00 01/03/17 20:59 12/04/16 21:29 16 UNITS Heparin Sodium (Porcine) (No Heparin In Dialysis) 1 ea 0730 N/A 12/05/16 07:30 12/05/16 11:30 Albumin Human (Albumin 25%) 12.5 gm 0730,0900 IV 12/05/16 07:30 12/05/16 09:01 Epoetin Samm 17033 units/ Syringe 0.6 ml @ 1 mls/min 0730 IV. 12/05/16 07:30 12/05/16 11:30 Vital Signs: Date Time Temp Pulse Resp B/P (MAP) Pulse Ox O2 Delivery O2 Flow Rate FiO2 12/05/16 06:00 61 16 85/42 (55) 97 12/05/16 05:00 60 18 80/35 (53) 96 12/05/16 04:01 68 29 85/46 (71) 96 12/05/16 04:00 97 Nasal Cannula 2.0 12/05/16 04:00 36.9 12/05/16 03:01 60 25 81/36 (56) 96 12/05/16 02:00 62 14 77/28 (50) 97 12/05/16 01:00 61 21 74/26 (49) 98 12/05/16 00:24 65 17 81/31 (42) 98 12/05/16 00:01 36.9 12/04/16 23:59 100 Nasal Cannula 2.0 12/04/16 23:00 62 18 86/31 (42) 98 12/04/16 22:00 68 17 87/32 (51) 97 12/04/16 21:00 71 18 96/35 (52) 91 12/04/16 20:01 71 24 107/35 (71) 94 12/04/16 20:00 37.8 12/04/16 20:00 93 Room Air 12/04/16 19:00 69 25 97/36 (58) 91 12/04/16 18:00 69 23 100/35 (56) 93 12/04/16 16:00 92 Room Air 12/04/16 16:00 36.6 75 18 106/44 (64) 95 Room Air 12/04/16 13:08 36.6 63 99/33 (55) 12/04/16 12:43 62 105/40 12/04/16 12:15 62 87/41 12/04/16 12:01 36.9 69 20 97/53 (68) 91 Room Air 12/04/16 12:00 97 Room Air 12/04/16 12:00 60 97/53 12/04/16 12:00 69 25 91 12/04/16 11:45 68 96/56 12/04/16 11:30 68 89/35 12/04/16 11:15 60 97/39 8/22/17 11:00 61 86/45 12/04/16 10:45 68 98/42 12/04/16 10:30 68 98/49 12/04/16 10:25 36.5 66 88/36 (53) 12/04/16 10:15 67 17 99/39 (59) 94 Room Air 12/04/16 10:12 65 99/39 12/04/16 10:00 69 24 77/52 (60) 94 Room Air Laboratory Results: Last 24 Hours Test 12/04/16 12:47 12/04/16 14:16 12/04/16 16:46 12/04/16 21:25 Phosphorus Level 1.9 mg/dl Magnesium Level 1.9 mg/dl Total Bilirubin 2.4 mg/dl Direct Bilirubin 1.3 mg/dl Aspartate Amino Transf (AST/SGOT) 104 U/L Alanine Aminotransferase (ALT/SGPT) 38 U/L Alkaline Phosphatase 262 U/L Total Protein 7.6 gm/dl Albumin 3.1 gm/dl Bedside Glucose 147 mg/dl 160 mg/dl 189 mg/dl Test 12/05/16 05:14 12/05/16 06:17 White Blood Count 16.35 K/uL Red Blood Count 2.65 M/uL Hemoglobin 8.0 g/dL Hematocrit 24.8 % Mean Corpuscular Volume 93.6 fL Mean Corpuscular Hemoglobin 30.2 pg Mean Corpuscular Hemoglobin Concent 32.3 g/dl RDW Standard Deviation 80.4 fL RDW Coefficient of Variation 23.6 % Platelet Count 90 K/uL Mean Platelet Volume 11.8 fL Platelet Estimate DECREASED Sodium Level 139 mmol/L Potassium Level 3.6 mmol/L Chloride Level 103 mmol/L Carbon Dioxide Level 26 mmol/L Anion Gap 10.0 mmol/L Blood Urea Nitrogen 24 mg/dl Creatinine 3.30 mg/dl Est Creatinine Clear Calc Drug Dose 12.5 ml/min Estimated GFR () 15.0 Estimated GFR (Non- 12.9 BUN/Creatinine Ratio 7.2 Random Glucose 134 mg/dl Calcium Level 7.5 mg/dl Phosphorus Level 4.1 mg/dl Magnesium Level 1.8 mg/dl Total Bilirubin 1.5 mg/dl Aspartate Amino Transf (AST/SGOT) 77 U/L Alanine Aminotransferase (ALT/SGPT) 28 U/L Alkaline Phosphatase 197 U/L Total Protein 5.3 gm/dl Albumin 1.9 gm/dl Globulin 3.4 gm/dl Albumin/Globulin Ratio 0.6 Procalcitonin 1.39 ng/ml Bedside Glucose 139 mg/dl Problem Qualifiers (1) DM type 2 (diabetes mellitus, type 2): Diabetes mellitus complication status: with unspecified complications Diabetes mellitus terminal operations supervisor insulin use: without shelter use Qualified Codes : E11.8 - Type 2 diabetes mellitus with unspecified complications (2) Varices, esophageal: Esophageal varices type: unspecified type
[2016-12-05] MEDS: HEPARIN SOD 5000 UNIT/0.5 ML CARP SQ SCH ×2 (09:09→21:11)
[2016-12-05] MEDS: CHOLESTYRAMINE LIGHT 4 GM PKT PO SCH ×2 (09:11→21:41)
--- NOTE | 2016-12-05 09:37 | Progress Note ---
Medicine Progress Note Date & Time of Visit: Dec 05, 2016 at 07:40 . Subjective Got some rest last night. BP's as low as 74 systolic while sleeping. No fever. No chest pain. No cough or SOB. No nausea, vomiting, diarrhea. . Objective Last 8 Hrs Date Time Temp Pulse Resp B/P (MAP) Pulse Ox O2 Delivery O2 Flow Rate FiO2 12/05/16 08:55 36.8 62 85/40 (55) 12/05/16 06:00 61 16 85/42 (55) 97 12/05/16 05:00 60 18 80/35 (53) 96 12/05/16 04:01 68 29 85/46 (71) 96 12/05/16 04:00 97 Nasal Cannula 2.0 12/05/16 04:00 36.9 12/05/16 03:01 60 25 81/36 (56) 96 12/05/16 02:00 62 14 77/28 (50) 97 Physical Exam: General- no distress Lungs- rales right base Heart- regular Thorax- right chest tube Abdomen- distended, + BS, soft, nontender Extremities- SCD's applied; 2+ pretibial edema; no calf tenderness Neuro- alert . Laboratory Results: Last 24 Hours Test 12/04/16 12:47 12/04/16 14:16 12/04/16 16:46 12/04/16 21:25 Phosphorus Level 1.9 mg/dl Magnesium Level 1.9 mg/dl Total Bilirubin 2.4 mg/dl Direct Bilirubin 1.3 mg/dl Aspartate Amino Transf (AST/SGOT) 104 U/L Alanine Aminotransferase (ALT/SGPT) 38 U/L Alkaline Phosphatase 262 U/L Total Protein 7.6 gm/dl Albumin 3.1 gm/dl Bedside Glucose 147 mg/dl 160 mg/dl 189 mg/dl Test 12/05/16 05:14 12/05/16 06:17 White Blood Count 16.35 K/uL Red Blood Count 2.65 M/uL Hemoglobin 8.0 g/dL Hematocrit 24.8 % Mean Corpuscular Volume 93.6 fL Mean Corpuscular Hemoglobin 30.2 pg Mean Corpuscular Hemoglobin Concent 32.3 g/dl RDW Standard Deviation 80.4 fL RDW Coefficient of Variation 23.6 % Platelet Count 90 K/uL Mean Platelet Volume 11.8 fL Platelet Estimate DECREASED Sodium Level 139 mmol/L Potassium Level 3.6 mmol/L Chloride Level 103 mmol/L Carbon Dioxide Level 26 mmol/L Anion Gap 10.0 mmol/L Blood Urea Nitrogen 24 mg/dl Creatinine 3.30 mg/dl Est Creatinine Clear Calc Drug Dose 12.5 ml/min Estimated GFR () 15.0 Estimated GFR (Non- 12.9 BUN/Creatinine Ratio 7.2 Random Glucose 134 mg/dl Calcium Level 7.5 mg/dl Phosphorus Level 4.1 mg/dl Magnesium Level 1.8 mg/dl Total Bilirubin 1.5 mg/dl Aspartate Amino Transf (AST/SGOT) 77 U/L Alanine Aminotransferase (ALT/SGPT) 28 U/L Alkaline Phosphatase 197 U/L Total Protein 5.3 gm/dl Albumin 1.9 gm/dl Globulin 3.4 gm/dl Albumin/Globulin Ratio 0.6 Procalcitonin 1.39 ng/ml Bedside Glucose 139 mg/dl Assessment & Plan ACUTE HYPOXIC RESPIRATORY FAILURE Secondary to large right pleural effusion. Pleural effusion most likely secondary to underlying ascites. Chest tube placed with improvement. Management per Pulmonary Medicine. ACUTE KIDNEY INJURY / CKD IV CKD IV. Creatinine in ED 2.5, compared to 1.9 on 10/29/16. Underlying cirrhosis on diuretic therapy. Nephrology consulted. Creatinine worsened and hemodialysis initiated. Ongoing management per Nephrology. ELEVATED TROPONIN No associated chest pain. EKG shows nonspecific T-wave changes. Serum troponin as high as 4.050. Total CPKs repeatedly normal; CPK-MB's essentially normal. Echocardiogram on 11/13/16 did not show any wall motion abnormalities. Elevated troponin probably nonspecific, perhaps related to fall. ASPIRATION PNEUMONIA Treated with course of piperacillin / tazobactam. 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 Associated portal hypertension, esophageal varices, ascites. Management per GI. LARGE HIATAL HERNIA Evaluated in past by Thoracic Surgery. Surgical intervention not advised due to comorbidities. Elevated head of bed. Upright when eating / drinking. Continue PPI. ANOREXIA / MALNUTRITION Probably multifactorial- hiatal hernia, GERD, cirrhosis, meds, dentition. Nutrition consulted for recommendations. Changed anti-depressant from fluoxetine to mirtazapine. HISTORY HYPERTENSION / HYPOTENSION Recent blood pressures running low. Amlodipine discontinued. Receiving midodrine. May need to stop or reduce propranolol. Continue midodrine. Watch volume status. Fall precautions. DM TYPE 2 Usually diet-controlled. Random blood sugar in ED 144. Hgb A1C 6.7 on 09/06/16. Fasting blood sugar this morning = 139. ANXIETY / DEPRESSION On fluoxetine at time of admission that may be contributing to anorexia. Switched from fluoxetine to mirtazapine; dose reduced to 7.5 mg HS. Continue buspirone. DVT PROPHYLAXIS Moderately high risk for DVT. SQ heparin. Ambulate as able. GENERAL DEBILITATION Multifactorial. PT / OT evals. ADVANCED DIRECTIVES / RESUSCITATION STATUS Multiple chronic and acute medical concerns. Full resuscitation per recent discussions. Palliative Care consultation requested. DISPOSITION Discharge disposition to be determined. May need skilled care or inpatient rehab. Case Management consulted. Family Medicine follow-up with Dr. Sepulveda. . Consultants: Nephrology Current Inpatient Medications: Current Inpatient Medications Medications (Trade) Dose Ordered Sig/Edilson Route Start Time Stop Time Status Last Admin Dose Admin Albuterol (Ventolin Hfa Inhaler) 2 puffs Q4 PRN INH 11/12/16 22:00 12/12/16 21:59 Atorvastatin Calcium (Lipitor Tab) 10 mg HS PO 11/13/16 21:00 12/13/16 20:59 12/04/16 21:32 10 MG Cholestyramine Resin (Questran Powder Light) 4 gm BID@ PO 11/12/16 22:00 12/12/16 21:59 12/05/16 09:11 4 GM Ondansetron HCl (Zofran Tab) 4 mg Q6H PRN PO 11/12/16 22:00 12/12/16 21:59 12/04/16 18:49 4 MG Pantoprazole Sodium (Protonix Tab) 40 mg DAILY PO 11/13/16 09:00 12/13/16 08:59 12/05/16 08:02 40 MG Buspirone HCl (Buspar Tab) 10 mg TID PO 11/13/16 09:00 12/13/16 08:59 12/05/16 08:00 10 MG Loperamide HCl (Imodium Cap) 2 mg Q12H PRN PO 11/12/16 22:00 12/12/16 21:59 12/04/16 08:44 2 MG Glucose (Glucose 40% Gel) 15-30 GRAMS 15 GRAMS... UD PRN PO 11/17/16 12:45 12/17/16 12:44 Glucose (Glucose Chew Tab) 4-8 Tablets 4 Tabl... UD PRN PO 11/17/16 12:45 12/17/16 12:44 Dextrose (Dextrose 50% 50ML Syringe) 25-50ML OF 50% DW IV FOR... UD PRN IV 11/17/16 12:45 12/17/16 12:44 Glucagon (Glucagon Inj) 1 mg UD PRN SQ 11/17/16 12:45 12/17/16 12:44 Polyethylene (Miralax Powder Packet) 17 gm DAILY PRN PO 11/17/16 12:45 12/17/16 12:44 Docusate Sodium (coLACE CAP) 100 mg BID PO 11/17/16 21:00 12/17/16 20:59 12/03/16 21:01 100 MG Al Hydroxide/Mg Hydroxide (Maalox Susp) 15 ml Q4H PRN PO 11/21/16 21:45 12/21/16 21:44 12/04/16 02:37 15 ML Miscellaneous Information (Consult Glycemic Management Pharmacy) 1 ea UD PRN N/A 11/23/16 09:47 12/23/16 09:46 Enteral Nutritional Formula (Boost Glucose Control) 0.5 can ACHS PO 11/23/16 11:00 12/23/16 10:59 12/05/16 08:00 0.5 CAN Insulin Aspart (novoLOG ASPART) SLIDING SCALE ACHS SC 11/24/16 21:00 12/24/16 20:59 12/05/16 09:03 3 UNITS Benzonatate (Tessalon Perles Cap) 100 mg TID PRN PO 11/24/16 15:00 12/24/16 14:59 11/27/16 20:58 100 MG Oxymetazoline HCl (Afrin 0.05% Nasal [place]) 1 sprays Q6H PRN NA 11/25/16 11:00 12/25/16 10:59 Morphine Sulfate (MoRPHine SULFATE INJ) 3 mg Q3HWA PRN IV 11/27/16 11:45 12/11/16 11:44 12/02/16 14:29 3 MG Oxycodone/ Acetaminophen (Percocet 5-325mg Tab) 1 tab Q4H PRN PO 12/01/16 13:30 12/15/16 13:29 Piperacillin Sod/ Tazobactam Sod (Consult) 1 ea UD PRN N/A 12/02/16 08:00 01/01/17 07:59 Piperacillin Sod/ Tazobactam Sod 3.375 gm/Dextrose 115 ml @ 28.75 mls/ hr Q12@0400,1600 IV 12/02/16 16:00 12/09/16 15:59 12/05/16 03:48 28.75 MLS/HR Propranolol HCl (Inderal Tab) 10 mg TID PO 12/02/16 14:00 01/01/17 13:59 12/04/16 14:00 10 MG Ascorbic Acid (Vitamin C Tab) 500 mg QAM PO 12/03/16 09:00 01/02/17 08:59 12/05/16 08:01 500 MG Zinc Sulfate (Zinc Sulfate Cap) 220 mg QAM PO 12/03/16 09:00 01/02/17 08:59 12/05/16 08:00 220 MG Albuterol/ Ipratropium (Duoneb) 3 ml Q4R PRN INH 12/03/16 08:45 01/02/17 08:44 Heparin Sodium (Porcine) (Heparin Sq 5000 Unit/0.5ml) 5,000 unit Q12 SQ 12/03/16 21:00 01/03/17 20:59 12/05/16 09:09 5,000 UNIT Midodrine (Proamatine Tab) 7.5 mg TID@08,,17 PO 12/04/16 08:00 12/29/16 07:59 12/05/16 08:01 7.5 MG Mirtazapine (Remeron Tab) 7.5 mg HS PO 12/04/16 21:00 12/13/16 20:59 12/04/16 21:32 7.5 MG Ferrous Sulfate (Feosol Tab) 325 mg TIDM PO 12/04/16 11:30 01/03/17 11:29 12/05/16 08:01 325 MG Insulin Glargine (Lantus Solostar Pen) SEE PROTOCOL BID SC 12/04/16 21:00 01/03/17 20:59 12/05/16 09:05 12 UNITS Heparin Sodium (Porcine) (No Heparin In Dialysis) 1 ea 0730 N/A 12/05/16 07:30 12/05/16 11:30 Epoetin Samm 50971 units/ Syringe 0.6 ml @ 1 mls/min 0730 IV. 12/05/16 07:30 12/05/16 11:30
--- NOTE | 2016-12-05 09:44 | Nephrology Progress Note ---
Nephrology Progress Note Date of Service: Dec 05, 2016. Subjective CT w/ ongoing large output; despite clamping still put out 1200 yesterday; also had 1700 mL uf yesterday; tolerated HD; back on 02NC and denies dypsnea; still swollen; less N; more appetite ( a bit); still very weak Objective Date Time Temp Pulse Resp B/P (MAP) Pulse Ox O2 Delivery O2 Flow Rate FiO2 12/05/16 09:30 57 70/27 12/05/16 09:15 60 94/42 12/05/16 08:55 36.8 62 85/40 (55) 12/05/16 06:00 61 16 85/42 (55) 97 12/05/16 05:00 60 18 80/35 (53) 96 12/05/16 04:01 68 29 85/46 (71) 96 12/05/16 04:00 97 Nasal Cannula 2.0 12/05/16 04:00 36.9 12/05/16 03:01 60 25 81/36 (56) 96 12/05/16 02:00 62 14 77/28 (50) 97 12/05/16 01:00 61 21 74/26 (49) 98 12/05/16 00:24 65 17 81/31 (42) 98 12/05/16 00:01 36.9 12/04/16 23:59 100 Nasal Cannula 2.0 12/04/16 23:00 62 18 86/31 (42) 98 12/04/16 22:00 68 17 87/32 (51) 97 12/04/16 21:00 71 18 96/35 (52) 91 12/04/16 20:01 71 24 107/35 (71) 94 12/04/16 20:00 37.8 12/04/16 20:00 93 Room Air 12/04/16 19:00 69 25 97/36 (58) 91 12/04/16 18:00 69 23 100/35 (56) 93 12/04/16 16:00 92 Room Air 12/04/16 16:00 36.6 75 18 106/44 (64) 95 Room Air 12/04/16 13:08 36.6 63 99/33 (55) 12/04/16 12:43 62 105/40 12/04/16 12:15 62 87/41 12/04/16 12:01 36.9 69 20 97/53 (68) 91 Room Air 12/04/16 12:00 97 Room Air 12/04/16 12:00 60 97/53 12/04/16 12:00 69 25 91 12/04/16 11:45 68 96/56 12/04/16 11:30 68 89/35 12/04/16 11:15 60 97/39 12/04/16 11:00 61 86/45 12/04/16 10:45 68 98/42 12/04/16 10:30 68 98/49 12/04/16 10:25 36.5 66 88/36 (53) 12/04/16 10:15 67 17 99/39 (59) 94 Room Air 12/04/16 10:12 65 99/39 12/04/16 10:00 69 24 77/52 (60) 94 Room Air Physical Exam: General-on 02NC, today less sob w/ speech; nad, a& O x 3 but tired >> had sat up to eat breakfast and listing backwards b/c tired/weak Eyes-eomi ENT-dry mm Neck-supple Lungs-very diminished, CT R Heart-RRR; 3+ BL to hips edema Abdomen-soft NT + bs, no garcia Extremities-no c/c Neuro-mendes, fluent speech Current Inpatient Medications Medications (Trade) Dose Ordered Sig/Edilson Route Start Time Stop Time Status Last Admin Dose Admin Albuterol (Ventolin Hfa Inhaler) 2 puffs Q4 PRN INH 11/12/16 22:00 12/12/16 21:59 Atorvastatin Calcium (Lipitor Tab) 10 mg HS PO 11/13/16 21:00 12/13/16 20:59 12/04/16 21:32 10 MG Cholestyramine Resin (Questran Powder Light) 4 gm BID@, PO 11/12/16 22:00 12/12/16 21:59 12/05/16 09:11 4 GM Ondansetron HCl (Zofran Tab) 4 mg Q6H PRN PO 11/12/16 22:00 12/12/16 21:59 12/04/16 18:49 4 MG Pantoprazole Sodium (Protonix Tab) 40 mg DAILY PO 11/13/16 09:00 12/13/16 08:59 12/05/16 08:02 40 MG Buspirone HCl (Buspar Tab) 10 mg TID PO 11/13/16 09:00 12/13/16 08:59 12/05/16 08:00 10 MG Loperamide HCl (Imodium Cap) 2 mg Q12H PRN PO 11/12/16 22:00 12/12/16 21:59 12/04/16 08:44 2 MG Glucose (Glucose 40% Gel) 15-30 GRAMS 15 GRAMS... UD PRN PO 11/17/16 12:45 12/17/16 12:44 Glucose (Glucose Chew Tab) 4-8 Tablets 4 Tabl... UD PRN PO 11/17/16 12:45 12/17/16 12:44 Dextrose (Dextrose 50% 50ML Syringe) 25-50ML OF 50% DW IV FOR... UD PRN IV 11/17/16 12:45 12/17/16 12:44 Glucagon (Glucagon Inj) 1 mg UD PRN SQ 11/17/16 12:45 12/17/16 12:44 Polyethylene (Miralax Powder Packet) 17 gm DAILY PRN PO 11/17/16 12:45 12/17/16 12:44 Docusate Sodium (coLACE CAP) 100 mg BID PO 11/17/16 21:00 12/17/16 20:59 12/03/16 21:01 100 MG Al Hydroxide/Mg Hydroxide (Maalox Susp) 15 ml Q4H PRN PO 11/21/16 21:45 12/21/16 21:44 12/04/16 02:37 15 ML Miscellaneous Information (Consult Glycemic Management Pharmacy) 1 ea UD PRN N/A 11/23/16 09:47 12/23/16 09:46 Enteral Nutritional Formula (Boost Glucose Control) 0.5 can ACHS PO 11/23/16 11:00 12/23/16 10:59 12/05/16 08:00 0.5 CAN Insulin Aspart (novoLOG ASPART) SLIDING SCALE ACHS SC 11/24/16 21:00 12/24/16 20:59 12/05/16 09:03 3 UNITS Benzonatate (Tessalon Perles Cap) 100 mg TID PRN PO 11/24/16 15:00 12/24/16 14:59 11/27/16 20:58 100 MG Oxymetazoline HCl (Afrin 0.05% Nasal [place]avin[place]) 1 sprays Q6H PRN NA 11/25/16 11:00 12/25/16 10:59 Morphine Sulfate (MoRPHine SULFATE INJ) 3 mg Q3HWA PRN IV 11/27/16 11:45 12/11/16 11:44 12/02/16 14:29 3 MG Oxycodone/ Acetaminophen (Percocet 5-325mg Tab) 1 tab Q4H PRN PO 12/01/16 13:30 12/15/16 13:29 Piperacillin Sod/ Tazobactam Sod (Consult) 1 ea UD PRN N/A 12/02/16 08:00 01/01/17 07:59 Piperacillin Sod/ Tazobactam Sod 3.375 gm/Dextrose 115 ml @ 28.75 mls/ hr Q12@0400,1600 IV 12/02/16 16:00 12/09/16 15:59 12/05/16 03:48 28.75 MLS/HR Propranolol HCl (Inderal Tab) 10 mg TID PO 12/02/16 14:00 01/01/17 13:59 12/04/16 14:00 10 MG Ascorbic Acid (Vitamin C Tab) 500 mg QAM PO 12/03/16 09:00 01/02/17 08:59 12/05/16 08:01 500 MG Zinc Sulfate (Zinc Sulfate Cap) 220 mg QAM PO 12/03/16 09:00 01/02/17 08:59 12/05/16 08:00 220 MG Albuterol/ Ipratropium (Duoneb) 3 ml Q4R PRN INH 12/03/16 08:45 01/02/17 08:44 Heparin Sodium (Porcine) (Heparin Sq 5000 Unit/0.5ml) 5,000 unit Q12 SQ 12/03/16 21:00 01/03/17 20:59 12/05/16 09:09 5,000 UNIT Midodrine (Proamatine Tab) 7.5 mg TID@08,,17 PO 12/04/16 08:00 12/29/16 07:59 12/05/16 08:01 7.5 MG Mirtazapine (Remeron Tab) 7.5 mg HS PO 12/04/16 21:00 12/13/16 20:59 12/04/16 21:32 7.5 MG Ferrous Sulfate (Feosol Tab) 325 mg TIDM PO 12/04/16 11:30 01/03/17 11:29 12/05/16 08:01 325 MG Insulin Glargine (Lantus Solostar Pen) SEE PROTOCOL BID SC 12/04/16 21:00 01/03/17 20:59 12/05/16 09:05 12 UNITS Heparin Sodium (Porcine) (No Heparin In Dialysis) 1 ea 0730 N/A 12/05/16 07:30 12/05/16 11:30 Epoetin Samm 33373 units/ Syringe 0.6 ml @ 1 mls/min 0730 IV. 12/05/16 07:30 12/05/16 11:30 Last 24 Hours Test 12/04/16 12:47 12/04/16 14:16 12/04/16 16:46 12/04/16 21:25 Phosphorus Level 1.9 mg/dl Magnesium Level 1.9 mg/dl Total Bilirubin 2.4 mg/dl Direct Bilirubin 1.3 mg/dl Aspartate Amino Transf (AST/SGOT) 104 U/L Alanine Aminotransferase (ALT/SGPT) 38 U/L Alkaline Phosphatase 262 U/L Total Protein 7.6 gm/dl Albumin 3.1 gm/dl Bedside Glucose 147 mg/dl 160 mg/dl 189 mg/dl Test 12/05/16 05:14 12/05/16 06:17 White Blood Count 16.35 K/uL Red Blood Count 2.65 M/uL Hemoglobin 8.0 g/dL Hematocrit 24.8 % Mean Corpuscular Volume 93.6 fL Mean Corpuscular Hemoglobin 30.2 pg Mean Corpuscular Hemoglobin Concent 32.3 g/dl RDW Standard Deviation 80.4 fL RDW Coefficient of Variation 23.6 % Platelet Count 90 K/uL Mean Platelet Volume 11.8 fL Platelet Estimate DECREASED Sodium Level 139 mmol/L Potassium Level 3.6 mmol/L Chloride Level 103 mmol/L Carbon Dioxide Level 26 mmol/L Anion Gap 10.0 mmol/L Blood Urea Nitrogen 24 mg/dl Creatinine 3.30 mg/dl Est Creatinine Clear Calc Drug Dose 12.5 ml/min Estimated GFR () 15.0 Estimated GFR (Non- 12.9 BUN/Creatinine Ratio 7.2 Random Glucose 134 mg/dl Calcium Level 7.5 mg/dl Phosphorus Level 4.1 mg/dl Magnesium Level 1.8 mg/dl Total Bilirubin 1.5 mg/dl Aspartate Amino Transf (AST/SGOT) 77 U/L Alanine Aminotransferase (ALT/SGPT) 28 U/L Alkaline Phosphatase 197 U/L Total Protein 5.3 gm/dl Albumin 1.9 gm/dl Globulin 3.4 gm/dl Albumin/Globulin Ratio 0.6 Procalcitonin 1.39 ng/ml Bedside Glucose 139 mg/dl Assessment & Plan 76 yo female with arturo on ckd 4/5 in setting of cirrhosis with aspiration pneumonia. started on midodrine 11/29 to help with bp while removing fluid. on had acute hypoxic respiratory failure and moved to ICU > got C Tube on R. arturo on ckd 4 w/ liver cirrhosis -getting daily dialysis with gentle fluid removal. on midodrine to help with bp while removing fluid. plan on dialysis again tomorrow. Started HD 11/27; presumed anuric (incontinent) since 12/01. getting near daily HD to optimize fluid removal. for HD today; also plan again tomorrow and likely 12/07 d/t effusion/vol status as BP tolerates. 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 likely to be esrd Anemia-multifactorial. use Fe, procrit for goal of 10 to [address] effusion and w/ acute hypoxic respiratory failure -s/p 12/02 chest tube w/ 1.6L fluid removed immediately and ongoing large output Appreciate consult.
[2016-12-05] MEDS: MIDODRINE 10 MG TAB PO SCH ×2 (11:41→18:23)
[2016-12-05] MEDS: ONDANSETRON 4 MG TAB PO PRN (11:43)
--- NOTE | 2016-12-05 15:03 | Pharmacy Progress Note ---
Glycemic Control Progress Note Date of Service Dec 05, 2016. Scope Glycemic Pharmacist consulted for glycemic control to write orders per [facility] inpatient glycemic control protocol. Objective Accuchecks BSG (last 24hrs): Test 12/04/16 16:46 12/04/16 21:25 12/05/16 05:14 12/05/16 06:17 Bedside Glucose 160 mg/dl (70-90) 189 mg/dl (70-90) 139 mg/dl (70-90) Random Glucose 134 mg/dl (70-99) Test 12/05/16 11:28 Bedside Glucose 106 mg/dl (70-90) HbA1c: Test 11/18/16 06:40 Hemoglobin A1c 6.8 % (4.5-5.6) H Recent Pertinent Medications The patient is currently receiving: * Basal insulin: Lantus SQ BID; 12 units if BSG less than 140, 16 units if BSG 140 or greater * Correctional Insulin: Novolog Correction per scale ACHS Goal Range: Low 110 mg/dL - High 140 mg/dL Correction Factor: 30 mg/dL/unit * Prandial insulin: Per carb ratio of 1 unit per 10 grams CHO consumed * Oral Agents: none currently Assessment & Plan ASSESSMENT: 12/03/16 * Glycemic control has been quite good over the last 24 hrs, all BSGs at goal with the exception of HS BSG of 228 which may have been due to lack of carb coverage with dinner (patient may have had Boost w/ dinner). All other BSGs 115 -164 * Fasting BSG 141-164 this AM with 28 units basal insulin on board. Given low PO intake over the last few days and most BSGs yesterday 115-140, I am hesitant to increase the basal insulin dose at this time. A small dose increase may be tolerated well, however most BSGs at goal at this time. * Given low PO intake it is difficult to assess CR, but plan to continue the same for now and follow post-prandial BSGs 12/04/16 * BSGs have ranged 113-173 over the last 24 hrs * PO intake was poor yesterday however patient did consume 3 servings of Boost per eMAR * Fasting BSG 146-169 this AM with 28 units on Lantus on board - current dose should be reflective of steady-state; will titrate up today * Post-prandial BSGs well controlled yesterday however CR was not used despite patient consuming Boost supplements; will follow BSG trend today as CR was used with breakfast this AM 12/05/16 * BSGs have been well controlled over the last 24 hrs, BSGs have ranged 139- 189mg/dL * Patient has received 50 units of insulin over the last 24 hours * Planned to continue the current orders for another 24 hrs PLAN FOR INPATIENT GLYCEMIC CONTROL: * Continue Lantus SQ BID: 12 units if BSG less than 140, 16 units if BSG 140 or greater * Continue correction factor of 30 mg/dl/unit * Continuing carb ratio 1 unit per 10 grams CHO consumed * Continuing goal range Low 110 mg/dL - High 140 mg/dL RECOMMENDATIONS FOR DISCHARGE: * May resume dietary measures for control of diabetes on discharge unless patient still requiring insulin on day of discharge due to stress of infection * Please note that the plan above was derived based on current level of insulin resistance and hospital stress. These recommendations are appropriate for inpatient admission only. Plan of care upon discharge will need to be reassessed to avoid potential outpatient hypo/hyperglycemia. Thank you.
--- NOTE | 2016-12-05 15:56 | Pulmonology Progress Note ---
Pulmonary Progress Note Date of Service Dec 05, 2016. Attending Dr. Phoenxi Subjective Patient is always fatigued but notes stable overall respiratory status. Objective Patient able to complete full sentences and showing no signs of respiratory distress. She is able to lie flat with no signs of increased work of breathing. Gen.: Patient is alert and orientated 3 Respiratory: Decreased breath sounds right hemithorax Chest tube: Smallbore chest tube in place. There was a notable kink between the chest tube and the Pneumovax. I ended this mildly melt in approximately 900 cc of fluid came out within a 15 minute window. 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 This was on gravity not wall suction. We will keep the tube on water seal at this time we'll not clamp off and monitor the output over the next 24 hours. Overall this is very porcine for the patient's prognosis as continuation of drainage of the fluid will decreased intravascular fluid as well as protein levels and lead to renal insufficiency as well as malnourished state. I've spoken to the patient's primary team liter at this time Dr. Dickson and have suggested a full evaluation with the patient's family for end-of-life care be evaluated. If the patient's family is willing to move forward with the END of Life Care I will place an IPC at that time for palliative treatment of her shortness of breath. Data Medications: Current Inpatient Medications Medications (Trade) Dose Ordered Sig/Edilson Route Start Time Stop Time Status Last Admin Dose Admin Albuterol (Ventolin Hfa Inhaler) 2 puffs Q4 PRN INH 11/12/16 22:00 12/12/16 21:59 Atorvastatin Calcium (Lipitor Tab) 10 mg HS PO 11/13/16 21:00 12/13/16 20:59 12/04/16 21:32 10 MG Cholestyramine Resin (Questran Powder Light) 4 gm BID@ PO 11/12/16 22:00 12/12/16 21:59 12/05/16 09:11 4 GM Ondansetron HCl (Zofran Tab) 4 mg Q6H PRN PO 11/12/16 22:00 12/12/16 21:59 12/05/16 11:43 4 MG Pantoprazole Sodium (Protonix Tab) 40 mg DAILY PO 11/13/16 09:00 12/13/16 08:59 12/05/16 08:02 40 MG Buspirone HCl (Buspar Tab) 10 mg TID PO 11/13/16 09:00 12/13/16 08:59 12/05/16 13:42 10 MG Loperamide HCl (Imodium Cap) 2 mg Q12H PRN PO 11/12/16 22:00 12/12/16 21:59 12/04/16 08:44 2 MG Glucose (Glucose 40% Gel) 15-30 GRAMS 15 GRAMS... UD PRN PO 11/17/16 12:45 12/17/16 12:44 Glucose (Glucose Chew Tab) 4-8 Tablets 4 Tabl... UD PRN PO 11/17/16 12:45 12/17/16 12:44 Dextrose (Dextrose 50% 50ML Syringe) 25-50ML OF 50% DW IV FOR... UD PRN IV 11/17/16 12:45 12/17/16 12:44 Glucagon (Glucagon Inj) 1 mg UD PRN SQ 11/17/16 12:45 12/17/16 12:44 Polyethylene (Miralax Powder Packet) 17 gm DAILY PRN PO 11/17/16 12:45 12/17/16 12:44 Docusate Sodium (coLACE CAP) 100 mg BID PO 11/17/16 21:00 12/17/16 20:59 12/03/16 21:01 100 MG Al Hydroxide/Mg Hydroxide (Maalox Susp) 15 ml Q4H PRN PO 11/21/16 21:45 12/21/16 21:44 12/04/16 02:37 15 ML Miscellaneous Information (Consult Glycemic Management Pharmacy) 1 ea UD PRN N/A 11/23/16 09:47 12/23/16 09:46 Enteral Nutritional Formula (Boost Glucose Control) 0.5 can ACHS PO 11/23/16 11:00 12/23/16 10:59 12/05/16 11:44 0.5 CAN Insulin Aspart (novoLOG ASPART) SLIDING SCALE ACHS SC 11/24/16 21:00 12/24/16 20:59 12/05/16 12:52 1 UNITS Benzonatate (Tessalon Perles Cap) 100 mg TID PRN PO 11/24/16 15:00 12/24/16 14:59 11/27/16 20:58 100 MG Oxymetazoline HCl (Afrin 0.05% Nasal [place]) 1 sprays Q6H PRN NA 11/25/16 11:00 12/25/16 10:59 Oxycodone/ Acetaminophen (Percocet 5-325mg Tab) 1 tab Q4H PRN PO 12/01/16 13:30 12/15/16 13:29 Piperacillin Sod/ Tazobactam Sod (Consult) 1 ea UD PRN N/A 12/02/16 08:00 01/01/17 07:59 Piperacillin Sod/ Tazobactam Sod 3.375 gm/Dextrose 115 ml @ 28.75 mls/ hr Q12@0400,1600 IV 12/02/16 16:00 12/09/16 15:59 12/05/16 03:48 28.75 MLS/HR Ascorbic Acid (Vitamin C Tab) 500 mg QAM PO 12/03/16 09:00 01/02/17 08:59 12/05/16 08:01 500 MG Zinc Sulfate (Zinc Sulfate Cap) 220 mg QAM PO 12/03/16 09:00 01/02/17 08:59 12/05/16 08:00 220 MG Albuterol/ Ipratropium (Duoneb) 3 ml Q4R PRN INH 12/03/16 08:45 01/02/17 08:44 Heparin Sodium (Porcine) (Heparin Sq 5000 Unit/0.5ml) 5,000 unit Q12 SQ 12/03/16 21:00 01/03/17 20:59 12/05/16 09:09 5,000 UNIT Mirtazapine (Remeron Tab) 7.5 mg HS PO 12/04/16 21:00 12/13/16 20:59 12/04/16 21:32 7.5 MG Ferrous Sulfate (Feosol Tab) 325 mg TIDM PO 12/04/16 11:30 01/03/17 11:29 12/05/16 11:23 325 MG Insulin Glargine (Lantus Solostar Pen) SEE PROTOCOL BID SC 12/04/16 21:00 01/03/17 20:59 12/05/16 09:05 12 UNITS Morphine Sulfate (MoRPHine SULFATE INJ) 1 mg Q2H PRN IV 12/05/16 09:45 12/19/16 09:44 Propranolol HCl (Inderal Tab) 5 mg BID PO 12/05/16 21:00 01/04/17 20:59 Midodrine (Proamatine Tab) 10 mg TID@08,12,17 PO 12/05/16 12:00 12/29/16 07:59 12/05/16 11:41 10 MG I & O: 24-Hour Column 12/06/16 07:59 Output Total 1081 ml Balance -1081 ml Vital Signs: Date Time Temp Pulse Resp B/P (MAP) Pulse Ox O2 Delivery O2 Flow Rate FiO2 12/05/16 15:41 37.1 73 16 102/62 (75) 100 Room Air 12/05/16 12:07 36.4 63 103/42 (62) 12/05/16 12:00 97 Nasal Cannula 2.0 12/05/16 11:36 65 88/41 12/05/16 11:15 60 92/34 12/05/16 11:00 60 84/37 12/05/16 10:45 60 83/44 12/05/16 10:45 60 14 83/44 (57) 100 12/05/16 10:31 56 16 81/45 (57) 100 12/05/16 10:30 60 81/45 12/05/16 10:30 59 18 97 12/05/16 10:15 60 19 87/38 (54) 98 12/05/16 10:15 62 87/38 12/05/16 10:03 61 16 84/36 (52) 98 12/05/16 10:00 63 84/36 12/05/16 10:00 63 17 99 12/05/16 09:46 61 24 77/40 (52) 94 12/05/16 09:45 60 18 97 12/05/16 09:45 60 77/40 12/05/16 09:31 58 17 70/27 (41) 12/05/16 09:30 57 70/27 12/05/16 09:30 59 15 99 12/05/16 09:15 60 94/42 12/05/16 09:15 64 19 94/42 (59) 100 12/05/16 09:02 62 19 85/40 (55) 12/05/16 09:00 64 30 100 12/05/16 08:55 36.8 62 85/40 (55) 12/05/16 08:51 62 17 87/38 (54) 93 12/05/16 08:45 67 23 95 12/05/16 08:30 62 16 94 12/05/16 08:15 62 16 95 12/05/16 08:00 98 Nasal Cannula 2.0 12/05/16 08:00 68 21 90/44 (59) 98 12/05/16 06:00 61 16 85/42 (55) 97 12/05/16 05:00 60 18 80/35 (53) 96 12/05/16 04:01 68 29 85/46 (71) 96 12/05/16 04:00 97 Nasal Cannula 2.0 12/05/16 04:00 36.9 12/05/16 03:01 60 25 81/36 (56) 96 12/05/16 02:00 62 14 77/28 (50) 97 12/05/16 01:00 61 21 74/26 (49) 98 12/05/16 00:24 65 17 81/31 (42) 98 12/05/16 00:01 36.9 12/04/16 23:59 100 Nasal Cannula 2.0 12/04/16 23:00 62 18 86/31 (42) 98 12/04/16 22:00 68 17 87/32 (51) 97 12/04/16 21:00 71 18 96/35 (52) 91 12/04/16 20:01 71 24 107/35 (71) 94 12/04/16 20:00 37.8 12/04/16 20:00 93 Room Air 12/04/16 19:00 69 25 97/36 (58) 91 12/04/16 18:00 69 23 100/35 (56) 93 12/04/16 16:00 92 Room Air 12/04/16 16:00 36.6 75 18 106/44 (64) 95 Room Air Laboratory Results: Last 24 Hours Test 12/04/16 16:46 12/04/16 21:25 12/05/16 05:14 12/05/16 06:17 Bedside Glucose 160 mg/dl 189 mg/dl 139 mg/dl White Blood Count 16.35 K/uL Red Blood Count 2.65 M/uL Hemoglobin 8.0 g/dL Hematocrit 24.8 % Mean Corpuscular Volume 93.6 fL Mean Corpuscular Hemoglobin 30.2 pg Mean Corpuscular Hemoglobin Concent 32.3 g/dl RDW Standard Deviation 80.4 fL RDW Coefficient of Variation 23.6 % Platelet Count 90 K/uL Mean Platelet Volume 11.8 fL Platelet Estimate DECREASED Sodium Level 139 mmol/L Potassium Level 3.6 mmol/L Chloride Level 103 mmol/L Carbon Dioxide Level 26 mmol/L Anion Gap 10.0 mmol/L Blood Urea Nitrogen 24 mg/dl Creatinine 3.30 mg/dl Est Creatinine Clear Calc Drug Dose 12.5 ml/min Estimated GFR () 15.0 Estimated GFR (Non- 12.9 BUN/Creatinine Ratio 7.2 Random Glucose 134 mg/dl Calcium Level 7.5 mg/dl Phosphorus Level 4.1 mg/dl Magnesium Level 1.8 mg/dl Total Bilirubin 1.5 mg/dl Aspartate Amino Transf (AST/SGOT) 77 U/L Alanine Aminotransferase (ALT/SGPT) 28 U/L Alkaline Phosphatase 197 U/L Total Protein 5.3 gm/dl Albumin 1.9 gm/dl Globulin 3.4 gm/dl Albumin/Globulin Ratio 0.6 Procalcitonin 1.39 ng/ml Test 12/05/16 11:28 Bedside Glucose 106 mg/dl
[2016-12-05] MEDS: ATORVASTATIN 10 MG TAB PO SCH ×2 (21:00→21:02)
[2016-12-05] MEDS: MIRTAZAPINE TAB 15 MG TAB PO SCH ×2 (21:00→21:05)
[2016-12-06] MEDS: PIPERACILL/TAZOBAC IV 3.375 GM in DEXTROSE 5% 100ML IV SCH (04:02)
[2016-12-06 05:01] VITALS: BP_SYST 74; BP_SYST 80; BP_DIAS 34; BP_DIAS 38; PULSE 63; TEMP 37.1; O2SAT 98
[2016-12-06] MEDS: INSULIN ASPART 100 UNITS/ML 3 ML PEN SC SCH ×2 (07:00→12:21)
[2016-12-06 07:12] VITALS: BP 89/52; PULSE 68; TEMP 37; O2SAT 97
[2016-12-06] MEDS: BOOST GLUCOSE CONTROL PO SCH ×4 (08:01→19:52)
[2016-12-06] MEDS: DOCUSATE SODIUM 100 MG CAP PO SCH ×2 (08:02→19:53)
[2016-12-06] MEDS: ZINC SULFATE 220 MG CAP PO SCH (08:02)
[2016-12-06] MEDS: CHOLESTYRAMINE LIGHT 4 GM PKT PO SCH (08:02)
[2016-12-06] MEDS: FERROUS SULFATE 325 MG TAB PO SCH ×2 (08:02→11:05)
[2016-12-06] MEDS: PANTOprazole SOD 40 MG TAB PO SCH (08:02)
[2016-12-06] MEDS: ASCORBIC ACID 500 MG TAB PO SCH (08:02)
[2016-12-06] MEDS: PROPRANOLOL HCL 10 MG TAB PO SCH ×2 (08:04→19:53)
[2016-12-06] MEDS: MIDODRINE 10 MG TAB PO SCH ×3 (08:06→16:38)
[2016-12-06] MEDS: HEPARIN SOD 5000 UNIT/0.5 ML CARP SQ SCH (08:09)
[2016-12-06] MEDS: INSULIN GLARGINE SOLOSTAR 100 UNITS/ML 3 ML PEN SC SCH (08:09)
--- NOTE | 2016-12-06 08:25 | Pulmonology Progress Note ---
Pulmonary Progress Note Date of Service Dec 06, 2016. Attending Dr. Phoenix Subjective Patient notes mild improvement in her respiratory status since yesterday, " It' s a little easier to breath". Objective She is currently showing no signs of increased work of breathing. She also notes minimal CP CS: Stable Chest Tube: 1.3L Gen.: Patient is alert and orientated 3 Respiratory: Decreased breath sounds right hemithorax Chest tube: Small bore chest tube in place. There was a notable kink between the chest tube and the Pneumovax. I ended this mildly melt in approximately 900 cc of fluid came out within a 15 minute window. 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 This patient will most likely require pleural drainage for alleviation of shortness of breath but at the cost of her intra-vascular volume and protein levels. If the patient and family desire an IPC to go home with or to hospice possible the pulmonary team can place one. Will continue to follow along at this time. Will also keep the CT to water seal at this time. Data Medications: Current Inpatient Medications Medications (Trade) Dose Ordered Sig/Edilson Route Start Time Stop Time Status Last Admin Dose Admin Albuterol (Ventolin Hfa Inhaler) 2 puffs Q4 PRN INH 11/12/16 22:00 12/12/16 21:59 Atorvastatin Calcium (Lipitor Tab) 10 mg HS PO 11/13/16 21:00 12/13/16 20:59 12/04/16 21:32 10 MG Cholestyramine Resin (Questran Powder Light) 4 gm BID@, PO 11/12/16 22:00 12/12/16 21:59 12/05/16 09:11 4 GM Ondansetron HCl (Zofran Tab) 4 mg Q6H PRN PO 11/12/16 22:00 12/12/16 21:59 12/05/16 11:43 4 MG Pantoprazole Sodium (Protonix Tab) 40 mg DAILY PO 11/13/16 09:00 12/13/16 08:59 12/05/16 08:02 40 MG Buspirone HCl (Buspar Tab) 10 mg TID PO 11/13/16 09:00 12/13/16 08:59 12/06/16 08:06 10 MG Loperamide HCl (Imodium Cap) 2 mg Q12H PRN PO 11/12/16 22:00 12/12/16 21:59 12/04/16 08:44 2 MG Glucose (Glucose 40% Gel) 15-30 GRAMS 15 GRAMS... UD PRN PO 11/17/16 12:45 12/17/16 12:44 Glucose (Glucose Chew Tab) 4-8 Tablets 4 Tabl... UD PRN PO 11/17/16 12:45 12/17/16 12:44 Dextrose (Dextrose 50% 50ML Syringe) 25-50ML OF 50% DW IV FOR... UD PRN IV 11/17/16 12:45 12/17/16 12:44 Glucagon (Glucagon Inj) 1 mg UD PRN SQ 11/17/16 12:45 12/17/16 12:44 Polyethylene (Miralax Powder Packet) 17 gm DAILY PRN PO 11/17/16 12:45 12/17/16 12:44 Docusate Sodium (coLACE CAP) 100 mg BID PO 11/17/16 21:00 12/17/16 20:59 12/03/16 21:01 100 MG Al Hydroxide/Mg Hydroxide (Maalox Susp) 15 ml Q4H PRN PO 11/21/16 21:45 12/21/16 21:44 12/04/16 02:37 15 ML Miscellaneous Information (Consult Glycemic Management Pharmacy) 1 ea UD PRN N/A 11/23/16 09:47 12/23/16 09:46 Enteral Nutritional Formula (Boost Glucose Control) 0.5 can ACHS PO 11/23/16 11:00 12/23/16 10:59 12/05/16 18:23 0.5 CAN Insulin Aspart (novoLOG ASPART) SLIDING SCALE ACHS SC 11/24/16 21:00 12/24/16 20:59 12/05/16 21:12 2 UNITS Benzonatate (Tessalon Perles Cap) 100 mg TID PRN PO 11/24/16 15:00 12/24/16 14:59 11/27/16 20:58 100 MG Oxymetazoline HCl (Afrin 0.05% Nasal [place]) 1 sprays Q6H PRN NA 11/25/16 11:00 12/25/16 10:59 Oxycodone/ Acetaminophen (Percocet 5-325mg Tab) 1 tab Q4H PRN PO 12/01/16 13:30 12/15/16 13:29 Piperacillin Sod/ Tazobactam Sod (Consult) 1 ea UD PRN N/A 12/02/16 08:00 01/01/17 07:59 Piperacillin Sod/ Tazobactam Sod 3.375 gm/Dextrose 115 ml @ 28.75 mls/ hr Q12@0400,1600 IV 12/02/16 16:00 12/09/16 15:59 12/06/16 04:02 28.75 MLS/HR Ascorbic Acid (Vitamin C Tab) 500 mg QAM PO 12/03/16 09:00 01/02/17 08:59 12/05/16 08:01 500 MG Zinc Sulfate (Zinc Sulfate Cap) 220 mg QAM PO 12/03/16 09:00 01/02/17 08:59 12/05/16 08:00 220 MG Albuterol/ Ipratropium (Duoneb) 3 ml Q4R PRN INH 12/03/16 08:45 01/02/17 08:44 Heparin Sodium (Porcine) (Heparin Sq 5000 Unit/0.5ml) 5,000 unit Q12 SQ 12/03/16 21:00 01/03/17 20:59 12/06/16 08:09 5,000 UNIT Mirtazapine (Remeron Tab) 7.5 mg HS PO 12/04/16 21:00 12/13/16 20:59 12/04/16 21:32 7.5 MG Ferrous Sulfate (Feosol Tab) 325 mg TIDM PO 12/04/16 11:30 01/03/17 11:29 12/05/16 18:21 325 MG Insulin Glargine (Lantus Solostar Pen) SEE PROTOCOL BID SC 12/04/16 21:00 01/03/17 20:59 12/06/16 08:09 16 UNITS Morphine Sulfate (MoRPHine SULFATE INJ) 1 mg Q2H PRN IV 12/05/16 09:45 12/19/16 09:44 Propranolol HCl (Inderal Tab) 5 mg BID PO 12/05/16 21:00 01/04/17 20:59 12/06/16 08:04 5 MG Midodrine (Proamatine Tab) 10 mg TID@08,12,17 PO 12/05/16 12:00 12/29/16 07:59 12/06/16 08:06 10 MG Vital Signs: Date Time Temp Pulse Resp B/P (MAP) Pulse Ox O2 Delivery O2 Flow Rate FiO2 12/06/16 07:12 37.0 68 17 89/52 (64) 97 Nasal Cannula 2.0 12/06/16 05:01 37.1 63 18 74/34 (47) 98 Nasal Cannula 2.0 80/38 (52) 12/06/16 04:00 Nasal Cannula 2.0 12/06/16 00:00 Nasal Cannula 2.0 12/05/16 23:40 37.0 66 16 88/52 (64) 97 2.0 12/05/16 22:00 37.3 69 18 93/52 (66) 91 Room Air 12/05/16 20:00 94 Room Air 12/05/16 18:54 37.4 72 18 80/34 (49) 94 Room Air 85/43 (57) 12/05/16 16:00 100 Nasal Cannula 2.0 12/05/16 15:41 37.1 73 16 102/62 (75) 100 Room Air 12/05/16 12:07 36.4 63 103/42 (62) 12/05/16 12:00 97 Nasal Cannula 2.0 12/05/16 11:36 65 88/41 12/05/16 11:15 60 92/34 12/05/16 11:00 60 84/37 12/05/16 10:45 60 83/44 12/05/16 10:45 60 14 83/44 (57) 100 12/05/16 10:31 56 16 81/45 (57) 100 12/05/16 10:30 60 81/45 12/05/16 10:30 59 18 97 12/05/16 10:15 60 19 87/38 (54) 98 12/05/16 10:15 62 87/38 12/05/16 10:03 61 16 84/36 (52) 98 12/05/16 10:00 63 84/36 12/05/16 10:00 63 17 99 12/05/16 09:46 61 24 77/40 (52) 94 12/05/16 09:45 60 18 97 12/05/16 09:45 60 77/40 12/05/16 09:31 58 17 70/27 (41) 12/05/16 09:30 57 70/27 12/05/16 09:30 59 15 99 12/05/16 09:15 60 94/42 12/05/16 09:15 64 19 94/42 (59) 100 12/05/16 09:02 62 19 85/40 (55) 12/05/16 09:00 64 30 100 12/05/16 08:55 36.8 62 85/40 (55) 12/05/16 08:51 62 17 87/38 (54) 93 12/05/16 08:45 67 23 95 12/05/16 08:30 62 16 94 Laboratory Results: Last 24 Hours Test 12/05/16 11:28 12/05/16 16:03 12/05/16 20:15 12/06/16 06:14 Bedside Glucose 106 mg/dl 117 mg/dl 197 mg/dl 164 mg/dl
[2016-12-06 11:34] VITALS: BP 77/43; PULSE 66; TEMP 37; O2SAT 97
[2016-12-06 15:08] VITALS: BP_SYST 76; BP_SYST 85; BP_DIAS 45; BP_DIAS 49; PULSE 67; TEMP 36.7; O2SAT 98
--- NOTE | 2016-12-06 16:08 | Palliative Care Progress Note ---
Palliative Care Progress Note Date of Service Dec 06, 2016. Subjective Pt evaluation today including: conversation w/ patient, conversation w/ family (- Oni, son- Shane), physical exam, chart review, conversation w/ sharepoint consultant (Dr. Dickson), review of inpatient medication list Pain: 0/10 PO Intake: tolerating small amounts -Patient is awake, alert and oriented x4. She denies c/o pain or SOB at this time. -Chest tube remains in. -Not making much urine. Review of Systems Constitutional: + weakness ENT: No trouble swallowing Respiratory: No cough, No shortness of breath Cardiac: No chest pain Abdomen: No pain, No nausea, No vomiting Psychiatric: No depression symptoms, No anxiety Objective Vital Signs Date Time Temp Pulse Resp B/P (MAP) Pulse Ox O2 Delivery O2 Flow Rate FiO2 12/06/16 12:00 Nasal Cannula 2.0 12/06/16 11:34 37.0 66 17 77/43 (54) 97 Nasal Cannula 2.0 12/06/16 08:00 Nasal Cannula 2.0 12/06/16 07:12 37.0 68 17 89/52 (64) 97 Nasal Cannula 2.0 12/06/16 05:01 37.1 63 18 74/34 (47) 98 Nasal Cannula 2.0 80/38 (52) 12/06/16 04:00 Nasal Cannula 2.0 12/06/16 00:00 Nasal Cannula 2.0 12/05/16 23:40 37.0 66 16 88/52 (64) 97 2.0 12/05/16 22:00 37.3 69 18 93/52 (66) 91 Room Air 12/05/16 20:00 94 Room Air 12/05/16 18:54 37.4 72 18 80/34 (49) 94 Room Air 85/43 (57) 12/05/16 16:00 100 Nasal Cannula 2.0 12/05/16 15:41 37.1 73 16 102/62 (75) 100 Room Air Physical Exam General Appearance: no apparent distress Eyes: + pertinent finding (bilateral icterus) ENT: hearing grossly normal Neck: supple, no JVD Respiratory/Chest: no respiratory distress, no accessory muscle use, + decreased breath sounds Cardiovascular: regular rate, rhythm, + normal peripheral pulses Abdomen: normal bowel sounds, non tender, soft Neurologic/Psychiatric: alert, normal mood/affect, oriented x 3 Laboratory Results Last 24 Hours Test 12/05/16 16:03 12/05/16 20:15 12/06/16 06:14 12/06/16 11:18 Bedside Glucose 117 mg/dl 197 mg/dl 164 mg/dl 145 mg/dl Assessment and Plan Problem list: Acute respiratory failure 2/2 large right pleural effusion ROSANGELA on CKD- now on dialysis Aspiration pneumonia 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 -She does not want any further lab work. -Patient is requesting to be transferred to [facility] for hospice care (case management following). Her and son were at bedside and in agreement with patient's wishes. -I explained a POLST form and patient and family would like to fill one out before discharge. Patient was changed to level 5 DNR. I will continue to follow. Palliative Performance Scale: 40 % Discharge planning: senior care facility (with hospice)
--- NOTE | 2016-12-06 18:07 | Nephrology Progress Note ---
Nephrology Progress Note Date of Service: Dec 06, 2016. Subjective seen and evaluated on rounds this am approx 0900; CT w/ ongoing large output and currently unclamped; she had extensive discussion with family, Dr Dickson, palliative care yesterday and made DNR but was at that time undecided about dialysis; on rounds she stated she wants no HD today but unsure about later HD in future; then later today states w/ further discussions w/ palliative that she wants no further dialysis; no uncontrolled pain and no N; she is very tired and weak Objective Date Time Temp Pulse Resp B/P (MAP) Pulse Ox O2 Delivery O2 Flow Rate FiO2 12/06/16 16:17 Nasal Cannula 2.0 12/06/16 15:08 36.7 67 16 85/49 (61) 98 Nasal Cannula 2.0 76/45 (55) 12/06/16 12:00 Nasal Cannula 2.0 12/06/16 11:34 37.0 66 17 77/43 (54) 97 Nasal Cannula 2.0 12/06/16 08:00 Nasal Cannula 2.0 12/06/16 07:12 37.0 68 17 89/52 (64) 97 Nasal Cannula 2.0 12/06/16 05:01 37.1 63 18 74/34 (47) 98 Nasal Cannula 2.0 80/38 (52) 12/06/16 04:00 Nasal Cannula 2.0 12/06/16 00:00 Nasal Cannula 2.0 12/05/16 23:40 37.0 66 16 88/52 (64) 97 2.0 12/05/16 22:00 37.3 69 18 93/52 (66) 91 Room Air 12/05/16 20:00 94 Room Air 12/05/16 18:54 37.4 72 18 80/34 (49) 94 Room Air 85/43 (57) Physical Exam: General-on 02NC, nad, a& O x 3 but tired Eyes-eomi ENT-dry mm Neck-supple Lungs-very diminished, CT R w/ copious output Heart-RRR; 3+ BL to hips edema Abdomen-soft NT + bs, no garcia Extremities-no c/c Neuro-mendes, fluent speech Current Inpatient Medications Medications (Trade) Dose Ordered Sig/Edilson Route Start Time Stop Time Status Last Admin Dose Admin Albuterol (Ventolin Hfa Inhaler) 2 puffs Q4 PRN INH 11/12/16 22:00 12/12/16 21:59 Ondansetron HCl (Zofran Tab) 4 mg Q6H PRN PO 11/12/16 22:00 12/12/16 21:59 12/05/16 11:43 4 MG Pantoprazole Sodium (Protonix Tab) 40 mg DAILY PO 11/13/16 09:00 12/13/16 08:59 12/05/16 08:02 40 MG Buspirone HCl (Buspar Tab) 10 mg TID PO 11/13/16 09:00 12/13/16 08:59 12/06/16 14:39 10 MG Loperamide HCl (Imodium Cap) 2 mg Q12H PRN PO 11/12/16 22:00 12/12/16 21:59 12/04/16 08:44 2 MG Polyethylene (Miralax Powder Packet) 17 gm DAILY PRN PO 11/17/16 12:45 12/17/16 12:44 Docusate Sodium (coLACE CAP) 100 mg BID PO 11/17/16 21:00 12/17/16 20:59 12/03/16 21:01 100 MG Al Hydroxide/Mg Hydroxide (Maalox Susp) 15 ml Q4H PRN PO 11/21/16 21:45 12/21/16 21:44 12/04/16 02:37 15 ML Enteral Nutritional Formula (Boost Glucose Control) 0.5 can ACHS PO 11/23/16 11:00 12/23/16 10:59 12/05/16 18:23 0.5 CAN Benzonatate (Tessalon Perles Cap) 100 mg TID PRN PO 11/24/16 15:00 12/24/16 14:59 11/27/16 20:58 100 MG Oxymetazoline HCl (Afrin 0.05% Nasal [place]) 1 sprays Q6H PRN NA 11/25/16 11:00 12/25/16 10:59 Oxycodone/ Acetaminophen (Percocet 5-325mg Tab) 1 tab Q4H PRN PO 12/01/16 13:30 12/15/16 13:29 Albuterol/ Ipratropium (Duoneb) 3 ml Q4R PRN INH 12/03/16 08:45 01/02/17 08:44 Mirtazapine (Remeron Tab) 7.5 mg HS PO 12/04/16 21:00 12/13/16 20:59 12/04/16 21:32 7.5 MG Morphine Sulfate (MoRPHine SULFATE INJ) 1 mg Q2H PRN IV 12/05/16 09:45 12/19/16 09:44 Propranolol HCl (Inderal Tab) 5 mg BID PO 12/05/16 21:00 01/04/17 20:59 12/06/16 08:04 5 MG Midodrine (Proamatine Tab) 10 mg TID@08,,17 PO 12/05/16 12:00 12/29/16 07:59 12/06/16 16:38 10 MG Last 24 Hours Test 12/05/16 20:15 12/06/16 06:14 12/06/16 11:18 12/06/16 16:16 Bedside Glucose 197 mg/dl 164 mg/dl 145 mg/dl 157 mg/dl Assessment & Plan 76 yo female with arturo on ckd 4/5 in setting of cirrhosis with aspiration pneumonia. started on midodrine 11/29 to help with bp while removing fluid. on had acute hypoxic respiratory failure and moved to ICU > got C Tube on R. arturo on ckd 4 w/ liver cirrhosis -had been getting daily dialysis with gentle fluid removal. on midodrine to help with bp while removing fluid. plan on dialysis again tomorrow. Started HD 11/27; presumed anuric (incontinent) since 12/01. getting near daily HD to optimize fluid removal. >>after consultation w/ pt, her family, hospitalist, palliative care, will stop dialysis at this time per her wishes; she is now on comfort measures. Pls call if renal team can be of further help.
[2016-12-06 18:34] VITALS: BP 76/45; PULSE 67; TEMP 36.7; O2SAT 98
[2016-12-06 18:50] VITALS: BP 79/41; PULSE 65; TEMP 37; O2SAT 97
[2016-12-06] MEDS: MIRTAZAPINE TAB 15 MG TAB PO SCH (21:00)
--- NOTE | 2016-12-06 21:30 | Progress Note ---
Medicine Progress Note Date & Time of Visit: Dec 06, 2016 at 14:45 . Subjective Comfortable. Pt reaffirms that she does not want to continue dialysis or other aggressive measures. No fever. Occasional cough. No SOB. No chest pain. No nausea or vomiting. . Objective Last 8 Hrs Date Time Temp Pulse Resp B/P (MAP) Pulse Ox O2 Delivery O2 Flow Rate FiO2 12/06/16 18:50 Nasal Cannula 2.0 12/06/16 18:50 37.0 65 18 79/41 (54) 97 Nasal Cannula 2.0 12/06/16 18:34 36.7 67 16 98 2.0 12/06/16 16:17 Nasal Cannula 2.0 12/06/16 15:08 36.7 67 16 85/49 (61) 98 Nasal Cannula 2.0 76/45 (55) Physical Exam: General- no distress Lungs- rales right base Heart- RRR Thorax- right chest tube Abdomen- + BS, soft, nontender Extremities- 2+ pretibial edema; no calf tenderness Neuro- alert . Laboratory Results: Last 24 Hours Test 12/06/16 06:14 12/06/16 11:18 12/06/16 16:16 Bedside Glucose 164 mg/dl 145 mg/dl 157 mg/dl Assessment & Plan ACUTE HYPOXIC RESPIRATORY FAILURE Secondary to large right pleural effusion. 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 Chest tube placed with improvement. Palliative PleurX catheter discussed. Management per Pulmonary Medicine. ACUTE KIDNEY INJURY / CKD IV Creatinine in ED 2.5, compared to 1.9 on 10/29/16. Acute kidney injury with underlying CKD IV. Underlying cirrhosis on diuretic therapy. Nephrology consulted. Creatinine worsened and hemodialysis initiated. Patient now declining further hemodialysis. ELEVATED TROPONIN No associated chest pain. EKG shows nonspecific T-wave changes. Serum troponin as high as 4.050. Total CPKs repeatedly normal; CPK-MB's essentially normal. Echocardiogram on 11/13/16 did not show any wall motion abnormalities. Elevated troponin probably nonspecific, perhaps related to fall. ASPIRATION PNEUMONIA Treated with course of piperacillin / tazobactam. 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 Associated portal hypertension, esophageal varices, ascites. Management per GI. LARGE HIATAL HERNIA Evaluated in past by Thoracic Surgery. Surgical intervention not advised due to comorbidities. Elevated head of bed. Upright when eating / drinking. Continue PPI. ANOREXIA / MALNUTRITION Probably multifactorial- hiatal hernia, GERD, cirrhosis, meds, dentition. Nutrition consulted for recommendations. Changed anti-depressant from fluoxetine to mirtazapine. HISTORY HYPERTENSION / HYPOTENSION Recent blood pressures running low. Amlodipine discontinued. Receiving midodrine. Propranolol dose reduced. Continue midodrine. Fall precautions. DM TYPE 2 Usually diet-controlled. Random blood sugar in ED 144. Hgb A1C 6.7 on 09/06/16. Will stop fingerstick blood sugars and insulin coverage due to transition to comfort measures only. ANXIETY / DEPRESSION On fluoxetine at time of admission that may be contributing to anorexia. Switched from fluoxetine to mirtazapine; dose reduced to 7.5 mg HS. Continue buspirone. DVT PROPHYLAXIS Moderately high risk for DVT. SQ heparin and SCD's utilized. VTE prophylaxis stopped due to transition to comfort measures only. ADVANCED DIRECTIVES / RESUSCITATION STATUS Multiple chronic and acute medical concerns. Palliative Care consultation requested. Code status changed to "Level 5" (DNR) per patient's wishes. DISPOSITION Patient requesting transfer to [facility] for terminal / palliative care. Case Management consulted. . Discharge planning: residential facility (with hospice) Consultants: Nephrology GI CCM Pulmonary Medicine Palliative Care . Procedures: US gallbladder US abdomen x 2 CT chest x 2 venous duplex echocardiogram x 2 IV meds placement of hemodialysis catheter hemodialysis right chest tube placement . Current Inpatient Medications: Current Inpatient Medications Medications (Trade) Dose Ordered Sig/Edilson Route Start Time Stop Time Status Last Admin Dose Admin Albuterol (Ventolin Hfa Inhaler) 2 puffs Q4 PRN INH 11/12/16 22:00 12/12/16 21:59 Ondansetron HCl (Zofran Tab) 4 mg Q6H PRN PO 11/12/16 22:00 12/12/16 21:59 12/05/16 11:43 4 MG Pantoprazole Sodium (Protonix Tab) 40 mg DAILY PO 11/13/16 09:00 12/13/16 08:59 12/05/16 08:02 40 MG Buspirone HCl (Buspar Tab) 10 mg TID PO 11/13/16 09:00 12/13/16 08:59 12/06/16 14:39 10 MG Loperamide HCl (Imodium Cap) 2 mg Q12H PRN PO 11/12/16 22:00 12/12/16 21:59 12/04/16 08:44 2 MG Polyethylene (Miralax Powder Packet) 17 gm DAILY PRN PO 11/17/16 12:45 12/17/16 12:44 Docusate Sodium (coLACE CAP) 100 mg BID PO 11/17/16 21:00 12/17/16 20:59 12/03/16 21:01 100 MG Al Hydroxide/Mg Hydroxide (Maalox Susp) 15 ml Q4H PRN PO 11/21/16 21:45 12/21/16 21:44 12/04/16 02:37 15 ML Enteral Nutritional Formula (Boost Glucose Control) 0.5 can ACHS PO 11/23/16 11:00 12/23/16 10:59 12/06/16 19:52 0.5 CAN Benzonatate (Tessalon Perles Cap) 100 mg TID PRN PO 11/24/16 15:00 12/24/16 14:59 11/27/16 20:58 100 MG Oxymetazoline HCl (Afrin 0.05% Nasal [place]) 1 sprays Q6H PRN NA 11/25/16 11:00 12/25/16 10:59 Oxycodone/ Acetaminophen (Percocet 5-325mg Tab) 1 tab Q4H PRN PO 12/01/16 13:30 12/15/16 13:29 Albuterol/ Ipratropium (Duoneb) 3 ml Q4R PRN INH 12/03/16 08:45 01/02/17 08:44 Mirtazapine (Remeron Tab) 7.5 mg HS PO 12/04/16 21:00 12/13/16 20:59 12/04/16 21:32 7.5 MG Morphine Sulfate (MoRPHine SULFATE INJ) 1 mg Q2H PRN IV 12/05/16 09:45 12/19/16 09:44 Propranolol HCl (Inderal Tab) 5 mg BID PO 12/05/16 21:00 01/04/17 20:59 12/06/16 08:04 5 MG Midodrine (Proamatine Tab) 10 mg TID@,,17 PO 12/05/16 12:00 12/29/16 07:59 12/06/16 16:38 10 MG
[2016-12-06] MEDS: MoRPHine SULFATE 2 MG/ML CARP IV PRN (22:33)
[2016-12-07] MEDS: BOOST GLUCOSE CONTROL PO SCH ×4 (06:30→21:00)
[2016-12-07] MEDS: DOCUSATE SODIUM 100 MG CAP PO SCH ×2 (08:00→20:00)
[2016-12-07] MEDS: PANTOprazole SOD 40 MG TAB PO SCH (08:12)
[2016-12-07] MEDS: MIDODRINE 10 MG TAB PO SCH ×3 (08:13→17:00)
--- NOTE | 2016-12-07 08:15 | Pulmonology Progress Note ---
Pulmonary Progress Note Date of Service Dec 07, 2016. Attending Dr. Phoenix Subjective Patient still very fatigued today but denies any dyspnea at rest Objective Patient appears comfortable able to sit up in bed with help and showing no signs of accessory muscle use/increased work of breathing at this time Vital signs: Previously as well as signs are stable waiting for charting her vital signs at this time CS: Stable Chest Tube: 1.3L Gen.: Patient is alert and orientated 3 Respiratory: Decreased breath sounds right hemithorax Chest tube: Small bore chest tube in place. There was a notable kink between the chest tube and the Pneumovax. I ended this mildly melt in approximately 900 cc of fluid came out within a 15 minute window. 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 She realizes this is for palliative maneuver. Data Medications: Current Inpatient Medications Medications (Trade) Dose Ordered Sig/Edilson Route Start Time Stop Time Status Last Admin Dose Admin Albuterol (Ventolin Hfa Inhaler) 2 puffs Q4 PRN INH 11/12/16 22:00 12/12/16 21:59 Ondansetron HCl (Zofran Tab) 4 mg Q6H PRN PO 11/12/16 22:00 12/12/16 21:59 12/05/16 11:43 4 MG Pantoprazole Sodium (Protonix Tab) 40 mg DAILY PO 11/13/16 09:00 12/13/16 08:59 12/05/16 08:02 40 MG Buspirone HCl (Buspar Tab) 10 mg TID PO 11/13/16 09:00 12/13/16 08:59 12/06/16 14:39 10 MG Loperamide HCl (Imodium Cap) 2 mg Q12H PRN PO 11/12/16 22:00 12/12/16 21:59 12/04/16 08:44 2 MG Polyethylene (Miralax Powder Packet) 17 gm DAILY PRN PO 11/17/16 12:45 12/17/16 12:44 Docusate Sodium (coLACE CAP) 100 mg BID PO 11/17/16 21:00 12/17/16 20:59 12/03/16 21:01 100 MG Al Hydroxide/Mg Hydroxide (Maalox Susp) 15 ml Q4H PRN PO 11/21/16 21:45 12/21/16 21:44 12/04/16 02:37 15 ML Enteral Nutritional Formula (Boost Glucose Control) 0.5 can ACHS PO 11/23/16 11:00 12/23/16 10:59 12/07/16 06:30 0.5 CAN Benzonatate (Tessalon Perles Cap) 100 mg TID PRN PO 11/24/16 15:00 12/24/16 14:59 11/27/16 20:58 100 MG Oxymetazoline HCl (Afrin 0.05% Nasal [place]) 1 sprays Q6H PRN NA 11/25/16 11:00 12/25/16 10:59 Oxycodone/ Acetaminophen (Percocet 5-325mg Tab) 1 tab Q4H PRN PO 12/01/16 13:30 12/15/16 13:29 Albuterol/ Ipratropium (Duoneb) 3 ml Q4R PRN INH 12/03/16 08:45 01/02/17 08:44 Mirtazapine (Remeron Tab) 7.5 mg HS PO 12/04/16 21:00 12/13/16 20:59 12/04/16 21:32 7.5 MG Morphine Sulfate (MoRPHine SULFATE INJ) 1 mg Q2H PRN IV 12/05/16 09:45 12/19/16 09:44 12/06/16 22:33 1 MG Midodrine (Proamatine Tab) 10 mg TID@,, PO 12/05/16 12:00 12/29/16 07:59 12/06/16 16:38 10 MG Vital Signs: Date Time Temp Pulse Resp B/P (MAP) Pulse Ox O2 Delivery O2 Flow Rate FiO2 12/07/16 00:05 Nasal Cannula 2.0 12/06/16 18:50 Nasal Cannula 2.0 12/06/16 18:50 37.0 65 18 79/41 (54) 97 Nasal Cannula 2.0 12/06/16 18:34 36.7 67 16 98 2.0 12/06/16 16:17 Nasal Cannula 2.0 12/06/16 15:08 36.7 67 16 85/49 (61) 98 Nasal Cannula 2.0 76/45 (55) 12/06/16 12:00 Nasal Cannula 2.0 12/06/16 11:34 37.0 66 17 77/43 (54) 97 Nasal Cannula 2.0 Laboratory Results: Last 24 Hours Test 12/06/16 11:18 12/06/16 16:16 Bedside Glucose 145 mg/dl 157 mg/dl
[2016-12-07] MEDS ORDERED: LIDOCAINE HCL 1% 20 ML VIAL ONE (09:08)
[2016-12-07] MEDS ORDERED: KETOROLAC TROMETHAMINE 15 MG/ML VIAL IV. ONE (10:00)
[2016-12-07] MEDS ORDERED: KETOROLAC TROMETHAMINE 15 MG/ML VIAL ONE (10:00)
[2016-12-07] MEDS ORDERED: NURSING VERBAL MED ORDER ONE (10:00)
--- NOTE | 2016-12-07 10:08 | Procedure Note ---
Procedure Note Date of Service Dec 07, 2016. Procedure Note Procedure: Indwelling pleural catheter placement Consent: Obtained through the patient placed in the chart Procedural diagnosis: Hepato-hydrothorax Postprocedural diagnosis: Hepato-hydrothorax Local analgesia: 10 cc of 1% liquid lidocaine Procedure: Patient was placed in left lateral decubitus position and draped and prepped in sterile fashion. Following this patient's initial smallbore chest tube was removed and the ostium was allowed to stay open for small deposition of the parietal and visceral pleura. After this the patient was then draped and prepped in a sterile fashion again in the Pleurx catheter kit was used for modified Seldinger technique for IPC placement. The patient had a small amount approximately 200 cc of mildly serosanguineous pleural fluid removed. The IPC then was hooked up to vacuum container for air removal but the patient did have notable pain at that time suggesting possible trapped lung and the vacuum removal was then discontinued. The patient was on monitoring throughout the procedure and there is no signs of hemodynamic instability and she was saturating at 100% on 5 L throughout. Complications: None noted no acute change in the patient's postprocedural chest x-ray
--- NOTE | 2016-12-07 10:47 | DIAGNOSTIC IMAGING REPORT ---
CHEST ONE VIEW PORTABLE HISTORY: status post central venous catheter placement evaluation of position and PTX COMPARISON: Chest 12/05/2016. FINDINGS: Right jugular central venous catheter terminates in the right atrium. This remains unchanged. Right basilar pleural catheter is also unchanged in position. Prior cholecystectomy. Trace right pleural effusion persist. Right basilar airspace opacities have improved. Small right apical pneumothorax with a pleural gap of the 11 mm remains unchanged. The heart is stable in size. Left mid to lower lung zone densities/effusion are again noted. IMPRESSION: 1. Small right hydropneumothorax is not significantly changed. 2. Improved aeration within the right lung base. 3. No change in the left basilar opacity/effusion. Electronically signed by: Jarrett Quiroz M.D. 12/07/2016 10:45 AM Dictated Date/Time: 12/07/2016 10:43 AM
--- NOTE | 2016-12-07 11:47 | Palliative Care Progress Note ---
Palliative Care Progress Note Date of Service Dec 07, 2016. Subjective Met with patient to do POLST form. Patient wanted to complete it now, did not want to wait for family. Yesterday, I did explain the POLST to Oni and son Bruna. POLST form completed as follows: DNR, comfort measures only, no dialysis, abx with comfort as the goal, and no artificial hydration/nutrition. Plan is still for SNF on comfort measures/hospice care. Case management following. Patient and family anxious to get patient (hopefully) to [facility] to be closer to them.
[2016-12-07] MEDS: ONDANSETRON 4 MG TAB PO PRN (14:13)
[2016-12-07] MEDS ORDERED: LORAZEPAM 0.5 MG TAB PO PRN (16:15)
[2016-12-07] MEDS: MoRPHine SULFATE 2 MG/ML CARP IV PRN ×2 (17:46→22:19)
--- NOTE | 2016-12-07 18:38 | Progress Note ---
Medicine Progress Note Date & Time of Visit: Dec 07, 2016 at 08:50 . Subjective Enjoying some junkfood this morning. No pain. No cough or SOB. No nausea or vomiting. . Objective Last 8 Hrs Date Time Temp Pulse Resp B/P (MAP) Pulse Ox O2 Delivery O2 Flow Rate FiO2 12/07/16 16:00 Nasal Cannula 2.0 12/07/16 10:40 Nasal Cannula 2.0 Physical Exam: General- no distress Lungs- rales right base Heart- RRR Thorax- right chest tube Abdomen- + BS, soft, nontender Extremities- 2+ pretibial edema; no calf tenderness Neuro- alert . Laboratory Results: Last 24 Hours Test 12/07/16 09:39 Bedside Glucose 190 mg/dl Assessment & Plan ACUTE HYPOXIC RESPIRATORY FAILURE Secondary to large right pleural effusion. 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 Chest tube placed with improvement of symptoms. Palliative PleurX catheter anticipated. Management per Pulmonary Medicine. ACUTE KIDNEY INJURY / CKD IV Creatinine in ED 2.5, compared to 1.9 on 10/29/16. Acute kidney injury with underlying CKD IV. Underlying cirrhosis on diuretic therapy. Nephrology consulted. Creatinine worsened and hemodialysis initiated. Patient now declining further hemodialysis. ELEVATED TROPONIN No associated chest pain. EKG shows nonspecific T-wave changes. Serum troponin as high as 4.050. Total CPKs repeatedly normal; CPK-MB's essentially normal. Echocardiogram on 11/13/16 did not show any wall motion abnormalities. Elevated troponin probably nonspecific, perhaps related to fall. ASPIRATION PNEUMONIA Treated with course of piperacillin / tazobactam. 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 Associated portal hypertension, esophageal varices, ascites. LARGE HIATAL HERNIA Evaluated in past by Thoracic Surgery. Surgical intervention not advised due to comorbidities. Elevated head of bed. Upright when eating / drinking. Continue PPI. ANOREXIA / MALNUTRITION Probably multifactorial- hiatal hernia, GERD, cirrhosis, meds, dentition. Nutrition consulted for recommendations. Changed anti-depressant from fluoxetine to mirtazapine. HISTORY HYPERTENSION / HYPOTENSION Recent blood pressures running low. Amlodipine discontinued. Receiving midodrine. Propranolol dose reduced. Continue midodrine. Fall precautions. DM TYPE 2 Usually diet-controlled. Random blood sugar in ED 144. Hgb A1C 6.7 on 09/06/16. Stopped fingerstick blood sugars and insulin coverage due to transition to comfort measures only. ANXIETY / DEPRESSION On fluoxetine at time of admission that may be contributing to anorexia. Switched from fluoxetine to mirtazapine; dose reduced to 7.5 mg HS. Continue buspirone. DVT PROPHYLAXIS Moderately high risk for DVT. SQ heparin and SCD's utilized. VTE prophylaxis stopped due to transition to comfort measures only. ADVANCED DIRECTIVES / RESUSCITATION STATUS Multiple chronic and acute medical concerns. Palliative Care consultation requested. Code status changed to "Level 5" (DNR) per patient's wishes. DISPOSITION Patient requesting transfer to [facility] for terminal / palliative care. Case Management consulted. . Discharge planning: correction facility (with hospice) Consultants: Nephrology GI CCM Pulmonary Medicine Palliative Care . Procedures: US gallbladder US abdomen x 2 CT chest x 2 venous duplex echocardiogram x 2 IV meds placement of hemodialysis catheter hemodialysis right chest tube placement . Current Inpatient Medications: Current Inpatient Medications Medications (Trade) Dose Ordered Sig/Edilson Route Start Time Stop Time Status Last Admin Dose Admin Albuterol (Ventolin Hfa Inhaler) 2 puffs Q4 PRN INH 11/12/16 22:00 12/12/16 21:59 Ondansetron HCl (Zofran Tab) 4 mg Q6H PRN PO 11/12/16 22:00 12/12/16 21:59 12/07/16 14:13 4 MG Pantoprazole Sodium (Protonix Tab) 40 mg DAILY PO 11/13/16 09:00 12/13/16 08:59 12/07/16 08:12 40 MG Buspirone HCl (Buspar Tab) 10 mg TID PO 11/13/16 09:00 12/13/16 08:59 12/07/16 08:12 10 MG Loperamide HCl (Imodium Cap) 2 mg Q12H PRN PO 11/12/16 22:00 12/12/16 21:59 12/04/16 08:44 2 MG Polyethylene (Miralax Powder Packet) 17 gm DAILY PRN PO 11/17/16 12:45 12/17/16 12:44 Docusate Sodium (coLACE CAP) 100 mg BID PO 11/17/16 21:00 12/17/16 20:59 12/03/16 21:01 100 MG Al Hydroxide/Mg Hydroxide (Maalox Susp) 15 ml Q4H PRN PO 11/21/16 21:45 12/21/16 21:44 12/04/16 02:37 15 ML Enteral Nutritional Formula (Boost Glucose Control) 0.5 can ACHS PO 11/23/16 11:00 12/23/16 10:59 12/07/16 06:30 0.5 CAN Benzonatate (Tessalon Perles Cap) 100 mg TID PRN PO 11/24/16 15:00 12/24/16 14:59 11/27/16 20:58 100 MG Oxymetazoline HCl (Afrin 0.05% Nasal [place]) 1 sprays Q6H PRN NA 11/25/16 11:00 12/25/16 10:59 Oxycodone/ Acetaminophen (Percocet 5-325mg Tab) 1 tab Q4H PRN PO 12/01/16 13:30 12/15/16 13:29 Albuterol/ Ipratropium (Duoneb) 3 ml Q4R PRN INH 12/03/16 08:45 01/02/17 08:44 Mirtazapine (Remeron Tab) 7.5 mg HS PO 12/04/16 21:00 12/13/16 20:59 12/04/16 21:32 7.5 MG Morphine Sulfate (MoRPHine SULFATE INJ) 1 mg Q2H PRN IV 12/05/16 09:45 12/19/16 09:44 12/07/16 17:46 1 MG Midodrine (Proamatine Tab) 10 mg TID@,,17 PO 12/05/16 12:00 12/29/16 07:59 12/07/16 08:13 10 MG Lorazepam (Ativan Tab) 0.25 mg Q6H PRN PO 12/07/16 16:15 01/06/17 16:14 12/07/16 16:39 0.25 MG
[2016-12-07] MEDS: MIRTAZAPINE TAB 15 MG TAB PO SCH (21:42)
[2016-12-08] MEDS: DOCUSATE SODIUM 100 MG CAP PO SCH ×2 (08:00→20:22)
[2016-12-08] MEDS: MIDODRINE 10 MG TAB PO SCH ×3 (08:17→16:22)
[2016-12-08] MEDS: PANTOprazole SOD 40 MG TAB PO SCH (08:18)
[2016-12-08] MEDS: BOOST GLUCOSE CONTROL PO SCH ×4 (08:19→20:22)
[2016-12-08] MEDS ORDERED: OXYCODONE/ACETAMINOPHEN 5-325 TAB PO ONE (14:15)
--- NOTE | 2016-12-08 15:51 | Progress Note ---
Internal Med Progress Note Date of Service: Dec 08, 2016. Provider Documentation: SUBJECTIVE: patunet currently off of dialysis and plan for longterm hospice afebrile complaints of pain in right side of neck no nausea no sob OBJECTIVE: Vital Signs-as noted below Exam: General-alert and awake. and oriented. ENT-normal hearing Neck-no neck masses Lungs-cta b/l )no wheezing bibasilar crackles present Heart-s1 and s2 heard regular rhythm no murmurs Abdomen-soft bowel sounds present non tender mild distension Extremities-lower extremity edema present no erythema Neuro-alert and oriented moves extremities Lab data as noted below. ASSESSMENT & PLAN: This is a 76 year old female with a PMH of CKD stage IV, DM2, HTN, HLD, GERD, hiatal hernia, MORRISON cirrhosis presented with a fall and found to have elevated troponin and creatinine levels. fall thpought to be from orthostatic hypotension. Norvasc was stopped and midodrine continued. Patient received varying doses of Lasix and albumin for volume overload and sob. Lasix was stopped as Creatine was rising and was s/p thoracocentesis on 11/23/16. Nephrology initiated HD as cr worsening and not responding to diuretics. Seemed to tolerated HD ok. But again today 12/02/16 became sob and was in Resp distress requiring 15lts oxygen and Ct scan showed Large right pleural effusion with complete collapse of right lung. Was transferred to ICU and s/p right chest tube placed and 1600ml bloody fluid drained out. Res status improved after chest tube placement.Currently s/p Pleurx cath placement. Patient on palliative care. Stopped dialysis. Is DNR now. Awaiting transfer to [facility] hospice. Acute hypoxic Resp failure(12/02/16) secondary to large right pleural effusion with complete collapse of right lung transferred to ICU and s/p right chest tube placed - 1600ml bloody fluid drained post procedure patient feeling much better and resp status much improved Pleural effusion mostly from liver failure and renal failure- half-way goal? on iv zosyn started today- await cx from thoracocentesis- no growth . abx stopped Appreciate critical care help currently s/p palliative Pleurx cath placed. Awaiting longterm hospice care similar episode prior ACUTE HYPOXIC RESPIRATORY FAILURE ( 11/20/16)( SECONDARY TO RIGHT PLEURAL EFFUSION POSSIBLE ASPIRATION Pneumonitis PULMONARY EDEMA pleural effusion and pulmonary edema mostly from renal failure and liver cirrhosis s/p Thoracentesis 11/23/[address] Phoenix drained 800cc cx no growth received Zosyn IV Day 10/19- and stopped Speech Therapy Eval: Dental soft, slippery diet received Solumedrol 40mg IV bid received on Lasix 40mg IV + albumin crea was still rising s/p right IJ tunnel catheter nephrology initialed dialyses 11/27/16 to continue dialysis as per nephrology may need terminologist dialysis patient and family ok with palliative care consult currently off of dialysis and awaiting [facility] home hospice care ACUTE RENAL FAILURE ON Chronic Kidney Disease stage IV creatinine on admission 2.5 Creatine on 11/01/16 was 1.7 Nephrology on board received Lasix 40mg IV + albumin BID crea was still rising Initiated on HD as above and stopped as above MORRISON cirrhosis with some pleural effusion, likely hepatic hydrothorax GI reconsulted Liver US to quantify ascites: minimal repeat liver US: small to moderate ascites monitor for progression, may need Paracentesis on HD now repeating US- small volume ascites Elevated Troponin Level on presentation NSTEMI mostly demand ischemia from hypoxia Possible related to recent fall and elevated creatine no chest pain, no EKG changes, no significant findings on echo stable Mechanical Fall in the setting of Orthostatic Hypotension on presentation Norvasc was discontinued Midodrine was discontinued during initial hospital stay due to elevated BP midodrine 2.5mg tid restarted 11/29/16 will monitor BP improved pt/ot when stable Hypotension Midodrine restarted will monitor Thrombocytopenia Related to MORRISON ascites Platelet 121 today Depression/Anxiety Prozac was discontinued on Remeron stable Malnutrition from above comorbidities Prozac changed to Remeron shovel logger help Hiatal Hernia/GERD nonsurgical continue PPI convenience store manager consulted Boost BID added as per convenience store manager DM2 diet-controlled last Ha1c ~ 6.4% on 09/29 DVT ppx SCDs ambulation due to low plt, no anticoagulation CODE STATUS FULL CODE DISPOSITION awaiting longterm hospice social service for d/c planning Vital Signs: Date Time Temp Pulse Resp B/P (MAP) Pulse Ox O2 Delivery O2 Flow Rate FiO2 12/08/16 12:38 Nasal Cannula 2.0 12/08/16 00:00 Nasal Cannula 2.0 12/07/16 16:00 Nasal Cannula 2.0
[2016-12-08] MEDS: MIRTAZAPINE TAB 15 MG TAB PO SCH (20:22)
[2016-12-09] MEDS: MIDODRINE 10 MG TAB PO SCH ×3 (07:23→17:15)
[2016-12-09] MEDS: PANTOprazole SOD 40 MG TAB PO SCH (07:23)
[2016-12-09] MEDS: BOOST GLUCOSE CONTROL PO SCH ×4 (07:23→21:00)
[2016-12-09] MEDS: DOCUSATE SODIUM 100 MG CAP PO SCH ×2 (07:24→21:03)
[2016-12-09 07:48] VITALS: BP 138/89; PULSE 66; TEMP 36.7; O2SAT 97
--- NOTE | 2016-12-09 14:43 | Progress Note ---
Internal Med Progress Note Date of Service: Dec 09, 2016. Provider Documentation: SUBJECTIVE: resting comfortably afebrile denies pain no nausea moved bowels yesterday OBJECTIVE: Vital Signs-as noted below Exam: General-alert and awake. and oriented. ENT-normal hearing Neck-no neck masses Lungs-cta b/l )no wheezing bibasilar crackles present Heart-s1 and s2 heard regular rhythm no murmurs Abdomen-soft bowel sounds present non tender mild distension Extremities-lower extremity edema present no erythema Neuro-alert and oriented moves extremities Lab data as noted below. ASSESSMENT & PLAN: This is a 76 year old female with a PMH of CKD stage IV, DM2, HTN, HLD, GERD, hiatal hernia, MORRISON cirrhosis presented with a fall and found to have elevated troponin and creatinine levels. fall thpought to be from orthostatic hypotension. Norvasc was stopped and midodrine continued. Patient received varying doses of Lasix and albumin for volume overload and sob. Lasix was stopped as Creatine was rising and was s/p thoracocentesis on 11/23/16. Nephrology initiated HD as cr worsening and not responding to diuretics. Seemed to tolerated HD ok. But again today 12/02/16 became sob and was in Resp distress requiring 15lts oxygen and Ct scan showed Large right pleural effusion with complete collapse of right lung. Was transferred to ICU and s/p right chest tube placed and 1600ml bloody fluid drained out. Res status improved after chest tube placement.Currently s/p Pleurx cath placement. Patient on palliative care. Stopped dialysis. Is DNR now. Awaiting transfer to skilled nursing hospice.Comfortable Acute hypoxic Resp failure(12/02/16) secondary to large right pleural effusion with complete collapse of right lung transferred to ICU and s/p right chest tube placed - 1600ml bloody fluid drained post procedure patient feeling much better and resp status much improved Pleural effusion mostly from liver failure and renal failure- jail goal? on iv zosyn started today- await cx from thoracocentesis- no growth . abx stopped Appreciate critical care help currently s/p palliative Pleurx cath placed. Awaiting [facility] care stable currently similar episode prior ACUTE HYPOXIC RESPIRATORY FAILURE ( 11/20/16)( SECONDARY TO RIGHT PLEURAL EFFUSION POSSIBLE ASPIRATION Pneumonitis PULMONARY EDEMA pleural effusion and pulmonary edema mostly from renal failure and liver cirrhosis s/p Thoracentesis 11/23/[address] Phoenix drained 800cc cx no growth received Zosyn IV Day 10/19- and stopped Speech Therapy Eval: Dental soft, slippery diet received Solumedrol 40mg IV bid received on Lasix 40mg IV + albumin crea was still rising s/p right IJ tunnel catheter nephrology initialed dialyses 11/27/16 to continue dialysis as per nephrology may need webbing tacker dialysis patient and family ok with palliative care consult currently off of dialysis and awaiting [facility] care stable currently ACUTE RENAL FAILURE ON Chronic Kidney Disease stage IV creatinine on admission 2.5 Creatine on 11/01/16 was 1.7 Nephrology on board received Lasix 40mg IV + albumin BID crea was still rising Initiated on HD as above and stopped as above MORRISON cirrhosis with some pleural effusion, likely hepatic hydrothorax GI reconsulted Liver US to quantify ascites: minimal repeat liver US: small to moderate ascites monitor for progression, may need Paracentesis on HD now repeating US- small volume ascites hospice care Elevated Troponin Level on presentation NSTEMI mostly demand ischemia from hypoxia Possible related to recent fall and elevated creatine no chest pain, no EKG changes, no significant findings on echo stable Mechanical Fall in the setting of Orthostatic Hypotension on presentation Norvasc was discontinued Midodrine was discontinued during initial hospital stay due to elevated BP midodrine 2.5mg tid restarted 11/29/16 will monitor BP improved pt/ot when stable Hypotension Midodrine restarted will monitor Thrombocytopenia Related to MORRISON ascites Platelet 121 today Depression/Anxiety Prozac was discontinued on Remeron stable Malnutrition from above comorbidities Prozac changed to Remeron oil tester help Hiatal Hernia/GERD nonsurgical continue PPI cook ship consulted Boost BID added as per cook ship DM2 diet-controlled last Ha1c ~ 6.4% on 09/29 DVT ppx SCDs ambulation due to low plt, no anticoagulation CODE STATUS FULL CODE DISPOSITION awaiting [facility] possible d/c in am social service for d/c planning Vital Signs: Date Time Temp Pulse Resp B/P (MAP) Pulse Ox O2 Delivery O2 Flow Rate FiO2 12/09/16 10:10 Nasal Cannula 2.0 12/09/16 00:30 Nasal Cannula 2.0 12/08/16 20:00 Nasal Cannula 2.0 12/08/16 16:13 Nasal Cannula 2.0
[2016-12-09] MEDS: MIRTAZAPINE TAB 15 MG TAB PO SCH (21:03)
[2016-12-10 00:04] VITALS: BP 103/61; PULSE 78; TEMP 37; O2SAT 96
[2016-12-10] MEDS: BOOST GLUCOSE CONTROL PO SCH ×4 (06:30→20:00)
[2016-12-10 08:00] VITALS: O2SAT 94
[2016-12-10] MEDS: DOCUSATE SODIUM 100 MG CAP PO SCH ×2 (08:30→20:00)
[2016-12-10] MEDS: PANTOprazole SOD 40 MG TAB PO SCH (08:31)
[2016-12-10] MEDS: MIDODRINE 10 MG TAB PO SCH ×3 (08:31→17:43)
[2016-12-10 08:35] VITALS: BP 102/59; PULSE 70; TEMP 36.4; O2SAT 94
--- NOTE | 2016-12-10 14:33 | Progress Note ---
Internal Med Progress Note Date of Service: Dec 10, 2016. Provider Documentation: SUBJECTIVE: resting comfortably no pain eating ok awaiting placement OBJECTIVE: Vital Signs-as noted below Exam: General-alert and awake. and oriented. ENT-normal hearing Neck-no neck masses Lungs-cta b/l )no wheezing bibasilar crackles present Heart-s1 and s2 heard regular rhythm no murmurs Abdomen-soft bowel sounds present non tender mild distension Extremities-lower extremity edema present no erythema Neuro-alert and oriented moves extremities Lab data as noted below. ASSESSMENT & PLAN: This is a 76 year old female with a PMH of CKD stage IV, DM2, HTN, HLD, GERD, hiatal hernia, MORRISON cirrhosis presented with a fall and found to have elevated troponin and creatinine levels. fall thpought to be from orthostatic hypotension. Norvasc was stopped and midodrine continued. Patient received varying doses of Lasix and albumin for volume overload and sob. Lasix was stopped as Creatine was rising and was s/p thoracocentesis on 11/23/16. Nephrology initiated HD as cr worsening and not responding to diuretics. Seemed to tolerated HD ok. But again today 12/02/16 became sob and was in Resp distress requiring 15lts oxygen and Ct scan showed Large right pleural effusion with complete collapse of right lung. Was transferred to ICU and s/p right chest tube placed and 1600ml bloody fluid drained out. Res status improved after chest tube placement.Currently s/p Pleurx cath placement. Patient on palliative care. Stopped dialysis. Is DNR now. Awaiting transfer to senior care hospice.Comfortable Awaiting senior care hospice care placement. Hospital course: Acute hypoxic Resp failure(12/02/16) secondary to large right pleural effusion with complete collapse of right lung transferred to ICU and s/p right chest tube placed - 1600ml bloody fluid drained post procedure patient feeling much better and resp status much improved Pleural effusion mostly from liver failure and renal failure- rat exterminator goal? on iv zosyn started today- await cx from thoracocentesis- no growth . abx stopped Appreciate critical care help currently s/p palliative Pleurx cath placed. Awaiting half-way hospice care stable currently similar episode prior ACUTE HYPOXIC RESPIRATORY FAILURE ( 11/20/16)( SECONDARY TO RIGHT PLEURAL EFFUSION POSSIBLE ASPIRATION Pneumonitis PULMONARY EDEMA pleural effusion and pulmonary edema mostly from renal failure and liver cirrhosis s/p Thoracentesis 11/23/[address] Phoenix drained 800cc cx no growth received Zosyn IV Day 10/19- and stopped Speech Therapy Eval: Dental soft, slippery diet received Solumedrol 40mg IV bid received on Lasix 40mg IV + albumin crea was still rising s/p right IJ tunnel catheter nephrology initialed dialyses 11/27/16 to continue dialysis as per nephrology may need [facility] patient and family ok with palliative care consult currently off of dialysis and awaiting half-way hospice care stable currently ACUTE RENAL FAILURE ON Chronic Kidney Disease stage IV creatinine on admission 2.5 Creatine on 11/01/16 was 1.7 Nephrology on board received Lasix 40mg IV + albumin BID crea was still rising Initiated on HD as above and stopped as above MORRISON cirrhosis with some pleural effusion, likely hepatic hydrothorax GI reconsulted Liver US to quantify ascites: minimal repeat liver US: small to moderate ascites monitor for progression, may need Paracentesis on HD now repeating US- small volume ascites hospice care Elevated Troponin Level on presentation NSTEMI mostly demand ischemia from hypoxia Possible related to recent fall and elevated creatine no chest pain, no EKG changes, no significant findings on echo stable Mechanical Fall in the setting of Orthostatic Hypotension on presentation Norvasc was discontinued Midodrine was discontinued during initial hospital stay due to elevated BP midodrine 2.5mg tid restarted 11/29/16 will monitor BP improved pt/ot when stable Hypotension Midodrine restarted will monitor Thrombocytopenia Related to MORRISON ascites Platelet 121 today Depression/Anxiety Prozac was discontinued on Remeron stable Malnutrition from above comorbidities Prozac changed to Remeron manager qa help Hiatal Hernia/GERD nonsurgical continue PPI inorganic chemist consulted Boost BID added as per inorganic chemist DM2 diet-controlled last Ha1c ~ 6.4% on 09/29 DVT ppx SCDs ambulation due to low plt, no anticoagulation CODE STATUS FULL CODE DISPOSITION awaiting half-way hospice possible d/c in am social service for d/c planning Vital Signs: Date Time Temp Pulse Resp B/P (MAP) Pulse Ox O2 Delivery O2 Flow Rate FiO2 12/10/16 08:35 36.4 70 16 102/59 (73) 94 Room Air 12/10/16 08:00 94 Nasal Cannula 2.0 12/10/16 00:04 37.0 78 18 103/61 (51) 96 2.0 12/09/16 23:59 Nasal Cannula 2.0 12/09/16 20:00 Nasal Cannula 2.0 12/09/16 15:58 Nasal Cannula 2.0
--- NOTE | 2016-12-10 16:49 | Progress Note ---
Post ICU Progress Note Date & Time Dec 10, 2016 at 16:46 Vital Signs Vital Signs Past 12 Hours Date Time Temp Pulse Resp B/P (MAP) Pulse Ox O2 Delivery O2 Flow Rate FiO2 12/10/16 16:00 Room Air 12/10/16 08:35 36.4 70 16 102/59 (73) 94 Room Air 12/10/16 08:00 94 Nasal Cannula 2.0 Notes Mental Status: participated in evaluation Nausea / Vomiting: adequately controlled Pain: adequately controlled Airway Patency, RR, SpO2: stable & adequate BP & HR: stable & adequate Patient is a 76-year-old female initially admitted to the ICU with hypoxic respiratory failure secondary to compressive atelectasis from significant RIGHT- sided pleural effusion. Chest tube was placed. The patient underwent aggressive hemodialysis in the ICU. She was found to be in acute hepatorenal syndrome with hepato hydrothorax. The patient was eventually discharged from the ICU. Per records, the patient had a Pleurx catheter placed palliatively. The patient and family have elected to proceed and a palliative fashion. Patient offers no complaints at this time. She is awaiting discharged home for hospice care. Consider outpatient follow up in 1 to 2 weeks with: PCP Repeat imaging needed: None Follow up cultures: None Reviewed progress notes, labs, and inpatient medication list Continue current management Additional recommendations: None Please feel free to reconsult as needed. Critical care team will sign off at this point. Thank you for allowing us to participate in the care of this patient. Consults & Procedures Consultants: KAREL - Marnie Nephrology - Dr. Pacheco Pulm - Dr. Phoenix Procedures: RIGHT IJ Permcath in place
[2016-12-10 17:40] VITALS: BP 107/64; PULSE 65; TEMP 36.5; O2SAT 96
[2016-12-10] MEDS: MIRTAZAPINE TAB 15 MG TAB PO SCH (20:00)
[2016-12-11] MEDS: BOOST GLUCOSE CONTROL PO SCH ×3 (10:07→17:06)
[2016-12-11] MEDS: PANTOprazole SOD 40 MG TAB PO SCH (10:07)
[2016-12-11] MEDS: DOCUSATE SODIUM 100 MG CAP PO SCH (10:07)
[2016-12-11] MEDS: MIDODRINE 10 MG TAB PO SCH ×2 (10:07→12:33)
--- NOTE | 2016-12-11 12:14 | Progress Note ---
Internal Med Progress Note Date of Service: Dec 11, 2016. Provider Documentation: SUBJECTIVE: resting comfortably denies pain no nausea afebrile ok for discharge OBJECTIVE: Vital Signs-as noted below Exam: General-alert and awake. and oriented. ENT-normal hearing Neck-no neck masses Lungs-cta b/l )no wheezing bibasilar crackles present Heart-s1 and s2 heard regular rhythm no murmurs Abdomen-soft bowel sounds present non tender mild distension Extremities-lower extremity edema present no erythema Neuro-alert and oriented moves extremities Lab data as noted below. ASSESSMENT & PLAN: This is a 76 year old female with a PMH of CKD stage IV, DM2, HTN, HLD, GERD, hiatal hernia, MORRISON cirrhosis presented with a fall and found to have elevated troponin and creatinine levels. fall thpought to be from orthostatic hypotension. Norvasc was stopped and midodrine continued. Patient received varying doses of Lasix and albumin for volume overload and sob. Lasix was stopped as Creatine was rising and was s/p thoracocentesis on 11/23/16. Nephrology initiated HD as cr worsening and not responding to diuretics. Seemed to tolerated HD ok. But again today 12/02/16 became sob and was in Resp distress requiring 15lts oxygen and Ct scan showed Large right pleural effusion with complete collapse of right lung. Was transferred to ICU and s/p right chest tube placed and 1600ml bloody fluid drained out. Res status improved after chest tube placement.Currently s/p Pleurx cath placement. Patient on palliative care. Stopped dialysis. Is DNR now. Awaiting transfer to long term hospice.Comfortable. To discharge to [facility] hospice care today 12/11/16 Hospital course: Acute hypoxic Resp failure(12/02/16) secondary to large right pleural effusion with complete collapse of right lung transferred to ICU and s/p right chest tube placed - 1600ml bloody fluid drained post procedure patient feeling much better and resp status much improved Pleural effusion mostly from liver failure and renal failure- long term care social worker goal? on iv zosyn started today- await cx from thoracocentesis- no growth . abx stopped Appreciate critical care help currently s/p palliative Pleurx cath placed. Awaiting half-way hospice care stable currently similar episode prior ACUTE HYPOXIC RESPIRATORY FAILURE ( 11/20/16)( SECONDARY TO RIGHT PLEURAL EFFUSION POSSIBLE ASPIRATION Pneumonitis PULMONARY EDEMA pleural effusion and pulmonary edema mostly from renal failure and liver cirrhosis s/p Thoracentesis 11/23/[address] Phoenix drained 800cc cx no growth received Zosyn IV Day 10/19- and stopped Speech Therapy Eval: Dental soft, slippery diet received Solumedrol 40mg IV bid received on Lasix 40mg IV + albumin crea was still rising s/p right IJ tunnel catheter nephrology initialed dialyses 11/27/16 to continue dialysis as per nephrology may need [facility] patient and family ok with palliative care consult currently off of dialysis and awaiting half-way hospice care stable currently ACUTE RENAL FAILURE ON Chronic Kidney Disease stage IV creatinine on admission 2.5 Creatine on 11/01/16 was 1.7 Nephrology on board received Lasix 40mg IV + albumin BID crea was still rising Initiated on HD as above and stopped as above MORRISON cirrhosis with some pleural effusion, likely hepatic hydrothorax GI reconsulted Liver US to quantify ascites: minimal repeat liver US: small to moderate ascites monitor for progression, may need Paracentesis on HD now repeating US- small volume ascites hospice care Elevated Troponin Level on presentation NSTEMI mostly demand ischemia from hypoxia Possible related to recent fall and elevated creatine no chest pain, no EKG changes, no significant findings on echo stable Mechanical Fall in the setting of Orthostatic Hypotension on presentation Norvasc was discontinued Midodrine was discontinued during initial hospital stay due to elevated BP midodrine 2.5mg tid restarted 11/29/16 will monitor BP improved pt/ot when stable Hypotension Midodrine restarted will monitor Thrombocytopenia Related to MORRISON ascites Platelet 121 today Depression/Anxiety Prozac was discontinued on Remeron stable Malnutrition from above comorbidities Prozac changed to Remeron control room operator help Hiatal Hernia/GERD nonsurgical continue PPI water taxi captain consulted Boost BID added as per water taxi captain DM2 diet-controlled last Ha1c ~ 6.4% on 09/29 DVT ppx SCDs ambulation due to low plt, no anticoagulation CODE STATUS DNR DISPOSITION Transfer to [facility] with hospice care today Vital Signs: Date Time Temp Pulse Resp B/P (MAP) Pulse Ox O2 Delivery O2 Flow Rate FiO2 12/11/16 10:00 Nasal Cannula 2.0 12/11/16 00:00 Nasal Cannula 2.0 12/10/16 20:00 Nasal Cannula 2.0 12/10/16 17:40 36.5 65 16 107/64 (78 96 12/10/16 16:00 Room Air
[2016-12-11] MEDS ORDERED: RMR15 PO (12:18)
[2016-12-11] MEDS ORDERED: BENZ100C7 PO (12:18)
[2016-12-11] MEDS ORDERED: ATV5 PO (12:18)
[2016-12-11] MEDS ORDERED: BUSP-8 PO (12:18)
[2016-12-11] MEDS ORDERED: PRMT10 PO (12:18)
[2016-12-11] MEDS ORDERED: AFRIN (12:18)
[2016-12-11] MEDS ORDERED: NUTR-7 PO (12:18)
[2016-12-11] MEDS ORDERED: OXYC-57 PO (12:18)
[2016-12-11] MEDS ORDERED: POLY335019 PO (12:19)
--- NOTE | 2016-12-11 12:22 | Discharge Instructions ---
Discharge Instructions Date of Service Dec 11, 2016. Admission Reason for Admission: Acute Kidney Injury, Elevated Troponin Discharge Discharge Diagnosis / Problem: acute resp failure, pulmonary edema, pleural effusions, arturo, liver cirrhosi Discharge Goals Goal(s): Decrease discomfort Activity Recommendations Activity Level: Assistance Required Therapies: Physical Therapy, Occupational Therapy . Additional Information Patient informed of condition: Yes Advance Directives: Yes DNR: Yes Level of Care: Other (care home hospice care) Communicable Disease: No Prognosis: Other (hospice care) Clark Catheter: No Instructions / Follow-Up Instructions / Follow-Up FOLLOWUP WITH FAMILY DOCTOR NEEDED. Current Hospital Diet Patient's current hospital diet: AHA Diet (Heart Healthy), Diabetes Type 2 Diet Discharge Diet Recommended Diet: AHA Diet (Heart Healthy), Diabetes Type 2 Diet Procedures Procedures Performed: Insertion right internal jugular vein permcath usn localization of int jugular vein fluoro for positioing conscious sedaton ([id number]) Pending Studies Studies pending at discharge: no Physician Orders On Transfer Special Precautions: fall and aspiration precautions Vital Signs: every 8hrs Additional Orders: TO KEEP DIALYSIS CATH SITE CLEAN. TO DRAIN FROM PLEURX CATHETER ONCE OR TWICE WEEKLY Laboratory Results Hemoglobin A1c Test 11/18/16 06:40 Range/Units Estimated Average Glucose 148 mg/dl Hemoglobin A1c 6.8 H 4.5-5.6 % Lipid Panel Test 11/13/16 05:33 Range/Units Triglycerides Level 100 0-150 mg/dl Cholesterol Level 74 0-200 mg/dl HDL Cholesterol 12 mg/dl Cholesterol/HDL Ratio 6.2 LDL Cholesterol, Calculated 42 mg/dl Medical Emergencies . Who to Call and When: Medical Emergencies: If at any time you feel your situation is an emergency, please call 911 immediately. . Non-Emergent Contact Non-Emergency issues call your: Primary Care Provider . . "Provider Documentation" section prepared by Federico Stephenson. . Core Measure Problem Core Measures: None
--- NOTE | 2016-12-11 12:27 | Discharge Summary ---
Discharge Summary Date of Service Dec 11, 2016. Discharge Summary Admission Date: Nov 12, 2016 at 20:11 Discharge Date: Dec 11, 2016 Discharge Disposition: longterm facility (with hospice care) Principal Diagnosis: ACUTE HYPOXIC RESPIRATORY FAILURE ( 11/20/16)( SECONDARY TO RIGHT PLEURAL EFFUSION POSSIBLE ASPIRATION Pneumonitis PULMONARY EDEMA ACUTE RENAL FAILURE ON Chronic Kidney Disease stage IV hypotension fall elevated troponin Secondary Diagnoses/Problems: (1) Asthma Status: Chronic (2) CKD (chronic kidney disease), stage IV Status: Chronic (3) DM type 2 (diabetes mellitus, type 2) Status: Chronic (4) Dyslipidemia Status: Chronic (5) GERRY (generalized anxiety disorder) Status: Chronic (6) Generalized anxiety disorder Status: Chronic (7) GERD (gastroesophageal reflux disease) Status: Chronic (8) HTN (hypertension) Status: Chronic (9) MORRISON (nonalcoholic steatohepatitis) Status: Chronic (10) Varices, esophageal Status: Chronic Procedures: US gallbladder US abdomen x 2 CT chest x 2 venous duplex echocardiogram x 2 IV meds placement of hemodialysis catheter hemodialysis right chest tube placement right Pleurx cath placement . Consultations: Nephrology GI CCM Pulmonary Medicine Palliative Care . Medication Reconciliation New Medications: Polyethylene Glycol 3350 (Miralax) 1 Pow 17 GM PO DAILY PRN for Constipation for 30 Days, GM Benzonatate (Benzonatate) 100 Mg Cap 100 MG PO TID PRN for cough, #30 CAP Lorazepam (Lorazepam) 0.5 Mg Tab 0.25 MG PO Q6H PRN for anxiety or nausea, #10 TAB Midodrine (Midodrine HCl) 10 Mg Tab 10 MG PO TID@08,12,17, #90 TAB 1 Refill Mirtazapine (Mirtazapine) 15 Mg Tab 7.5 MG PO HS, #30 TAB 1 Refill Nutritional Supplements (Boost) 1 Liq Liq 0.5 CAN PO ACHS for 30 Days, 1 Refill Oxycodone/Acetaminophen 5MG/325MG (Percocet 5MG/325MG) Tab 1 TAB PO Q4H PRN for Pain, #10 TAB PAIN Oxymetazoline HCl (Afrin Nasal [place]) 75 Sprays/15 Ml [place] 1 SPRAYS NA Q6H PRN for epistaxis, #1 SPRAY Continued Medications: Albuterol (Ventolin Hfa) 60 Puffs/5400 Mcg Aers 2 PUFFS INH Q4 PRN for SOB/Wheezing Buspirone Hcl (Buspirone Hcl) 10 Mg Tab 10 MG PO TID, #10 TAB (This prescription has been renewed) Loperamide Hcl (Loperamide Hcl) 2 Mg Tab 2 MG PO UD PRN for Constipation Ondansetron Hcl (Zofran) 4 Mg Tab 4 MG PO Q6H PRN for Nausea, TAB Pantoprazole (Protonix) 40 Mg Tab 40 MG PO DAILY, #30 TAB Discontinued Medications: Amlodipine (Norvasc) 2.5 Mg Tab 2.5 MG PO DAILY, TAB Atorvastatin (Lipitor) 10 Mg Tab 10 MG PO HS, TAB Cholestyramine (Cholestyramine Light) 4 Gm Pack 4 GM PO BID@, for 30 Days, #60 Fluoxetine (Prozac) 40 Mg Cap 80 MG PO DAILY, CAP WITH 20MG CAPS Furosemide (Lasix) 20 Mg Tab 40 MG PO DAILY, TAB Lutein (Hm Lutein) 20 Mg Cap 20 MG PO DAILY Midodrine (Midodrine HCl) 2.5 Mg Tab 5 MG PO TID@08,12,17 for 30 Days, #90 TAB Multiple Vitamins W/ Minerals (Icaps) 1 Cap Cap 1 CAP PO DAILY Potassium Phosphate Monobasic (K-Phos) 500 Mg Tab 250 MG PO BID WITH SODIUM Admission Information HPI (per Admitting provider): 76-year-old female followed by Dr. Sepulveda. 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 She lives at home with her . Hospitalized at [facility] on 09/05/16 with nausea and poor oral intake. Found to have a large hiatal hernia. Evaluated by Thoracic Surgery; felt to be at prohibitively high risk for surgical intervention. Discharge to home on 09/08/16. ED visit on 09/21/16 for ureteral colic. Discharged to home. ED visit on 10/18/16 for worsening renal function attributed to dehydration. Discharged to home. Hospitalized at [facility] on 10/23/16 with acute kidney injury. Paracentesis was performed. No evidence of SBP. Seen in consultation by Nephrology; diuretics were held and albumin administered. Started on midodrine for orthostatic hypotension. Discharge to home on 10/29/16. Has has felt weak since returning home. Today she fell in the bathroom while trying to position herself on the toilet. Generalized weakness and intermittent lightheadedness. No associated syncope, chest pain, focal neurologic symptoms. Intermittent palpitations. She injured her arms when she fell. No apparent head injury or hip injury. . Physical Exam (per Admitting): General Appearance: WD/WN, no apparent distress Head: normocephalic, atraumatic Eyes: normal inspection, PERRL, EOMI, sclerae normal ENT: hearing grossly normal, pharynx normal, + pertinent finding (poor dentition) Neck: supple, no adenopathy, thyroid normal, trachea midline Respiratory/Chest: lungs clear, no respiratory distress, no accessory muscle use Cardiovascular: regular rate, rhythm, no gallop, no murmur, + JVD, + abnormal peripheral pulses (diminished pedal pulses, capillary refill 1-2 sec), + pertinent finding (1+ pretibial, 2+ pedal edema) Abdomen/GI: normal bowel sounds, non tender, soft, no organomegaly, no pulsatile mass, + pertinent finding (moderately distended) Extremities/Musculoskelatal: no calf tenderness, + pertinent finding (no hip pain / tenderness) Neurologic/Psych: grain distributor II-XII nml as tested (PERRL, EOMI, no facial palsy, no dysarthria), no motor/sensory deficits (diffuse motor weakness), alert, oriented x 3, + depressed affect, + pertinent finding (anxious) Skin: normal color, warm/dry, no rash Lymphatic: no adenopathy (cervical) Hospital Course This is a 76 year old female with a PMH of CKD stage IV, DM2, HTN, HLD, GERD, hiatal hernia, MORRISON cirrhosis presented with a fall and found to have elevated troponin and creatinine levels. fall thpought to be from orthostatic hypotension. Norvasc was stopped and midodrine continued. Patient received varying doses of Lasix and albumin for volume overload and sob. Lasix was stopped as Creatine was rising and was s/p thoracocentesis on 11/23/16. Nephrology initiated HD as cr worsening and not responding to diuretics. Seemed to tolerated HD ok. But again today 12/02/16 became sob and was in Resp distress requiring 15lts oxygen and Ct scan showed Large right pleural effusion with complete collapse of right lung. Was transferred to ICU and s/p right chest tube placed and 1600ml bloody fluid drained out. Res status improved after chest tube placement.Currently s/p Pleurx cath placement. Patient on palliative care. Stopped dialysis. Is DNR now. Awaiting transfer to long term hospice.Comfortable. To discharge to [facility] care today 12/11/16 Hospital course: Acute hypoxic Resp failure(12/02/16) secondary to large right pleural effusion with complete collapse of right lung transferred to ICU and s/p right chest tube placed - 1600ml bloody fluid drained post procedure patient feeling much better and resp status much improved Pleural effusion mostly from liver failure and renal failure- mcfp goal? on iv zosyn started today- await cx from thoracocentesis- no growth . abx stopped Appreciate critical care help currently s/p palliative Pleurx cath placed. Awaiting skilled nursing hospice care stable currently similar episode prior ACUTE HYPOXIC RESPIRATORY FAILURE ( 11/20/16)( SECONDARY TO RIGHT PLEURAL EFFUSION POSSIBLE ASPIRATION Pneumonitis PULMONARY EDEMA pleural effusion and pulmonary edema mostly from renal failure and liver cirrhosis s/p Thoracentesis 11/23/[address] [place] drained 800cc cx no growth received Zosyn IV Day 10/19- and stopped Speech Therapy Eval: Dental soft, slippery diet received Solumedrol 40mg IV bid received on Lasix 40mg IV + albumin crea was still rising s/p right IJ tunnel catheter nephrology initialed dialyses 11/27/16 to continue dialysis as per nephrology may need continuous churn buttermaker dialysis patient and family ok with palliative care consult currently off of dialysis and awaiting skilled nursing hospice care stable currently ACUTE RENAL FAILURE ON Chronic Kidney Disease stage IV creatinine on admission 2.5 Creatine on 11/01/16 was 1.7 Nephrology on board received Lasix 40mg IV + albumin BID crea was still rising Initiated on HD as above and stopped as above MORRISON cirrhosis with some pleural effusion, likely hepatic hydrothorax GI reconsulted Liver US to quantify ascites: minimal repeat liver US: small to moderate ascites monitor for progression, may need Paracentesis on HD now repeating US- small volume ascites hospice care Elevated Troponin Level on presentation NSTEMI mostly demand ischemia from hypoxia Possible related to recent fall and elevated creatine no chest pain, no EKG changes, no significant findings on echo stable Mechanical Fall in the setting of Orthostatic Hypotension on presentation Norvasc was discontinued Midodrine was discontinued during initial hospital stay due to elevated BP midodrine 2.5mg tid restarted 11/29/16 will monitor BP improved pt/ot when stable Hypotension Midodrine restarted will monitor Thrombocytopenia Related to MORRISON ascites Platelet 121 today Depression/Anxiety Prozac was discontinued on Remeron stable Malnutrition from above comorbidities Prozac changed to Remeron network professional help Hiatal Hernia/GERD nonsurgical continue PPI school cafeteria head cook consulted Boost BID added as per school cafeteria head cook DM2 diet-controlled last Ha1c ~ 6.4% on 09/29 DVT ppx SCDs ambulation due to low plt, no anticoagulation CODE STATUS DNR DISPOSITION Transfer to [facility] with hospice care today Total time spent on discharge = 30minutes This includes examination of the patient, discharge planning, medication reconciliation, and communication with other providers. Discharge Instructions Discharge Instructions Date of Service Dec 11, 2016. Admission Reason for Admission: Acute Kidney Injury, Elevated Troponin Discharge Discharge Diagnosis / Problem: acute resp failure, pulmonary edema, pleural effusions, arturo, liver cirrhosi Discharge Goals Goal(s): Decrease discomfort Activity Recommendations Activity Level: Assistance Required Therapies: Physical Therapy, Occupational Therapy . Additional Information Patient informed of condition: Yes Advance Directives: Yes DNR: Yes Level of Care: Other (skilled nursing hospice care) Communicable Disease: No Prognosis: Other (hospice care) Clark Catheter: No Instructions / Follow-Up Instructions / Follow-Up FOLLOWUP WITH FAMILY DOCTOR NEEDED. Current Hospital Diet Patient's current hospital diet: AHA Diet (Heart Healthy), Diabetes Type 2 Diet Discharge Diet Recommended Diet: AHA Diet (Heart Healthy), Diabetes Type 2 Diet Procedures Procedures Performed: Insertion right internal jugular vein permcath usn localization of int jugular vein fluoro for positioing conscious sedaton ([id number]) Pending Studies Studies pending at discharge: no Physician Orders On Transfer Special Precautions: fall and aspiration precautions Vital Signs: every 8hrs Laboratory Results Hemoglobin A1c Test 11/18/16 06:40 Range/Units Estimated Average Glucose 148 mg/dl Hemoglobin A1c 6.8 H 4.5-5.6 % Lipid Panel Test 11/13/16 05:33 Range/Units Triglycerides Level 100 0-150 mg/dl Cholesterol Level 74 0-200 mg/dl HDL Cholesterol 12 mg/dl Cholesterol/HDL Ratio 6.2 LDL Cholesterol, Calculated 42 mg/dl Medical Emergencies . Who to Call and When: Medical Emergencies: If at any time you feel your situation is an emergency, please call 911 immediately. . Non-Emergent Contact Non-Emergency issues call your: Primary Care Provider . . "Provider Documentation" section prepared by Federico Stephenson. . Core Measure Problem Core Measures: None
[2016-12-11 13:04] VITALS: BP 107/64; PULSE 65; TEMP 36.5; O2SAT 96
== END 2016-12-11 17:30 | disposition hospice, inpatient (51) | DRG 682 ==
LOC: EDBD 18:04 → C.EDC 18:05 → C.2E 20:11 → ENRESERV 20:27 → CANRESERV 12-02 10:18 → ENRESERV 12-02 10:18 → C.MSICU 12-02 10:21 → ENRESERV 12-05 12:55 → C.2T 12-05 13:05 → EDBEDREQ 12-06 15:06 → ENRESERV 12-06 17:33 → C.4E 12-06 18:47
PROVIDERS: ADMIT Hospitalist; ATTEND Internal Medicine
PROC: 0W993ZX Drainage of Right Pleural Cavity, Percutaneous Approach, Diagnostic (ICD-10-PCS; principal; 2016-11-23)
PROC: 02HV33Z Insertion of Infusion Device into Superior Vena Cava, Percutaneous Approach (ICD-10-PCS; 2016-11-27)
PROC: 0W9930Z Drainage of Right Pleural Cavity with Drainage Device, Percutaneous Approach (ICD-10-PCS; 2016-12-02)
PROC: 0WH93YZ Insertion of Other Device into Right Pleural Cavity, Percutaneous Approach (ICD-10-PCS; 2016-12-07)
PROC: 0WP9X0Z Removal of Drainage Device from Right Pleural Cavity, External Approach (ICD-10-PCS; 2016-12-07)
DX: N17.0 Acute kidney failure with tubular necrosis (principal); J96.01 Acute respiratory failure with hypoxia; J69.0 Pneumonitis due to inhalation of food and vomit; K76.6 Portal hypertension; I85.10 Secondary esophageal varices without bleeding; R18.8 Other ascites; J90 Pleural effusion, not elsewhere classified; J94.8 Other specified pleural conditions; J98.11 Atelectasis; E46 Unspecified protein-calorie malnutrition; Z51.5 Encounter for palliative care; Z66 Do not resuscitate; N18.4 Chronic kidney disease, stage 4 (severe); R79.89 Other specified abnormal findings of blood chemistry; D72.829 Elevated white blood cell count, unspecified; K75.81 Nonalcoholic steatohepatitis (NASH); D64.9 Anemia, unspecified; D69.59 Other secondary thrombocytopenia; E87.5 Hyperkalemia; K44.9 Diaphragmatic hernia without obstruction or gangrene; I12.9 Hypertensive chronic kidney disease with stage 1 through stage 4 chronic kidney disease, or unspecified chronic kidney disease; I95.1 Orthostatic hypotension; E11.22 Type 2 diabetes mellitus with diabetic chronic kidney disease; F41.1 Generalized anxiety disorder; F32.9 Major depressive disorder, single episode, unspecified; R53.81 Other malaise; E78.5 Hyperlipidemia, unspecified; K21.9 Gastro-esophageal reflux disease without esophagitis; J45.909 Unspecified asthma, uncomplicated; R91.1 Solitary pulmonary nodule; R16.1 Splenomegaly, not elsewhere classified; W18.11XA Fall from or off toilet without subsequent striking against object, initial encounter; Y92.002 Bathroom of unspecified non-institutional (private) residence as the place of occurrence of the external cause; Z90.49 Acquired absence of other specified parts of digestive tract; Z90.710 Acquired absence of both cervix and uterus; Z79.899 Other long term (current) drug therapy; Z88.1 Allergy status to other antibiotic agents; Z88.5 Allergy status to narcotic agent; Z80.1 Family history of malignant neoplasm of trachea, bronchus and lung; Z82.49 Family history of ischemic heart disease and other diseases of the circulatory system